=== PATIENT | female | born 1935 | race Caucasian/White ===

== ENCOUNTER → 2017-06-10 | Day surgery (SDC) | payer OTHER ==
[2017-06-06 10:07] VITALS: Ht 160 cm; Wt 81.8 kg
[~2017-06-10] VITALS: Ht 160 cm; Wt 81.8 kg
[~2017-06-10] MED LIST: APR25 PO; ASCO500T3 PO; ASPCH81X PO; ATRINSX INH; CALC600T9 PO; CARV25TA PO; CHOL20007 PO; CLR10 PO; FERR1TAB23 PO; FEXO1TAB49 PO; INSDGI SC; LEVO200T6 PO; LIDOCAINE HCL 2% 2 ML VIAL (20MG/ML) ONE; MAGN400T6 PO; NVLGI/PEN SC; ONDANSETRON INJ 2 MG/ML 2 ML VIAL ONE; PANT40TA PO; PROPOFOL IV EMULSION 10 MG/ML 20 ML VIAL IV ONE; SERT50TA PO; SIMV10TA2 PO; SODIUM CHLORIDE 0.9% 500ML 500 ML IV ONE; TORS20TA2 PO; TRAM-10 PO
--- NOTE | 2017-06-10 10:33 | Endo History and Physical ---
History & Physical Date of Service: Jun 10, 2017. Chief Complaint: Hx polyps, Abnormal CT, RLQ pain Referring Physician: Suzanne Adams History of Present Illness RLQ pain with asymmetric wall thickening of cecum on CT. Past Medical History Anxiety, CHF, Hypertension, Kidney Disease, Valve Replacement, Depression Past Surgical History Hx Cardiac Surgery: Yes (HEART CATH, MITRAL VALVE REPAIR) Hx Internal Defibrillator: No Hx Pacemaker: No Hx Abdominal Surgery: Yes ([place], BILAT OOPHERECTOMY, HYSTERECTOMY) Hx of Implantable Prosthesis: No Hx Post-Op Nausea and Vomiting: No Hx Cancer Surgery: No Hx Thoracic Surgery: No Hx Orthopedic: No Hx Urinary Tract Surgery: No Family History Polyp, IBD Social History Smoking Status: Never Smoker Hx Substance Use: No Hx Alcohol Use: Yes (OCCASIONALLY WINE) Allergies Coded Allergies: No Known Allergies (Unverified , 06/06/17) Current Medications Reported Home Medications Medications Dose Route/Sig Max Daily Dose Days Date Category Lantus (Insulin Glargine) 100 Unit/Ml Inj 10 SC QPM 06/10/17 Reported Claritin (Loratadine) 10 Mg Tab 10 Mg PO QAM 06/06/17 Reported Vitamin D3 (Cholecalciferol) 2,000 Unit Tab 1 Tab PO QAM 04/22/17 Reported Vitamin C (Ascorbic Acid) 500 Mg Tab 1 Tab PO QAM 04/22/17 Reported Calcium + D (Calcium Carbonate-Vitamin D) 1 Tab Tab 1 Tab PO QAM 04/22/17 Reported Aspirin Chewable (Aspirin) 81 Mg Chew 81 Mg PO QAM 04/22/17 Reported Atrovent 0.02% Soln (Ipratropium [place]) 2.5 Ml Nebu 1 Dose INH DIRECTED PRN 04/22/17 Reported Iron (Ferrous Sulfate) 325 Mg Tab 2 Tab PO QAM 04/22/17 Reported Coreg (Carvedilol) 25 Mg Tab 25 Mg PO BID 04/22/17 Reported Levothyroxine Sodium 200 Mcg Tab 1 Tab PO QAM 90 04/22/17 Reported Zocor (Simvastatin) 10 Mg Tab 10 Mg PO QPM 04/22/17 Reported Apresoline (Hydralazine Hcl) 25 Mg Tab 25 Mg PO TID 04/22/17 Reported Demadex (Torsemide) 20 Mg Tab 20 Mg PO BID 04/22/17 Reported Ultram (Tramadol HCl) 50 Mg Tab 50 Mg PO Q8H PRN 04/22/17 Reported Novolog Flexpen (Insulin Aspart) 100 Units/Ml Inj 16 Units SC TID 04/22/17 Reported Zoloft (Sertraline HCl) 50 Mg Tab 50 Mg PO QAM 04/22/17 Reported Telma Allergy (Fexofenadine Hcl) 180 Mg Tab 1 Tab PO HS 04/22/17 Reported Mag-Ox (Magnesium Oxide) 400 Mg Tab 400 Mg PO BID 04/22/17 Reported Protonix (Pantoprazole Sodium) 40 Mg Tab 40 Mg PO QAM 04/22/17 Reported Vital Signs Weight (Kilograms): 81.82 Height (Feet): 5 Height (Inches): 3 Date Time Temp Pulse Resp B/P (MAP) Pulse Ox O2 Delivery O2 Flow Rate FiO2 06/10/17 09:47 36.4 67 18 195/77 (116) 100 Room Air Physical Exam General Appearance: WD/WN, no apparent distress (anxious) Respiratory/Chest: Auscultation: breath sounds normal, no wheezing Cardiovascular: Heart Auscultation: RRR, no murmurs Assessment and Plan Colonoscopy today.
--- NOTE | 2017-06-10 11:17 | GI REPORT ---
Procedure Date: 06/10/2017 10:27 AM Procedure: Colonoscopy Indications: Abdominal pain in the right lower quadrant, Abnormal CT of the GI tract Medicines: Monitored Anesthesia Care Complications: No immediate complications. Estimated blood loss: None. Estimated Blood Loss: Estimated blood loss: none. Procedure: Pre-Anesthesia Assessment: - Prior to the procedure, a History and Physical was performed, and patient medications, allergies and sensitivities were reviewed. The patient's tolerance of previous anesthesia was reviewed. - ASA Grade Assessment: III - A patient with severe systemic disease. After I obtained informed consent, the scope was passed under direct vision. Throughout the procedure, the patient's blood pressure, pulse, and oxygen saturations were monitored continuously. The scope was introduced through the anus and advanced to the terminal ileum, with identification of the appendiceal orifice and IC valve. The colonoscopy was performed with ease. The patient tolerated the procedure well. Findings: Scattered diverticula were found in the sigmoid colon and ascending colon. Impression: - Diverticulosis in the sigmoid colon and in the ascending colon. - No specimens collected. - The colon was otherwise normal to the terminal ileum with retroflexed views of the colon and terminal ileum. Recommendation: - Discharge patient to home (with escort). Jerald Cuevas M.D. Jerald Cuevas MD 06/10/2017 11:17:18 AM This report has been signed electronically. Note Initiated On: 06/10/2017 10:27 AM I attest to the content of the Intraoperative Record and orders documented therein, exceptions below
--- NOTE | 2017-06-10 11:23 | Discharge Instructions ---
Endoscopy Patient Instructions Date / Procedure(s) Performed Jun 10, 2017. Colonoscopy Allergy Information Coded Allergies: No Known Allergies (Unverified , 06/06/17) Discharge Date / Findings Jun 10, 2017. Diverticulosis. Medication Instructions Restart Stopped Medication(s): Restart all medications today Provider Instructions Activity Restrictions - No exercising or heavy lifting for 24 hours. - Do not drink alcohol the day of the procedure. - Do not drive a car or operate machinery until the day after the procedure. - Do not make any important decisions or sign important papers in 24 hours after the procedure. Following Day: - Return to full activity which may include returning to work/school. Diet Start your diet with liquids and light foods (jello, soup, juice, toast). Then eat your usual diet if not nauseated. Treatment For Common After Affects For mild abdominal pain, bloating, or excessive gas: - Rest - Eat lightly - Lie on right side Follow-Up Information Follow-up with Suzanne Adams as scheduled Anesthesia Information What You Should Know You have had a procedure that required some medicine to reduce anxiety and discomfort. This treatment is called moderate sedation. After receiving the treatment, you may be sleepy, but you will be able to breathe on your own. The effects of the treatment may last for several hours. Follow these instructions along with Activity/Diet recommendations noted above: * Do NOT do anything where dizziness or clumsiness would be dangerous. * Rest quietly at home today, then you can be up and about tomorrow. * Have a responsible person stay with you the rest of today. * You may have had an I.V. today. If so, you may take the dressing off later today. Recommendations Call your doctor if: * Trouble breathing * Continuous vomiting for more than 24 hours * Temperature above 101 degrees * Severe abdominal pain or bloating * Pain not relieved by pain medicine ordered * There is increased drainage or redness from any incision * A large amount of rectal bleeding greater than 2-3 tablespoons. (If you had a polyp/s removed or have hemorrhoids, a small amount of blood - from the rectum is to be expected.) * You have any unanswered questions or concerns. IN THE EVENT OF A SERIOUS EMERGENCY, GO TO THE NEAREST EMERGENCY ROOM Your discharge instructions were prepared by provider Jerald Cuevas. Patient Instructions Signature Page Jemma Gunter Patient (or Guardian) Signature/Date: I have read and understand the instructions given to me by my caregivers. Caregiver/RN/Doctor Signature/Date: The above-named patient and/or guardian has received patient instructions on this date. + Original Patient Signature Page (only) stays with chart. Please make copy for patient.
--- NOTE | 2017-06-10 11:25 | Anesthesiology Progress Note ---
Anesthesia Post Op Note Date & Time Jun 10, 2017 at 11:25 Vital Signs Vital Signs Past 12 Hours Date Time Temp Pulse Resp B/P (MAP) Pulse Ox O2 Delivery O2 Flow Rate FiO2 06/10/17 11:15 36.1 66 18 122/63 (82) 100 Room Air 06/10/17 09:47 36.4 67 18 195/77 (116) 100 Room Air Notes Mental Status: alert / awake / arousable, participated in evaluation Pt Amnestic to Procedure: Yes Nausea / Vomiting: adequately controlled Pain: adequately controlled Airway Patency, RR, SpO2: stable & adequate BP & HR: stable & adequate Hydration State: stable & adequate Anesthetic Complications: no major complications apparent
[2017-06-10 11:46] VITALS: BP 149/70; PULSE 68; O2SAT 100
== END | disposition home or self-care (01) ==
LOC: C.GI 09:10
PROVIDERS: ATTEND Internal Medicine Gastroenterology
DX: K57.30 Diverticulosis of large intestine without perforation or abscess without bleeding (principal); I13.0 Hypertensive heart and chronic kidney disease with heart failure and stage 1 through stage 4 chronic kidney disease, or unspecified chronic kidney disease; N18.3 Chronic kidney disease, stage 3 (moderate); I50.9 Heart failure, unspecified; E11.22 Type 2 diabetes mellitus with diabetic chronic kidney disease; J45.909 Unspecified asthma, uncomplicated; K21.9 Gastro-esophageal reflux disease without esophagitis; R32 Unspecified urinary incontinence; D64.9 Anemia, unspecified; F32.9 Major depressive disorder, single episode, unspecified; F41.9 Anxiety disorder, unspecified; E11.42 Type 2 diabetes mellitus with diabetic polyneuropathy; M81.0 Age-related osteoporosis without current pathological fracture; Z79.4 Long term (current) use of insulin; Z79.82 Long term (current) use of aspirin; Z79.899 Other long term (current) drug therapy

== ENCOUNTER 2017-07-07 12:36 | Inpatient (IN) | payer OTHER ==
[~2017-07-07] VITALS: Ht 157.5 cm; Wt 87.0 kg
[~2017-07-07 12:36] MED LIST changes: -LIDOCAINE HCL 2% 2 ML VIAL (20MG/ML) ONE; -ONDANSETRON INJ 2 MG/ML 2 ML VIAL ONE; -PROPOFOL IV EMULSION 10 MG/ML 20 ML VIAL IV ONE; -SODIUM CHLORIDE 0.9% 500ML 500 ML IV ONE
--- NOTE | 2017-07-07 13:26 | EMERGENCY ROOM VISIT NOTE ---
History Report prepared by Destinee: Nasir Tejada Under the Supervision of: Dr. William Johnson M.D. First contact with patient: 13:08 Chief Complaint: SYNCOPE Stated Complaint: PASSED OUT, WEAK, DIABETES LOW Nursing Triage Summary: Pt reports she thought her blood sugar was low last night and went to check it and passed out. This happened around 10pm last night. Pt was lying on floor until 1000 this morning until woke up and called family to help her up. Denies pain. Headache. History of Present Illness The patient is a 81 year old female who presents to the Emergency Room with complaints of episodic syncope at 2200 last night. She notes that she went to her kitchen and then woke up on the floor. She states that she screamed for her , though he was asleep and never came to help her. She woke up on her back and is unsure of how long she was out. She stayed on the floor all night without a blanket. She was found at 1000 this morning by her family members. She has a history of diabetes and reports feeling like her vitals were dropping right before she passed out. She states that she has been nauseous for six months. Her PCP prescribed her Zofran for 4 mg every four hours. She was able to eat food yesterday. She was given chocolate milk this morning and notes her blood sugar was 85. She regularly takes Aspirin. She states that she has not taken her medication this morning because she was nauseous. She denies any fevers or recent illnesses. She notes leg pain. She is scheduled to see Dr. Calle this week. She has lost 30 pounds in the last year and has been unable to eat much in the last six months. Source of History: patient Onset: 2200 last night Position: other (global ) Quality: other (syncope) Timing: other (episodic) Associated Symptoms: + LOC, + nausea, No fevers Note: She denies any recent illnesses. She notes leg pain. Review of Systems See HPI for pertinent positives & negatives. A total of 10 systems reviewed and were otherwise negative. Past Medical & Surgical Medical Problems: (1) CHF (congestive heart failure) (2) CHF (congestive heart failure) (3) Chronic kidney disease (CKD), stage III (moderate) (4) Coronary artery disease (5) Depression (6) Diabetes mellitus, type II (7) Dyslipidemia (8) Fall (9) GERD (gastroesophageal reflux disease) (10) History of adenomatous polyp of colon (11) History of pleural effusion (12) Hypertension (13) Hypothyroidism (14) Mitral valve regurgitation (15) Osteoporosis (16) Pulmonary nodule (17) Venous insufficiency of both lower extremities Surgical Problems: (1) Status post cataract extraction (2) Status post cholecystectomy (3) Status post hysterectomy (4) Status post mitral valve replacement Old medical records were reviewed. Nurse's notes were reviewed and I agree with. Family History FH: heart disease MOTHER Hypertension Social History Smoking Status: Never Smoker Drug Use: none Marital Status: Housing Status: lives with significant other Occupation Status: retired Current/Historical Medications Scheduled Ascorbic Acid (Vitamin C), 1 TAB PO QAM Aspirin (Aspirin Chewable), 81 MG PO QAM Carvedilol (Coreg), 25 MG PO BID Cholecalciferol (Vitamin D3), 1 TAB PO QAM Ferrous Sulfate (Iron), 1 TAB PO BID Hydralazine Hcl (Apresoline), 25 MG PO TID Insulin Aspart (Novolog Flexpen), 16 UNITS SC BID Insulin Glargine (Lantus), 10 SC QPM Levothyroxine Sodium (Levothyroxine Sodium), 1 TAB PO QAM Loratadine (Claritin), 10 MG PO QAM Magnesium Oxide (Mag-Ox), 400 MG PO BID Pantoprazole (Protonix), 40 MG PO QAM Sertraline (Zoloft), 1 TAB PO DAILY Simvastatin (Zocor), 10 MG PO QPM Torsemide (Demadex), 20 MG PO BID Scheduled PRN Ipratropium [place] (Atrovent 0.02% Soln), 1 DOSE INH DIRECTED PRN for Shortness of Breath Ondansetron Hcl (Zofran), 4 MG PO Q4H PRN for Nausea Tramadol (Ultram), 50 MG PO Q8H PRN for Pain Allergies Coded Allergies: No Known Allergies (Unverified , 07/07/17) Physical Exam Vital Signs Date Time Temp Pulse Resp B/P (MAP) Pulse Ox O2 Delivery O2 Flow Rate FiO2 07/07/17 17:17 92 14 120/55 97 Room Air 07/07/17 15:53 85 14 134/68 100 Room Air 07/07/17 14:34 83 16 118/52 100 Room Air 07/07/17 14:01 88 07/07/17 13:55 85 128/80 93 116/60 109/54 07/07/17 12:51 36.3 86 18 111/61 100 Room Air Physical Exam General: Chronically-ill appearing older female, in no acute distress. HEENT: Normal cephalic atraumatic. Pupils are equal round and reactive to light. Extraocular movements are intact. Oropharynx is pink with moist mucous membranes. No swelling of the mouth lips or tongue. Neck: Supple with a midline trachea. No meningeal signs or stiffness, no JVD or bruits. No Stridor. Chest: Clear to auscultation bilaterally. No wheezes or rhonchi. No increased work of breathing. Small bruise on left breast. Heart: regular rate and rhythm. Abdomen: Soft nontender, nondistended without rebound guarding or rigidity. Extremities: No cyanosis clubbing. Chronic pedal edema bilaterally. No calf tenderness or assymetry Spine/Back. Non tender to palpation. No CVA tenderness Skin: Good turgor without rashes. Neurologic exam: Cranial nerves two through 12 are intact. Motor and sensation are intact and symmetrical throughout. Medical Decision & Procedures ER Provider Diagnostic Interpretation: Radiology results as stated below per my review and radiologist interpretation: CHEST ONE VIEW PORTABLE CLINICAL HISTORY: 81 years-old Female presenting with SYNCOPE. TECHNIQUE: Portable upright AP view of the chest was obtained. COMPARISON: 05/02/2016. FINDINGS: Several presumed pericardial wires project over the right hilum and right mediastinum. Surgical clips also noted in this region. Prosthetic mitral valve suspected. Atherosclerosis of aortic arch. Cardiac silhouette enlarged. Left basilar opacity persists. Bilateral blunting of the costophrenic angles greater on the right, possibly pleural fluid or pleural thickening. A prominent skin fold is noted along the lower right lateral thorax. No pneumothorax. 3 screw fixation of the mandibular symphysis noted. Upper abdomen normal. IMPRESSION: 1. Cardiomegaly unchanged. No convincing evidence of acute cardiopulmonary disease. 2. Nodular consolidation at the left lung base corresponds with rounded atelectasis noted on prior CT from 09/16/2015. Electronically signed by: Nathan Hendrix M.D. 07/07/2017 1:23 PM Dictated Date/Time: 07/07/2017 1:20 PM HEAD WITHOUT CONTRAST (CT) CLINICAL HISTORY: 81 years-old Female presenting with eval for trauma, history of syncope last night, on the floor till this morning, found down, headache. TECHNIQUE: Multidetector CT imaging of the head was performed without the use of intravenous contrast. IV contrast: None. A dose lowering technique was used consistent with the principles of ALARA (as low as reasonably achievable). COMPARISON: 05/02/2016. CT DOSE (mGy.cm): The estimated cumulative dose is 537.48 mGy.cm. FINDINGS: Parer topogram: Unremarkable. Proportional ventricular and sulcal prominence, likely age-related parenchymal volume loss. Brain parenchyma normal in appearance with preserved johnson-white differentiation. No mass effect or midline shift. No hemorrhage or acute territorial infarct. No extra-axial fluid collection. Paranasal sinuses and mastoid air cells clear. Calvarium intact. IMPRESSION: 1. No acute intracranial abnormality. Electronically signed by: Nathan Hendrix M.D. 07/07/2017 3:41 PM Dictated Date/Time: 07/07/2017 3:39 PM Laboratory Results 07/07/17 13:49 Red Blood Count 4.69, Mean Corpuscular Volume 92.5, Mean Corpuscular Hemoglobin 31.1, Mean Corpuscular Hemoglobin Concent 33.6, Mean Platelet Volume 9.8, Neutrophils (%) (Auto) 88.5, Lymphocytes (%) (Auto) 5.4, Monocytes (%) (Auto) 5.4, Eosinophils (%) (Auto) 0.0, Basophils (%) (Auto) 0.2, Neutrophils # (Auto) 11.66, Lymphocytes # (Auto) 0.71, Monocytes # (Auto) 0.71, Eosinophils # (Auto) 0.00, Basophils # (Auto) 0.02 07/07/17 13:49 07/07/17 15:01 Test 07/07/17 13:01 07/07/17 13:49 07/07/17 15:01 07/07/17 17:04 Bedside Glucose 176 mg/dl (70-90) White Blood Count 13.16 K/uL (4.8-10.8) Red Blood Count 4.69 M/uL (4.2-5.4) Hemoglobin 14.6 g/dL (12.0-16.0) Hematocrit 43.4 % (37-47) Mean Corpuscular Volume 92.5 fL (80-100) Mean Corpuscular Hemoglobin 31.1 pg (25-34) Mean Corpuscular Hemoglobin Concent 33.6 g/dl (32-36) Platelet Count 274 K/uL (130-400) Mean Platelet Volume 9.8 fL (7.4-10.4) Neutrophils (%) (Auto) 88.5 % Lymphocytes (%) (Auto) 5.4 % Monocytes (%) (Auto) 5.4 % Eosinophils (%) (Auto) 0.0 % Basophils (%) (Auto) 0.2 % Neutrophils # (Auto) 11.66 K/uL (1.4-6.5) Lymphocytes # (Auto) 0.71 K/uL (1.2-3.4) Monocytes # (Auto) 0.71 K/uL (0.11-0.59) Eosinophils # (Auto) 0.00 K/uL (0-0.5) Basophils # (Auto) 0.02 K/uL (0-0.2) RDW Standard Deviation 49.6 fL (36.4-46.3) RDW Coefficient of Variation 14.7 % (11.5-14.5) Immature Granulocyte % (Auto) 0.5 % Immature Granulocyte # (Auto) 0.06 K/uL (0.00-0.02) Anion Gap 9.0 mmol/L (3-11) Est Creatinine Clear Calc Drug Dose 25.9 ml/min Estimated GFR () 31.5 Estimated GFR (Non- 27.2 BUN/Creatinine Ratio 9.4 (10-20) Calcium Level 8.7 mg/dl (8.5-10.1) Total Bilirubin 0.7 mg/dl (0.2-1) Alanine Aminotransferase (ALT/SGPT) 36 U/L (12-78) Alkaline Phosphatase 89 U/L (45-117) Creatine Kinase MB 13.6 ng/ml (0.5-3.6) Creatine Kinase MB Ratio (0-3.0) Troponin I 0.030 ng/ml (0-0.045) Total Protein 6.7 gm/dl (6.4-8.2) Albumin 2.5 gm/dl (3.4-5.0) Globulin 4.2 gm/dl (2.5-4.0) Albumin/Globulin Ratio 0.6 (0.9-2) Thyroid Stimulating Hormone (TSH) 0.354 uIu/ml (0.300-4.500) Aspartate Amino Transf (AST/SGOT) 55 U/L (15-37) Total Creatine Kinase 581 U/L (26-192) Chemistry Specimen Hemolysis Laboratory studies as stated above per my review. Medications Administered Medications (Trade) Dose Ordered Sig/Ethel Route Start Time Stop Time Status Last Admin Dose Admin Sodium Chloride 1,000 ml @ 100 mls/hr Q10H STAT IV 07/07/17 14:09 07/08/17 00:08 07/07/17 14:31 100 MLS/HR ECG Indication: syncope Rate (beats per minute): 77 Rhythm: normal sinus Findings: no acute ischemic change, no ectopy, other (Poor baseline) Change: no significant change (When compared to 05/02/2016) Change: Patient's electrocardiogram was interpreted by me. ED Course 1309: Past medical records reviewed. The patient was evaluated in room B8, and a complete history and physical examination were performed. 1408: I reassessed the patient at this time. She is resting comfortably. 1409: Ordered Sodium Chloride 1,000 ml @ 100 mls/hr IV 1542: I spoke with Dr. Oakes, hospitalist. We discussed the patients case. The patient will be evaluated by the [facility] for further management. 1550: I reassessed the patient at this time. She is resting comfortably. I discussed the results and treatment plan with the patient. I answered all pertaining questions that she had. She expressed understanding and verbalized agreement. The patient will be further evaluated. Medical Decision Differentials include, but are not limited to hypoglycemia. arrhythmia, cardiac disease, and electrolyte or metabolic abnormality. This patient comes in as described above. She had an episode last evening where she felt like her blood sugar was low and she passed out she laid on the floor all evening. She may have hit her head. she denies any other injury she has chronic leg pain and edema. She has chronic renal insufficiency. She feels thirsty. IV access was established was hydrated gently with IV normal saline at 100 mL an hour. She has a long history of CHF and was hydrated carefully because of this. Her chest x-ray shows cardiomegaly but no overt CHF. Her creatinine is elevated slightly compared to baseline at 1.7. Her CK and CK-MB also mildly elevated which may be from falling is possible he could' ve an early rhabdo. She does not appear to have an acute diabetic emergency at present. I did a CAT scan of her head. I do think she needs to be admitted for hydration and further treatment and evaluation. I have consulted and she was seen by the [facility] team in the ER for these measures. Medication Reconcilliation Current Medication List: was personally reviewed by me Blood Pressure Screening Patient's blood pressure: Normal blood pressure Consults Time Called: 1536 Consulting Physician: Dr. Oakes, hospitalist Returned Call: [address] Oakes, hospitalist. We discussed the patients case. The patient will be evaluated by the [facility] for further management. Impression Primary Impression: Hypoglycemia Additional Impressions: Dehydration Rhabdomyolysis Scribe Attestation The scribe's documentation has been prepared under my direction and personally reviewed by me in its entirety. I confirm that the note above accurately reflects all work, treatment, procedures, and medical decision making performed by me. Departure Information Dispostion Being Evaluated By Hospitalist Referrals Suzanne Adams M.D. (PCP) Patient Instructions My [facility] Problem Qualifiers
[2017-07-07 14:01] LABS: BASO % 0.2 %; BASO ABS # 0.02 K/uL (0-0.2); HEMATOCRIT 43.4 % (37-47); HEMOGLOBIN 14.6 g/dL (12.0-16.0); IG# 0.06 K/uL (0.00-0.02); LYMPH % 5.4 %; LYMPH ABS # 0.71 K/uL (1.2-3.4); MEAN CELL VOLUME 92.5 fL (80-100); MEAN CORPUSCULAR HEMOGLOBIN 31.1 pg (25-34); MEAN CORPUSCULAR HGB CONC 33.6 g/dl (32-36); MEAN PLATELET VOLUME 9.8 fL (7.4-10.4); MONO % 5.4 %; MONO ABS # 0.71 K/uL (0.11-0.59); NEUT % 88.5 %; NEUT ABS # 11.66 K/uL (1.4-6.5); PLATELET COUNT 274 K/uL (130-400); RED CELL DISTRIBUTION WIDTH CV 14.7 % (11.5-14.5); RED CELL DISTRIBUTION WIDTH SD 49.6 fL (36.4-46.3); WHITE BLOOD COUNT 13.16 K/uL (4.8-10.8)
[2017-07-07] MEDS ORDERED: SODIUM CHLORIDE 0.9% 1000ML 1,000 ML IV STA (14:09)
[2017-07-07 14:28] LABS: ALBUMIN 2.5 gm/dl (3.4-5.0); ALT/SGPT 36 U/L (12-78); BLOOD UREA NITROGEN 16 mg/dl (7-18); CALCIUM 8.7 mg/dl (8.5-10.1); CARBON DIOXIDE 29 mmol/L (21-32); CREATININE 1.75 mg/dl (0.60-1.20); GLUCOSE 201 mg/dl (70-99); SODIUM 136 mmol/L (136-145)
[2017-07-07 14:41] LABS: ALKALINE PHOSPHATASE 89 U/L (45-117); CKMB 13.6 ng/ml (0.5-3.6); TOTAL PROTEIN 6.7 gm/dl (6.4-8.2)
[2017-07-07 15:24] LABS: POTASSIUM 4.8 mmol/L (3.5-5.1)
--- NOTE | 2017-07-07 15:43 | DIAGNOSTIC IMAGING REPORT ---
HEAD WITHOUT CONTRAST (CT) CLINICAL HISTORY: 81 years-old Female presenting with eval for trauma, history of syncope last night, on the floor till this morning, found down, headache. TECHNIQUE: Multidetector CT imaging of the head was performed without the use of intravenous contrast. IV contrast: None. A dose lowering technique was used consistent with the principles of ALARA (as low as reasonably achievable). COMPARISON: 05/02/2016. CT DOSE (mGy.cm): The estimated cumulative dose is 537.48 mGy.cm. FINDINGS: Motion Picture Camera Lens Technician topogram: Unremarkable. Proportional ventricular and sulcal prominence, likely age-related parenchymal volume loss. Brain parenchyma normal in appearance with preserved johnson-white differentiation. No mass effect or midline shift. No hemorrhage or acute territorial infarct. No extra-axial fluid collection. Paranasal sinuses and mastoid air cells clear. Calvarium intact. IMPRESSION: 1. No acute intracranial abnormality. Electronically signed by: Nathan Hendrix M.D. 07/07/2017 3:41 PM Dictated Date/Time: 07/07/2017 3:39 PM
[2017-07-07] MEDS ORDERED: SERT-234 PO (16:10)
[2017-07-07] MEDS ORDERED: ONDANSETRON INJ 2 MG/ML 2 ML VIAL IV PRN (16:30)
[2017-07-07] MEDS ORDERED: MAGNESIUM HYDROXIDE SUSP 30 ML UDC PO PRN (16:30)
[2017-07-07] MEDS ORDERED: GLUCAGON FOR INJ 1 MG VIAL SQ PRN (16:30)
[2017-07-07] MEDS ORDERED: GLUCOSE 10 TABS/TUBE PO PRN (16:30)
[2017-07-07] MEDS ORDERED: ALUMINUM/MAGNESIUM/SIMETH (MAALOX MAX) 30 ML UDC PO PRN (16:30)
[2017-07-07] MEDS ORDERED: PHARMACY GLYCEMIC MGMT CONSULT PRN (16:45)
[2017-07-07] MEDS ORDERED: ONDA4TAB46 PO (16:51)
--- NOTE | 2017-07-07 17:14 | Pharmacy Progress Note ---
Glycemic Control Intl Consult Date of Service Jul 07, 2017. Scope Glycemic Pharmacist consulted by Dr Oakes on 07/07/17 for glycemic control and to write orders per [facility] inpatient glycemic control protocol Objective Weight (Kilograms): 82.000 Accuchecks BSG (last 24hrs): Test 07/07/17 13:01 07/07/17 13:49 Bedside Glucose 176 mg/dl (70-90) Random Glucose 201 mg/dl (70-99) Laboratory Data (last 24hrs) Test 07/07/17 13:49 07/07/17 15:01 Anion Gap 9.0 mmol/L BUN/Creatinine Ratio 9.4 Blood Urea Nitrogen 16 mg/dl Creatinine 1.75 mg/dl Potassium Level mmol/L 4.8 mmol/L Sodium Level 136 mmol/L White Blood Count 13.16 K/uL Red Blood Count 4.69 M/uL Hemoglobin 14.6 g/dL Hematocrit 43.4 % Mean Corpuscular Volume 92.5 fL Mean Corpuscular Hemoglobin 31.1 pg Mean Corpuscular Hemoglobin Concent 33.6 g/dl Platelet Count 274 K/uL Mean Platelet Volume 9.8 fL Neutrophils (%) (Auto) 88.5 % Lymphocytes (%) (Auto) 5.4 % Monocytes (%) (Auto) 5.4 % Eosinophils (%) (Auto) 0.0 % Basophils (%) (Auto) 0.2 % Neutrophils # (Auto) 11.66 K/uL Lymphocytes # (Auto) 0.71 K/uL Monocytes # (Auto) 0.71 K/uL Eosinophils # (Auto) 0.00 K/uL Basophils # (Auto) 0.02 K/uL HbA1c 9.4% on 11/02/15 (outdated) Recent Pertinent Medications Outpatient Anti-diabetic Regimen: * Lantus 10 units SQ HS * NovoLog 10 units SQ TIDM Assessment & Plan ASSESSMENT: * 81yo T2DM female known to pharmacy from previous admissions/glycemic consults. * Degree of outpatient control unknown - last A1c is outdated. * Pt is admitted with dehydration, weakness, fall possible low blood sugar last evening. * Pt typically requires ~ 30-50 units per day per previous admissions. * Will start on the more conservative side of 30 units/day to minimize risk of hypoglycemia and titrate doses based on BSG trends. * Pt only ordered clear liquid diet so conservative dosing warranted. PLAN FOR INPATIENT GLYCEMIC CONTROL: * Basal insulin * Start with Lantus 10 units SQ HS (outpatient dosing) * May consider increasing dose vs changing to BID if needed tomorrow based on AM fasting BSG * Bolus insulin * NovoLog per scale ACHS or Q6hrs while NPO. Additional checks/coverage at 0000 & 0400 to assess for hypo vs supplement rapid acting insulin incase basal insulin was underdosed. * Goal Range: Low 120 mg/dL - High 160 mg/dL * Correction Factor: 25 mg/dL/unit * Nutritional / Prandial insulin per carb ratio of 1 unit per 8 grams CHO consumed * A1c tomorrow with AM labs * Please note that the plan above was derived based on current level of insulin resistance and hospital stress. These recommendations are appropriate for inpatient admission only. Plan of care upon discharge will need to be reassessed to avoid potential outpatient hypo/hyperglycemia. Thank you.
[2017-07-07] MEDS ORDERED: METOCLOPRAMIDE HCL 10 MG TAB PO PRN (17:45)
[2017-07-07] MEDS ORDERED: INSULIN GLARGINE SOLOSTAR 100 UNITS/ML 3 ML PEN SC SCH ×2 (18:00→21:00)
[2017-07-07 18:21] VITALS: BP 134/74; PULSE 87; TEMP 36.9; O2SAT 97; BMI 33.1
[2017-07-07 18:55] LABS: INR 1.2 (0.9-1.1)
[2017-07-07] MEDS: INSULIN ASPART 100 UNITS/ML 3 ML PEN SC SCH ×3 (19:10→23:49)
[2017-07-07] MEDS: FERROUS SULFATE 325 MG TAB PO SCH (19:11)
--- NOTE | 2017-07-07 19:11 | History and Physical ---
History & Physical Date & Time of Service: Jul 07, 2017 at 18:12 Chief Complaint: Passed Out, Weak, Diabetes Low Primary Care Physician: Suzanne Adams M.D. History of Present Illness Source: patient, family, clinic records, hospital records This is a 81 year old female with a PMH of uncontrolled, insulin dependent diabetes mellitus type 2 with complications including neuropathy, nephropathy and likely gastroparesis; nonobstructive CAD; hx. of mitral valve repair; diastolic CHF; recurrent pleural effusion requiring thoracentesis; HTN; hypothyroidism; CKD stage 3 - presents after getting dizzy, passing out and falling. States she was in her usual state of health until late last night (07/06 ) - she felt like her sugars were low and was planning on going to check when she became dizzy, blacked out and fell to the ground. She does not recall what she hit. States that she was on the ground for about 10-12 hours. She is telling me that she has been nauseous for months now. Because of her nausea, she becomes hypoglycemic when she does not eat. She states that for the past few days, the nausea has been worse, but she has continued to use her Lantus 10 units and NovoLog 10 units twice a day. She tells me that she recently had a colonoscopy with no acute findings; she was started on Zofran. Past Medical/Surgical History Medical Problems: (1) CHF (congestive heart failure) Permanent Comment: due to diastolic dysfunction + valvular heart disease Status: Chronic (2) Chronic kidney disease (CKD), stage III (moderate) Status: Chronic (3) Coronary artery disease Permanent Comment: 40% LAD 2005 Status: Chronic (4) Depression Status: Chronic (5) Diabetes mellitus, type II Status: Chronic (6) Dyslipidemia Status: Chronic (7) GERD (gastroesophageal reflux disease) Status: Chronic (8) History of adenomatous polyp of colon Status: Chronic (9) History of pleural effusion Permanent Comment: s/p thoracentesis Status: Chronic (10) Hypertension Status: Chronic (11) Hypothyroidism Status: Chronic (12) Mitral valve regurgitation Status: Chronic (13) Osteoporosis Status: Chronic (14) Venous insufficiency of both lower extremities Status: Chronic Surgical Problems: (1) Status post cataract extraction Status: Chronic (2) Status post cholecystectomy Status: Chronic (3) Status post hysterectomy Status: Chronic (4) Status post mitral valve replacement Status: Chronic Family History FH: heart disease MOTHER Hypertension Social History Smoking Status: Never Smoker Drug Use: none Marital Status: Housing status: lives with significant other Occupational Status: retired Immunizations History of Influenza Vaccine: Yes Influenza Vaccine Date: Feb 25, 2014 History of Tetanus Vaccine?: Yes Tetanus Immunization Date: Dec 14, 2011 History of Pneumococcal: Yes Pneumococcal Date: Dec 19, 2007 History of Hepatitis B Vaccine: Yes Multi-Drug Resistant Organisms History of MDRO: No Allergies Coded Allergies: No Known Allergies (Unverified , 07/07/17) Home Medications Scheduled Ascorbic Acid (Vitamin C), 1 TAB PO QAM Aspirin (Aspirin Chewable), 81 MG PO QAM Carvedilol (Coreg), 25 MG PO BID Cholecalciferol (Vitamin D3), 1 TAB PO QAM Ferrous Sulfate (Iron), 1 TAB PO BID Hydralazine Hcl (Apresoline), 25 MG PO TID Insulin Aspart (Novolog Flexpen), 16 UNITS SC BID Insulin Glargine (Lantus), 10 SC QPM Levothyroxine Sodium (Levothyroxine Sodium), 1 TAB PO QAM Loratadine (Claritin), 10 MG PO QAM Magnesium Oxide (Mag-Ox), 400 MG PO BID Pantoprazole (Protonix), 40 MG PO QAM Sertraline (Zoloft), 1 TAB PO DAILY Simvastatin (Zocor), 10 MG PO QPM Torsemide (Demadex), 20 MG PO BID Scheduled PRN Ipratropium Huntley (Atrovent 0.02% Soln), 1 DOSE INH DIRECTED PRN for Shortness of Breath Ondansetron Hcl (Zofran), 4 MG PO Q4H PRN for Nausea Tramadol (Ultram), 50 MG PO Q8H PRN for Pain Review of Systems Constitutional: + weakness, + fatigue, No fever, No chills Respiratory: No cough, No sputum, No wheezing, No shortness of breath, No dyspnea on exertion, No dyspnea at rest, No hemoptysis Cardiovascular: No chest pain, No edema, No palpitations Abdomen: + nausea, No pain, No vomiting, No diarrhea, No constipation, No GI bleeding Musculoskeletal: No joint pain, No muscle pain Genitourinary - Female: No dysuria, No urinary frequency, No urinary urgency, No urinary incontinence, No urinary retention, No hematuria Neurologic: + weakness, + numbness/tingling, + vertigo, + balance problems, No memory loss, No paralysis Endocrine: + fatigue, No excessive thirst, No excessive urination Hematologic / Lymphatic: No abnormal bleeding/bruising Integumentary: No rash Allergic / Immunologic: No environmental allergies, No seasonal allergies Physical Exam Vital Signs Date Time Temp Pulse Resp B/P (MAP) Pulse Ox O2 Delivery O2 Flow Rate FiO2 07/07/17 17:17 92 14 120/55 97 Room Air 07/07/17 15:53 85 14 134/68 100 Room Air 07/07/17 14:34 83 16 118/52 100 Room Air 07/07/17 14:01 88 07/07/17 13:55 85 128/80 93 116/60 109/54 07/07/17 12:51 36.3 86 18 111/61 100 Room Air General Appearance: no apparent distress Head: normocephalic, atraumatic Eyes: normal inspection Respiratory/Chest: chest non-tender, no respiratory distress, no accessory muscle use, + decreased breath sounds Cardiovascular: regular rate, rhythm, no murmur Abdomen/GI: normal bowel sounds, non tender, soft Extremities/Musculoskelatal: + swelling (lower extremity edema), + pertinent finding Neurologic/Psych: no motor/sensory deficits, alert, normal mood/affect, oriented x 3 Skin: normal color Lymphatic: no adenopathy Diagnostics Laboratory Results Results Past 24 Hours Test 07/07/17 13:01 07/07/17 13:49 07/07/17 15:01 07/07/17 17:04 Range/Units Bedside Glucose 176 70-90 mg/dl White Blood Count 13.16 4.8-10.8 K/uL Red Blood Count 4.69 4.2-5.4 M/uL Hemoglobin 14.6 12.0-16.0 g/dL Hematocrit 43.4 37-47 % Mean Corpuscular Volume 92.5 80-100 fL Mean Corpuscular Hemoglobin 31.1 25-34 pg Mean Corpuscular Hemoglobin Concent 33.6 32-36 g/dl Platelet Count 274 130-400 K/uL Mean Platelet Volume 9.8 7.4-10.4 fL Neutrophils (%) (Auto) 88.5 % Lymphocytes (%) (Auto) 5.4 % Monocytes (%) (Auto) 5.4 % Eosinophils (%) (Auto) 0.0 % Basophils (%) (Auto) 0.2 % Neutrophils # (Auto) 11.66 1.4-6.5 K/uL Lymphocytes # (Auto) 0.71 1.2-3.4 K/uL Monocytes # (Auto) 0.71 0.11-0.59 K/uL Eosinophils # (Auto) 0.00 0-0.5 K/uL Basophils # (Auto) 0.02 0-0.2 K/uL RDW Standard Deviation 49.6 36.4-46.3 fL RDW Coefficient of Variation 14.7 11.5-14.5 % Immature Granulocyte % (Auto) 0.5 % Immature Granulocyte # (Auto) 0.06 0.00-0.02 K/uL Sodium Level 136 136-145 mmol/L Potassium Level 4.8 3.5-5.1 mmol/L Chloride Level 98 98-107 mmol/L Carbon Dioxide Level 29 21-32 mmol/L Anion Gap 9.0 3-11 mmol/L Blood Urea Nitrogen 16 7-18 mg/dl Creatinine 1.75 0.60-1.20 mg/dl Est Creatinine Clear Calc Drug Dose 25.9 ml/min Estimated GFR () 31.5 Estimated GFR (Non- 27.2 BUN/Creatinine Ratio 9.4 10-20 Random Glucose 201 70-99 mg/dl Calcium Level 8.7 8.5-10.1 mg/dl Total Bilirubin 0.7 0.2-1 mg/dl Aspartate Amino Transf (AST/SGOT) 55 15-37 U/L Alanine Aminotransferase (ALT/SGPT) 36 12-78 U/L Alkaline Phosphatase 89 45-117 U/L Total Creatine Kinase 581 26-192 U/L Creatine Kinase MB 13.6 0.5-3.6 ng/ml Creatine Kinase MB Ratio 0-3.0 Troponin I 0.030 0-0.045 ng/ml Total Protein 6.7 6.4-8.2 gm/dl Albumin 2.5 3.4-5.0 gm/dl Globulin 4.2 2.5-4.0 gm/dl Albumin/Globulin Ratio 0.6 0.9-2 Thyroid Stimulating Hormone (TSH) 0.354 0.300-4.500 uIu/ml Chemistry Specimen Hemolysis Diagnostic Radiology CHEST ONE VIEW PORTABLE CLINICAL HISTORY: 81 years-old Female presenting with SYNCOPE. TECHNIQUE: Portable upright AP view of the chest was obtained. COMPARISON: 05/02/2016. FINDINGS: Several presumed pericardial wires project over the right hilum and right mediastinum. Surgical clips also noted in this region. Prosthetic mitral valve suspected. Atherosclerosis of aortic arch. Cardiac silhouette enlarged. Left basilar opacity persists. Bilateral blunting of the costophrenic angles greater on the right, possibly pleural fluid or pleural thickening. A prominent skin fold is noted along the lower right lateral thorax. No pneumothorax. 3 screw fixation of the mandibular symphysis noted. Upper abdomen normal. IMPRESSION: 1. Cardiomegaly unchanged. No convincing evidence of acute cardiopulmonary disease. 2. Nodular consolidation at the left lung base corresponds with rounded atelectasis noted on prior CT from 09/16/2015. HEAD WITHOUT CONTRAST (CT) CLINICAL HISTORY: 81 years-old Female presenting with eval for trauma, history of syncope last night, on the floor till this morning, found down, headache. TECHNIQUE: Multidetector CT imaging of the head was performed without the use of intravenous contrast. IV contrast: None. A dose lowering technique was used consistent with the principles of ALARA (as low as reasonably achievable). COMPARISON: 05/02/2016. CT DOSE (mGy.cm): The estimated cumulative dose is 537.48 mGy.cm. FINDINGS: Television Analyzer topogram: Unremarkable. Proportional ventricular and sulcal prominence, likely age-related parenchymal volume loss. Brain parenchyma normal in appearance with preserved johnson-white differentiation. No mass effect or midline shift. No hemorrhage or acute territorial infarct. No extra-axial fluid collection. Paranasal sinuses and mastoid air cells clear. Calvarium intact. IMPRESSION: 1. No acute intracranial abnormality. EKG Normal sinus rhythm Normal ECG Impression Assessment and Plan This is a 81 year old female with a PMH of uncontrolled, insulin dependent diabetes mellitus type 2 with complications including neuropathy, nephropathy and likely gastroparesis; nonobstructive CAD; hx. of mitral valve repair; diastolic CHF; recurrent pleural effusion requiring thoracentesis; HTN; hypothyroidism; CKD stage 3 - presents after a fall Fall and Collapse question of possible hypoglycemia episode? monitor in tele orthostatic vitals PT/OT discharge planning eval IVFs Mild Rhabdo Dehydration BARBARA superimposed on CKD stage 3 elevated CPK level plan to give IVFs repeat CPK in AM monitor creatinine, baseline in the low 1's avoid nephrotoxic agents when able nephrology consulted, pt was to see nephrology later this week Diabetic Gastroparesis patient with worsening nausea Zofran is not working as per patient added [facility] consultation for further input Uncontrolled DM2 Ha1c > 12% significantly uncontrolled DM2 Lantus 10 units BID added sliding scale pharmacy glycemic control consulted will need her outpatient insulin adjusted consider adding an HARLEY-I Nonobstructing CAD continue aspirin, b-opal, statin no current chest pain monitor in tele Diastolic CHF hold Torsemide gentle IV hydration monitor for fluid overload HTN continue hydralazine Hypothyroidism continue Synthroid DVT ppx Lovenox FULL CODE VTE Prophylaxis VTE Risk Assessment Done? Y/N: Yes Risk Level: Moderate
[2017-07-07] MEDS: TRAMADOL HCL 50 MG TAB PO PRN (19:19)
[2017-07-07] MEDS ORDERED: TORSEMIDE 20 MG TAB PO SCH (21:00)
[2017-07-07 21:35] VITALS: BP 106/61; PULSE 92
[2017-07-07] MEDS: MAGNESIUM OXIDE 400 MG TAB PO SCH (21:36)
[2017-07-07] MEDS: CARVEDILOL 25 MG TAB PO SCH (21:37)
[2017-07-07] MEDS: FEXOFENADINE HCL 180 MG TAB PO SCH (21:37)
[2017-07-07] MEDS: SIMVASTATIN 10 MG TAB PO SCH (21:38)
[2017-07-07 23:23] VITALS: BP 110/60; PULSE 82; TEMP 37.1; O2SAT 100
[2017-07-08 03:10] VITALS: BP 107/61; PULSE 74; TEMP 37; O2SAT 95
[2017-07-08] MEDS: DEXTROSE 50% 50 ML SYR IV PRN (04:00)
[2017-07-08] MEDS: INSULIN ASPART 100 UNITS/ML 3 ML PEN SC SCH ×5 (04:00→21:00)
[2017-07-08 05:53] LABS: HEMOGLOBIN 10.4 g/dL (12.0-16.0); MEAN CORPUSCULAR HEMOGLOBIN 30.2 pg (25-34); MEAN CORPUSCULAR HGB CONC 32.5 g/dl (32-36); MEAN PLATELET VOLUME 9.5 fL (7.4-10.4); PLATELET COUNT 239 K/uL (130-400); RED CELL DISTRIBUTION WIDTH CV 14.8 % (11.5-14.5); RED CELL DISTRIBUTION WIDTH SD 50.4 fL (36.4-46.3); WHITE BLOOD COUNT 8.51 K/uL (4.8-10.8)
[2017-07-08] MEDS: LEVOTHYROXINE 200 MCG TAB PO SCH (06:13)
[2017-07-08 06:24] LABS: CALCIUM 7.8 mg/dl (8.5-10.1); CREATININE 1.49 mg/dl (0.60-1.20); POTASSIUM 4.2 mmol/L (3.5-5.1)
[2017-07-08] MEDS: GLUCOSE 40% GEL 15 GM TUBE PO PRN (07:36)
[2017-07-08] MEDS: MAGNESIUM OXIDE 400 MG TAB PO SCH ×2 (07:36→21:07)
[2017-07-08] MEDS: CHOLECALCIFEROL 1000 INTER.UNIT TAB PO SCH (07:37)
[2017-07-08] MEDS: CARVEDILOL 25 MG TAB PO SCH ×2 (07:37→21:07)
[2017-07-08] MEDS: LORATADINE 10 MG TAB PO SCH (07:37)
[2017-07-08] MEDS: ASPIRIN 81 MG CHEW PO SCH (07:38)
[2017-07-08] MEDS: SERTRALINE HCL 100 MG TAB PO SCH (07:38)
[2017-07-08] MEDS: FERROUS SULFATE 325 MG TAB PO SCH ×2 (07:38→16:41)
[2017-07-08] MEDS: CALCIUM 600MG + VIT D 400 IU TAB PO SCH (07:39)
[2017-07-08] MEDS: PANTOprazole SOD 40 MG TAB PO SCH (07:39)
[2017-07-08 07:44] VITALS: BP 109/68; TEMP 36.5; O2SAT 99
[2017-07-08] MEDS ORDERED: D5W AND 1/2NSS 1,000 ML IV SCH (08:15)
[2017-07-08] MEDS: BOOST VANILLA PO SCH ×2 (09:00→14:00)
[2017-07-08] MEDS ORDERED: METOCLOPRAMIDE HCL 10 MG TAB PO PRN (09:00)
[2017-07-08] MEDS: ENOXAPARIN 30 MG/0.3 ML SYR SQ SCH (09:00)
--- NOTE | 2017-07-08 09:05 | Pharmacy Progress Note ---
Glycemic Control Progress Note Date of Service Jul 08, 2017. Scope Glycemic Pharmacist consulted for glycemic control to write orders per [facility] inpatient glycemic control protocol. Objective Accuchecks BSG (last 24hrs): Test 07/07/17 13:01 07/07/17 13:49 07/07/17 18:56 07/07/17 20:26 Bedside Glucose 176 mg/dl (70-90) 208 mg/dl (70-90) 262 mg/dl (70-90) Random Glucose 201 mg/dl (70-99) Test 07/07/17 23:43 07/08/17 04:15 07/08/17 05:20 Bedside Glucose 75 mg/dl (70-90) 114 mg/dl (70-90) Random Glucose 81 mg/dl (70-99) HbA1c: 12.2 % Recent Pertinent Medications The patient is currently receiving: * Basal insulin: Lantus 14 units sq HS * Correctional Insulin: Novolog Correction per scale ACHS Goal Range: Low 120 mg/dL - High 160 mg/dL Correction Factor: 20 mg/dL/unit * Prandial insulin: Per carb ratio of 1 unit per 8 grams CHO consumed Outpatient Anti-Diabetic Meds * Lantus 10 units SQ HS * NovoLog 10 units SQ TIDM Assessment & Plan ASSESSMENT: * See progress note from 07/07/17 for more background info, in short: * Pt receiving SQ basal bolus insulin regimen for hyperglycemia secondary to baseline DM (outpatient regimen on hold). Patient reports worsening diabetic gastroparesis. She has been experiencing hypoglycemia at home. Very poor outpatient control, A1c 12.2%. * Home regimen is bolus heavy. Patient was ordered home dose of Lantus 10 units last evening. An additional dose of 4 units was given due to BSG > 200 mg/dL x2. * BSGs over the past 24hrs: 176, 208, 262, 75, 25, 65 * Changes needed to insulin regimen: * AM Fasting BSG = 65 mg/dl. This is below goal range for patient based on inpatient targets and co-morbidities. Therefore Basal insulin needs decreased. Will change to Lantus dose per scale until needs are better determined. * Post-prandial BSGs are improving, however very limited BSG data at this point. Will loosen current CF/CR due to hypoglycemia overnight, although I suspect this was due basal insulin rather than bolus. PLAN FOR INPATIENT GLYCEMIC CONTROL: * Basal insulin * Lantus SQ HS * 0 units for BSG less than 110 mg/dL * 4 units for BSG 110-180 mg/dL * 8 units for BSG greater than 180 mg/dL * Bolus insulin - loosen * NovoLog per scale ACHS or Q6hrs while NPO * Goal Range: Low 120 mg/dL - High 160 mg/dL * Correction Factor: 25 mg/dL/unit * Nutritional / Prandial insulin per carb ratio of 1 unit per 8 grams CHO consumed * Add overnight check since pt is experiencing both hyper and hypoglycemia * Please note that the plan above was derived based on current level of insulin resistance and hospital stress. These recommendations are appropriate for inpatient admission only. Plan of care upon discharge will need to be reassessed to avoid potential outpatient hypo/hyperglycemia. Thank you.
[2017-07-08 09:10] LABS: HEMOGLOBIN A1C 12.2 % (4.5-5.6)
--- NOTE | 2017-07-08 10:05 | NEPHROLOGY CONSULTATION ---
DATE OF CONSULTATION: 07/08/2017 ATTENDING OF RECORD: Fletcher Farfan MD. REASON FOR CONSULTATION: BARBARA. HISTORY OF PRESENT ILLNESS: This is a 81-year-old female with a history of type 2 diabetes as well as chronic kidney disease stage III, who follows in my outpatient clinic who felt her blood sugars were low and as she was moving to the kitchen to check her blood sugars, she passed out. She woke up around 3:00 in the morning and was unable to get up. Her was sleeping heavily and did not hear her in the kitchen, did not find her until 8:00 in the morning. The patient had been on the ground for close to 10 hours at that time. The patient comes in with a creatinine of 1.75. CK of 581, which is trending down to 303 and this morning her creatinine has improved to 1.49. The patient is comfortable sitting in her chair complaining of more painful legs that are tender to touch with some erythema at both sides. Urine culture was ordered and is pending. The patient is on D5 half normal at 100 mL an hour. The patient with diabetes since 2004, hypertension since 1989, hemoglobin A1c has been difficult to control. Does have a history of mitral valve repair in 2012. Has had lymphedema for over 10 years, has a baseline kidney function of 13, although it does vary a lot depending on dose of diuretics to help control the lymphedema. REVIEW OF SYSTEMS: Positive fatigue. Positive pain in legs. Positive lymphedema. Occasional chest pain with exertion. No shortness of breath. No cough. No change in weight. No swelling in the neck. Positive nocturia. No nausea or vomiting. No diarrhea or constipation. No seizure or tremors. No itching. All other review of systems otherwise negative. SOCIAL HISTORY: The patient is . No smoking, no alcohol, no drugs. Lives at home. FAMILY HISTORY: Significant for a brother with leukemia. Mother with MA. PAST MEDICAL HISTORY: CKD stage III, baseline creatinine of 1.3 and type 2 diabetes, difficult to control, hypertension, hypothyroidism, heart failure, mitral valve disease, history of pleural effusions requiring drainage in the past. PAST SURGICAL HISTORY: Mitral valve repair, cataract surgery, cholecystectomy, bypass to the heart, hysterectomy. CURRENT MEDICATIONS: Lantus at night, aspirin 81 mg a day, Claritin 10 mg daily, Protonix 40 mg daily, Zoloft 100 mg daily, Caltrate 1 tab daily, vitamin D 2000 units daily, Reglan as needed, Boost 1 can p.o. t.i.d., D5 half normal at 100 mL an hour, Synthroid 200 mcg daily, Coreg 25 mg p.o. b.i.d., Telma 180 mg at night, hydralazine 25 mg p.o. t.i.d., mag oxide 400 mg p.o. b.i.d., Zocor 10 mg at night, iron 325 p.o. b.i.d., sliding scale insulin. PHYSICAL EXAMINATION: VITAL SIGNS: Temperature 36.5, pulse 74, respiratory rate 20, blood pressure is 109/68, satting 99% on room air. GENERAL: Awake, alert, oriented x3. EYES: No scleral icterus. ENT: Moist mucous membranes. NECK: Supple. PULMONARY: Decreased breath sounds at bases. CARDIAC: Regular rate and rhythm. ABDOMEN: Bowel sounds positive, soft, nontender. EXTREMITIES: +1 pitting edema with some chronic venous stasis changes. NEUROLOGICALLY: Positive neuropathy. Ambulates with a cane/walker. DERMATOLOGIC: No rash or ulcers noted. LABORATORIES: Sodium level is 138, potassium 4.2, chloride is 101, bicarb is 32, BUN is 15, creatinine is 1.49, glucose 81. Hemoglobin A1c 12.2, calcium is 7.8. CK is 303. White count 8.5, H&H 10 and 32, platelet count is 239. INR is 1.2. UA shows large leukocyte esterase, greater than 30 WBCs. Urine culture is pending. Chest x-ray on admission shows cardiomegaly with no convincing evidence of acute cardiopulmonary disease. IMPRESSION AND PLAN: 1. Acute kidney injury on chronic kidney disease stage III with baseline creatinine of 1.3, although it tends to vary depending on the dose of diuretics, the patient's creatinine was 1.75, this morning is down to 1.49. Would consider stopping IV fluids tomorrow. 2. Elevated creatinine kinase. The patient technically does not have rhabdomyolysis, had a CK of 581 which is trending down to 303, not significant enough to cause acute kidney injury and/or rhabdomyolysis. I would not necessarily continue fluids just for the elevated CK, however, may benefit from another 24 hours of fluids to catcher helper in creatinine improving back down below 1.4. I would plan on stopping IV fluids tomorrow. We will discuss the case further with the hospitalist. Urinalysis was concerning for urinary tract infection. Urine culture is pending. Perhaps urinary tract infection may have been the precipitating factor for low blood sugars, although the patient's blood sugars have been difficult to control in the past with hemoglobin A1c in the 12s. So perhaps this may purely just be difficult to control diabetes with a blood sugar that drops causing her to pass out and land on the floor for an extended period of time and then presented with an element of volume depletion. I appreciate the consultation. MARSHA
--- NOTE | 2017-07-08 10:29 | Gastrointestinal Consultation ---
Gastrointestinal Consultation Date of Consultation: Jul 08, 2017 Attending Physician: Fletcher Farfan Consulting Physician: Lindsay Gonzales Reason for Consultation: Nausea, ? gastroparesis History of Present Illness Patient is a 81 year old female who presented to ED after a fall. She was feeling dizzy, felt that she had passed out and fell when she was just about to check her blood sugar. She reports she had lay on the ground for about 10 hours. Upon evaluation in ED, labs showed mild leukocytosis, WBC 13, H/H w mild anemia at her baseline , BSG 176. She has poorly controlled diabetes, last A1C earlier this year was 12. Noted BARBARA Cr 1.4 up from baseline 1.7. CK 500s. Head CT and CXR showed no acute processes. GI consulted for pt's complaint of nausea which had been present for "a long time". She reports that she has had taste changes, and since April her nausea was getting worse. No vomiting with the nausea. Denies any bloating, or early fullness. Was tried on Ondansetron 4mg q6hrs recently changed to q4hrs which she had only been taking for last 2 days and didn't notice much improvement on nausea. She had lost 30 lbs in last 1 yr due to poor appetite and intake. Currently supplementing with Boost at home. She denies any abd pain , or constipation, rectal bleeding. Had CT abd/pelvis w PO contrast only which showed asymmetrical cecal wall thickening ? ? malignancy. She had a colonoscopy on 06/10/17 which showed diverticulosis on ascending colon areas. She had a hx of choledocholithiasis and cholangitis (is s/p cholecystectomy) in 2003 requiring ERCP procedure. Her LFTs here are normal. Past Medical/Surgical History Medical Problems: (1) Abnormal laboratory test result Status: Acute (2) CHF exacerbation Status: Acute (3) Dehydration Status: Acute (4) Dehydration Status: Acute (5) Hyperglycemia Status: Acute (6) Hypoglycemia Status: Acute (7) Hypomagnesemia Status: Acute (8) Pedal edema Status: Acute (9) Pleural effusion, right Status: Acute (10) Rhabdomyolysis Status: Acute (11) Sepsis Status: Acute (12) UTI (urinary tract infection) Status: Acute (13) UTI (urinary tract infection) Status: Acute Past Medical History: PMHx of uncontrolled DM II, neuropathy, nephropathy, suspected gastroparesis, CAD, hx of mitral valve repair, CHD, recurrent pleural effusion s/p thoracentesis, HTN, hypothyroidism, CKD III, depression, dyslipidemia, GERD, osteoporosis. Past Surgical History: Cataract surgery Cholecystectomy Hysterectomy Mitral valve replacement Family History FH: heart disease MOTHER Hypertension Social History Smoking Status: Never Smoker Drug Use: none Marital Status: Housing Status: lives with significant other Occupation Status: retired Allergies Coded Allergies: No Known Allergies (Unverified , 07/07/17) Current Medications Home Meds and Scripts Medications Dose Route/Sig Max Daily Dose Days Date Category Zofran (Ondansetron HCl) 4 Mg Tab 4 Mg PO Q4H PRN 07/07/17 Reported Zoloft (Sertraline HCl) 100 Mg Tab 1 Tab PO DAILY 90 07/07/17 Reported Lantus (Insulin Glargine) 100 Unit/Ml Inj 10 SC QPM 06/10/17 Reported Claritin (Loratadine) 10 Mg Tab 10 Mg PO QAM 06/06/17 Reported Vitamin D3 (Cholecalciferol) 2,000 Unit Tab 1 Tab PO QAM 04/22/17 Reported Vitamin C (Ascorbic Acid) 500 Mg Tab 1 Tab PO QAM 04/22/17 Reported Aspirin Chewable (Aspirin) 81 Mg Chew 81 Mg PO QAM 04/22/17 Reported Atrovent 0.02% Soln (Ipratropium [place]) 2.5 Ml Nebu 1 Dose INH DIRECTED PRN 04/22/17 Reported Iron (Ferrous Sulfate) 325 Mg Tab 1 Tab PO BID 04/22/17 Reported Coreg (Carvedilol) 25 Mg Tab 25 Mg PO BID 04/22/17 Reported Levothyroxine Sodium 200 Mcg Tab 1 Tab PO QAM 90 04/22/17 Reported Zocor (Simvastatin) 10 Mg Tab 10 Mg PO QPM 04/22/17 Reported Apresoline (Hydralazine Hcl) 25 Mg Tab 25 Mg PO TID 04/22/17 Reported Demadex (Torsemide) 20 Mg Tab 20 Mg PO BID 04/22/17 Reported Ultram (Tramadol HCl) 50 Mg Tab 50 Mg PO Q8H PRN 04/22/17 Reported Novolog Flexpen (Insulin Aspart) 100 Units/Ml Inj 16 Units SC BID 04/22/17 Reported Mag-Ox (Magnesium Oxide) 400 Mg Tab 400 Mg PO BID 04/22/17 Reported Protonix (Pantoprazole Sodium) 40 Mg Tab 40 Mg PO QAM 04/22/17 Reported Review of Systems Constitutional: + see HPI, + weight loss, + weakness, No fever, No chills Respiratory: No cough, No shortness of breath Cardiac: No chest pain Abdomen: + nausea, No pain, No vomiting, No diarrhea, No constipation, No GI bleeding Physical Exam Date Time Temp Pulse Resp B/P (MAP) Pulse Ox O2 Delivery O2 Flow Rate FiO2 07/08/17 07:44 36.5 20 109/68 (82) 99 Room Air 07/08/17 04:00 Room Air 07/08/17 03:10 37.0 74 18 107/61 (76) 95 Room Air 07/08/17 00:00 Room Air 07/07/17 23:23 37.1 82 20 110/60 (77) 100 Room Air 07/07/17 21:35 92 106/61 (76) 07/07/17 20:00 Room Air 07/07/17 18:21 36.9 87 20 134/74 97 Room Air 07/07/17 17:17 92 14 120/55 97 Room Air 07/07/17 15:53 85 14 134/68 100 Room Air 07/07/17 14:34 83 16 118/52 100 Room Air 07/07/17 14:01 88 07/07/17 13:55 85 128/80 93 116/60 109/54 07/07/17 12:51 36.3 86 18 111/61 100 Room Air General Appearance: no apparent distress, + obese Eyes: normal inspection, PERRL, EOMI Neck: supple, no JVD, trachea midline Respiratory/Chest: normal breath sounds, no respiratory distress, no accessory muscle use Cardiovascular: regular rate, rhythm, no gallop, no murmur Abdomen: normal bowel sounds, non tender, soft Extremities: normal inspection, no pedal edema, no calf tenderness Neurologic/Psych: alert, normal mood/affect, oriented x 3 Skin: normal color, no jaundice, no rash Laboratory Results Last 24 Hours Test 07/07/17 13:01 07/07/17 13:49 07/07/17 15:01 07/07/17 18:38 Bedside Glucose 176 mg/dl White Blood Count 13.16 K/uL Red Blood Count 4.69 M/uL Hemoglobin 14.6 g/dL Hematocrit 43.4 % Mean Corpuscular Volume 92.5 fL Mean Corpuscular Hemoglobin 31.1 pg Mean Corpuscular Hemoglobin Concent 33.6 g/dl Platelet Count 274 K/uL Mean Platelet Volume 9.8 fL Neutrophils (%) (Auto) 88.5 % Lymphocytes (%) (Auto) 5.4 % Monocytes (%) (Auto) 5.4 % Eosinophils (%) (Auto) 0.0 % Basophils (%) (Auto) 0.2 % Neutrophils # (Auto) 11.66 K/uL Lymphocytes # (Auto) 0.71 K/uL Monocytes # (Auto) 0.71 K/uL Eosinophils # (Auto) 0.00 K/uL Basophils # (Auto) 0.02 K/uL RDW Standard Deviation 49.6 fL RDW Coefficient of Variation 14.7 % Immature Granulocyte % (Auto) 0.5 % Immature Granulocyte # (Auto) 0.06 K/uL Sodium Level 136 mmol/L Potassium Level mmol/L 4.8 mmol/L Chloride Level 98 mmol/L Carbon Dioxide Level 29 mmol/L Anion Gap 9.0 mmol/L Blood Urea Nitrogen 16 mg/dl Creatinine 1.75 mg/dl Est Creatinine Clear Calc Drug Dose 25.9 ml/min Estimated GFR () 31.5 Estimated GFR (Non- 27.2 BUN/Creatinine Ratio 9.4 Random Glucose 201 mg/dl Calcium Level 8.7 mg/dl Total Bilirubin 0.7 mg/dl Aspartate Amino Transf (AST/SGOT) U/L 55 U/L Alanine Aminotransferase (ALT/SGPT) 36 U/L Alkaline Phosphatase 89 U/L Total Creatine Kinase U/L 581 U/L Creatine Kinase MB 13.6 ng/ml Creatine Kinase MB Ratio Troponin I 0.030 ng/ml Total Protein 6.7 gm/dl Albumin 2.5 gm/dl Globulin 4.2 gm/dl Albumin/Globulin Ratio 0.6 Thyroid Stimulating Hormone (TSH) 0.354 uIu/ml Chemistry Specimen Hemolysis Prothrombin Time 13.0 SECONDS Prothromb Time International Ratio 1.2 Test 07/07/17 18:56 07/07/17 20:26 07/07/17 23:43 07/08/17 02:20 Bedside Glucose 208 mg/dl 262 mg/dl 75 mg/dl Urine Color YELLOW Urine Appearance CLOUDY Urine pH 6.5 Urine Specific [place] 1.015 Urine Protein NEG Urine Glucose (UA) NEG Urine Ketones NEG Urine Occult Blood NEG Urine Nitrite NEG Urine Bilirubin NEG Urine Urobilinogen NEG Urine Leukocyte Esterase LARGE Urine WBC (Auto) >30 /hpf Urine RBC (Auto) 0-4 /hpf Urine Hyaline Casts (Auto) 0 /lpf Urine Epithelial Cells (Auto) >30 /lpf Urine Bacteria (Auto) 1+ Test 07/08/17 04:15 07/08/17 05:20 Bedside Glucose 114 mg/dl White Blood Count 8.51 K/uL Red Blood Count 3.44 M/uL Hemoglobin 10.4 g/dL Hematocrit 32.0 % Mean Corpuscular Volume 93.0 fL Mean Corpuscular Hemoglobin 30.2 pg Mean Corpuscular Hemoglobin Concent 32.5 g/dl RDW Standard Deviation 50.4 fL RDW Coefficient of Variation 14.8 % Platelet Count 239 K/uL Mean Platelet Volume 9.5 fL Sodium Level 138 mmol/L Potassium Level 4.2 mmol/L Chloride Level 101 mmol/L Carbon Dioxide Level 32 mmol/L Anion Gap 5.0 mmol/L Blood Urea Nitrogen 15 mg/dl Creatinine 1.49 mg/dl Est Creatinine Clear Calc Drug Dose 30.3 ml/min Estimated GFR () 38.3 Estimated GFR (Non- 33.1 BUN/Creatinine Ratio 10.2 Random Glucose 81 mg/dl Estimated Average Glucose 303 mg/dl Hemoglobin A1c 12.2 % Calcium Level 7.8 mg/dl Total Creatine Kinase 303 U/L Impression Patient is a 81 year old female currently seen for chronic nausea w/o vomiting, weight loss (reported 30lbs in last year), taste changes. CT abd/pelvis w/ PO contrast last April (in [facility]), showed no acute processes/obstruction but pancreas noted to be markedly atrophied w pancreas duct dilated to 8mm. There was also an asymmetry of cecal wall thickening for which she had colonoscopy evaluation 06/10/17 w normal results. DDx: gastritis, PUD, Hpylori (hx of this in 2010), gastroparesis, chronic pancreatitis. She's never had gastric emptying study before nor EGD evaluation. She's a bit hesitant for EGD eval, wants to discuss with daughter but willing to have gastric emptying study. Plan - Ordered Lipase to add on to chem panel today - Gastric emptying study - Reglan 5mg PO q8hrs prn nausea/vomiting - Protonix 40mg daily - Check stool Hpylori (hx of this in 2010). - Ok to advance to [place], diabetic diet. - Will rediscuss with her about EGD eval at afternoon rounds. -> pt is agreeable to EGD eval, thus will make her NPO after midnight for EGD tomorrow I performed a history and physical examination of the patient, including specifically on physical exam - abdomen is soft.I have discussed the patient's management with Melba. Please refer to the FAMILY AND DIVORCE LEGAL ASSISTANT's note for the documented findings and plan of care. patient agrees for EGD tomorrow. Continue PPI and PRN antiemetics. EUS as outpatient for dilated PD on CT scan.
[2017-07-08 11:37] VITALS: BP 96/61; PULSE 78; TEMP 36.7; O2SAT 93
[2017-07-08 12:53] VITALS: BMI 32.9
[2017-07-08 16:11] VITALS: BP_SYST 104; BP_SYST 91; BP_SYST 99; BP_DIAS 54; BP_DIAS 57; BP_DIAS 59; PULSE 66; PULSE 67; PULSE 76; TEMP 36.7; O2SAT 100
[2017-07-08] MEDS: TRAMADOL HCL 50 MG TAB PO PRN ×2 (16:44→23:57)
[2017-07-08 16:57] VITALS: BMI 32.9
[2017-07-08 19:58] VITALS: BP 113/65; PULSE 80; TEMP 36.8; O2SAT 94
--- NOTE | 2017-07-08 20:37 | Progress Note ---
Medicine Progress Note Date & Time of Visit: Jul 08, 2017 at 18:20 . Subjective CC: Follow-up visit for multiple problems. HPI: Has no recollection how she ended up on floor at home. Was lying on floor for several hours before her found her. No episodes of syncope or lightheadedness since admission. No chest pain, palpitations, dyspnea. BP's relatively low at times. Blood sugars low this morning. ROS: General- no fever, no chills Resp- no cough; no shortness of breath Cardiac- as noted above in HPI GI- no nausea, no vomiting, no diarrhea, no constipation - no dysuria, no difficulty voiding . Objective Last 8 Hrs Date Time Temp Pulse Resp B/P (MAP) Pulse Ox O2 Delivery O2 Flow Rate FiO2 07/08/17 20:00 Room Air 07/08/17 19:58 36.8 80 18 113/65 (81) 94 Room Air 07/08/17 16:11 36.7 67 16 104/57 (73) 100 Room Air 66 99/59 (72) 76 91/54 (66) 07/08/17 16:00 Room Air Physical Exam: General- lying in bed; no distress Lungs- clear to auscultation; no respiratory distress Cardiovascular- RRR; II/ systolic murmur LSB; no diastolic murmur appreciated ; no gallop; no JVD; no pretibial edema Abdomen- + bowel sounds, soft, nontender Extremities- no cyanosis; no calf tenderness Neuro- alert, oriented Skin- warm & dry . Laboratory Results: Last 24 Hours Test 07/07/17 23:43 07/08/17 02:20 07/08/17 03:56 07/08/17 04:15 Bedside Glucose 75 mg/dl 25 mg/dl 114 mg/dl Urine Color YELLOW Urine Appearance CLOUDY Urine pH 6.5 Urine Specific [place] 1.015 Urine Protein NEG Urine Glucose (UA) NEG Urine Ketones NEG Urine Occult Blood NEG Urine Nitrite NEG Urine Bilirubin NEG Urine Urobilinogen NEG Urine Leukocyte Esterase LARGE Urine WBC (Auto) >30 /hpf Urine RBC (Auto) 0-4 /hpf Urine Hyaline Casts (Auto) 0 /lpf Urine Epithelial Cells (Auto) >30 /lpf Urine Bacteria (Auto) 1+ Test 07/08/17 05:20 07/08/17 07:29 07/08/17 07:50 07/08/17 08:04 White Blood Count 8.51 K/uL Red Blood Count 3.44 M/uL Hemoglobin 10.4 g/dL Hematocrit 32.0 % Mean Corpuscular Volume 93.0 fL Mean Corpuscular Hemoglobin 30.2 pg Mean Corpuscular Hemoglobin Concent 32.5 g/dl RDW Standard Deviation 50.4 fL RDW Coefficient of Variation 14.8 % Platelet Count 239 K/uL Mean Platelet Volume 9.5 fL Sodium Level 138 mmol/L Potassium Level 4.2 mmol/L Chloride Level 101 mmol/L Carbon Dioxide Level 32 mmol/L Anion Gap 5.0 mmol/L Blood Urea Nitrogen 15 mg/dl Creatinine 1.49 mg/dl Est Creatinine Clear Calc Drug Dose 30.3 ml/min Estimated GFR () 38.3 Estimated GFR (Non- 33.1 BUN/Creatinine Ratio 10.2 Random Glucose 81 mg/dl Estimated Average Glucose 303 mg/dl Hemoglobin A1c 12.2 % Calcium Level 7.8 mg/dl Total Creatine Kinase 303 U/L Lipase 26 U/L Bedside Glucose 52 mg/dl 53 mg/dl 65 mg/dl Test 07/08/17 11:08 07/08/17 16:41 Bedside Glucose 175 mg/dl 114 mg/dl Date/Time Source Procedure Growth Status 07/08/17 02:20 Urine , Random Urine Culture Pending Received Assessment & Plan SYNCOPE Etiology uncertain. Possibilities include hypoglycemia, orthostasis, arrhythmia. Specific problems discussed below. Continue to monitor for arrhythmias. CORONARY ARTERY DISEASE No anginal symptoms. CPK slightly elevated- probably from fall. Troponin negative. Continue aspirin, carvedilol, statin. CHRONIC LEFT VENTRICULAR DIASTOLIC HEART FAILURE Appears to be compensated. BP's relatively low / orthostatic. Follow and titrate diuretics. 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 Check f/u echo if not recently done. HYPERTENSION BP's relatively low. Orthostatic. Follow and titrate Rx. CKD III Serum creatinine at time of admission 1.75. Received IV fluids. Creatinine today = 1.49. Follow. DM TYPE 2 Not always well-controlled at home. Hgb A1C = 12.2. Possible hypoglycemia at home night of admission. Measured blood sugar at home reportedly 85. Random blood sugar upon arrival to ED was 176. Pharmacy consulted for glycemic management. Received Lantus 10 units last night. Blood sugar 03:56 this morning was 25. IV with 5% dextrose until hypoglycemia resolved. ABNORMAL UA No fever or dysuria. UA showed + leukocyte esterase, many WBC's, many epithelial cells, 1+ bacteria. May or may not have UTI. Urine culture pending. NAUSEA / WT LOSS Patient reports 30 lb weight loss associated with anorexia and nausea. May have gastroparesis or other pathology. GI consulted. EGD recommended and is tentatively planned for tomorrow. VTE PROPHYLAXIS SQ enoxaparin. Ambulate. DISPOSITION To be determined. Family Medicine follow-up with Dr. Adams. . . Current Inpatient Medications: Current Inpatient Medications Medications (Trade) Dose Ordered Sig/Ethel Route Start Time Stop Time Status Last Admin Dose Admin Enoxaparin Sodium (Lovenox Inj) 30 mg DAILY SQ 07/08/17 09:00 08/07/17 08:59 Acetaminophen (Tylenol Tab) 650 mg Q4H PRN PO 07/07/17 16:30 08/06/17 16:29 Al Hydrox/Mg Hydrox/Simethicone (Maalox Max Susp) 15 ml Q4H PRN PO 07/07/17 16:30 08/06/17 16:29 Magnesium Hydroxide (Milk Of Magnesia Susp) 30 ml Q12H PRN PO 07/07/17 16:30 08/06/17 16:29 Ondansetron HCl (Zofran Inj) 4 mg Q6H PRN IV 07/07/17 16:30 08/06/17 16:29 Glucose (Glucose 40% Gel) 15-30 GRAMS 15 GRAMS... UD PRN PO 07/07/17 16:30 08/06/17 16:29 07/08/17 07:36 30 GM Glucose (Glucose Chew Tab) 4-8 Tablets 4 Tabl... UD PRN PO 07/07/17 16:30 08/06/17 16:29 Dextrose (Dextrose 50% 50ML Syringe) 25-50ML OF 50% DW IV FOR... UD PRN IV 07/07/17 16:30 08/06/17 16:29 07/08/17 04:00 50 ML Glucagon (Glucagon Inj) 1 mg UD PRN SQ 07/07/17 16:30 08/06/17 16:29 Aspirin (Aspirin Chew) 81 mg QAM PO 07/08/17 09:00 08/07/17 08:59 07/08/17 07:38 81 MG Carvedilol (Coreg Tab) 25 mg BID PO 07/07/17 21:00 08/06/17 20:59 07/08/17 07:37 25 MG Fexofenadine HCl (Telma Tab) 180 mg HS PO 07/07/17 21:00 08/06/17 20:59 07/07/17 21:37 180 MG Hydralazine HCl (Apresoline Tab) 25 mg TID PO 07/07/17 21:00 08/06/17 20:59 07/08/17 07:38 25 MG Levothyroxine Sodium (Synthroid Tab) 200 mcg DAILYBB PO 07/08/17 06:30 08/07/17 06:59 07/08/17 06:13 200 MCG Loratadine (Claritin Tab) 10 mg QAM PO 07/08/17 09:00 08/07/17 08:59 07/08/17 07:37 10 MG Magnesium Oxide (Mag-Ox Tab) 400 mg BID PO 07/07/17 21:00 08/06/17 20:59 07/08/17 07:36 400 MG Pantoprazole Sodium (Protonix Tab) 40 mg QAM PO 07/08/17 09:00 08/07/17 08:59 07/08/17 07:39 40 MG Sertraline HCl (Zoloft Tab) 100 mg DAILY PO 07/08/17 09:00 08/07/17 08:59 07/08/17 07:38 100 MG Simvastatin (Zocor Tab) 10 mg QPM PO 07/07/17 21:00 08/06/17 20:59 07/07/17 21:38 10 MG Tramadol HCl (Ultram Tab) 50 mg Q8H PRN PO 07/07/17 16:30 08/06/17 16:29 07/08/17 16:44 50 MG Calcium/Vitamin D (Caltrate Plus Tab) 1 tab DAILY PO 07/08/17 09:00 08/07/17 08:59 07/08/17 07:39 1 TAB Cholecalciferol (Vitamin D Tab) 2,000 inter.unit DAILY PO 07/08/17 09:00 08/07/17 08:59 07/08/17 07:37 2,000 INTER.UNIT Ferrous Sulfate (Feosol Tab) 325 mg BIDM PO 07/07/17 18:00 08/06/17 17:59 07/08/17 16:41 325 MG Insulin Aspart (novoLOG ASPART) SLIDING SCALE If C... ACHS SC 07/07/17 18:00 08/06/17 17:59 07/08/17 17:33 13 UNITS Miscellaneous Information (Consult Glycemic Management Pharmacy) 1 ea UD PRN N/A 07/07/17 16:45 08/06/17 16:44 Metoclopramide HCl (Reglan Tab) 5 mg Q8 PRN PO 07/08/17 09:00 08/06/17 17:44 07/08/17 16:42 5 MG Insulin Glargine (Lantus Solostar Pen) SEE PROTOCOL HS SC 07/08/17 21:00 08/07/17 20:59 Insulin Aspart (novoLOG ASPART) SLIDING SCALE If C... 0200 SC 07/09/17 02:00 07/09/17 02:01 Enteral Nutritional Formula (Boost Glucose Control) 1 can TODAY@1000,2100 PO 07/08/17 21:00 08/07/17 20:59
[2017-07-08] MEDS: INSULIN GLARGINE SOLOSTAR 100 UNITS/ML 3 ML PEN SC SCH (21:00)
[2017-07-08] MEDS ORDERED: BOOST VANILLA PO SCH (21:00)
[2017-07-08] MEDS: BOOST GLUCOSE CONTROL PO SCH (21:06)
[2017-07-08] MEDS: FEXOFENADINE HCL 180 MG TAB PO SCH (21:07)
[2017-07-08] MEDS: SIMVASTATIN 10 MG TAB PO SCH (22:33)
[2017-07-08] MEDS ORDERED: SODIUM CHLORIDE 0.9% 500ML 500 ML IV SCH (23:45)
[2017-07-08 23:55] VITALS: BP_SYST 84; BP_SYST 86; BP_SYST 88; BP_DIAS 49; BP_DIAS 52; BP_DIAS 64; PULSE 68; TEMP 36.6; O2SAT 98
[2017-07-09] VITALS (8 sets, daily range): BP systolic 109–138; BP diastolic 66–76; PULSE 65–74; TEMP 36.2–36.7; O2SAT 97–100; BMI 33.7
[2017-07-09] MEDS ORDERED: D5W AND 1/2NSS + 20MEQ KCL 1,000 ML IV SCH (01:45)
[2017-07-09] MEDS ORDERED: INSULIN ASPART 100 UNITS/ML 3 ML PEN SC SCH (02:00)
[2017-07-09] MEDS: LEVOTHYROXINE 200 MCG TAB PO SCH (05:49)
[2017-07-09 06:58] LABS: HEMATOCRIT 31.9 % (37-47); HEMOGLOBIN 10.3 g/dL (12.0-16.0); MEAN CELL VOLUME 94.7 fL (80-100); MEAN CORPUSCULAR HEMOGLOBIN 30.6 pg (25-34); MEAN CORPUSCULAR HGB CONC 32.3 g/dl (32-36); MEAN PLATELET VOLUME 9.8 fL (7.4-10.4); PLATELET COUNT 216 K/uL (130-400); RED CELL DISTRIBUTION WIDTH CV 14.7 % (11.5-14.5); RED CELL DISTRIBUTION WIDTH SD 49.7 fL (36.4-46.3); WHITE BLOOD COUNT 6.06 K/uL (4.8-10.8)
[2017-07-09 07:31] LABS: CALCIUM 7.3 mg/dl (8.5-10.1); CREATININE 1.23 mg/dl (0.60-1.20); POTASSIUM 4.5 mmol/L (3.5-5.1)
[2017-07-09] MEDS ORDERED: HYDROmorphone INJ 0.5 MG/0.5 ML SYR IV ONE (07:45)
[2017-07-09] MEDS: FERROUS SULFATE 325 MG TAB PO SCH ×2 (08:00→17:32)
[2017-07-09] MEDS: INSULIN ASPART 100 UNITS/ML 3 ML PEN SC SCH ×4 (08:00→21:30)
[2017-07-09] MEDS: SERTRALINE HCL 100 MG TAB PO SCH ×2 (09:00→15:38)
[2017-07-09] MEDS: CARVEDILOL 25 MG TAB PO SCH ×2 (09:00→21:25)
[2017-07-09] MEDS: PANTOprazole SOD 40 MG TAB PO SCH ×2 (09:00→15:10)
[2017-07-09] MEDS: CALCIUM 600MG + VIT D 400 IU TAB PO SCH (09:00)
[2017-07-09] MEDS: CHOLECALCIFEROL 1000 INTER.UNIT TAB PO SCH ×2 (09:00→15:10)
[2017-07-09] MEDS: ASPIRIN 81 MG CHEW PO SCH (09:00)
[2017-07-09] MEDS: ENOXAPARIN 30 MG/0.3 ML SYR SQ SCH ×2 (09:00→15:13)
[2017-07-09] MEDS: LORATADINE 10 MG TAB PO SCH (09:00)
[2017-07-09] MEDS: MAGNESIUM OXIDE 400 MG TAB PO SCH ×3 (09:00→21:26)
--- NOTE | 2017-07-09 09:08 | Pharmacy Progress Note ---
Glycemic Control Progress Note Date of Service Jul 09, 2017. Scope Glycemic Pharmacist consulted for glycemic control to write orders per [facility] inpatient glycemic control protocol. Objective Accuchecks BSG (last 24hrs): Test 07/08/17 11:08 07/08/17 16:41 07/08/17 20:26 07/09/17 00:43 Bedside Glucose 175 mg/dl (70-90) 114 mg/dl (70-90) 109 mg/dl (70-90) 82 mg/dl (70-90) Test 07/09/17 02:16 07/09/17 06:01 07/09/17 06:09 07/09/17 07:23 Bedside Glucose 107 mg/dl (70-90) 136 mg/dl (70-90) 175 mg/dl (70-90) Random Glucose 135 mg/dl (70-99) HbA1c: Test 07/08/17 05:20 Hemoglobin A1c 12.2 % (4.5-5.6) H Recent Pertinent Medications The patient is currently receiving: * Basal insulin: none (last dose was 14 units 2/4 pm) * Correctional Insulin: Novolog Correction per scale ACHS Goal Range: Low 120 mg/dL - High 160 mg/dL Correction Factor: 25 mg/dL/unit * Prandial insulin: Per carb ratio of 1 unit per 8 grams CHO consumed Outpatient Anti-Diabetic Meds Lantus 10 units SQ HS NovoLog 16 units SQ TIDM *NOTE - patient is non-compliant with insulin; she informed the Human Resources Executive that she had not been checking her BSG or taking insulin for several weeks Assessment & Plan ASSESSMENT: * See progress note from 07/07/17 for more background info, in short: * Pt receiving SQ basal bolus insulin regimen for hyperglycemia secondary to baseline DM (outpatient regimen on hold). Patient reports worsening diabetic gastroparesis with 30 lb weight loss over the past year. She has been experiencing hypoglycemia at home. Very poor outpatient control, A1c 12.2%. * Patient received 20 units of insulin over the past 24 hours: * No basal insulin * 20 units of bolus insulin * BSGs: 65 (fasting), 175, 114, 109, 136 (fasting) * Changes needed to insulin regimen: * AM Fasting BSG = 138 mg/dl. This is improved and near goal for patient based on inpatient targets and co-morbidities. Patient is NPO for EGD today. Will not make changes to basal insulin until evidence of oral intake. * Post-prandial BSGs are at goal and trending down throughout the day, therefore will loosen current CF/CR. PLAN FOR INPATIENT GLYCEMIC CONTROL: * Basal insulin * Lantus SQ HS * 0 units for BSG less than 110 mg/dL * 4 units for BSG 110-180 mg/dL * 8 units for BSG greater than 180 mg/dL * Bolus insulin * NovoLog per scale ACHS or Q6hrs while NPO * Goal Range: Low 120 mg/dL - High 160 mg/dL * Correction Factor: 30 mg/dL/unit * Nutritional / Prandial insulin per carb ratio of 1 unit per 10 grams CHO consumed * Please note that the plan above was derived based on current level of insulin resistance and hospital stress. These recommendations are appropriate for inpatient admission only. Plan of care upon discharge will need to be reassessed to avoid potential outpatient hypo/hyperglycemia. Thank you.
[2017-07-09] MEDS: BOOST GLUCOSE CONTROL PO SCH ×2 (10:00→21:25)
--- NOTE | 2017-07-09 10:22 | Nephrology Progress Note ---
Nephrology Progress Note Date of Service: Jul 09, 2017. Subjective 81 yo female with barbara on ckd in setting of uncontrolled diabetes and has been complaining of weight loss and chronic nausea and currently npo for EGD today. creatinine back to baseline this morning and iv fluids were stopped. pt comfortable. continues to have underlying anxiety which is chronic and chronic pain in her legs. Objective Date Time Temp Pulse Resp B/P (MAP) Pulse Ox O2 Delivery O2 Flow Rate FiO2 07/09/17 08:00 99 Room Air 07/09/17 07:45 Room Air 07/09/17 07:45 36.4 65 18 138/76 (96) 99 Room Air 07/09/17 04:00 36.6 72 16 127/69 (88) 98 Room Air 07/09/17 04:00 Room Air 07/09/17 00:00 Room Air 07/08/17 23:55 36.6 68 16 88/64 (72) 98 Room Air 84/52 (63) 86/49 (61) 07/08/17 20:00 Room Air 07/08/17 19:58 36.8 80 18 113/65 (81) 94 Room Air 07/08/17 16:11 36.7 67 16 104/57 (73) 100 Room Air 66 99/59 (72) 76 91/54 (66) 07/08/17 16:00 Room Air 07/08/17 12:00 Room Air 07/08/17 11:37 36.7 78 20 96/61 (73) 93 Room Air Physical Exam: General-aaox3, obese Eyes-no scleral icterus ENT-mmm Neck-supple Lungs-slight end expiratory wheeze Heart-rrr Abdomen-bs+ s/nt/nd Extremities-+1 edema Neuro-nonfocal Current Inpatient Medications Medications (Trade) Dose Ordered Sig/Ethel Route Start Time Stop Time Status Last Admin Dose Admin Enoxaparin Sodium (Lovenox Inj) 30 mg DAILY SQ 07/08/17 09:00 08/07/17 08:59 Acetaminophen (Tylenol Tab) 650 mg Q4H PRN PO 07/07/17 16:30 08/06/17 16:29 Al Hydrox/Mg Hydrox/Simethicone (Maalox Max Susp) 15 ml Q4H PRN PO 07/07/17 16:30 08/06/17 16:29 Magnesium Hydroxide (Milk Of Magnesia Susp) 30 ml Q12H PRN PO 07/07/17 16:30 08/06/17 16:29 Ondansetron HCl (Zofran Inj) 4 mg Q6H PRN IV 07/07/17 16:30 08/06/17 16:29 Glucose (Glucose 40% Gel) 15-30 GRAMS 15 GRAMS... UD PRN PO 07/07/17 16:30 08/06/17 16:29 07/08/17 07:36 30 GM Glucose (Glucose Chew Tab) 4-8 Tablets 4 Tabl... UD PRN PO 07/07/17 16:30 08/06/17 16:29 Dextrose (Dextrose 50% 50ML Syringe) 25-50ML OF 50% DW IV FOR... UD PRN IV 07/07/17 16:30 08/06/17 16:29 07/08/17 04:00 50 ML Glucagon (Glucagon Inj) 1 mg UD PRN SQ 07/07/17 16:30 08/06/17 16:29 Aspirin (Aspirin Chew) 81 mg QAM PO 07/08/17 09:00 08/07/17 08:59 07/08/17 07:38 81 MG Carvedilol (Coreg Tab) 25 mg BID PO 07/07/17 21:00 08/06/17 20:59 07/08/17 21:07 25 MG Fexofenadine HCl (Telma Tab) 180 mg HS PO 07/07/17 21:00 08/06/17 20:59 07/08/17 21:07 180 MG Hydralazine HCl (Apresoline Tab) 25 mg TID PO 07/07/17 21:00 08/06/17 20:59 07/08/17 21:06 25 MG Levothyroxine Sodium (Synthroid Tab) 200 mcg DAILYBB PO 07/08/17 06:30 08/07/17 06:59 07/08/17 06:13 200 MCG Loratadine (Claritin Tab) 10 mg QAM PO 07/08/17 09:00 08/07/17 08:59 07/08/17 07:37 10 MG Magnesium Oxide (Mag-Ox Tab) 400 mg BID PO 07/07/17 21:00 08/06/17 20:59 07/08/17 21:07 400 MG Pantoprazole Sodium (Protonix Tab) 40 mg QAM PO 07/08/17 09:00 08/07/17 08:59 07/08/17 07:39 40 MG Sertraline HCl (Zoloft Tab) 100 mg DAILY PO 07/08/17 09:00 08/07/17 08:59 07/08/17 07:38 100 MG Simvastatin (Zocor Tab) 10 mg QPM PO 07/07/17 21:00 08/06/17 20:59 07/08/17 22:33 10 MG Tramadol HCl (Ultram Tab) 50 mg Q8H PRN PO 07/07/17 16:30 08/06/17 16:29 07/08/17 23:57 50 MG Calcium/Vitamin D (Caltrate Plus Tab) 1 tab DAILY PO 07/08/17 09:00 08/07/17 08:59 07/08/17 07:39 1 TAB Cholecalciferol (Vitamin D Tab) 2,000 inter.unit DAILY PO 07/08/17 09:00 08/07/17 08:59 07/08/17 07:37 2,000 INTER.UNIT Ferrous Sulfate (Feosol Tab) 325 mg BIDM PO 07/07/17 18:00 08/06/17 17:59 07/08/17 16:41 325 MG Insulin Aspart (novoLOG ASPART) SLIDING SCALE If C... ACHS SC 07/07/17 18:00 08/06/17 17:59 07/08/17 17:33 13 UNITS Miscellaneous Information (Consult Glycemic Management Pharmacy) 1 ea UD PRN N/A 07/07/17 16:45 08/06/17 16:44 Metoclopramide HCl (Reglan Tab) 5 mg Q8 PRN PO 07/08/17 09:00 08/06/17 17:44 07/08/17 16:42 5 MG Insulin Glargine (Lantus Solostar Pen) SEE PROTOCOL HS SC 07/08/17 21:00 08/07/17 20:59 Enteral Nutritional Formula (Boost Glucose Control) 1 can TODAY@1000,2100 PO 07/08/17 21:00 08/07/17 20:59 07/08/17 21:06 1 CAN Last 24 Hours Test 07/08/17 11:08 07/08/17 16:41 07/08/17 20:26 07/09/17 00:43 Bedside Glucose 175 mg/dl 114 mg/dl 109 mg/dl 82 mg/dl Test 07/09/17 02:16 07/09/17 06:01 07/09/17 06:09 07/09/17 07:23 Bedside Glucose 107 mg/dl 136 mg/dl 175 mg/dl White Blood Count 6.06 K/uL Red Blood Count 3.37 M/uL Hemoglobin 10.3 g/dL Hematocrit 31.9 % Mean Corpuscular Volume 94.7 fL Mean Corpuscular Hemoglobin 30.6 pg Mean Corpuscular Hemoglobin Concent 32.3 g/dl RDW Standard Deviation 49.7 fL RDW Coefficient of Variation 14.7 % Platelet Count 216 K/uL Mean Platelet Volume 9.8 fL Sodium Level 140 mmol/L Potassium Level 4.5 mmol/L Chloride Level 104 mmol/L Carbon Dioxide Level 31 mmol/L Anion Gap 5.0 mmol/L Blood Urea Nitrogen 12 mg/dl Creatinine 1.23 mg/dl Est Creatinine Clear Calc Drug Dose 37.2 ml/min Estimated GFR () 48.3 Estimated GFR (Non- 41.7 BUN/Creatinine Ratio 9.6 Random Glucose 135 mg/dl Calcium Level 7.3 mg/dl Assessment & Plan BARBARA which improved with iv fluids back to baseline. stopped iv fluids this morning. pt oxygenating well and no sob but noted to have slight end expiratory wheeze. hopefully improves as pt continues to urinate. technically no rhabdo. labs stable. no changes. calcium was dropping however when correcting for albumin, is normal.
[2017-07-09] MEDS ORDERED: PROPOFOL IV EMULSION 10 MG/ML 20 ML VIAL IV ONE ×2 (13:36→13:53)
[2017-07-09] MEDS ORDERED: LIDOCAINE HCL 2% 2 ML VIAL (20MG/ML) ONE ×2 (13:36→13:53)
[2017-07-09] MEDS ORDERED: FENTANYL CITRATE INJ 50 MCG/1 ML 2 ML VIAL ONE (13:37)
--- NOTE | 2017-07-09 13:48 | Anesthesiology Progress Note ---
Anesthesia Post Op Note Date & Time Jul 09, 2017 at 13:47 Vital Signs Pain Intensity: 6.5 Vital Signs Past 12 Hours Date Time Temp Pulse Resp B/P (MAP) Pulse Ox O2 Delivery O2 Flow Rate FiO2 07/09/17 11:42 37.1 67 20 154/61 (92) 100 Room Air 07/09/17 11:21 36.2 65 16 114/67 (83) 97 Room Air 07/09/17 08:00 99 Room Air 07/09/17 07:45 Room Air 07/09/17 07:45 36.4 65 18 138/76 (96) 99 Room Air 07/09/17 04:00 36.6 72 16 127/69 (88) 98 Room Air 07/09/17 04:00 Room Air Notes Mental Status: alert / awake / arousable, participated in evaluation Pt Amnestic to Procedure: Yes Nausea / Vomiting: adequately controlled Pain: adequately controlled Airway Patency, RR, SpO2: stable & adequate BP & HR: stable & adequate Hydration State: stable & adequate Anesthetic Complications: no major complications apparent
--- NOTE | 2017-07-09 14:01 | GI REPORT ---
Procedure Date: 07/09/2017 1:53 PM Procedure: Upper GI endoscopy Indications: Nausea Medicines: Monitored Anesthesia Care Complications: No immediate complications. Estimated Blood Loss: Estimated blood loss: none. Procedure: Pre-Anesthesia Assessment: - Prior to the procedure, a History and Physical was performed, and patient medications and allergies were reviewed. The patient is competent. The risks and benefits of the procedure and the sedation options and risks were discussed with the patient. All questions were answered and informed consent was obtained. Patient identification and proposed procedure were verified by the physician and the nurse in the procedure room. Mental Status Examination: alert and oriented. Airway Examination: normal oropharyngeal airway and neck mobility. Respiratory Examination: clear to auscultation. CV Examination: normal. ASA Grade Assessment: III - A patient with severe systemic disease. After reviewing the risks and benefits, the patient was deemed in satisfactory condition to undergo the procedure. The anesthesia plan was to use monitored anesthesia care (MAC). Immediately prior to administration of medications, the patient was re-assessed for adequacy to receive sedatives. The heart rate, respiratory rate, oxygen saturations, blood pressure, adequacy of pulmonary ventilation, and response to care were monitored throughout the procedure. The physical status of the patient was re-assessed after the procedure. After obtaining informed consent, the endoscope was passed under direct vision. Throughout the procedure, the patient's blood pressure, pulse, and oxygen saturations were monitored continuously. The Scope was introduced through the mouth, and advanced to the second part of duodenum. The upper GI endoscopy was accomplished without difficulty. The patient tolerated the procedure well. Findings: The examined esophagus was normal. Mild inflammation characterized by erythema and granularity was found in the gastric body. Biopsies were taken with a cold forceps for histology. Biopsies were taken with a cold forceps for Helicobacter pylori testing. Verification of patient identification for the specimen was done by the physician and nurse using the patient's name and date. The duodenal bulb and second portion of the duodenum were normal. Biopsies were taken with a cold forceps for histology. Impression: - Normal esophagus. - Gastritis. Biopsied. - Normal duodenal bulb and second portion of the duodenum. Biopsied. Recommendation: - Return patient to [facility] for ongoing care. - Await pathology results. Lindsay Gonzales MD 07/09/2017 2:01:13 PM This report has been signed electronically. Note Initiated On: 07/09/2017 1:53 PM I attest to the content of the Intraoperative Record and orders documented therein, exceptions below
[2017-07-09] MEDS: CEFTRIAXONE SOD INJ 1 GM in DEXTROSE 5% ADD-VANTAGE 50ML 50 ML IV SCH (15:39)
[2017-07-09] MEDS: TRAMADOL HCL 50 MG TAB PO PRN (16:50)
--- NOTE | 2017-07-09 20:32 | Progress Note ---
Medicine Progress Note Date & Time of Visit: Jul 09, 2017 at ~ 19:00 . Subjective CC: Follow-up visit for multiple problems. HPI: EGD went well today. No episodes of syncope or lightheadedness since admission. No chest pain, palpitations, dyspnea. Blood sugars better. Daughter visiting. ROS: General- no fever, no chills Resp- no cough; no shortness of breath Cardiac- as noted above in HPI GI- no nausea, no vomiting, no diarrhea, no constipation - no dysuria, no difficulty voiding . Objective Last 8 Hrs Date Time Temp Pulse Resp B/P (MAP) Pulse Ox O2 Delivery O2 Flow Rate FiO2 07/09/17 16:11 36.7 74 16 109/66 (80) 100 Room Air 07/09/17 16:00 Room Air 07/09/17 14:45 36.7 72 16 132/73 (92) 98 Room Air 07/09/17 14:19 71 18 130/48 (75) 97 Room Air 07/09/17 14:04 67 18 119/50 (73) 97 Room Air 07/09/17 13:49 72 18 110/46 (67) 97 Room Air Physical Exam: General- lying in bed; no distress Lungs- clear to auscultation; no respiratory distress Cardiovascular- RRR; II/ systolic murmur LSB; no diastolic murmur appreciated ; no gallop; no JVD; no pretibial edema Abdomen- + bowel sounds, soft, nontender Extremities- no cyanosis; no calf tenderness Neuro- alert, oriented Skin- warm & dry . Laboratory Results: Last 24 Hours Test 07/09/17 00:08 07/09/17 00:23 07/09/17 00:43 07/09/17 02:16 Bedside Glucose 56 mg/dl 59 mg/dl 82 mg/dl 107 mg/dl Test 07/09/17 06:01 07/09/17 06:09 07/09/17 07:23 07/09/17 11:15 Bedside Glucose 136 mg/dl 175 mg/dl 128 mg/dl White Blood Count 6.06 K/uL Red Blood Count 3.37 M/uL Hemoglobin 10.3 g/dL Hematocrit 31.9 % Mean Corpuscular Volume 94.7 fL Mean Corpuscular Hemoglobin 30.6 pg Mean Corpuscular Hemoglobin Concent 32.3 g/dl RDW Standard Deviation 49.7 fL RDW Coefficient of Variation 14.7 % Platelet Count 216 K/uL Mean Platelet Volume 9.8 fL Sodium Level 140 mmol/L Potassium Level 4.5 mmol/L Chloride Level 104 mmol/L Carbon Dioxide Level 31 mmol/L Anion Gap 5.0 mmol/L Blood Urea Nitrogen 12 mg/dl Creatinine 1.23 mg/dl Est Creatinine Clear Calc Drug Dose 37.2 ml/min Estimated GFR () 48.3 Estimated GFR (Non- 41.7 BUN/Creatinine Ratio 9.6 Random Glucose 135 mg/dl Calcium Level 7.3 mg/dl Test 07/09/17 15:06 07/09/17 20:16 Bedside Glucose 119 mg/dl 185 mg/dl Assessment & Plan SYNCOPE Etiology uncertain. Possibilities include hypoglycemia, orthostasis, arrhythmia. Specific problems discussed below. Continue to monitor for arrhythmias. CORONARY ARTERY DISEASE No anginal symptoms. CPK slightly elevated- probably from fall. Troponin negative. Continue aspirin, carvedilol, statin. CHRONIC LEFT VENTRICULAR DIASTOLIC HEART FAILURE Appears to be compensated. BP's relatively low / orthostatic. Holding torsemide. Follow and titrate diuretics. 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 Check f/u echo if not recently done. HYPERTENSION BP's relatively low. Orthostatic. Follow and titrate Rx. CKD III / CUTE KIDNEY INJURY Serum creatinine at time of admission 1.75. Received IV fluids. Creatinine today = 1.23. Follow. DM TYPE 2 Not always well-controlled at home. Hgb A1C = 12.2. Possible hypoglycemia at home night of admission. Measured blood sugar at home reportedly 85. Random blood sugar upon arrival to ED was 176. Pharmacy consulted for glycemic management. Received Lantus 10 units last night. Blood sugar 03:56 07/08 was 25. Received IV with 5% dextrose until hypoglycemia resolved. Follow and titrate Rx. ABNORMAL UA No fever or dysuria. UA showed + leukocyte esterase, many WBC's, many epithelial cells, 1+ bacteria. May or may not have UTI. Urine culture growing gram negative bacilli. IV ceftriaxone pending final culture report. NAUSEA / WT LOSS Patient reports 30 lb weight loss associated with anorexia and nausea. May have gastroparesis or other pathology. GI consulted. EGD today only showed gastritis. Check gastric emptying scan. VTE PROPHYLAXIS SQ enoxaparin. Ambulate. DISPOSITION To be determined. Family Medicine follow-up with Dr. Adams. . . Current Inpatient Medications: Current Inpatient Medications Medications (Trade) Dose Ordered Sig/Ethel Route Start Time Stop Time Status Last Admin Dose Admin Enoxaparin Sodium (Lovenox Inj) 30 mg DAILY SQ 07/08/17 09:00 08/07/17 08:59 07/09/17 15:13 30 MG Acetaminophen (Tylenol Tab) 650 mg Q4H PRN PO 07/07/17 16:30 08/06/17 16:29 Al Hydrox/Mg Hydrox/Simethicone (Maalox Max Susp) 15 ml Q4H PRN PO 07/07/17 16:30 08/06/17 16:29 Magnesium Hydroxide (Milk Of Magnesia Susp) 30 ml Q12H PRN PO 07/07/17 16:30 08/06/17 16:29 Ondansetron HCl (Zofran Inj) 4 mg Q6H PRN IV 07/07/17 16:30 08/06/17 16:29 Glucose (Glucose 40% Gel) 15-30 GRAMS 15 GRAMS... UD PRN PO 07/07/17 16:30 08/06/17 16:29 07/08/17 07:36 30 GM Glucose (Glucose Chew Tab) 4-8 Tablets 4 Tabl... UD PRN PO 07/07/17 16:30 08/06/17 16:29 Dextrose (Dextrose 50% 50ML Syringe) 25-50ML OF 50% DW IV FOR... UD PRN IV 07/07/17 16:30 08/06/17 16:29 07/08/17 04:00 50 ML Glucagon (Glucagon Inj) 1 mg UD PRN SQ 07/07/17 16:30 08/06/17 16:29 Aspirin (Aspirin Chew) 81 mg QAM PO 07/08/17 09:00 08/07/17 08:59 07/08/17 07:38 81 MG Carvedilol (Coreg Tab) 25 mg BID PO 07/07/17 21:00 08/06/17 20:59 07/08/17 21:07 25 MG Fexofenadine HCl (Telma Tab) 180 mg HS PO 07/07/17 21:00 08/06/17 20:59 07/08/17 21:07 180 MG Hydralazine HCl (Apresoline Tab) 25 mg TID PO 07/07/17 21:00 08/06/17 20:59 07/09/17 15:38 25 MG Levothyroxine Sodium (Synthroid Tab) 200 mcg DAILYBB PO 07/08/17 06:30 08/07/17 06:59 07/08/17 06:13 200 MCG Loratadine (Claritin Tab) 10 mg QAM PO 07/08/17 09:00 08/07/17 08:59 07/08/17 07:37 10 MG Magnesium Oxide (Mag-Ox Tab) 400 mg BID PO 07/07/17 21:00 08/06/17 20:59 07/09/17 15:10 400 MG Pantoprazole Sodium (Protonix Tab) 40 mg QAM PO 07/08/17 09:00 08/07/17 08:59 07/09/17 15:10 40 MG Sertraline HCl (Zoloft Tab) 100 mg DAILY PO 07/08/17 09:00 08/07/17 08:59 07/09/17 15:38 100 MG Simvastatin (Zocor Tab) 10 mg QPM PO 07/07/17 21:00 08/06/17 20:59 07/08/17 22:33 10 MG Tramadol HCl (Ultram Tab) 50 mg Q8H PRN PO 07/07/17 16:30 08/06/17 16:29 07/09/17 16:50 50 MG Calcium/Vitamin D (Caltrate Plus Tab) 1 tab DAILY PO 07/08/17 09:00 08/07/17 08:59 07/08/17 07:39 1 TAB Cholecalciferol (Vitamin D Tab) 2,000 inter.unit DAILY PO 07/08/17 09:00 08/07/17 08:59 07/09/17 15:10 2,000 INTER.UNIT Ferrous Sulfate (Feosol Tab) 325 mg BIDM PO 07/07/17 18:00 08/06/17 17:59 07/09/17 17:32 325 MG Insulin Aspart (novoLOG ASPART) SLIDING SCALE If C... ACHS SC 07/07/17 18:00 08/06/17 17:59 07/09/17 17:47 11 UNITS Miscellaneous Information (Consult Glycemic Management Pharmacy) 1 ea UD PRN N/A 07/07/17 16:45 08/06/17 16:44 Metoclopramide HCl (Reglan Tab) 5 mg Q8 PRN PO 07/08/17 09:00 08/06/17 17:44 Future Hold 07/08/17 16:42 5 MG Insulin Glargine (Lantus Solostar Pen) SEE PROTOCOL HS SC 07/08/17 21:00 08/07/17 20:59 Enteral Nutritional Formula (Boost Glucose Control) 1 can TODAY@1000,2100 PO 07/08/17 21:00 08/07/17 20:59 07/08/17 21:06 1 CAN Ceftriaxone Sodium 1 gm/ Dextrose 50 ml @ 100 mls/hr Q24H IV 07/09/17 15:00 07/14/17 14:59 07/09/17 15:39 100 MLS/HR
[2017-07-09] MEDS: FEXOFENADINE HCL 180 MG TAB PO SCH (21:25)
[2017-07-09] MEDS: SIMVASTATIN 10 MG TAB PO SCH (21:25)
[2017-07-09] MEDS: INSULIN GLARGINE SOLOSTAR 100 UNITS/ML 3 ML PEN SC SCH (21:27)
[2017-07-10] VITALS (9 sets, daily range): BP systolic 101–145; BP diastolic 63–80; PULSE 64–79; TEMP 36.5–36.6; O2SAT 94–99; BMI 33.6
[2017-07-10] MEDS: DEXTROSE 50% 50 ML SYR IV PRN (03:27)
[2017-07-10] MEDS: D5W AND 1/2NSS 1,000 ML IV SCH ×2 (03:49→13:35)
[2017-07-10] MEDS: LEVOTHYROXINE 200 MCG TAB PO SCH (06:27)
[2017-07-10] MEDS: FERROUS SULFATE 325 MG TAB PO SCH (08:00)
[2017-07-10] MEDS: INSULIN ASPART 100 UNITS/ML 3 ML PEN SC SCH ×4 (08:00→21:00)
[2017-07-10] MEDS: CALCIUM 600MG + VIT D 400 IU TAB PO SCH (08:26)
[2017-07-10] MEDS: ASPIRIN 81 MG CHEW PO SCH ×2 (08:26→14:18)
[2017-07-10] MEDS: MAGNESIUM OXIDE 400 MG TAB PO SCH ×3 (08:26→21:04)
[2017-07-10] MEDS: CARVEDILOL 25 MG TAB PO SCH ×3 (08:26→21:04)
[2017-07-10] MEDS: LORATADINE 10 MG TAB PO SCH ×2 (08:26→14:07)
[2017-07-10] MEDS: PANTOprazole SOD 40 MG TAB PO SCH ×2 (08:26→14:07)
[2017-07-10] MEDS: CHOLECALCIFEROL 1000 INTER.UNIT TAB PO SCH ×2 (08:27→14:07)
[2017-07-10] MEDS: ENOXAPARIN 30 MG/0.3 ML SYR SQ SCH ×2 (08:27→14:08)
[2017-07-10] MEDS: SERTRALINE HCL 100 MG TAB PO SCH (08:28)
[2017-07-10] MEDS: SERTRALINE HCL 50 MG TAB PO SCH (09:00)
[2017-07-10] MEDS: BOOST GLUCOSE CONTROL PO SCH ×2 (10:00→21:03)
--- NOTE | 2017-07-10 11:13 | Gastroenterology Progress Note ---
Progress Note Date of Service: Jul 10, 2017 Subjective Pt evaluation today including: conversation w/ patient, physical exam, chart review, lab review, review of inpatient medication list Pt completed gastric emptying study - no signs of delayed emptying. Denies any n /v, feels hungry Review of Systems Constitutional: No fever, No chills Respiratory: No cough, No shortness of breath Cardiac: No chest pain Abdomen: No pain, No nausea, No vomiting Medications Current Inpatient Medications Medications (Trade) Dose Ordered Sig/Ethel Route Start Time Stop Time Status Last Admin Dose Admin Enoxaparin Sodium (Lovenox Inj) 30 mg DAILY SQ 07/08/17 09:00 08/07/17 08:59 07/09/17 15:13 30 MG Acetaminophen (Tylenol Tab) 650 mg Q4H PRN PO 07/07/17 16:30 08/06/17 16:29 Al Hydrox/Mg Hydrox/Simethicone (Maalox Max Susp) 15 ml Q4H PRN PO 07/07/17 16:30 08/06/17 16:29 Magnesium Hydroxide (Milk Of Magnesia Susp) 30 ml Q12H PRN PO 07/07/17 16:30 08/06/17 16:29 Ondansetron HCl (Zofran Inj) 4 mg Q6H PRN IV 07/07/17 16:30 08/06/17 16:29 Glucose (Glucose 40% Gel) 15-30 GRAMS 15 GRAMS... UD PRN PO 07/07/17 16:30 08/06/17 16:29 07/08/17 07:36 30 GM Glucose (Glucose Chew Tab) 4-8 Tablets 4 Tabl... UD PRN PO 07/07/17 16:30 08/06/17 16:29 Dextrose (Dextrose 50% 50ML Syringe) 25-50ML OF 50% DW IV FOR... UD PRN IV 07/07/17 16:30 08/06/17 16:29 07/10/17 03:27 50 ML Glucagon (Glucagon Inj) 1 mg UD PRN SQ 07/07/17 16:30 08/06/17 16:29 Aspirin (Aspirin Chew) 81 mg QAM PO 07/08/17 09:00 08/07/17 08:59 07/08/17 07:38 81 MG Carvedilol (Coreg Tab) 25 mg BID PO 07/07/17 21:00 08/06/17 20:59 07/09/17 21:25 25 MG Fexofenadine HCl (Telma Tab) 180 mg HS PO 07/07/17 21:00 08/06/17 20:59 07/09/17 21:25 180 MG Hydralazine HCl (Apresoline Tab) 25 mg TID PO 07/07/17 21:00 08/06/17 20:59 07/09/17 21:25 25 MG Levothyroxine Sodium (Synthroid Tab) 200 mcg DAILYBB PO 07/08/17 06:30 08/07/17 06:59 07/08/17 06:13 200 MCG Loratadine (Claritin Tab) 10 mg QAM PO 07/08/17 09:00 08/07/17 08:59 07/08/17 07:37 10 MG Magnesium Oxide (Mag-Ox Tab) 400 mg BID PO 07/07/17 21:00 08/06/17 20:59 07/09/17 21:26 400 MG Pantoprazole Sodium (Protonix Tab) 40 mg QAM PO 07/08/17 09:00 08/07/17 08:59 07/09/17 15:10 40 MG Simvastatin (Zocor Tab) 10 mg QPM PO 07/07/17 21:00 08/06/17 20:59 07/09/17 21:25 10 MG Tramadol HCl (Ultram Tab) 50 mg Q8H PRN PO 07/07/17 16:30 08/06/17 16:29 07/09/17 16:50 50 MG Cholecalciferol (Vitamin D Tab) 2,000 inter.unit DAILY PO 07/08/17 09:00 08/07/17 08:59 07/09/17 15:10 2,000 INTER.UNIT Insulin Aspart (novoLOG ASPART) SLIDING SCALE If C... ACHS SC 07/07/17 18:00 08/06/17 17:59 07/09/17 21:30 1 UNITS Miscellaneous Information (Consult Glycemic Management Pharmacy) 1 ea UD PRN N/A 07/07/17 16:45 08/06/17 16:44 Metoclopramide HCl (Reglan Tab) 5 mg Q8 PRN PO 07/08/17 09:00 08/06/17 17:44 Future Hold 07/08/17 16:42 5 MG Insulin Glargine (Lantus Solostar Pen) SEE PROTOCOL HS SC 07/08/17 21:00 08/07/17 20:59 Future Hold 07/09/17 21:27 8 UNITS Enteral Nutritional Formula (Boost Glucose Control) 1 can TODAY@1000,2100 PO 07/08/17 21:00 08/07/17 20:59 07/09/17 21:25 1 CAN Ceftriaxone Sodium 1 gm/ Dextrose 50 ml @ 100 mls/hr Q24H IV 07/09/17 15:00 07/14/17 14:59 07/09/17 15:39 100 MLS/HR Dextrose/Sodium Chloride 1,000 ml @ 125 mls/hr Q8H IV 07/10/17 04:00 08/09/17 03:59 07/10/17 03:49 80 MLS/HR Sertraline HCl (Zoloft Tab) 50 mg QAM PO 07/10/17 09:00 08/09/17 08:59 Objective Vital Signs Date Time Temp Pulse Resp B/P (MAP) Pulse Ox O2 Delivery O2 Flow Rate FiO2 07/10/17 08:00 98 Room Air 07/10/17 07:27 36.6 64 16 133/73 (93) 98 67 101/63 (76) 66 105/72 (83) 07/10/17 04:00 36.5 16 136/75 (95) 98 Room Air 07/10/17 04:00 Room Air 07/10/17 00:00 Room Air 07/09/17 22:54 36.5 69 18 124/68 (86) 98 Room Air 07/09/17 21:21 74 130/70 (90) 07/09/17 20:00 Room Air 07/09/17 16:11 36.7 74 16 109/66 (80) 100 Room Air 07/09/17 16:00 Room Air 07/09/17 14:45 36.7 72 16 132/73 (92) 98 Room Air 07/09/17 14:19 71 18 130/48 (75) 97 Room Air 07/09/17 14:04 67 18 119/50 (73) 97 Room Air 07/09/17 13:49 72 18 110/46 (67) 97 Room Air 07/09/17 11:42 37.1 67 20 154/61 (92) 100 Room Air 07/09/17 11:21 36.2 65 16 114/67 (83) 97 Room Air Physical Exam General Appearance: WD/WN, no apparent distress, + obese Eyes: normal inspection, PERRL, EOMI Neck: supple, no JVD, trachea midline Respiratory/Chest: normal breath sounds, no respiratory distress, no accessory muscle use Cardiovascular: regular rate, rhythm, no gallop, no murmur Abdomen: normal bowel sounds, non tender, soft Extremities: normal inspection, no pedal edema, no calf tenderness Neurologic/Psych: alert, normal mood/affect, oriented x 3 Skin: normal color, no jaundice, no rash Laboratory Results Last 24 Hours Test 07/09/17 11:15 07/09/17 15:06 07/09/17 20:16 07/10/17 03:12 Bedside Glucose 128 mg/dl 119 mg/dl 185 mg/dl 50 mg/dl Test 07/10/17 03:52 07/10/17 10:34 Bedside Glucose 128 mg/dl 89 mg/dl Assessment and Plan Patient is a 81 year old female currently seen for chronic nausea w/o vomiting, weight loss (reported 30lbs in last year), taste changes. CT abd/pelvis w/ PO contrast last April (in [facility]), showed no acute processes/obstruction but pancreas noted to be markedly atrophied w pancreas duct dilated to 8mm. There was also an asymmetry of cecal wall thickening for which she had colonoscopy evaluation 06/10/17 w normal results. DDx: gastritis, PUD, Hpylori (hx of this in 2010), gastroparesis, chronic pancreatitis. EGD on 07/09/17 showed Gastritis, bx pending. GES normal. Plans - Reglan 5mg PO q8hrs prn nausea/vomiting - Protonix 40mg daily - Ok to advance diet as tolerated - Will need output EUS to eval pancreas given dilated panc duct ? chronic pancreatitis. - Will sign off, call if new questions/concerns arise I performed a history and physical examination of the patient, including specifically on physical exam - abdomen is soft.I have discussed the patient's management with Melba. Please refer to the [employer]'s note for the documented findings and plan of care. Nausea resolved. Follow up as OP for EUS.
--- NOTE | 2017-07-10 12:30 | Pharmacy Progress Note ---
Glycemic Control Progress Note Date of Service Jul 10, 2017. Scope Glycemic Pharmacist consulted for glycemic control to write orders per [facility] inpatient glycemic control protocol. Objective Accuchecks BSG (last 24hrs): Test 07/09/17 15:06 07/09/17 20:16 07/10/17 03:12 07/10/17 03:52 Bedside Glucose 119 mg/dl (70-90) 185 mg/dl (70-90) 50 mg/dl (70-90) 128 mg/dl (70-90) Test 07/10/17 10:34 07/10/17 11:31 Bedside Glucose 89 mg/dl (70-90) 96 mg/dl (70-90) HbA1c: Test 07/08/17 05:20 Hemoglobin A1c 12.2 % (4.5-5.6) H Recent Pertinent Medications The patient is currently receiving: * Basal insulin: Lantus 8 units SQ HS * Correctional Insulin: Novolog Correction per scale ACHS Goal Range: Low 120 mg/dL - High 160 mg/dL Correction Factor: 25 mg/dL/unit * Prandial insulin: Per carb ratio of 1 unit per 8 grams CHO consumed Outpatient Anti-Diabetic Meds Lantus 10 units SQ HS NovoLog 16 units SQ TIDM *NOTE - patient is non-compliant with insulin; she informed the Last Picker that she had not been checking her BSG or taking insulin for several weeks Assessment & Plan ASSESSMENT: * See progress note from 07/07/17 for more background info, in short: * Pt receiving SQ basal bolus insulin regimen for hyperglycemia secondary to baseline DM (outpatient regimen on hold). Patient reports worsening diabetic gastroparesis with 30 lb weight loss over the past year. She has been experiencing hypoglycemia at home. Very poor outpatient control, A1c 12.2%. * Patient received 20 units of insulin over the past 24 hours: * 8 basal insulin * 12 units of bolus insulin * BSGs: 175 (fasting), 128, 119, 185, 68 (fasting) * Changes needed to insulin regimen: * AM Fasting BSG = 68 mg/dl. This is below goal for patient based on inpatient targets and co-morbidities. Patient experienced hypoglycemia overnight, BSG 50 mg/dL. Will hold Lantus for now. PLAN FOR INPATIENT GLYCEMIC CONTROL: * Basal insulin - on hold * Bolus insulin * NovoLog per scale ACHS or Q6hrs while NPO * Goal Range: Low 120 mg/dL - High 160 mg/dL * Correction Factor: 30 mg/dL/unit * Nutritional / Prandial insulin per carb ratio of 1 unit per 10 grams CHO consumed Thank you.
--- NOTE | 2017-07-10 12:37 | DIAGNOSTIC IMAGING REPORT ---
GASTRIC EMPTYING HISTORY: Dyspepsia nausea COMPARISON: None. TECHNIQUE: Following the oral administration of 1.1 mCi of technetium 99m sulfur colloid in egg sandwich and 8 ounces of water, static abdominal images are obtained anteriorly and posteriorly at 0 minutes, 1 hour, 2 hour, and 4 hour time intervals. Gastric emptying was calculated utilizing the geometric mean method. FINDINGS: There is approximately 35 % activity remaining at the 1 hour time interval (normal is less than 90%), 30 % remaining at the 2 hour time interval (normal is less than 60%), and 3 % activity remaining at the 4 hour time interval (normal is less than 10%). IMPRESSION: No evidence for delayed gastric emptying. The above report was generated using voice recognition software. It may contain grammatical, syntax or spelling errors. Electronically signed by: Vj Rinaldi M.D. 07/10/2017 12:36 PM Dictated Date/Time: 07/10/2017 12:35 PM
[2017-07-10] MEDS: CEFTRIAXONE SOD INJ 1 GM in DEXTROSE 5% ADD-VANTAGE 50ML 50 ML IV SCH (14:19)
[2017-07-10] MEDS: FEXOFENADINE HCL 180 MG TAB PO SCH (21:04)
[2017-07-10] MEDS: SIMVASTATIN 10 MG TAB PO SCH (21:05)
--- NOTE | 2017-07-10 21:25 | Progress Note ---
Medicine Progress Note Date & Time of Visit: Jul 10, 2017 at 16:20 . Subjective CC: Follow-up visit for multiple problems. HPI: No episodes of syncope or lightheadedness since admission. No chest pain, palpitations, dyspnea. Nausea improved. No diarrhea. Experiencing some dysuria. Blood sugar as low as 50 during the night. ROS: General- no fever, no chills Resp- no cough; no shortness of breath Cardiac- as noted above in HPI GI- as noted above in HPI - as noted above in HPI . Objective Last 8 Hrs Date Time Temp Pulse Resp B/P (MAP) Pulse Ox O2 Delivery O2 Flow Rate FiO2 07/10/17 20:58 71 110/66 (81) 07/10/17 20:00 Room Air 07/10/17 19:37 36.6 76 18 117/67 (84) 94 Room Air 07/10/17 16:00 Room Air 07/10/17 15:18 36.6 79 18 117/66 (83) 97 Room Air Physical Exam: General- lying in bed; no distress Lungs- clear to auscultation; no respiratory distress Cardiovascular- RRR; II/ systolic murmur LSB; no diastolic murmur appreciated ; no gallop; no JVD; 1-2+ pretibial edema Abdomen- + bowel sounds, soft, nontender Extremities- no cyanosis; no calf tenderness Neuro- alert, oriented Skin- warm & dry . Laboratory Results: Last 24 Hours Test 07/10/17 03:12 07/10/17 03:52 07/10/17 09:30 07/10/17 10:34 Bedside Glucose 50 mg/dl 128 mg/dl 76 mg/dl 89 mg/dl Test 07/10/17 11:31 07/10/17 14:32 07/10/17 16:34 07/10/17 20:26 Bedside Glucose 96 mg/dl 247 mg/dl 123 mg/dl Assessment & Plan SYNCOPE Etiology uncertain. Possibilities include hypoglycemia, orthostasis, arrhythmia, UTI. Specific problems discussed below. Continue to monitor for arrhythmias. CORONARY ARTERY DISEASE No anginal symptoms. CPK slightly elevated- probably from fall. Troponin negative. Continue aspirin, carvedilol, statin. CHRONIC LEFT VENTRICULAR DIASTOLIC HEART FAILURE Appears to be compensated. BP's relatively low / orthostatic. Holding torsemide. Follow and titrate diuretics. 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 Last echo June 2016. Exam stable. HYPERTENSION BP's relatively low. Orthostatic. Follow and titrate Rx. CKD III / CUTE KIDNEY INJURY Serum creatinine at time of admission 1.75. Received IV fluids. Creatinine yesterday = 1.23. Follow. DM TYPE 2 Not always well-controlled at home. Hgb A1C = 12.2. Possible hypoglycemia at home night of admission. Measured blood sugar at home reportedly 85. Random blood sugar upon arrival to ED was 176. Pharmacy consulted for glycemic management. Hypoglycemic again last night. Follow and titrate Rx. UTI (present on admission) UA showed + leukocyte esterase, many WBC's, many epithelial cells, 1+ bacteria. Urine culture growing gram negative bacilli. IV ceftriaxone pending final culture report. NAUSEA / WT LOSS Patient reports 30 lb weight loss associated with anorexia and nausea. May have gastroparesis or other pathology. GI consulted. EGD 07/09 only showed gastritis. Gastric emptying scan today was normal. Try to avoid / adjust meds that might cause nausea (e.g., Fe, sertraline). VTE PROPHYLAXIS SQ enoxaparin. Ambulate. DISPOSITION To be determined. Family Medicine follow-up with Dr. Adams. . . Current Inpatient Medications: Current Inpatient Medications Medications (Trade) Dose Ordered Sig/Ethel Route Start Time Stop Time Status Last Admin Dose Admin Enoxaparin Sodium (Lovenox Inj) 30 mg DAILY SQ 07/08/17 09:00 08/07/17 08:59 07/10/17 14:08 30 MG Acetaminophen (Tylenol Tab) 650 mg Q4H PRN PO 07/07/17 16:30 08/06/17 16:29 Al Hydrox/Mg Hydrox/Simethicone (Maalox Max Susp) 15 ml Q4H PRN PO 07/07/17 16:30 08/06/17 16:29 Magnesium Hydroxide (Milk Of Magnesia Susp) 30 ml Q12H PRN PO 07/07/17 16:30 08/06/17 16:29 Ondansetron HCl (Zofran Inj) 4 mg Q6H PRN IV 07/07/17 16:30 08/06/17 16:29 Glucose (Glucose 40% Gel) 15-30 GRAMS 15 GRAMS... UD PRN PO 2/4/18 16:30 08/06/17 16:29 07/08/17 07:36 30 GM Glucose (Glucose Chew Tab) 4-8 Tablets 4 Tabl... UD PRN PO 07/07/17 16:30 08/06/17 16:29 Dextrose (Dextrose 50% 50ML Syringe) 25-50ML OF 50% DW IV FOR... UD PRN IV 07/07/17 16:30 08/06/17 16:29 07/10/17 03:27 50 ML Glucagon (Glucagon Inj) 1 mg UD PRN SQ 07/07/17 16:30 08/06/17 16:29 Aspirin (Aspirin Chew) 81 mg QAM PO 07/08/17 09:00 08/07/17 08:59 07/10/17 14:18 81 MG Carvedilol (Coreg Tab) 25 mg BID PO 07/07/17 21:00 08/06/17 20:59 07/10/17 21:04 25 MG Fexofenadine HCl (Telma Tab) 180 mg HS PO 07/07/17 21:00 08/06/17 20:59 07/10/17 21:04 180 MG Hydralazine HCl (Apresoline Tab) 25 mg TID PO 07/07/17 21:00 08/06/17 20:59 07/10/17 21:05 25 MG Levothyroxine Sodium (Synthroid Tab) 200 mcg DAILYBB PO 07/08/17 06:30 08/07/17 06:59 07/08/17 06:13 200 MCG Loratadine (Claritin Tab) 10 mg QAM PO 07/08/17 09:00 08/07/17 08:59 07/10/17 14:07 10 MG Magnesium Oxide (Mag-Ox Tab) 400 mg BID PO 07/07/17 21:00 08/06/17 20:59 07/10/17 21:04 400 MG Pantoprazole Sodium (Protonix Tab) 40 mg QAM PO 07/08/17 09:00 08/07/17 08:59 07/10/17 14:07 40 MG Simvastatin (Zocor Tab) 10 mg QPM PO 07/07/17 21:00 08/06/17 20:59 07/10/17 21:05 10 MG Tramadol HCl (Ultram Tab) 50 mg Q8H PRN PO 07/07/17 16:30 08/06/17 16:29 07/09/17 16:50 50 MG Cholecalciferol (Vitamin D Tab) 2,000 inter.unit DAILY PO 07/08/17 09:00 08/07/17 08:59 07/10/17 14:07 2,000 INTER.UNIT Insulin Aspart (novoLOG ASPART) SLIDING SCALE If C... ACHS SC 07/07/17 18:00 08/06/17 17:59 07/10/17 17:37 12 UNITS Miscellaneous Information (Consult Glycemic Management Pharmacy) 1 ea UD PRN N/A 07/07/17 16:45 08/06/17 16:44 Metoclopramide HCl (Reglan Tab) 5 mg Q8 PRN PO 07/08/17 09:00 08/06/17 17:44 Future Hold 07/08/17 16:42 5 MG Enteral Nutritional Formula (Boost Glucose Control) 1 can TODAY@1000,2100 PO 07/08/17 21:00 08/07/17 20:59 07/10/17 21:03 1 CAN Ceftriaxone Sodium 1 gm/ Dextrose 50 ml @ 100 mls/hr Q24H IV 07/09/17 15:00 07/14/17 14:59 07/10/17 14:19 100 MLS/HR Sertraline HCl (Zoloft Tab) 50 mg QAM PO 07/10/17 09:00 08/09/17 08:59
[2017-07-11] VITALS (12 sets, daily range): BP systolic 71–135; BP diastolic 45–77; PULSE 64–86; TEMP 36.4–36.8; O2SAT 98–99; Ht 157.5 cm; Wt 87.0 kg
[2017-07-11] MEDS: LEVOTHYROXINE 200 MCG TAB PO SCH (06:12)
[2017-07-11 06:30] LABS: CALCIUM 7.8 mg/dl (8.5-10.1); CREATININE 1.15 mg/dl (0.60-1.20); POTASSIUM 4.7 mmol/L (3.5-5.1)
[2017-07-11] MEDS: CARVEDILOL 25 MG TAB PO SCH ×2 (08:01→21:00)
[2017-07-11] MEDS: MAGNESIUM OXIDE 400 MG TAB PO SCH ×2 (08:01→21:01)
[2017-07-11] MEDS: LORATADINE 10 MG TAB PO SCH (08:01)
[2017-07-11] MEDS: CHOLECALCIFEROL 1000 INTER.UNIT TAB PO SCH (08:01)
[2017-07-11] MEDS: SERTRALINE HCL 50 MG TAB PO SCH (08:01)
[2017-07-11] MEDS: ENOXAPARIN 30 MG/0.3 ML SYR SQ SCH (08:02)
[2017-07-11] MEDS: PANTOprazole SOD 40 MG TAB PO SCH (08:02)
[2017-07-11] MEDS: INSULIN ASPART 100 UNITS/ML 3 ML PEN SC SCH ×4 (08:05→21:00)
[2017-07-11] MEDS: ASPIRIN 81 MG CHEW PO SCH (08:06)
[2017-07-11] MEDS: ACETAMINOPHEN 325 MG TAB PO PRN (09:29)
[2017-07-11] MEDS: BOOST GLUCOSE CONTROL PO SCH ×3 (09:40→17:00)
[2017-07-11] MEDS ORDERED: NURSING VERBAL MED ORDER ONE (09:45)
[2017-07-11] MEDS ORDERED: SOD PHOSPHATE/SOD BIPHOSPHATE ENEMA 132 ML BTL PR ONE (10:45)
[2017-07-11] MEDS ORDERED: DOCUSATE SODIUM/SENNA 50/8.6MG TAB PO ONE (10:45)
[2017-07-11] MEDS: DOCUSATE SODIUM 100 MG CAP PO SCH ×2 (10:48→21:02)
[2017-07-11] MEDS ORDERED: EUCERIN CR 120 GM JAR EXT PRN (12:00)
[2017-07-11] MEDS ORDERED: SOD PHOSPHATE/SOD BIPHOSPHATE ENEMA 132 ML BTL ONE (13:56)
[2017-07-11] MEDS: CEFTRIAXONE SOD INJ 1 GM in DEXTROSE 5% ADD-VANTAGE 50ML 50 ML IV SCH (14:26)
--- NOTE | 2017-07-11 19:45 | Progress Note ---
Medicine Progress Note Date & Time of Visit: Jul 11, 2017 at 16:20 . Subjective CC: Follow-up visit for multiple problems. HPI: No episodes of syncope since admission, but lightheaded when standing earlier today. No chest pain, palpitations, dyspnea. Nausea improved. Nursing noted fecal impaction. No dysuria today. Blood sugars improved. ROS: General- no fever, no chills Resp- no cough; no shortness of breath Cardiac- as noted above in HPI GI- as noted above in HPI - as noted above in HPI . Objective Last 8 Hrs Date Time Temp Pulse Resp B/P (MAP) Pulse Ox O2 Delivery O2 Flow Rate FiO2 07/11/17 14:42 36.7 64 18 89/53 (65) 98 Room Air 07/11/17 12:00 98 Room Air Physical Exam: General- sitting in chair; no distress Lungs- clear to auscultation; no respiratory distress Cardiovascular- RRR; II/ systolic murmur LSB; no diastolic murmur appreciated ; no gallop; no JVD; 2+ pretibial edema Abdomen- + bowel sounds, soft, nontender Extremities- no cyanosis; no calf tenderness Neuro- alert, oriented Skin- warm & dry . Laboratory Results: Last 24 Hours Test 07/10/17 20:26 07/11/17 03:01 07/11/17 05:18 07/11/17 07:34 Bedside Glucose 123 mg/dl 96 mg/dl 118 mg/dl Sodium Level 140 mmol/L Potassium Level 4.7 mmol/L Chloride Level 108 mmol/L Carbon Dioxide Level 27 mmol/L Anion Gap 5.0 mmol/L Blood Urea Nitrogen 13 mg/dl Creatinine 1.15 mg/dl Est Creatinine Clear Calc Drug Dose 40.1 ml/min Estimated GFR () 52.4 Estimated GFR (Non- 45.2 BUN/Creatinine Ratio 11.3 Random Glucose 108 mg/dl Calcium Level 7.8 mg/dl Test 07/11/17 10:35 07/11/17 11:28 07/11/17 16:17 Bedside Glucose 143 mg/dl 205 mg/dl 79 mg/dl Assessment & Plan SYNCOPE Etiology uncertain. Possibilities include hypoglycemia, orthostasis, arrhythmia, UTI. Specific problems discussed below. Continue to monitor for arrhythmias. CORONARY ARTERY DISEASE No anginal symptoms. CPK slightly elevated- probably from fall. Troponin negative. Continue aspirin, carvedilol, statin. CHRONIC LEFT VENTRICULAR DIASTOLIC HEART FAILURE Appears to be compensated. BP's relatively low / orthostatic. Holding torsemide. Follow and titrate diuretics. 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 Last echo June 2016. Exam stable. HYPERTENSION BP's relatively low. Orthostatic. Stop hydralazine. Continue carvedilol. Follow and titrate Rx. CKD III / CUTE KIDNEY INJURY Serum creatinine at time of admission 1.75. Received IV fluids. Creatinine yesterday = 1.15. Follow. DM TYPE 2 Not always well-controlled at home. Hgb A1C = 12.2. Possible hypoglycemia at home night of admission. Measured blood sugar at home reportedly 85. Random blood sugar upon arrival to ED was 176. Pharmacy consulted for glycemic management. FBS this morning = 118. Follow and titrate Rx. Anticipate modification of home routine. Diabetes education. UTI (present on admission) UA showed + leukocyte esterase, many WBC's, many epithelial cells, 1+ bacteria. IV ceftriaxone pending final culture report. Urine culture growing gram negative bacilli. Transition to oral therapy with TMP/sulfa. NAUSEA / WT LOSS Patient reports 30 lb weight loss associated with anorexia and nausea. May have gastroparesis or other pathology. GI consulted. EGD 07/09 only showed gastritis. Gastric emptying scan 07/10 was normal. Try to avoid / adjust meds that might cause nausea (e.g., Fe, sertraline). VTE PROPHYLAXIS SQ enoxaparin. Ambulate. DISPOSITION To be determined. Family Medicine follow-up with Dr. Adams. . . Current Inpatient Medications: Current Inpatient Medications Medications (Trade) Dose Ordered Sig/Ethel Route Start Time Stop Time Status Last Admin Dose Admin Enoxaparin Sodium (Lovenox Inj) 30 mg DAILY SQ 07/08/17 09:00 08/07/17 08:59 07/11/17 08:02 30 MG Acetaminophen (Tylenol Tab) 650 mg Q4H PRN PO 07/07/17 16:30 08/06/17 16:29 07/11/17 09:29 650 MG Al Hydrox/Mg Hydrox/Simethicone (Maalox Max Susp) 15 ml Q4H PRN PO 07/07/17 16:30 08/06/17 16:29 Magnesium Hydroxide (Milk Of Magnesia Susp) 30 ml Q12H PRN PO 07/07/17 16:30 08/06/17 16:29 07/11/17 09:06 30 ML Ondansetron HCl (Zofran Inj) 4 mg Q6H PRN IV 07/07/17 16:30 08/06/17 16:29 Glucose (Glucose 40% Gel) 15-30 GRAMS 15 GRAMS... UD PRN PO 07/07/17 16:30 08/06/17 16:29 07/08/17 07:36 30 GM Glucose (Glucose Chew Tab) 4-8 Tablets 4 Tabl... UD PRN PO 07/07/17 16:30 08/06/17 16:29 Dextrose (Dextrose 50% 50ML Syringe) 25-50ML OF 50% DW IV FOR... UD PRN IV 07/07/17 16:30 08/06/17 16:29 07/10/17 03:27 50 ML Glucagon (Glucagon Inj) 1 mg UD PRN SQ 07/07/17 16:30 08/06/17 16:29 Aspirin (Aspirin Chew) 81 mg QAM PO 07/08/17 09:00 08/07/17 08:59 07/11/17 08:06 81 MG Carvedilol (Coreg Tab) 25 mg BID PO 07/07/17 21:00 08/06/17 20:59 07/11/17 08:01 25 MG Fexofenadine HCl (Telma Tab) 180 mg HS PO 07/07/17 21:00 08/06/17 20:59 07/10/17 21:04 180 MG Levothyroxine Sodium (Synthroid Tab) 200 mcg DAILYBB PO 07/08/17 06:30 08/07/17 06:59 07/11/17 06:12 200 MCG Loratadine (Claritin Tab) 10 mg QAM PO 07/08/17 09:00 08/07/17 08:59 07/11/17 08:01 10 MG Magnesium Oxide (Mag-Ox Tab) 400 mg BID PO 07/07/17 21:00 08/06/17 20:59 07/11/17 08:01 400 MG Pantoprazole Sodium (Protonix Tab) 40 mg QAM PO 07/08/17 09:00 08/07/17 08:59 07/11/17 08:02 40 MG Simvastatin (Zocor Tab) 10 mg QPM PO 07/07/17 21:00 08/06/17 20:59 07/10/17 21:05 10 MG Tramadol HCl (Ultram Tab) 50 mg Q8H PRN PO 07/07/17 16:30 08/06/17 16:29 07/09/17 16:50 50 MG Cholecalciferol (Vitamin D Tab) 2,000 inter.unit DAILY PO 07/08/17 09:00 08/07/17 08:59 07/11/17 08:01 2,000 INTER.UNIT Insulin Aspart (novoLOG ASPART) SLIDING SCALE If C... ACHS SC 07/07/17 18:00 08/06/17 17:59 07/11/17 18:21 10 UNITS Miscellaneous Information (Consult Glycemic Management Pharmacy) 1 ea UD PRN N/A 07/07/17 16:45 08/06/17 16:44 Metoclopramide HCl (Reglan Tab) 5 mg Q8 PRN PO 07/08/17 09:00 08/06/17 17:44 Future Hold 07/08/17 16:42 5 MG Ceftriaxone Sodium 1 gm/ Dextrose 50 ml @ 100 mls/hr Q24H IV 07/09/17 15:00 07/14/17 14:59 07/11/17 14:26 100 MLS/HR Sertraline HCl (Zoloft Tab) 50 mg QAM PO 07/10/17 09:00 08/09/17 08:59 07/11/17 08:01 50 MG Docusate Sodium (coLACE CAP) 100 mg BID PO 07/11/17 10:00 08/10/17 09:59 07/11/17 10:48 100 MG Senna/Docusate Sodium (Senokot S Tab) 2 tab BID PO 07/11/17 21:00 08/10/17 20:59 Sodium Biphosphate/ Sodium Phosphate (Fleet Enema) 132 ml DAILY PRN MS 07/12/17 09:00 08/11/17 08:59 Enteral Nutritional Formula (Boost Glucose Control) 1 can TIDM PO 07/11/17 12:00 08/10/17 11:59 07/11/17 17:00 1 CAN Multi-Ingredient Ointment (Eucerin Unscented Cr) 1 appln BID PRN EXT 07/11/17 12:00 08/10/17 11:59
[2017-07-11] MEDS: FEXOFENADINE HCL 180 MG TAB PO SCH (21:00)
[2017-07-11] MEDS: SIMVASTATIN 10 MG TAB PO SCH (21:01)
[2017-07-11] MEDS: DOCUSATE SODIUM/SENNA 50/8.6MG TAB PO SCH (21:01)
[2017-07-12] VITALS (11 sets, daily range): BP systolic 92–160; BP diastolic 53–78; PULSE 69–90; TEMP 36.4–37.1; O2SAT 95–100
[2017-07-12] MEDS: LEVOTHYROXINE 200 MCG TAB PO SCH (06:01)
[2017-07-12 06:37] LABS: HEMATOCRIT 33.5 % (37-47); HEMOGLOBIN 10.8 g/dL (12.0-16.0); MEAN CELL VOLUME 94.4 fL (80-100); MEAN CORPUSCULAR HEMOGLOBIN 30.4 pg (25-34); MEAN CORPUSCULAR HGB CONC 32.2 g/dl (32-36); MEAN PLATELET VOLUME 9.5 fL (7.4-10.4); PLATELET COUNT 219 K/uL (130-400); RED CELL DISTRIBUTION WIDTH CV 14.7 % (11.5-14.5); RED CELL DISTRIBUTION WIDTH SD 50.7 fL (36.4-46.3); WHITE BLOOD COUNT 5.29 K/uL (4.8-10.8)
[2017-07-12 06:59] LABS: CALCIUM 7.8 mg/dl (8.5-10.1); CREATININE 1.08 mg/dl (0.60-1.20); POTASSIUM 4.8 mmol/L (3.5-5.1)
[2017-07-12] MEDS: SULFAMETHOXAZOLE/TRIMETHOPRIM 400/80MG TAB PO SCH ×2 (08:21→22:07)
[2017-07-12] MEDS: ENOXAPARIN 30 MG/0.3 ML SYR SQ SCH (08:22)
[2017-07-12] MEDS: LORATADINE 10 MG TAB PO SCH (08:22)
[2017-07-12] MEDS: CARVEDILOL 25 MG TAB PO SCH ×2 (08:22→22:07)
[2017-07-12] MEDS: DOCUSATE SODIUM 100 MG CAP PO SCH ×2 (08:22→22:06)
[2017-07-12] MEDS: CHOLECALCIFEROL 1000 INTER.UNIT TAB PO SCH (08:22)
[2017-07-12] MEDS: DOCUSATE SODIUM/SENNA 50/8.6MG TAB PO SCH ×2 (08:22→22:07)
[2017-07-12] MEDS: SERTRALINE HCL 50 MG TAB PO SCH (08:22)
[2017-07-12] MEDS: PANTOprazole SOD 40 MG TAB PO SCH (08:23)
[2017-07-12] MEDS: MAGNESIUM OXIDE 400 MG TAB PO SCH ×2 (08:23→22:07)
[2017-07-12] MEDS: BOOST GLUCOSE CONTROL PO SCH ×3 (08:27→17:29)
[2017-07-12] MEDS: INSULIN ASPART 100 UNITS/ML 3 ML PEN SC SCH ×4 (08:28→21:00)
[2017-07-12] MEDS: ASPIRIN 81 MG CHEW PO SCH (08:29)
[2017-07-12] MEDS ORDERED: SOD PHOSPHATE/SOD BIPHOSPHATE ENEMA 132 ML BTL PR PRN (09:00)
--- NOTE | 2017-07-12 10:44 | Pharmacy Progress Note ---
Pharmacy Glycemic Short Note 2 Date of Service Jul 12, 2017. OUTPATIENT ANTIDIABETIC REGIMEN: * Lantus 10 units qPM plus Novolog 10 units TIDM ASSESSMENT: * Ms Gunter is a 81 y/o F with a PMH of neuropathy, CAD, and CHF who presented with weakness possibly from hypoglycemia. The patient has required around 20 units of insulin while here. Yesterday blood sugars ranged from 79-149 mg/L and she received 28 units of insulin (all prandial). Fasting blood sugar is 140 mg/ dL today. * The patient's Lantus dose was held x 2 days since the patient had low blood sugars. (Received 8 units on 07/09/17 and none on 07/10-07/11). Restart at half of the dose since the patient's fasting blood sugar is much higher than yesterday. Continue Novolog coverage as previously ordered as the patient's blood sugar did not fluctuate greatly yesterday. PLAN FOR INPATIENT GLYCEMIC CONTROL: * Basal insulin * Lantus 4 units SQ HS * Bolus insulin * NovoLog per scale ACHS or Q6hrs while NPO * Goal Range: Low 110 mg/dL - High 140 mg/dL * Correction Factor: 25 mg/dL/unit * Nutritional / Prandial insulin per carb ratio of 1 unit per 8 grams CHO consumed PLAN FOR DISCHARGE: * Patient has significant non-compliance at home ... recommend counseling on the importance of compliance and starting with Lantus 5 units at bedtime. May titrate upwards as appropriate.
[2017-07-12] MEDS: GLUCOSE 40% GEL 15 GM TUBE PO PRN (16:58)
--- NOTE | 2017-07-12 20:42 | Progress Note ---
Internal Med Progress Note Date of Service: Jul 12, 2017. Provider Documentation: SUBJECTIVE: resting comfortably tolerating diet now denies any nausea currently moving bowels ok afebrile no sob or chest pain no dizziness OBJECTIVE: Vital Signs-as noted below Exam: General-alert and oriented. Not in distress ENT-Normal hearing Neck-no neck masses Lungs-cta b/l no wheezing or crackles Heart-S 1 and S 2heard regular rate and rhythm no murmurs Abdomen-soft bowel sounds present non tender no distension Extremities-no edema no erythema Neuro-alert and awake moves extremities Lab data as noted below. ASSESSMENT & PLAN: SYNCOPE Possibly from hypoglycemia, orthostasis, arrhythmia, UTI. Specific problems discussed below. Continue to monitor for arrhythmias. currently stable CORONARY ARTERY DISEASE asymptomatic CPK slightly elevated- probably from fall. Troponin negative. on aspirin, carvedilol, statin. CHRONIC LEFT VENTRICULAR DIASTOLIC HEART FAILURE compensated. BP's relatively low / orthostatic. Holding torsemide. on coreg will monitor for volume overload VALVULAR HEART DISEASE S/P mitral valve repair. Last echo June 2016. Exam stable. HYPERTENSION BP's relatively low. Orthostatic. Stopped hydralazine. Continue carvedilol. Will monitor CKD III / CUTE KIDNEY INJURY Serum creatinine at time of admission 1.75. Received IV fluids. reolved f/u labs DM TYPE 2 uncontrolled Hgb A1C = 12.2. Possible hypoglycemia at home night of admission. Measured blood sugar at home reportedly 85. Random blood sugar upon arrival to ED was 176. Pharmacy consulted for glycemic management appreciate inputs. Diabetes education. holding Lantus for hypoglycemia UTI (present on admission) received ebenezer Rocephin. currently on TMP/sulfa. cx growing Citrobacter and e.coli both sensitive to bactrim. NAUSEA / WT LOSS Patient reports 30 lb weight loss associated with anorexia and nausea. possibly gastroparesis or other pathology. GI consulted. EGD 07/09 only showed gastritis. Gastric emptying scan normal. Try to avoid / adjust meds that might cause nausea (e.g., Fe, sertraline). tolerating diet ok now VTE PROPHYLAXIS SQ enoxaparin. Ambulate. DISPOSITION To be determined. Family Medicine follow-up with Dr. Adams. Vital Signs: Date Time Temp Pulse Resp B/P (MAP) Pulse Ox O2 Delivery O2 Flow Rate FiO2 07/12/17 20:00 98 Room Air 07/12/17 19:50 36.6 77 18 121/73 (89) 98 Room Air 07/12/17 16:00 98 Room Air 07/12/17 15:04 36.8 78 16 109/70 (83) 100 07/12/17 12:10 36.5 74 16 92/57 (69) 97 07/12/17 12:00 97 Room Air 07/12/17 07:56 36.6 78 18 111/62 (78) 99 Room Air 07/12/17 04:00 Room Air 07/12/17 03:00 36.5 69 18 109/53 (71) 98 Room Air 07/12/17 00:00 Room Air 07/11/17 22:50 36.5 69 18 115/64 (81) 98 Room Air 71 93/53 (66) 73 110/74 (86) Lab Results: Results Past 24 Hours Test 07/12/17 06:20 07/12/17 07:44 07/12/17 11:22 07/12/17 16:30 Range/Units White Blood Count 5.29 4.8-10.8 K/uL Red Blood Count 3.55 4.2-5.4 M/uL Hemoglobin 10.8 12.0-16.0 g/dL Hematocrit 33.5 37-47 % Mean Corpuscular Volume 94.4 80-100 fL Mean Corpuscular Hemoglobin 30.4 25-34 pg Mean Corpuscular Hemoglobin Concent 32.2 32-36 g/dl RDW Standard Deviation 50.7 36.4-46.3 fL RDW Coefficient of Variation 14.7 11.5-14.5 % Platelet Count 219 130-400 K/uL Mean Platelet Volume 9.5 7.4-10.4 fL Sodium Level 139 136-145 mmol/L Potassium Level 4.8 3.5-5.1 mmol/L Chloride Level 107 98-107 mmol/L Carbon Dioxide Level 29 21-32 mmol/L Anion Gap 3.0 3-11 mmol/L Blood Urea Nitrogen 15 7-18 mg/dl Creatinine 1.08 0.60-1.20 mg/dl Est Creatinine Clear Calc Drug Dose 42.9 ml/min Estimated GFR () 56.5 Estimated GFR (Non- 48.8 BUN/Creatinine Ratio 13.7 10-20 Random Glucose 140 70-99 mg/dl Calcium Level 7.8 8.5-10.1 mg/dl Bedside Glucose 138 154 51 70-90 mg/dl Test 07/12/17 17:56 Range/Units Bedside Glucose 92 70-90 mg/dl
[2017-07-12] MEDS ORDERED: INSULIN GLARGINE SOLOSTAR 100 UNITS/ML 3 ML PEN SC SCH (21:00)
[2017-07-12] MEDS: FEXOFENADINE HCL 180 MG TAB PO SCH (22:06)
[2017-07-12] MEDS: SIMVASTATIN 10 MG TAB PO SCH (22:07)
[2017-07-12] MEDS: ACETAMINOPHEN 325 MG TAB PO PRN (22:10)
[2017-07-13] VITALS (10 sets, daily range): BP systolic 84–146; BP diastolic 49–74; PULSE 79–87; TEMP 36.7–37.5; O2SAT 93–98
[2017-07-13] MEDS ORDERED: INSULIN ASPART 100 UNITS/ML 3 ML PEN SC SCH (02:00)
[2017-07-13] MEDS: LEVOTHYROXINE 200 MCG TAB PO SCH (06:06)
[2017-07-13] MEDS: TRAMADOL HCL 50 MG TAB PO PRN (08:10)
[2017-07-13] MEDS: PANTOprazole SOD 40 MG TAB PO SCH (08:11)
[2017-07-13] MEDS: MAGNESIUM OXIDE 400 MG TAB PO SCH ×2 (08:11→21:06)
[2017-07-13] MEDS: SERTRALINE HCL 50 MG TAB PO SCH (08:11)
[2017-07-13] MEDS: CARVEDILOL 25 MG TAB PO SCH ×2 (08:11→21:06)
[2017-07-13] MEDS: CHOLECALCIFEROL 1000 INTER.UNIT TAB PO SCH (08:11)
[2017-07-13] MEDS: BOOST GLUCOSE CONTROL PO SCH ×3 (08:11→17:23)
[2017-07-13] MEDS: ASPIRIN 81 MG CHEW PO SCH (08:11)
[2017-07-13] MEDS: LORATADINE 10 MG TAB PO SCH (08:11)
[2017-07-13] MEDS: DOCUSATE SODIUM/SENNA 50/8.6MG TAB PO SCH ×2 (08:12→21:06)
[2017-07-13] MEDS: ENOXAPARIN 40 MG/0.4 ML SYR SQ SCH (08:12)
[2017-07-13] MEDS: DOCUSATE SODIUM 100 MG CAP PO SCH ×2 (08:12→21:05)
[2017-07-13] MEDS: SULFAMETHOXAZOLE/TRIMETHOPRIM 400/80MG TAB PO SCH ×2 (08:12→21:06)
[2017-07-13] MEDS: INSULIN ASPART 100 UNITS/ML 3 ML PEN SC SCH ×4 (08:18→21:00)
--- NOTE | 2017-07-13 18:31 | Progress Note ---
Medicine Progress Note Date & Time of Visit: Jul 13, 2017 at 11:15 . Subjective CC: Follow-up visit for multiple problems. HPI: No episodes of syncope since admission. No chest pain, palpitations, dyspnea. Nausea somewhat better. No dysuria. Blood sugars still low at times. Upper extremities feel achy and weak; no problems rising from sitting position. ROS: General- no fever, no chills Resp- no cough; no shortness of breath Cardiac- as noted above in HPI GI- as noted above in HPI - as noted above in HPI . Objective Last 8 Hrs Date Time Temp Pulse Resp B/P (MAP) Pulse Ox O2 Delivery O2 Flow Rate FiO2 07/13/17 07:44 36.9 80 16 109/64 (79) 98 07/13/17 07:30 97 Room Air 07/13/17 04:40 Room Air 07/13/17 03:40 37.5 84 18 109/64 (79) 95 Room Air Physical Exam: General- lying in bed; no distress Lungs- clear to auscultation; no respiratory distress Cardiovascular- RRR; II/ systolic murmur LSB; no diastolic murmur appreciated ; no gallop; no JVD; 2+ pretibial edema Abdomen- + bowel sounds, soft, nontender Extremities- no cyanosis; no calf tenderness; Tubigrip stockings applied to lower extremities Neuro- alert, oriented Skin- warm & dry . Laboratory Results: Last 24 Hours Test 07/12/17 16:30 07/12/17 17:56 07/12/17 20:45 07/13/17 02:04 Bedside Glucose 51 mg/dl 92 mg/dl 252 mg/dl 209 mg/dl Test 07/13/17 07:39 Bedside Glucose 127 mg/dl Assessment & Plan SYNCOPE Etiology uncertain. Possibilities include hypoglycemia, orthostasis, arrhythmia, UTI. Specific problems discussed below. Continue to monitor for arrhythmias. CORONARY ARTERY DISEASE No anginal symptoms. CPK slightly elevated- probably from fall. Troponin negative. Continue aspirin, carvedilol, statin. CHRONIC LEFT VENTRICULAR DIASTOLIC HEART FAILURE Appears to be compensated. BP's relatively low / orthostatic. Holding torsemide. Follow and titrate diuretics. 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 Last echo June 2016. Exam stable. HYPERTENSION BP's relatively low. Orthostatic. Stop hydralazine. Continue carvedilol. Follow and titrate Rx. ORTHOSTATIC HYPOTENSION Diuretics held. Hydralazine discontinued. Check cortisol / ACTH stim. CKD III / CUTE KIDNEY INJURY Serum creatinine at time of admission 1.75. Received IV fluids. Creatinine yesterday = 1.08. Follow. DM TYPE 2 Not always well-controlled at home. Hgb A1C = 12.2. Possible hypoglycemia at home night of admission. Measured blood sugar at home reportedly 85. Random blood sugar upon arrival to ED was 176. Pharmacy consulted for glycemic management. Lantus discontinued due to recurrent episodes of hypoglycemia. FBS this morning = 127. Follow and titrate Rx. Anticipate modification of home routine. Diabetes education. UTI (present on admission) UA showed + leukocyte esterase, many WBC's, many epithelial cells, 1+ bacteria. IV ceftriaxone pending final culture report. Urine culture growing gram negative bacilli. Transitioned to oral therapy with TMP/sulfa. NAUSEA / WT LOSS Patient reports 30 lb weight loss associated with anorexia and nausea. May have gastroparesis or other pathology. GI consulted. EGD 07/09 only showed gastritis. Gastric emptying scan 07/10 was normal. Try to avoid / adjust meds that might cause nausea (e.g., Fe, sertraline). UPPER EXTREMITY MYALGIAS / WEAKNESS ? PMR. Check ESR and c-reactive protein. VTE PROPHYLAXIS SQ enoxaparin. Ambulate. DISPOSITION To be determined. Family Medicine follow-up with Dr. Adams. . Current Inpatient Medications: Current Inpatient Medications Medications (Trade) Dose Ordered Sig/Ethel Route Start Time Stop Time Status Last Admin Dose Admin Acetaminophen (Tylenol Tab) 650 mg Q4H PRN PO 07/07/17 16:30 08/06/17 16:29 07/12/17 22:10 650 MG Al Hydrox/Mg Hydrox/Simethicone (Maalox Max Susp) 15 ml Q4H PRN PO 07/07/17 16:30 08/06/17 16:29 Magnesium Hydroxide (Milk Of Magnesia Susp) 30 ml Q12H PRN PO 07/07/17 16:30 08/06/17 16:29 07/11/17 09:06 30 ML Ondansetron HCl (Zofran Inj) 4 mg Q6H PRN IV 07/07/17 16:30 08/06/17 16:29 Glucose (Glucose 40% Gel) 15-30 GRAMS 15 GRAMS... UD PRN PO 07/07/17 16:30 08/06/17 16:29 07/12/17 16:58 30 GM Glucose (Glucose Chew Tab) 4-8 Tablets 4 Tabl... UD PRN PO 07/07/17 16:30 08/06/17 16:29 Dextrose (Dextrose 50% 50ML Syringe) 25-50ML OF 50% DW IV FOR... UD PRN IV 07/07/17 16:30 08/06/17 16:29 07/10/17 03:27 50 ML Glucagon (Glucagon Inj) 1 mg UD PRN SQ 07/07/17 16:30 08/06/17 16:29 Aspirin (Aspirin Chew) 81 mg QAM PO 07/08/17 09:00 08/07/17 08:59 07/13/17 08:11 81 MG Carvedilol (Coreg Tab) 25 mg BID PO 07/07/17 21:00 08/06/17 20:59 07/13/17 08:11 25 MG Fexofenadine HCl (Telma Tab) 180 mg HS PO 07/07/17 21:00 08/06/17 20:59 07/12/17 22:06 180 MG Levothyroxine Sodium (Synthroid Tab) 200 mcg DAILYBB PO 07/08/17 06:30 08/07/17 06:59 07/13/17 06:06 200 MCG Loratadine (Claritin Tab) 10 mg QAM PO 07/08/17 09:00 08/07/17 08:59 07/13/17 08:11 10 MG Magnesium Oxide (Mag-Ox Tab) 400 mg BID PO 07/07/17 21:00 08/06/17 20:59 07/13/17 08:11 400 MG Pantoprazole Sodium (Protonix Tab) 40 mg QAM PO 07/08/17 09:00 08/07/17 08:59 07/13/17 08:11 40 MG Simvastatin (Zocor Tab) 10 mg QPM PO 07/07/17 21:00 08/06/17 20:59 07/12/17 22:07 10 MG Tramadol HCl (Ultram Tab) 50 mg Q8H PRN PO 07/07/17 16:30 08/06/17 16:29 07/13/17 08:10 50 MG Cholecalciferol (Vitamin D Tab) 2,000 inter.unit DAILY PO 07/08/17 09:00 08/07/17 08:59 07/13/17 08:11 2,000 INTER.UNIT Insulin Aspart (novoLOG ASPART) SLIDING SCALE If C... ACHS SC 07/07/17 18:00 08/06/17 17:59 07/13/17 08:18 10 UNITS Miscellaneous Information (Consult Glycemic Management Pharmacy) 1 ea UD PRN N/A 07/07/17 16:45 08/06/17 16:44 Metoclopramide HCl (Reglan Tab) 5 mg Q8 PRN PO 07/08/17 09:00 08/06/17 17:44 Future Hold 07/08/17 16:42 5 MG Sertraline HCl (Zoloft Tab) 50 mg QAM PO 07/10/17 09:00 08/09/17 08:59 07/13/17 08:11 50 MG Docusate Sodium (coLACE CAP) 100 mg BID PO 07/11/17 10:00 08/10/17 09:59 07/12/17 22:06 100 MG Senna/Docusate Sodium (Senokot S Tab) 2 tab BID PO 07/11/17 21:00 08/10/17 20:59 07/12/17 22:07 2 TAB Sodium Biphosphate/ Sodium Phosphate (Fleet Enema) 132 ml DAILY PRN [place] 07/12/17 09:00 08/11/17 08:59 Enteral Nutritional Formula (Boost Glucose Control) 1 can TIDM PO 07/11/17 12:00 08/10/17 11:59 07/13/17 08:11 1 CAN Multi-Ingredient Ointment (Eucerin Unscented Cr) 1 appln BID PRN EXT 07/11/17 12:00 08/10/17 11:59 Trimethoprim/ Sulfamethoxazole (Septra 400/80MG Tab) 1 tab BID PO 07/12/17 09:00 07/17/17 08:59 07/13/17 08:12 1 TAB Insulin Glargine (Lantus Solostar Pen) 4 units HS SC 07/12/17 21:00 08/11/17 20:59 Future Hold Enoxaparin Sodium (Lovenox Inj) 40 mg DAILY SQ 07/13/17 09:00 08/12/17 08:59 07/13/17 08:12 40 MG
[2017-07-13] MEDS: FEXOFENADINE HCL 180 MG TAB PO SCH (21:06)
[2017-07-13] MEDS: SIMVASTATIN 10 MG TAB PO SCH (21:06)
[2017-07-14] VITALS (8 sets, daily range): BP systolic 101–128; BP diastolic 56–71; PULSE 68–76; TEMP 36.5–37; O2SAT 95–97
[2017-07-14] MEDS: LEVOTHYROXINE 200 MCG TAB PO SCH (05:57)
[2017-07-14] MEDS ORDERED: COSYNTROPIN INJ 250 MCG in SYRINGE 4 ML IV ONE (08:00)
[2017-07-14] MEDS: BOOST GLUCOSE CONTROL PO SCH ×3 (08:00→17:22)
[2017-07-14 08:28] LABS: CALCIUM 7.8 mg/dl (8.5-10.1); CREATININE 1.26 mg/dl (0.60-1.20); POTASSIUM 4.9 mmol/L (3.5-5.1)
[2017-07-14] MEDS: DOCUSATE SODIUM/SENNA 50/8.6MG TAB PO SCH ×2 (09:00→20:29)
[2017-07-14] MEDS: DOCUSATE SODIUM 100 MG CAP PO SCH ×2 (09:00→20:29)
[2017-07-14] MEDS: SULFAMETHOXAZOLE/TRIMETHOPRIM 400/80MG TAB PO SCH ×2 (09:49→20:28)
[2017-07-14] MEDS: ENOXAPARIN 40 MG/0.4 ML SYR SQ SCH (09:49)
[2017-07-14] MEDS: MAGNESIUM OXIDE 400 MG TAB PO SCH ×2 (09:49→20:31)
[2017-07-14] MEDS: PANTOprazole SOD 40 MG TAB PO SCH (09:49)
[2017-07-14] MEDS: CARVEDILOL 25 MG TAB PO SCH ×2 (09:50→20:31)
[2017-07-14] MEDS: SERTRALINE HCL 50 MG TAB PO SCH (09:50)
[2017-07-14] MEDS: CHOLECALCIFEROL 1000 INTER.UNIT TAB PO SCH (09:51)
[2017-07-14] MEDS: LORATADINE 10 MG TAB PO SCH (09:51)
[2017-07-14] MEDS: ASPIRIN 81 MG CHEW PO SCH (09:53)
[2017-07-14] MEDS: INSULIN ASPART 100 UNITS/ML 3 ML PEN SC SCH ×4 (09:55→20:57)
--- NOTE | 2017-07-14 14:43 | Pharmacy Progress Note ---
Pharmacy Glycemic Short Note 2 Date of Service Jul 14, 2017. OUTPATIENT ANTIDIABETIC REGIMEN: * Lantus 10 units qPM plus Novolog 10 units TIDM ASSESSMENT: * Ms Gunter is a 81 y/o F with a PMH of neuropathy, CAD, and CHF who presented with weakness possibly from hypoglycemia. The patient has required around 20 units of insulin while here. Yesterday blood sugars ranged from 63-127 mg/L and she received 26 units of insulin (all prandial). Fasting blood sugar is 160 mg/ dL today. * The patient's Lantus dose was held x 4 days since the patient had low blood sugars. (Received 8 units on 07/09/17 and none on 07/10-07/14). Restart at half of the dose since the patient's fasting blood sugar is much higher than yesterday. Hopefully this will stabilize the patient's fluctuating blood sugars. * Over the past several days, the patient has suffered from Novolog stacking at lunch. Carbohydrate ratio loosen to 15 today plus correction factor loosened to 35. At lunch patient's blood sugar was 306 mg/dL but the patient receive cosyntropin. Loosened correction factor even more to prevent stacking again. Tightened back to previous values for dinner. PLAN FOR INPATIENT GLYCEMIC CONTROL: * Basal insulin * Lantus 4 units SQ HS * Bolus insulin * NovoLog per scale ACHS or Q6hrs while NPO * Goal Range: Low 110 mg/dL - High 140 mg/dL * Correction Factor: 35 mg/dL/unit * Nutritional / Prandial insulin per carb ratio of 1 unit per 15 grams CHO consumed PLAN FOR DISCHARGE: * Patient has significant non-compliance at home ... recommend counseling on the importance of compliance and starting with Lantus 5 units at bedtime. May titrate upwards as appropriate.
--- NOTE | 2017-07-14 20:27 | Progress Note ---
Medicine Progress Note Date & Time of Visit: Jul 14, 2017 at 11:20 . Subjective CC: Follow-up visit for multiple problems. HPI: No chest pain, palpitations, dyspnea. Mild nausea this morning; no emesis. No diarrhea. No dysuria. Upper extremities feel stronger today. ROS: General- no fever, no chills Resp- no cough; no shortness of breath Cardiac- as noted above in HPI GI- as noted above in HPI - as noted above in HPI . Objective Last 8 Hrs Date Time Temp Pulse Resp B/P (MAP) Pulse Ox O2 Delivery O2 Flow Rate FiO2 07/14/17 20:17 36.8 71 16 108/59 (75) 97 Room Air 07/14/17 16:00 Room Air 07/14/17 15:33 37.0 68 16 101/56 (71) 96 Room Air Physical Exam: General- sitting in chair; no distress Lungs- clear to auscultation; no respiratory distress Cardiovascular- RRR; II/ systolic murmur LSB; no diastolic murmur appreciated ; no gallop; no JVD; 2+ pretibial edema Abdomen- + bowel sounds, soft, nontender Extremities- no cyanosis; no calf tenderness; compression stockings applied to lower extremities Neuro- alert, oriented Skin- warm & dry . Laboratory Results: Last 24 Hours Test 07/13/17 20:46 07/14/17 00:25 07/14/17 05:55 07/14/17 07:15 Bedside Glucose 101 mg/dl 135 mg/dl 143 mg/dl 181 mg/dl Test 07/14/17 07:55 07/14/17 11:21 07/14/17 16:34 Sodium Level 140 mmol/L Potassium Level 4.9 mmol/L Chloride Level 107 mmol/L Carbon Dioxide Level 27 mmol/L Anion Gap 6.0 mmol/L Blood Urea Nitrogen 26 mg/dl Creatinine 1.26 mg/dl Est Creatinine Clear Calc Drug Dose 37.0 ml/min Estimated GFR () 46.9 Estimated GFR (Non- 40.5 BUN/Creatinine Ratio 20.4 Random Glucose 160 mg/dl Calcium Level 7.8 mg/dl Cortisol Response to Stimulation Cortisol Baseline Bedside Glucose 306 mg/dl 251 mg/dl Assessment & Plan SYNCOPE Etiology uncertain. Possibilities include hypoglycemia, orthostasis, arrhythmia, UTI. Specific problems discussed below. Continue to monitor for arrhythmias. CORONARY ARTERY DISEASE No anginal symptoms. CPK slightly elevated- probably from fall. Troponin negative. Continue aspirin, carvedilol, statin. CHRONIC LEFT VENTRICULAR DIASTOLIC HEART FAILURE Appears to be compensated. BP's relatively low / orthostatic. Holding torsemide. Follow and titrate diuretics. 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 Last echo June 2016. Recheck echo to reassess valve status and LV function in light of symptoms and relatively low blood pressures. HYPERTENSION BP's relatively low. Orthostatic. Stopped hydralazine. Continue carvedilol. Follow and titrate Rx. ORTHOSTATIC HYPOTENSION Diuretics held. Hydralazine discontinued. ACTH stim test results: cortisol time (0) 9.6 --> (60 min) 23 --> (90 min) 26. CKD III / CUTE KIDNEY INJURY Serum creatinine at time of admission 1.75. Received IV fluids. Creatinine today = 1.26. Follow. DM TYPE 2 Not always well-controlled at home. Hgb A1C = 12.2. Possible hypoglycemia at home night of admission. Measured blood sugar at home reportedly 85. Random blood sugar upon arrival to ED was 176. Pharmacy consulted for glycemic management. Lantus discontinued due to recurrent episodes of hypoglycemia. FBS this morning = 181. Follow and titrate Rx. Anticipate modification of home routine. Diabetes education. UTI (present on admission) UA showed + leukocyte esterase, many WBC's, many epithelial cells, 1+ bacteria. IV ceftriaxone pending final culture report. Urine culture growing gram negative bacilli. Transitioned to oral therapy with TMP/sulfa. NAUSEA / WT LOSS Patient reports 30 lb weight loss associated with anorexia and nausea. May have gastroparesis or other pathology. GI consulted. EGD 07/09 only showed gastritis. Gastric emptying scan 07/10 was normal. Try to avoid / adjust meds that might cause nausea (e.g., Fe, sertraline). Consider CT abdomen and pelvis to rule out malignancy. VTE PROPHYLAXIS SQ enoxaparin. Ambulate. DISPOSITION To be determined. Family Medicine follow-up with Dr. Adams. . Current Inpatient Medications: Current Inpatient Medications Medications (Trade) Dose Ordered Sig/Ethel Route Start Time Stop Time Status Last Admin Dose Admin Acetaminophen (Tylenol Tab) 650 mg Q4H PRN PO 07/07/17 16:30 3/6/18 16:29 07/12/17 22:10 650 MG Al Hydrox/Mg Hydrox/Simethicone (Maalox Max Susp) 15 ml Q4H PRN PO 07/07/17 16:30 08/06/17 16:29 Magnesium Hydroxide (Milk Of Magnesia Susp) 30 ml Q12H PRN PO 07/07/17 16:30 08/06/17 16:29 07/11/17 09:06 30 ML Ondansetron HCl (Zofran Inj) 4 mg Q6H PRN IV 07/07/17 16:30 08/06/17 16:29 Glucose (Glucose 40% Gel) 15-30 GRAMS 15 GRAMS... UD PRN PO 07/07/17 16:30 08/06/17 16:29 07/12/17 16:58 30 GM Glucose (Glucose Chew Tab) 4-8 Tablets 4 Tabl... UD PRN PO 07/07/17 16:30 08/06/17 16:29 Dextrose (Dextrose 50% 50ML Syringe) 25-50ML OF 50% DW IV FOR... UD PRN IV 07/07/17 16:30 08/06/17 16:29 07/10/17 03:27 50 ML Glucagon (Glucagon Inj) 1 mg UD PRN SQ 07/07/17 16:30 08/06/17 16:29 Aspirin (Aspirin Chew) 81 mg QAM PO 07/08/17 09:00 08/07/17 08:59 07/14/17 09:53 81 MG Carvedilol (Coreg Tab) 25 mg BID PO 07/07/17 21:00 08/06/17 20:59 07/14/17 09:50 25 MG Fexofenadine HCl (Telma Tab) 180 mg HS PO 07/07/17 21:00 08/06/17 20:59 07/13/17 21:06 180 MG Levothyroxine Sodium (Synthroid Tab) 200 mcg DAILYBB PO 07/08/17 06:30 08/07/17 06:59 07/13/17 06:06 200 MCG Loratadine (Claritin Tab) 10 mg QAM PO 07/08/17 09:00 08/07/17 08:59 07/14/17 09:51 10 MG Magnesium Oxide (Mag-Ox Tab) 400 mg BID PO 07/07/17 21:00 3/6/18 20:59 07/14/17 09:49 400 MG Pantoprazole Sodium (Protonix Tab) 40 mg QAM PO 07/08/17 09:00 08/07/17 08:59 07/14/17 09:49 40 MG Simvastatin (Zocor Tab) 10 mg QPM PO 07/07/17 21:00 08/06/17 20:59 07/13/17 21:06 10 MG Tramadol HCl (Ultram Tab) 50 mg Q8H PRN PO 07/07/17 16:30 08/06/17 16:29 07/13/17 08:10 50 MG Cholecalciferol (Vitamin D Tab) 2,000 inter.unit DAILY PO 07/08/17 09:00 08/07/17 08:59 07/14/17 09:51 2,000 INTER.UNIT Insulin Aspart (novoLOG ASPART) SLIDING SCALE If C... ACHS SC 07/07/17 18:00 08/06/17 17:59 07/14/17 17:21 9 UNITS Miscellaneous Information (Consult Glycemic Management Pharmacy) 1 ea UD PRN N/A 07/07/17 16:45 08/06/17 16:44 Sertraline HCl (Zoloft Tab) 50 mg QAM PO 07/10/17 09:00 08/09/17 08:59 07/14/17 09:50 50 MG Docusate Sodium (coLACE CAP) 100 mg BID PO 07/11/17 10:00 08/10/17 09:59 07/13/17 21:05 100 MG Senna/Docusate Sodium (Senokot S Tab) 2 tab BID PO 07/11/17 21:00 08/10/17 20:59 07/13/17 21:06 2 TAB Sodium Biphosphate/ Sodium Phosphate (Fleet Enema) 132 ml DAILY PRN [place] 07/12/17 09:00 08/11/17 08:59 Enteral Nutritional Formula (Boost Glucose Control) 1 can TIDM PO 07/11/17 12:00 08/10/17 11:59 07/14/17 17:22 1 CAN Multi-Ingredient Ointment (Eucerin Unscented Cr) 1 appln BID PRN EXT 07/11/17 12:00 08/10/17 11:59 Trimethoprim/ Sulfamethoxazole (Septra 400/80MG Tab) 1 tab BID PO 07/12/17 09:00 07/17/17 08:59 07/14/17 09:49 1 TAB Enoxaparin Sodium (Lovenox Inj) 40 mg DAILY SQ 07/13/17 09:00 08/12/17 08:59 07/14/17 09:49 40 MG Insulin Glargine (Lantus Solostar Pen) SEE PROTOCOL TEXT HS SC 07/14/17 21:00 08/13/17 20:59
[2017-07-14] MEDS: SIMVASTATIN 10 MG TAB PO SCH (20:29)
[2017-07-14] MEDS: FEXOFENADINE HCL 180 MG TAB PO SCH (20:30)
[2017-07-14] MEDS: INSULIN GLARGINE SOLOSTAR 100 UNITS/ML 3 ML PEN SC SCH (20:57)
[2017-07-14] MEDS ORDERED: INSULIN GLARGINE SOLOSTAR 100 UNITS/ML 3 ML PEN SC SCH (21:00)
[2017-07-15] VITALS (10 sets, daily range): BP systolic 100–156; BP diastolic 58–81; PULSE 64–83; TEMP 36.6–36.9; O2SAT 94–100
[2017-07-15] MEDS: LEVOTHYROXINE 200 MCG TAB PO SCH (06:16)
[2017-07-15 07:20] LABS: HEMATOCRIT 28.8 % (37-47); HEMOGLOBIN 9.6 g/dL (12.0-16.0); MEAN CELL VOLUME 92.9 fL (80-100); MEAN CORPUSCULAR HGB CONC 33.3 g/dl (32-36); MEAN PLATELET VOLUME 9.5 fL (7.4-10.4); PLATELET COUNT 219 K/uL (130-400); RED CELL DISTRIBUTION WIDTH CV 14.7 % (11.5-14.5); RED CELL DISTRIBUTION WIDTH SD 50.3 fL (36.4-46.3); WHITE BLOOD COUNT 5.79 K/uL (4.8-10.8)
[2017-07-15 07:48] LABS: CREATININE 1.49 mg/dl (0.60-1.20)
[2017-07-15 07:49] LABS: CALCIUM 7.6 mg/dl (8.5-10.1); POTASSIUM 4.5 mmol/L (3.5-5.1)
[2017-07-15] MEDS: MAGNESIUM OXIDE 400 MG TAB PO SCH ×2 (08:02→21:18)
[2017-07-15] MEDS: SULFAMETHOXAZOLE/TRIMETHOPRIM 400/80MG TAB PO SCH ×2 (08:03→21:18)
[2017-07-15] MEDS: ASPIRIN 81 MG CHEW PO SCH (08:03)
[2017-07-15] MEDS: CARVEDILOL 25 MG TAB PO SCH ×2 (08:03→21:18)
[2017-07-15] MEDS: LORATADINE 10 MG TAB PO SCH (08:04)
[2017-07-15] MEDS: PANTOprazole SOD 40 MG TAB PO SCH (08:04)
[2017-07-15] MEDS: DOCUSATE SODIUM 100 MG CAP PO SCH ×2 (08:04→21:17)
[2017-07-15] MEDS: CHOLECALCIFEROL 1000 INTER.UNIT TAB PO SCH (08:04)
[2017-07-15] MEDS: SERTRALINE HCL 50 MG TAB PO SCH (08:05)
[2017-07-15] MEDS: DOCUSATE SODIUM/SENNA 50/8.6MG TAB PO SCH ×2 (08:05→21:18)
[2017-07-15] MEDS: ENOXAPARIN 40 MG/0.4 ML SYR SQ SCH (08:06)
[2017-07-15] MEDS: BOOST GLUCOSE CONTROL PO SCH ×3 (08:06→17:00)
[2017-07-15] MEDS: INSULIN ASPART 100 UNITS/ML 3 ML PEN SC SCH ×4 (08:42→21:00)
[2017-07-15] MEDS ORDERED: MICONAZOLE NITRATE POWDER 43 GM EXT PRN (08:45)
[2017-07-15] MEDS ORDERED: NURSING DECISION MEDICATION ORDER SCH (08:45)
--- NOTE | 2017-07-15 16:10 | ECHOCARDIOGRAM REPORT ---
*NOTICE TO RECEIVING LIBERTARIAN AGENCY This information is strictly Confidential and protected under [place] law. [place] law prohibits you from making any further disclosure of this information unless further disclosure is expressly permitted by the written consent of the person to whom it pertains or is authorized by law. A general authorization for the release of medical or other information is not sufficient for this purpose. Hospital accepts no responsibility if the information is made available to any other person, INCLUDING THE PATIENT. Interpretation Summary * Name: REGINE ALMENDAREZ Study Date: 07/15/2017 06:32 AM BP: 120/68 mmHg * Patient Location: [facility]\S\N289\S\1 HR: 73 * : 1935 (M/d/yyyy) Gender: Female Height: 62 in * Age: 81 yrs Ethnicity: [place] Weight: 190 lb * Ordering Physician: Fletcher Farfan * Referring Physician: Self, Referred * Performed By: Renita Connelly RDCS * * Reason For Study: Murmurs * BSA: 1.9 m2 * The study was technically adequate. * Compared to prior study, changes are noted. * -- Conclusions -- * Ejection Fraction = 65-70%. * There is mild concentric left ventricular hypertrophy. * The left atrium is moderately dilated. * Mild aortic regurgitation. * There is a prior mitral valve repair and annuloplasty ring. * The anterior leaflet is thickened and mobile while the posterior leaflet is calcified with severely reduced mobility. * There is mild mitral stenosis. * Significant mitral regurgitation is absent. * There is moderate tricuspid regurgitation. * The estimated systolic PAP is 47mmHg. Procedure Details * A complete two-dimensional transthoracic echocardiogram was performed (2D, M-mode, Doppler and color flow Doppler). Left Ventricle * The left ventricle is normal in size. * There is mild concentric left ventricular hypertrophy. * Ejection Fraction = 65-70%. * Left ventricular systolic function is normal. * The left ventricular wall motion is normal. Right Ventricle * The right ventricle is normal size. * The right ventricular systolic function is normal as assessed by tricuspid annular plane systolic excursion (TAPSE) (normal >1.5 cm). Atria * The left atrium is moderately dilated. * Right atrial size is normal. * There is no evidence of atrial septal defect, but resolution does not allow assessment for a patent foramen ovale. Mitral Valve * The mitral valve is normal. * There is mild mitral stenosis. * The anterior leaflet is thickened and mobile while the posterior leaflet is calcified with severely reduced mobility. * Significant mitral regurgitation is absent. * There is a prior mitral valve repair and annuloplasty ring. Tricuspid Valve * The tricuspid valve is normal. * There is no tricuspid stenosis. * There is moderate tricuspid regurgitation. * The estimated systolic PAP is 47mmHg. Aortic Valve * The aortic valve is trileaflet. * Aortic stenosis is absent. * Mild aortic regurgitation. Pulmonic Valve * The pulmonary valve is not well seen, but the Doppler examination is normal without significant regurgitation or stenosis. Great Vessels * The aortic root is normal size. Pericardium/Pleural * There is no pericardial effusion. Great Vessels * Normal inferior vena cava diameter and respiratory variation suggests normal central venous pressure. Left Ventricular Diastolic Function * Diastolic dysfunction, Grade II (pseudonormalization pattern). MMode 2D Measurements and Calculations IVSd 1.0 cm IVSs 1.1 cm LVIDd 3.6 cm LVIDs 2.3 cm LVPWd 0.91 cm LVPWs 1.4 cm IVS/LVPW 1.2 FS 35.4 % EDV(Teich) 55.4 ml ESV(Teich) 19.0 ml EF(Teich) 65.7 % EDV(cubed) 47.7 ml ESV(cubed) 12.9 ml EF(cubed) 73.0 % % IVS thick 4.2 % % LVPW thick 56.3 % LV mass(C)d 105.4 grams LV mass(C)dI 56.3 grams/m\S\2 LV mass(C)s 84.8 grams LV mass(C)sI 45.3 grams/m\S\2 SV(Teich) 36.4 ml SI(Teich) 19.5 ml/m\S\2 SV(cubed) 34.8 ml SI(cubed) 18.6 ml/m\S\2 Ao root diam 2.7 cm Ao root area 5.7 cm\S\2 ACS 1.8 cm LA dimension 4.8 cm LA/Ao 1.8 LVOT diam 1.9 cm LVOT area 2.7 cm\S\2 LVAd ap4 26.9 cm\S\2 LVLd ap4 8.0 cm EDV(MOD-sp4) 75.8 ml EDV(sp4-el) 76.9 ml LVAs ap4 14.0 cm\S\2 LVLs ap4 6.9 cm ESV(MOD-sp4) 25.4 ml ESV(sp4-el) 24.4 ml EF(MOD-sp4) 66.4 % EF(sp4-el) 68.2 % LVAd ap2 21.2 cm\S\2 LVLd ap2 8.1 cm EDV(MOD-sp2) 47.0 ml EDV(sp2-el) 47.0 ml LVAs ap2 10.0 cm\S\2 LVLs ap2 6.5 cm ESV(MOD-sp2) 13.6 ml ESV(sp2-el) 12.9 ml EF(MOD-sp2) 71.1 % EF(sp2-el) 72.5 % LVLd %diff 0.93 % EDV(MOD-bp) 59.7 ml LVLs %diff -4.91 % ESV(MOD-bp) 18.7 ml EF(MOD-bp) 68.7 % SV(MOD-sp4) 50.4 ml SI(MOD-sp4) 26.9 ml/m\S\2 SV(MOD-sp2) 33.4 ml SI(MOD-sp2) 17.9 ml/m\S\2 SV(MOD-bp) 41.0 ml SI(MOD-bp) 21.9 ml/m\S\2 SV(sp4-el) 52.5 ml SI(sp4-el) 28.1 ml/m\S\2 SV(sp2-el) 34.1 ml SI(sp2-el) 18.2 ml/m\S\2 Doppler Measurements and Calculations MV E max jacqui 183.7 cm/sec MV A max jacqui 87.2 cm/sec MV E/A 2.1 MV V2 max 204.8 cm/sec MV max PG 16.8 mmHg MV V2 mean 115.1 cm/sec MV mean PG 6.2 mmHg MV V2 VTI 61.2 cm MV P1/2t max jacqui 211.9 cm/sec MV P1/2t 115.0 msec MVA(P1/2t) 1.9 cm\S\2 MV dec slope 539.6 cm/sec\S\2 MV dec time 0.33 sec Ao V2 max 155.5 cm/sec Ao max PG 9.7 mmHg Ao max PG (full) 4.7 mmHg BLACK(V,A) 2.0 cm\S\2 BLACK(V,D) 2.0 cm\S\2 AI max jacqui 311.8 cm/sec AI max PG 38.9 mmHg AI dec slope 272.9 cm/sec\S\2 AI P1/2t 334.7 msec LV V1 max PG 5.0 mmHg LV V1 max 111.9 cm/sec PA V2 max 120.0 cm/sec PA max PG 5.8 mmHg TR max jacqui 325.4 cm/sec
--- NOTE | 2017-07-15 19:34 | Progress Note ---
Medicine Progress Note Date & Time of Visit: Jul 15, 2017 at 18:50 . Subjective CC: Follow-up visit for multiple problems. HPI: Generally feels better. No chest pain, palpitations, dyspnea. Dependent edema worse than baseline. Nausea this morning. No emesis. No diarrhea. No dysuria. ROS: General- no fever, no chills Resp- no cough; no shortness of breath Cardiac- as noted above in HPI GI- as noted above in HPI - as noted above in HPI . Objective Last 8 Hrs Date Time Temp Pulse Resp B/P (MAP) Pulse Ox O2 Delivery O2 Flow Rate FiO2 07/15/17 15:55 36.6 81 18 145/81 (102) 100 Room Air 07/15/17 12:00 Room Air 07/15/17 11:46 36.7 72 16 106/67 (80) 94 Room Air 80 105/67 (80) 80 125/74 (91) Physical Exam: General- sitting in chair; no distress Lungs- clear to auscultation; no respiratory distress Cardiovascular- RRR; II/ systolic murmur LSB; no diastolic murmur appreciated ; no gallop; no JVD; 2-3+ pretibial edema Abdomen- + bowel sounds, soft, nontender Extremities- no cyanosis; no calf tenderness Neuro- alert, oriented Skin- warm & dry . Laboratory Results: Last 24 Hours Test 07/14/17 20:40 07/15/17 07:03 07/15/17 07:29 07/15/17 11:23 Bedside Glucose 165 mg/dl 153 mg/dl 192 mg/dl White Blood Count 5.79 K/uL Red Blood Count 3.10 M/uL Hemoglobin 9.6 g/dL Hematocrit 28.8 % Mean Corpuscular Volume 92.9 fL Mean Corpuscular Hemoglobin 31.0 pg Mean Corpuscular Hemoglobin Concent 33.3 g/dl RDW Standard Deviation 50.3 fL RDW Coefficient of Variation 14.7 % Platelet Count 219 K/uL Mean Platelet Volume 9.5 fL Sodium Level 140 mmol/L Potassium Level 4.5 mmol/L Chloride Level 108 mmol/L Carbon Dioxide Level 25 mmol/L Anion Gap 7.0 mmol/L Blood Urea Nitrogen 29 mg/dl Creatinine 1.49 mg/dl Est Creatinine Clear Calc Drug Dose 31.3 ml/min Estimated GFR () 38.3 Estimated GFR (Non- 33.1 BUN/Creatinine Ratio 19.6 Random Glucose 129 mg/dl Calcium Level 7.6 mg/dl Test 07/15/17 17:11 Bedside Glucose 93 mg/dl Assessment & Plan SYNCOPE Etiology uncertain. Possibilities include hypoglycemia, orthostasis, arrhythmia, UTI. Specific problems discussed below. Continue to monitor for arrhythmias. CORONARY ARTERY DISEASE No anginal symptoms. CPK slightly elevated- probably from fall. Troponin negative. Continue aspirin, carvedilol, statin. CHRONIC LEFT VENTRICULAR DIASTOLIC HEART FAILURE Appears to be compensated. BP's relatively low / orthostatic. Holding torsemide due to orthostasis and renal disease. Orthostasis improved, edema worse. Resume torsemide at reduced dose of 20 mg daily. 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 Last echo June 2016. Recheck echo to reassess valve status and LV function in light of symptoms and relatively low blood pressures. HYPERTENSION BP's relatively low. Orthostatic. Stopped hydralazine and held torsemide. Continue carvedilol. Follow and titrate Rx. ORTHOSTATIC HYPOTENSION Significant orthostatic hypotension- meds, volume status, diabetic autonomic neuropathy could all be contributing factors. Diuretics held. Hydralazine discontinued. ACTH stim test results: cortisol time (0) 9.6 --> (30 min) 23 --> (60 min) 26. Resume torsemide at reduced dose. CKD III / CUTE KIDNEY INJURY Serum creatinine at time of admission 1.75. Received IV fluids. Creatinine today = 1.49 (increased from yesterday). Follow. DM TYPE 2 Not always well-controlled at home. Hgb A1C = 12.2. Possible hypoglycemia at home night of admission. Measured blood sugar at home reportedly 85. Random blood sugar upon arrival to ED was 176. Pharmacy consulted for glycemic management. Lantus discontinued due to recurrent episodes of hypoglycemia. FBS this morning = 153. Follow and titrate Rx. Anticipate modification of home routine. Diabetes education. UTI (present on admission) UA showed + leukocyte esterase, many WBC's, many epithelial cells, 1+ bacteria. IV ceftriaxone pending final culture report. Urine culture growing gram negative bacilli. Transitioned to oral therapy with TMP/sulfa. NAUSEA / WT LOSS Patient reports 30 lb weight loss associated with anorexia and nausea. May have gastroparesis or other pathology. GI consulted. EGD 07/09 only showed gastritis. Gastric emptying scan 07/10 was normal. Try to avoid / adjust meds that might cause nausea. Iron held (can be administered parenterally if necessary). Sertraline dose decreased to [address] abdomen and pelvis to rule out malignancy. ANEMIA Hgb 14.6 --> --> 9.6. Probably has anemia of chronic disease. Relatively high Hgb at time of admission may have been hemoconcentration and falling Hgb may be hemodilution. Check Fe studies, B12, folate, fecal occult blood. Follow. VTE PROPHYLAXIS SQ enoxaparin. Ambulate. DISPOSITION Skilled care discussed, but patient not interested. Anticipated discharge to home with home health services Family Medicine follow-up with Dr. Adams. . Current Inpatient Medications: Current Inpatient Medications Medications (Trade) Dose Ordered Sig/Ethel Route Start Time Stop Time Status Last Admin Dose Admin Acetaminophen (Tylenol Tab) 650 mg Q4H PRN PO 07/07/17 16:30 08/06/17 16:29 07/12/17 22:10 650 MG Al Hydrox/Mg Hydrox/Simethicone (Maalox Max Susp) 15 ml Q4H PRN PO 07/07/17 16:30 08/06/17 16:29 Magnesium Hydroxide (Milk Of Magnesia Susp) 30 ml Q12H PRN PO 07/07/17 16:30 08/06/17 16:29 07/11/17 09:06 30 ML Ondansetron HCl (Zofran Inj) 4 mg Q6H PRN IV 07/07/17 16:30 08/06/17 16:29 Glucose (Glucose 40% Gel) 15-30 GRAMS 15 GRAMS... UD PRN PO 07/07/17 16:30 08/06/17 16:29 07/12/17 16:58 30 GM Glucose (Glucose Chew Tab) 4-8 Tablets 4 Tabl... UD PRN PO 07/07/17 16:30 08/06/17 16:29 Dextrose (Dextrose 50% 50ML Syringe) 25-50ML OF 50% DW IV FOR... UD PRN IV 07/07/17 16:30 08/06/17 16:29 07/10/17 03:27 50 ML Glucagon (Glucagon Inj) 1 mg UD PRN SQ 07/07/17 16:30 3/6/18 16:29 Aspirin (Aspirin Chew) 81 mg QAM PO 07/08/17 09:00 08/07/17 08:59 07/15/17 08:03 81 MG Carvedilol (Coreg Tab) 25 mg BID PO 07/07/17 21:00 08/06/17 20:59 07/15/17 08:03 25 MG Fexofenadine HCl (Telma Tab) 180 mg HS PO 07/07/17 21:00 08/06/17 20:59 07/14/17 20:30 180 MG Levothyroxine Sodium (Synthroid Tab) 200 mcg DAILYBB PO 07/08/17 06:30 08/07/17 06:59 07/15/17 06:16 200 MCG Loratadine (Claritin Tab) 10 mg QAM PO 07/08/17 09:00 08/07/17 08:59 07/15/17 08:04 10 MG Magnesium Oxide (Mag-Ox Tab) 400 mg BID PO 07/07/17 21:00 08/06/17 20:59 07/15/17 08:02 400 MG Pantoprazole Sodium (Protonix Tab) 40 mg QAM PO 07/08/17 09:00 08/07/17 08:59 07/15/17 08:04 40 MG Simvastatin (Zocor Tab) 10 mg QPM PO 07/07/17 21:00 08/06/17 20:59 07/14/17 20:29 10 MG Tramadol HCl (Ultram Tab) 50 mg Q8H PRN PO 07/07/17 16:30 08/06/17 16:29 07/13/17 08:10 50 MG Cholecalciferol (Vitamin D Tab) 2,000 inter.unit DAILY PO 07/08/17 09:00 08/07/17 08:59 07/15/17 08:04 2,000 INTER.UNIT Insulin Aspart (novoLOG ASPART) SLIDING SCALE If C... ACHS SC 07/07/17 18:00 08/06/17 17:59 07/15/17 18:10 6 UNITS Miscellaneous Information (Consult Glycemic Management Pharmacy) 1 ea UD PRN N/A 07/07/17 16:45 08/06/17 16:44 Sertraline HCl (Zoloft Tab) 50 mg QAM PO 07/10/17 09:00 08/09/17 08:59 07/15/17 08:05 50 MG Docusate Sodium (coLACE CAP) 100 mg BID PO 07/11/17 10:00 08/10/17 09:59 07/15/17 08:04 100 MG Senna/Docusate Sodium (Senokot S Tab) 2 tab BID PO 07/11/17 21:00 08/10/17 20:59 07/15/17 08:05 2 TAB Sodium Biphosphate/ Sodium Phosphate (Fleet Enema) 132 ml DAILY PRN HI 07/12/17 09:00 08/11/17 08:59 Enteral Nutritional Formula (Boost Glucose Control) 1 can TIDM PO 07/11/17 12:00 08/10/17 11:59 07/15/17 17:00 1 CAN Multi-Ingredient Ointment (Eucerin Unscented Cr) 1 appln BID PRN EXT 07/11/17 12:00 08/10/17 11:59 Trimethoprim/ Sulfamethoxazole (Septra 400/80MG Tab) 1 tab BID PO 07/12/17 09:00 07/17/17 08:59 07/15/17 08:03 1 TAB Enoxaparin Sodium (Lovenox Inj) 40 mg DAILY SQ 07/13/17 09:00 08/12/17 08:59 07/15/17 08:06 40 MG Insulin Glargine (Lantus Solostar Pen) SEE PROTOCOL TEXT HS SC 07/14/17 21:00 08/13/17 20:59 Miconazole Nitrate (Desenex Powder) 1 appln UD PRN EXT 07/15/17 08:45 08/14/17 08:44 07/15/17 16:34 1 APPLN
[2017-07-15] MEDS: INSULIN GLARGINE SOLOSTAR 100 UNITS/ML 3 ML PEN SC SCH (21:00)
[2017-07-15] MEDS: GLUCOSE 40% GEL 15 GM TUBE PO PRN (21:07)
[2017-07-15] MEDS: FEXOFENADINE HCL 180 MG TAB PO SCH (21:17)
[2017-07-15] MEDS: SIMVASTATIN 10 MG TAB PO SCH (21:18)
[2017-07-16] VITALS (8 sets, daily range): BP systolic 117–131; BP diastolic 67–78; PULSE 65–71; TEMP 36.3–36.8; O2SAT 97–99
[2017-07-16] MEDS ORDERED: INSULIN ASPART 100 UNITS/ML 3 ML PEN SC SCH (02:00)
[2017-07-16] MEDS: LEVOTHYROXINE 200 MCG TAB PO SCH (06:40)
[2017-07-16 07:46] LABS: HEMATOCRIT 35.6 % (37-47); HEMOGLOBIN 11.1 g/dL (12.0-16.0); MEAN CELL VOLUME 93.4 fL (80-100); MEAN CORPUSCULAR HEMOGLOBIN 29.1 pg (25-34); MEAN CORPUSCULAR HGB CONC 31.2 g/dl (32-36); MEAN PLATELET VOLUME 9.2 fL (7.4-10.4); PLATELET COUNT 280 K/uL (130-400); RED CELL DISTRIBUTION WIDTH CV 14.8 % (11.5-14.5); RED CELL DISTRIBUTION WIDTH SD 50.2 fL (36.4-46.3); WHITE BLOOD COUNT 5.86 K/uL (4.8-10.8)
[2017-07-16] MEDS: MAGNESIUM OXIDE 400 MG TAB PO SCH ×2 (07:48→21:41)
[2017-07-16] MEDS: CARVEDILOL 25 MG TAB PO SCH ×2 (07:48→21:41)
[2017-07-16] MEDS: PANTOprazole SOD 40 MG TAB PO SCH (07:48)
[2017-07-16] MEDS: CHOLECALCIFEROL 1000 INTER.UNIT TAB PO SCH (07:48)
[2017-07-16] MEDS: SERTRALINE HCL 50 MG TAB PO SCH (07:48)
[2017-07-16] MEDS: SULFAMETHOXAZOLE/TRIMETHOPRIM 400/80MG TAB PO SCH (07:49)
[2017-07-16] MEDS: ASPIRIN 81 MG CHEW PO SCH (07:49)
[2017-07-16] MEDS: LORATADINE 10 MG TAB PO SCH (07:49)
[2017-07-16] MEDS: ENOXAPARIN 40 MG/0.4 ML SYR SQ SCH (07:50)
[2017-07-16] MEDS: BOOST GLUCOSE CONTROL PO SCH ×3 (08:02→17:47)
[2017-07-16 08:14] LABS: ALBUMIN 1.9 gm/dl (3.4-5.0); CALCIUM 8.2 mg/dl (8.5-10.1); CREATININE 1.59 mg/dl (0.60-1.20); POTASSIUM 4.8 mmol/L (3.5-5.1)
[2017-07-16 08:20] LABS: TOTAL PROTEIN 5.4 gm/dl (6.4-8.2)
[2017-07-16] MEDS: INSULIN ASPART 100 UNITS/ML 3 ML PEN SC SCH ×4 (08:37→21:48)
[2017-07-16] MEDS: DOCUSATE SODIUM 100 MG CAP PO SCH ×2 (08:39→21:00)
[2017-07-16] MEDS: DOCUSATE SODIUM/SENNA 50/8.6MG TAB PO SCH ×2 (08:39→21:00)
--- NOTE | 2017-07-16 11:49 | DIAGNOSTIC IMAGING REPORT ---
ABD/PELVIS ORAL CONT ONLY CT DOSE: 725.63 mGy.cm HISTORY: Pain weight loss, diabetic with labile blood sugars TECHNIQUE: Multiaxial CT images of the abdomen and pelvis were performed following the use of oral contrast. A dose lowering technique was utilized adhering to the principles of ALARA. COMPARISON STUDY: 11/03/2015 FINDINGS: Chronic bibasilar pleural thickening and small right and to a lesser extent loculated pleural effusion. This is improved from the prior exam. Stable pneumobilia and biliary ductal prominence on a postoperative basis. This is unchanged as well. Kidneys negative for hydronephrosis. Spleen is unremarkable. Bowel pattern within the abdomen and pelvis is considered nonobstructive. Bladder is midline. There is a mild fecal impaction. Postoperative changes of left inguinal region are stable. Several small nodes are present unchanged in the prior study. Interval development of mild body wall anasarca. IMPRESSION: 1. Interval development of mild/moderate body wall anasarca. 2. Improved basilar atelectatic and loculated effusion-type changes compared to the prior study. 3. Stable postoperative intra-abdominal findings with no acute recurrent process of the abdomen or pelvis. 4. Mild rectal fecal impaction. The above report was generated using voice recognition software. It may contain grammatical, syntax or spelling errors. Electronically signed by: Vj Rinaldi M.D. 07/16/2017 11:48 AM Dictated Date/Time: 07/16/2017 11:39 AM
[2017-07-16] MEDS: TORSEMIDE 20 MG TAB PO SCH (12:00)
--- NOTE | 2017-07-16 13:15 | Pharmacy Progress Note ---
Pharmacy Glycemic Short Note 2 Date of Service Jul 16, 2017. OUTPATIENT ANTIDIABETIC REGIMEN: * Lantus 10 units qPM plus Novolog 10 units TIDM ASSESSMENT: * Patient has been requiring ~ 20-25 units of insulin per day with labile control * Patient with recurrent hypo on 07/12 & 07/13 prior to dinner. Therefore, CF/CR were "loosened" to prevent further hypo. Lantus was also discontinued/held. Lantus has not been needed since. * Pt with hypo again last evening prior to bedtime due to large dose of NovoLog given with dinner. * To prevent further hypo from NovoLog will adjust CF/CR based on the meal * Pre-lunch BSG tends to be the highest BSG of the day. Then, patient receives a large dose of NovoLog with lunch because the BSG is elevated which results in low BSG at dinner or HS * Will keep breakfast CF/CR slightly more aggressive to prevent severe BSG rise prior to lunch * Will loosen CF/CR with lunch, dinner, and HS to prevent over-correction and subsequent hypoglycemia PLAN FOR INPATIENT GLYCEMIC CONTROL: * Basal insulin * Continue to hold - no longer needed as AM fasting BSG is in goal range without * Bolus insulin * NovoLog per scale ACHS or Q6hrs while NPO Breakfast: * Goal Range: Low 110 mg/dL - High 150 mg/dL * Correction Factor: 35 mg/dL/unit * Nutritional / Prandial insulin per carb ratio of 1 unit per 15 grams CHO consumed Lunch, Dinner, and HS: * Goal Range: Low 120 mg/dL - High 180 mg/dL * Correction Factor: 40 mg/dL/unit * Nutritional / Prandial insulin per carb ratio of 1 unit per 20 grams CHO consumed
--- NOTE | 2017-07-16 14:03 | CARDIOLOGY CONSULTATION ---
DATE OF CONSULTATION: 07/16/2017 REFERRING PHYSICIAN: Dr. Fletcher Farfan. CHIEF COMPLAINT ON ADMISSION: Syncope. HISTORY OF PRESENT ILLNESS: Ms. Gunter is a 81-year-old female with a history of mitral valve repair, nonobstructive CAD, diastolic heart failure, presented to the Emergency Department on 07/07/2017 with an episode of syncope. The patient does not believe the event was related to hypoglycemia as she had no prodromal symptoms of perioral numbness which is a system she is familiar with. At this point, she feels her blood pressure likely dropped. During hospitalization, patient was found to be volume depleted and orthostatic. Diuretics and hydralazine placed on hold. The dizziness has resolved. Creatinine trending upward today. Denies chest pain or unusual shortness of breath. No orthopnea or PND. Lower extremity edema has been gradually increasing over the past few days. Denies orthopnea or PND. Offers no other complaints at this time. REVIEW OF SYSTEMS: The pertinent positive noted above, a comprehensive 10-system review is otherwise negative. PAST MEDICAL HISTORY: 1. Mitral regurgitation due to prolapse of P2 segment, status post minimally invasive mitral valve repair in 12/05/2012. 2. Patent foramen ovale status post surgical closure. 3. Cardiac catheterization in 2011 demonstrating minimal nonobstructive CAD, mild pulmonary hypertension. 4. Recurrent pleural effusions requiring multiple thoracenteses. 5. Chronic diastolic heart failure. 6. Chronic lymphedema. 7. Rheumatic fever as a child. 8. Diabetes type 2. 9. Hypertension. 10. Dyslipidemia. 11. Hypothyroidism. 12. Depression. 13. CKD stage III. 14. GERD. 15. Diaphragmatic hernia. 16. Osteoporosis. 17. Dental surgery. 18. Hysterectomy. 19. Cholecystectomy. 20. Bilateral cataract extraction. PAST SURGICAL HISTORY: 1. Active put cataract extraction. 2. Cholecystectomy. 3. Hysterectomy. 4. Mitral valve placement. 5. Cardiac catheterization. SOCIAL HISTORY: Lifelong nonsmoker with significant secondhand smoke exposure for both her mother and father. 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 FAMILY HISTORY: Father at age 59 secondary to motor vehicle accident. Mother at age 74, possibly myocardial infarction. One brother has had valvular surgery. ALLERGIES: No known drug allergies. CURRENT OUTPATIENT MEDICATIONS: 1. 1. Aspirin 81 mg daily. 2. Carvedilol 25 mg twice daily. 3. Vitamin D3 daily. 4. Ferrous sulfate twice daily. 5. Hydralazine 25 mg t.i.d. 6. Insulin FlexPen 16 units b.i.d. 7. Glargine 10 units q.p.m. 8. Synthroid daily. 9. Claritin daily. 10. Protonix daily. 11. Zoloft daily. 12. Simvastatin 10 mg daily. 13. Demadex 20 mg twice daily. 14. Atrovent as needed. 15. Zofran as needed. 16. Tramadol as needed. CURRENT MEDICATIONS: Reviewed: Significant cardiac changes: 1. Torsemide reduced to 20 mg daily. 2. Carvedilol continue 25 mg twice daily. 3. Simvastatin continue 10 mg daily. 4. Hydralazine on hold. IMAGING DATA: ECG performed on 07/08/2016 within normal limits with prolonged QT. EGD demonstrated gastritis on 07/09/2017. LABORATORY DATA: White blood cell count 5.86, hemoglobin is 11.1, platelet count is 280. Sodium 139, potassium 4.9, chloride 102, CO2 25, BUN is 27, creatinine is 1.59 and glucose 138. Telemetry demonstrates sinus rhythm, occasional PVCs. PHYSICAL EXAMINATION: VITAL SIGNS: Temperature 36.6 degrees centigrade, pulse 71 beats per minute and regular, respiratory rate is 18 breaths per minute, blood pressure 129/67. SAO2 is 97% on room air. GENERAL: NAD, awake, alert and oriented x3. Pleasant and cooperative. HEENT: Her mucous membranes are moist. No scleral icterus. Conjunctivae pink. NECK: Supple without JVD in upright position. No carotid bruit. HEART: Regular with a 1/6 diastolic murmur heard best at the left sternal border. LUNGS: Clear without rales, rhonchi or wheeze. ABDOMEN: Soft, nontender. No rebound or guarding. EXTREMITIES: Warm and dry with +1 bilateral pedal and pretibial edema. NEUROLOGIC: Demonstrates no focal deficit. FINAL IMPRESSION: 1. A 81-year-old female admitted with syncope secondary to presumed orthostasis. Hydralazine and diuretics held during hospitalization. The patient notes mildly progressive edema over the past few days. No other signs or symptoms of decompensated heart failure. 2. Mitral valve prolapse status post minimally invasive mitral valve repair. Repeat echocardiogram demonstrates mild mitral stenosis without significant regurgitation and preserved left ventricular systolic function. 3. Acute renal insufficiency superimposed on chronic kidney disease stage III -- trending upward. 4. Hypertension -- well controlled, hydralazine on hold. 5. History of minimal nonobstructive coronary artery disease. 6. Diabetes type 2. 7. Urinary tract infection -- treated. 8. Anemia. PLAN AND RECOMMENDATIONS: The patient will require maintenance diuretic therapy, although this will have to be reinstated cautiously given decline in renal function. Agree with Demadex 20 mg once daily to begin tomorrow. The patient may take an additional 20 mg with worsening edema on an as needed basis. Encourage compliance with compression stockings, leg elevation, and sodium restriction. She does have a history of lymphedema and may benefit from a referral to physical therapy for treatment in the future. Hydralazine will remain on hold. Continue carvedilol at current dose in addition to aspirin and statin therapy. No further inpatient cardiac testing or intervention. Thank you for allowing me to participate in the care of your patient.
--- NOTE | 2017-07-16 19:12 | Progress Note ---
Medicine Progress Note Date & Time of Visit: Jul 16, 2017 at 18:43. Subjective Pt was seen and examined Sitting in chair with no distress Pt said that she feels much better She refused to go to inpatient rehab or skills facility for therapy She denies any chest pain, palpitation, dizziness and SOB Objective Last 8 Hrs Date Time Temp Pulse Resp B/P (MAP) Pulse Ox O2 Delivery O2 Flow Rate FiO2 07/16/17 16:00 Room Air 07/16/17 15:14 36.7 65 18 117/69 (85) 99 07/16/17 12:23 36.7 69 16 118/71 (87) 97 07/16/17 12:22 97 Room Air 07/16/17 12:00 Room Air Physical Exam: General- No acute distress Head- atraumatic Eyes- PERRL, EOMI ENT- oropharynx clear Neck- supple, no JVD Lungs- No wheezing Heart- regular rhythm Abdomen- normal bowel sounds, soft Extremities- no calf tenderness Neuro- alert, oriented x 3; PERRL, EOMI Laboratory Results: Last 24 Hours Test 07/15/17 21:01 07/15/17 21:40 07/16/17 01:56 07/16/17 07:27 Bedside Glucose 59 mg/dl 94 mg/dl 140 mg/dl 143 mg/dl Test 07/16/17 07:31 07/16/17 11:20 07/16/17 16:37 07/16/17 16:40 White Blood Count 5.86 K/uL Red Blood Count 3.81 M/uL Hemoglobin 11.1 g/dL Hematocrit 35.6 % Mean Corpuscular Volume 93.4 fL Mean Corpuscular Hemoglobin 29.1 pg Mean Corpuscular Hemoglobin Concent 31.2 g/dl RDW Standard Deviation 50.2 fL RDW Coefficient of Variation 14.8 % Platelet Count 280 K/uL Mean Platelet Volume 9.2 fL Sodium Level 139 mmol/L Potassium Level 4.8 mmol/L Chloride Level 107 mmol/L Carbon Dioxide Level 25 mmol/L Anion Gap 6.0 mmol/L Blood Urea Nitrogen 27 mg/dl Creatinine 1.59 mg/dl Est Creatinine Clear Calc Drug Dose 29.5 ml/min Estimated GFR () 35.4 Estimated GFR (Non- 30.6 BUN/Creatinine Ratio 16.7 Random Glucose 138 mg/dl Calcium Level 8.2 mg/dl Iron Level 80 mcg/dl Total Iron Binding Capacity 109 mcg/dl Transferrin 66 mg/dl Transferrin % Saturation 87 % Ferritin 1019.4 ng/ml Total Bilirubin 0.3 mg/dl Aspartate Amino Transf (AST/SGOT) 29 U/L Alanine Aminotransferase (ALT/SGPT) 35 U/L Alkaline Phosphatase 68 U/L Total Protein 5.4 gm/dl Albumin 1.9 gm/dl Globulin 3.5 gm/dl Albumin/Globulin Ratio 0.5 Vitamin B12 Level 954 pg/mL 25-Hydroxy Vitamin D Total 35.2 ng/ml Folate 15.84 ng/mL Bedside Glucose 291 mg/dl 327 mg/dl 314 mg/dl Assessment & Plan SYNCOPE Etiology unknown Possibilities related to hypoglycemia vs orthostasis vs UTI. CT head on admission showed no acute intracranial abnormality. Stable CORONARY ARTERY DISEASE Denied any chest pain. Continue aspirin, carvedilol, statin. Stable CHRONIC LEFT VENTRICULAR DIASTOLIC HEART FAILURE No in acute failure Torsemide was on hold due to elevate creatine torsemide resumed yesterday from BID to daily today Cardiology on board, recommended to resume the torsemide and continue to hold hydralazine Will monitor BMP closely ECHO showed * Ejection Fraction = 65-70%. * There is mild concentric left ventricular hypertrophy. * The left atrium is moderately dilated. * Mild aortic regurgitation. * There is a prior mitral valve repair and annuloplasty ring. * The anterior leaflet is thickened and mobile while the posterior leaflet is calcified with severely reduced mobility. * There is mild mitral stenosis. * Significant mitral regurgitation is absent. * There is moderate tricuspid regurgitation. 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 Stable HYPERTENSION BP control Continue holding hydralazine Continue carvedilol and torsemide resolved Continue monitor BP ORTHOSTATIC HYPOTENSION ACTH stim test results: cortisol time (0) 9.6 --> (30 min) 23 --> (60 min) 26. Torsemide resumed daily Stable CKD III / CUTE KIDNEY INJURY Serum creatinine at time of admission 1.75. Elevated CK on admission due to fall Creatinine increased from 1.49 to 1.59 Avoid nephrotoxic agents Will monitor closely since torsemide resume DM TYPE 2 Uncontrolled Hgb A1C = 12.2. Pharmacy consulted for glycemic management. Continue monitor BS UTI UA showed leukocyte esterase, many WBC's, many epithelial cells, 1+ bacteria. Final urine cx growth citrobacter Feundii complex E. Coli Completed TMP/sulfa course. NAUSEA / WT LOSS Patient reports 30 lb weight loss associated with anorexia and nausea.. GI consulted. HAD EGD done 07/09 that showed gastritis. Gastric emptying scan 07/[address] abdominal/pelvis with oral contrast showed no acute abnormality ANEMIA Hgb 11.1 today No signs of active bleeding Continue monitor VTE PROPHYLAXIS SQ enoxaparin. Ambulate. DISPOSITION Refused to go to Skilled care or rehab for inpatient therapy Anticipated discharge to home with home health services possible tomorrow Family Medicine follow-up with Dr. Adams. Current Inpatient Medications: Current Inpatient Medications Medications (Trade) Dose Ordered Sig/Ethel Route Start Time Stop Time Status Last Admin Dose Admin Acetaminophen (Tylenol Tab) 650 mg Q4H PRN PO 07/07/17 16:30 08/06/17 16:29 07/12/17 22:10 650 MG Al Hydrox/Mg Hydrox/Simethicone (Maalox Max Susp) 15 ml Q4H PRN PO 07/07/17 16:30 08/06/17 16:29 Magnesium Hydroxide (Milk Of Magnesia Susp) 30 ml Q12H PRN PO 07/07/17 16:30 08/06/17 16:29 07/11/17 09:06 30 ML Ondansetron HCl (Zofran Inj) 4 mg Q6H PRN IV 07/07/17 16:30 08/06/17 16:29 Glucose (Glucose 40% Gel) 15-30 GRAMS 15 GRAMS... UD PRN PO 07/07/17 16:30 08/06/17 16:29 07/15/17 21:07 15 GM Glucose (Glucose Chew Tab) 4-8 Tablets 4 Tabl... UD PRN PO 07/07/17 16:30 08/06/17 16:29 Dextrose (Dextrose 50% 50ML Syringe) 25-50ML OF 50% DW IV FOR... UD PRN IV 07/07/17 16:30 08/06/17 16:29 07/10/17 03:27 50 ML Glucagon (Glucagon Inj) 1 mg UD PRN SQ 07/07/17 16:30 08/06/17 16:29 Aspirin (Aspirin Chew) 81 mg QAM PO 07/08/17 09:00 08/07/17 08:59 07/16/17 07:49 81 MG Carvedilol (Coreg Tab) 25 mg BID PO 07/07/17 21:00 08/06/17 20:59 07/16/17 07:48 25 MG Fexofenadine HCl (Telma Tab) 180 mg HS PO 07/07/17 21:00 08/06/17 20:59 07/15/17 21:17 180 MG Levothyroxine Sodium (Synthroid Tab) 200 mcg DAILYBB PO 07/08/17 06:30 08/07/17 06:59 07/16/17 06:40 200 MCG Loratadine (Claritin Tab) 10 mg QAM PO 07/08/17 09:00 08/07/17 08:59 07/16/17 07:49 10 MG Magnesium Oxide (Mag-Ox Tab) 400 mg BID PO 07/07/17 21:00 08/06/17 20:59 07/16/17 07:48 400 MG Pantoprazole Sodium (Protonix Tab) 40 mg QAM PO 07/08/17 09:00 08/07/17 08:59 07/16/17 07:48 40 MG Simvastatin (Zocor Tab) 10 mg QPM PO 07/07/17 21:00 08/06/17 20:59 07/15/17 21:18 10 MG Tramadol HCl (Ultram Tab) 50 mg Q8H PRN PO 07/07/17 16:30 08/06/17 16:29 07/13/17 08:10 50 MG Cholecalciferol (Vitamin D Tab) 2,000 inter.unit DAILY PO 07/08/17 09:00 08/07/17 08:59 07/16/17 07:48 2,000 INTER.UNIT Miscellaneous Information (Consult Glycemic Management Pharmacy) 1 ea UD PRN N/A 07/07/17 16:45 08/06/17 16:44 Sertraline HCl (Zoloft Tab) 50 mg QAM PO 07/10/17 09:00 08/09/17 08:59 07/16/17 07:48 50 MG Docusate Sodium (coLACE CAP) 100 mg BID PO 07/11/17 10:00 08/10/17 09:59 07/15/17 21:17 100 MG Senna/Docusate Sodium (Senokot S Tab) 2 tab BID PO 07/11/17 21:00 08/10/17 20:59 07/15/17 21:18 2 TAB Sodium Biphosphate/ Sodium Phosphate (Fleet Enema) 132 ml DAILY PRN CO 07/12/17 09:00 08/11/17 08:59 Enteral Nutritional Formula (Boost Glucose Control) 1 can TIDM PO 07/11/17 12:00 08/10/17 11:59 07/16/17 17:47 1 CAN Multi-Ingredient Ointment (Eucerin Unscented Cr) 1 appln BID PRN EXT 07/11/17 12:00 08/10/17 11:59 Miconazole Nitrate (Desenex Powder) 1 appln UD PRN EXT 07/15/17 08:45 08/14/17 08:44 07/15/17 16:34 1 APPLN Insulin Aspart (novoLOG ASPART) SLIDING SCALE If C... QDB SC 07/16/17 08:00 08/15/17 07:59 07/16/17 08:37 6 UNITS Insulin Aspart (novoLOG ASPART) SLIDING SCALE If C... TID@1100,1630,2100 SC 07/16/17 11:00 08/15/17 10:59 07/16/17 17:50 11 UNITS Torsemide (Demadex Tab) 20 mg QAM PO 07/16/17 09:00 08/15/17 08:59 07/16/17 12:00 20 MG Enoxaparin Sodium (Lovenox Inj) 30 mg QAM SQ 07/17/17 09:00 08/16/17 08:59
[2017-07-16] MEDS: SIMVASTATIN 10 MG TAB PO SCH (21:41)
[2017-07-16] MEDS: FEXOFENADINE HCL 180 MG TAB PO SCH (21:42)
[2017-07-17 00:28] VITALS: BP 122/66; PULSE 76; TEMP 36.6; O2SAT 97
[2017-07-17] MEDS ORDERED: INSULIN ASPART 100 UNITS/ML 3 ML PEN SC ONE (02:00)
[2017-07-17 06:06] VITALS: BP 124/66; PULSE 77; TEMP 36.7; O2SAT 98
[2017-07-17] MEDS: LEVOTHYROXINE 200 MCG TAB PO SCH (06:47)
[2017-07-17 07:35] VITALS: BP 130/70; PULSE 67; TEMP 36.9; O2SAT 97
[2017-07-17] MEDS: DOCUSATE SODIUM/SENNA 50/8.6MG TAB PO SCH (07:54)
[2017-07-17] MEDS: BOOST GLUCOSE CONTROL PO SCH ×2 (07:54→12:19)
[2017-07-17] MEDS: DOCUSATE SODIUM 100 MG CAP PO SCH (07:54)
[2017-07-17] MEDS: PANTOprazole SOD 40 MG TAB PO SCH (07:54)
[2017-07-17] MEDS: LORATADINE 10 MG TAB PO SCH (07:54)
[2017-07-17] MEDS: TORSEMIDE 20 MG TAB PO SCH (07:55)
[2017-07-17] MEDS: ASPIRIN 81 MG CHEW PO SCH (07:55)
[2017-07-17] MEDS: CHOLECALCIFEROL 1000 INTER.UNIT TAB PO SCH (07:55)
[2017-07-17] MEDS: CARVEDILOL 25 MG TAB PO SCH (07:55)
[2017-07-17] MEDS: MAGNESIUM OXIDE 400 MG TAB PO SCH (07:55)
[2017-07-17] MEDS: SERTRALINE HCL 50 MG TAB PO SCH (07:55)
[2017-07-17 08:12] LABS: CREATININE 1.51 mg/dl (0.60-1.20); POTASSIUM 4.5 mmol/L (3.5-5.1)
[2017-07-17] MEDS: INSULIN ASPART 100 UNITS/ML 3 ML PEN SC SCH ×2 (08:59→12:52)
[2017-07-17] MEDS ORDERED: ENOXAPARIN 30 MG/0.3 ML SYR SQ SCH (09:00)
[2017-07-17 11:16] VITALS: BP 122/73; PULSE 78; TEMP 36.6; O2SAT 98
--- NOTE | 2017-07-17 13:05 | Pharmacy Progress Note ---
Pharmacy Glycemic Short Note 2 Date of Service Jul 17, 2017. OUTPATIENT ANTIDIABETIC REGIMEN: * Lantus 10 units qPM plus Novolog 10 units TIDM * Non-compliance as an outpatient ASSESSMENT: * Patient has been requiring ~ 20-25 units of insulin per day with labile control * Patient with recurrent hypo on 07/12 & 07/13 prior to dinner. Therefore, CF/CR were "loosened" to prevent further hypo. Lantus was also discontinued/held. Lantus has not been needed since. * Most recent episodes of hypo are secondary to too much NovoLog * 07/16/17: Adjusted/loosened CF/CR for specific meals further hypo. However, the parameters were decreased too significantly which resulted in rebound hyperglycemia. * Pre-lunch BSG tends to be the highest BSG of the day. --> Will keep breakfast coverage slighlty tighter than other meals to prevent significant BSG rise prior to lunch * Pt typically has a low after receiving a large correctional dose of insulin for an elevated BSG. Will loosen CF/CR with lunch, dinner, and HS to prevent over-correction and subsequent hypoglycemia PLAN FOR INPATIENT GLYCEMIC CONTROL: * Basal insulin * Continue to hold - no longer needed as AM fasting BSG is in goal range without * Bolus insulin * NovoLog per scale ACHS or Q6hrs while NPO Breakfast: * Goal Range: Low 110 mg/dL - High 150 mg/dL * Correction Factor: 30 mg/dL/unit * Nutritional / Prandial insulin per carb ratio of 1 unit per 12 grams CHO consumed Lunch, Dinner, and HS: * Goal Range: Low 120 mg/dL - High 160 mg/dL * Correction Factor: 35 mg/dL/unit * Nutritional / Prandial insulin per carb ratio of 1 unit per 15 grams CHO consumed
--- NOTE | 2017-07-17 16:28 | Progress Note ---
Medicine Progress Note Date & Time of Visit: Jul 17, 2017 at 16:04. Subjective Pt was seen and examined Sitting in chair with no distress Pt said that she feels fine Pt refused to go to rehab or skills facility Denies any chest pain, palpitation, dizziness and SOB Objective Last 8 Hrs Date Time Temp Pulse Resp B/P (MAP) Pulse Ox O2 Delivery O2 Flow Rate FiO2 07/17/17 12:00 Room Air 07/17/17 11:16 36.6 78 18 122/73 (89) 98 Physical Exam: General- No acute distress Head- atraumatic Eyes- PERRL, EOMI ENT- oropharynx clear Neck- supple, no JVD Lungs- No wheezing Heart- regular rhythm Abdomen- normal bowel sounds, soft Extremities- no calf tenderness Neuro- alert, oriented x 3; PERRL, EOMI Laboratory Results: Last 24 Hours Test 07/16/17 16:40 07/16/17 20:19 07/17/17 01:52 07/17/17 06:53 Bedside Glucose 314 mg/dl 413 mg/dl 122 mg/dl Sodium Level 141 mmol/L Potassium Level 4.5 mmol/L Chloride Level 108 mmol/L Carbon Dioxide Level 26 mmol/L Anion Gap 6.0 mmol/L Blood Urea Nitrogen 28 mg/dl Creatinine 1.51 mg/dl Est Creatinine Clear Calc Drug Dose 30.9 ml/min Estimated GFR () 37.7 Estimated GFR (Non- 32.5 BUN/Creatinine Ratio 18.8 Random Glucose 137 mg/dl Calcium Level 8.0 mg/dl Test 07/17/17 07:04 07/17/17 11:42 Bedside Glucose 152 mg/dl 237 mg/dl Assessment & Plan SYNCOPE Etiology unknown Possibilities related to hypoglycemia vs orthostasis vs UTI. CT head on admission showed no acute intracranial abnormality. Stable CORONARY ARTERY DISEASE Denied any chest pain. Continue aspirin, carvedilol, statin. Stable CHRONIC LEFT VENTRICULAR DIASTOLIC HEART FAILURE No in acute failure Torsemide was on hold due to elevate creatine Continue torsemide 20mg daily Cardiology on board Case discussed with cardiology recommended to continue torsemide and continue to hold hydralazine OK to take an additional 20 mg with worsening swelling as needed only Use compression stocking and keep leg elevates for swelling continue monitor BMP closely ECHO showed * Ejection Fraction = 65-70%. * There is mild concentric left ventricular hypertrophy. * The left atrium is moderately dilated. * Mild aortic regurgitation. * There is a prior mitral valve repair and annuloplasty ring. * The anterior leaflet is thickened and mobile while the posterior leaflet is calcified with severely reduced mobility. * There is mild mitral stenosis. * Significant mitral regurgitation is absent. * There is moderate tricuspid regurgitation. 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 Stable HYPERTENSION BP control Continue holding hydralazine Continue carvedilol and torsemide resolved Continue monitor BP ORTHOSTATIC HYPOTENSION ACTH stim test results: cortisol time (0) 9.6 --> (30 min) 23 --> (60 min) 26. Torsemide resumed daily Stable CKD III / CUTE KIDNEY INJURY Serum creatinine at time of admission 1.75. Elevated CK on admission due to fall Creatinine increased from 1.49 to 1.59-->1.51 Avoid nephrotoxic agents Continue monitor closely due to the torsemide DM TYPE 2 Uncontrolled Hgb A1C = 12.2. Pharmacy consulted for glycemic management. BS has been fluctuated from high to low Case discussed with Pharmacy Will consider to resume lantus at 5 units and Novolog at 4 units with each meal Continue monitor BS very closely and bring BS log at your next PCP appt UTI UA showed leukocyte esterase, many WBC's, many epithelial cells, 1+ bacteria. Final urine cx growth citrobacter Feundii complex E. Coli Completed TMP/sulfa course. NAUSEA / WT LOSS Patient reports 30 lb weight loss associated with anorexia and nausea.. GI consulted. HAD EGD done 07/09 that showed gastritis. Gastric emptying scan 07/[address] abdominal/pelvis with oral contrast showed no acute abnormality ANEMIA Hgb 11.1 No signs of active bleeding Continue monitor VTE PROPHYLAXIS SQ enoxaparin. Ambulate. DISPOSITION Refused to go to Skilled care or rehab for inpatient therapy Anticipated discharge to home with home health services today Family Medicine follow-up with Dr. Reid on 07/23 @ 11:00 o'clock Consultants: Cardio Nephro Current Inpatient Medications: Current Inpatient Medications Medications (Trade) Dose Ordered Sig/Ethel Route Start Time Stop Time Status Last Admin Dose Admin Acetaminophen (Tylenol Tab) 650 mg Q4H PRN PO 07/07/17 16:30 08/06/17 16:29 07/12/17 22:10 650 MG Al Hydrox/Mg Hydrox/Simethicone (Maalox Max Susp) 15 ml Q4H PRN PO 07/07/17 16:30 08/06/17 16:29 Magnesium Hydroxide (Milk Of Magnesia Susp) 30 ml Q12H PRN PO 07/07/17 16:30 08/06/17 16:29 07/11/17 09:06 30 ML Ondansetron HCl (Zofran Inj) 4 mg Q6H PRN IV 07/07/17 16:30 08/06/17 16:29 Glucose (Glucose 40% Gel) 15-30 GRAMS 15 GRAMS... UD PRN PO 07/07/17 16:30 08/06/17 16:29 07/15/17 21:07 15 GM Glucose (Glucose Chew Tab) 4-8 Tablets 4 Tabl... UD PRN PO 07/07/17 16:30 08/06/17 16:29 Dextrose (Dextrose 50% 50ML Syringe) 25-50ML OF 50% DW IV FOR... UD PRN IV 07/07/17 16:30 08/06/17 16:29 07/10/17 03:27 50 ML Glucagon (Glucagon Inj) 1 mg UD PRN SQ 07/07/17 16:30 08/06/17 16:29 Aspirin (Aspirin Chew) 81 mg QAM PO 07/08/17 09:00 08/07/17 08:59 07/17/17 07:55 81 MG Carvedilol (Coreg Tab) 25 mg BID PO 07/07/17 21:00 08/06/17 20:59 07/17/17 07:55 25 MG Fexofenadine HCl (Telma Tab) 180 mg HS PO 07/07/17 21:00 08/06/17 20:59 07/16/17 21:42 180 MG Levothyroxine Sodium (Synthroid Tab) 200 mcg DAILYBB PO 07/08/17 06:30 08/07/17 06:59 07/17/17 06:47 200 MCG Loratadine (Claritin Tab) 10 mg QAM PO 07/08/17 09:00 08/07/17 08:59 07/17/17 07:54 10 MG Magnesium Oxide (Mag-Ox Tab) 400 mg BID PO 07/07/17 21:00 08/06/17 20:59 07/17/17 07:55 400 MG Pantoprazole Sodium (Protonix Tab) 40 mg QAM PO 07/08/17 09:00 08/07/17 08:59 07/17/17 07:54 40 MG Simvastatin (Zocor Tab) 10 mg QPM PO 07/07/17 21:00 08/06/17 20:59 07/16/17 21:41 10 MG Tramadol HCl (Ultram Tab) 50 mg Q8H PRN PO 07/07/17 16:30 08/06/17 16:29 07/13/17 08:10 50 MG Cholecalciferol (Vitamin D Tab) 2,000 inter.unit DAILY PO 07/08/17 09:00 08/07/17 08:59 07/17/17 07:55 2,000 INTER.UNIT Miscellaneous Information (Consult Glycemic Management Pharmacy) 1 ea UD PRN N/A 07/07/17 16:45 08/06/17 16:44 Sertraline HCl (Zoloft Tab) 50 mg QAM PO 07/10/17 09:00 08/09/17 08:59 07/17/17 07:55 50 MG Docusate Sodium (coLACE CAP) 100 mg BID PO 07/11/17 10:00 08/10/17 09:59 07/17/17 07:54 100 MG Senna/Docusate Sodium (Senokot S Tab) 2 tab BID PO 07/11/17 21:00 08/10/17 20:59 07/17/17 07:54 2 TAB Sodium Biphosphate/ Sodium Phosphate (Fleet Enema) 132 ml DAILY PRN NV 07/12/17 09:00 08/11/17 08:59 Enteral Nutritional Formula (Boost Glucose Control) 1 can TIDM PO 07/11/17 12:00 08/10/17 11:59 07/17/17 12:19 1 CAN Multi-Ingredient Ointment (Eucerin Unscented Cr) 1 appln BID PRN EXT 07/11/17 12:00 08/10/17 11:59 Miconazole Nitrate (Desenex Powder) 1 appln UD PRN EXT 07/15/17 08:45 08/14/17 08:44 07/15/17 16:34 1 APPLN Insulin Aspart (novoLOG ASPART) SLIDING SCALE If C... QDB SC 07/16/17 08:00 3/15/18 07:59 07/17/17 08:59 8 UNITS Insulin Aspart (novoLOG ASPART) SLIDING SCALE If C... TID@1100,1630,2100 SC 07/16/17 11:00 08/15/17 10:59 07/17/17 12:52 10 UNITS Torsemide (Demadex Tab) 20 mg QAM PO 07/16/17 09:00 08/15/17 08:59 07/17/17 07:55 20 MG Enoxaparin Sodium (Lovenox Inj) 30 mg QAM SQ 07/17/17 09:00 08/16/17 08:59 07/17/17 07:56 30 MG
[2017-07-17] MEDS ORDERED: ZLF50 PO (16:36)
[2017-07-17] MEDS ORDERED: TORS20TA2 PO (16:36)
[2017-07-17] MEDS ORDERED: MCTP EXT (16:36)
--- NOTE | 2017-07-17 16:49 | Discharge Instructions ---
Discharge Instructions Date of Service Jul 17, 2017. Admission Reason for Admission: FALL Discharge Discharge Diagnosis / Problem: Syncope/ Uncontrolled Diabetes with Hypo and hyperglycemia Discharge Goals Goal(s): Decrease discomfort, Improve function, Improve disease control Activity Recommendations Activity Limitations: resume your previous activity (as tolerated) . Instructions / Follow-Up Instructions / Follow-Up Follow up with your physician Dr. Reid (Dr. Adams colleague) on 07/23 @ 11 AM Follow up with nephrology (please call to schedule for the follow up) Check BMP weekly x 3 to monitor renal renal function Torsemide change to 20mg daily, OK to take an additional 20 mg with worsening swelling as needed only Use compression stocking and keep leg elevates for swelling Fall precaution (take your time and do not get up too quick when standing from sitting or supine position) Continue Physical therapy Monitor blood sugar closely and bring blood sugar log at your next appointment with your doctor Follow a healthy diabetes diet and limited concentrated sugar intake Lantus decrease to 5 units. NovoLog changed to 5 unit with each meal Your physician will titrate your insulin. Zoloft (Sertraline) decreased to 50mg daily Hold Hydralazine for now Continue monitor blood pressure. Current Hospital Diet Patient's current hospital diet: AHA Diet (Heart Healthy), Diabetes Type 2 Diet Discharge Diet Recommended Diet: AHA Diet (Heart Healthy), Diabetes Type 2 Diet Procedures Procedures Performed: EGD w/Biopsies Pending Studies Studies pending at discharge: no Laboratory Results Hemoglobin A1c Test 07/08/17 05:20 Range/Units Estimated Average Glucose 303 mg/dl Hemoglobin A1c 12.2 H 4.5-5.6 % Medical Emergencies . Who to Call and When: Medical Emergencies: If at any time you feel your situation is an emergency, please call 911 immediately. . Non-Emergent Contact Non-Emergency issues call your: Primary Care Provider Call Non-Emergent contact if: you have any medication questions . . "Provider Documentation" section prepared by Madelyn Hair. . VTE Core Measure Inpt VTE Proph given/why not?: Enoxaparin (Lovenox)YOKASTA, TElanaEMike Cisse
[2017-07-17 17:31] VITALS: BP 122/73; PULSE 78; TEMP 36.6; O2SAT 98
--- NOTE | 2017-07-19 00:31 | Discharge Summary ---
Discharge Summary Date of Service Jul 19, 2017. Discharge Summary Admission Date: Jul 07, 2017 at 16:34 Discharge Date: Jul 17, 2017 Discharge Disposition: Home with services Principal Diagnosis: SYNCOPE Secondary Diagnoses/Problems: CHRONIC LEFT VENTRICULAR DIASTOLIC HEART FAILURE CAD VALVULAR HEART DISEASE ORTHOSTATIC HYPOTENSION HTN UTI DM TYPE 2 WEIGHT LOSS/NAUSEA Procedures: [~ rep ct add3]] ABD/PELVIS ORAL CONT ONLY CT DOSE: 725.63 mGy.cm HISTORY: Pain weight loss, diabetic with labile blood sugars TECHNIQUE: Multiaxial CT images of the abdomen and pelvis were performed following the use of oral contrast. A dose lowering technique was utilized adhering to the principles of ALARA. COMPARISON STUDY: 11/03/2015 FINDINGS: Chronic bibasilar pleural thickening and small right and to a lesser extent loculated pleural effusion. This is improved from the prior exam. Stable pneumobilia and biliary ductal prominence on a postoperative basis. This is unchanged as well. Kidneys negative for hydronephrosis. Spleen is unremarkable. Bowel pattern within the abdomen and pelvis is considered nonobstructive. Bladder is midline. There is a mild fecal impaction. Postoperative changes of left inguinal region are stable. Several small nodes are present unchanged in the prior study. Interval development of mild body wall anasarca. IMPRESSION: 1. Interval development of mild/moderate body wall anasarca. 2. Improved basilar atelectatic and loculated effusion-type changes compared to the prior study. 3. Stable postoperative intra-abdominal findings with no acute recurrent process of the abdomen or pelvis. 4. Mild rectal fecal impaction. The above report was generated using voice recognition software. It may contain grammatical, syntax or spelling errors. Electronically signed by: Vj Rinaldi M.D. 07/16/2017 11:48 AM Dictated Date/Time: 07/16/2017 11:39 AM GASTRIC EMPTYING HISTORY: Dyspepsia nausea COMPARISON: None. TECHNIQUE: Following the oral administration of 1.1 mCi of technetium 99m sulfur colloid in egg sandwich and 8 ounces of water, static abdominal images are obtained anteriorly and posteriorly at 0 minutes, 1 hour, 2 hour, and 4 hour time intervals. Gastric emptying was calculated utilizing the geometric mean method. FINDINGS: There is approximately 35 % activity remaining at the 1 hour time interval (normal is less than 90%), 30 % remaining at the 2 hour time interval (normal is less than 60%), and 3 % activity remaining at the 4 hour time interval (normal is less than 10%). IMPRESSION: No evidence for delayed gastric emptying. The above report was generated using voice recognition software. It may contain grammatical, syntax or spelling errors. Electronically signed by: Vj Rinaldi M.D. 07/10/2017 12:36 PM Dictated Date/Time: 07/10/2017 12:35 PM HEAD WITHOUT CONTRAST (CT) CLINICAL HISTORY: 81 years-old Female presenting with eval for trauma, history of syncope last night, on the floor till this morning, found down, headache. TECHNIQUE: Multidetector CT imaging of the head was performed without the use of intravenous contrast. IV contrast: None. A dose lowering technique was used consistent with the principles of ALARA (as low as reasonably achievable). COMPARISON: 05/02/2016. CT DOSE (mGy.cm): The estimated cumulative dose is 537.48 mGy.cm. FINDINGS: Solidworks Designer topogram: Unremarkable. Proportional ventricular and sulcal prominence, likely age-related parenchymal volume loss. Brain parenchyma normal in appearance with preserved johnson-white differentiation. No mass effect or midline shift. No hemorrhage or acute territorial infarct. No extra-axial fluid collection. Paranasal sinuses and mastoid air cells clear. Calvarium intact. IMPRESSION: 1. No acute intracranial abnormality. Electronically signed by: Nathan Hendrix M.D. 07/07/2017 3:41 PM Dictated Date/Time: 07/07/2017 3:39 PM Consultations: Cardio Nephro Medication Reconciliation New Medications: Miconazole Nitrate (Desenex Shake Powder) 43 Appln/43 Gm Powd 1 APPLN EXT UD PRN for Affected Skin Folds for 7 Days Sertraline HCl (Sertraline HCl) 50 Mg Tab 50 MG PO QAM for 30 Days, #30 TAB Changed Medications: Torsemide (Demadex) 20 Mg Tab 20 MG PO DAILY for 30 Days, #30 TAB (Changed from: BID) Continued Medications: Ascorbic Acid (Vitamin C) 500 Mg Tab 1 TAB PO QAM Aspirin (Aspirin Chewable) 81 Mg Chew 81 MG PO QAM Carvedilol (Coreg) 25 Mg Tab 25 MG PO BID, TAB Cholecalciferol (Vitamin D3) 2,000 Unit Tab 1 TAB PO QAM, TAB Ferrous Sulfate (Iron) 325 Mg Tab 1 TAB PO BID Insulin Aspart (Novolog Flexpen) 100 Units/Ml Inj 5 UNITS SC TID with each meal Insulin Glargine (Lantus) 100 Unit/Ml Inj 5 SC QPM, VIAL Ipratropium [place] (Atrovent 0.02% Soln) 2.5 Ml Nebu 1 DOSE INH DIRECTED PRN for Shortness of Breath Levothyroxine Sodium (Levothyroxine Sodium) 200 Mcg Tab 1 TAB PO QAM for 90 Days, #90 TAB 3 Refills Loratadine (Claritin) 10 Mg Tab 10 MG PO QAM, TAB Magnesium Oxide (Mag-Ox) 400 Mg Tab 400 MG PO BID, TAB Ondansetron Hcl (Zofran) 4 Mg Tab 4 MG PO Q4H PRN for Nausea, TAB Pantoprazole (Protonix) 40 Mg Tab 40 MG PO QAM, #30 TAB Simvastatin (Zocor) 10 Mg Tab 10 MG PO QPM, TAB Tramadol (Ultram) 50 Mg Tab 50 MG PO Q8H PRN for Pain, TAB Discontinued Medications: Hydralazine Hcl (Apresoline) 25 Mg Tab 25 MG PO TID, TAB Sertraline (Zoloft) 100 Mg Tab 1 TAB PO DAILY for 90 Days, #90 TAB 1 Refill Admission Information HPI (per Admitting provider): This is a 81 year old female with a PMH of uncontrolled, insulin dependent diabetes mellitus type 2 with complications including neuropathy, nephropathy and likely gastroparesis; nonobstructive CAD; hx. of mitral valve repair; diastolic CHF; recurrent pleural effusion requiring thoracentesis; HTN; hypothyroidism; CKD stage 3 - presents after getting dizzy, passing out and falling. States she was in her usual state of health until late last night (07/06 ) - she felt like her sugars were low and was planning on going to check when she became dizzy, blacked out and fell to the ground. She does not recall what she hit. States that she was on the ground for about 10-12 hours. She is telling me that she has been nauseous for months now. Because of her nausea, she becomes hypoglycemic when she does not eat. She states that for the past few days, the nausea has been worse, but she has continued to use her Lantus 10 units and NovoLog 10 units twice a day. She tells me that she recently had a colonoscopy with no acute findings; she was started on Zofran. Physical Exam (per Admitting): General Appearance: no apparent distress Head: normocephalic, atraumatic Eyes: normal inspection Respiratory/Chest: chest non-tender, no respiratory distress, no accessory muscle use, + decreased breath sounds Cardiovascular: regular rate, rhythm, no murmur Abdomen/GI: normal bowel sounds, non tender, soft Extremities/Musculoskelatal: + swelling (lower extremity edema), + pertinent finding Neurologic/Psych: no motor/sensory deficits, alert, normal mood/affect, oriented x 3 Skin: normal color Lymphatic: no adenopathy Hospital Course SYNCOPE Etiology unknown Possibilities related to hypoglycemia vs orthostasis vs UTI. CT head on admission showed no acute intracranial abnormality. Stable CORONARY ARTERY DISEASE Denied any chest pain. Continue aspirin, carvedilol, statin. Stable CHRONIC LEFT VENTRICULAR DIASTOLIC HEART FAILURE No in acute failure Torsemide was on hold due to elevate creatine Continue torsemide 20mg daily Cardiology on board Case discussed with cardiology recommended to continue torsemide and continue to hold hydralazine OK to take an additional 20 mg with worsening swelling as needed only Use compression stocking and keep leg elevates for swelling continue monitor BMP closely ECHO showed * Ejection Fraction = 65-70%. * There is mild concentric left ventricular hypertrophy. * The left atrium is moderately dilated. * Mild aortic regurgitation. * There is a prior mitral valve repair and annuloplasty ring. * The anterior leaflet is thickened and mobile while the posterior leaflet is calcified with severely reduced mobility. * There is mild mitral stenosis. * Significant mitral regurgitation is absent. * There is moderate tricuspid regurgitation. 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 Stable HYPERTENSION BP control Continue holding hydralazine Continue carvedilol and torsemide resolved Continue monitor BP ORTHOSTATIC HYPOTENSION ACTH stim test results: cortisol time (0) 9.6 --> (30 min) 23 --> (60 min) 26. Torsemide resumed daily Stable CKD III / CUTE KIDNEY INJURY Serum creatinine at time of admission 1.75. Elevated CK on admission due to fall Creatinine increased from 1.49 to 1.59-->1.51 Avoid nephrotoxic agents Continue monitor closely due to the torsemide DM TYPE 2 Uncontrolled Hgb A1C = 12.2. Pharmacy consulted for glycemic management. BS has been fluctuated from high to low Case discussed with Pharmacy Will consider to resume lantus at 5 units and Novolog at 4 units with each meal Continue monitor BS very closely and bring BS log at your next PCP appt UTI UA showed leukocyte esterase, many WBC's, many epithelial cells, 1+ bacteria. Final urine cx growth citrobacter Feundii complex E. Coli Completed TMP/sulfa course. NAUSEA / WT LOSS Patient reports 30 lb weight loss associated with anorexia and nausea.. GI consulted. HAD EGD done 07/09 that showed gastritis. Gastric emptying scan 07/[address] abdominal/pelvis with oral contrast showed no acute abnormality ANEMIA Hgb 11.1 No signs of active bleeding Continue monitor VTE PROPHYLAXIS SQ enoxaparin. Ambulate. DISPOSITION Refused to go to Skilled care or rehab for inpatient therapy Anticipated discharge to home with home health services today Family Medicine follow-up with Dr. Reid on 07/23 @ 11:00 o'clock Total time spent on discharge = 35 MINUTES This includes examination of the patient, discharge planning, medication reconciliation, and communication with other providers. Discharge Instructions Discharge Instructions Date of Service Jul 17, 2017. Admission Reason for Admission: FALL Discharge Discharge Diagnosis / Problem: Syncope/ Uncontrolled Diabetes with Hypo and hyperglycemia Discharge Goals Goal(s): Decrease discomfort, Improve function, Improve disease control Activity Recommendations Activity Limitations: resume your previous activity (as tolerated) . Instructions / Follow-Up Instructions / Follow-Up Follow up with your physician Dr. Reid (Dr. Adams colleague) on 07/23 @ 11 AM Follow up with nephrology (please call to schedule for the follow up) Check BMP weekly x 3 to monitor renal renal function Torsemide change to 20mg daily, OK to take an additional 20 mg with worsening swelling as needed only Use compression stocking and keep leg elevates for swelling Fall precaution (take your time and do not get up too quick when standing from sitting or supine position) Continue Physical therapy Monitor blood sugar closely and bring blood sugar log at your next appointment with your doctor Follow a healthy diabetes diet and limited concentrated sugar intake Lantus decrease to 5 units. NovoLog changed to 5 unit with each meal Your physician will titrate your insulin. Zoloft (Sertraline) decreased to 50mg daily Hold Hydralazine for now Continue monitor blood pressure. Current Hospital Diet Patient's current hospital diet: AHA Diet (Heart Healthy), Diabetes Type 2 Diet Discharge Diet Recommended Diet: AHA Diet (Heart Healthy), Diabetes Type 2 Diet Procedures Procedures Performed: EGD w/Biopsies Pending Studies Studies pending at discharge: no Laboratory Results Hemoglobin A1c Test 07/08/17 05:20 Range/Units Estimated Average Glucose 303 mg/dl Hemoglobin A1c 12.2 H 4.5-5.6 % Medical Emergencies . Who to Call and When: Medical Emergencies: If at any time you feel your situation is an emergency, please call 911 immediately. . Non-Emergent Contact Non-Emergency issues call your: Primary Care Provider Call Non-Emergent contact if: you have any medication questions . . "Provider Documentation" section prepared by Madelyn Hair. . VTE Core Measure Inpt VTE Proph given/why not?: Enoxaparin (Lovenox)YOKASTA, TElanaEMike Stockings Additional Copies To Suzanne Adams M.D.
== END 2017-07-17 18:00 | disposition home health service (06) | DRG 683 ==
LOC: C.EDB 12:37 → C.MED 16:34 → ENRESERV 17:24
PROVIDERS: ADMIT Family Medicine; ATTEND Internal Medicine
DX: N17.9 Acute kidney failure, unspecified (principal); M62.82 Rhabdomyolysis; I50.32 Chronic diastolic (congestive) heart failure; N39.0 Urinary tract infection, site not specified; I95.1 Orthostatic hypotension; E11.649 Type 2 diabetes mellitus with hypoglycemia without coma; I25.10 Atherosclerotic heart disease of native coronary artery without angina pectoris; F32.9 Major depressive disorder, single episode, unspecified; K21.9 Gastro-esophageal reflux disease without esophagitis; I11.0 Hypertensive heart disease with heart failure; I34.0 Nonrheumatic mitral (valve) insufficiency; M81.0 Age-related osteoporosis without current pathological fracture; R91.1 Solitary pulmonary nodule; Z79.82 Long term (current) use of aspirin; Z79.4 Long term (current) use of insulin; E86.0 Dehydration; E11.21 Type 2 diabetes mellitus with diabetic nephropathy; E11.43 Type 2 diabetes mellitus with diabetic autonomic (poly)neuropathy; N18.3 Chronic kidney disease, stage 3 (moderate); E78.5 Hyperlipidemia, unspecified; E03.9 Hypothyroidism, unspecified

== ENCOUNTER 2017-07-22 13:07 | Inpatient (IN) | payer OTHER ==
[~2017-07-22] VITALS: Ht 157.5 cm; Wt 77.2 kg
[~2017-07-22 13:07] MED LIST changes: -APR25 PO; -CALC600T9 PO; -FEXO1TAB49 PO; +MCTP EXT; +ONDA4TAB46 PO; -SERT50TA PO; +ZLF50 PO
[2017-07-22 14:06] LABS: HEMATOCRIT 30.4 % (37-47); HEMOGLOBIN 10.1 g/dL (12.0-16.0); MEAN CELL VOLUME 94.4 fL (80-100); MEAN CORPUSCULAR HEMOGLOBIN 31.4 pg (25-34); MEAN CORPUSCULAR HGB CONC 33.2 g/dl (32-36); MEAN PLATELET VOLUME 9.4 fL (7.4-10.4); PLATELET COUNT 195 K/uL (130-400); RED CELL DISTRIBUTION WIDTH CV 15.4 % (11.5-14.5); RED CELL DISTRIBUTION WIDTH SD 53.4 fL (36.4-46.3); WHITE BLOOD COUNT 4.57 K/uL (4.8-10.8)
--- NOTE | 2017-07-22 14:13 | EMERGENCY ROOM VISIT NOTE ---
History First contact with patient: 13:30 Chief Complaint: WEAKNESS Stated Complaint: CHEST PAIN,WEAKNESS Nursing Triage Summary: pt to the ED with c/o home health visiting her and she was concerned about pt wheezing and resp status pt c/o weakness and coughing nonproductive pt has chronic leg swelling History of Present Illness The patient is a 81 year old female who presents to the Emergency Room with complaints of worsening SOB and wheezing. The patient was recently discharged from [facility] last week. Complains of SOBOE and orthopnea and a cough which started about 2 days ago. denies any fevers/chills or body aches. denies any chest pain , palpitations, lightheadedness or dizziness. cough is sometimes productive. c/ o loss of appetite and generalized weakness. Stated that her Demadex dose was recently changed and has been taking it only once daily instead of twice daily and an extra dose as needed. denied any h/o COPD or asthma or any h/o smoking. received flu vaccine and denied any exposure to influenza. Source of History: patient, family Associated Symptoms: + cough, + SOB, No fevers, No chills, No chest pain Review of Systems See HPI for pertinent positives & negatives. A total of 10 systems reviewed and were otherwise negative. Past Medical/Surgical History Medical Problems: (1) CHF (congestive heart failure) (2) CHF (congestive heart failure) (3) Chronic kidney disease (CKD), stage III (moderate) (4) Coronary artery disease (5) Depression (6) Diabetes mellitus, type II (7) Dyslipidemia (8) Fall (9) GERD (gastroesophageal reflux disease) (10) History of adenomatous polyp of colon (11) History of pleural effusion (12) Hypertension (13) Hypothyroidism (14) Mitral valve regurgitation (15) Osteoporosis (16) Pulmonary nodule (17) Venous insufficiency of both lower extremities Surgical Problems: (1) Status post cataract extraction (2) Status post cholecystectomy (3) Status post hysterectomy (4) Status post mitral valve replacement Family History FH: heart disease MOTHER Hypertension Social History Smoking Status: Never Smoker Drug Use: none Marital Status: Housing Status: lives with significant other Occupation Status: retired Current/Historical Medications Scheduled Ascorbic Acid (Vitamin C), 1 TAB PO QAM Aspirin (Aspirin Chewable), 81 MG PO QAM Carvedilol (Coreg), 25 MG PO BID Cholecalciferol (Vitamin D3), 1 TAB PO QAM Insulin Aspart (Novolog Flexpen), 5 UNITS SC TID Insulin Glargine (Lantus), 5 SC QPM Levothyroxine Sodium (Levothyroxine Sodium), 1 TAB PO QAM Loratadine (Claritin), 10 MG PO QAM Magnesium Oxide (Mag-Ox), 400 MG PO BID Pantoprazole (Protonix), 40 MG PO QAM Sertraline HCl (Sertraline HCl), 50 MG PO QAM Simvastatin (Zocor), 10 MG PO QPM Torsemide (Demadex), 20 MG PO DAILY Scheduled PRN Ipratropium [place] (Atrovent 0.02% Soln), 1 DOSE INH DIRECTED PRN for Shortness of Breath Miconazole Nitrate (Desenex Shake Powder), 1 APPLN EXT UD PRN for Affected Skin Folds Tramadol (Ultram), 50 MG PO Q8H PRN for Pain Physical Exam Vital Signs Date Time Temp Pulse Resp B/P (MAP) Pulse Ox O2 Delivery O2 Flow Rate FiO2 07/22/17 17:19 37.0 72 22 157/98 98 Room Air 07/22/17 16:18 37.0 71 22 157/98 97 Room Air 07/22/17 15:21 71 22 150/51 96 Room Air 07/22/17 14:15 71 20 175/78 95 Room Air 07/22/17 13:11 37.0 71 18 154/69 93 Room Air Physical Exam GENERAL: Patient is in no acute distress. HEENT: No acute trauma, normocephalic atraumatic, mucous membranes moist, no nasal congestion, no scleral icterus. NECK: No stridor, no adenopathy, no meningismus, trachea is midline. LUNGS: No resp distress, rhonchi and scattered wheezes bilaterally. HEART: Without murmurs gallops or rubs, regular rate and rhythm. ABDOMEN: Soft, nontender, bowel sounds positive, no hernias, no peritonitis. EXTREMITIES: Bilateral lower extremity swelling 4+, full range of motion of all the joints without pain or difficulty, no signs for acute trauma. NEUROLOGIC: Oriented x 3, no acute motor or sensory deficits, no focal weakness. SKIN: No rash, no jaundice, no diaphoresis. Medical Decision & Procedures ER Provider Diagnostic Interpretation: TWO VIEW CHEST CLINICAL HISTORY: Cough and dyspnea.. FINDINGS: AP and lateral chest radiographs are compared to study dated and correlated with chest CT dated 09/16/2015. The AP view is degraded by patient rotation. The heart is enlarged and there is atherosclerotic calcification of the thoracic aorta. There is evidence of previous mitral valve surgery. Epicardial pacing leads are noted. There is pulmonary vascular congestion. Bibasilar perihilar opacities are identified. There are small pleural effusions. There is no pneumothorax. The skeletal structures are osteopenic. The bony thorax appears intact. IMPRESSION: 1. Cardiomegaly with evidence of congestive failure. 2. Perihilar airspace opacities likely represent a component of interstitial edema. Correlate clinically for evidence of superimposed pneumonia. 3. Small pleural effusions. Electronically signed by: Gerald Perera M.D. 07/22/2017 2:56 PM Dictated Date/Time: 07/22/2017 2:54 PM The status of this report is Signed. Draft = Not yet reviewed or approved by Radiologist. Signed = Reviewed and approved by Radiologist. Laboratory Results 07/22/17 13:35 Red Blood Count 3.22, Mean Corpuscular Volume 94.4, Mean Corpuscular Hemoglobin 31.4, Mean Corpuscular Hemoglobin Concent 33.2, Mean Platelet Volume 9.4, Neutrophils (%) (Auto) 76.8, Lymphocytes (%) (Auto) 16.0, Monocytes (%) (Auto) 6.1, Eosinophils (%) (Auto) 0.0, Basophils (%) (Auto) 0.4, Neutrophils # (Auto) 3.51, Lymphocytes # (Auto) 0.73, Monocytes # (Auto) 0.28, Eosinophils # (Auto) 0.00, Basophils # (Auto) 0.02 07/22/17 13:35 Test 07/22/17 13:35 07/22/17 14:25 07/22/17 14:41 White Blood Count 4.57 K/uL (4.8-10.8) Red Blood Count 3.22 M/uL (4.2-5.4) Hemoglobin 10.1 g/dL (12.0-16.0) Hematocrit 30.4 % (37-47) Mean Corpuscular Volume 94.4 fL (80-100) Mean Corpuscular Hemoglobin 31.4 pg (25-34) Mean Corpuscular Hemoglobin Concent 33.2 g/dl (32-36) Platelet Count 195 K/uL (130-400) Mean Platelet Volume 9.4 fL (7.4-10.4) Neutrophils (%) (Auto) 76.8 % Lymphocytes (%) (Auto) 16.0 % Monocytes (%) (Auto) 6.1 % Eosinophils (%) (Auto) 0.0 % Basophils (%) (Auto) 0.4 % Neutrophils # (Auto) 3.51 K/uL (1.4-6.5) Lymphocytes # (Auto) 0.73 K/uL (1.2-3.4) Monocytes # (Auto) 0.28 K/uL (0.11-0.59) Eosinophils # (Auto) 0.00 K/uL (0-0.5) Basophils # (Auto) 0.02 K/uL (0-0.2) RDW Standard Deviation 53.4 fL (36.4-46.3) RDW Coefficient of Variation 15.4 % (11.5-14.5) Immature Granulocyte % (Auto) 0.7 % Immature Granulocyte # (Auto) 0.03 K/uL (0.00-0.02) Anion Gap 10.0 mmol/L (3-11) Est Creatinine Clear Calc Drug Dose 39.0 ml/min Estimated GFR () 50.3 Estimated GFR (Non- 43.4 BUN/Creatinine Ratio 12.6 (10-20) Calcium Level 8.0 mg/dl (8.5-10.1) Total Bilirubin 0.3 mg/dl (0.2-1) Aspartate Amino Transf (AST/SGOT) 41 U/L (15-37) Alanine Aminotransferase (ALT/SGPT) 31 U/L (12-78) Alkaline Phosphatase 47 U/L (45-117) Troponin I 0.022 ng/ml (0-0.045) Pro-B-Type Natriuretic Peptide 7756 pg/ml (0-1800) Total Protein 5.4 gm/dl (6.4-8.2) Albumin 1.8 gm/dl (3.4-5.0) Globulin 3.6 gm/dl (2.5-4.0) Albumin/Globulin Ratio 0.5 (0.9-2) Beta-Hydroxybutyric Acid 1.44 mg/dL (0.2-2.81) Influenza Type A (RT-PCR) Neg for Influ A (NEG) Influenza Type B (RT-PCR) Neg for Influ B (NEG) Bedside Lactic Acid Venous 3.31 mmol/L (0.90-1.70) Medications Administered Medications (Trade) Dose Ordered Sig/Ethel Route Start Time Stop Time Status Last Admin Dose Admin Albuterol/ Ipratropium (Duoneb) 3 ml Q4R INH 07/22/17 16:00 08/21/17 15:59 07/22/17 15:23 3 ML Insulin Human Regular (novoLIN-R) 8 units ONE SC 07/22/17 15:00 08/21/17 14:59 07/22/17 15:51 8 UNITS Piperacillin Sod/ Tazobactam Sod (Zosyn Iv) 4.5 gm NOW STAT IV 07/22/17 17:01 07/22/17 17:02 DC 07/22/17 17:10 4.5 GM ECG Per My Interpretation Indication: SOB/dyspnea Rate (beats per minute): 68 Rhythm: normal sinus Findings: no acute ischemic change, no ectopy Comparison ECG Date: 07/09/16 Change: no significant change Medical Decision Prior records/ancillary studies reviewed. Triage Nursing notes reviewed. Additional history obtained from the family. The patient's history was concerning for respiratory difficulties. Differential diagnosis: Etiologies such as infections, reactive airway disease, pneumonia, pneumothorax , COPD, CHF, cardiac ischemia, pulmonary embolism, musculoskeletal, gastrointestinal, as well as others were entertained. Physical examination: As above. ER treatment provided: CBC, CMP, CXR , EKG, lactic acid, influenza serology was ordered She received a duoneb treatment and was also given a dose of Zosyn to cover for possible pneumonia On reassessment the patient felt better. Diagnostic interpretation by me: The electrocardiogram was negative for acute ischemic or pathologic change. The labs revealed an elevated POC lactic acid at 3.3 Imaging studies: Chest x-ray as above. Consultation: A consultation was placed with the [facility] hospitalist. The case was discussed and diagnostics were reviewed. The patient was evaluated in the ER for further treatment. This appears to be consistent with a combination of CHF exacerbation and bibasilar pneumonia. By the evaluation outlined above emergent etiologies such as CHF, cardiac ischemia, pulmonary embolism, reactive airway disease, pneumonia , pneumothorax, musculoskeletal, serious bacterial infections, as well as others were deemed relatively unlikely. 81 year old female who presents to the Emergency Room with complaints of worsening SOB and wheezing. The patient was recently discharged from [facility] last week. Complains of SOBOE and orthopnea and a cough which started about 2 days ago. Was recently discharged from the hospital and her torsemide dosage was changed from twice daily with an extra dose as needed to once daily. Per family , her lower extremity swelling had also worsened. She denied any fevers or chills, body aches and was tested negative for influenza. Chest x-ray suggestive of Cardiomegaly with evidence of congestive failure and Perihilar airspace opacities likely represent a component of interstitial edema or superimposed pneumonia. Her [id number] lactate was 3.3. EKG was unremarkable. She was given a breathing treatment thinking which seemed to improve her shortness of breath. Blood sugar was found to be elevated at 336 and the patient stated that she had not taken her insulin this morning. She was given 8 units of Regular Insulin for blood sugar was rechecked. Consultation was placed with the hospitalist for admission for further workup of her CHF exacerbation/pneumonia. She was given a dose of Zosyn. Impression Primary Impression: Shortness of breath Additional Impressions: CHF (congestive heart failure) Pneumonia Departure Information Referrals Suzanne Adams M.D. (PCP) Patient Instructions My [facility] Resident Tracking Resident Involvement: Resident Care Provided Care Provided: Adult ED Problem Qualifiers
[2017-07-22 14:20] LABS: ALBUMIN 1.8 gm/dl (3.4-5.0); CREATININE 1.19 mg/dl (0.60-1.20); POTASSIUM 4.6 mmol/L (3.5-5.1); TOTAL PROTEIN 5.4 gm/dl (6.4-8.2)
--- NOTE | 2017-07-22 14:57 | DIAGNOSTIC IMAGING REPORT ---
TWO VIEW CHEST CLINICAL HISTORY: Cough and dyspnea.. FINDINGS: AP and lateral chest radiographs are compared to study dated and correlated with chest CT dated 09/16/2015. The AP view is degraded by patient rotation. The heart is enlarged and there is atherosclerotic calcification of the thoracic aorta. There is evidence of previous mitral valve surgery. Epicardial pacing leads are noted. There is pulmonary vascular congestion. Bibasilar perihilar opacities are identified. There are small pleural effusions. There is no pneumothorax. The skeletal structures are osteopenic. The bony thorax appears intact. IMPRESSION: 1. Cardiomegaly with evidence of congestive failure. 2. Perihilar airspace opacities likely represent a component of interstitial edema. Correlate clinically for evidence of superimposed pneumonia. 3. Small pleural effusions. Electronically signed by: Gerald Perera M.D. 07/22/2017 2:56 PM Dictated Date/Time: 07/22/2017 2:54 PM
[2017-07-22 14:59] LABS: BASO % 0.4 %; BASO ABS # 0.02 K/uL (0-0.2); IG# 0.03 K/uL (0.00-0.02); LYMPH ABS # 0.73 K/uL (1.2-3.4); MONO % 6.1 %; MONO ABS # 0.28 K/uL (0.11-0.59); NEUT % 76.8 %; NEUT ABS # 3.51 K/uL (1.4-6.5)
[2017-07-22] MEDS ORDERED: INSULIN HUMAN REGULAR SC SCH (15:00)
[2017-07-22 15:20] LABS: INFLUENZA A PCR Neg for Influ A (NEG); INFLUENZA B PCR Neg for Influ B (NEG)
[2017-07-22] MEDS: ALBUT/IPRATROP 3MG/0.5MG NEB 3 ML VIAL INH SCH ×3 (15:23→23:47)
[2017-07-22] MEDS ORDERED: NovoLIN-R INSULIN PER UNIT CHARGE ONE (15:45)
[2017-07-22] MEDS ORDERED: PIPERACILLIN/TAZOBACTAM 4.5 GM/100ML D5W IV STA (17:01)
--- NOTE | 2017-07-22 17:56 | History and Physical ---
History & Physical Date & Time of Service: Jul 22, 2017 at 17:56 . Chief Complaint: weakness, cough, worsening lower extremity edema, SOB . Primary Care Physician: Suzanne Adams M.D. . History of Present Illness Source: patient, family, clinic records, hospital records 81-year-old female followed by Dr. Adams for Family Medicine and [facility]. History of nonobstructive coronary artery disease per cardiac catheterization in 2011, chronic left ventricular diastolic heart failure, mitral valve regurgitation with mitral valve repair in 2012, patent foramen ovale status post surgical closure, and other problems noted below. She was hospitalized on 07/07/17 after a fall or syncopal episode at home. Noted to have significant orthostatic hypotension despite having significant lower extremity edema. Diuretic dosing at home was torsemide 20 mg BID. Torsemide held due to orthostatic hypotension. Patient had persistent orthostatic hypotension associated with weakness/ lightheadedness, so hydralazine was discontinued. Torsemide was resumed at a reduced dose of 20 mg daily. Echocardiogram during that hospital stay demonstrated mild concentric LVH, LVEF 65-70%. There was evidence of prior mitral valve repair and annuloplasty ring, mitral calcification, mild mitral stenosis, no significant mitral regurgitation. Moderate tricuspid regurgitation and elevated systolic pulmonary pressures noted. Patient was discharged to home with instructions to take torsemide 20 mg daily with an additional dose as needed in the afternoon for worsening lower extremity edema. Since returning home, she has noted increasing lower extremity edema. She has not been following her weight closely. Did not take extra doses of torsemide in the afternoon. 2 days prior to admission she noticed a cough that was productive of clear sputum. No fever or sweats, but experienced some chills. Noted chest pain with coughing, but no anginal symptoms. Came to the ED for evaluation because of worsening symptoms. In the ED she was noted to have some blood-tinged sputum. . Past Medical/Surgical History Chronic Medical Problems: (1) CHF (congestive heart failure) Permanent Comment: due to diastolic dysfunction + valvular heart disease Status: Chronic (2) Chronic kidney disease (CKD), stage III (moderate) Status: Chronic (3) Coronary artery disease Permanent Comment: 40% LAD 2005 Status: Chronic (4) Depression Status: Chronic (5) Diabetes mellitus, type II Status: Chronic (6) Dyslipidemia Status: Chronic (7) GERD (gastroesophageal reflux disease) Status: Chronic (8) History of adenomatous polyp of colon Status: Chronic (9) History of pleural effusion Permanent Comment: s/p thoracentesis Status: Chronic (10) Hypertension Status: Chronic (11) Hypothyroidism Status: Chronic (12) Mitral valve regurgitation Status: Chronic (13) Osteoporosis Status: Chronic (14) Venous insufficiency of both lower extremities Status: Chronic Surgical Problems: (1) Status post cataract extraction Status: Chronic (2) Status post cholecystectomy Status: Chronic (3) Status post hysterectomy Status: Chronic (4) Status post mitral valve repair Status: Chronic . Family History FH: heart disease MOTHER Hypertension Social History Smoking Status: Never Smoker Alcohol Use: none Drug Use: none Marital Status: Housing status: lives with significant other Occupational Status: retired Immunizations History of Influenza Vaccine: Yes History of Tetanus Vaccine?: Yes Tetanus Immunization Date: Dec 14, 2011 History of Pneumococcal: Yes Pneumococcal Date: Dec 19, 2007 History of Hepatitis B Vaccine: Yes Multi-Drug Resistant Organisms History of MDRO: No Allergies Coded Allergies: No Known Allergies (Unverified , 07/22/17) Home Medications Scheduled Ascorbic Acid (Vitamin C), 1 TAB PO QAM Aspirin (Aspirin Chewable), 81 MG PO QAM Carvedilol (Coreg), 25 MG PO BID Cholecalciferol (Vitamin D3), 1 TAB PO QAM Insulin Aspart (Novolog Flexpen), 5 UNITS SC TID Insulin Glargine (Lantus), 5 SC QPM Levothyroxine Sodium (Levothyroxine Sodium), 1 TAB PO QAM Loratadine (Claritin), 10 MG PO QAM Magnesium Oxide (Mag-Ox), 400 MG PO BID Pantoprazole (Protonix), 40 MG PO QAM Sertraline HCl (Sertraline HCl), 50 MG PO QAM Simvastatin (Zocor), 10 MG PO QPM Torsemide (Demadex), 20 MG PO DAILY Scheduled PRN Ipratropium [place] (Atrovent 0.02% Soln), 1 DOSE INH DIRECTED PRN for Shortness of Breath Miconazole Nitrate (Desenex Shake Powder), 1 APPLN EXT UD PRN for Affected Skin Folds Tramadol (Ultram), 50 MG PO Q8H PRN for Pain Review of Systems Constitutional: + chills, No fever, No weight loss Eyes: No worsening of vision, No diplopia ENT: + nasal symptoms (Chronic nasal congestion), No sore throat Respiratory: + problem reported (As noted above in HPI) Cardiovascular: + problem reported (As noted above in HPI) Abdomen: + diarrhea (Chronic, intermittent), No pain, No nausea, No vomiting, No GI bleeding Musculoskeletal: No joint pain, No muscle pain Genitourinary - Female: No dysuria, No hematuria Neurologic: + weakness (Generalized), + problem reported (Possible diabetic neuropathy; no headaches) Endocrine: No excessive thirst, No excessive urination Hematologic / Lymphatic: + problem reported (Blood-tinged sputum today; otherwise, no abnormal bleeding or bruising) Integumentary: No rash, No new/changing skin lesions Physical Exam Vital Signs Date Time Temp Pulse Resp B/P (MAP) Pulse Ox O2 Delivery O2 Flow Rate FiO2 07/22/17 17:19 37.0 72 22 157/98 98 Room Air 07/22/17 16:18 37.0 71 22 157/98 97 Room Air 07/22/17 15:21 71 22 150/51 96 Room Air 07/22/17 14:15 71 20 175/78 95 Room Air 07/22/17 13:11 37.0 71 18 154/69 93 Room Air General Appearance: no apparent distress, + obese Head: normocephalic, atraumatic Eyes: normal inspection, PERRL, EOMI, sclerae normal, + pertinent finding ( Conjunctivae clear) ENT: normal ENT inspection, hearing grossly normal, pharynx normal, + pertinent finding (Edentulous wearing upper dentures) Neck: supple, no adenopathy, thyroid normal, trachea midline Respiratory/Chest: + rales (Bibasilar), + rhonchi (Few, scattered), + wheezing (Diffuse, mild) Cardiovascular: regular rate, rhythm, no gallop, + systolic murmur (2/6 systolic murmur left sternal border), + abnormal peripheral pulses (unable to palpate pedal pulses due to edema), + pertinent finding (+ JVD, 3+ pretibial & pedal edema) Abdomen/GI: normal bowel sounds, non tender, soft, no organomegaly Extremities/Musculoskelatal: + calf tenderness (mild bilateral), + pertinent finding (no cyanosis; no digital clubbing) Neurologic/Psych: aerologist II-XII nml as tested (PERRL, EOMI, no facial palsy, no dysarthria), no motor/sensory deficits (generalized weakness), alert, normal mood/affect, oriented x 3, + abnormal reflexes (patellar reflexes 1/2 bilaterally) Skin: normal color, warm/dry, no rash Lymphatic: no adenopathy (cervical) Diagnostics Laboratory Results Results Past 24 Hours Test 07/22/17 13:35 07/22/17 14:25 07/22/17 14:41 Range/Units White Blood Count 4.57 4.8-10.8 K/uL Red Blood Count 3.22 4.2-5.4 M/uL Hemoglobin 10.1 12.0-16.0 g/dL Hematocrit 30.4 37-47 % Mean Corpuscular Volume 94.4 80-100 fL Mean Corpuscular Hemoglobin 31.4 25-34 pg Mean Corpuscular Hemoglobin Concent 33.2 32-36 g/dl Platelet Count 195 130-400 K/uL Mean Platelet Volume 9.4 7.4-10.4 fL Neutrophils (%) (Auto) 76.8 % Lymphocytes (%) (Auto) 16.0 % Monocytes (%) (Auto) 6.1 % Eosinophils (%) (Auto) 0.0 % Basophils (%) (Auto) 0.4 % Neutrophils # (Auto) 3.51 1.4-6.5 K/uL Lymphocytes # (Auto) 0.73 1.2-3.4 K/uL Monocytes # (Auto) 0.28 0.11-0.59 K/uL Eosinophils # (Auto) 0.00 0-0.5 K/uL Basophils # (Auto) 0.02 0-0.2 K/uL RDW Standard Deviation 53.4 36.4-46.3 fL RDW Coefficient of Variation 15.4 11.5-14.5 % Immature Granulocyte % (Auto) 0.7 % Immature Granulocyte # (Auto) 0.03 0.00-0.02 K/uL Sodium Level 136 136-145 mmol/L Potassium Level 4.6 3.5-5.1 mmol/L Chloride Level 100 98-107 mmol/L Carbon Dioxide Level 26 21-32 mmol/L Anion Gap 10.0 3-11 mmol/L Blood Urea Nitrogen 15 7-18 mg/dl Creatinine 1.19 0.60-1.20 mg/dl Est Creatinine Clear Calc Drug Dose 39.0 ml/min Estimated GFR () 50.3 Estimated GFR (Non- 43.4 BUN/Creatinine Ratio 12.6 10-20 Random Glucose 376 70-99 mg/dl Calcium Level 8.0 8.5-10.1 mg/dl Total Bilirubin 0.3 0.2-1 mg/dl Aspartate Amino Transf (AST/SGOT) 41 15-37 U/L Alanine Aminotransferase (ALT/SGPT) 31 12-78 U/L Alkaline Phosphatase 47 45-117 U/L Troponin I 0.022 0-0.045 ng/ml Pro-B-Type Natriuretic Peptide 7756 0-1800 pg/ml Total Protein 5.4 6.4-8.2 gm/dl Albumin 1.8 3.4-5.0 gm/dl Globulin 3.6 2.5-4.0 gm/dl Albumin/Globulin Ratio 0.5 0.9-2 Beta-Hydroxybutyric Acid 1.44 0.2-2.81 mg/dL Influenza Type A (RT-PCR) Neg for Influ A NEG Influenza Type B (RT-PCR) Neg for Influ B NEG Bedside Lactic Acid Venous 3.31 0.90-1.70 mmol/L Microbiology Results 07/22/17 Blood Culture, Received Pending 07/22/17 Blood Culture, Received Pending Diagnostic Radiology TWO VIEW CHEST FINDINGS: AP and lateral chest radiographs are compared to study dated and correlated with chest CT dated 09/16/2015. The AP view is degraded by patient rotation. The heart is enlarged and there is atherosclerotic calcification of the thoracic aorta. There is evidence of previous mitral valve surgery. Epicardial pacing leads are noted. There is pulmonary vascular congestion. Bibasilar perihilar opacities are identified. There are small pleural effusions. There is no pneumothorax. The skeletal structures are osteopenic. The bony thorax appears intact. IMPRESSION: 1. Cardiomegaly with evidence of congestive failure. 2. Perihilar airspace opacities likely represent a component of interstitial edema. Correlate clinically for evidence of superimposed pneumonia. 3. Small pleural effusions. Electronically signed by: Gerald Perera M.D. 07/22/2017 2:56 PM . EKG EKG performed at 1504 reviewed and demonstrated normal sinus rhythm at 70/minute , no acute ST or T-wave abnormalities. . Impression Assessment and Plan CHF History of chronic left ventricular diastolic heart failure. Exam, chest x-ray, BMP consistent with acute decompensation. Torsemide dose recently changed from BID to daily due to significant orthostatic hypotension. Recent echocardiogram showed LVEF 65-70%. No need to repeat at this time. IV furosemide BID. Follow symptoms, exam, weights, orthostatic vital signs, labs. COUGH Experiencing cough for the past 2 days. Cough productive of clear sputum, blood-tinged in the ED. No fever. No leukocytosis. Chest x-ray demonstrated densities felt to be most consistent with interstitial edema. Blood cultures were obtained in the ED and patient received a dose of intravenous piperacillin/tazobactam. Uncertain whether or not patient has a lower respiratory tract infection. Check pro-calcitonin. Treatment with doxycycline for possible bronchitis. Broaden coverage if pro-calcitonin elevated or symptoms worsen. HYPERTENSION Hydralazine recently discontinued due to orthostatic hypotension. Continue carvedilol. LOWER EXTREMITY EDEMA Chronic lower extremity edema, probably due to venous insufficiency and CHF. Prone to orthostatic hypotension. Continue diuretics as tolerated. Elastic stockings. DM TYPE 2 Not always well-controlled at home. Hgb A1C = 12.2 Had episodes of hypoglycemia during recent hospital stay requiring modification of insulin regimen. Continue Lantus/NovoLog. DYSLIPIDEMIA Continue simvastatin. HYPOTHYROIDISM Recent TSH normal. Continue levothyroxine. CALF TENDERNESS Check venous duplex of lower extremities to rule out DVT. VTE PROPHYLAXIS Moderate risk for VTE. SQ enoxaparin with caution in light of hemoptysis. Ambulate. RESUSCITATION STATUS Discussed with patient. She has a living will. She would like resuscitation attempted in the event of a cardiopulmonary arrest if there is a reasonable chance of a meaningful recovery, but does not want prolonged extraordinary measures if prognosis is poor. Therefore, code status = "Level 1" (full resuscitation). DISPOSITION Admit to Telemetry Unit. Expected discharge to home. Family Medicine follow-up with Dr. Adams. Cardiology follow-up with [facility] providers. . VTE Prophylaxis VTE Risk Assessment Done? Y/N: Yes Risk Level: Moderate Given or contraindicated: Enoxaparin (Lovenox)SQ
[2017-07-22] MEDS ORDERED: ONDANSETRON INJ 2 MG/ML 2 ML VIAL IV PRN (18:00)
[2017-07-22] MEDS ORDERED: ACETAMINOPHEN 325 MG TAB PO PRN (18:00)
[2017-07-22] MEDS ORDERED: MICONAZOLE NITRATE POWDER 43 GM EXT PRN (18:45)
[2017-07-22 19:01] VITALS: BP 186/77; PULSE 75; TEMP 37.4; O2SAT 99; BMI 32.8
[2017-07-22] MEDS ORDERED: FUROSEMIDE INJ 40 MG in SYRINGE 0 ML IV ONE (19:30)
[2017-07-22] MEDS ORDERED: GLUCOSE 40% GEL 15 GM TUBE PO PRN (19:45)
[2017-07-22] MEDS ORDERED: GLUCOSE 10 TABS/TUBE PO PRN (19:45)
[2017-07-22] MEDS ORDERED: DEXTROSE 50% 50 ML SYR IV PRN (19:45)
[2017-07-22] MEDS ORDERED: GLUCAGON FOR INJ 1 MG VIAL SQ PRN (19:45)
[2017-07-22] MEDS ORDERED: SIMVASTATIN 10 MG TAB PO SCH (21:00)
--- NOTE | 2017-07-22 21:05 | DIAGNOSTIC IMAGING REPORT ---
VENOUS DOPPLER LWR EXT BILA HISTORY: Pain. Edema. bilateral calf pain COMPARISON STUDY: None. FINDINGS: There is normal compressibility, flow, and augmentation within the bilateral lower extremity deep venous systems. IMPRESSION: No DVT within the right or left lower extremity. The above report was generated using voice recognition software. It may contain grammatical, syntax or spelling errors. Electronically signed by: Vj Rinaldi M.D. 07/22/2017 9:04 PM Dictated Date/Time: 07/22/2017 9:04 PM
[2017-07-22] MEDS: MAGNESIUM OXIDE 400 MG TAB PO SCH (21:14)
[2017-07-22] MEDS: CARVEDILOL 25 MG TAB PO SCH (21:14)
[2017-07-22] MEDS: TRAMADOL HCL 50 MG TAB PO PRN (21:17)
[2017-07-22] MEDS: INSULIN GLARGINE SOLOSTAR 100 UNITS/ML 3 ML PEN SC SCH (21:48)
[2017-07-22] MEDS: INSULIN ASPART 100 UNITS/ML 3 ML PEN SC SCH (21:48)
[2017-07-22 22:35] LABS: INR 1.2 (0.9-1.1); PTT PATIENT 26.6 SECONDS (21.0-31.0)
[2017-07-22 23:47] VITALS: PULSE 84; O2SAT 94
[2017-07-22 23:48] VITALS: BP 134/71; PULSE 71; TEMP 37.3; O2SAT 93
[2017-07-23] VITALS (7 sets, daily range): BP systolic 115–162; BP diastolic 56–71; PULSE 64–74; TEMP 37.1–37.6; O2SAT 92–98; BMI 32.4
[2017-07-23 06:37] LABS: HEMATOCRIT 29.5 % (37-47); HEMOGLOBIN 9.8 g/dL (12.0-16.0); MEAN CELL VOLUME 92.5 fL (80-100); MEAN CORPUSCULAR HEMOGLOBIN 30.7 pg (25-34); MEAN CORPUSCULAR HGB CONC 33.2 g/dl (32-36); MEAN PLATELET VOLUME 9.2 fL (7.4-10.4); PLATELET COUNT 181 K/uL (130-400); RED CELL DISTRIBUTION WIDTH CV 15.3 % (11.5-14.5); WHITE BLOOD COUNT 4.28 K/uL (4.8-10.8)
[2017-07-23] MEDS: INSULIN ASPART 100 UNITS/ML 3 ML PEN SC SCH ×4 (07:00→21:48)
[2017-07-23] MEDS ORDERED: DOXYCYCLINE HYCLATE 100 MG CAP PO SCH (07:00)
[2017-07-23 07:01] LABS: CALCIUM 7.6 mg/dl (8.5-10.1); CREATININE 0.97 mg/dl (0.60-1.20); POTASSIUM 4.1 mmol/L (3.5-5.1)
[2017-07-23] MEDS: ENOXAPARIN 30 MG/0.3 ML SYR SC SCH (08:37)
[2017-07-23] MEDS: FUROSEMIDE INJ 40 MG in SYRINGE 0 ML IV SCH ×2 (08:37→17:28)
[2017-07-23] MEDS: PANTOprazole SOD 40 MG TAB PO SCH (08:38)
[2017-07-23] MEDS: ASPIRIN 81 MG ECTAB PO SCH (08:38)
[2017-07-23] MEDS: SERTRALINE HCL 50 MG TAB PO SCH (08:38)
[2017-07-23] MEDS: LEVOTHYROXINE 200 MCG TAB PO SCH (08:38)
[2017-07-23] MEDS: LORATADINE 10 MG TAB PO SCH (08:38)
[2017-07-23] MEDS: MAGNESIUM OXIDE 400 MG TAB PO SCH ×2 (08:38→19:19)
[2017-07-23] MEDS: CARVEDILOL 25 MG TAB PO SCH ×2 (08:38→19:19)
--- NOTE | 2017-07-23 08:58 | Clinical Documentation Query ---
FAVIO Heller : CLINICAL DOCUMENTATION QUERY Patient is a 81 year old female admitted for treatment of acute on chronic diastolic CHF. Historical EMR documentation includes a diagnosis of CKD stage 3. This was not reiterated on this admission. Estimated GFR range less than 60 ml/min dating back at least to 03/13/15 per EMR. Please clarify as clinically appropriate as this directly impacts DRG assignment, associated severity of illness and risk of mortality. Thank you. In your clinical opinion is this patient being managed for: ( x ) Chronic kidney disease, stage 3 ( ) Not Agree ( ) Other explanation of clinical findings (Please Explain) ( ) Unable to determine (Please Define) ( ) Need to Discuss The medical record reflects the following clinical findings, treatment, and risk factors. Clinical Indicators: As above Treatment: Serial chemistries Risk Factors: Age, chronic diastolic CHF, diuretics, DM, hypertension. Please clarify and document your clinical opinion in the progress notes and discharge summary. Terms such as "probable", "suspected", "likely", "questionable", "possible", or "still to be ruled out" are acceptable. IF IN AGREEMENT, YOU MUST DOCUMENT ABOVE DIAGNOSTIC STATEMENT IN DAILY PROGRESS NOTES AND DISCHARGE SUMMARY. This document is not part of the patient's record. Thank You, William Negrete, RN [phone]
--- NOTE | 2017-07-23 10:18 | Cardiology Consultation ---
Cardiology Consultation Date of Consultation: Jul 23, 2017 Requesting Physician: Naheed Attending Valet Cashier: Timmy (Vj Acevedo PA-C) History of Present Illness Ms. Gunter is a complex 81 year old female who is being seen at the request of Dr. Farfan. Reason for consultation is congestive heart failure. Patient recently hospitalized at [facility] July 07, 2017 to July 17, 2017 with undefined syncope following a fall at home. Orthostatic hypotension was observed at that time for which torsemide was decreased to 20 mg /day (prior home dose was 60 mg 4 days per week, 40 mg three days per week) and hydralazine was discontinued. Patient notes feeling fine on Saturday, July 19, 2017. She notes that a Home Health Nurse visited on Saturday and commented that her lungs were clear. Saturday morning she began to feel as though she was not breathing correctly. This became progressively worse. Saturday another Home Health Nurse visited and noted considerable decline, referring the patient to the ER for further evaluation and treatment. Patient notes a cough intermittently productive of blood tinged sputum, chest congestion, increased dyspnea, orthopnea, chills, sweats, decreased taste, decreased appetite, generalized malaise and fatigue, increased pain in the legs , and increased peripheral edema. No chest pain, palpitations, PND, fevers, rash , dizziness, or further syncope. (Vj Acevedo PA-C) Past Medical/Surgical History Problem List: Diastolic congestive heart failure. Recurrent pleural effusions requiring multiple thoracentesis. Mitral regurgitation due to prolapse of the P2 segment of the posterior mitral valve. Status post 12/05/2012 minimally invasive mitral valve repair with resection of the P2 leaflet and placement of a 31 mm Conklin mitral valve annuloplasty Patent foramen ovale status post surgical close at the time of mitral valve repair. October 15, 2011 diagnostic cardiac catheterization at [facility] demonstrating minimal nonobstructive CAD with mild pulmonary hypertension Chronic lymphedema Rheumatic fever as a child Type II diabetes mellitus Hypertension Dyslipidemia Hypothyroidism Depression Stage III CKD Venous insufficiency of both lower extremities Pulmonary nodule Gastroesophageal reflux disease Diaphragmatic hernia Obesity. Suspected sleep apnea with evaluation refused. Osteoporosis Hysterectomy Cholecystectomy Bilateral cataract extraction History of adenomatous polyp of colon (Vj Acevedo PA-C) Family History FH: heart disease MOTHER Hypertension Father at 59, MVA. Mother at 74, possibly [place]. Brother with valvular disease. (Vj Acevedo PA-C) FH: heart disease MOTHER Hypertension (Shamir Warner M.D.) Social History Lifelong nonsmoker. No significant alcohol. No illegal drug use. Occupation: retired (Vj Acevedo PA-C) Review Of Systems General: + Chills. + Sweats. Denies fevers. ? change in weight HEENT: + headaches. No head trauma. Cardiovascular: See above. Pulmonary: See above. Gastrointestinal: Diarrhea when consuming aspartame. No melena or hematochezia. Skin: No rash. Musculoskeletal: Bilateral leg pain. Neurological: Denies history of seizures Complete review of systems is as stated above, negative, or noncontributory. (Vj Acevedo PA-C) Allergies Coded Allergies: No Known Allergies (Unverified , 07/22/17) Medications Reported Home Medications Medications Dose Route/Sig Max Daily Dose Days Date Category Dose Instructions Desenex Shake Powder (Miconazole Nitrate) 43 Appln/43 Gm Powd 1 Appln EXT UD PRN 7 07/17/17 Rx Sertraline HCl 50 Mg Tab 50 Mg PO QAM 30 07/17/17 Rx Demadex (Torsemide) 20 Mg Tab 20 Mg PO DAILY 30 07/17/17 Rx Lantus (Insulin Glargine) 100 Unit/Ml Inj 5 SC QPM 06/10/17 Reported Claritin (Loratadine) 10 Mg Tab 10 Mg PO QAM 06/06/17 Reported Vitamin D3 (Cholecalciferol) 2,000 Unit Tab 1 Tab PO QAM 04/22/17 Reported Vitamin C (Ascorbic Acid) 500 Mg Tab 1 Tab PO QAM 04/22/17 Reported Aspirin Chewable (Aspirin) 81 Mg Chew 81 Mg PO QAM 04/22/17 Reported Atrovent 0.02% Soln (Ipratropium [place]) 2.5 Ml Nebu 1 Dose INH DIRECTED PRN 04/22/17 Reported Coreg (Carvedilol) 25 Mg Tab 25 Mg PO BID 04/22/17 Reported Levothyroxine Sodium 200 Mcg Tab 1 Tab PO QAM 90 04/22/17 Reported Zocor (Simvastatin) 10 Mg Tab 10 Mg PO QPM 04/22/17 Reported Ultram (Tramadol HCl) 50 Mg Tab 50 Mg PO Q8H PRN 04/22/17 Reported Novolog Flexpen (Insulin Aspart) 100 Units/Ml Inj 5 Units SC TID 04/22/17 Reported with each meal Mag-Ox (Magnesium Oxide) 400 Mg Tab 400 Mg PO BID 04/22/17 Reported Protonix (Pantoprazole Sodium) 40 Mg Tab 40 Mg PO QAM 04/22/17 Reported (Vj Acevedo PA-C) Physical Exam Vital Signs (Last 8hrs): Last 8 Hrs Date Time Temp Pulse Resp B/P (MAP) Pulse Ox O2 Delivery O2 Flow Rate FiO2 07/23/17 08:00 Nasal Cannula 2.0 07/23/17 07:21 37.1 71 22 162/69 (100) 98 07/23/17 04:20 37.6 70 20 137/69 (91) 92 Nasal Cannula 2.0 07/23/17 04:00 Room Air General Appearance: Alert and Oriented x3. NAD. HEENT: Normocephalic Atraumatic. PER, EOMI, conjunctiva and sclera clear Neck: + Elevated JVP. + HJR. No carotid bruits appreciated. Respiratory: Diffuse rales, rhonchi and faint expiratory wheezing. Cardiovascular: Distant heart sounds. Regular with rare ectopic beat. I could not appreciate a murmur. No rub. Abdomen: +BS. Soft. Nontender. Extremities: 1+ edema. Erythema to the mid ryder. Diffuse tenderness to mid palpation. No clubbing. No cyanosis. Neuro: No focal deficits. Psychiatric: Flat affect. (Vj Acevedo PA-C) Data Last 24 Hours Test 07/22/17 13:35 07/22/17 14:25 07/22/17 14:41 07/22/17 17:14 White Blood Count 4.57 K/uL Red Blood Count 3.22 M/uL Hemoglobin 10.1 g/dL Hematocrit 30.4 % Mean Corpuscular Volume 94.4 fL Mean Corpuscular Hemoglobin 31.4 pg Mean Corpuscular Hemoglobin Concent 33.2 g/dl Platelet Count 195 K/uL Mean Platelet Volume 9.4 fL Neutrophils (%) (Auto) 76.8 % Lymphocytes (%) (Auto) 16.0 % Monocytes (%) (Auto) 6.1 % Eosinophils (%) (Auto) 0.0 % Basophils (%) (Auto) 0.4 % Neutrophils # (Auto) 3.51 K/uL Lymphocytes # (Auto) 0.73 K/uL Monocytes # (Auto) 0.28 K/uL Eosinophils # (Auto) 0.00 K/uL Basophils # (Auto) 0.02 K/uL RDW Standard Deviation 53.4 fL RDW Coefficient of Variation 15.4 % Immature Granulocyte % (Auto) 0.7 % Immature Granulocyte # (Auto) 0.03 K/uL Sodium Level 136 mmol/L Potassium Level 4.6 mmol/L Chloride Level 100 mmol/L Carbon Dioxide Level 26 mmol/L Anion Gap 10.0 mmol/L Blood Urea Nitrogen 15 mg/dl Creatinine 1.19 mg/dl Est Creatinine Clear Calc Drug Dose 39.0 ml/min Estimated GFR () 50.3 Estimated GFR (Non- 43.4 BUN/Creatinine Ratio 12.6 Random Glucose 376 mg/dl Calcium Level 8.0 mg/dl Total Bilirubin 0.3 mg/dl Aspartate Amino Transf (AST/SGOT) 41 U/L Alanine Aminotransferase (ALT/SGPT) 31 U/L Alkaline Phosphatase 47 U/L Troponin I 0.022 ng/ml Pro-B-Type Natriuretic Peptide 7756 pg/ml Total Protein 5.4 gm/dl Albumin 1.8 gm/dl Globulin 3.6 gm/dl Albumin/Globulin Ratio 0.5 Beta-Hydroxybutyric Acid 1.44 mg/dL Influenza Type A (RT-PCR) Neg for Influ A Influenza Type B (RT-PCR) Neg for Influ B Bedside Lactic Acid Venous 3.31 mmol/L Bedside Glucose 358 mg/dl Test 07/22/17 19:06 07/22/17 22:00 07/22/17 23:01 07/23/17 06:14 Bedside Glucose 269 mg/dl Prothrombin Time 12.5 SECONDS Prothromb Time International Ratio 1.2 Activated Partial Thromboplast Time 26.6 SECONDS Partial Thromboplastin Ratio 1.0 Troponin I 0.021 ng/ml 0.025 ng/ml Procalcitonin < 0.05 ng/ml Lactic Acid Level 1.6 mmol/L White Blood Count 4.28 K/uL Red Blood Count 3.19 M/uL Hemoglobin 9.8 g/dL Hematocrit 29.5 % Mean Corpuscular Volume 92.5 fL Mean Corpuscular Hemoglobin 30.7 pg Mean Corpuscular Hemoglobin Concent 33.2 g/dl RDW Standard Deviation 51.0 fL RDW Coefficient of Variation 15.3 % Platelet Count 181 K/uL Mean Platelet Volume 9.2 fL Sodium Level 137 mmol/L Potassium Level 4.1 mmol/L Chloride Level 101 mmol/L Carbon Dioxide Level 29 mmol/L Anion Gap 7.0 mmol/L Blood Urea Nitrogen 12 mg/dl Creatinine 0.97 mg/dl Est Creatinine Clear Calc Drug Dose 46.2 ml/min Estimated GFR () 64.4 Estimated GFR (Non- 55.5 BUN/Creatinine Ratio 12.8 Random Glucose 98 mg/dl Calcium Level 7.6 mg/dl Test 07/23/17 06:43 Bedside Glucose 97 mg/dl July 15, 2017 TTE Interpretation Summary ([facility], Dr. Sosa): Ejection Fraction = 65-70%. There is mild concentric left ventricular hypertrophy. The left atrium is moderately dilated. Mild aortic regurgitation. There is a prior mitral valve repair and annuloplasty ring. The anterior leaflet is thickened and mobile while the posterior leaflet is calcified with severely reduced mobility. There is mild mitral stenosis. Significant mitral regurgitation is absent. There is moderate tricuspid regurgitation. The estimated systolic PAP is 47mmHg. EKG dated and timed 22-JUL-2017 @ 15:04:31: Normal sinus rhythm at 68 bpm EKG dated and timed 23-JUL-2017 @ 06:38:02: NOrmal sinus rhythm with a low atrial focus. Telemetry: Sinus in the 70's currently. Atrial and ventricular ectopy in singles as well as bigeminy. No atrial fibrillation or flutter. Admission CXR with cardiomegaly with evidence of congestive failure, perihilar airspace opacities likely represent a component of interstitial edema, and small pleural effusions. Venous duplex on admission showed no DVT within the right or left lower extremity. (Vj Acevedo PA-C) Assessment & Plan Complex 81 year old female admitted with evidence of an significant acute ( probable viral) respiratory infection and mild acute decompensated diastolic congestive heart failure following recent hospitalization with undefined syncope , orthostatic hypotension requiring reduction in diuretic therapy. RECOMMENDATIONS: Treatment of the respiratory infection as per the Hospitalist Service Continue IV furosemide through today, reassessing need for ongoing use in the morning. Continue carvedilol and ASA Change simvastatin to atorvastatin (Vj Acevedo PA-C) Patient seen and examined, assessment as above. Mixed respiratory distress as noted Will continue diuresis cautiously while treating respiratory issues Shamir Warner MD (Shamir Warner M.D.)
--- NOTE | 2017-07-23 18:40 | Progress Note ---
Medicine Progress Note Date & Time of Visit: Jul 23, 2017 at 1600. Subjective 81 yo F presents with cough and worsening dyspnea after recent discharge for CHF exacerbation. -doing OK -feels breathing is better since admission -still admits to cough, nonprod and chills present -distressed about missing her MOW appt tomorrow -discussed her weight loss and apathy toward food. Objective Last 8 Hrs Date Time Temp Pulse Resp B/P (MAP) Pulse Ox O2 Delivery O2 Flow Rate FiO2 07/23/17 16:00 Room Air 07/23/17 14:52 72 20 121/69 (86) 95 Room Air 07/23/17 14:51 73 20 115/67 (83) 96 Room Air 07/23/17 14:48 64 20 150/69 (96) 96 Room Air 07/23/17 12:00 Room Air 07/23/17 11:28 37.4 74 18 125/71 (89) 93 Room Air Physical Exam: GEN: WNWD, in no acute distress, alert and appropriate HEENT: NC/AT, normal sclerae, MMM CARDIO: reg rate, S1/2 heard without m/g/r LUNGS: rhonchi at bases ABD: soft, non-tender, non-distended, no rebound or guarding EXTREMITY: RP and DP palpable 2+ bilat, bilateral pedal edema present, extremities are warm and well-perfused NEURO: CN 2-12 grossly intact, no gross focal deficits. MUSC: moves all extremities equally, no gross focal deficits SKIN: warm and dry Laboratory Results: 07/23/17 06:14 07/23/17 06:14 Test 07/22/17 13:35 07/22/17 14:25 07/22/17 14:41 07/22/17 22:00 Immature Granulocyte % (Auto) 0.7 % White Blood Count 4.57 K/uL (4.8-10.8) Red Blood Count 3.22 M/uL (4.2-5.4) Hemoglobin 10.1 g/dL (12.0-16.0) Hematocrit 30.4 % (37-47) Mean Corpuscular Volume 94.4 fL (80-100) Mean Corpuscular Hemoglobin 31.4 pg (25-34) Mean Corpuscular Hemoglobin Concent 33.2 g/dl (32-36) Platelet Count 195 K/uL (130-400) Mean Platelet Volume 9.4 fL (7.4-10.4) Neutrophils (%) (Auto) 76.8 % Lymphocytes (%) (Auto) 16.0 % Monocytes (%) (Auto) 6.1 % Eosinophils (%) (Auto) 0.0 % Basophils (%) (Auto) 0.4 % Neutrophils # (Auto) 3.51 K/uL (1.4-6.5) Lymphocytes # (Auto) 0.73 K/uL (1.2-3.4) Monocytes # (Auto) 0.28 K/uL (0.11-0.59) Eosinophils # (Auto) 0.00 K/uL (0-0.5) Basophils # (Auto) 0.02 K/uL (0-0.2) Immature Granulocyte # (Auto) 0.03 K/uL (0.00-0.02) Total Bilirubin 0.3 mg/dl (0.2-1) Aspartate Amino Transf (AST/SGOT) 41 U/L (15-37) Alanine Aminotransferase (ALT/SGPT) 31 U/L (12-78) Alkaline Phosphatase 47 U/L (45-117) Pro-B-Type Natriuretic Peptide 7756 pg/ml (0-1800) Total Protein 5.4 gm/dl (6.4-8.2) Albumin 1.8 gm/dl (3.4-5.0) Globulin 3.6 gm/dl (2.5-4.0) Albumin/Globulin Ratio 0.5 (0.9-2) Beta-Hydroxybutyric Acid 1.44 mg/dL (0.2-2.81) Influenza Type A (RT-PCR) Neg for Influ A (NEG) Influenza Type B (RT-PCR) Neg for Influ B (NEG) Bedside Lactic Acid Venous 3.31 mmol/L (0.90-1.70) Prothrombin Time 12.5 SECONDS (9.0-12.0) Prothromb Time International Ratio 1.2 (0.9-1.1) Activated Partial Thromboplast Time 26.6 SECONDS (21.0-31.0) Partial Thromboplastin Ratio 1.0 Procalcitonin < 0.05 ng/ml (0-0.5) Test 07/22/17 23:01 07/23/17 06:14 07/23/17 16:19 Lactic Acid Level 1.6 mmol/L (0.4-2.0) Red Blood Count 3.19 M/uL (4.2-5.4) Mean Corpuscular Volume 92.5 fL (80-100) Mean Corpuscular Hemoglobin 30.7 pg (25-34) Mean Corpuscular Hemoglobin Concent 33.2 g/dl (32-36) RDW Standard Deviation 51.0 fL (36.4-46.3) RDW Coefficient of Variation 15.3 % (11.5-14.5) Mean Platelet Volume 9.2 fL (7.4-10.4) Anion Gap 7.0 mmol/L (3-11) Est Creatinine Clear Calc Drug Dose 46.2 ml/min Estimated GFR () 64.4 Estimated GFR (Non- 55.5 BUN/Creatinine Ratio 12.8 (10-20) Calcium Level 7.6 mg/dl (8.5-10.1) Troponin I 0.025 ng/ml (0-0.045) Bedside Glucose 164 mg/dl (70-90) Date/Time Source Procedure Growth Status 07/22/17 14:34 Blood Blood Culture Pending Received 07/22/17 19:30 Nasal MRSA DNA Surveillance Screen - Final Specimen Negative for MRSA by DNA Probe Complete Last 24 Hours Test 07/22/17 19:06 07/22/17 22:00 07/22/17 23:01 07/23/17 06:14 Bedside Glucose 269 mg/dl Prothrombin Time 12.5 SECONDS Prothromb Time International Ratio 1.2 Activated Partial Thromboplast Time 26.6 SECONDS Partial Thromboplastin Ratio 1.0 Troponin I 0.021 ng/ml 0.025 ng/ml Procalcitonin < 0.05 ng/ml Lactic Acid Level 1.6 mmol/L White Blood Count 4.28 K/uL Red Blood Count 3.19 M/uL Hemoglobin 9.8 g/dL Hematocrit 29.5 % Mean Corpuscular Volume 92.5 fL Mean Corpuscular Hemoglobin 30.7 pg Mean Corpuscular Hemoglobin Concent 33.2 g/dl RDW Standard Deviation 51.0 fL RDW Coefficient of Variation 15.3 % Platelet Count 181 K/uL Mean Platelet Volume 9.2 fL Sodium Level 137 mmol/L Potassium Level 4.1 mmol/L Chloride Level 101 mmol/L Carbon Dioxide Level 29 mmol/L Anion Gap 7.0 mmol/L Blood Urea Nitrogen 12 mg/dl Creatinine 0.97 mg/dl Est Creatinine Clear Calc Drug Dose 46.2 ml/min Estimated GFR () 64.4 Estimated GFR (Non- 55.5 BUN/Creatinine Ratio 12.8 Random Glucose 98 mg/dl Calcium Level 7.6 mg/dl Test 07/23/17 06:43 07/23/17 11:13 07/23/17 16:19 Bedside Glucose 97 mg/dl 239 mg/dl 164 mg/dl Date/Time Source Procedure Growth Status 07/22/17 19:30 Nasal MRSA DNA Surveillance Screen - Final Specimen Negative for MRSA by DNA Probe Complete Assessment & Plan 81 yo F presents with cough and worsening dyspnea after recent discharge for CHF exacerbation. 1. SOB 2/2 HCAP vs acute diastolic CHF exacerbation-difficult to understand the nitus here as she appeared compensated prior to recent departure. She reports not being able to taste and, therefore, cannot tell if she is eating a high salt diet. She has also had chronic nausea with a resultant 30lb weight loss on account of not eating and apathy toward food. HCAP is possible with CXR revealing poss overlying infiltrative disease on CXR. Additionally she is reporting some chills and persistent cough. She overall doesn't appear much better on the doxycycline. Will stop doxy and start Rocephin and Azithromycin. Awaiting blood cultures. For CHF exacerbation, cont Lasix BID IV per [facility] 2. HTN-at goal. Hydralazine was recently stopped 2/2 orthostatic hypotension. Cont Coreg. 3. DMII-Glargine/ISS with carb coverage. Meeting inpatient goals. 4. Hypothyroidism-synthroid per home regimen 5. Anemia-chronic, stable. no evidence of bleeding. Likely related to frequent phlebotomy while inpatient during last two admissions which were back to back. VTE PROPHYLAXIS: Lovenox Full Code Dispo-cont telemetry monitoring. She is concerned about missing her MOW introduction tomorrow. Will get together with CM on that. DO Maricarmen Nair Hospitalist Consultants: Miroslava Current Inpatient Medications: Current Inpatient Medications Medications (Trade) Dose Ordered Sig/Ethel Route Start Time Stop Time Status Last Admin Dose Admin Enoxaparin Sodium (Lovenox Inj) 30 mg DAILY SC 07/23/17 09:00 08/22/17 08:59 07/23/17 08:37 30 MG Acetaminophen (Tylenol Tab) 650 mg Q4H PRN PO 07/22/17 18:00 08/21/17 17:59 Ondansetron HCl (Zofran Inj) 4 mg Q6H PRN IV 07/22/17 18:00 08/21/17 17:59 Aspirin (Ecotrin Tab) 81 mg QAM PO 07/23/17 09:00 08/22/17 08:59 07/23/17 08:38 81 MG Carvedilol (Coreg Tab) 25 mg BID PO 07/22/17 21:00 08/21/17 20:59 07/23/17 08:38 25 MG Insulin Glargine (Lantus Solostar Pen) 5 units QPM SC 07/22/17 21:00 08/21/17 20:59 07/22/17 21:48 5 UNITS Levothyroxine Sodium (Synthroid Tab) 200 mcg DAILYBB PO 07/23/17 09:00 08/22/17 08:59 07/23/17 08:38 200 MCG Loratadine (Claritin Tab) 10 mg QAM PO 07/23/17 09:00 08/22/17 08:59 07/23/17 08:38 10 MG Magnesium Oxide (Mag-Ox Tab) 400 mg BID PO 07/22/17 21:00 08/21/17 20:59 07/23/17 08:38 400 MG Miconazole Nitrate (Desenex Powder) 1 appln UD PRN EXT 07/22/17 18:45 08/21/17 18:44 Pantoprazole Sodium (Protonix Tab) 40 mg QAM PO 07/23/17 09:00 08/22/17 08:59 07/23/17 08:38 40 MG Sertraline HCl (Zoloft Tab) 50 mg QAM PO 07/23/17 09:00 08/22/17 08:59 07/23/17 08:38 50 MG Tramadol HCl (Ultram Tab) 50 mg Q8H PRN PO 07/22/17 18:45 08/21/17 18:44 07/22/17 21:17 50 MG Insulin Aspart (novoLOG ASPART) SLIDING SCALE G... ACHS SC 07/22/17 21:00 08/21/17 20:59 07/23/17 17:29 2 UNITS Glucose (Glucose 40% Gel) 15-30 GRAMS 15 GRAMS... UD PRN PO 07/22/17 19:45 08/21/17 19:44 Glucose (Glucose Chew Tab) 4-8 Tablets 4 Tabl... UD PRN PO 07/22/17 19:45 08/21/17 19:44 Dextrose (Dextrose 50% 50ML Syringe) 25-50ML OF 50% DW IV FOR... UD PRN IV 07/22/17 19:45 08/21/17 19:44 Glucagon (Glucagon Inj) 1 mg UD PRN SQ 07/22/17 19:45 08/21/17 19:44 Furosemide 40 mg/ Syringe 4 ml @ 4 mls/min BID@0900,1500 IV 07/23/17 09:00 08/22/17 08:59 07/23/17 17:28 4 MLS/MIN Doxycycline Hyclate (Vibramycin Cap) 100 mg BID PO 07/23/17 07:00 07/30/17 06:59 07/23/17 06:28 100 MG Atorvastatin Calcium (Lipitor Tab) 10 mg QAM PO 07/24/17 09:00 08/23/17 08:59
[2017-07-23] MEDS: CEFTRIAXONE SOD INJ 1 GM in DEXTROSE 5% ADD-VANTAGE 50ML 50 ML IV SCH (19:18)
[2017-07-23] MEDS ORDERED: AZITHROMYCIN IV 500 MG in DEXTROSE 5% 250ML 250 ML IV SCH (20:00)
[2017-07-23] MEDS: INSULIN GLARGINE SOLOSTAR 100 UNITS/ML 3 ML PEN SC SCH (21:47)
[2017-07-24] VITALS (7 sets, daily range): BP systolic 102–146; BP diastolic 66–80; PULSE 58–68; TEMP 34.6–36.7; O2SAT 95–99
[2017-07-24] MEDS: LEVOTHYROXINE 200 MCG TAB PO SCH (06:23)
[2017-07-24] MEDS: INSULIN ASPART 100 UNITS/ML 3 ML PEN SC SCH ×4 (07:00→20:13)
[2017-07-24 07:25] LABS: CALCIUM 7.4 mg/dl (8.5-10.1); CREATININE 1.02 mg/dl (0.60-1.20); POTASSIUM 3.9 mmol/L (3.5-5.1)
[2017-07-24] MEDS: LORATADINE 10 MG TAB PO SCH (08:10)
[2017-07-24] MEDS: FUROSEMIDE INJ 40 MG in SYRINGE 0 ML IV SCH ×2 (08:10→15:48)
[2017-07-24] MEDS: ATORVASTATIN 10 MG TAB PO SCH (08:11)
[2017-07-24] MEDS: CARVEDILOL 25 MG TAB PO SCH ×2 (08:11→20:10)
[2017-07-24] MEDS: ASPIRIN 81 MG ECTAB PO SCH (08:11)
[2017-07-24] MEDS: PANTOprazole SOD 40 MG TAB PO SCH (08:12)
[2017-07-24] MEDS: MAGNESIUM OXIDE 400 MG TAB PO SCH ×2 (08:12→20:10)
[2017-07-24] MEDS: SERTRALINE HCL 50 MG TAB PO SCH (08:12)
[2017-07-24] MEDS: ENOXAPARIN 30 MG/0.3 ML SYR SC SCH (08:13)
[2017-07-24] MEDS: MAGNESIUM SULFATE 1GM / D5W 1 GM in PREMIXED IN D5W 100 ML IV SCH ×4 (08:14→12:44)
--- NOTE | 2017-07-24 08:55 | Cardiology Follow-Up ---
Subjective General Date of Service: Jul 24, 2017. Chief Complaint: Cough Pt evaluation today including: conversation w/ patient, physical exam, chart review, lab review, review of studies, review of inpatient medication list History of Present Illness Patient seen and examined. Chart, medications, and telemetry reviewed. Patient states "I feel a lot better." Ongoing cough, chest congestion, wheezing, sweats, and peripheral edema No chest pain, palpitations, or PND. I/O's are not accurately recorded secondary to urinary incontinence. Recorded weight is down 2.6 kg (5.7 pounds) since admission. Telemetry: Sinus in the 70's and 80's. Artifact. No atrial fibrillation or flutter. No significant bradyarrhythmias or pauses. Allergies Coded Allergies: No Known Allergies (Unverified , 07/22/17) Social History Hx Tobacco Use In Past Year?: No Hx Alcohol Use - Type And Amou: Yes (OCCASIONAL WINE) Hx Substance Use - Type And Am: No Problem List Medical Problems: (1) Abnormal laboratory test result Status: Acute (2) CHF exacerbation Status: Acute (3) Dehydration Status: Acute (4) Dehydration Status: Acute (5) Hyperglycemia Status: Acute (6) Hypomagnesemia Status: Acute (7) Pedal edema Status: Acute (8) Pleural effusion, right Status: Acute (9) Rhabdomyolysis Status: Acute (10) Sepsis Status: Acute (11) Shortness of breath Status: Acute (12) UTI (urinary tract infection) Status: Acute (13) UTI (urinary tract infection) Status: Acute Physical Exam Vital Signs Last Vital Signs Documentation Date Time Temp Pulse Resp B/P (MAP) Pulse Ox O2 Delivery O2 Flow Rate FiO2 07/24/17 07:15 36.6 59 18 133/78 (96) 95 Room Air 07/23/17 08:00 2.0 Physical Exam Constitutional: Level of Distress: acutely ill, chronically ill Psychiatric: Mental Status: depressed Orientation: to time, to place, to person Memory: recent memory normal, remote memory normal Head: normocephalic, atraumatic Eyes: Pupils: PERRLA Neck: pertinent finding (No overt JVD (examined in the bedside chair)) Lungs: Respiratory effort: no dyspnea Auscultation: deminished air movement, decreased breath sounds, expiratory wheezing, rhonchi Cardiovascular: Heart Auscultation: RRR, normal S1, normal S2, no murmurs, no rubs Peripheral Pulses: Radial Pulse: normal on the left, normal on the right Dorsalis Pedis Pulse: absent on the left, absent on the right Abdomen: Bowel Sounds: normal Inspection & Palpation: soft Extremities: no cyanosis, no clubbing, edema (1-2+ edema. lymphedematous changes. Mild to moderate erythema) Neurologic: Cranial Nerves: grossly intact Assessment and Plan Assessment and Plan Complex 81 year old female admitted with an acute respiratory infection and acute decompensated diastolic congestive heart failure. History and examination today notable for considerable improvement though with ongoing evidence of acute mixed respiratory distress. Will continue cautious diuresis, continuing IV furosemide as prescribed through today then reassessing need for ongoing use in the AM. Furosemide will be held until seen in the morning. Continue carvedilol, ASA, and atorvastatin. Agree with yesterday's escalation of antibiotic therapy. Patient was seen and examined, assessment as above. Still with ronchorous cough L>R Shamir Warner MD Laboratory Results Last 24 Hours Test 07/23/17 11:13 07/23/17 16:19 07/23/17 20:17 07/24/17 06:08 Bedside Glucose 239 mg/dl 164 mg/dl 277 mg/dl Sodium Level 138 mmol/L Potassium Level 3.9 mmol/L Chloride Level 101 mmol/L Carbon Dioxide Level 30 mmol/L Anion Gap 7.0 mmol/L Blood Urea Nitrogen 14 mg/dl Creatinine 1.02 mg/dl Est Creatinine Clear Calc Drug Dose 43.5 ml/min Estimated GFR () 60.6 Estimated GFR (Non- 52.3 BUN/Creatinine Ratio 13.9 Random Glucose 120 mg/dl Calcium Level 7.4 mg/dl Magnesium Level 1.5 mg/dl Test 07/24/17 06:51 Bedside Glucose 114 mg/dl
[2017-07-24] MEDS ORDERED: POTASSIUM CHLORIDE 10 MEQ TABCR PO ONE (09:00)
[2017-07-24] MEDS: TRAMADOL HCL 50 MG TAB PO PRN (15:59)
--- NOTE | 2017-07-24 18:28 | Progress Note ---
Medicine Progress Note Date & Time of Visit: Jul 24, 2017 at 15:54. Subjective 81 yo F presents with cough and worsening dyspnea after recent discharge for CHF exacerbation. CXR revealed possible overlying infiltrate and with chills reported yesterday, abx ramped up to include Rocephin/Azithro. Pt still coughing but feels and looks clinically improved. Reports some mucous today that got stuck in her throat. Feels weak but denies pain. Breathing is at baseline. Objective Last 8 Hrs Date Time Temp Pulse Resp B/P (MAP) Pulse Ox O2 Delivery O2 Flow Rate FiO2 07/24/17 12:00 Room Air 07/24/17 11:21 36.5 59 18 102/66 (78) 98 Room Air 07/24/17 08:00 Room Air Physical Exam: GEN: WNWD, in no acute distress, alert and appropriate HEENT: NC/AT, normal sclerae, MMM CARDIO: reg rate, S1/2 heard without m/g/r LUNGS: some mild rhonchi only at R base today. ABD: soft, non-tender, non-distended, no rebound or guarding,+BS EXTREMITY: RP and DP palpable 2+ bilat, no LE edema, extremities are warm and well-perfused, erythema from venous stasis is chronically present. NEURO: CN 2-12 grossly intact, no gross focal deficits. MUSC: moves all extremities equally, no gross focal deficits SKIN: warm and dry Laboratory Results: 07/23/17 06:14 07/24/17 06:08 Test 07/22/17 13:35 07/22/17 14:25 07/22/17 14:41 07/22/17 22:00 Immature Granulocyte % (Auto) 0.7 % White Blood Count 4.57 K/uL (4.8-10.8) Red Blood Count 3.22 M/uL (4.2-5.4) Hemoglobin 10.1 g/dL (12.0-16.0) Hematocrit 30.4 % (37-47) Mean Corpuscular Volume 94.4 fL (80-100) Mean Corpuscular Hemoglobin 31.4 pg (25-34) Mean Corpuscular Hemoglobin Concent 33.2 g/dl (32-36) Platelet Count 195 K/uL (130-400) Mean Platelet Volume 9.4 fL (7.4-10.4) Neutrophils (%) (Auto) 76.8 % Lymphocytes (%) (Auto) 16.0 % Monocytes (%) (Auto) 6.1 % Eosinophils (%) (Auto) 0.0 % Basophils (%) (Auto) 0.4 % Neutrophils # (Auto) 3.51 K/uL (1.4-6.5) Lymphocytes # (Auto) 0.73 K/uL (1.2-3.4) Monocytes # (Auto) 0.28 K/uL (0.11-0.59) Eosinophils # (Auto) 0.00 K/uL (0-0.5) Basophils # (Auto) 0.02 K/uL (0-0.2) Immature Granulocyte # (Auto) 0.03 K/uL (0.00-0.02) Total Bilirubin 0.3 mg/dl (0.2-1) Aspartate Amino Transf (AST/SGOT) 41 U/L (15-37) Alanine Aminotransferase (ALT/SGPT) 31 U/L (12-78) Alkaline Phosphatase 47 U/L (45-117) Pro-B-Type Natriuretic Peptide 7756 pg/ml (0-1800) Total Protein 5.4 gm/dl (6.4-8.2) Albumin 1.8 gm/dl (3.4-5.0) Globulin 3.6 gm/dl (2.5-4.0) Albumin/Globulin Ratio 0.5 (0.9-2) Beta-Hydroxybutyric Acid 1.44 mg/dL (0.2-2.81) Influenza Type A (RT-PCR) Neg for Influ A (NEG) Influenza Type B (RT-PCR) Neg for Influ B (NEG) Bedside Lactic Acid Venous 3.31 mmol/L (0.90-1.70) Prothrombin Time 12.5 SECONDS (9.0-12.0) Prothromb Time International Ratio 1.2 (0.9-1.1) Activated Partial Thromboplast Time 26.6 SECONDS (21.0-31.0) Partial Thromboplastin Ratio 1.0 Procalcitonin < 0.05 ng/ml (0-0.5) Test 07/22/17 23:01 07/23/17 06:14 07/24/17 06:08 07/24/17 16:29 Lactic Acid Level 1.6 mmol/L (0.4-2.0) Red Blood Count 3.19 M/uL (4.2-5.4) Mean Corpuscular Volume 92.5 fL (80-100) Mean Corpuscular Hemoglobin 30.7 pg (25-34) Mean Corpuscular Hemoglobin Concent 33.2 g/dl (32-36) RDW Standard Deviation 51.0 fL (36.4-46.3) RDW Coefficient of Variation 15.3 % (11.5-14.5) Mean Platelet Volume 9.2 fL (7.4-10.4) Troponin I 0.025 ng/ml (0-0.045) Anion Gap 7.0 mmol/L (3-11) Est Creatinine Clear Calc Drug Dose 43.5 ml/min Estimated GFR () 60.6 Estimated GFR (Non- 52.3 BUN/Creatinine Ratio 13.9 (10-20) Calcium Level 7.4 mg/dl (8.5-10.1) Magnesium Level 1.5 mg/dl (1.8-2.4) Bedside Glucose 214 mg/dl (70-90) Date/Time Source Procedure Growth Status 07/22/17 14:34 Blood Blood Culture - Preliminary NO GROWTH TO DATE. Resulted 07/22/17 19:30 Nasal MRSA DNA Surveillance Screen - Final Specimen Negative for MRSA by DNA Probe Complete Last 24 Hours Test 07/23/17 16:19 07/23/17 20:17 07/24/17 06:08 07/24/17 06:51 Bedside Glucose 164 mg/dl 277 mg/dl 114 mg/dl Sodium Level 138 mmol/L Potassium Level 3.9 mmol/L Chloride Level 101 mmol/L Carbon Dioxide Level 30 mmol/L Anion Gap 7.0 mmol/L Blood Urea Nitrogen 14 mg/dl Creatinine 1.02 mg/dl Est Creatinine Clear Calc Drug Dose 43.5 ml/min Estimated GFR () 60.6 Estimated GFR (Non- 52.3 BUN/Creatinine Ratio 13.9 Random Glucose 120 mg/dl Calcium Level 7.4 mg/dl Magnesium Level 1.5 mg/dl Test 07/24/17 11:11 Bedside Glucose 235 mg/dl Assessment & Plan 81 yo F presents with cough and worsening dyspnea after recent discharge for CHF exacerbation. CXR revealed possible overlying infiltrate and with chills reported yesterday, abx ramped up to include Rocephin/Azithro. Pt still coughing but feels and looks clinically improved. Reports some mucous today that got stuck in her throat. Feels weak but denies pain. Breathing is at baseline. 1. SOB 2/2 HCAP vs acute diastolic CHF exacerbation-In the background she reports not being able to taste and, therefore, cannot tell if she is eating a high salt diet. She has also had chronic nausea with a resultant 30lb weight loss on account of not eating and apathy toward food. HCAP is possible with CXR revealing poss overlying infiltrative disease on CXR. She is better on Rocephin/Azithro so will cont this. Chills notably resolved today. For CHF exacerbation, cont Lasix BID IV per [place]-pt appears euvolemic on exam. 2. HTN-at goal. Hydralazine was recently stopped 2/2 orthostatic hypotension. Cont Coreg. 3. DMII-Glargine/ISS with carb coverage. slightly elevated. Will increase glargine coverage. 4. Hypothyroidism-synthroid per home regimen 5. Anemia-chronic, stable. no evidence of bleeding. Likely related to frequent phlebotomy while inpatient during last two admissions which were back to back. 6. Hypomagnesemia-replaced IV and will repeat in am. Started on a Mg supplement. 7. CKD Stage III VTE PROPHYLAXIS: Lovenox Full Code Dispo-cont telemetry monitoring. She is concerned about missing her MOW introduction. CM is aware of this and will facilitate MOW closer to discharge. Nephew, Mateo, was at bedside and plan reviewed with him, also with all questions answered. DO Maricarmen Nair Hospitalist Consultants: Miroslava Current Inpatient Medications: Current Inpatient Medications Medications (Trade) Dose Ordered Sig/Ethel Route Start Time Stop Time Status Last Admin Dose Admin Acetaminophen (Tylenol Tab) 650 mg Q4H PRN PO 07/22/17 18:00 08/21/17 17:59 Ondansetron HCl (Zofran Inj) 4 mg Q6H PRN IV 07/22/17 18:00 08/21/17 17:59 Aspirin (Ecotrin Tab) 81 mg QAM PO 07/23/17 09:00 08/22/17 08:59 07/24/17 08:11 81 MG Carvedilol (Coreg Tab) 25 mg BID PO 07/22/17 21:00 08/21/17 20:59 07/24/17 08:11 25 MG Insulin Glargine (Lantus Solostar Pen) 5 units QPM SC 07/22/17 21:00 08/21/17 20:59 07/23/17 21:47 5 UNITS Levothyroxine Sodium (Synthroid Tab) 200 mcg DAILYBB PO 07/23/17 09:00 08/22/17 08:59 07/24/17 06:23 200 MCG Loratadine (Claritin Tab) 10 mg QAM PO 07/23/17 09:00 08/22/17 08:59 07/24/17 08:10 10 MG Magnesium Oxide (Mag-Ox Tab) 400 mg BID PO 07/22/17 21:00 08/21/17 20:59 07/24/17 08:12 400 MG Miconazole Nitrate (Desenex Powder) 1 appln UD PRN EXT 07/22/17 18:45 08/21/17 18:44 Pantoprazole Sodium (Protonix Tab) 40 mg QAM PO 07/23/17 09:00 08/22/17 08:59 07/24/17 08:12 40 MG Sertraline HCl (Zoloft Tab) 50 mg QAM PO 07/23/17 09:00 08/22/17 08:59 07/24/17 08:12 50 MG Tramadol HCl (Ultram Tab) 50 mg Q8H PRN PO 07/22/17 18:45 08/21/17 18:44 07/22/17 21:17 50 MG Insulin Aspart (novoLOG ASPART) SLIDING SCALE G... ACHS SC 07/22/17 21:00 08/21/17 20:59 07/24/17 12:46 4 UNITS Glucose (Glucose 40% Gel) 15-30 GRAMS 15 GRAMS... UD PRN PO 07/22/17 19:45 08/21/17 19:44 Glucose (Glucose Chew Tab) 4-8 Tablets 4 Tabl... UD PRN PO 07/22/17 19:45 08/21/17 19:44 Dextrose (Dextrose 50% 50ML Syringe) 25-50ML OF 50% DW IV FOR... UD PRN IV 07/22/17 19:45 08/21/17 19:44 Glucagon (Glucagon Inj) 1 mg UD PRN SQ 07/22/17 19:45 08/21/17 19:44 Furosemide 40 mg/ Syringe 4 ml @ 4 mls/min BID@0900,1500 IV 07/23/17 09:00 08/22/17 08:59 Future Hold 07/24/17 08:10 4 MLS/MIN Atorvastatin Calcium (Lipitor Tab) 10 mg QAM PO 07/24/17 09:00 08/23/17 08:59 07/24/17 08:11 10 MG Ceftriaxone Sodium 1 gm/ Dextrose 50 ml @ 100 mls/hr Q24H IV 07/23/17 19:00 07/30/17 18:59 07/23/17 19:18 100 MLS/HR Azithromycin 500 mg/Dextrose 255 ml @ 125 mls/hr DAILY@1999 IV 07/23/17 20:00 07/30/17 19:59 07/23/17 20:03 125 MLS/HR Enoxaparin Sodium (Lovenox Inj) 40 mg DAILY SC 07/25/17 09:00 08/24/17 08:59
[2017-07-24] MEDS ORDERED: GUAIFENESIN/CODEINE 200MG/20MG 10ML UDC PO PRN (18:30)
[2017-07-24] MEDS ORDERED: FLUTICASONE PROPIONATE NA SPR 16 GM BTL ONE (18:45)
[2017-07-24] MEDS: CEFTRIAXONE SOD INJ 1 GM in DEXTROSE 5% ADD-VANTAGE 50ML 50 ML IV SCH (19:11)
[2017-07-24] MEDS ORDERED: INSULIN GLARGINE SOLOSTAR 100 UNITS/ML 3 ML PEN SC SCH (21:00)
[2017-07-24] MEDS: AZITHROMYCIN 250 MG TAB PO SCH (21:06)
[2017-07-25] VITALS (9 sets, daily range): BP systolic 93–166; BP diastolic 60–80; PULSE 55–69; TEMP 36.4–36.9; O2SAT 91–100; BMI 32.0
[2017-07-25] MEDS ORDERED: ALBUT/IPRATROP 3MG/0.5MG NEB 3 ML VIAL INH SCH
[2017-07-25] MEDS: LEVOTHYROXINE 200 MCG TAB PO SCH (05:55)
[2017-07-25] MEDS: ALBUT/IPRATROP 3MG/0.5MG NEB 3 ML VIAL INH SCH ×3 (07:08→19:12)
[2017-07-25 07:27] LABS: CREATININE 1.18 mg/dl (0.60-1.20); PHOSPHORUS 4.1 mg/dl (2.5-4.9); POTASSIUM 4.3 mmol/L (3.5-5.1)
[2017-07-25] MEDS: ATORVASTATIN 10 MG TAB PO SCH (07:43)
[2017-07-25] MEDS: PANTOprazole SOD 40 MG TAB PO SCH (07:43)
[2017-07-25] MEDS: SERTRALINE HCL 50 MG TAB PO SCH (07:43)
[2017-07-25] MEDS: LORATADINE 10 MG TAB PO SCH (07:43)
[2017-07-25] MEDS: CARVEDILOL 25 MG TAB PO SCH ×2 (07:44→20:28)
[2017-07-25] MEDS: ASPIRIN 81 MG ECTAB PO SCH (07:44)
[2017-07-25] MEDS: MAGNESIUM OXIDE 400 MG TAB PO SCH ×2 (07:44→20:28)
[2017-07-25] MEDS: FLUTICASONE PROPIONATE NA SPR 16 GM BTL SCH (07:45)
[2017-07-25] MEDS: ENOXAPARIN 40 MG/0.4 ML SYR SC SCH (07:45)
[2017-07-25] MEDS: INSULIN ASPART 100 UNITS/ML 3 ML PEN SC SCH ×5 (07:53→20:30)
--- NOTE | 2017-07-25 09:41 | Cardiology Follow-Up ---
Subjective General Date of Service: Jul 25, 2017. Chief Complaint: Cough Pt evaluation today including: conversation w/ patient, physical exam, chart review, lab review, review of studies, review of inpatient medication list History of Present Illness Patient seen and examined. Chart, medications, and telemetry reviewed. Feels some better. Improved cough. Chest congestion seems to be loosening up. No wheezing. No chills. No sweats. Peripheral edema has improved. Denies chest pain, palpitations, or PND. I/O's are not accurately recorded secondary to urinary incontinence. Telemetry: Sinus in the 70's. Rare couplet. Artifact. No atrial fibrillation or flutter. No significant bradyarrhythmias or pauses. Allergies Coded Allergies: No Known Allergies (Unverified , 07/22/17) Social History Hx Tobacco Use In Past Year?: No Hx Alcohol Use - Type And Amou: Yes (OCCASIONAL WINE) Hx Substance Use - Type And Am: No Problem List Medical Problems: (1) Abnormal laboratory test result Status: Acute (2) CHF exacerbation Status: Acute (3) Dehydration Status: Acute (4) Dehydration Status: Acute (5) Hyperglycemia Status: Acute (6) Hypomagnesemia Status: Acute (7) Pedal edema Status: Acute (8) Pleural effusion, right Status: Acute (9) Rhabdomyolysis Status: Acute (10) Sepsis Status: Acute (11) Shortness of breath Status: Acute (12) UTI (urinary tract infection) Status: Acute (13) UTI (urinary tract infection) Status: Acute Physical Exam Vital Signs Last Vital Signs Documentation Date Time Temp Pulse Resp B/P (MAP) Pulse Ox O2 Delivery O2 Flow Rate FiO2 07/25/17 08:04 55 16 166/65 (98) 100 07/25/17 07:08 Room Air 07/25/17 03:37 36.9 07/23/17 08:00 2.0 Physical Exam Constitutional: Level of Distress: NAD, chronically ill Psychiatric: Mental Status: depressed Orientation: to time, to place, to person Memory: recent memory normal, remote memory normal Head: normocephalic, atraumatic Eyes: Pupils: PERRLA Neck: pertinent finding Lungs: Respiratory effort: no dyspnea Auscultation: deminished air movement, decreased breath sounds, rhonchi Cardiovascular: Heart Auscultation: RRR, normal S1, normal S2, no murmurs, no rubs Peripheral Pulses: Radial Pulse: normal on the left, normal on the right Dorsalis Pedis Pulse: absent on the left, absent on the right Abdomen: Bowel Sounds: normal Inspection & Palpation: soft Extremities: no cyanosis, no clubbing, edema, pertinent finding (minimally improved erythema) Neurologic: Cranial Nerves: grossly intact Assessment and Plan Assessment and Plan Complex 81 year old female admitted with an acute respiratory infection and acute decompensated diastolic congestive heart failure. Patient continues to make slow steady progress in the right direction. Antibiotic therapy appears to have had the most influence in treating her presenting symptoms as well as possible bilateral lower extremity cellulitis. Will discontinue IV furosemide and transition to oral torsemide today. Compliance with oral diuretics will likely continue to be an issue given the distressful chronic urinary incontinence. Continue carvedilol, ASA, and atorvastatin. Increase activity as tolerated. Patient seen and examined, assessment as above. Still with cough but slowly improving Shamir Warner MD Laboratory Results Last 24 Hours Test 07/24/17 11:11 07/24/17 16:29 07/24/17 20:07 07/25/17 06:15 Bedside Glucose 235 mg/dl 214 mg/dl 216 mg/dl Sodium Level 138 mmol/L Potassium Level 4.3 mmol/L Chloride Level 101 mmol/L Carbon Dioxide Level 33 mmol/L Anion Gap 4.0 mmol/L Blood Urea Nitrogen 15 mg/dl Creatinine 1.18 mg/dl Est Creatinine Clear Calc Drug Dose 37.7 ml/min Estimated GFR () 50.8 Estimated GFR (Non- 43.8 BUN/Creatinine Ratio 12.4 Random Glucose 31 mg/dl Calcium Level 8.0 mg/dl Phosphorus Level 4.1 mg/dl Magnesium Level 2.2 mg/dl Test 07/25/17 06:18 07/25/17 06:19 07/25/17 06:39 Bedside Glucose 33 mg/dl 36 mg/dl 177 mg/dl
[2017-07-25] MEDS: TORSEMIDE 20 MG TAB PO SCH ×2 (14:15→17:39)
[2017-07-25] MEDS: CEFTRIAXONE SOD INJ 1 GM in DEXTROSE 5% ADD-VANTAGE 50ML 50 ML IV SCH (17:38)
[2017-07-25] MEDS: AZITHROMYCIN 250 MG TAB PO SCH (20:28)
--- NOTE | 2017-07-25 21:09 | Progress Note ---
Medicine Progress Note Date & Time of Visit: Jul 25, 2017 at 12:59. Subjective 81 yo F presents with cough and worsening dyspnea after recent discharge for CHF exacerbation. CXR revealed possible overlying infiltrate and with chills reported, abx ramped up to include Rocephin/Azithro. Resolution of chills and improvement in coughing and breathing. Pt still coughing but feels and looks clinically improved. Feels weak but denies pain. Breathing is at baseline. Objective Last 8 Hrs Date Time Temp Pulse Resp B/P (MAP) Pulse Ox O2 Delivery O2 Flow Rate FiO2 07/25/17 11:53 36.5 64 19 93/60 (71) 97 Room Air 07/25/17 08:04 55 16 166/65 (98) 100 07/25/17 08:00 Room Air 07/25/17 07:08 58 16 95 Room Air Physical Exam: GEN: WNWD, in no acute distress, alert and appropriate HEENT: NC/AT, normal sclerae, MMM CARDIO: reg rate, S1/2 heard without m/g/r LUNGS: rales throughout with improvement in air movement overall, no wheezing. ABD: soft, non-tender, non-distended, no rebound or guarding,+BS EXTREMITY: RP and DP palpable 2+ bilat, no LE edema, extremities are warm and well-perfused, erythema from venous stasis is chronically present. NEURO: CN 2-12 grossly intact, no gross focal deficits. MUSC: moves all extremities equally, no gross focal deficits SKIN: warm and dry Laboratory Results: 07/23/17 06:14 07/25/17 06:15 Test 07/22/17 13:35 07/22/17 14:25 07/22/17 14:41 07/22/17 22:00 Immature Granulocyte % (Auto) 0.7 % White Blood Count 4.57 K/uL (4.8-10.8) Red Blood Count 3.22 M/uL (4.2-5.4) Hemoglobin 10.1 g/dL (12.0-16.0) Hematocrit 30.4 % (37-47) Mean Corpuscular Volume 94.4 fL (80-100) Mean Corpuscular Hemoglobin 31.4 pg (25-34) Mean Corpuscular Hemoglobin Concent 33.2 g/dl (32-36) Platelet Count 195 K/uL (130-400) Mean Platelet Volume 9.4 fL (7.4-10.4) Neutrophils (%) (Auto) 76.8 % Lymphocytes (%) (Auto) 16.0 % Monocytes (%) (Auto) 6.1 % Eosinophils (%) (Auto) 0.0 % Basophils (%) (Auto) 0.4 % Neutrophils # (Auto) 3.51 K/uL (1.4-6.5) Lymphocytes # (Auto) 0.73 K/uL (1.2-3.4) Monocytes # (Auto) 0.28 K/uL (0.11-0.59) Eosinophils # (Auto) 0.00 K/uL (0-0.5) Basophils # (Auto) 0.02 K/uL (0-0.2) Immature Granulocyte # (Auto) 0.03 K/uL (0.00-0.02) Total Bilirubin 0.3 mg/dl (0.2-1) Aspartate Amino Transf (AST/SGOT) 41 U/L (15-37) Alanine Aminotransferase (ALT/SGPT) 31 U/L (12-78) Alkaline Phosphatase 47 U/L (45-117) Pro-B-Type Natriuretic Peptide 7756 pg/ml (0-1800) Total Protein 5.4 gm/dl (6.4-8.2) Albumin 1.8 gm/dl (3.4-5.0) Globulin 3.6 gm/dl (2.5-4.0) Albumin/Globulin Ratio 0.5 (0.9-2) Beta-Hydroxybutyric Acid 1.44 mg/dL (0.2-2.81) Influenza Type A (RT-PCR) Neg for Influ A (NEG) Influenza Type B (RT-PCR) Neg for Influ B (NEG) Bedside Lactic Acid Venous 3.31 mmol/L (0.90-1.70) Prothrombin Time 12.5 SECONDS (9.0-12.0) Prothromb Time International Ratio 1.2 (0.9-1.1) Activated Partial Thromboplast Time 26.6 SECONDS (21.0-31.0) Partial Thromboplastin Ratio 1.0 Procalcitonin < 0.05 ng/ml (0-0.5) Test 07/22/17 23:01 07/23/17 06:14 2/22/18 06:15 07/25/17 20:28 Lactic Acid Level 1.6 mmol/L (0.4-2.0) Red Blood Count 3.19 M/uL (4.2-5.4) Mean Corpuscular Volume 92.5 fL (80-100) Mean Corpuscular Hemoglobin 30.7 pg (25-34) Mean Corpuscular Hemoglobin Concent 33.2 g/dl (32-36) RDW Standard Deviation 51.0 fL (36.4-46.3) RDW Coefficient of Variation 15.3 % (11.5-14.5) Mean Platelet Volume 9.2 fL (7.4-10.4) Troponin I 0.025 ng/ml (0-0.045) Anion Gap 4.0 mmol/L (3-11) Est Creatinine Clear Calc Drug Dose 37.7 ml/min Estimated GFR () 50.8 Estimated GFR (Non- 43.8 BUN/Creatinine Ratio 12.4 (10-20) Calcium Level 8.0 mg/dl (8.5-10.1) Phosphorus Level 4.1 mg/dl (2.5-4.9) Magnesium Level 2.2 mg/dl (1.8-2.4) Bedside Glucose 148 mg/dl (70-90) Date/Time Source Procedure Growth Status 07/22/17 14:34 Blood Blood Culture - Preliminary NO GROWTH TO DATE. Resulted 07/22/17 19:30 Nasal MRSA DNA Surveillance Screen - Final Specimen Negative for MRSA by DNA Probe Complete Last 24 Hours Test 07/24/17 16:29 07/24/17 20:07 07/25/17 06:15 07/25/17 06:19 Bedside Glucose 214 mg/dl 216 mg/dl 36 mg/dl Sodium Level 138 mmol/L Potassium Level 4.3 mmol/L Chloride Level 101 mmol/L Carbon Dioxide Level 33 mmol/L Anion Gap 4.0 mmol/L Blood Urea Nitrogen 15 mg/dl Creatinine 1.18 mg/dl Est Creatinine Clear Calc Drug Dose 37.7 ml/min Estimated GFR () 50.8 Estimated GFR (Non- 43.8 BUN/Creatinine Ratio 12.4 Random Glucose 31 mg/dl Calcium Level 8.0 mg/dl Phosphorus Level 4.1 mg/dl Magnesium Level 2.2 mg/dl Test 07/25/17 06:39 07/25/17 11:16 Bedside Glucose 177 mg/dl 77 mg/dl Assessment & Plan 81 yo F presents with cough and worsening dyspnea after recent discharge for CHF exacerbation. CXR revealed possible overlying infiltrate and with chills reported, abx ramped up to include Rocephin/Azithro. Resolution of chills and improvement in coughing and breathing. Pt still coughing but feels and looks clinically improved. Feels weak but denies pain. Breathing is at baseline. 1. SOB 2/2 HCAP vs acute diastolic CHF exacerbation-resolved. Cont torsemide BID per cards. Cont daily weights. Cont current abx therapy. Sodium restriction added, fluid restriction removed. 2. HTN-at goal. Hydralazine was recently stopped 2/2 orthostatic hypotension. Cont Coreg. 3. DMII-Glargine/ISS with carb coverage. glargine increased to 10 Units overnight with pt dropping into the 30s. Glargine was stopped. Cont carb coverage only. 4. Hypothyroidism-synthroid per home regimen 5. Anemia-chronic, stable. no evidence of bleeding. Likely related to frequent phlebotomy while inpatient during last two admissions which were back to back. 6. Hypomagnesemia-resolved. Cont Mg supplementation for now. 7. CKD Stage III-stable VTE PROPHYLAXIS: Lovenox Full Code Dispo-cont telemetry monitoring. She is concerned about missing her MOW introduction. CM is aware of this and will facilitate MOW closer to discharge. Nephew Mateo, was at bedside and plan reviewed with him, also with all questions answered. [facility] Consultants: Miroslava Current Inpatient Medications: Current Inpatient Medications Medications (Trade) Dose Ordered Sig/Ethel Route Start Time Stop Time Status Last Admin Dose Admin Acetaminophen (Tylenol Tab) 650 mg Q4H PRN PO 07/22/17 18:00 08/21/17 17:59 Ondansetron HCl (Zofran Inj) 4 mg Q6H PRN IV 07/22/17 18:00 08/21/17 17:59 Aspirin (Ecotrin Tab) 81 mg QAM PO 07/23/17 09:00 08/22/17 08:59 07/25/17 07:44 81 MG Carvedilol (Coreg Tab) 25 mg BID PO 07/22/17 21:00 08/21/17 20:59 07/25/17 07:44 25 MG Levothyroxine Sodium (Synthroid Tab) 200 mcg DAILYBB PO 07/23/17 09:00 08/22/17 08:59 07/25/17 05:55 200 MCG Loratadine (Claritin Tab) 10 mg QAM PO 07/23/17 09:00 08/22/17 08:59 07/25/17 07:43 10 MG Magnesium Oxide (Mag-Ox Tab) 400 mg BID PO 07/22/17 21:00 08/21/17 20:59 07/25/17 07:44 400 MG Miconazole Nitrate (Desenex Powder) 1 appln UD PRN EXT 07/22/17 18:45 08/21/17 18:44 Pantoprazole Sodium (Protonix Tab) 40 mg QAM PO 07/23/17 09:00 08/22/17 08:59 07/25/17 07:43 40 MG Sertraline HCl (Zoloft Tab) 50 mg QAM PO 07/23/17 09:00 08/22/17 08:59 07/25/17 07:43 50 MG Tramadol HCl (Ultram Tab) 50 mg Q8H PRN PO 07/22/17 18:45 08/21/17 18:44 07/24/17 15:59 50 MG Insulin Aspart (novoLOG ASPART) SLIDING SCALE G... ACHS SC 07/22/17 21:00 08/21/17 20:59 07/25/17 07:53 6 UNITS Glucose (Glucose 40% Gel) 15-30 GRAMS 15 GRAMS... UD PRN PO 07/22/17 19:45 08/21/17 19:44 Glucose (Glucose Chew Tab) 4-8 Tablets 4 Tabl... UD PRN PO 07/22/17 19:45 08/21/17 19:44 Dextrose (Dextrose 50% 50ML Syringe) 25-50ML OF 50% DW IV FOR... UD PRN IV 07/22/17 19:45 08/21/17 19:44 07/25/17 06:23 50 ML Glucagon (Glucagon Inj) 1 mg UD PRN SQ 07/22/17 19:45 08/21/17 19:44 Atorvastatin Calcium (Lipitor Tab) 10 mg QAM PO 07/24/17 09:00 08/23/17 08:59 07/25/17 07:43 10 MG Ceftriaxone Sodium 1 gm/ Dextrose 50 ml @ 100 mls/hr Q24H IV 07/23/17 19:00 07/30/17 18:59 07/24/17 19:11 100 MLS/HR Enoxaparin Sodium (Lovenox Inj) 40 mg DAILY SC 07/25/17 09:00 08/24/17 08:59 07/25/17 07:45 40 MG Azithromycin (Zithromax Tab) 500 mg Q24H PO 07/24/17 20:00 07/31/17 19:59 07/24/17 21:06 500 MG Codeine Phosphate/ Guaifenesin (Robitussin-AC Sugar Free Syrup) 10 ml Q6H PRN PO 07/24/17 18:30 08/23/17 18:29 Fluticasone Propionate (Flonase Nasal [place]) 2 sprays DAILY NA 07/25/17 09:00 08/24/17 08:59 07/25/17 07:45 2 SPRAYS Insulin Glargine (Lantus Solostar Pen) 10 units BID SC 07/24/17 21:00 08/21/17 20:59 Future Hold 07/24/17 20:13 10 UNITS Albuterol/ Ipratropium (Duoneb) 3 ml Q6RWA INH 07/25/17 09:00 08/24/17 00:00 07/25/17 07:08 3 ML Torsemide (Demadex Tab) 20 mg BID17 PO 07/25/17 11:00 08/24/17 10:59
[2017-07-26] VITALS (7 sets, daily range): BP systolic 95–169; BP diastolic 59–76; PULSE 62–73; TEMP 36.3–36.6; O2SAT 95–100
[2017-07-26] MEDS: LEVOTHYROXINE 200 MCG TAB PO SCH (06:00)
[2017-07-26] MEDS: ALBUT/IPRATROP 3MG/0.5MG NEB 3 ML VIAL INH SCH ×3 (07:40→19:06)
[2017-07-26] MEDS: ATORVASTATIN 10 MG TAB PO SCH (07:58)
[2017-07-26] MEDS: FLUTICASONE PROPIONATE NA SPR 16 GM BTL SCH (07:58)
[2017-07-26] MEDS: SERTRALINE HCL 50 MG TAB PO SCH (07:59)
[2017-07-26] MEDS: LORATADINE 10 MG TAB PO SCH (07:59)
[2017-07-26] MEDS: PANTOprazole SOD 40 MG TAB PO SCH (07:59)
[2017-07-26] MEDS: TORSEMIDE 20 MG TAB PO SCH (08:00)
[2017-07-26] MEDS: ENOXAPARIN 40 MG/0.4 ML SYR SC SCH (08:00)
[2017-07-26] MEDS: MAGNESIUM OXIDE 400 MG TAB PO SCH ×2 (08:01→21:35)
[2017-07-26] MEDS: ASPIRIN 81 MG ECTAB PO SCH (08:01)
[2017-07-26] MEDS: CARVEDILOL 25 MG TAB PO SCH ×2 (08:01→21:37)
--- NOTE | 2017-07-26 08:18 | DIAGNOSTIC IMAGING REPORT ---
CHEST ONE VIEW PORTABLE HISTORY: persistent coughing, repeat CXR after treatment for CHF and PNA COMPARISON: Chest 07/22/2017. FINDINGS: Emphysema. The pulmonary edema has essentially resolved. The heart is normal in size. Cardiac valve prosthesis is noted. Small bilateral pleural effusions persist. Patchy density within the left lung base has slightly improved. IMPRESSION: 1. Interval resolution of the pulmonary edema. 2. Small bilateral pleural effusions persist. 3. Patchy density at the left lung base has improved. Electronically signed by: Bobby Melo M.D. 07/26/2017 8:17 AM Dictated Date/Time: 07/26/2017 8:15 AM
[2017-07-26] MEDS: INSULIN ASPART 100 UNITS/ML 3 ML PEN SC SCH ×4 (08:38→21:38)
--- NOTE | 2017-07-26 10:38 | Cardiology Follow-Up ---
Subjective General Date of Service: Jul 26, 2017. Chief Complaint: Weakness Pt evaluation today including: conversation w/ patient, physical exam, chart review, lab review, review of studies, review of inpatient medication list History of Present Illness Patient seen and examined. Chart, medications, and telemetry reviewed. Feels weak, worse with positional change. Last recorded BP 95/59 though labile throughout. Off telemetry. Cough and chest congestion improved. No further wheezing, chills, or sweats. Peripheral edema and lower extremity erythema improved. Denies chest pain, palpitations, or PND. Allergies Coded Allergies: No Known Allergies (Unverified , 07/22/17) Social History Hx Tobacco Use In Past Year?: No Hx Alcohol Use - Type And Amou: Yes (OCCASIONAL WINE) Hx Substance Use - Type And Am: No Problem List Medical Problems: (1) Abnormal laboratory test result Status: Acute (2) CHF exacerbation Status: Acute (3) Dehydration Status: Acute (4) Dehydration Status: Acute (5) Hyperglycemia Status: Acute (6) Hypomagnesemia Status: Acute (7) Pedal edema Status: Acute (8) Pleural effusion, right Status: Acute (9) Rhabdomyolysis Status: Acute (10) Sepsis Status: Acute (11) Shortness of breath Status: Acute (12) UTI (urinary tract infection) Status: Acute (13) UTI (urinary tract infection) Status: Acute Physical Exam Vital Signs Last Vital Signs Documentation Date Time Temp Pulse Resp B/P (MAP) Pulse Ox O2 Delivery O2 Flow Rate FiO2 07/26/17 08:00 Room Air 07/26/17 07:40 67 16 100 07/26/17 07:14 36.3 95/59 (71) 07/23/17 08:00 2.0 Physical Exam Constitutional: Level of Distress: NAD, chronically ill Psychiatric: Mental Status: depressed Orientation: to time, to place, to person Memory: recent memory normal, remote memory normal Head: normocephalic, atraumatic Eyes: Pupils: PERRLA Neck: pertinent finding Lungs: Respiratory effort: no dyspnea Auscultation: deminished air movement, decreased breath sounds, rhonchi Cardiovascular: Heart Auscultation: RRR, normal S1, normal S2, no murmurs, no rubs Peripheral Pulses: Radial Pulse: normal on the left, normal on the right Dorsalis Pedis Pulse: absent on the left, absent on the right Abdomen: Bowel Sounds: normal Inspection & Palpation: soft Extremities: no cyanosis, no clubbing, edema, pertinent finding (improved erythema) Neurologic: Cranial Nerves: grossly intact Assessment and Plan Assessment and Plan Complex 81 year old female admitted with an acute respiratory infection and acute decompensated diastolic congestive heart failure, improved. Antibiotic therapy appears to have had the most influence in treating her presenting symptoms as well as probable bilateral lower extremity cellulitis. Wide fluctuations in blood pressures observed with symptomatic hypotension observed this admission, orthostatic hypotension observed during the last admission. Hydralazine previously discontinued. Will reduce carvedilol dosing slightly, decreasing from 25 mg twice a day to 12.5 mg in the AM and 25 mg in the PM. Torsemide will be continued as prescribed for now unless the requested metabolic panel today dictates a need to reduce diuretic therapy slightly. Continue ASA and atorvastatin. Patient seen and assessed, plan as outlined above. Shamir Warner MD Laboratory Results Last 24 Hours Test 07/25/17 11:16 07/25/17 16:24 07/25/17 20:28 07/26/17 04:32 Bedside Glucose 77 mg/dl 167 mg/dl 148 mg/dl 100 mg/dl Test 07/26/17 07:55 Bedside Glucose 96 mg/dl
[2017-07-26 11:41] LABS: CALCIUM 7.8 mg/dl (8.5-10.1); CREATININE 1.62 mg/dl (0.60-1.20); POTASSIUM 4.5 mmol/L (3.5-5.1)
--- NOTE | 2017-07-26 12:53 | Progress Note ---
Medicine Progress Note Date & Time of Visit: Jul 26, 2017 at 12:46. Subjective 81 yo F presents with cough and worsening dyspnea after recent discharge for CHF exacerbation. CXR revealed possible overlying infiltrate and with chills reported, abx ramped up to include Rocephin/Azithro. Resolution of chills and improvement in coughing and breathing. Pt reports coughing has resolved and her breathing is back to baseline. Repeat CXR this am reveals resolution of pulmonary edema and improvement of L base infiltrate. However, she is very concerned after seeing the scale this morning and started saying "Oh my gosh what if I have leukemia. I have 5 blankets to make for my grandchildren, etc" I reiterated that her PCP will help to continue the workup as outpatient for her weight loss, however, she is concerned about her weakness and if she gets sick again at rehab. She basically doesn't appear ready to go anywhere mentally. We discussed the possibility of seeing a MH provider to help her work through some of this and she thought that was a good idea. She also reported 3 episodes of loose stools to me this morning without any blood, fevers , chills or abdominal pain. She is tolerating PO. Objective Last 8 Hrs Date Time Temp Pulse Resp B/P (MAP) Pulse Ox O2 Delivery O2 Flow Rate FiO2 07/26/17 08:00 Room Air 07/26/17 07:40 67 16 100 Room Air 07/26/17 07:14 36.3 67 16 95/59 (71) 99 Room Air Physical Exam: GEN: WNWD, in no acute distress, alert and appropriate HEENT: NC/AT, normal sclerae, MMM CARDIO: reg rate, S1/2 heard without m/g/r LUNGS: CTAB, no crackles, rales or wheezing. ABD: soft, non-tender, non-distended, no rebound or guarding,+BS EXTREMITY: RP and DP palpable 2+ bilat, no LE edema, extremities are warm and well-perfused, erythema from venous stasis is chronically present. NEURO: CN 2-12 grossly intact, no gross focal deficits. MUSC: moves all extremities equally, no gross focal deficits SKIN: warm and dry Laboratory Results: 07/23/17 06:14 07/26/17 10:54 Test 07/22/17 13:35 07/22/17 14:25 07/22/17 14:41 07/22/17 22:00 Immature Granulocyte % (Auto) 0.7 % White Blood Count 4.57 K/uL (4.8-10.8) Red Blood Count 3.22 M/uL (4.2-5.4) Hemoglobin 10.1 g/dL (12.0-16.0) Hematocrit 30.4 % (37-47) Mean Corpuscular Volume 94.4 fL (80-100) Mean Corpuscular Hemoglobin 31.4 pg (25-34) Mean Corpuscular Hemoglobin Concent 33.2 g/dl (32-36) Platelet Count 195 K/uL (130-400) Mean Platelet Volume 9.4 fL (7.4-10.4) Neutrophils (%) (Auto) 76.8 % Lymphocytes (%) (Auto) 16.0 % Monocytes (%) (Auto) 6.1 % Eosinophils (%) (Auto) 0.0 % Basophils (%) (Auto) 0.4 % Neutrophils # (Auto) 3.51 K/uL (1.4-6.5) Lymphocytes # (Auto) 0.73 K/uL (1.2-3.4) Monocytes # (Auto) 0.28 K/uL (0.11-0.59) Eosinophils # (Auto) 0.00 K/uL (0-0.5) Basophils # (Auto) 0.02 K/uL (0-0.2) Immature Granulocyte # (Auto) 0.03 K/uL (0.00-0.02) Total Bilirubin 0.3 mg/dl (0.2-1) Aspartate Amino Transf (AST/SGOT) 41 U/L (15-37) Alanine Aminotransferase (ALT/SGPT) 31 U/L (12-78) Alkaline Phosphatase 47 U/L (45-117) Pro-B-Type Natriuretic Peptide 7756 pg/ml (0-1800) Total Protein 5.4 gm/dl (6.4-8.2) Albumin 1.8 gm/dl (3.4-5.0) Globulin 3.6 gm/dl (2.5-4.0) Albumin/Globulin Ratio 0.5 (0.9-2) Beta-Hydroxybutyric Acid 1.44 mg/dL (0.2-2.81) Influenza Type A (RT-PCR) Neg for Influ A (NEG) Influenza Type B (RT-PCR) Neg for Influ B (NEG) Bedside Lactic Acid Venous 3.31 mmol/L (0.90-1.70) Prothrombin Time 12.5 SECONDS (9.0-12.0) Prothromb Time International Ratio 1.2 (0.9-1.1) Activated Partial Thromboplast Time 26.6 SECONDS (21.0-31.0) Partial Thromboplastin Ratio 1.0 Procalcitonin < 0.05 ng/ml (0-0.5) Test 07/22/17 23:01 07/23/17 06:14 07/25/17 06:15 07/26/17 10:54 Lactic Acid Level 1.6 mmol/L (0.4-2.0) Red Blood Count 3.19 M/uL (4.2-5.4) Mean Corpuscular Volume 92.5 fL (80-100) Mean Corpuscular Hemoglobin 30.7 pg (25-34) Mean Corpuscular Hemoglobin Concent 33.2 g/dl (32-36) RDW Standard Deviation 51.0 fL (36.4-46.3) RDW Coefficient of Variation 15.3 % (11.5-14.5) Mean Platelet Volume 9.2 fL (7.4-10.4) Troponin I 0.025 ng/ml (0-0.045) Phosphorus Level 4.1 mg/dl (2.5-4.9) Magnesium Level 2.2 mg/dl (1.8-2.4) Anion Gap 6.0 mmol/L (3-11) Est Creatinine Clear Calc Drug Dose 26.8 ml/min Estimated GFR () 34.6 Estimated GFR (Non- 29.9 BUN/Creatinine Ratio 10.0 (10-20) Calcium Level 7.8 mg/dl (8.5-10.1) Test 07/26/17 11:53 Bedside Glucose 225 mg/dl (70-90) Date/Time Source Procedure Growth Status 07/22/17 14:34 Blood Blood Culture - Preliminary NO GROWTH TO DATE. Resulted 07/22/17 19:30 Nasal MRSA DNA Surveillance Screen - Final Specimen Negative for MRSA by DNA Probe Complete Last 24 Hours Test 07/25/17 16:24 07/25/17 20:28 07/26/17 04:32 07/26/17 07:55 Bedside Glucose 167 mg/dl 148 mg/dl 100 mg/dl 96 mg/dl Test 07/26/17 10:54 07/26/17 11:53 Sodium Level 138 mmol/L Potassium Level 4.5 mmol/L Chloride Level 101 mmol/L Carbon Dioxide Level 31 mmol/L Anion Gap 6.0 mmol/L Blood Urea Nitrogen 16 mg/dl Creatinine 1.62 mg/dl Est Creatinine Clear Calc Drug Dose 26.8 ml/min Estimated GFR () 34.6 Estimated GFR (Non- 29.9 BUN/Creatinine Ratio 10.0 Random Glucose 229 mg/dl Calcium Level 7.8 mg/dl Bedside Glucose 225 mg/dl Assessment & Plan 81 yo F presents with cough and worsening dyspnea after recent discharge for CHF exacerbation. CXR revealed possible overlying infiltrate and with chills reported, abx ramped up to include Rocephin/Azithro. Resolution of chills and improvement in coughing and breathing. Pt reports coughing has resolved and her breathing is back to baseline. Repeat CXR this am reveals resolution of pulmonary edema and improvement of L base infiltrate. However, she is very concerned after seeing the scale this morning and started saying "Oh my gosh what if I have leukemia. I have 5 blankets to make for my grandchildren, etc" I reiterated that her PCP will help to continue the workup as outpatient for her weight loss, however, she is concerned about her weakness and if she gets sick again at rehab. She basically doesn't appear ready to go anywhere mentally. We discussed the possibility of seeing a MH provider to help her work through some of this and she thought that was a good idea. She also reported 3 episodes of loose stools to me this morning without any blood, fevers , chills or abdominal pain. She is tolerating PO. 1. SOB 2/2 HCAP vs acute diastolic CHF exacerbation-resolved. Cont torsemide BID per cards. Cont daily weights. Cont current abx therapy. Sodium restriction added, fluid restriction removed. This was reiterated with the nurses today. 2. BARBARA in setting of CKD Stage III-poss related to diuretic therapy. Will hold diuretics today and check urine studies. Repeat PRP in am. 3. Loose stools- in setting of abx use. Check for infection, give imodium as needed. 4. HTN-at goal. Hydralazine was recently stopped 2/2 orthostatic hypotension. Cont Coreg. 5. DMII-Glargine/ISS with carb coverage. glargine increased to 10 Units with pt dropping into the 30s. Glargine was stopped. Cont carb coverage only. Pt has remained at goal.. 6. Hypothyroidism-synthroid per home regimen 7. Anemia-chronic, stable. no evidence of bleeding. Likely related to frequent phlebotomy while inpatient during last two admissions which were back to back. 8. Hypomagnesemia-resolved. Cont Mg supplementation for now. VTE PROPHYLAXIS: Lovenox Full Code Dispo-Med/Surg-medically stable to go to rehab. CM to engage her and get an authorization for rehab. DO Maricarmen Nair Hospitalist Consultants: Miroslava Current Inpatient Medications: Current Inpatient Medications Medications (Trade) Dose Ordered Sig/Ethel Route Start Time Stop Time Status Last Admin Dose Admin Acetaminophen (Tylenol Tab) 650 mg Q4H PRN PO 07/22/17 18:00 08/21/17 17:59 Ondansetron HCl (Zofran Inj) 4 mg Q6H PRN IV 07/22/17 18:00 08/21/17 17:59 Aspirin (Ecotrin Tab) 81 mg QAM PO 07/23/17 09:00 08/22/17 08:59 07/26/17 08:01 81 MG Levothyroxine Sodium (Synthroid Tab) 200 mcg DAILYBB PO 07/23/17 09:00 08/22/17 08:59 07/26/17 06:00 200 MCG Loratadine (Claritin Tab) 10 mg QAM PO 07/23/17 09:00 08/22/17 08:59 07/26/17 07:59 10 MG Magnesium Oxide (Mag-Ox Tab) 400 mg BID PO 07/22/17 21:00 08/21/17 20:59 07/26/17 08:01 400 MG Miconazole Nitrate (Desenex Powder) 1 appln UD PRN EXT 07/22/17 18:45 08/21/17 18:44 Pantoprazole Sodium (Protonix Tab) 40 mg QAM PO 07/23/17 09:00 08/22/17 08:59 07/26/17 07:59 40 MG Sertraline HCl (Zoloft Tab) 50 mg QAM PO 07/23/17 09:00 08/22/17 08:59 07/26/17 07:59 50 MG Tramadol HCl (Ultram Tab) 50 mg Q8H PRN PO 07/22/17 18:45 08/21/17 18:44 07/24/17 15:59 50 MG Insulin Aspart (novoLOG ASPART) SLIDING SCALE G... ACHS SC 07/22/17 21:00 08/21/17 20:59 07/26/17 08:38 4 UNITS Glucose (Glucose 40% Gel) 15-30 GRAMS 15 GRAMS... UD PRN PO 07/22/17 19:45 08/21/17 19:44 Glucose (Glucose Chew Tab) 4-8 Tablets 4 Tabl... UD PRN PO 07/22/17 19:45 08/21/17 19:44 Dextrose (Dextrose 50% 50ML Syringe) 25-50ML OF 50% DW IV FOR... UD PRN IV 07/22/17 19:45 08/21/17 19:44 07/25/17 06:23 50 ML Glucagon (Glucagon Inj) 1 mg UD PRN SQ 07/22/17 19:45 08/21/17 19:44 Atorvastatin Calcium (Lipitor Tab) 10 mg QAM PO 07/24/17 09:00 08/23/17 08:59 07/26/17 07:58 10 MG Ceftriaxone Sodium 1 gm/ Dextrose 50 ml @ 100 mls/hr Q24H IV 07/23/17 19:00 07/30/17 18:59 07/25/17 17:38 100 MLS/HR Enoxaparin Sodium (Lovenox Inj) 40 mg DAILY SC 07/25/17 09:00 08/24/17 08:59 07/26/17 08:00 40 MG Azithromycin (Zithromax Tab) 500 mg Q24H PO 07/24/17 20:00 07/31/17 19:59 07/25/17 20:28 500 MG Codeine Phosphate/ Guaifenesin (Robitussin-AC Sugar Free Syrup) 10 ml Q6H PRN PO 07/24/17 18:30 08/23/17 18:29 Fluticasone Propionate (Flonase Nasal [place]) 2 sprays DAILY NA 07/25/17 09:00 08/24/17 08:59 07/26/17 07:58 2 SPRAYS Albuterol/ Ipratropium (Duoneb) 3 ml Q6RWA INH 07/25/17 09:00 08/24/17 00:00 07/26/17 07:40 3 ML Torsemide (Demadex Tab) 20 mg BID17 PO 07/25/17 11:00 08/24/17 10:59 07/26/17 08:00 20 MG Carvedilol (Coreg Tab) 12.5 mg QAM PO 07/27/17 08:00 08/21/17 20:59 Carvedilol (Coreg Tab) 25 mg QPM PO 07/26/17 21:00 08/25/17 20:59
[2017-07-26 15:05] LABS: CREATININE RANDOM URINE 52.5 mg/dl
--- NOTE | 2017-07-26 16:32 | Psychiatric Consultation ---
Consultation Date of Consultation Jul 26, 2017. Chief Complaint "[]". Past Psychiatric History Access to a Gun: Yes ( owns; encouraged to secure) Suicide Attempts: No Past Medication Trials unsure of past medication trials Past Medical/Surgical History History of Concussion/Seizure: No Allergies Allergies: Coded Allergies: No Known Allergies (Unverified , 07/22/17) Home Medications Scheduled Ascorbic Acid (Vitamin C), 1 TAB PO QAM Aspirin (Aspirin Chewable), 81 MG PO QAM Carvedilol (Coreg), 25 MG PO BID Cholecalciferol (Vitamin D3), 1 TAB PO QAM Insulin Aspart (Novolog Flexpen), 5 UNITS SC TID Insulin Glargine (Lantus), 5 SC QPM Levothyroxine Sodium (Levothyroxine Sodium), 1 TAB PO QAM Loratadine (Claritin), 10 MG PO QAM Magnesium Oxide (Mag-Ox), 400 MG PO BID Pantoprazole (Protonix), 40 MG PO QAM Sertraline HCl (Sertraline HCl), 50 MG PO QAM Simvastatin (Zocor), 10 MG PO QPM Torsemide (Demadex), 20 MG PO DAILY Scheduled PRN Ipratropium Harmony (Atrovent 0.02% Soln), 1 DOSE INH DIRECTED PRN for Shortness of Breath Miconazole Nitrate (Desenex Shake Powder), 1 APPLN EXT UD PRN for Affected Skin Folds Tramadol (Ultram), 50 MG PO Q8H PRN for Pain Family History FH: heart disease MOTHER Hypertension Examination Vital Signs Vital Signs Past 12 Hours Date Time Temp Pulse Resp B/P (MAP) Pulse Ox O2 Delivery O2 Flow Rate FiO2 07/26/17 16:00 Room Air 07/26/17 15:24 36.4 65 22 145/76 (99) 95 Room Air 07/26/17 14:37 65 16 97 Room Air 07/26/17 08:00 Room Air 07/26/17 07:40 67 16 100 Room Air 07/26/17 07:14 36.3 67 16 95/59 (71) 99 Room Air Laboratory Results Last 24 Hours Test 07/25/17 20:28 07/26/17 00:00 07/26/17 04:32 07/26/17 07:55 Bedside Glucose 148 mg/dl 100 mg/dl 96 mg/dl Urine Random Creatinine 52.5 mg/dl Urine Random Sodium 74 mEq/L Urine Random Urea Nitrogen 146 mg/dl Test 07/26/17 10:54 07/26/17 11:53 Sodium Level 138 mmol/L Potassium Level 4.5 mmol/L Chloride Level 101 mmol/L Carbon Dioxide Level 31 mmol/L Anion Gap 6.0 mmol/L Blood Urea Nitrogen 16 mg/dl Creatinine 1.62 mg/dl Est Creatinine Clear Calc Drug Dose 26.8 ml/min Estimated GFR () 34.6 Estimated GFR (Non- 29.9 BUN/Creatinine Ratio 10.0 Random Glucose 229 mg/dl Calcium Level 7.8 mg/dl Bedside Glucose 225 mg/dl
--- NOTE | 2017-07-26 17:14 | Psychiatric Consultation ---
Psychiatric Consultation Date of Service: Jul 26, 2017. ID: Patient record reviewed. Jemma Gunter is a 81-year-old female admitted to the medical floor for an exacerbation of her CHF. Pt had a previous hospital stay a few days prior due to a fall she had sustained due to suspected hypoglycemia. Psychiatric consult ordered to assess anxiety and pt concerns about weight loss. CC: "There are quite a few things that led to me coming here." HPI: Jemma Gunter is a 81-year-old female admitted to the medical floor for CHF exacerbation. Pt seen on psychiatric consult service due to anxiety and concerns about weight loss voiced this morning. Pt states she has lost about 30 pounds in 10 months time and another 11 since her last hospitalization. Pt is concerned about this weight loss; however, current BMI is 30.5. Pt states she was informed the recent weight loss was likely due to diuretics used to reduce fluid retention. Pt was not calmed by this response and continued to voice concerns that she had an undiagnosed illness yet to be found. Pt also reports a period of nausea in which she had decreased appetite and found eating difficult. She is not comforted by hearing that decreased appetite could cause weight loss. Pt states medications known to cause nausea were eliminate or decreased upon her admission to the hospital. This includes her sertraline which was decreased from 100mg to 50mg. Pt reports nausea is improved, but not resolved. Pt was evaluated today while lying in bed. She denies feeing restless, agitated , irritable, or having difficulty concentrating. She reports some anxiety about her her recent health issues and weight loss, but does not feel that it is excessive. She is unable to quantify and discuss presentation of anxiety as she says, "what would being anxious mean, what does that look like?" Pt denies panic attacks presently or in the past. She does report depressive symptoms of low mood, decreased appetite, and occasional guilt. She denies hopelessness, SI , or other concerns related to mood. Pt shares that the majority of her dissatisfaction comes from she and her "not always seeing eye-to-eye". Discussion about her depressive symptoms always return to conflict with her . Pt states she would be interested in trying an alternative medication to target mood. Pt reports two previous inpatient mental health hospitalizations in the 1969- for depression. She declines therapy referral this time, due to transportation issues. Pt states she and her are to be set up with [employer] after she is discharged, which would be beneficial. She denies SI/HI, SIB, A/V hallucinations, raffi, paranoia, OCD, and other psychosis. ROS: Psych: denies symptoms other than stated above Constitutional: denied Cardiovascular: denied GI: reports mild nausea Neurologic: denied Remainder of 10 body systems also reviewed and denied other than noted above. MSE: The patient presented as alert and cooperative. The patient was dressed in hospital gown and baseball cap. Appears to be appropriately groomed. Eye contact was fair. No psychomotor restlessness or agitation was noted. Speech was normal in rate, rhythm, and volume. Affect was mood congruent. The patients mood appeared depressed. Thought processes were clear, coherent and goal directed without evidence of loose associations or flight of ideas. Thought content/perception was reality based without delusions. The patient denied suicidal and homicidal ideation. The patient denied hallucinations and did not appear to be responding to internal stimuli. Cognition was grossly intact with orientation to person, place and time. Fund of Knowledge/ Intelligence were consistent with level of education. Insight and Judgement were fair. Imp: Pt reports that her depressive symptoms are more concerning than her occasional anxiety. Pt reports symptoms of low mood, low appetite, and occasional guilt. Due to concerns of nausea with increased dose of sertraline, as well as patient's concerns surrounding recent weight loss, discussed trial of mirtazapine. Would be ideal to manage depressive symptoms, any ruminations about health, and likely stimulate appetite leading to weight gain. Risks, benefits, side effects, and alternatives were discussed with the patient who voiced understanding and is in agreement with the plan above. Will discontinue sertraline and add mirtazapine 7.5mg to begin this evening. Pt declines therapy referral to address marriage concerns; however is willing for contact list of therapists in the area. Pt states transportation is an issues. Due to these concerns, she would prefer that her PCP continues to manage her medication. At this point in time, symptoms of depression and anxiety would not meet criteria to suggest inpatient mental health treatment. Outpatient medication management remains the least restrictive setting to manage her current concerns. Pt does not appear to pose a risk to self or others. Could consider discharge to [facility] for rehabilitation of tolerating mirtazapine for further titration and assessment during her stay there. Will continue to follow while at this facility. Plan: - D/C sertraline. - Begin mirtazapine 7.5mg qHS to target mood, anxiety, and stimulate appetite - psychiatric nurse liaison to provide with contact list for therapists in the area
[2017-07-26] MEDS: CEFTRIAXONE SOD INJ 1 GM in DEXTROSE 5% ADD-VANTAGE 50ML 50 ML IV SCH (18:26)
[2017-07-26] MEDS ORDERED: SODIUM CHLORIDE 0.9% 1000ML 1,000 ML IV SCH (18:45)
[2017-07-26] MEDS ORDERED: NURSING VERBAL MED ORDER ONE (19:15)
[2017-07-26] MEDS: AZITHROMYCIN 250 MG TAB PO SCH (21:37)
[2017-07-26] MEDS: MIRTAZAPINE TAB 15 MG TAB PO SCH (21:40)
[2017-07-27] VITALS (9 sets, daily range): BP systolic 102–145; BP diastolic 68–77; PULSE 62–77; TEMP 36.3–37; O2SAT 92–100
[2017-07-27] MEDS: LEVOTHYROXINE 200 MCG TAB PO SCH (06:13)
[2017-07-27] MEDS: ALBUT/IPRATROP 3MG/0.5MG NEB 3 ML VIAL INH SCH ×3 (07:40→20:02)
[2017-07-27] MEDS: FLUTICASONE PROPIONATE NA SPR 16 GM BTL SCH (08:50)
[2017-07-27] MEDS: LORATADINE 10 MG TAB PO SCH (08:50)
[2017-07-27] MEDS: ATORVASTATIN 10 MG TAB PO SCH (08:50)
[2017-07-27] MEDS: CARVEDILOL 12.5 MG TAB PO SCH (08:51)
[2017-07-27] MEDS: PANTOprazole SOD 40 MG TAB PO SCH (08:51)
[2017-07-27] MEDS: ASPIRIN 81 MG ECTAB PO SCH (08:51)
[2017-07-27] MEDS: MAGNESIUM OXIDE 400 MG TAB PO SCH ×2 (08:51→22:06)
[2017-07-27] MEDS: ENOXAPARIN 40 MG/0.4 ML SYR SC SCH (08:52)
[2017-07-27] MEDS: INSULIN ASPART 100 UNITS/ML 3 ML PEN SC SCH ×4 (09:20→22:12)
[2017-07-27 09:32] LABS: CALCIUM 8.3 mg/dl (8.5-10.1); CREATININE 1.53 mg/dl (0.60-1.20)
[2017-07-27] MEDS ORDERED: SODIUM CHLORIDE 0.9% 500ML 500 ML IV SCH (16:00)
[2017-07-27] MEDS: CEFTRIAXONE SOD INJ 1 GM in DEXTROSE 5% ADD-VANTAGE 50ML 50 ML IV SCH (18:23)
[2017-07-27] MEDS: CARVEDILOL 25 MG TAB PO SCH (22:07)
[2017-07-27] MEDS: AZITHROMYCIN 250 MG TAB PO SCH (22:07)
[2017-07-27] MEDS: MIRTAZAPINE TAB 15 MG TAB PO SCH (22:08)
[2017-07-27] MEDS: TRAMADOL HCL 50 MG TAB PO PRN (23:53)
[2017-07-28] VITALS (9 sets, daily range): BP systolic 115–146; BP diastolic 66–80; PULSE 74–80; TEMP 36.3–36.6; O2SAT 92–100
[2017-07-28] MEDS: LEVOTHYROXINE 200 MCG TAB PO SCH (05:30)
[2017-07-28] MEDS: ALBUT/IPRATROP 3MG/0.5MG NEB 3 ML VIAL INH SCH ×3 (07:28→19:31)
[2017-07-28] MEDS: CARVEDILOL 12.5 MG TAB PO SCH (08:10)
[2017-07-28] MEDS: LORATADINE 10 MG TAB PO SCH (08:10)
[2017-07-28] MEDS: ATORVASTATIN 10 MG TAB PO SCH (08:10)
[2017-07-28] MEDS: MAGNESIUM OXIDE 400 MG TAB PO SCH ×2 (08:10→21:15)
[2017-07-28] MEDS: ENOXAPARIN 30 MG/0.3 ML SYR SC SCH (08:10)
[2017-07-28] MEDS: ASPIRIN 81 MG ECTAB PO SCH (08:10)
[2017-07-28] MEDS: PANTOprazole SOD 40 MG TAB PO SCH (08:10)
[2017-07-28] MEDS: FLUTICASONE PROPIONATE NA SPR 16 GM BTL SCH (08:11)
[2017-07-28 08:14] LABS: CALCIUM 7.7 mg/dl (8.5-10.1); CREATININE 1.13 mg/dl (0.60-1.20); POTASSIUM 4.8 mmol/L (3.5-5.1)
[2017-07-28] MEDS: INSULIN ASPART 100 UNITS/ML 3 ML PEN SC SCH ×4 (08:49→21:00)
[2017-07-28] MEDS: INSULIN GLARGINE SOLOSTAR 100 UNITS/ML 3 ML PEN SC SCH (08:49)
[2017-07-28] MEDS: CHLORASEPTIC 1.4% SOLN 180 ML BTL MT PRN (10:20)
[2017-07-28] MEDS: FUROSEMIDE 40 MG TAB PO SCH (10:20)
--- NOTE | 2017-07-28 12:38 | Progress Note ---
Medicine Progress Note Date & Time of Visit: Jul 27, 2017 at 15:50. Subjective Doing well on the Remeron and excited about how well this medication might work for her. She feels much better today and daughter is with her at bedside. Cough is resolved and breathing is at baseline. Feel less weak today. Tolerating PO. Objective Last 8 Hrs Date Time Temp Pulse Resp B/P (MAP) Pulse Ox O2 Delivery O2 Flow Rate FiO2 07/27/17 14:13 73 16 100 Room Air 07/27/17 08:00 92 Room Air Physical Exam: GEN: WNWD, in no acute distress, alert and appropriate HEENT: NC/AT, normal sclerae, MMM CARDIO: reg rate, S1/2 heard without m/g/r LUNGS: CTAB, no crackles, rales or wheezing. ABD: soft, non-tender, non-distended, no rebound or guarding,+BS EXTREMITY: RP and DP palpable 2+ bilat, no LE edema, extremities are warm and well-perfused, erythema from venous stasis is chronically present. NEURO: CN 2-12 grossly intact, no gross focal deficits. MUSC: moves all extremities equally, no gross focal deficits SKIN: warm and dry Laboratory Results: Last 24 Hours Test 07/26/17 16:27 07/26/17 21:02 07/27/17 08:04 07/27/17 08:23 Bedside Glucose 174 mg/dl 173 mg/dl 123 mg/dl Sodium Level 141 mmol/L Potassium Level mmol/L Chloride Level 103 mmol/L Carbon Dioxide Level 35 mmol/L Anion Gap 3.0 mmol/L Blood Urea Nitrogen 18 mg/dl Creatinine 1.53 mg/dl Est Creatinine Clear Calc Drug Dose 28.4 ml/min Estimated GFR () 37.1 Estimated GFR (Non- 32.0 BUN/Creatinine Ratio 11.6 Random Glucose 130 mg/dl Calcium Level 8.3 mg/dl Test 07/27/17 09:40 07/27/17 11:49 Potassium Level 5.1 mmol/L Bedside Glucose 205 mg/dl Assessment & Plan Doing well on the Remeron and excited about how well this medication might work for her. She feels much better today and daughter is with her at bedside. Cough is resolved and breathing is at baseline. Feel less weak today. Tolerating PO. 1. SOB 2/2 HCAP vs acute diastolic CHF exacerbation-resolved. Holding torsemide and liberalized fluid restriction to no restriction. Cont daily weights. Cont current abx therapy. Sodium restriction. Plan to restart diuretics when BARBARA resolved. 2. BARBARA in setting of CKD Stage III-poss related to diuretic therapy. Cont holding diuretics. Creat not improved much so small bolus given. Repeat PRP in am. 3. Loose stools- in setting of abx use. Check for infection, give imodium as needed. 4. HTN-at goal. Hydralazine was recently stopped 2/2 orthostatic hypotension. Cont Coreg. 5. DMII-Glargine/ISS with carb coverage. glargine increased to 10 Units with pt dropping into the 30s. Glargine was stopped. Cont carb coverage only. Pt has remained at goal.. 6. Hypothyroidism-synthroid per home regimen 7. Anemia-chronic, stable. no evidence of bleeding. Likely related to frequent phlebotomy while inpatient during last two admissions which were back to back. 8. Hypomagnesemia-resolved. Cont Mg supplementation for now. VTE PROPHYLAXIS: Lovenox Full Code Dispo-Med/Surg-medically stable to go to rehab. CM to engage her and get an authorization for rehab. [facility] Consultants: Miroslava Current Inpatient Medications: Current Inpatient Medications Medications (Trade) Dose Ordered Sig/Ethel Route Start Time Stop Time Status Last Admin Dose Admin Acetaminophen (Tylenol Tab) 650 mg Q4H PRN PO 07/22/17 18:00 08/21/17 17:59 Ondansetron HCl (Zofran Inj) 4 mg Q6H PRN IV 07/22/17 18:00 08/21/17 17:59 Aspirin (Ecotrin Tab) 81 mg QAM PO 07/23/17 09:00 08/22/17 08:59 07/27/17 08:51 81 MG Levothyroxine Sodium (Synthroid Tab) 200 mcg DAILYBB PO 07/23/17 09:00 08/22/17 08:59 07/27/17 06:13 200 MCG Loratadine (Claritin Tab) 10 mg QAM PO 07/23/17 09:00 08/22/17 08:59 07/27/17 08:50 10 MG Magnesium Oxide (Mag-Ox Tab) 400 mg BID PO 07/22/17 21:00 08/21/17 20:59 07/27/17 08:51 400 MG Miconazole Nitrate (Desenex Powder) 1 appln UD PRN EXT 07/22/17 18:45 08/21/17 18:44 Pantoprazole Sodium (Protonix Tab) 40 mg QAM PO 07/23/17 09:00 08/22/17 08:59 07/27/17 08:51 40 MG Tramadol HCl (Ultram Tab) 50 mg Q8H PRN PO 07/22/17 18:45 08/21/17 18:44 07/24/17 15:59 50 MG Insulin Aspart (novoLOG ASPART) SLIDING SCALE G... ACHS SC 07/22/17 21:00 08/21/17 20:59 07/27/17 13:00 7 UNITS Glucose (Glucose 40% Gel) 15-30 GRAMS 15 GRAMS... UD PRN PO 07/22/17 19:45 08/21/17 19:44 Glucose (Glucose Chew Tab) 4-8 Tablets 4 Tabl... UD PRN PO 07/22/17 19:45 08/21/17 19:44 Dextrose (Dextrose 50% 50ML Syringe) 25-50ML OF 50% DW IV FOR... UD PRN IV 07/22/17 19:45 08/21/17 19:44 07/25/17 06:23 50 ML Glucagon (Glucagon Inj) 1 mg UD PRN SQ 07/22/17 19:45 08/21/17 19:44 Atorvastatin Calcium (Lipitor Tab) 10 mg QAM PO 07/24/17 09:00 08/23/17 08:59 07/27/17 08:50 10 MG Ceftriaxone Sodium 1 gm/ Dextrose 50 ml @ 100 mls/hr Q24H IV 07/23/17 19:00 07/30/17 18:59 07/26/17 18:26 100 MLS/HR Azithromycin (Zithromax Tab) 500 mg Q24H PO 07/24/17 20:00 07/31/17 19:59 07/26/17 21:37 500 MG Codeine Phosphate/ Guaifenesin (Robitussin-AC Sugar Free Syrup) 10 ml Q6H PRN PO 07/24/17 18:30 08/23/17 18:29 Fluticasone Propionate (Flonase Nasal [place]) 2 sprays DAILY NA 07/25/17 09:00 08/24/17 08:59 07/27/17 08:50 2 SPRAYS Albuterol/ Ipratropium (Duoneb) 3 ml Q6RWA INH 07/25/17 09:00 08/24/17 00:00 07/27/17 14:13 3 ML Torsemide (Demadex Tab) 20 mg BID17 PO 07/25/17 11:00 08/24/17 10:59 Future Hold 07/26/17 08:00 20 MG Carvedilol (Coreg Tab) 12.5 mg QAM PO 07/27/17 08:00 08/21/17 20:59 07/27/17 08:51 12.5 MG Carvedilol (Coreg Tab) 25 mg QPM PO 07/26/17 21:00 08/25/17 20:59 07/26/17 21:37 25 MG Mirtazapine (Remeron Tab) 7.5 mg HS PO 07/26/17 21:00 08/25/17 20:59 07/26/17 21:40 7.5 MG Enoxaparin Sodium (Lovenox Inj) 30 mg DAILY SC 07/28/17 08:00 08/27/17 07:59
--- NOTE | 2017-07-28 12:44 | Progress Note ---
Medicine Progress Note Date & Time of Visit: Jul 28, 2017 at 12:38. Subjective Cough returned some overnight and patient reports throat is somewhat sore. Denies SOB or chest pain. Denies swelling or weight gain. Weakness not an issue for her today. Tolerating PO. Objective Last 8 Hrs Date Time Temp Pulse Resp B/P (MAP) Pulse Ox O2 Delivery O2 Flow Rate FiO2 07/28/17 08:26 36.6 74 18 136/80 (98) 98 Room Air 07/28/17 08:00 98 Room Air 07/28/17 07:30 77 16 92 Room Air Physical Exam: GEN: WNWD, in no acute distress, alert and appropriate HEENT: NC/AT, normal sclerae, MMM CARDIO: reg rate, S1/2 heard without m/g/r LUNGS: CTAB, no crackles or wheezing. Some rales on R lower base. ABD: soft, non-tender, non-distended, no rebound or guarding EXTREMITY: RP and DP palpable 2+ bilat, no LE edema, extremities are warm and well-perfused, erythema from venous stasis is chronically present. TEDs are in place. NEURO: CN 2-12 grossly intact, no gross focal deficits. MUSC: moves all extremities equally, no gross focal deficits SKIN: warm and dry Laboratory Results: 07/23/17 06:14 07/28/17 07:10 Test 07/22/17 13:35 07/22/17 14:25 07/22/17 14:41 07/22/17 22:00 Immature Granulocyte % (Auto) 0.7 % White Blood Count 4.57 K/uL (4.8-10.8) Red Blood Count 3.22 M/uL (4.2-5.4) Hemoglobin 10.1 g/dL (12.0-16.0) Hematocrit 30.4 % (37-47) Mean Corpuscular Volume 94.4 fL (80-100) Mean Corpuscular Hemoglobin 31.4 pg (25-34) Mean Corpuscular Hemoglobin Concent 33.2 g/dl (32-36) Platelet Count 195 K/uL (130-400) Mean Platelet Volume 9.4 fL (7.4-10.4) Neutrophils (%) (Auto) 76.8 % Lymphocytes (%) (Auto) 16.0 % Monocytes (%) (Auto) 6.1 % Eosinophils (%) (Auto) 0.0 % Basophils (%) (Auto) 0.4 % Neutrophils # (Auto) 3.51 K/uL (1.4-6.5) Lymphocytes # (Auto) 0.73 K/uL (1.2-3.4) Monocytes # (Auto) 0.28 K/uL (0.11-0.59) Eosinophils # (Auto) 0.00 K/uL (0-0.5) Basophils # (Auto) 0.02 K/uL (0-0.2) Immature Granulocyte # (Auto) 0.03 K/uL (0.00-0.02) Total Bilirubin 0.3 mg/dl (0.2-1) Aspartate Amino Transf (AST/SGOT) 41 U/L (15-37) Alanine Aminotransferase (ALT/SGPT) 31 U/L (12-78) Alkaline Phosphatase 47 U/L (45-117) Pro-B-Type Natriuretic Peptide 7756 pg/ml (0-1800) Total Protein 5.4 gm/dl (6.4-8.2) Albumin 1.8 gm/dl (3.4-5.0) Globulin 3.6 gm/dl (2.5-4.0) Albumin/Globulin Ratio 0.5 (0.9-2) Beta-Hydroxybutyric Acid 1.44 mg/dL (0.2-2.81) Influenza Type A (RT-PCR) Neg for Influ A (NEG) Influenza Type B (RT-PCR) Neg for Influ B (NEG) Bedside Lactic Acid Venous 3.31 mmol/L (0.90-1.70) Prothrombin Time 12.5 SECONDS (9.0-12.0) Prothromb Time International Ratio 1.2 (0.9-1.1) Activated Partial Thromboplast Time 26.6 SECONDS (21.0-31.0) Partial Thromboplastin Ratio 1.0 Procalcitonin < 0.05 ng/ml (0-0.5) Test 07/22/17 23:01 07/23/17 06:14 07/25/17 06:15 07/26/17 00:00 Lactic Acid Level 1.6 mmol/L (0.4-2.0) Red Blood Count 3.19 M/uL (4.2-5.4) Mean Corpuscular Volume 92.5 fL (80-100) Mean Corpuscular Hemoglobin 30.7 pg (25-34) Mean Corpuscular Hemoglobin Concent 33.2 g/dl (32-36) RDW Standard Deviation 51.0 fL (36.4-46.3) RDW Coefficient of Variation 15.3 % (11.5-14.5) Mean Platelet Volume 9.2 fL (7.4-10.4) Troponin I 0.025 ng/ml (0-0.045) Phosphorus Level 4.1 mg/dl (2.5-4.9) Magnesium Level 2.2 mg/dl (1.8-2.4) Urine Random Creatinine 52.5 mg/dl Urine Random Sodium 74 mEq/L Urine Random Urea Nitrogen 146 mg/dl Test 07/28/17 07:10 07/28/17 11:31 Anion Gap 6.0 mmol/L (3-11) Est Creatinine Clear Calc Drug Dose 38.5 ml/min Estimated GFR () 53.5 Estimated GFR (Non- 46.2 BUN/Creatinine Ratio 13.7 (10-20) Calcium Level 7.7 mg/dl (8.5-10.1) Bedside Glucose 226 mg/dl (70-90) Date/Time Source Procedure Growth Status 07/22/17 14:34 Blood Blood Culture - Final NO GROWTH Complete 07/22/17 19:30 Nasal MRSA DNA Surveillance Screen - Final Specimen Negative for MRSA by DNA Probe Complete 07/26/17 00:00 Stool C.difficile Toxin B Gene (PCR) - Final No C. difficile toxin B gene detected Complete Last 24 Hours Test 07/27/17 17:20 07/27/17 20:21 07/28/17 07:10 07/28/17 08:10 Bedside Glucose 246 mg/dl 296 mg/dl 173 mg/dl Sodium Level 139 mmol/L Potassium Level 4.8 mmol/L Chloride Level 107 mmol/L Carbon Dioxide Level 26 mmol/L Anion Gap 6.0 mmol/L Blood Urea Nitrogen 16 mg/dl Creatinine 1.13 mg/dl Est Creatinine Clear Calc Drug Dose 38.5 ml/min Estimated GFR () 53.5 Estimated GFR (Non- 46.2 BUN/Creatinine Ratio 13.7 Random Glucose 167 mg/dl Calcium Level 7.7 mg/dl Test 07/28/17 11:31 Bedside Glucose 226 mg/dl Assessment & Plan Cough returned some overnight and patient reports throat is somewhat sore. Denies SOB or chest pain. Denies swelling or weight gain. Weakness not an issue for her today. Tolerating PO. 1. SOB 2/2 HCAP vs acute diastolic CHF exacerbation-resolved. Cont daily weights. Cont current abx therapy. Sodium restriction. Will restart her on Lasix 40mg PO daily. 2. BARBARA in setting of CKD Stage III-poss related to diuretic therapy. Resolved. Cont with Lasix in setting of some rales on exam and cough overnight. 3. Loose stools- in setting of abx use. no infection present, give imodium as needed. 4. HTN-at goal. Hydralazine was recently stopped 2/2 orthostatic hypotension. Cont Coreg. 5. DMII-Glargine/ISS with carb coverage. glargine increased to 10 Units with pt dropping into the 30s. Glargine was stopped. Cont carb coverage only. Elevated sugars overnight. ISS was tightened and Lantus 5Units qAM was started this morning. 6. Hypothyroidism-Synthroid per home regimen 7. Anemia-chronic, stable. no evidence of bleeding. Likely related to frequent phlebotomy while inpatient during last two admissions which were back to back vs ACD 8. Hypomagnesemia-resolved. Cont Mg supplementation for now. 9. Sore throat-poss post-nasal drip? cont Flonase and added phenol spray VTE PROPHYLAXIS: Lovenox Full Code Dispo-Med/Surg-medically stable to go to rehab. CM to engage her and get an authorization for rehab. DO Maricarmen Nair Hospitalist Consultants: Miroslava Current Inpatient Medications: Current Inpatient Medications Medications (Trade) Dose Ordered Sig/Ethel Route Start Time Stop Time Status Last Admin Dose Admin Acetaminophen (Tylenol Tab) 650 mg Q4H PRN PO 07/22/17 18:00 08/21/17 17:59 Ondansetron HCl (Zofran Inj) 4 mg Q6H PRN IV 07/22/17 18:00 08/21/17 17:59 Aspirin (Ecotrin Tab) 81 mg QAM PO 07/23/17 09:00 08/22/17 08:59 07/28/17 08:10 81 MG Levothyroxine Sodium (Synthroid Tab) 200 mcg DAILYBB PO 07/23/17 09:00 08/22/17 08:59 07/28/17 05:30 200 MCG Loratadine (Claritin Tab) 10 mg QAM PO 07/23/17 09:00 08/22/17 08:59 07/28/17 08:10 10 MG Magnesium Oxide (Mag-Ox Tab) 400 mg BID PO 07/22/17 21:00 08/21/17 20:59 07/28/17 08:10 400 MG Miconazole Nitrate (Desenex Powder) 1 appln UD PRN EXT 07/22/17 18:45 08/21/17 18:44 Pantoprazole Sodium (Protonix Tab) 40 mg QAM PO 07/23/17 09:00 08/22/17 08:59 07/28/17 08:10 40 MG Tramadol HCl (Ultram Tab) 50 mg Q8H PRN PO 07/22/17 18:45 08/21/17 18:44 07/27/17 23:53 50 MG Insulin Aspart (novoLOG ASPART) SLIDING SCALE G... ACHS SC 07/22/17 21:00 08/21/17 20:59 07/28/17 08:49 10 UNITS Glucose (Glucose 40% Gel) 15-30 GRAMS 15 GRAMS... UD PRN PO 07/22/17 19:45 08/21/17 19:44 Glucose (Glucose Chew Tab) 4-8 Tablets 4 Tabl... UD PRN PO 07/22/17 19:45 08/21/17 19:44 Dextrose (Dextrose 50% 50ML Syringe) 25-50ML OF 50% DW IV FOR... UD PRN IV 07/22/17 19:45 08/21/17 19:44 07/25/17 06:23 50 ML Glucagon (Glucagon Inj) 1 mg UD PRN SQ 07/22/17 19:45 08/21/17 19:44 Atorvastatin Calcium (Lipitor Tab) 10 mg QAM PO 07/24/17 09:00 08/23/17 08:59 07/28/17 08:10 10 MG Ceftriaxone Sodium 1 gm/ Dextrose 50 ml @ 100 mls/hr Q24H IV 07/23/17 19:00 07/30/17 18:59 07/27/17 18:23 100 MLS/HR Azithromycin (Zithromax Tab) 500 mg Q24H PO 07/24/17 20:00 07/31/17 19:59 07/27/17 22:07 500 MG Codeine Phosphate/ Guaifenesin (Robitussin-AC Sugar Free Syrup) 10 ml Q6H PRN PO 07/24/17 18:30 08/23/17 18:29 Fluticasone Propionate (Flonase Nasal [place]) 2 sprays DAILY NA 07/25/17 09:00 08/24/17 08:59 07/28/17 08:11 2 SPRAYS Albuterol/ Ipratropium (Duoneb) 3 ml Q6RWA INH 07/25/17 09:00 08/24/17 00:00 07/28/17 07:28 3 ML Torsemide (Demadex Tab) 20 mg BID17 PO 07/25/17 11:00 08/24/17 10:59 Future Hold 07/26/17 08:00 20 MG Carvedilol (Coreg Tab) 12.5 mg QAM PO 07/27/17 08:00 08/21/17 20:59 07/28/17 08:10 12.5 MG Carvedilol (Coreg Tab) 25 mg QPM PO 07/26/17 21:00 08/25/17 20:59 07/27/17 22:07 25 MG Mirtazapine (Remeron Tab) 7.5 mg HS PO 07/26/17 21:00 08/25/17 20:59 07/27/17 22:08 7.5 MG Enoxaparin Sodium (Lovenox Inj) 30 mg DAILY SC 07/28/17 08:00 08/27/17 07:59 07/28/17 08:10 30 MG Insulin Glargine (Lantus Solostar [place]) 5 units QAM SC 07/28/17 09:15 08/27/17 09:14 07/28/17 08:49 5 UNITS Furosemide (Lasix Tab) 40 mg QAM PO 07/28/17 10:30 08/27/17 10:29 07/28/17 10:20 40 MG Phenol (Chloraseptic 1.4% [place]) 2 sprays Q1H PRN MT 2/25/18 09:45 08/27/17 09:44 07/28/17 10:20 2 SPRAYS
[2017-07-28] MEDS: CEFTRIAXONE SOD INJ 1 GM in DEXTROSE 5% ADD-VANTAGE 50ML 50 ML IV SCH (17:58)
[2017-07-28] MEDS: AZITHROMYCIN 250 MG TAB PO SCH (21:16)
[2017-07-28] MEDS: MIRTAZAPINE TAB 15 MG TAB PO SCH (21:16)
[2017-07-28] MEDS: CARVEDILOL 25 MG TAB PO SCH (21:16)
[2017-07-29] VITALS (9 sets, daily range): BP systolic 101–158; BP diastolic 64–80; PULSE 68–81; TEMP 36.6–36.8; O2SAT 94–100
[2017-07-29] MEDS: LEVOTHYROXINE 200 MCG TAB PO SCH (06:14)
[2017-07-29 06:59] LABS: HEMATOCRIT 28.8 % (37-47); HEMOGLOBIN 9.2 g/dL (12.0-16.0); MEAN CELL VOLUME 94.4 fL (80-100); MEAN CORPUSCULAR HEMOGLOBIN 30.2 pg (25-34); MEAN CORPUSCULAR HGB CONC 31.9 g/dl (32-36); MEAN PLATELET VOLUME 8.9 fL (7.4-10.4); PLATELET COUNT 300 K/uL (130-400); RED CELL DISTRIBUTION WIDTH CV 15.2 % (11.5-14.5); RED CELL DISTRIBUTION WIDTH SD 52.2 fL (36.4-46.3); WHITE BLOOD COUNT 5.49 K/uL (4.8-10.8)
[2017-07-29 07:33] LABS: CALCIUM 8.1 mg/dl (8.5-10.1); CREATININE 1.39 mg/dl (0.60-1.20); POTASSIUM 5.1 mmol/L (3.5-5.1)
[2017-07-29] MEDS: ALBUT/IPRATROP 3MG/0.5MG NEB 3 ML VIAL INH SCH ×3 (07:35→19:35)
[2017-07-29] MEDS: TRAMADOL HCL 50 MG TAB PO PRN ×2 (08:20→19:24)
[2017-07-29] MEDS: MAGNESIUM OXIDE 400 MG TAB PO SCH ×2 (08:21→19:25)
[2017-07-29] MEDS: ASPIRIN 81 MG ECTAB PO SCH (08:21)
[2017-07-29] MEDS: FUROSEMIDE 40 MG TAB PO SCH (08:21)
[2017-07-29] MEDS: PANTOprazole SOD 40 MG TAB PO SCH (08:21)
[2017-07-29] MEDS: CARVEDILOL 12.5 MG TAB PO SCH (08:21)
[2017-07-29] MEDS: LORATADINE 10 MG TAB PO SCH (08:21)
[2017-07-29] MEDS: ATORVASTATIN 10 MG TAB PO SCH (08:21)
[2017-07-29] MEDS: ENOXAPARIN 30 MG/0.3 ML SYR SC SCH (08:22)
[2017-07-29] MEDS: FLUTICASONE PROPIONATE NA SPR 16 GM BTL SCH (08:22)
[2017-07-29] MEDS: CHLORASEPTIC 1.4% SOLN 180 ML BTL MT PRN (08:22)
[2017-07-29] MEDS: INSULIN ASPART 100 UNITS/ML 3 ML PEN SC SCH ×4 (08:30→20:48)
[2017-07-29] MEDS: INSULIN GLARGINE SOLOSTAR 100 UNITS/ML 3 ML PEN SC SCH (08:31)
[2017-07-29] MEDS: LOPERAMIDE HCL 2 MG CAP PO PRN ×2 (11:06→19:24)
[2017-07-29] MEDS: CEFTRIAXONE SOD INJ 1 GM in DEXTROSE 5% ADD-VANTAGE 50ML 50 ML IV SCH (19:12)
[2017-07-29] MEDS: AZITHROMYCIN 250 MG TAB PO SCH (19:25)
[2017-07-29] MEDS: CARVEDILOL 25 MG TAB PO SCH (20:51)
[2017-07-29] MEDS: MIRTAZAPINE TAB 15 MG TAB PO SCH (20:51)
--- NOTE | 2017-07-29 23:26 | Progress Note ---
Medicine Progress Note Date & Time of Visit: Jul 29, 2017 at 15:32. Subjective Denies cough. Denies SOB or chest pain. Denies swelling or weight gain. Weakness not an issue for her today. Tolerating PO. Found crying in the room because she cannot taste her food. Objective Last 8 Hrs Date Time Temp Pulse Resp B/P (MAP) Pulse Ox O2 Delivery O2 Flow Rate FiO2 07/29/17 14:48 36.7 81 18 101/64 (76) 94 07/29/17 08:15 Room Air 07/29/17 08:05 98 Room Air 07/29/17 08:03 36.8 70 14 158/78 (104) 98 Room Air 07/29/17 07:46 68 16 98 Room Air Physical Exam: GEN: WNWD, in no acute distress, alert and appropriate HEENT: NC/AT, normal sclerae, MMM CARDIO: reg rate, S1/2 heard without m/g/r LUNGS: CTAB, no crackles or wheezing. Some rales on R lower base. ABD: soft, non-tender, non-distended, no rebound or guarding EXTREMITY: RP and DP palpable 2+ bilat, no LE edema, extremities are warm and well-perfused, erythema from venous stasis is chronically present. TEDs are in place. NEURO: CN 2-12 grossly intact, no gross focal deficits. MUSC: moves all extremities equally, no gross focal deficits SKIN: warm and dry Laboratory Results: Last 24 Hours Test 07/28/17 17:11 07/28/17 20:22 07/29/17 06:40 07/29/17 07:58 Bedside Glucose 79 mg/dl 130 mg/dl 141 mg/dl White Blood Count 5.49 K/uL Red Blood Count 3.05 M/uL Hemoglobin 9.2 g/dL Hematocrit 28.8 % Mean Corpuscular Volume 94.4 fL Mean Corpuscular Hemoglobin 30.2 pg Mean Corpuscular Hemoglobin Concent 31.9 g/dl RDW Standard Deviation 52.2 fL RDW Coefficient of Variation 15.2 % Platelet Count 300 K/uL Mean Platelet Volume 8.9 fL Sodium Level 142 mmol/L Potassium Level 5.1 mmol/L Chloride Level 107 mmol/L Carbon Dioxide Level 32 mmol/L Anion Gap 3.0 mmol/L Blood Urea Nitrogen 15 mg/dl Creatinine 1.39 mg/dl Est Creatinine Clear Calc Drug Dose 31.5 ml/min Estimated GFR () 41.7 Estimated GFR (Non- 36.0 BUN/Creatinine Ratio 10.8 Random Glucose 148 mg/dl Calcium Level 8.1 mg/dl Test 07/29/17 12:09 Bedside Glucose 206 mg/dl Assessment & Plan Denies cough. Denies SOB or chest pain. Denies swelling or weight gain. Weakness not an issue for her today. Tolerating PO. Found crying in the room because she cannot taste her food. 1. SOB 2/2 HCAP vs acute diastolic CHF exacerbation-resolved. Cont daily weights. Cont current abx therapy. Sodium restriction. Cont torsemide per [facility] 2. BARBARA in setting of CKD Stage III-poss related to diuretic therapy. Resolved. Cont with Lasix in setting of some rales on exam and cough overnight. 3. Loose stools- in setting of abx use. no infection present, give Imodium as needed. 4. HTN-at goal. Hydralazine was recently stopped 2/2 orthostatic hypotension. Cont Coreg. 5. DMII-Glargine/ISS with carb coverage. glargine increased to 10 Units with pt dropping into the 30s. Glargine was stopped. Cont carb coverage only. Elevated sugars overnight. ISS was tightened and Lantus 5Units qAM was started- -hypoglycemia again today. Stopped Lantus=consider liberalizing ISS w carb coverage. 6. Hypothyroidism-Synthroid per home regimen 7. Anemia-chronic, stable. no evidence of bleeding. Likely related to frequent phlebotomy while inpatient during last two admissions which were back to back vs ACD 8. Hypomagnesemia-resolved. Cont Mg supplementation for now. VTE PROPHYLAXIS: Lovenox Full Code Dispo-Med/Surg-medically stable to go to rehab. to engage her and get an authorization for rehab. DO Maricarmen Nair Hospitalist Consultants: Miroslava Current Inpatient Medications: Current Inpatient Medications Medications (Trade) Dose Ordered Sig/Ethel Route Start Time Stop Time Status Last Admin Dose Admin Acetaminophen (Tylenol Tab) 650 mg Q4H PRN PO 07/22/17 18:00 08/21/17 17:59 Ondansetron HCl (Zofran Inj) 4 mg Q6H PRN IV 07/22/17 18:00 08/21/17 17:59 Aspirin (Ecotrin Tab) 81 mg QAM PO 07/23/17 09:00 08/22/17 08:59 07/29/17 08:21 81 MG Levothyroxine Sodium (Synthroid Tab) 200 mcg DAILYBB PO 07/23/17 09:00 08/22/17 08:59 07/29/17 06:14 200 MCG Loratadine (Claritin Tab) 10 mg QAM PO 07/23/17 09:00 08/22/17 08:59 07/29/17 08:21 10 MG Magnesium Oxide (Mag-Ox Tab) 400 mg BID PO 07/22/17 21:00 08/21/17 20:59 07/29/17 08:21 400 MG Miconazole Nitrate (Desenex Powder) 1 appln UD PRN EXT 07/22/17 18:45 08/21/17 18:44 Pantoprazole Sodium (Protonix Tab) 40 mg QAM PO 07/23/17 09:00 08/22/17 08:59 07/29/17 08:21 40 MG Tramadol HCl (Ultram Tab) 50 mg Q8H PRN PO 07/22/17 18:45 08/21/17 18:44 07/29/17 08:20 50 MG Insulin Aspart (novoLOG ASPART) SLIDING SCALE G... ACHS SC 07/22/17 21:00 08/21/17 20:59 07/29/17 13:15 8 UNITS Glucose (Glucose 40% Gel) 15-30 GRAMS 15 GRAMS... UD PRN PO 07/22/17 19:45 08/21/17 19:44 Glucose (Glucose Chew Tab) 4-8 Tablets 4 Tabl... UD PRN PO 07/22/17 19:45 08/21/17 19:44 Dextrose (Dextrose 50% 50ML Syringe) 25-50ML OF 50% DW IV FOR... UD PRN IV 07/22/17 19:45 08/21/17 19:44 07/25/17 06:23 50 ML Glucagon (Glucagon Inj) 1 mg UD PRN SQ 07/22/17 19:45 08/21/17 19:44 Atorvastatin Calcium (Lipitor Tab) 10 mg QAM PO 07/24/17 09:00 08/23/17 08:59 07/29/17 08:21 10 MG Ceftriaxone Sodium 1 gm/ Dextrose 50 ml @ 100 mls/hr Q24H IV 07/23/17 19:00 07/30/17 18:59 07/28/17 17:58 100 MLS/HR Azithromycin (Zithromax Tab) 500 mg Q24H PO 07/24/17 20:00 07/31/17 19:59 07/28/17 21:16 500 MG Codeine Phosphate/ Guaifenesin (Robitussin-AC Sugar Free Syrup) 10 ml Q6H PRN PO 07/24/17 18:30 08/23/17 18:29 Fluticasone Propionate (Flonase Nasal [place]) 2 sprays DAILY NA 07/25/17 09:00 08/24/17 08:59 07/29/17 08:22 2 SPRAYS Albuterol/ Ipratropium (Duoneb) 3 ml Q6RWA INH 07/25/17 09:00 08/24/17 00:00 07/29/17 07:35 3 ML Torsemide (Demadex Tab) 20 mg BID17 PO 07/25/17 11:00 08/24/17 10:59 Future Hold 07/26/17 08:00 20 MG Carvedilol (Coreg Tab) 12.5 mg QAM PO 07/27/17 08:00 08/21/17 20:59 07/29/17 08:21 12.5 MG Carvedilol (Coreg Tab) 25 mg QPM PO 07/26/17 21:00 08/25/17 20:59 07/28/17 21:16 25 MG Mirtazapine (Remeron Tab) 7.5 mg HS PO 07/26/17 21:00 08/25/17 20:59 07/28/17 21:16 7.5 MG Enoxaparin Sodium (Lovenox Inj) 30 mg DAILY SC 07/28/17 08:00 08/27/17 07:59 07/29/17 08:22 30 MG Insulin Glargine (Lantus Solostar Pen) 5 units QAM SC 07/28/17 09:15 08/27/17 09:14 07/29/17 08:31 5 UNITS Furosemide (Lasix Tab) 40 mg QAM PO 07/28/17 10:30 08/27/17 10:29 07/29/17 08:21 40 MG Phenol (Chloraseptic 1.4% [place]) 2 sprays Q1H PRN MT 07/28/17 09:45 08/27/17 09:44 07/29/17 08:22 2 SPRAYS Loperamide HCl (Imodium Cap) 2 mg UD PRN PO 07/28/17 12:45 08/27/17 12:44 07/29/17 11:06 2 MG
[2017-07-30] MEDS: LEVOTHYROXINE 200 MCG TAB PO SCH (06:18)
[2017-07-30 06:55] LABS: CALCIUM 8.1 mg/dl (8.5-10.1); CREATININE 1.48 mg/dl (0.60-1.20); POTASSIUM 4.4 mmol/L (3.5-5.1)
[2017-07-30 07:22] VITALS: PULSE 71; O2SAT 96
[2017-07-30] MEDS: ALBUT/IPRATROP 3MG/0.5MG NEB 3 ML VIAL INH SCH (07:22)
[2017-07-30] MEDS: FLUTICASONE PROPIONATE NA SPR 16 GM BTL SCH (07:34)
[2017-07-30] MEDS: ASPIRIN 81 MG ECTAB PO SCH (07:35)
[2017-07-30] MEDS: CARVEDILOL 12.5 MG TAB PO SCH (07:35)
[2017-07-30] MEDS: PANTOprazole SOD 40 MG TAB PO SCH (07:35)
[2017-07-30] MEDS: MAGNESIUM OXIDE 400 MG TAB PO SCH (07:36)
[2017-07-30] MEDS: ATORVASTATIN 10 MG TAB PO SCH (07:36)
[2017-07-30] MEDS: LORATADINE 10 MG TAB PO SCH (07:36)
[2017-07-30] MEDS: ENOXAPARIN 30 MG/0.3 ML SYR SC SCH (07:37)
[2017-07-30] MEDS: CHLORASEPTIC 1.4% SOLN 180 ML BTL MT PRN (07:38)
[2017-07-30] MEDS: LOPERAMIDE HCL 2 MG CAP PO PRN (07:39)
[2017-07-30 08:00] VITALS: BP 146/70; PULSE 72; TEMP 36.8; O2SAT 99
[2017-07-30] MEDS ORDERED: TORSEMIDE 20 MG TAB PO SCH (08:00)
[2017-07-30] MEDS: INSULIN ASPART 100 UNITS/ML 3 ML PEN SC SCH ×2 (09:00→12:30)
[2017-07-30 11:51] VITALS: BP 146/70; PULSE 72; TEMP 36.8; O2SAT 99
[2017-07-30 12:28] VITALS: Ht 157.5 cm; Wt 77.2 kg
--- NOTE | 2017-07-30 13:51 | Progress Note ---
Internal Med Progress Note Date of Service: Jul 30, 2017. Provider Documentation: SUBJECTIVE: Seen and examined at bedside Feels well overall Denies any symptoms Eager to get discharged OBJECTIVE: Vital Signs-as noted below Physical Exam: Vitals signs as noted above General Appearance:Moderately built and nourished, no apparent distress Head: normocephalic, Atraumatic Eyes: normal inspection, EOMI, PERRL Neck: supple, Trachea midline Respiratory/Chest: Normal breath sounds, scattered rales Cardiovascular: S1, S2, No murmur Abdomen/GI:Soft, Non tender, Bowel sounds present Extremities/Musculoskelatal:normal inspection, B/L LE edema Neurologic/Psych:AAOX3, grossly no focal neurological deficits Skin: normal color, warm Lab data as noted below. ASSESSMENT & PLAN: HCAP Acute diastolic CHF exacerbation continue daily weights, I/Os Completed antibiotic therapy Sodium restriction Continue torsemide Appreciate Cardiology Input BARBARA in setting of CKD Stage III: Likely 2/2 diuretic therapy monitor renal function HTN: Hydralazine was recently stopped 2/2 orthostatic hypotension Continue Coreg DM II: Continue basal Insulin, ISS Hypothyroidism continue Synthroid Anemia: chronic stable no evidence of bleeding Hypomagnesemia resolved DVT Px: Lovenox SQ Code Status Full Code Disposition: Plan to discharge Home with Home Health today Follow up with for routine care on August 05, 2017 at 5:25pm Follow up with your Glove Turner Vj Acevedo PA-C on 2017 at 1:45pm Follow up with your Psychiatrist as needed Get Blood test (Basic metabolic Panel) and follow up with your doctor with results Seek immediate medical attention if your symptoms reoccur or worsen Vital Signs: Date Time Temp Pulse Resp B/P (MAP) Pulse Ox O2 Delivery O2 Flow Rate FiO2 07/30/17 11:51 36.8 72 20 99 Room Air 07/30/17 08:30 Room Air 07/30/17 08:27 Room Air 07/30/17 08:00 36.8 72 20 146/70 (95) 99 Room Air 07/30/17 07:22 71 18 96 Room Air 07/30/17 00:00 Room Air 07/29/17 23:29 36.6 79 18 146/77 (100) 100 Room Air 07/29/17 20:52 76 136/80 (98) 07/29/17 19:31 77 16 96 Room Air 07/29/17 16:00 94 Room Air 07/29/17 14:48 36.7 81 18 101/64 (76) 94 07/29/17 14:09 75 16 94 Room Air Lab Results: Results Past 24 Hours Test 07/29/17 17:03 07/29/17 17:20 07/29/17 17:48 07/29/17 18:10 Range/Units Bedside Glucose 54 52 67 84 70-90 mg/dl Test 07/29/17 20:46 07/30/17 05:48 07/30/17 08:10 07/30/17 11:39 Range/Units Bedside Glucose 138 100 253 70-90 mg/dl Sodium Level 141 136-145 mmol/L Potassium Level 4.4 3.5-5.1 mmol/L Chloride Level 106 98-107 mmol/L Carbon Dioxide Level 28 21-32 mmol/L Anion Gap 7.0 3-11 mmol/L Blood Urea Nitrogen 16 7-18 mg/dl Creatinine 1.48 0.60-1.20 mg/dl Est Creatinine Clear Calc Drug Dose 29.6 ml/min Estimated GFR () 38.6 Estimated GFR (Non- 33.3 BUN/Creatinine Ratio 11.0 10-20 Random Glucose 105 70-99 mg/dl Calcium Level 8.1 8.5-10.1 mg/dl Magnesium Level 1.8 1.8-2.4 mg/dl
[2017-07-30] MEDS ORDERED: CRG125 PO (13:59)
[2017-07-30] MEDS ORDERED: RMR15 PO (13:59)
[2017-07-30] MEDS ORDERED: CRG25 PO (13:59)
--- NOTE | 2017-07-30 14:01 | Discharge Summary ---
Discharge Summary Date of Service Jul 30, 2017. Discharge Summary Admission Date: Jul 22, 2017 at 17:55 Discharge Date: Jul 30, 2017 Discharge Disposition: Home with services Principal Diagnosis: CHF, HCAP, BARBARA Procedures: Venous Doppler: No DVT within the right or left lower extremity. CXR: 1. Cardiomegaly with evidence of congestive failure. 2. Perihilar airspace opacities likely represent a component of interstitial edema. Correlate clinically for evidence of superimposed pneumonia. 3. Small pleural effusions. Consultations: Cardiology, Psychiatry Pending Studies/Follow-Up: Follow up with for routine care on August 05, 2017 at 5:25pm Follow up with your Toy Assembly Supervisor Vj Acevedo PA-C on 2017 at 1:45pm Follow up with your Psychiatrist as needed Get Blood test (Basic metabolic Panel) and follow up with your doctor with results Discuss with your Toy Assembly Supervisor regarding dosing of Torsemide as advised Seek immediate medical attention if your symptoms reoccur or worsen Call your Primary Care doctor if any of the following symptoms or problems start or get worse: * Shortness of breath or difficulty breathing * Wake up at night short of breath * Chest pain * Cough * Swelling of your hands, feet, or legs * More fatigued or tired with your normal activity * Palpitations - sudden fast heart beats WEIGHT * Weigh yourself every morning after using the bathroom. * Use the same scale. * Wear the same amount of clothing. * Write your weight down on a chart. * Call your Primary Care doctor if you gain more than 2-3 pounds in 1-2 days. MEDICATIONS * Use this discharge instruction sheet for medication instructions. * Take your medications at the time your doctor ordered. * Do not skip a dose of your medicines. * If you miss a dose of medicine, take it as soon as possible, but DO NOT DOUBLE A DOSE. * Read your medicine information when you get home. * Know all of the side effects of your medicine. If in doubt, ask your pharmacist * Call your Primary Care doctor's office if you have any side effects. * Be sure all of your doctors know what medicine and herbs you take (including cold, flu, and herbal medicine). Take the following with you to your follow-up doctor appointments: * Weight Chart * Medication List * List of questions Do not drink excessive alcohol, beer or wine. Medication Reconciliation New Medications: Carvedilol (Carvedilol) 12.5 Mg Tab 12.5 MG PO QAM for 30 Days, #30 TAB Carvedilol (Carvedilol) 25 Mg Tab 25 MG PO QPM for 30 Days, #30 TAB 1 Refill Mirtazapine (Mirtazapine) 15 Mg Tab 7.5 MG PO HS for 30 Days, #30 TAB 1 Refill Continued Medications: Ascorbic Acid (Vitamin C) 500 Mg Tab 1 TAB PO QAM Aspirin (Aspirin Chewable) 81 Mg Chew 81 MG PO QAM Cholecalciferol (Vitamin D3) 2,000 Unit Tab 1 TAB PO QAM, TAB Insulin Aspart (Novolog Flexpen) 100 Units/Ml Inj 5 UNITS SC TID with each meal Insulin Glargine (Lantus) 100 Unit/Ml Inj 5 SC QPM, VIAL Ipratropium [place] (Atrovent 0.02% Soln) 2.5 Ml Nebu 1 DOSE INH DIRECTED PRN for Shortness of Breath Levothyroxine Sodium (Levothyroxine Sodium) 200 Mcg Tab 1 TAB PO QAM for 90 Days, #90 TAB 3 Refills Loratadine (Claritin) 10 Mg Tab 10 MG PO QAM, TAB Magnesium Oxide (Mag-Ox) 400 Mg Tab 400 MG PO BID, TAB Miconazole Nitrate (Desenex Shake Powder) 43 Appln/43 Gm Powd 1 APPLN EXT UD PRN for Affected Skin Folds for 7 Days Pantoprazole (Protonix) 40 Mg Tab 40 MG PO QAM, #30 TAB Simvastatin (Zocor) 10 Mg Tab 10 MG PO QPM, TAB Torsemide (Demadex) 20 Mg Tab 20 MG PO DAILY for 30 Days, #30 TAB Tramadol (Ultram) 50 Mg Tab 50 MG PO Q8H PRN for Pain, TAB Discontinued Medications: Carvedilol (Coreg) 25 Mg Tab 25 MG PO BID, TAB Sertraline HCl (Sertraline HCl) 50 Mg Tab 50 MG PO QAM for 30 Days, #30 TAB Admission Information HPI (per Admitting provider): 81-year-old female followed by Dr. [facility]. History of nonobstructive coronary artery disease per cardiac catheterization in 2011, chronic left ventricular diastolic heart failure, mitral valve regurgitation with mitral valve repair in 2012, patent foramen ovale status post surgical closure, and other problems noted below. She was hospitalized on 07/07/17 after a fall or syncopal episode at home. Noted to have significant orthostatic hypotension despite having significant lower extremity edema. Diuretic dosing at home was torsemide 20 mg BID. Torsemide held due to orthostatic hypotension. Patient had persistent orthostatic hypotension associated with weakness/ lightheadedness, so hydralazine was discontinued. Torsemide was resumed at a reduced dose of 20 mg daily. Echocardiogram during that hospital stay demonstrated mild concentric LVH, LVEF 65-70%. There was evidence of prior mitral valve repair and annuloplasty ring, mitral calcification, mild mitral stenosis, no significant mitral regurgitation. Moderate tricuspid regurgitation and elevated systolic pulmonary pressures noted. Patient was discharged to home with instructions to take torsemide 20 mg daily with an additional dose as needed in the afternoon for worsening lower extremity edema. Since returning home, she has noted increasing lower extremity edema. She has not been following her weight closely. Did not take extra doses of torsemide in the afternoon. 2 days prior to admission she noticed a cough that was productive of clear sputum. No fever or sweats, but experienced some chills. Noted chest pain with coughing, but no anginal symptoms. Came to the ED for evaluation because of worsening symptoms. In the ED she was noted to have some blood-tinged sputum. . Physical Exam (per Admitting): General Appearance: no apparent distress, + obese Head: normocephalic, atraumatic Eyes: normal inspection, PERRL, EOMI, sclerae normal, + pertinent finding ( Conjunctivae clear) ENT: normal ENT inspection, hearing grossly normal, pharynx normal, + pertinent finding (Edentulous wearing upper dentures) Neck: supple, no adenopathy, thyroid normal, trachea midline Respiratory/Chest: + rales (Bibasilar), + rhonchi (Few, scattered), + wheezing (Diffuse, mild) Cardiovascular: regular rate, rhythm, no gallop, + systolic murmur (2/6 systolic murmur left sternal border), + abnormal peripheral pulses (unable to palpate pedal pulses due to edema), + pertinent finding (+ JVD, 3+ pretibial & pedal edema) Abdomen/GI: normal bowel sounds, non tender, soft, no organomegaly Extremities/Musculoskelatal: + calf tenderness (mild bilateral), + pertinent finding (no cyanosis; no digital clubbing) Neurologic/Psych: ham stringer II-XII nml as tested (PERRL, EOMI, no facial palsy, no dysarthria), no motor/sensory deficits (generalized weakness), alert, normal mood/affect, oriented x 3, + abnormal reflexes (patellar reflexes 1/2 bilaterally) Skin: normal color, warm/dry, no rash Lymphatic: no adenopathy (cervical) Hospital Course HCAP Acute diastolic CHF exacerbation continue daily weights, I/Os Completed antibiotic therapy Sodium restriction Continue torsemide Appreciate Cardiology Input BARBARA in setting of CKD Stage III: Likely 2/2 diuretic therapy monitor renal function HTN: Hydralazine was recently stopped 2/2 orthostatic hypotension Continue Coreg DM II: Continue basal Insulin, ISS Hypothyroidism continue Synthroid Anemia: chronic stable no evidence of bleeding Hypomagnesemia resolved DVT Px: Lovenox SQ Code Status Full Code Disposition: Plan to discharge Home with Home Health today Follow up with for routine care on August 05, 2017 at 5:25pm Follow up with your Toy Assembly Supervisor Vj Acevedo PA-C on 2017 at 1:45pm Follow up with your Psychiatrist as needed Get Blood test (Basic metabolic Panel) and follow up with your doctor with results Seek immediate medical attention if your symptoms reoccur or worsen Total time spent on discharge = 34 minutes This includes examination of the patient, discharge planning, medication reconciliation, and communication with other providers. Discharge Instructions Discharge Instructions Date of Service Jul 30, 2017. Admission Reason for Admission: CHF Discharge Discharge Diagnosis / Problem: CHF, HCAP, BARBARA Discharge Goals Goal(s): Decrease discomfort, Improve function Activity Recommendations Activity Limitations: resume your previous activity Exercise/Sports Limitations: as tolerated . Instructions / Follow-Up Instructions / Follow-Up Follow up with for routine care on August 05, 2017 at 5:25pm Follow up with your Toy Assembly Supervisor Vj Acevedo PA-C on 2017 at 1:45pm Follow up with your Psychiatrist as needed Get Blood test (Basic metabolic Panel) and follow up with your doctor with results Discuss with your Toy Assembly Supervisor regarding dosing of Torsemide as advised Seek immediate medical attention if your symptoms reoccur or worsen Call your Primary Care doctor if any of the following symptoms or problems start or get worse: * Shortness of breath or difficulty breathing * Wake up at night short of breath * Chest pain * Cough * Swelling of your hands, feet, or legs * More fatigued or tired with your normal activity * Palpitations - sudden fast heart beats WEIGHT * Weigh yourself every morning after using the bathroom. * Use the same scale. * Wear the same amount of clothing. * Write your weight down on a chart. * Call your Primary Care doctor if you gain more than 2-3 pounds in 1-2 days. MEDICATIONS * Use this discharge instruction sheet for medication instructions. * Take your medications at the time your doctor ordered. * Do not skip a dose of your medicines. * If you miss a dose of medicine, take it as soon as possible, but DO NOT DOUBLE A DOSE. * Read your medicine information when you get home. * Know all of the side effects of your medicine. If in doubt, ask your pharmacist * Call your Primary Care doctor's office if you have any side effects. * Be sure all of your doctors know what medicine and herbs you take (including cold, flu, and herbal medicine). Take the following with you to your follow-up doctor appointments: * Weight Chart * Medication List * List of questions Do not drink excessive alcohol, beer or wine. Current Hospital Diet Patient's current hospital diet: Diabetes Type 2 Diet, Low Sodium Diet (2gm Na) Discharge Diet Recommended Diet: Low Sodium Diet (2gm Na), Diabetes Type 2 Diet Pending Studies Studies pending at discharge: no Laboratory Results Hemoglobin A1c Test 07/08/17 05:20 Range/Units Estimated Average Glucose 303 mg/dl Hemoglobin A1c 12.2 H 4.5-5.6 % Medical Emergencies . Who to Call and When: Call 911 or go to the Emergency Room if: * If at any time you feel your situation is an emergency * You have tightness or pain in your chest that does not go away with rest or Nitroglycerin * You are very short of breath even with rest . Non-Emergent Contact Non-Emergency issues call your: Primary Care Provider, Toy [employer] Supervisor Call Non-Emergent contact if: you have a fever, your pain is not controlled, your pain is worsening, your pain is unusual for you, your pain is concerning you, you have any medication questions Seek immediate medical attention if your symptoms reoccur or worsen . . "Provider Documentation" section prepared by Darwin Paz. . VTE Core Measure Inpt VTE Proph given/why not?: Enoxaparin (Lovenox)SQ <Electronically signed by Darwin Paz MD> Signed: 07/30/17 1400 Signed: The status of this report is Signed * If report status is Draft, the document has not been finalized by the responsible provider.
== END 2017-07-30 14:14 | disposition home health service (06) | DRG 291 ==
LOC: C.EDB 13:08 → C.2T 17:55 → ENRESERV 18:33 → C.4E 07-25 16:24
PROVIDERS: ADMIT Hospitalist; ATTEND Internal Medicine
DX: I13.0 Hypertensive heart and chronic kidney disease with heart failure and stage 1 through stage 4 chronic kidney disease, or unspecified chronic kidney disease (principal); I50.33 Acute on chronic diastolic (congestive) heart failure; J18.9 Pneumonia, unspecified organism; N17.9 Acute kidney failure, unspecified; E83.42 Hypomagnesemia; T50.2X5A Adverse effect of carbonic-anhydrase inhibitors, benzothiadiazides and other diuretics, initial encounter; E11.65 Type 2 diabetes mellitus with hyperglycemia; F32.9 Major depressive disorder, single episode, unspecified; R63.4 Abnormal weight loss; R19.5 Other fecal abnormalities; N18.3 Chronic kidney disease, stage 3 (moderate); I25.10 Atherosclerotic heart disease of native coronary artery without angina pectoris; D64.9 Anemia, unspecified; E11.22 Type 2 diabetes mellitus with diabetic chronic kidney disease; E03.9 Hypothyroidism, unspecified; E78.5 Hyperlipidemia, unspecified; K21.9 Gastro-esophageal reflux disease without esophagitis; E66.9 Obesity, unspecified; Z51.81 Encounter for therapeutic drug level monitoring; Z79.899 Other long term (current) drug therapy; Z79.4 Long term (current) use of insulin; Z79.82 Long term (current) use of aspirin; Z95.2 Presence of prosthetic heart valve; Z87.74 Personal history of (corrected) congenital malformations of heart and circulatory system; Z68.31 Body mass index [BMI] 31.0-31.9, adult; Z82.49 Family history of ischemic heart disease and other diseases of the circulatory system

== ENCOUNTER 2018-01-08 11:06 | Inpatient (IN) | payer OTHER ==
[~2018-01-08] VITALS: Ht 157.5 cm; Wt 72.5 kg
[~2018-01-08 11:06] MED LIST changes: -ASCO500T3 PO; -ATRINSX INH; -CARV25TA PO; -CHOL20007 PO; +CRG125 PO; +CRG25 PO; -FERR1TAB23 PO; -LEVO200T6 PO; -MAGN400T6 PO; -ONDA4TAB46 PO; +RMR15 PO; -TRAM-10 PO; -ZLF50 PO
--- NOTE | 2018-01-08 11:49 | EMERGENCY ROOM VISIT NOTE ---
History Report prepared by Destinee: Lidia Mora Under the Supervision of: Dr. William Johnson M.D. First contact with patient: 11:17 Chief Complaint: FALL Stated Complaint: FALL History of Present Illness The patient is an 82 year old female who presents to the Emergency Room with complaints of a resolved fall that occurred about 2 hours prior to arrival. The patient also complains of generalized weakness for the past several months. Per the patient's daughter, starting in April she has had a "taste issue." She notes she was unable to taste, was losing a lot of weight and strength. The patient was on Nasonex nasal spray and the daughter seems to think that has caused her to lose her sense of taste. She was recently diagnosed with UTI and finished Cipro 5 days ago. She states she is still having some burning with urination. The patient got up this morning and was using her walker. She notes the walker was having difficulty moving so her "nudged" it. After this, the patient fell. The patient denies loss of consciousness, neck pain, chest pain, shortness of breath, abdominal pain, back pain, fevers, chills, or melena. The patient has a history of diabetes and her last blood sugar was 241. She also has a history of CHF and valve repair. She takes Aspirin regularly. 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 A total of 10 systems reviewed and were otherwise negative. 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 Nurse's notes were reviewed and I agree with. Family History FH: heart disease MOTHER Hypertension Social History Smoking Status: Never Smoker Drug Use: none Marital Status: Housing Status: lives with significant other Occupation Status: retired Current/Historical Medications Scheduled Ascorbic Acid (Vitamin C), 1 TAB PO QAM Aspirin (Aspirin 81), 81 MG PO DAILY Calcium Carbonate-Vitamin D (Calcium), 1 TAB PO DAILY Carvedilol (Coreg), 12.5 MG PO BID Cholecalciferol (Vitamin D3), 1 TAB PO QAM Ferrous Sulfate (Kp Ferrous Sulfate), 1 TAB PO DAILY Insulin Aspart (Novolog Flexpen), 10 UNITS SQ TIDM Levothyroxine Sodium (Levothyroxine Sodium), 200 MCG PO DAILY Magnesium Oxide (Mag-Ox), 400 MG PO BID Multivitamin (Multivitamin), 1 TAB PO DAILY Ranitidine (Zantac), 150 MG PO DAILY Sertraline (Zoloft), 100 MG PO DAILY Torsemide (Demadex), 20 MG PO BID Scheduled PRN Acetaminophen (Tylenol), 1,000 MG PO Q6 PRN for Pain Tramadol (Ultram), 50 MG PO Q8H PRN for Pain Allergies Coded Allergies: No Known Allergies (Unverified , 01/08/18) Physical Exam Vital Signs Date Time Temp Pulse Resp B/P (MAP) Pulse Ox O2 Delivery O2 Flow Rate FiO2 01/08/18 13:18 59 18 132/73 100 Room Air 01/08/18 12:15 96 Room Air 01/08/18 11:10 36.5 62 18 141/64 96 Room Air Physical Exam General: Chronically-ill appearing older female in no acute distress. Somewhat disheveled. HEENT: Normal cephalic atraumatic. Pupils are equal round and reactive to light. Extraocular movements are intact. Oropharynx is pink with moist mucous membranes. No swelling of the mouth lips or tongue. Neck: Supple with a midline trachea. No meningeal signs or stiffness, no JVD or bruits. No Stridor. Chest: Clear to auscultation bilaterally. No wheezes or rhonchi. No increased work of breathing. Heart: regular rate and rhythm. Abdomen: Soft nontender, nondistended without rebound guarding or rigidity. Extremities: No clubbing or edema. No calf tenderness or assymetry. Bruises on both knees bilaterally. Blood filled blister on right ryder, mild redness around it. Spine/Back. Non tender to palpation. No CVA tenderness Skin: Good turgor without rashes. Neurologic exam: Cranial nerves two through 12 are intact. Motor and sensation are intact and symmetrical throughout. GCS 15. Medical Decision & Procedures ER Provider Diagnostic Interpretation: Radiology results as stated below per my review and radiologist interpretation: CT SCAN OF THE BRAIN WITHOUT IV CONTRAST CLINICAL HISTORY: Fall. Weakness. COMPARISON STUDY: CT of the brain dated 07/07/2017. TECHNIQUE: Unenhanced axial CT scan of the brain is performed from the vertex to the skull base. A dose lowering technique was utilized adhering to the principles of ALARA. CT DOSE: 638.56 mGycm FINDINGS: Brain parenchyma: There is decreased attenuation identified within the right frontal lobe cortex and white matter, which likely represents a chronic infarct. This is new from 07/07/2017. There are age-related involutional changes noting mild subcortical and periventricular microangiopathic change. There is no hemorrhage, mass effect, or evidence of acute territorial ischemia by CT criteria. Gomez-white matter is preserved. No extra-axial fluid collection is seen. Ventricles, sulci, cisterns: Prominent secondary to involutional change. Intracranial vasculature: There is atherosclerotic calcification of the cavernous carotid and vertebral arteries. Calvarium: The skeletal structures are osteopenic. No depressed calvarial fracture is seen. Sinuses and mastoids: The visualized paranasal sinuses are clear. The mastoid air cells are well pneumatized. Orbits: The bony orbits are grossly intact. There are bilateral ocular lens implants. IMPRESSION: 1. There is no hemorrhage, mass effect, or evidence of acute territorial ischemia by CT criteria. 2. There is evidence of a small right frontal infarct, which is chronic in appearance but new from 07/07/2017. This can be further assessed with MRI of the brain if clinically warranted. Electronically signed by: Gerald Perera M.D. 01/08/2018 12:40 PM Dictated Date/Time: 01/08/2018 12:36 PM RIGHT KNEE 2 VIEWS CLINICAL HISTORY: Right knee pain. Trauma. FINDINGS: AP and crosstable lateral views of the right knee are obtained. No prior studies are available for comparison at the time of dictation. The skeletal structures are osteopenic. No fracture is identified. There is mild tricompartmental degenerative joint space narrowing. A small superior patellar enthesophyte is identified. There is no joint effusion. Soft tissue edema is present in the right lower extremity. There is atherosclerotic calcification of the popliteal artery. IMPRESSION: Soft tissue swelling with no radiographic evidence of right knee fracture. Electronically signed by: Gerald Perera M.D. 01/08/2018 1:13 PM Dictated Date/Time: 01/08/2018 1:12 PM L KNEE 1 OR 2 VIEWS ROUTINE CLINICAL HISTORY: 82 years-old Female presenting with eval for trauma, knee pain. TECHNIQUE: Frontal and crosstable lateral views of the left knee were obtained. COMPARISON: Comparison made to radiographs of the right knee performed the same day. FINDINGS: Knee joint congruent. [place] noted at the medial femoral condyle, which may imply prior ligamentous injury. Joint spaces preserved. No acute fracture or malalignment. No advanced degenerative change. Trace knee joint effusion may be present. Atherosclerosis. Diffuse subcutaneous edema suggested. IMPRESSION: No acute osseous injury. Electronically signed by: Nathan Hendrix M.D. 01/08/2018 1:11 PM Dictated Date/Time: 01/08/2018 1:09 PM RIGHT ELBOW 2 VIEWS CLINICAL HISTORY: Trauma. FINDINGS: AP and lateral views of the right elbow are obtained. No prior studies are available for comparison at the time of dictation. The examination is degraded by suboptimal positioning. The skeletal structures are osteopenic. There is no radiographic evidence of fracture. The joint spaces appear preserved. No joint effusion is identified. The overlying soft tissues are normal as imaged. An IV catheter is present in the antecubital fossa. IMPRESSION: There is no radiographic evidence of right elbow fracture. Electronically signed by: Gerald Perera M.D. 01/08/2018 1:12 PM Dictated Date/Time: 01/08/2018 1:10 PM CHEST ONE VIEW PORTABLE HISTORY: Sepsis COMPARISON: Chest 07/26/2017. FINDINGS: Small bilateral pleural effusions and patchy bibasilar densities persist. The heart remains mildly enlarged. Mild interstitial thickening, unchanged. Cardiac valve prosthesis is noted. No pneumothorax. IMPRESSION: No change in the small bilateral pleural effusions and patchy bibasilar densities. Electronically signed by: Bobby Melo M.D. 01/08/2018 1:13 PM Dictated Date/Time: 01/08/2018 1:09 PM Laboratory Results 01/08/18 11:55 Red Blood Count 4.05, Mean Corpuscular Volume 93.6, Mean Corpuscular Hemoglobin 30.6, Mean Corpuscular Hemoglobin Concent 32.7, Mean Platelet Volume 9.2, Neutrophils (%) (Auto) 80.0, Lymphocytes (%) (Auto) 10.4, Monocytes (%) (Auto) 7.7, Eosinophils (%) (Auto) 0.7, Basophils (%) (Auto) 0.3, Neutrophils # (Auto) 8.61, Lymphocytes # (Auto) 1.12, Monocytes # (Auto) 0.83, Eosinophils # (Auto) 0.07, Basophils # (Auto) 0.03 01/08/18 11:55 Test 01/08/18 11:55 01/08/18 12:06 01/08/18 12:10 White Blood Count 10.76 K/uL (4.8-10.8) Red Blood Count 4.05 M/uL (4.2-5.4) Hemoglobin 12.4 g/dL (12.0-16.0) Hematocrit 37.9 % (37-47) Mean Corpuscular Volume 93.6 fL (80-100) Mean Corpuscular Hemoglobin 30.6 pg (25-34) Mean Corpuscular Hemoglobin Concent 32.7 g/dl (32-36) Platelet Count 522 K/uL (130-400) Mean Platelet Volume 9.2 fL (7.4-10.4) Neutrophils (%) (Auto) 80.0 % Lymphocytes (%) (Auto) 10.4 % Monocytes (%) (Auto) 7.7 % Eosinophils (%) (Auto) 0.7 % Basophils (%) (Auto) 0.3 % Neutrophils # (Auto) 8.61 K/uL (1.4-6.5) Lymphocytes # (Auto) 1.12 K/uL (1.2-3.4) Monocytes # (Auto) 0.83 K/uL (0.11-0.59) Eosinophils # (Auto) 0.07 K/uL (0-0.5) Basophils # (Auto) 0.03 K/uL (0-0.2) RDW Standard Deviation 50.0 fL (36.4-46.3) RDW Coefficient of Variation 14.6 % (11.5-14.5) Immature Granulocyte % (Auto) 0.9 % Immature Granulocyte # (Auto) 0.10 K/uL (0.00-0.02) Prothrombin Time 12.7 SECONDS (9.0-12.0) Prothromb Time International Ratio 1.2 (0.9-1.1) Activated Partial Thromboplast Time 25.4 SECONDS (21.0-31.0) Partial Thromboplastin Ratio 1.0 Anion Gap 7.0 mmol/L (3-11) Est Creatinine Clear Calc Drug Dose 30.6 ml/min Estimated GFR () 41.0 Estimated GFR (Non- 35.4 BUN/Creatinine Ratio 18.2 (10-20) Calcium Level 8.3 mg/dl (8.5-10.1) Total Bilirubin 0.6 mg/dl (0.2-1) Aspartate Amino Transf (AST/SGOT) 45 U/L (15-37) Alanine Aminotransferase (ALT/SGPT) 30 U/L (12-78) Alkaline Phosphatase 85 U/L (45-117) Total Creatine Kinase 259 U/L (26-192) Creatine Kinase MB 5.4 ng/ml (0.5-3.6) Creatine Kinase MB Ratio 2.1 (0-3.0) Total Protein 6.1 gm/dl (6.4-8.2) Albumin 2.1 gm/dl (3.4-5.0) Globulin 4.0 gm/dl (2.5-4.0) Albumin/Globulin Ratio 0.5 (0.9-2) Bedside Lactic Acid Venous 1.64 mmol/L (0.90-1.70) Urine Color YELLOW Urine Appearance CLEAR (CLEAR) Urine pH 8.0 (4.5-7.5) Urine Specific [place] 1.007 (1.000-1.030) Urine Protein NEG (NEG) Urine Glucose (UA) NEG (NEG) Urine Ketones NEG (NEG) Urine Occult Blood NEG (NEG) Urine Nitrite NEG (NEG) Urine Bilirubin NEG (NEG) Urine Urobilinogen NEG (NEG) Urine Leukocyte Esterase NEG (NEG) Laboratory studies as stated above per my review. Medications Administered Medications (Trade) Dose Ordered Sig/Ethel Route Start Time Stop Time Status Last Admin Dose Admin Piperacillin Sod/ Tazobactam Sod (Zosyn Iv) 4.5 gm NOW STAT IV 01/08/18 12:50 01/08/18 12:52 DC 01/08/18 13:17 4.5 GM ECG Per My Interpretation Indication: weakness Rate (beats per minute): 63 Rhythm: normal sinus Findings: no acute ischemic change, no ectopy Comparison ECG Date: 07/24/17 Change: no significant change ED Course 1117: Past medical records reviewed. The patient was evaluated in room C1B, and a complete history and physical examination were performed. 1230: The patient has returned from CT scan. She appears comfortable. 1250: Ordered Zosyn Iv 4.5 gm IV. 1300: I spoke with Rochelle GRIFFIN, [facility] Hospitalist. She will evaluate the patient for further management. Medical Decision Differential Diagnosis: weakness, infection, sepsis, diabetic, emergency, trauma , intracranial process. This patient comes in as described above she has had frequent falls. She has had a down word functional decline over the last several months. She has not had a recent UTI does not feel she got better from that as well. She feels diffusely weak and has been falling. This been no focal numbness or weakness to suggest an acute stroke. She has no problems speaking or swallowing. IV access established hydrated normal saline she also has an area on her scratch by her Potentially. She is afebrile here. IV access established blood cultures were obtained as well as urinalysis and culture and blood work. CAT scan of her head shows an old frontal infarct. It is new however in the last 6 months since her last image. It is possible that this could be causing some of her symptoms with a personality change/depression type symptoms. She has nothing to suggest acute coronary syndrome and has a nonischemic EKG. Her troponin is not elevated. Her BUN is elevated and I do think that she is clinically dry. I do think she needs to be admitted for further treatment and evaluation of her frequent falls and dehydration and history of subacute/ chronic stroke that is likely causing some of her symptoms. I am also concerned that she may have infection on the ryder with a cellulitis. I have counseled the [facility] to see her. She was given Zosyn 4.5 g IV. Her lactic acid is not elevated at this point she does not appear to be septic. Head Trauma GCS Score: 15 Medication Reconcilliation Current Medication List: was personally reviewed by me Blood Pressure Screening Patient's blood pressure: Normal blood pressure Consults Time Called: 1255 Consulting Physician: Alanis Silvestre Returned Call: 1300 I spoke with the [facility]ist. She will evaluate the patient for further management. Impression Primary Impression: Weakness Additional Impressions: 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 Frequent falls Cellulitis Scribe Attestation The scribe's documentation has been prepared under my direction and personally reviewed by me in its entirety. I confirm that the note above accurately reflects all work, treatment, procedures, and medical decision making performed by me. Departure Information Dispostion Being Evaluated By Hospitalist Referrals Suzanne Adams M.D. (PCP) Patient Instructions [facility] Health Problem Qualifiers
[2018-01-08 12:09] LABS: BASO % 0.3 %; BASO ABS # 0.03 K/uL (0-0.2); EOS % 0.7 %; EOS ABS # 0.07 K/uL (0-0.5); HEMATOCRIT 37.9 % (37-47); HEMOGLOBIN 12.4 g/dL (12.0-16.0); LYMPH % 10.4 %; LYMPH ABS # 1.12 K/uL (1.2-3.4); MEAN CELL VOLUME 93.6 fL (80-100); MEAN CORPUSCULAR HEMOGLOBIN 30.6 pg (25-34); MEAN CORPUSCULAR HGB CONC 32.7 g/dl (32-36); MEAN PLATELET VOLUME 9.2 fL (7.4-10.4); MONO % 7.7 %; MONO ABS # 0.83 K/uL (0.11-0.59); NEUT ABS # 8.61 K/uL (1.4-6.5); PLATELET COUNT 522 K/uL (130-400); RED CELL DISTRIBUTION WIDTH CV 14.6 % (11.5-14.5); WHITE BLOOD COUNT 10.76 K/uL (4.8-10.8)
[2018-01-08] MEDS ORDERED: LEVO200T6 PO (12:09)
[2018-01-08] MEDS ORDERED: MAGN400T6 PO (12:09)
[2018-01-08] MEDS ORDERED: ATRINSX INH (12:09)
[2018-01-08] MEDS ORDERED: TRAM-10 PO (12:09)
[2018-01-08] MEDS ORDERED: ASCO500T3 PO (12:09)
[2018-01-08] MEDS ORDERED: CHOL20007 PO (12:09)
[2018-01-08 12:19] LABS: INR 1.2 (0.9-1.1); PTT PATIENT 25.4 SECONDS (21.0-31.0)
[2018-01-08 12:32] LABS: ALBUMIN 2.1 gm/dl (3.4-5.0); CALCIUM 8.3 mg/dl (8.5-10.1); CKMB 5.4 ng/ml (0.5-3.6); CREATININE 1.4 mg/dl (0.60-1.20); TOTAL PROTEIN 6.1 gm/dl (6.4-8.2)
--- NOTE | 2018-01-08 12:41 | DIAGNOSTIC IMAGING REPORT ---
CT SCAN OF THE BRAIN WITHOUT IV CONTRAST CLINICAL HISTORY: Fall. Weakness. COMPARISON STUDY: CT of the brain dated 07/07/2017. TECHNIQUE: Unenhanced axial CT scan of the brain is performed from the vertex to the skull base. A dose lowering technique was utilized adhering to the principles of ALARA. CT DOSE: 638.56 mGycm FINDINGS: Brain parenchyma: There is decreased attenuation identified within the right frontal lobe cortex and white matter, which likely represents a chronic infarct. This is new from 07/07/2017. There are age-related involutional changes noting mild subcortical and periventricular microangiopathic change. There is no hemorrhage, mass effect, or evidence of acute territorial ischemia by CT criteria. Gomez-white matter is preserved. No extra-axial fluid collection is seen. Ventricles, sulci, cisterns: Prominent secondary to involutional change. Intracranial vasculature: There is atherosclerotic calcification of the cavernous carotid and vertebral arteries. Calvarium: The skeletal structures are osteopenic. No depressed calvarial fracture is seen. Sinuses and mastoids: The visualized paranasal sinuses are clear. The mastoid air cells are well pneumatized. Orbits: The bony orbits are grossly intact. There are bilateral ocular lens implants. IMPRESSION: 1. There is no hemorrhage, mass effect, or evidence of acute territorial ischemia by CT criteria. 2. There is evidence of a small right frontal infarct, which is chronic in appearance but new from 07/07/2017. This can be further assessed with MRI of the brain if clinically warranted. Electronically signed by: Gerald Perera M.D. 01/08/2018 12:40 PM Dictated Date/Time: 01/08/2018 12:36 PM
[2018-01-08] MEDS ORDERED: MULT-506 PO (12:47)
[2018-01-08] MEDS ORDERED: ASPI-435 PO (12:47)
[2018-01-08] MEDS ORDERED: CARV12.52 PO (12:47)
[2018-01-08] MEDS ORDERED: RANI150T85 PO (12:47)
[2018-01-08] MEDS ORDERED: NVLGI7030 SC (12:47)
[2018-01-08] MEDS ORDERED: SERT-234 PO (12:47)
[2018-01-08] MEDS ORDERED: ACET-1256 PO (12:47)
[2018-01-08] MEDS ORDERED: TORS20TA2 PO (12:47)
[2018-01-08] MEDS ORDERED: FERR1TAB28 PO (12:47)
[2018-01-08] MEDS ORDERED: CALC-51 PO (12:47)
[2018-01-08] MEDS ORDERED: PIPERACILLIN/TAZOBACTAM 4.5 GM/100ML D5W IV STA (12:50)
--- NOTE | 2018-01-08 13:12 | DIAGNOSTIC IMAGING REPORT ---
L KNEE 1 OR 2 VIEWS ROUTINE CLINICAL HISTORY: 82 years-old Female presenting with eval for trauma, knee pain. TECHNIQUE: Frontal and crosstable lateral views of the left knee were obtained. COMPARISON: Comparison made to radiographs of the right knee performed the same day. FINDINGS: Knee joint congruent. [place] noted at the medial femoral condyle, which may imply prior ligamentous injury. Joint spaces preserved. No acute fracture or malalignment. No advanced degenerative change. Trace knee joint effusion may be present. Atherosclerosis. Diffuse subcutaneous edema suggested. IMPRESSION: No acute osseous injury. Electronically signed by: Nathan Hendrix M.D. 01/08/2018 1:11 PM Dictated Date/Time: 01/08/2018 1:09 PM
--- NOTE | 2018-01-08 13:13 | DIAGNOSTIC IMAGING REPORT ---
RIGHT ELBOW 2 VIEWS CLINICAL HISTORY: Trauma. FINDINGS: AP and lateral views of the right elbow are obtained. No prior studies are available for comparison at the time of dictation. The examination is degraded by suboptimal positioning. The skeletal structures are osteopenic. There is no radiographic evidence of fracture. The joint spaces appear preserved. No joint effusion is identified. The overlying soft tissues are normal as imaged. An IV catheter is present in the antecubital fossa. IMPRESSION: There is no radiographic evidence of right elbow fracture. Electronically signed by: Gerald Perera M.D. 01/08/2018 1:12 PM Dictated Date/Time: 01/08/2018 1:10 PM
--- NOTE | 2018-01-08 13:14 | DIAGNOSTIC IMAGING REPORT ---
RIGHT KNEE 2 VIEWS CLINICAL HISTORY: Right knee pain. Trauma. FINDINGS: AP and crosstable lateral views of the right knee are obtained. No prior studies are available for comparison at the time of dictation. The skeletal structures are osteopenic. No fracture is identified. There is mild tricompartmental degenerative joint space narrowing. A small superior patellar enthesophyte is identified. There is no joint effusion. Soft tissue edema is present in the right lower extremity. There is atherosclerotic calcification of the popliteal artery. IMPRESSION: Soft tissue swelling with no radiographic evidence of right knee fracture. Electronically signed by: Gerald Perera M.D. 01/08/2018 1:13 PM Dictated Date/Time: 01/08/2018 1:12 PM
--- NOTE | 2018-01-08 13:14 | DIAGNOSTIC IMAGING REPORT ---
CHEST ONE VIEW PORTABLE HISTORY: Sepsis COMPARISON: Chest 07/26/2017. FINDINGS: Small bilateral pleural effusions and patchy bibasilar densities persist. The heart remains mildly enlarged. Mild interstitial thickening, unchanged. Cardiac valve prosthesis is noted. No pneumothorax. IMPRESSION: No change in the small bilateral pleural effusions and patchy bibasilar densities. Electronically signed by: Bobby Melo M.D. 01/08/2018 1:13 PM Dictated Date/Time: 01/08/2018 1:09 PM
[2018-01-08 14:09] VITALS: BMI 30.6
[2018-01-08 14:41] VITALS: BP 116/70; PULSE 62; TEMP 36.5; O2SAT 99
[2018-01-08] MEDS ORDERED: ONDANSETRON INJ 2 MG/ML 2 ML VIAL IV PRN (14:45)
[2018-01-08] MEDS ORDERED: PHARMACIST DISCHARGE MED REC CONSULT PRN (14:45)
[2018-01-08] MEDS ORDERED: ACETAMINOPHEN 325 MG TAB PO PRN (14:45)
[2018-01-08] MEDS ORDERED: FERR1TAB13 PO (14:57)
[2018-01-08] MEDS ORDERED: NVLGI/PEN SQ (15:06)
[2018-01-08] MEDS ORDERED: GLUCOSE 10 TABS/TUBE PO PRN (15:15)
[2018-01-08] MEDS ORDERED: GLUCOSE 40% GEL 15 GM TUBE PO PRN (15:15)
[2018-01-08] MEDS ORDERED: GLUCAGON FOR INJ 1 MG VIAL SQ PRN (15:15)
[2018-01-08] MEDS ORDERED: CARBOHYDRATES FOR HYPOGLYCEMIA PO PRN (15:15)
[2018-01-08] MEDS ORDERED: DEXTROSE 50% 50 ML SYR IV PRN (15:15)
[2018-01-08] MEDS ORDERED: TORSEMIDE 20 MG TAB PO SCH (15:30)
[2018-01-08] MEDS ORDERED: SODIUM CHLORIDE 0.9% 1000ML 1,000 ML IV SCH (16:00)
--- NOTE | 2018-01-08 16:13 | History and Physical ---
History & Physical Date & Time of Service: Jan 08, 2018 ~ 14:00 Chief Complaint: Fall Primary Care Physician: Suzanne Adams M.D. History of Present Illness Source: patient, family 82-year-old female who presents the ED after a fall. Patient reports that she had woke up this morning and was walking to the bathroom with her walker when she suddenly felt very weak. She reports that her legs felt weak equally. Her tried to help her however bumped her walker in her legs and walker when out from under her. No associated chest pain, shortness of breath, lightheadedness, dizziness, syncopal event. She denies unilateral weakness, numbness, tingling, facial droop, drooling. She has been having some difficulty swallowing her pills recently but denies troubles with food. She was unable to get up off the floor. EMS was then called and patient was brought to the ER for further evaluation. Over the past several months, patient has had increasing feelings of depression and very poor appetite. Patient denies any suicidal or homicidal thoughts. During her admissions in July, her sertraline was decreased and then subsequently changed to Remeron. Remeron was then thought to be causing her taste disturbance. So it was then changed to Lexapro. Lexapro was not helping her depression symptoms then patient was changed back to sertraline 100 mg daily. Patient's Nasonex was discontinued and her taste disturbances improved. Patient was recently treated for a suspected UTI on 12/24. She was given Cipro for 7 days. No urine culture was obtained. Patient reports some increasing dysuria for the past few days. No fevers or chills. About 1 week ago, patient reports her cat jumped up onto her bed and landed on her right leg. She then developed a blister with some surrounding erythema. There has been no drainage. Patient has chronic bilateral lower extremity edema from lymphedema which is unchanged from baseline. In the ED, patient's head CT is showing a chronic however new right frontal infarct. Labs are unremarkable. Patient is hemodynamically stable. Patient was given a dose of IV Zosyn. Past Medical/Surgical History Medical Problems: (1) CHF (congestive heart failure) Permanent Comment: due to diastolic dysfunction + valvular heart disease Status: Chronic (2) Chronic kidney disease (CKD), stage III (moderate) Status: Chronic (3) Coronary artery disease Permanent Comment: 40% LAD 2006 Status: Chronic (4) Depression Status: Chronic (5) Diabetes mellitus, type II Status: Chronic (6) Dyslipidemia Status: Chronic (7) GERD (gastroesophageal reflux disease) Status: Chronic (8) History of adenomatous polyp of colon Status: Chronic (9) History of pleural effusion Permanent Comment: s/p thoracentesis Status: Chronic (10) Hypertension Status: Chronic (11) Hypothyroidism Status: Chronic (12) 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 Status: Chronic (13) Mitral valve regurgitation Status: Chronic (14) Osteoporosis Status: Chronic (15) Venous insufficiency of both lower extremities Status: Chronic Surgical Problems: (1) H/O bilateral oophorectomy Status: Chronic (2) Radial fracture repair Status: Chronic (3) Status post cataract extraction Status: Chronic (4) Status post cholecystectomy Status: Chronic (5) Status post hysterectomy Status: Chronic (6) Status post mitral valve repair Status: Chronic Family History Noncontributory secondary patient's advanced age Social History Smoking Status: Never Smoker Alcohol Use: none Marital Status: Housing status: lives with family Immunizations History of Influenza Vaccine: Yes Influenza Vaccine Date: Apr 08, 2017 History of Tetanus Vaccine?: Yes Tetanus Immunization Date: Dec 14, 2011 History of Pneumococcal: Yes Pneumococcal Date: Mar 31, 2015 Allergies Coded Allergies: No Known Allergies (Unverified , 01/08/18) Home Medications Scheduled Ascorbic Acid (Vitamin C), 1 TAB PO QAM Aspirin (Aspirin 81), 81 MG PO DAILY Calcium Carbonate-Vitamin D (Calcium), 1 TAB PO DAILY Carvedilol (Coreg), 12.5 MG PO BID Cholecalciferol (Vitamin D3), 1 TAB PO QAM Ferrous Sulfate (Kp Ferrous Sulfate), 1 TAB PO DAILY Insulin Aspart (Novolog Flexpen), 10 UNITS SQ TIDM Levothyroxine Sodium (Levothyroxine Sodium), 200 MCG PO DAILY Magnesium Oxide (Mag-Ox), 400 MG PO BID Multivitamin (Multivitamin), 1 TAB PO DAILY Ranitidine (Zantac), 150 MG PO DAILY Sertraline (Zoloft), 100 MG PO DAILY Torsemide (Demadex), 20 MG PO BID Scheduled PRN Acetaminophen (Tylenol), 1,000 MG PO Q6 PRN for Pain Tramadol (Ultram), 50 MG PO Q8H PRN for Pain Review of Systems ROS per HPI, all other systems reviewed and negative Physical Exam Vital Signs Date Time Temp Pulse Resp B/P (MAP) Pulse Ox O2 Delivery O2 Flow Rate FiO2 01/08/18 14:41 36.5 62 20 116/70 99 Room Air 01/08/18 14:30 58 18 109/56 100 01/08/18 13:58 58 18 109/56 100 Room Air 01/08/18 13:18 59 18 132/73 100 Room Air 01/08/18 12:15 96 Room Air 01/08/18 11:10 36.5 62 18 141/64 96 Room Air General Appearance: WD/WN, no apparent distress Head: normocephalic, atraumatic Eyes: normal inspection, EOMI, sclerae normal ENT: hearing grossly normal, + pertinent finding (Mucous membranes dry) Neck: supple, no JVD, trachea midline Respiratory/Chest: lungs clear, normal breath sounds, no respiratory distress Cardiovascular: regular rate, rhythm, normal peripheral pulses, + pertinent finding (+2 edema BLE) Abdomen/GI: normal bowel sounds, non tender, soft, no organomegaly Extremities/Musculoskelatal: normal inspection, no calf tenderness, normal capillary refill Neurologic/Psych: no motor/sensory deficits, alert, oriented x 3, + depressed affect Skin: normal color, warm/dry, + pertinent finding (Dry flaky skin noted to bilateral lower extremities; approximate 2-3 cm blood blister with surrounding erythema noted to the right anterior ryder) Diagnostics Laboratory Results Results Past 24 Hours Test 01/08/18 11:41 01/08/18 11:55 01/08/18 12:06 01/08/18 12:10 Range/Units Creatine Kinase MB Ratio 2.1 0-3.0 White Blood Count 10.76 4.8-10.8 K/uL Red Blood Count 4.05 4.2-5.4 M/uL Hemoglobin 12.4 12.0-16.0 g/dL Hematocrit 37.9 37-47 % Mean Corpuscular Volume 93.6 80-100 fL Mean Corpuscular Hemoglobin 30.6 25-34 pg Mean Corpuscular Hemoglobin Concent 32.7 32-36 g/dl Platelet Count 522 130-400 K/uL Mean Platelet Volume 9.2 7.4-10.4 fL Neutrophils (%) (Auto) 80.0 % Lymphocytes (%) (Auto) 10.4 % Monocytes (%) (Auto) 7.7 % Eosinophils (%) (Auto) 0.7 % Basophils (%) (Auto) 0.3 % Neutrophils # (Auto) 8.61 1.4-6.5 K/uL Lymphocytes # (Auto) 1.12 1.2-3.4 K/uL Monocytes # (Auto) 0.83 0.11-0.59 K/uL Eosinophils # (Auto) 0.07 0-0.5 K/uL Basophils # (Auto) 0.03 0-0.2 K/uL RDW Standard Deviation 50.0 36.4-46.3 fL RDW Coefficient of Variation 14.6 11.5-14.5 % Immature Granulocyte % (Auto) 0.9 % Immature Granulocyte # (Auto) 0.10 0.00-0.02 K/uL Prothrombin Time 12.7 9.0-12.0 SECONDS Prothromb Time International Ratio 1.2 0.9-1.1 Activated Partial Thromboplast Time 25.4 21.0-31.0 SECONDS Partial Thromboplastin Ratio 1.0 Sodium Level 133 136-145 mmol/L Potassium Level 4.0 3.5-5.1 mmol/L Chloride Level 96 98-107 mmol/L Carbon Dioxide Level 30 21-32 mmol/L Anion Gap 7.0 3-11 mmol/L Blood Urea Nitrogen 25 7-18 mg/dl Creatinine 1.40 0.60-1.20 mg/dl Est Creatinine Clear Calc Drug Dose 30.6 ml/min Estimated GFR () 41.0 Estimated GFR (Non- 35.4 BUN/Creatinine Ratio 18.2 10-20 Random Glucose 194 70-99 mg/dl Calcium Level 8.3 8.5-10.1 mg/dl Total Bilirubin 0.6 0.2-1 mg/dl Aspartate Amino Transf (AST/SGOT) 45 15-37 U/L Alanine Aminotransferase (ALT/SGPT) 30 12-78 U/L Alkaline Phosphatase 85 45-117 U/L Total Creatine Kinase 259 26-192 U/L Creatine Kinase MB 5.4 0.5-3.6 ng/ml Total Protein 6.1 6.4-8.2 gm/dl Albumin 2.1 3.4-5.0 gm/dl Globulin 4.0 2.5-4.0 gm/dl Albumin/Globulin Ratio 0.5 0.9-2 Bedside Lactic Acid Venous 1.64 0.90-1.70 mmol/L Urine Color YELLOW Urine Appearance CLEAR CLEAR Urine pH 8.0 4.5-7.5 Urine Specific [place] 1.007 1.000-1.030 Urine Protein NEG NEG Urine Glucose (UA) NEG NEG Urine Ketones NEG NEG Urine Occult Blood NEG NEG Urine Nitrite NEG NEG Urine Bilirubin NEG NEG Urine Urobilinogen NEG NEG Urine Leukocyte Esterase NEG NEG Microbiology Results 01/08/18 Blood Culture, Received Pending 01/08/18 Blood Culture, Received Pending 01/08/18 Urine Culture, Received Pending Diagnostic Radiology RIGHT KNEE X-RAY IMPRESSION: Soft tissue swelling with no radiographic evidence of right knee fracture. LEFT KNEE X-RAY IMPRESSION: No acute osseous injury. HEAD CT IMPRESSION: 1. There is no hemorrhage, mass effect, or evidence of acute territorial ischemia by CT criteria. 2. There is evidence of a small right frontal infarct, which is chronic in appearance but new from 07/07/2017. This can be further assessed with MRI of the brain if clinically warranted. RIGHT ELBOW X-RAY IMPRESSION: There is no radiographic evidence of right elbow fracture. CHEST X-RAY IMPRESSION: No change in the small bilateral pleural effusions and patchy bibasilar densities. Impression Assessment and Plan FALL, GENERALIZED WEAKNESS LIKELY MULTIFACTORIAL DUE TO RIGHT FRONTAL INFARCT, RLE CELLULITIS, POSSIBLE UTI, DEPRESSION -Admit to telemetry -Patient presenting from home after she experienced what seems to be a mechanical fall -Patient also has had a very poor appetite over the past several months due to decreased taste which has been improving since discontinuation of Nasonex; depression likely contributing to poor appetite as well RIGHT FRONTAL INFARCT -In the ED, head CT showing a chronic right frontal infarct which is new from head CT dated from 07/2017 -Brain MRI, carotid Dopplers, echo -Continue aspirin -Statin recently discontinued as an outpatient secondary to myalgias -PT/OT, speech evaluations -Neuro consult RIGHT LOWER EXTREMITY CELLULITIS POSSIBLE UTI -Patient has a small blister with surrounding erythema on her right anterior ryder that she reports started after her cat jumped on her leg -no drainage or open areas to culture at this time -Wound care consult -Treated for a suspected UTI on 12/24 with Cipro 7 days however urine culture was not sent -S/P Zosyn in the ED; will continue with Unasyn for now to cover cat scratch cellulitis and possible UTI (several prior culture results reviewed and Unasyn is sensitive) -Gentle IVF 1 L DEPRESSION -Patient has had multiple depression medication adjustments in the past several months -Currently taking sertraline 100 mg daily -Mental health consult, patient agreeable DM TYPE II -Hgb A1c 9.2 11/2017 -Patient is prescribed Lantus however reports she has not been taking it -Place patient on NovoLog and Lantus as per protocol while hospitalized HYPOTHYROIDISM -Continue levothyroxine CHRONIC DIASTOLIC CHF LYMPHEDEMA -Patient appears to be mildly on the dry side secondary to poor p.o. intake -will give 1 L IV fluid gently and hold torsemide for now but likely can restart tomorrow CKD STAGE III - baseline creat runs in the low 1 - creat noted to be 1.2 today - continue to monitor, avoid nephrotoxic agents when able CAD -Stable, no reports chest pain -Continue aspirin and beta-opal HYPERTENSION -BP controlled, continue carvedilol DVT PROPHYLAXIS -SQ heparin CODE STATUS -Patient is a full code as per my discussion with her. DISPOSITION -In my clinical judgment this beneficiary meets acute admission criteria, established by [facility], that includes being hospitalized through two midnights. Attending Note Patient is an 82 yr female with PMH of DM II, Hypothyroidism, CKD, Chronic anemia, HTN, diastolic CHF, Lymphedema, depression and other problems presents with history of generalized weakness, mechanical fall, loss of appetite, weight loss and has been depressed since at least last 2 yrs. Also noted to have some dysphagia as per daughter. Patient has completed antibiotic course for UTI recently but continues to have dysuria. Denies hematuria. Patient also developed a blister on her leg secondary to cat scratch. Patient's daughter stated that patient has been having multiple falls since Jul. CT head showed chronic right frontal infarct. Patient had multiple UTI's in the past. No signs of sepsis, UA not suggestive of UTI. Patient is on Aspirin at home and has h/o stain Intolerance 2/2 myopathy. On exam patient has poor eye contact, +Pallor, no distress, S1 S2, +Murmur, chronic lymphedema, +blister on RLE with mild erythema. Decreased breath sounds, CTA, grossly no focal deficits on exam. Generalized weakness H/O Multiple Falls CT head: chronic Right frontal Infarct Agree with CVA work up as above Continue Aspirin May need to add Plavix. Neurology consulted for Input H/O Statin induced Myopathy check TSH and Vit D levels Consider starting low dose Pravastatin/Fluvastatin/Rosuvastatin or a non statin meds if LDL > 70 PT/OT RLE cellulitis Recent UTI Agree with Unasyn No signs of sepsis Depression Weight loss and Loss of appetite likely 2/2 depression Up to date with screening as per daughter Psych consulted for medication adjustment I personally reviewed the record. Patient is interviewed and examined at bedside. Patient's care is coordinated with Rochelle Han [employer]OCI[employer] PROF[employer] OF MANAGEMENT. Please refer to the documentation above for details of patient's presentation and for discussion of other issues. Advanced Directives Existing Living Will: Yes Existing Power of Back Sewer: Yes (EDY TENORIO ) Resuscitation Status VTE Prophylaxis Will order VTE Prophylaxis: Yes
--- NOTE | 2018-01-08 16:59 | DIAGNOSTIC IMAGING REPORT ---
Brain MRA HISTORY: Weakness. Stroke - Attention to [place] TECHNIQUE: 3-D [id number] MRA of the brain was performed without contrast. COMPARISON STUDY: Head CT 01/08/2018. FINDINGS: Visualized intracranial internal carotid arteries, distal vertebral arteries, and basilar artery are widely patent. There is no significant stenosis, occlusion, or aneurysm seen within the bilateral ACAs, MCAs, or flue cleaner. A hypoplastic left P1 segment. This is likely developmental. IMPRESSION: No significant stenosis, occlusion, or aneurysm within the [place]. Electronically signed by: Bobby Melo M.D. 01/08/2018 4:57 PM Dictated Date/Time: 01/08/2018 4:53 PM
[2018-01-08] MEDS ORDERED: GADAVIST IV PRN (17:15)
--- NOTE | 2018-01-08 17:28 | DIAGNOSTIC IMAGING REPORT ---
BRAIN COMBO CLINICAL HISTORY: Stroke mental status change COMPARISON STUDY: No previous studies for comparison. TECHNIQUE: Utilizing a 1.5 Shana magnet and dedicated coil, multiplanar, multiecho imaging of the brain was performed pre and postcontrast administration. IV administration of 8 mL of Gadavist contrast was uneventful. FINDINGS: Minimal increase in diffusion signal is a right middle cerebral arterial distribution. This is also identified in the T2 images. This would indicate a subacute infarct. Findings of generalized atrophy. Moderate chronic small vessel change throughout. Moderate cerebellar atrophy. Of the right paraventricular region. IMPRESSION: 1. Subacute infarct right paraventricular region. 2. This is superimposed upon considerable chronic small vessel change as well as moderate cerebellar as well as cerebral atrophy. The above report was generated using voice recognition software. It may contain grammatical, syntax or spelling errors. Electronically signed by: Vj Rinaldi M.D. 01/08/2018 5:26 PM Dictated Date/Time: 01/08/2018 5:24 PM
--- NOTE | 2018-01-08 18:14 | DIAGNOSTIC IMAGING REPORT ---
CAROTID DOPPLER NECK ART HISTORY: Mental status change Stroke COMPARISON: None. TECHNIQUE: Real-time, grayscale, and color Doppler sonography of the carotid arteries was performed. Imaging reviewed in the transverse and longitudinal planes. All measurements were calculated based on NASCET criteria. FINDINGS: Antegrade flow is seen in the bilateral vertebral arteries. The brachial pressures are hemodynamically similar. Moderate plaque bilaterally The peak systolic velocity within the right ICA is 82. The right systolic ratio is 1.0. The peak systolic velocity within the left ICA is 91. The left systolic ratio is 1.1. IMPRESSION: No hemodynamically significant stenosis seen within the carotid arteries. Moderate plaque formation bilaterally The above report was generated using voice recognition software. It may contain grammatical, syntax or spelling errors. Electronically signed by: Vj Rinaldi M.D. 01/08/2018 6:13 PM Dictated Date/Time: 01/08/2018 6:12 PM
[2018-01-08] MEDS: INSULIN ASPART 100 UNITS/ML 3 ML PEN SC SCH ×2 (18:18→20:11)
--- NOTE | 2018-01-08 19:45 | NEUROLOGY CONSULTATION ---
DATE OF CONSULTATION: 01/08/2018 REASON FOR CONSULTATION: Weakness. HISTORY OF PRESENT ILLNESS: The patient is an 82-year-old right-handed female. She woke up this morning, was walking to the bedroom with a walker. She suddenly felt weak bilaterally. tried to help her, but bumped a walker in her legs and she fell, striking her knees. She denies any lightheadedness. There are no other accompanying symptoms when this occurs such as diplopia, dysarthria, dysphagia, vertigo, unilateral weakness or numbness. She has had some dysphagia for solids rather than liquids. No difficulty with ptosis, diplopia. Denies any numbness, tingling. Denies any spine pain. She has some urinary urgency which she attributes to diuretics. She had been on statins until several months ago. Discontinuing the statins did not help with her lower extremity pain or her strength. She indicates she has selective difficulty with going up and down stairs, getting out of chairs, but no difficulty with proximal upper extremity strength. She has had multiple UTIs over the last 1 year. Her daughter reports that she has gradually become weak since 04/2017. She was using a cane at that time, but changed to using a walker in July. She has chronic bilateral lower extremity edema from lymphedema which is unchanged. She has lost approximately 50 pounds over the aforementioned period of time. PAST MEDICAL HISTORY: Congestive heart failure, chronic kidney disease, coronary artery disease, depression, diabetes, dyslipidemia, reflux, history of pleural effusion, hypertension, hypothyroidism, ischemic mitral valve regurge, osteoporosis, venous insufficiency, status post bilateral oophorectomy, radial fracture, cataract extraction, cholecystectomy, hysterectomy, mitral valve repair. There is no history of cancer. SOCIAL HISTORY: Nonsmoker, nondrinker. She lives with her . HOME MEDICATIONS: Vitamin C, aspirin, calcium, Coreg, vitamin D3, iron, NovoLog, levothyroxine, Mag-Ox, multivitamins, Zantac, Zoloft, and Demadex. Her antidepressant has been changed multiple times having been started, I believe in July when she was here for a urinary tract infection, started by psychiatry. Her daughter does admit that she has significant depressive symptoms. Her CT of the head shows what appears to be a right frontal infarct, but does not appear to be acute, but was not present on the CT of her head from July. REVIEW OF SYSTEMS: No chest pain, palpitations, shortness of breath. She did have a sense of loss of sense of smell and taste starting in 04/2017. IMAGING: Head CT: As above. Chest x-ray: Small bilateral pleural effusions and patchy bibasilar infiltrates. EKG: Junctional rhythm. When compared to 2018, junctional rhythm has replaced sinus. LABORATORY DATA: White count, H and H, and platelet count are normal. PT is mildly elevated at 12.7, PTT 25.4. Chemistry profile: Sodium 133, potassium 4.0, glucose 194, AST 45, ALT 30. CK 259, MB 5.4. Urinalysis: Negative. PHYSICAL EXAMINATION: GENERAL: The patient is awake and alert, an excellent historian. She has a very flat affect and appears sad. Her spontaneous speech and language are normal. She is very pale. VITAL SIGNS: 36.5, 62, 20, 116/70, 99%. SKIN: There is edema with brawny induration in the lower extremities, which appears to have been somewhat decompressed. HEENT: Her pupils are equal and reactive. The optic nerves are difficult to visualize. There are normal carlin, motility, facial symmetry. Normal eye closure. No neck flexor, fatigue. No nasality of speech. Tongue is midline and fully strong. Uvula elevates symmetrically. NEUROLOGIC: Motor: Normal bulk and tone. I do not know if there is atrophy of the distal lower extremity as it is likely obscured by edema. Strength appears mildly diffusely weak, but no proximal versus distal gradient. Reflexes: Ankle jerks are present. Reflexes are mildly diffusely brisk, but there is no clonus and toes are downgoing. [id number] is normal. [id number] is limited by pain. Toe tapping is symmetric. Sensory examination: Vibration is present at the ankles. There is probably at mid calf level to temperature. IMPRESSION: 1. Gait dysfunction likely polyfactorial, possibly contributed by what appears to be a right frontal infarct. Plan: Agree with a new MRI brain with contrast if creatinine supports its use. Further workup for stroke depending on the results of the aforementioned and likely to include carotid ultrasound, echocardiography, telemetric monitoring. At present, continue aspirin. 2. The patient is mildly hyponatremic, possibly from her diuretic and this may be contributing to weakness. 3. Neuropathy is likely contributing to gait dysfunction. 4. There is a mild elevation of CK, but this is probably related to a fall. I would recommend rechecking. 5. At some point, it may be appropriate to do a nerve conduction EMG to exclude a myopathic process, although I think would be a technically difficult study due to her edema. 6. Finally, I suspect inactivity related to depression and illness is making her have some disuse related weakness. Physical therapy consultation is appropriate. MARSHA
[2018-01-08 19:49] VITALS: BP 110/67; PULSE 63; TEMP 36.5; O2SAT 100
[2018-01-08] MEDS: MAGNESIUM OXIDE 400 MG TAB PO SCH (19:52)
[2018-01-08] MEDS: CARVEDILOL 12.5 MG TAB PO SCH (19:52)
[2018-01-08] MEDS: AMPICILLIN/SULBACTAM SOD INJ 3,000 MG in SODIUM CHLORIDE 0.9% 100ML 100 ML IV SCH (20:01)
[2018-01-08] MEDS: HEPARIN SOD 5000 UNIT/0.5 ML CARP SQ SCH (20:12)
[2018-01-08] MEDS: INSULIN GLARGINE SOLOSTAR 100 UNITS/ML 3 ML PEN SC SCH (20:12)
[2018-01-08 23:36] VITALS: BP 107/65; PULSE 58; TEMP 36.5; O2SAT 98
[2018-01-09] VITALS (7 sets, daily range): BP systolic 115–146; BP diastolic 64–74; PULSE 60–80; TEMP 36.4–36.6; O2SAT 98–100; BMI 29.2
[2018-01-09] MEDS: LEVOTHYROXINE 200 MCG TAB PO SCH (06:05)
[2018-01-09] MEDS: HEPARIN SOD 5000 UNIT/0.5 ML CARP SQ SCH ×3 (06:06→20:44)
[2018-01-09] MEDS: TORSEMIDE 20 MG TAB PO SCH ×2 (06:08→13:20)
[2018-01-09 06:21] LABS: BASO % 0.4 %; BASO ABS # 0.04 K/uL (0-0.2); EOS % 1.3 %; EOS ABS # 0.14 K/uL (0-0.5); HEMATOCRIT 31.9 % (37-47); HEMOGLOBIN 10.3 g/dL (12.0-16.0); IG# 0.08 K/uL (0.00-0.02); LYMPH ABS # 1.25 K/uL (1.2-3.4); MEAN CELL VOLUME 93.8 fL (80-100); MEAN CORPUSCULAR HEMOGLOBIN 30.3 pg (25-34); MEAN CORPUSCULAR HGB CONC 32.3 g/dl (32-36); MEAN PLATELET VOLUME 9.4 fL (7.4-10.4); MONO % 8.8 %; MONO ABS # 0.91 K/uL (0.11-0.59); NEUT % 76.7 %; NEUT ABS # 7.97 K/uL (1.4-6.5); PLATELET COUNT 416 K/uL (130-400); RED CELL DISTRIBUTION WIDTH CV 14.9 % (11.5-14.5); WHITE BLOOD COUNT 10.39 K/uL (4.8-10.8)
[2018-01-09 06:48] LABS: CALCIUM 7.9 mg/dl (8.5-10.1); CREATININE 1.4 mg/dl (0.60-1.20); POTASSIUM 3.9 mmol/L (3.5-5.1)
[2018-01-09 06:52] LABS: HEMOGLOBIN A1C 9.9 % (4.5-5.6)
[2018-01-09] MEDS: CARVEDILOL 12.5 MG TAB PO SCH ×2 (08:14→20:29)
[2018-01-09] MEDS: MAGNESIUM OXIDE 400 MG TAB PO SCH ×2 (08:14→20:29)
[2018-01-09] MEDS: CLOPIDOGREL BISULFATE 75 MG TAB PO SCH (08:14)
[2018-01-09] MEDS: CHOLECALCIFEROL 1000 INTER.UNIT TAB PO SCH (08:15)
[2018-01-09] MEDS: MULTIVITAMIN TAB PO SCH (08:15)
[2018-01-09] MEDS: ASPIRIN 81 MG ECTAB PO SCH (08:15)
[2018-01-09] MEDS: RANITIDINE HCL 150 MG TAB PO SCH (08:15)
[2018-01-09] MEDS: CALCIUM 600MG + VIT D 400 IU TAB PO SCH (08:15)
[2018-01-09] MEDS: FERROUS SULFATE 325 MG TAB PO SCH (08:15)
[2018-01-09] MEDS: ASCORBIC ACID 500 MG TAB PO SCH (08:16)
[2018-01-09] MEDS: INSULIN ASPART 100 UNITS/ML 3 ML PEN SC SCH ×4 (08:17→20:29)
[2018-01-09] MEDS: INSULIN GLARGINE SOLOSTAR 100 UNITS/ML 3 ML PEN SC SCH ×2 (08:18→20:43)
[2018-01-09] MEDS: AMPICILLIN/SULBACTAM SOD INJ 3,000 MG in SODIUM CHLORIDE 0.9% 100ML 100 ML IV SCH ×2 (08:26→20:44)
[2018-01-09] MEDS ORDERED: SERTRALINE HCL 100 MG TAB PO SCH (09:00)
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
[2018-01-09] MEDS ORDERED: VENLAFAXINE HCL XR 37.5 MG CAPXR PO STA (12:35)
--- NOTE | 2018-01-09 13:30 | ECHOCARDIOGRAM REPORT ---
*NOTICE TO RECEIVING REPUBLICAN AGENCY This information is strictly Confidential and protected under [place] law. [place] law prohibits you from making any further disclosure of this information unless further disclosure is expressly permitted by the written consent of the person to whom it pertains or is authorized by law. A general authorization for the release of medical or other information is not sufficient for this purpose. Hospital accepts no responsibility if the information is made available to any other person, INCLUDING THE PATIENT. Interpretation Summary * Name: REGINE ALMENDAREZ Study Date: 01/09/2018 08:43 AM BP: 115/67 mmHg * Patient Location: C.2T\S\S236\S\1 HR: 60 * : 1935 (M/d/yyyy) Gender: Female Height: 62 in * Age: 82 yrs Ethnicity: CA Weight: 167 lb * Ordering Physician: Rochelle Han * Referring Physician: Self, Referred * Performed By: Tania Dumont RDCS * * Reason For Study: CVA * BSA: 1.8 m2 * The study was technically adequate. * Compared to prior study, there is no significant change. * -- Conclusions -- * Ejection Fraction = 65-70%. * There is mild concentric left ventricular hypertrophy. * Evidence of mitral valve repair and annuloplasty ring. * The anterior leaflet is thickened and mobile while the posterior leaflet is calcified with severely reduced mobility. * There is mild mitral stenosis. * Significant mitral regurgitation is absent. * There is mild tricuspid regurgitation. * The estimated systolic pulmonary arterial pressure is 45 mmHg. Procedure Details * A complete two-dimensional transthoracic echocardiogram was performed (2D, M-mode, Doppler and color flow Doppler). Left Ventricle * The left ventricle is normal in size. * There is mild concentric left ventricular hypertrophy. * Ejection Fraction = 65-70%. * Left ventricular systolic function is normal. * No regional wall motion abnormalities noted. Right Ventricle * The right ventricle is normal size. * The right ventricular systolic function is normal as assessed by tricuspid annular plane systolic excursion (TAPSE) (normal >1.5 cm). Atria * The left atrium is moderately dilated. * Right atrial size is normal. * There is no evidence of atrial septal defect, but resolution does not allow assessment for a patent foramen ovale. Mitral Valve * The mitral valve leaflets appear thickened, but open well. * The anterior leaflet is thickened and mobile while the posterior leaflet is calcified with severely reduced mobility. * The mitral valve chordae are thickened and/or calcified. * There is mild mitral stenosis. * Significant mitral regurgitation is absent. * Evidence of mitral valve repair and annuloplasty ring. Tricuspid Valve * The tricuspid valve is normal. * There is no tricuspid stenosis. * There is mild tricuspid regurgitation. * The estimated systolic pulmonary arterial pressure is 45 mmHg. Aortic Valve * The aortic valve is trileaflet. * Aortic stenosis is absent. * Mild aortic regurgitation. Pulmonic Valve * The pulmonary valve is not well seen, but the Doppler examination is normal without significant regurgitation or stenosis. Great Vessels * The aortic root and proximal ascending aorta are normal sized. Pericardium/Pleural * There is no pericardial effusion. Great Vessels * Normal inferior vena cava diameter and respiratory variation suggests normal central venous pressure. Left Ventricular Diastolic Function * Diastolic dysfunction, Grade II (pseudonormalization pattern). MMode 2D Measurements and Calculations IVSd 0.77 cm LVIDd 3.1 cm LVIDs 2.0 cm LVPWd 0.96 cm IVS/LVPW 0.80 FS 34.7 % EDV(Teich) 37.9 ml ESV(Teich) 13.1 ml EF(Teich) 65.4 % EDV(cubed) 29.7 ml ESV(cubed) 8.3 ml EF(cubed) 72.2 % LV mass(C)d 69.7 grams LV mass(C)dI 39.4 grams/m\S\2 SV(Teich) 24.8 ml SI(Teich) 14.0 ml/m\S\2 SV(cubed) 21.5 ml SI(cubed) 12.1 ml/m\S\2 Ao root diam 3.5 cm Ao root area 9.5 cm\S\2 ACS 1.8 cm asc Aorta Diam 3.4 cm LVAd ap4 30.9 cm\S\2 LVLd ap4 8.2 cm EDV(MOD-sp4) 94.0 ml EDV(sp4-el) 98.7 ml LVAs ap4 17.1 cm\S\2 LVLs ap4 6.6 cm ESV(MOD-sp4) 35.8 ml ESV(sp4-el) 37.5 ml EF(MOD-sp4) 62.0 % EF(sp4-el) 62.0 % LVAd ap2 26.8 cm\S\2 LVLd ap2 8.3 cm EDV(MOD-sp2) 71.4 ml EDV(sp2-el) 74.0 ml LVAs ap2 15.3 cm\S\2 LVLs ap2 6.2 cm ESV(MOD-sp2) 30.8 ml ESV(sp2-el) 32.1 ml EF(MOD-sp2) 56.8 % EF(sp2-el) 56.7 % LVLd %diff 0.48 % EDV(MOD-bp) 82.2 ml LVLs %diff -6.53 % ESV(MOD-bp) 34.1 ml EF(MOD-bp) 58.5 % SV(MOD-sp4) 58.3 ml SI(MOD-sp4) 32.9 ml/m\S\2 SV(MOD-sp2) 40.6 ml SI(MOD-sp2) 22.9 ml/m\S\2 SV(MOD-bp) 48.0 ml SI(MOD-bp) 27.1 ml/m\S\2 SV(sp4-el) 61.1 ml SI(sp4-el) 34.5 ml/m\S\2 SV(sp2-el) 42.0 ml SI(sp2-el) 23.7 ml/m\S\2 Doppler Measurements and Calculations MV E max jacqui 140.2 cm/sec MV A max jacqui 109.1 cm/sec MV E/A 1.3 MV V2 max 141.6 cm/sec MV max PG 8.0 mmHg MV V2 mean 90.0 cm/sec MV mean PG 3.7 mmHg MV V2 VTI 48.5 cm MV dec time 0.42 sec Ao V2 max 98.9 cm/sec Ao max PG 3.9 mmHg Ao max PG (full) 0.22 mmHg LV V1 max PG 3.7 mmHg LV V1 max 96.0 cm/sec PA V2 max 103.2 cm/sec PA max PG 4.3 mmHg PA acc slope 416.1 cm/sec\S\2 PA acc time 0.17 sec TR max jacqui 253.2 cm/sec PA pr(Accel) 2.9 mmHg
--- NOTE | 2018-01-09 14:23 | Neurology Progress Notes ---
Neurology Progress Note Date of Service Jan 09, 2018. Juliocesar Easton is an 82 year old right handed female who has a PMH-CHF ,DM II, hypothyroid, GERD, DL, depression, CKD III, venous insuff LE. She was walking to the bathroom with her walker and she suddenly couldn't hold on her legs got weak and she fell. Her called 911, She has had some dysphagia for solids not liquids. She has had ongoing LE pain her statins were changed and then stopped. She has had alot of problems with stairs and has been having multiple UTI's over the past year. she has also lost around 50 pounds over the past year. She states she was out of bed with PT today and was able to ambulate with her walker. denies CP, SOB, abdominal pain, N, V, headache, vision changes, increased bowel or bladder symptoms. Objective Date Time Temp Pulse Resp B/P (MAP) Pulse Ox O2 Delivery O2 Flow Rate FiO2 01/09/18 12:03 36.6 64 18 117/64 (81) 100 Room Air 01/09/18 09:44 Room Air 01/09/18 07:39 36.6 60 18 129/73 (91) 98 Room Air 01/09/18 03:32 36.5 60 16 115/67 (83) 99 01/08/18 23:36 36.5 58 16 107/65 (79) 98 Room Air 01/08/18 20:00 Room Air 01/08/18 19:49 36.5 63 16 110/67 (81) 100 Room Air 01/08/18 16:00 Room Air 01/08/18 14:41 36.5 62 20 116/70 99 Room Air 01/08/18 14:30 58 18 109/56 100 Last 24 Hours Test 01/08/18 18:01 01/08/18 20:03 01/09/18 06:00 01/09/18 07:38 Bedside Glucose 306 mg/dl 308 mg/dl 168 mg/dl White Blood Count 10.39 K/uL Red Blood Count 3.40 M/uL Hemoglobin 10.3 g/dL Hematocrit 31.9 % Mean Corpuscular Volume 93.8 fL Mean Corpuscular Hemoglobin 30.3 pg Mean Corpuscular Hemoglobin Concent 32.3 g/dl Platelet Count 416 K/uL Mean Platelet Volume 9.4 fL Neutrophils (%) (Auto) 76.7 % Lymphocytes (%) (Auto) 12.0 % Monocytes (%) (Auto) 8.8 % Eosinophils (%) (Auto) 1.3 % Basophils (%) (Auto) 0.4 % Neutrophils # (Auto) 7.97 K/uL Lymphocytes # (Auto) 1.25 K/uL Monocytes # (Auto) 0.91 K/uL Eosinophils # (Auto) 0.14 K/uL Basophils # (Auto) 0.04 K/uL RDW Standard Deviation 51.0 fL RDW Coefficient of Variation 14.9 % Immature Granulocyte % (Auto) 0.8 % Immature Granulocyte # (Auto) 0.08 K/uL Sodium Level 138 mmol/L Potassium Level 3.9 mmol/L Chloride Level 101 mmol/L Carbon Dioxide Level 32 mmol/L Anion Gap 5.0 mmol/L Blood Urea Nitrogen 24 mg/dl Creatinine 1.40 mg/dl Est Creatinine Clear Calc Drug Dose 29.9 ml/min Estimated GFR () 41.0 Estimated GFR (Non- 35.4 BUN/Creatinine Ratio 17.0 Random Glucose 160 mg/dl Calcium Level 7.9 mg/dl Triglycerides Level 67 mg/dl Cholesterol Level 67 mg/dl HDL Cholesterol 30 mg/dl LDL Cholesterol, Calculated 24 mg/dl VLDL Cholesterol, Calculated 13 mg/dl Cholesterol/HDL Ratio 2.2 25-Hydroxy Vitamin D Total 36.8 ng/ml Thyroid Stimulating Hormone (TSH) 2.280 uIu/ml Test 01/09/18 11:49 Bedside Glucose 189 mg/dl Imaging: MRI brain- Subacute infarct right paraventricular region. This is superimposed upon considerable chronic small vessel change as well as moderate cerebellar as well as cerebral atrophy. TTE- Ejection Fraction = 65-70%. * There is mild concentric left ventricular hypertrophy. * Evidence of mitral valve repair and annuloplasty ring. * The anterior leaflet is thickened and mobile while the posterior leaflet is calcified with severely reduced mobility. * There is mild mitral stenosis. * Significant mitral regurgitation is absent. * There is mild tricuspid regurgitation. * The estimated systolic pulmonary arterial pressure is 45 mmHg. 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 5/5, hip flex minimally against gravity and resistance, plantar flex ext 5/5 severe LE venous insufficiency tender with palpation, bruising of knees vibration intact decrease sensation to mid ryder to vibration Current Inpatient Medications Medications (Trade) Dose Ordered Sig/Ethel Route Start Time Stop Time Status Last Admin Dose Admin Heparin Sodium (Porcine) (Heparin Sq 5000 Unit/0.5ml) 5,000 unit Q8 SQ 01/08/18 22:00 02/07/18 21:59 01/09/18 13:21 5,000 UNIT Acetaminophen (Tylenol Tab) 650 mg Q4H PRN PO 01/08/18 14:45 02/07/18 14:44 Ondansetron HCl (Zofran Inj) 4 mg Q6H PRN IV 01/08/18 14:45 02/07/18 14:44 Miscellaneous Information (Pharmacist Discharge Med Rec Consult) 1 ea UD PRN N/A 01/08/18 14:45 02/07/18 14:44 Ampicillin Sodium/ Sulbactam Sodium 3000 mg/Sodium Chloride 108 ml @ 200 mls/hr Q12H IV 01/08/18 21:00 01/18/18 20:59 01/09/18 08:26 200 MLS/HR Insulin Glargine (Lantus Solostar Pen) 5 units Q12 SC 01/08/18 21:00 02/07/18 20:59 01/09/18 08:18 5 UNITS Insulin Aspart (novoLOG ASPART) SLIDING SCALE If C... ACHS SC 01/08/18 16:15 02/07/18 16:14 01/09/18 12:05 8 UNITS Glucose (Glucose 40% Gel) 15-30 GRAMS 15 GRAMS... UD PRN PO 01/08/18 15:15 02/07/18 15:14 Glucose (Glucose Chew Tab) 4-8 Tablets 4 Tabl... UD PRN PO 01/08/18 15:15 02/07/18 15:14 Dextrose (Dextrose 50% 50ML Syringe) 25-50ML 25ML FOR ... UD PRN IV 01/08/18 15:15 02/07/18 15:14 Glucagon (Glucagon Inj) 1 mg UD PRN SQ 01/08/18 15:15 02/07/18 15:14 Carbohydrates (Carbohydrates For Hypoglycemia) 15-30 GRAMS 15 grams if BSG 54-69... UD PRN PO 01/08/18 15:15 02/07/18 15:14 Ascorbic Acid (Vitamin C Tab) 500 mg QAM PO 01/09/18 09:00 02/08/18 08:59 01/09/18 08:16 500 MG Aspirin (Ecotrin Tab) 81 mg DAILY PO 01/09/18 09:00 02/08/18 08:59 01/09/18 08:15 81 MG Carvedilol (Coreg Tab) 12.5 mg BID PO 01/08/18 21:00 02/07/18 20:59 01/09/18 08:14 12.5 MG Levothyroxine Sodium (Synthroid Tab) 200 mcg DAILYBB PO 01/09/18 06:00 02/08/18 05:59 01/09/18 06:05 200 MCG Magnesium Oxide (Mag-Ox Tab) 400 mg BID PO 01/08/18 21:00 02/07/18 20:59 01/09/18 08:14 400 MG Multivitamins (Multivitamin Tab) 1 tab DAILY PO 01/09/18 09:00 02/08/18 08:59 01/09/18 08:15 1 TAB Ranitidine HCl (zANTac TAB) 150 mg DAILY PO 01/09/18 09:00 02/08/18 08:59 01/09/18 08:15 150 MG Tramadol HCl (Ultram Tab) 50 mg Q8H PRN PO 01/08/18 15:15 02/07/18 15:14 Calcium/Vitamin D (Caltrate Plus Tab) 1 tab DAILY PO 01/09/18 09:00 02/08/18 08:59 01/09/18 08:15 1 TAB Cholecalciferol (Vitamin D Tab) 2,000 inter.unit QAM PO 01/09/18 09:00 02/08/18 08:59 01/09/18 08:15 2,000 INTER.UNIT Ferrous Sulfate (Feosol Tab) 325 mg DAILY PO 01/09/18 09:00 02/08/18 08:59 01/09/18 08:15 325 MG Torsemide (Demadex Tab) 20 mg [id number] PO 01/09/18 07:00 02/08/18 06:59 01/09/18 13:20 20 MG Gadobutrol (Gadavist) 7.5 mmol UD PRN IV 01/08/18 17:15 01/12/18 17:14 Clopidogrel Bisulfate (plAVix TAB) 75 mg QAM PO 01/09/18 09:00 02/08/18 08:59 01/09/18 08:14 75 MG Venlafaxine HCl (effeXOR EXTENDED REL CAP) 37.5 mg QAM PO 01/10/18 09:00 02/09/18 08:59 Impression 82 year old female with extensive PMH- acute subacute right paraventricular stroke Plan 1. MRI with right acute subacute stroke 2. carotid doppler - no significant stenosis 3. optimize DL, DM, HTN- LDL <70 4. PT/OT speech discharge needs 5. psych consulted and adjusting medication- SSRI-depression 6. may need physical therapy prior to return home and safety nursing check 7. EMG may benefit 8. wound management with unhealing open area on right leg 9. TTE- NO ASD 10. continue aspirin 81 mg and plavix 75 mg x 3 months then stop aspirin 81 mg and continue plavix 75 mg for a lifetime follow up 2-3 weeks after discharge from hospital or rehab neurology Shi Max MD or Shi Ramsey PAC schedule. I have seen and discussed above patient with Dr Shi Max, neurology Pt with gait dysfunction, polyfactorial (stroke, neuropathy)Subacute R frontal infarct, neg carotids. Rec dual antiplt tx x 3 months then Plavix with risk factor modification. I do not think the pt would be an anticoagulant candidate. Pt may have neuropathic pain in legs. She believes she has been on lyrica. Although gabapentin might be helpful I suspect it will only worsen her peripheral edema. I would see if the effexor has any effect, and if not perhaps cautiously try gabapentin. TEDDY Max MD
[2018-01-09] MEDS: TRAMADOL HCL 50 MG TAB PO PRN (16:07)
[2018-01-09] MEDS: BOOST GLUCOSE CONTROL VANILLA PO SCH (17:20)
--- NOTE | 2018-01-09 17:47 | Progress Note ---
Progress Note Date of Service Jan 09, 2018. Progress Note Subjective: Patient denies acute pain. Patient able to eat food. Patient denies shortness of breath Physical Exam General: no acute distress Heart: regular rate Lungs: CTABL, no wheezing, no accessory muscle use Abdomen: soft, nontender, positive bowel sounds Neuro/ extremities: awake, alert, oriented, patient does not appear to be more focally weak on side vs other side, however has difficulty on her own to to get up from reclined position to sitting up Assessment and Plan history of Falls and generalized weakness on ED presentation Found to have -on admission with CT head scan of a small right frontal infarct, which is chronic in appearance but new from 07/07/2017 -Follow up MRI confirms subacute infarct right paraventricular region which is is superimposed upon considerable chronic small vessel change as well as moderate cerebellar as well as cerebral atrophy. -as per neurology the diagnosis is acute subacute right paraventricular stroke -main neurology recommendation is aspirin 81 mg and plavix 75 mg x 3 months then stop aspirin 81 mg and continue plavix 75 mg for a lifetime -PT/OT have evaluated the patient and recommendations include hospital disposition to [facility] facility vs physical therapy; will have case management follow for possible placement to these facilities -Continue PT/OT while inpatient -Other imaging in stroke workup shows normal MRA, normal carotid ultrasound, and normal echocardiogram History of Depression -evaluated by behavioral health/psychiatry who recommended stopping Zoloft and to starting Effexor XR 37.5 mg daily and that Effexor can be increased up to to 75 mg History of CAD Echocardiogram "Ejection Fraction = 65-70%. There is mild concentric left ventricular hypertrophy. 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 The anterior leaflet is thickened and mobile while the posterior leaflet is calcified with severely reduced mobility. There is mild mitral stenosis. Significant mitral regurgitation is absent. 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 There is mild tricuspid regurgitation. The estimated systolic pulmonary arterial pressure is 45 mmHg." -would hold off torsemide for now given normal systolic function and re-assess fluid status -Continue aspirin and beta-opal Skin -there is pressure ulcer near the buttock area -there is a right anterior ryder blister that has been resolving -wound care, encourage getting out of bed, repositioning as per nursing protocol -antibiotics of Augmentin was started for concerns of right leg cellulitis, will continue for now and follow up blood cultures -remove ortiz -urine culture has no bacterial growth CKD STAGE III -hold off torsemide HYPERTENSION -continue carvedilol DM TYPE II -Hgb A1c 9.2 11/2017 -NovoLog and Lantus as per protocol while hospitalized HYPOTHYROIDISM -Continue levothyroxine DVT PROPHYLAXIS -SQ heparin CODE STATUS -Patient is a full code
[2018-01-10 00:05] VITALS: BP 119/59; PULSE 63; TEMP 36.4; O2SAT 100
[2018-01-10] MEDS: LEVOTHYROXINE 200 MCG TAB PO SCH (05:31)
[2018-01-10] MEDS: HEPARIN SOD 5000 UNIT/0.5 ML CARP SQ SCH ×2 (06:23→12:54)
[2018-01-10 07:25] VITALS: BP 133/74; PULSE 61; TEMP 36.3; O2SAT 98
[2018-01-10 07:26] LABS: BASO % 0.4 %; BASO ABS # 0.04 K/uL (0-0.2); EOS % 1.1 %; EOS ABS # 0.11 K/uL (0-0.5); HEMATOCRIT 36.5 % (37-47); HEMOGLOBIN 11.8 g/dL (12.0-16.0); IG# 0.15 K/uL (0.00-0.02); LYMPH % 11.2 %; LYMPH ABS # 1.08 K/uL (1.2-3.4); MEAN CELL VOLUME 94.6 fL (80-100); MEAN CORPUSCULAR HEMOGLOBIN 30.6 pg (25-34); MEAN CORPUSCULAR HGB CONC 32.3 g/dl (32-36); MEAN PLATELET VOLUME 9.4 fL (7.4-10.4); MONO % 10.6 %; MONO ABS # 1.02 K/uL (0.11-0.59); NEUT % 75.1 %; NEUT ABS # 7.22 K/uL (1.4-6.5); PLATELET COUNT 489 K/uL (130-400); RED CELL DISTRIBUTION WIDTH SD 51.6 fL (36.4-46.3); WHITE BLOOD COUNT 9.62 K/uL (4.8-10.8)
[2018-01-10 07:51] LABS: CALCIUM 8.1 mg/dl (8.5-10.1); CREATININE 1.15 mg/dl (0.60-1.20); POTASSIUM 4.1 mmol/L (3.5-5.1)
[2018-01-10] MEDS ORDERED: VENLAFAXINE HCL XR 37.5 MG CAPXR PO SCH (08:00)
[2018-01-10] MEDS: BOOST GLUCOSE CONTROL VANILLA PO SCH ×2 (08:00→17:42)
[2018-01-10] MEDS: CARVEDILOL 12.5 MG TAB PO SCH (08:01)
[2018-01-10] MEDS: ASPIRIN 81 MG ECTAB PO SCH (08:01)
[2018-01-10] MEDS: ASCORBIC ACID 500 MG TAB PO SCH (08:02)
[2018-01-10] MEDS: CLOPIDOGREL BISULFATE 75 MG TAB PO SCH (08:02)
[2018-01-10] MEDS: RANITIDINE HCL 150 MG TAB PO SCH (08:02)
[2018-01-10] MEDS: MULTIVITAMIN TAB PO SCH (08:02)
[2018-01-10] MEDS: FERROUS SULFATE 325 MG TAB PO SCH (08:02)
[2018-01-10] MEDS: CHOLECALCIFEROL 1000 INTER.UNIT TAB PO SCH (08:02)
[2018-01-10] MEDS: MAGNESIUM OXIDE 400 MG TAB PO SCH (08:02)
[2018-01-10] MEDS: AMPICILLIN/SULBACTAM SOD INJ 3,000 MG in SODIUM CHLORIDE 0.9% 100ML 100 ML IV SCH (08:03)
[2018-01-10] MEDS: INSULIN ASPART 100 UNITS/ML 3 ML PEN SC SCH ×3 (08:58→17:41)
[2018-01-10] MEDS: CALCIUM 600MG + VIT D 400 IU TAB PO SCH (12:52)
[2018-01-10 14:29] VITALS: Ht 157.5 cm; Wt 72.5 kg
[2018-01-10] MEDS: TRAMADOL HCL 50 MG TAB PO PRN (14:37)
[2018-01-10] MEDS ORDERED: NURSING VERBAL MED ORDER ONE (14:45)
[2018-01-10] MEDS ORDERED: MICONAZOLE NITRATE POWDER 43 GM EXT PRN (15:00)
[2018-01-10 15:05] VITALS: BP 100/67; PULSE 68; TEMP 36.3; O2SAT 96
--- NOTE | 2018-01-10 16:13 | PROGRESS NOTE ---
DATE: 01/10/2018 Jemma was seen today. She is apparently going off to [facility] this afternoon. I reviewed the notes from Shi Ramsey and Shi Max who saw her yesterday reviewed her imaging studies and labs and felt that she probably had had a subacute infarct of an indeterminate time in the right hemisphere which probably contributed a little bit to her gait disturbance, but we do not really have an explanation for her sudden weakness in the legs that precipitated admission and then has not recurred. 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 At this point, I agree that reassessment of her condition after a trial of Effexor for her underlying depression is reasonable and this might help her perception of the pain and I agree that treating her with Neurontin is only likely to produce more edema and no benefit. At this point, follow up is as per Dr. Max's note, i.e., a reassessment in clinic. Consideration of an EMG (although I am not sure technically if this is feasible in light of the severe nature of her edema, as nerve conduction studies are going to be affected by the increased impedance and needle examination will probably only potentiate the possibility of underlying cellulitis.) I will let this decision up to Dr. Max. Neurology is going to sign off at this point. MARSHA
[2018-01-10] MEDS ORDERED: PLV75 PO (16:35)
[2018-01-10] MEDS ORDERED: VENL37.593 PO (16:35)
[2018-01-10] MEDS ORDERED: INSDGIPEN SC (16:35)
[2018-01-10] MEDS ORDERED: FURO-85 PO (16:37)
--- NOTE | 2018-01-10 16:50 | Progress Note ---
Internal Med Progress Note Date of Service: Jan 10, 2018. Provider Documentation: SUBJECTIVE: Patient denies acute pain. Patient able to eat food. Patient denies shortness of breath. Patent able to ambulate with walker OBJECTIVE: Physical Exam General: no acute distress Heart: regular rate Lungs: CTABL, no wheezing, no accessory muscle use Abdomen: soft, nontender, positive bowel sounds Neuro/ extremities: awake, alert, oriented, Patent able to ambulate with walker ASSESSMENT & PLAN: Hospital Course and Plan history of Falls and generalized weakness on ED presentation Found to have -on admission with CT head scan of a small right frontal infarct, which is chronic in appearance but new from 07/07/2017 -Follow up MRI confirms subacute infarct right paraventricular region which is is superimposed upon considerable chronic small vessel change as well as moderate cerebellar as well as cerebral atrophy. -Other imaging in stroke workup shows normal MRA, normal carotid ultrasound, and normal echocardiogram -as per neurology the diagnosis is acute subacute right paraventricular stroke -main neurology recommendation is aspirin 81 mg and plavix 75 mg x 3 months then stop aspirin 81 mg and continue plavix 75 mg for a lifetime -PT/OT have evaluated the patient for generalized weakness and gait dysfunction and recommended hospital discharge for further physical rehabilitation History of Depression -evaluated by behavioral health/psychiatry who recommended stopping Zoloft and to starting Effexor XR 37.5 mg daily and that Effexor can be increased up to to 75 mg History of CAD Echocardiogram "Ejection Fraction = 65-70%. There is mild concentric left ventricular hypertrophy. 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 The anterior leaflet is thickened and mobile while the posterior leaflet is calcified with severely reduced mobility. There is mild mitral stenosis. Significant mitral regurgitation is absent. 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 There is mild tricuspid regurgitation. The estimated systolic pulmonary arterial pressure is 45 mmHg." -Continue aspirin and beta-opal -unclear why as to patient being on torsemide BID at home given relatively normal systolic function, transition to Lasix 20 mg daily as outpatient in case of peripheral lower extremity edema Skin -there is pressure ulcer near the buttock area -there is a right anterior ryder blister that has been resolving -wound care, encourage getting out of bed, repositioning as per nursing protocol -antibiotics of Augmentin was started for concerns of right leg cellulitis have been stopped given negative blood cultures -urine culture has no bacterial growth CKD STAGE III -hold off torsemide, transition to Lasix 20 mg daily as outpatient HYPERTENSION -continue carvedilol DM TYPE II -Hgb A1c 9.2 11/2017 -Novolog 5units TID with meals and Lantus 5 units qhs HYPOTHYROIDISM -Continue levothyroxine Discharge to [facility] Patient should be followed up by a primary care doctor within a week (primary care doctor should adjust diuretics as needed and titrating up Effexor as needed ) She also has a previously scheduled appointment with her usual primary care doctor on 01/28/2018 2:20 PM Suzanne Admas MD Internal Medicine [facility] -main neurology recommendation is aspirin 81 mg and plavix 75 mg x 3 months then stop aspirin 81 mg and continue plavix 75 mg for a lifetime Patient will need to follow up [address]rology [address] [place] [place] [address] Please call to make appointment in 2 to 3 weeks from hospital discharge day of -patient may benefit from outpatient follow up with a psychiatry medical provider in a clinic Vital Signs: Date Time Temp Pulse Resp B/P (MAP) Pulse Ox O2 Delivery O2 Flow Rate FiO2 01/10/18 15:05 36.3 68 20 100/67 (78) 96 Room Air 01/10/18 10:13 Room Air 01/10/18 07:25 36.3 61 18 133/74 (93) 98 Room Air 01/10/18 00:30 Room Air 01/10/18 00:05 36.4 63 18 119/59 (79) 100 Room Air 01/09/18 20:11 36.4 80 20 128/67 (87) 99 Room Air 01/09/18 19:20 100 Room Air Lab Results: Results Past 24 Hours Test 01/09/18 20:09 01/10/18 00:30 01/10/18 06:39 01/10/18 07:38 Range/Units Bedside Glucose 86 102 57 70-90 mg/dl White Blood Count 9.62 4.8-10.8 K/uL Red Blood Count 3.86 4.2-5.4 M/uL Hemoglobin 11.8 12.0-16.0 g/dL Hematocrit 36.5 37-47 % Mean Corpuscular Volume 94.6 80-100 fL Mean Corpuscular Hemoglobin 30.6 25-34 pg Mean Corpuscular Hemoglobin Concent 32.3 32-36 g/dl Platelet Count 489 130-400 K/uL Mean Platelet Volume 9.4 7.4-10.4 fL Neutrophils (%) (Auto) 75.1 % Lymphocytes (%) (Auto) 11.2 % Monocytes (%) (Auto) 10.6 % Eosinophils (%) (Auto) 1.1 % Basophils (%) (Auto) 0.4 % Neutrophils # (Auto) 7.22 1.4-6.5 K/uL Lymphocytes # (Auto) 1.08 1.2-3.4 K/uL Monocytes # (Auto) 1.02 0.11-0.59 K/uL Eosinophils # (Auto) 0.11 0-0.5 K/uL Basophils # (Auto) 0.04 0-0.2 K/uL RDW Standard Deviation 51.6 36.4-46.3 fL RDW Coefficient of Variation 15.0 11.5-14.5 % Immature Granulocyte % (Auto) 1.6 % Immature Granulocyte # (Auto) 0.15 0.00-0.02 K/uL Sodium Level 140 136-145 mmol/L Potassium Level 4.1 3.5-5.1 mmol/L Chloride Level 103 98-107 mmol/L Carbon Dioxide Level 32 21-32 mmol/L Anion Gap 5.0 3-11 mmol/L Blood Urea Nitrogen 24 7-18 mg/dl Creatinine 1.15 0.60-1.20 mg/dl Est Creatinine Clear Calc Drug Dose 36.4 ml/min Estimated GFR () 52.0 Estimated GFR (Non- 44.9 BUN/Creatinine Ratio 21.0 10-20 Random Glucose 50 70-99 mg/dl Calcium Level 8.1 8.5-10.1 mg/dl Total Creatine Kinase 99 26-192 U/L Test 01/10/18 07:39 01/10/18 08:04 01/10/18 11:54 01/10/18 16:55 Range/Units Bedside Glucose 62 70 145 135 70-90 mg/dl
--- NOTE | 2018-01-10 17:02 | Discharge Instructions ---
Discharge Instructions Date of Service Jan 10, 2018. Admission Reason for Admission: FALL Discharge Discharge Diagnosis / Problem: acute vs subacute right paraventricular stroke, generalized weakness, DM Discharge Goals Goal(s): Improve function, Improve disease control Activity Recommendations Activity Limitations: per Instructions/Follow-up section . Instructions / Follow-Up Instructions / Follow-Up Hospital Course and Plan history of Falls and generalized weakness on ED presentation Found to have -on admission with CT head scan of a small right frontal infarct, which is chronic in appearance but new from 07/07/2017 -Follow up MRI confirms subacute infarct right paraventricular region which is is superimposed upon considerable chronic small vessel change as well as moderate cerebellar as well as cerebral atrophy. -Other imaging in stroke workup shows normal MRA, normal carotid ultrasound, and normal echocardiogram -as per neurology the diagnosis is acute subacute right paraventricular stroke -main neurology recommendation is aspirin 81 mg and plavix 75 mg x 3 months then stop aspirin 81 mg and continue plavix 75 mg for a lifetime -PT/OT have evaluated the patient for generalized weakness and gait dysfunction and recommended hospital discharge for further physical rehabilitation History of Depression -evaluated by behavioral health/psychiatry who recommended stopping Zoloft and to starting Effexor XR 37.5 mg daily and that Effexor can be increased up to to 75 mg History of CAD Echocardiogram "Ejection Fraction = 65-70%. There is mild concentric left ventricular hypertrophy. 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 The anterior leaflet is thickened and mobile while the posterior leaflet is calcified with severely reduced mobility. There is mild mitral stenosis. Significant mitral regurgitation is absent. 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 There is mild tricuspid regurgitation. The estimated systolic pulmonary arterial pressure is 45 mmHg." -Continue aspirin and beta-opal -unclear why as to patient being on torsemide BID at home given relatively normal systolic function, transition to Lasix 20 mg daily as outpatient in case of peripheral lower extremity edema Skin -there is pressure ulcer near the buttock area -there is a right anterior ryder blister that has been resolving -wound care, encourage getting out of bed, repositioning as per nursing protocol -antibiotics of Augmentin was started for concerns of right leg cellulitis have been stopped given negative blood cultures -urine culture has no bacterial growth CKD STAGE III -hold off torsemide, transition to Lasix 20 mg daily as outpatient HYPERTENSION -continue carvedilol DM TYPE II -Hgb A1c 9.2 11/2017 -Novolog 5units TID with meals and Lantus 5 units qhs HYPOTHYROIDISM -Continue levothyroxine Discharge to [facility] for physical Rehabilitation Patient should be followed up by a primary care doctor within a week (primary care doctor should adjust diuretics as needed and titrating up Effexor as needed ) She also has a previously scheduled appointment with her usual primary care doctor on 01/28/2018 2:20 PM Suzanne Adams MD Internal Medicine [facility] neurology recommendation is aspirin 81 mg and plavix 75 mg x 3 months then stop aspirin 81 mg and continue plavix 75 mg for a lifetime Patient will need to follow up with Neurology at [address] [place] [address] Please call to make appointment in 2 to 3 weeks from hospital discharge day of -patient may benefit from outpatient follow up with a psychiatry medical provider in a clinic Current Hospital Diet Patient's current hospital diet: AHA Diet (Heart Healthy), Diabetes Type 2 Diet Discharge Diet Recommended Diet: Diabetes Type 2 Diet Pending Studies Studies pending at discharge: no Laboratory Results Hemoglobin A1c Test 01/08/18 11:55 Range/Units Estimated Average Glucose 237 mg/dl Hemoglobin A1c 9.9 H 4.5-5.6 % Lipid Panel Test 01/09/18 06:00 Range/Units Triglycerides Level 67 0-150 mg/dl Cholesterol Level 67 0-200 mg/dl HDL Cholesterol 30 mg/dl Cholesterol/HDL Ratio 2.2 LDL Cholesterol, Calculated 24 mg/dl Medical Emergencies . Who to Call and When: Medical Emergencies: If at any time you feel your situation is an emergency, please call 911 immediately. . Non-Emergent Contact Non-Emergency issues call your: Primary Care Provider, Neurologist Call Non-Emergent contact if: you have any medication questions . . "Provider Documentation" section prepared by Yang Corbin. .
[2018-01-10] MEDS ORDERED: NVLGI/PEN SQ (17:03)
--- NOTE | 2018-01-10 17:07 | Discharge Summary ---
Discharge Summary Date of Service Jan 10, 2018. Discharge Summary Admission Date: Jan 08, 2018 at 13:18 Discharge Date: Jan 10, 2018 Discharge Disposition: Rehab Principal Diagnosis: acute/subacute right paraventricular stroke generalized weakness, gait dysfunction Depression pressure ulcer near the buttock area right anterior ryder blister which was empirically given antibiotics for possible cellulitus but cellulitis infection ruled out Secondary Diagnoses/Problems: CKD STAGE III HYPERTENSION DM Mellitus TYPE II on care home insulin HYPOTHYROIDISM Medication Reconciliation New Medications: Furosemide (Lasix) 20 Mg Tab 20 MG PO DAILY for 30 Days, #30 TAB Clopidogrel Bisulfate (Clopidogrel) 75 Mg Tab 75 MG PO QAM for 30 Days, #30 TAB Insulin Glargine (Lantus Solostar) 100 Unit/Ml Inj 5 UNITS SC HS for 30 Days, #30 PEN Venlafaxine Hcl (Venlafaxine Extended Rel) 37.5 Mg Cap 37.5 MG PO QAM for 30 Days, #30 CAP Changed Medications: Insulin Aspart (Novolog Flexpen) 100 Units/Ml Inj 5 UNITS SQ TIDM for 30 Days, #90 PEN (Changed from: 10 UNITS) Continued Medications: Acetaminophen (Tylenol) 500 Mg Tab 1000 MG PO Q6 PRN for Pain Ascorbic Acid (Vitamin C) 500 Mg Tab 1 TAB PO QAM Aspirin (Aspirin 81) 81 Mg Tab 81 MG PO DAILY Calcium Carbonate-Vitamin D (Calcium) 1 Tab Tab 1 TAB PO DAILY Carvedilol (Coreg) 12.5 Mg Tab 12.5 MG PO BID Cholecalciferol (Vitamin D3) 2,000 Unit Tab 1 TAB PO QAM Ferrous Sulfate (Kp Ferrous Sulfate) 325 Mg Tab 1 TAB PO DAILY for 30 Days, #30 TAB 3 Refills Levothyroxine Sodium (Levothyroxine Sodium) 200 Mcg Tab 200 MCG PO DAILY TAKE ATLEAST 30 MIN PRIOR TO BREAKFAST OR ANYOTHER MEDICATIONS Magnesium Oxide (Mag-Ox) 400 Mg Tab 400 MG PO BID Multivitamin (Multivitamin) Tab 1 TAB PO DAILY Ranitidine (Zantac) 150 Mg Tab 150 MG PO DAILY Tramadol (Ultram) 50 Mg Tab 50 MG PO Q8H PRN for Pain Discontinued Medications: Sertraline (Zoloft) 100 Mg Tab 100 MG PO DAILY Torsemide (Demadex) 20 Mg Tab 20 MG PO BID TAKES IN THE MORNING AND AFTERNOON Admission Information HPI (per Admitting provider): 82-year-old female who presents the ED after a fall. Patient reports that she had woke up this morning and was walking to the bathroom with her walker when she suddenly felt very weak. She reports that her legs felt weak equally. Her tried to help her however bumped her walker in her legs and walker when out from under her. No associated chest pain, shortness of breath, lightheadedness, dizziness, syncopal event. She denies unilateral weakness, numbness, tingling, facial droop, drooling. She has been having some difficulty swallowing her pills recently but denies troubles with food. She was unable to get up off the floor. EMS was then called and patient was brought to the ER for further evaluation. Over the past several months, patient has had increasing feelings of depression and very poor appetite. Patient denies any suicidal or homicidal thoughts. During her admissions in July, her sertraline was decreased and then subsequently changed to Remeron. Remeron was then thought to be causing her taste disturbance. So it was then changed to Lexapro. Lexapro was not helping her depression symptoms then patient was changed back to sertraline 100 mg daily. Patient's Nasonex was discontinued and her taste disturbances improved. Patient was recently treated for a suspected UTI on 12/24. She was given Cipro for 7 days. No urine culture was obtained. Patient reports some increasing dysuria for the past few days. No fevers or chills. About 1 week ago, patient reports her cat jumped up onto her bed and landed on her right leg. She then developed a blister with some surrounding erythema. There has been no drainage. Patient has chronic bilateral lower extremity edema from lymphedema which is unchanged from baseline. In the ED, patient's head CT is showing a chronic however new right frontal infarct. Labs are unremarkable. Patient is hemodynamically stable. Patient was given a dose of IV Zosyn. Physical Exam (per Admitting): General Appearance: WD/WN, no apparent distress Head: normocephalic, atraumatic Eyes: normal inspection, EOMI, sclerae normal ENT: hearing grossly normal, + pertinent finding (Mucous membranes dry) Neck: supple, no JVD, trachea midline Respiratory/Chest: lungs clear, normal breath sounds, no respiratory distress Cardiovascular: regular rate, rhythm, normal peripheral pulses, + pertinent finding (+2 edema BLE) Abdomen/GI: normal bowel sounds, non tender, soft, no organomegaly Extremities/Musculoskelatal: normal inspection, no calf tenderness, normal capillary refill Neurologic/Psych: no motor/sensory deficits, alert, oriented x 3, + depressed affect Skin: normal color, warm/dry, + pertinent finding (Dry flaky skin noted to bilateral lower extremities; approximate 2-3 cm blood blister with surrounding erythema noted to the right anterior ryder) Hospital Course Hospital Course and Plan history of Falls and generalized weakness on ED presentation Found to have -on admission with CT head scan of a small right frontal infarct, which is chronic in appearance but new from 07/07/2017 -Follow up MRI confirms subacute infarct right paraventricular region which is is superimposed upon considerable chronic small vessel change as well as moderate cerebellar as well as cerebral atrophy. -Other imaging in stroke workup shows normal MRA, normal carotid ultrasound, and normal echocardiogram -as per neurology the diagnosis is acute subacute right paraventricular stroke -main neurology recommendation is aspirin 81 mg and plavix 75 mg x 3 months then stop aspirin 81 mg and continue plavix 75 mg for a lifetime -PT/OT have evaluated the patient for generalized weakness and gait dysfunction and recommended hospital discharge for further physical rehabilitation History of Depression -evaluated by behavioral health/psychiatry who recommended stopping Zoloft and to starting Effexor XR 37.5 mg daily and that Effexor can be increased up to to 75 mg History of CAD Echocardiogram "Ejection Fraction = 65-70%. There is mild concentric left ventricular hypertrophy. 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 The anterior leaflet is thickened and mobile while the posterior leaflet is calcified with severely reduced mobility. There is mild mitral stenosis. Significant mitral regurgitation is absent. 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 There is mild tricuspid regurgitation. The estimated systolic pulmonary arterial pressure is 45 mmHg." -Continue aspirin and beta-opal -unclear why as to patient being on torsemide BID at home given relatively normal systolic function, transition to Lasix 20 mg daily as outpatient in case of peripheral lower extremity edema Skin -there is pressure ulcer near the buttock area -there is a right anterior ryder blister that has been resolving -wound care, encourage getting out of bed, repositioning as per nursing protocol -antibiotics of Augmentin was started for concerns of right leg cellulitis have been stopped given negative blood cultures -urine culture has no bacterial growth CKD STAGE III -hold off torsemide, transition to Lasix 20 mg daily as outpatient HYPERTENSION -continue carvedilol DM TYPE II -Hgb A1c 9.2 11/2017 -Novolog 5units TID with meals and Lantus 5 units qhs HYPOTHYROIDISM -Continue levothyroxine Discharge to [facility] Patient should be followed up by a primary care doctor within a week (primary care doctor should adjust diuretics as needed and titrating up Effexor as needed ) She also has a previously scheduled appointment with her usual primary care doctor on 01/28/2018 2:20 PM Suzanne Adams MD Internal Medicine [facility] neurology recommendation is aspirin 81 mg and plavix 75 mg x 3 months then stop aspirin 81 mg and continue plavix 75 mg for a lifetime Patient will need to follow up with Neurology at [address] [place] [address] Please call to make appointment in 2 to 3 weeks from hospital discharge day of -patient may benefit from outpatient follow up with a psychiatry medical provider in a clinic Total time spent on discharge = 40 minutes This includes examination of the patient, discharge planning, medication reconciliation, and communication with other providers. Discharge Instructions see above
[2018-01-10 17:10] VITALS: BP 100/67; PULSE 68; TEMP 36.3; O2SAT 96
[2018-01-10] MEDS ORDERED: INSULIN GLARGINE SOLOSTAR 100 UNITS/ML 3 ML PEN SC SCH (21:00)
== END 2018-01-10 19:00 | DRG 64 ==
LOC: EDBD 11:06 → C.EDC 11:07 → C.2T 13:18 → ENRESERV 13:29 → C.4E 01-09 15:06
PROVIDERS: ADMIT Internal Medicine; ATTEND Hospitalist
DX: I63.8 Other cerebral infarction (principal); L89.313 Pressure ulcer of right buttock, stage 3; L89.323 Pressure ulcer of left buttock, stage 3; L89.153 Pressure ulcer of sacral region, stage 3; I13.0 Hypertensive heart and chronic kidney disease with heart failure and stage 1 through stage 4 chronic kidney disease, or unspecified chronic kidney disease; N39.0 Urinary tract infection, site not specified; I50.32 Chronic diastolic (congestive) heart failure; R53.1 Weakness; R13.10 Dysphagia, unspecified; E11.22 Type 2 diabetes mellitus with diabetic chronic kidney disease; N18.3 Chronic kidney disease, stage 3 (moderate); E11.40 Type 2 diabetes mellitus with diabetic neuropathy, unspecified; R29.6 Repeated falls; F32.9 Major depressive disorder, single episode, unspecified; D64.9 Anemia, unspecified; E78.5 Hyperlipidemia, unspecified; K21.9 Gastro-esophageal reflux disease without esophagitis; Z79.4 Long term (current) use of insulin; Z79.82 Long term (current) use of aspirin; Z79.899 Other long term (current) drug therapy; Z91.81 History of falling

== ENCOUNTER 2018-08-22 04:32 | Inpatient (IN) ==
[2018-08-22] MEDS ORDERED: ACETAMINOPHEN 1,000 MG/100 ML VIAL IV ONE (04:56)
[2018-08-22] MEDS ORDERED: HydrALAZINE HCL 20 MG/ML VIAL IV ONE (04:56)
[2018-08-22 05:15] LABS: Basophils # (auto) 0.02 K/uL (0-0.2); Basophils % (auto) 0.3 %; Hematocrit (blood only) 29.6 % (37-47); Hemoglobin 9.7 g/dL (12.0-16.0); Immature Granulocytes # (auto) 0.04 K/uL (0.00-0.02); Immature Granulocytes % (auto) 0.5 %; Lymphocytes # (auto) 0.66 K/uL (1.2-3.4); Lymphocytes % (auto) 8.4 %; Mean Corpuscular Hgb Conc 32.8 g/dL (32-36); Mean Corpuscular Volume 92.5 fL (80-100); Mean Platelet Volume 9.1 fL (7.4-10.4); Monocytes # (auto) 0.58 K/uL (0.11-0.59); Monocytes % (auto) 7.4 %; Neutrophils # (auto) 6.57 K/uL (1.4-6.5); Neutrophils % (auto) 83.4 %; Platelet Count 207 K/uL (130-400); RDW Coefficient of Variation 14.4 % (11.5-14.5); RDW Standard Deviation 48.9 fL (36.4-46.3); White Blood Count 7.87 K/uL (4.8-10.8)
[2018-08-22 05:41] LABS: Albumin Level 2.5 gm/dl (3.4-5.0); BUN Creatinine Ratio 22.2 (10-20); Calcium 8.6 mg/dl (8.5-10.1); Est GFR (African American) 50.4; Est GFR (Non-African American) 43.5
[2018-08-22 05:48] LABS: Albumin Globulin Ratio 0.7 (0.9-2); Bilirubin,Total 0.2 mg/dl (0.2-1); Globulin 3.7 gm/dl (2.5-4.0); Total Protein 6.2 gm/dl (6.4-8.2); Troponin I 0.023 ng/ml (0-0.045)
[2018-08-22 05:57] LABS: Appearance Urine Clear (Clear); Bacteria Urine Automated Negative (Negative); Bilirubin Urine Negative (Negative); Blood Urine Negative (Negative); Cast Urine Automated 0 /lpf (0-5); Color Urine Yellow; Glucose Urine UA Negative (Negative); Ketones Urine Negative (Negative); Leukocyte Esterase Urine Negative (Negative); Nitrite Urine Negative (Negative); RBC Urine Automated >30 /hpf (0-4); Urobilinogen Urine Negative (Negative); pH Urine >= 9.0 (4.5-7.5)
[2018-08-22] MEDS ORDERED: PIPERACILL/TAZOBAC CONSULT ACTIVE PRN (06:03)
[2018-08-22] MEDS ORDERED: PIPERACILLIN/TAZOBACTAM 4.5 GM/120 ML BAG IV ONE (06:03)
[2018-08-22 06:18] LABS: Protein Urine 1+ (Negative)
--- NOTE | 2018-08-22 06:35 | XRay Report ---
XR chest 1V portable HISTORY: 82 years-old Female fever acute fever COMPARISON: Chest CT of same day TECHNIQUE: Portable AP view of the chest. FINDINGS: Prosthetic mitral valve. Heart is mildly enlarged. Trace pleural effusions with fluid about the fissu res. Bibasilar in right midlung airspace opacities. No pneumothorax or overt pulmonary edema. Degener ative changes are seen about the shoulders and spine. Surgical suture material an surgical clips proj ect over the right hemithorax. IMPRESSION: 1. Mild cardiomegaly without overt pulmonary edema. 2. Trace pleural effusions with bibasilar and right midlung airspace opacities. Please refer to chest CT of same day for further details. The above report was generated using voice recognition software. It may contain grammatical, syntax o r spelling errors. Electronically signed by: Jake Cervantes M.D. 08/22/2018 6:34 AM
--- NOTE | 2018-08-22 06:51 | CT Scan Report ---
CT head/brain wo con CT DOSE: HISTORY: Mental status change AMS TECHNIQUE: Multiaxial CT images of the head were performed without the use of intravenous contrast. A dose lowering technique was utilized adhering to the principles of ALARA. Comparison: None. Findings: Small amount of fluid within the sphenoid sinuses. All remaining sinuses are clear. Moderate age-related atrophy of the cerebellar as well as cerebral hemispheres. Several small old per iventricular and basal ganglia infarcts. No acute intracranial abnormality. No midline shift. No evid ence for acute intracranial hemorrhage. Impression: 1. No acute intracranial abnormality. 2. Atrophy and chronic small vessel change. 3. Trace fluid within the sphenoid sinus. The above report was generated using voice recognition software. It may contain grammatical, syntax or spelling errors. Electronically signed by: jV Rinaldi M.D. 08/22/2018 6:50 AM
[2018-08-22 07:17] LABS: Influenza B virus by PCR Neg for Influ B (Neg)
--- NOTE | 2018-08-22 07:59 | Emergency Department Note ---
Entered by [id number] acting as a scribe for Lorena Silva MD History of Present Illness General Chief complaint: Illness Stated complaint: ILLNESS Source: family History of Present Illness Onset (ago): day(s) (yesterday) Location: upper extremity and lower extremity Pain Consistency: + other (worsening) Quality: + other (illness) Associated symptoms: + confusion, + cough, + fever/chills (fever), + loss of appetite, + weakness and + other (alternating blood pressure, lethargy) The patient is an 82 year old female who presents to the Emergency Room with complaints of worsening illness starting yesterday. Per the patients daughter, the patient has been having a decline over the past 6 weeks. She states that she has been more confused and had alternating blood pressures from high to low. She states that yesterday the patient seemed very lethargic and weak. She states that she had low grade fever. She reports that 2 hours ago she called out for help to the bathroom. She states that she tried to help the patient, but she was so weak she couldnt even help her. She states that she called 911 as well because she felt very warm. She notes that the patient has had loss of appetite and a cough. She states that she did get her flu shot this year. She denies the patient taking anything for her fever before coming in. Home Medications Home Medications Medication Instructions Recorded Confirmed Type ascorbic acid (vitamin C) [Vitamin 500 mg PO DAILY 08/22/18 08/22/18 History C] calcium carbonate [Calcium 600] 600 mg PO DAILY 08/22/18 08/22/18 History carvedilol 25 mg PO BID 08/22/18 08/22/18 History cholecalciferol (vitamin D3) 2,000 unit PO DAILY 08/22/18 08/22/18 History [Vitamin D3] clopidogrel [Plavix] 75 mg PO DAILY 08/22/18 08/22/18 History ferrous sulfate 325 mg PO DAILY 08/22/18 08/22/18 History furosemide 20 mg PO DAILY PRN 08/22/18 08/22/18 History furosemide 40 mg PO DAILY 08/22/18 08/22/18 History hydralazine 12.5 mg PO TID 08/22/18 08/22/18 History insulin glargine [Lantus Solostar 12 unit SUBCUT DAILY 08/22/18 08/22/18 History U-100 Insulin] levothyroxine 200 mcg PO DAILY 08/22/18 08/22/18 History magnesium oxide 400 mg PO TID 08/22/18 08/22/18 History metformin 1,000 mg PO BID 08/22/18 08/22/18 History multivitamin 1 tab PO DAILY 08/22/18 08/22/18 History ranitidine HCl 150 mg PO BID 08/22/18 08/22/18 History tramadol 50 mg PO HS PRN 08/22/18 08/22/18 History venlafaxine 150 mg PO DAILY 08/22/18 08/22/18 History vitamin A 10,000 unit PO DAILY 08/22/18 08/22/18 History zinc sulfate 220 mg PO DAILY 08/22/18 08/22/18 History Allergies Allergy/AdvReac Type Severity Reaction Status Date / Time No Known Allergies Allergy Unverified 08/22/18 08:40 Past Med/Surg History Medical History CVA (cerebral vascular accident) (Chronic) Iron deficiency anemia (Chronic) Anemia due to chronic kidney disease (Chronic) Chronic diastolic CHF (congestive heart failure) (Chronic) CAD (coronary artery disease) (Chronic) Cardiac cath 2011 demonstrated nonobstructive disease Diabetic polyneuropathy (Chronic) Diabetes mellitus, type II (Chronic) Hypothyroidism (Chronic) GERD (gastroesophageal reflux disease) (Chronic) Dyslipidemia (Chronic) Hypertension (Chronic) Venous insufficiency of both lower extremities (Chronic) Depression (Chronic) Chronic kidney disease (CKD), stage III (moderate) (Chronic) Osteoporosis (Chronic) History of pleural effusion (Chronic) With multiple thoracentesis Surgical History S/P patent foramen ovale closure (Chronic) Status post hysterectomy (Chronic) Status post cholecystectomy (Chronic) Status post cataract extraction (Chronic) Status post mitral valve repair (Chronic) Family History Other Family history non-contributory Social History Communication Ability: Effective Beliefs That Will Affect Care: None marital status: Current Living Situation: Spouse and Family current occupational status: retired Other Information That Helps Us Care for You: No Feels Safe at Home: Yes Safety Concerns: Feels Safe At This Time Smoking Status: Never smoker Hx Alcohol Use: No Hx Substance Use: No Review of Systems See HPI for pertinent positives & negatives. and A total of 10 systems reviewed and were otherwise negative Physical Exam Vital Signs Vital Signs - 24 hr 08/24/18 07:10 08/24/18 07:20 08/24/18 09:00 Temperature 36.9 C Temperature Source Oral Pulse Rate [Left Finger] 60 60 Respiratory Rate 16 16 Respiratory Effort / Characteristics Non-Labored Spontaneous Non-Labored Respiratory Depth Normal Respiratory Pattern Regular Blood Pressure [Left Arm] 173/70 H Blood Pressure Mean [Left Arm] 104 Blood Pressure Position [Left Arm] Lying Pulse Oximetry 98 98 Oxygen Delivery Method Room Air Room Air 08/24/18 15:24 08/24/18 15:33 08/24/18 16:00 Temperature 36.8 C Temperature Source Oral Pulse Rate [Left Finger] 87 60 Respiratory Rate 16 Respiratory Effort / Characteristics Non-Labored SOB on Exertion Respiratory Depth Normal Respiratory Pattern Regular Blood Pressure [Left Arm] 191/67 H 174/68 H Blood Pressure Mean [Left Arm] 108 103 Blood Pressure Position [Left Arm] Lying Sitting Pulse Oximetry 98 97 Oxygen Delivery Method Room Air Room Air Room Air 08/24/18 22:19 08/24/18 22:49 08/25/18 00:00 Temperature 36.6 C Temperature Source Oral Pulse Rate [Left Finger] 56 L Respiratory Rate 19 16 Respiratory Effort / Characteristics Non-Labored Non-Labored Respiratory Depth Normal Normal Respiratory Pattern Regular Blood Pressure [Left Arm] 164/69 H 167/66 H Blood Pressure Mean [Left Arm] 100 99 Blood Pressure Position [Left Arm] Sitting Lying Pulse Oximetry 98 Oxygen Delivery Method Room Air Vital signs reviewed. Low grade fever. General: Elderly. Ill-appearing, in no significant distress. HEENT: No scleral icterus, PERRLA, neck supple. Dry mucus membranes. Atraumatic. Cardiovascular: Regular rate and rhythm, no extra sounds. Pulmonary: Crackles at the bases bilaterally, normal work of breathing. Abdomen: Soft, nontender, nondistended, positive bowel sounds. Musculoskeletal: Atraumatic, no peripheral edema. Neurologic: Patient somnolent but alert and answers most questions appropriately. Follows commands, but generally weak. Skin: Warm, dry, no rash Course 0454: Past medical records reviewed. The patient was evaluated in room A4B, and a complete history and physical examination were performed. 0709: I reviewed the patient's case with Dr. Ricky Silvestre. He will evaluate the patient for further management. 0721: I reevaluated the patient and updated her and her family on her test results. I discussed the treatment plan with them. They verbally agree and un derstands. Consultations Consultation #1: I reviewed the patient's case with Dr. Ricky Silvestre. He will evaluate the patient for further management. Time: 07:09 Administered Medications Acetaminophen (Tylenol) 650 mg PO Q4H PRN PRN Reason: pain/fever Stop: 09/21/18 11:49 Last Admin: 08/24/18 16:23 Dose: 650 mg Documented by: [id number] Admin: 08/22/18 12:13 Dose: 650 mg Documented by: [id number] Ascorbic Acid (Vitamin C) 500 mg PO DAILY [facility] Stop: 09/22/18 08:59 Last Admin: 08/24/18 08:53 Dose: 500 mg Documented by: [id number] Admin: 08/23/18 07:47 Dose: 500 mg Documented by: [id number] Carvedilol (Coreg) 25 mg PO BID [facility] Stop: 09/21/18 20:59 Last Admin: 08/24/18 20:59 Dose: 25 mg Documented by: [id number] Admin: 08/24/18 08:53 Dose: 25 mg Documented by: [id number] Admin: 08/23/18 20:40 Dose: 25 mg Documented by: [id number] Admin: 08/23/18 07:47 Dose: 25 mg Documented by: [id number] Admin: 08/22/18 21:52 Dose: 25 mg Documented by: [id number] Clopidogrel Bisulfate (Plavix) 75 mg PO DAILY [facility] Stop: 09/22/18 08:59 Last Admin: 08/24/18 08:51 Dose: 75 mg Documented by: [id number] Admin: 08/23/18 07:46 Dose: 75 mg Documented by: [id number] Ferrous Sulfate (Feosol) 325 mg PO DAILY [facility] Stop: 09/22/18 08:59 Last Admin: 08/24/18 08:54 Dose: 325 mg Documented by: [id number] Admin: 08/23/18 07:47 Dose: 325 mg Documented by: [id number] Furosemide (Lasix) 40 mg PO DAILY [facility] Stop: 09/23/18 08:59 Last Admin: 08/24/18 08:50 Dose: 40 mg Documented by: [id number] Heparin Sodium (Porcine) (Heparin Sodium (Porcine)) 5,000 units SQ Q8 [facility] Stop: 09/21/18 13:59 Last Admin: 08/25/18 05:57 Dose: 5,000 units Documented by: [id number] Cosigned by: [id number] Admin: 08/24/18 21:00 Dose: 5,000 units Documented by: [id number] Cosigned by: [id number] Admin: 08/24/18 14:16 Dose: 5,000 units Documented by: [id number] Cosigned by: [id number] Admin: 08/24/18 05:42 Dose: 5,000 units Documented by: [id number] Cosigned by: [id number] Admin: 08/23/18 20:40 Dose: 5,000 units Documented by: [id number] Cosigned by: [id number] Admin: 08/23/18 13:06 Dose: 5,000 units Documented by: [id number] Cosigned by: [id number] Admin: 08/23/18 05:33 Dose: 5,000 units Documented by: [id number] Cosigned by: [id number] Admin: 08/22/18 21:54 Dose: 5,000 units Documented by: [id number] Cosigned by: [id number] Admin: 08/22/18 13:52 Dose: 5,000 units Documented by: [id number] Cosigned by: [id number] Hydralazine HCl (Apresoline) 25 mg PO BID [facility] Stop: 09/23/18 20:59 Last Admin: 08/24/18 20:58 Dose: 25 mg Documented by: [id number] Insulin Aspart (Novolog Flexpen) 0 units SC ACHS [facility] Stop: 09/21/18 11:49 Last Admin: 08/24/18 21:02 Dose: 2 units Documented by: [id number] Cosigned by: [id number] Admin: 08/24/18 18:01 Dose: 11 units Documented by: [id number] Cosigned by: [id number] Admin: 08/24/18 12:06 Dose: 11 units Documented by: [id number] Cosigned by: [id number] Admin: 08/24/18 09:06 Dose: 4 units Documented by: [id number] Cosigned by: [id number] Admin: 08/23/18 20:42 Dose: Not Given Documented by: [id number] Cosigned by: [id number] Admin: 08/23/18 17:47 Dose: 4 units Documented by: [id number] Cosigned by: [id number] Admin: 08/23/18 12:30 Dose: 5 units Documented by: [id number] Cosigned by: [id number] Admin: 08/23/18 07:48 Dose: 2 units Documented by: [id number] Cosigned by: [id number] Admin: 08/22/18 21:55 Dose: 1 units Documented by: [id number] Cosigned by: [id number] Admin: 08/22/18 17:20 Dose: 3 units Documented by: [id number] Cosigned by: [id number] Admin: 08/22/18 13:51 Dose: Not Given Documented by: [id number] Cosigned by: [id number] Levothyroxine Sodium (Synthroid) 200 mcg PO DAILYBB [facility] Stop: 09/22/18 06:29 Last Admin: 08/25/18 05:57 Dose: 200 mcg Documented by: [id number] Admin: 08/24/18 05:42 Dose: 200 mcg Documented by: [id number] Admin: 08/23/18 05:33 Dose: 200 mcg Documented by: [id number] Magnesium Oxide (Mag-Ox) 400 mg PO TID [facility] Stop: 09/21/18 13:59 Last Admin: 08/24/18 21:00 Dose: 400 mg Documented by: [id number] Admin: 08/24/18 14:05 Dose: 400 mg Documented by: [id number] Admin: 08/24/18 08:51 Dose: 400 mg Documented by: [id number] Admin: 08/23/18 20:39 Dose: 400 mg Documented by: [id number] Admin: 08/23/18 13:06 Dose: 400 mg Documented by: [id number] Admin: 08/23/18 07:46 Dose: 400 mg Documented by: [id number] Admin: 08/22/18 21:52 Dose: 400 mg Documented by: [id number] Admin: 08/22/18 15:38 Dose: 400 mg Documented by: [id number] Multivitamins (Multivitamin Tab) 1 tab PO DAILY [facility] Stop: 09/22/18 08:59 Last Admin: 08/24/18 08:50 Dose: 1 tab Documented by: [id number] Admin: 08/23/18 07:46 Dose: 1 tab Documented by: [id number] Multivitamins/Minerals (Caltrate Plus) 1 tab PO DAILY [facility] Stop: 09/22/18 08:59 Last Admin: 08/24/18 08:55 Dose: 1 tab Documented by: [id number] Admin: 08/23/18 07:47 Dose: 1 tab Documented by: [id number] Oseltamivir Phosphate 30mg~Non- Formulary Patient's Own Med 1 ea PO BID [facility]; Protocol Stop: 08/26/18 09:01 Last Admin: 08/24/18 21:02 Dose: 30 mg Documented by: [id number] Admin: 08/24/18 09:27 Dose: 30 mg Documented by: [id number] Admin: 08/23/18 20:42 Dose: 30 mg Documented by: [id number] Admin: 08/23/18 07:45 Dose: 30 mg Documented by: [id number] Admin: 08/22/18 21:52 Dose: 30 mg Documented by: [id number] Admin: 08/22/18 13:49 Dose: 30 mg Documented by: [id number] Ranitidine HCl (Zantac) 150 mg PO BID [facility] Stop: 09/21/18 20:59 Last Admin: 08/24/18 21:01 Dose: 150 mg Documented by: [id number] Admin: 08/24/18 08:50 Dose: 150 mg Documented by: [id number] Admin: 08/23/18 20:38 Dose: 150 mg Documented by: [id number] Admin: 08/23/18 07:47 Dose: 150 mg Documented by: [id number] Admin: 08/22/18 21:53 Dose: 150 mg Documented by: [id number] Vitamin D (Vitamin D3) 2,000 units PO DAILY [facility] Stop: 09/22/18 08:59 Last Admin: 08/24/18 08:51 Dose: 2,000 units Documented by: [id number] Admin: 08/23/18 07:47 Dose: 2,000 units Documented by: [id number] Zinc Sulfate (Zinc Sulfate) 220 mg PO DAILY [facility] Stop: 09/22/18 08:59 Last Admin: 08/24/18 08:53 Dose: 220 mg Documented by: [id number] Admin: 08/23/18 07:47 Dose: 220 mg Documented by: [id number] Discontinued Medications Albuterol (Duoneb) 3 ml NEB QIDR [facility] Stop: 09/21/18 11:59 Last Admin: 08/24/18 07:10 Dose: 3 ml Documented by: [id number] Admin: 08/23/18 20:16 Dose: 3 ml Documented by: [id number] Admin: 08/23/18 15:31 Dose: 3 ml Documented by: [id number] Admin: 08/23/18 11:40 Dose: 3 ml Documented by: [id number] Admin: 08/23/18 07:32 Dose: 3 ml Documented by: [id number] Admin: 08/22/18 19:28 Dose: 3 ml Documented by: [id number] Admin: 08/22/18 15:58 Dose: 3 ml Documented by: [id number] Admin: 08/22/18 12:57 Dose: Not Given Documented by: [id number] Furosemide (Lasix) 40 mg PO NOW ONE Stop: 08/23/18 19:45 Last Admin: 08/23/18 20:21 Dose: 40 mg Documented by: [id number] Hydralazine HCl (Hydralazine Hcl) 5 mg IV NOW ONE Stop: 08/22/18 04:57 Last Admin: 08/22/18 05:04 Dose: 5 mg Documented by: [id number] Hydralazine HCl (Apresoline) 12.5 mg PO TID [facility] Stop: 09/21/18 13:59 Last Admin: 08/24/18 14:03 Dose: 12.5 mg Documented by: [id number] Admin: 08/24/18 08:56 Dose: 12.5 mg Documented by: [id number] Admin: 08/23/18 20:38 Dose: 12.5 mg Documented by: [id number] Admin: 08/23/18 13:06 Dose: 12.5 mg Documented by: [id number] Admin: 08/23/18 07:46 Dose: 12.5 mg Documented by: [id number] Admin: 08/22/18 21:51 Dose: 12.5 mg Documented by: [id number] Admin: 08/22/18 13:50 Dose: 12.5 mg Documented by: [id number] Hydralazine HCl (Apresoline) 12.5 mg PO NOW ONE Stop: 08/24/18 16:01 Last Admin: 08/24/18 16:10 Dose: 12.5 mg Documented by: [id number] Acetaminophen (Ofirmev) 1,000 mg in 100 mls @ 400 mls/hr IV NOW ONE Stop: 08/22/18 05:10 Last Infusion: 08/22/18 05:19 Dose: 0 mls/hr Documented by: [id number] Admin: 08/22/18 05:05 Dose: 400 mls/hr Documented by: [id number] Piperacillin Sod/Tazobactam Sod (Zosyn) 4.5 gm in 120 mls @ 240 mls/hr IV NOW ONE Stop: 08/22/18 06:32 Last Infusion: 08/22/18 06:51 Dose: 0 mls/hr Documented by: [id number] Admin: 08/22/18 06:22 Dose: 240 mls/hr Documented by: [id number] Sodium Chloride (Nss 1000ml) 1,000 mls @ 80 mls/hr IV .[id number] [facility] Stop: 08/22/18 23:29 Last Infusion: 08/23/18 00:07 Dose: 0 mls/hr Documented by: [id number] Admin: 08/22/18 12:03 Dose: 80 mls/hr Documented by: [id number] Ceftriaxone Sodium 1,000 mg/ (Dextrose) 50 mls @ 100 mls/hr IV DAILY@1200 [facility]; Protocol Stop: 08/29/18 11:59 Last Infusion: 08/24/18 14:29 Dose: 0 mls/hr Documented by: [id number] Admin: 08/24/18 12:11 Dose: 100 mls/hr Documented by: [id number] Infusion: 08/23/18 13:05 Dose: 0 mls/hr Documented by: [id number] Admin: 08/23/18 12:32 Dose: 100 mls/hr Documented by: [id number] Infusion: 08/22/18 14:22 Dose: 0 mls/hr Documented by: [id number] Admin: 08/22/18 13:51 Dose: 100 mls/hr Documented by: [id number] Azithromycin 500 mg/ Dextrose 255 mls @ 125 mls/hr IV DAILY@1400 [facility] Stop: 08/29/18 13:59 Last Infusion: 08/24/18 16:32 Dose: 0 mls/hr Documented by: [id number] Admin: 08/24/18 14:23 Dose: 125 mls/hr Documented by: [id number] Infusion: 08/23/18 15:02 Dose: 0 mls/hr Documented by: [id number] Admin: 08/23/18 13:08 Dose: 125 mls/hr Documented by: [id number] Infusion: 08/22/18 17:45 Dose: 0 mls/hr Documented by: [id number] Admin: 08/22/18 15:36 Dose: 125 mls/hr Documented by: [id number] Furosemide 20 mg/ Syringe 2 mls @ 4 mls/min IV TODAY@0600 [facility] Stop: 08/23/18 06:30 Last Admin: 08/23/18 06:18 Dose: 4 mls/min Documented by: [id number] Insulin Aspart (Novolog Flexpen) 5 units SC NOW ONE Stop: 08/24/18 18:16 Last Admin: 08/24/18 18:13 Dose: 5 units Documented by: [id number] Cosigned by: [id number] Insulin Glargine (Lantus Solostar Pen) 5 units SC Q12 [facility] Stop: 09/21/18 20:59 Last Admin: 08/24/18 09:08 Dose: 5 units Documented by: [id number] Cosigned by: [id number] Admin: 08/23/18 20:41 Dose: 5 units Documented by: [id number] Cosigned by: [id number] Admin: 08/23/18 07:48 Dose: 5 units Documented by: [id number] Cosigned by: [id number] Admin: 08/22/18 21:54 Dose: 5 units Documented by: [id number] Cosigned by: [id number] Admin: 08/22/18 12:04 Dose: Not Given Documented by: [id number] Cosigned by: [id number] Venlafaxine HCl (Effexor Extended Release) 150 mg PO DAILY [facility] Stop: 09/22/18 08:59 Last Admin: 08/24/18 08:51 Dose: 150 mg Documented by: [id number] Admin: 08/23/18 07:46 Dose: 150 mg Documented by: [id number] Medical Decision Making Differential Diagnosis Differential diagnosis: Etiologies such as viral syndrome, otitis, pharyngitis, pneumonia, influenza, meningitis, urinary tract infection, septic arthritis, soft tissue infectious process, intra-abdominal process, sepsis, bacteremia, as well as others were entertained. Medical Records Attestation: I reviewed the patient's medical records. Home Medications Current Medication List: was personally reviewed by me Laboratory Data Attestation: I reviewed the patient's lab results. Result diagrams: 08/23/18 09:50 08/23/18 09:50 Lab Results 08/22/18 08/22/18 08/22/18 Range/Units 05:07 05:07 05:07 WBC 7.87 (4.8-10.8) K/uL RBC 3.20 L (4.2-5.4) M/uL Hgb 9.7 L (12.0-16.0) g/dL Hct 29.6 L (37-47) % MCV 92.5 (80-100) fL MCH 30.3 (25-34) pg MCHC 32.8 (32-36) g/dL RDW Std Deviation 48.9 H (36.4-46.3) fL RDW Coeff of Rosalba 14.4 (11.5-14.5) % Plt Count 207 (130-400) K/uL MPV 9.1 (7.4-10.4) fL Immature Gran % (Auto) 0.5 % Neut % (Auto) 83.4 % Lymph % (Auto) 8.4 % Petroleum % (Auto) 7.4 % Eos % (Auto) 0.0 % Baso % (Auto) 0.3 % Immature Gran # (Auto) 0.04 H (0.00-0.02) K/uL Neut # (Auto) 6.57 H (1.4-6.5) K/uL Lymph # (Auto) 0.66 L (1.2-3.4) K/uL Petroleum # (Auto) 0.58 (0.11-0.59) K/uL Eos # (Auto) 0.00 (0-0.5) K/uL Baso # (Auto) 0.02 (0-0.2) K/uL Sodium 133 L (136-145) mmol/L Potassium 4.0 (3.5-5.1) mmol/L Chloride 98 (98-107) mmol/L Carbon Dioxide 30 (21-32) mmol/L Anion Gap 5.0 (3-11) BUN 26 H (7-18) mg/dl Creatinine 1.18 (0.6-1.2) mg/dl Est Cr Clr Drug Dosing 35.0 ml/min Est GFR ( Amer) 50.4 Est GFR (Non-Af Amer) 43.5 BUN/Creatinine Ratio 22.2 H (10-20) Glucose 133 H (70-99) mg/dl POC Glucose (70-99) Lactate (0.4-2.0) mmol/L Calcium 8.6 (8.5-10.1) mg/dl Total Bilirubin 0.2 (0.2-1) mg/dl AST 26 (15-37) U/L ALT 30 (12-78) U/L Alkaline Phosphatase 65 (45-117) U/L Troponin I 0.023 (0-0.045) ng/ml Total Protein 6.2 L (6.4-8.2) gm/dl Albumin 2.5 L (3.4-5.0) gm/dl Globulin 3.7 (2.5-4.0) gm/dl Albumin/Globulin Ratio 0.7 L (0.9-2) Specimen Hemolysis Urine Color Urine Appearance (Clear) Urine pH (4.5-7.5) Ur Specific Hudgins (1.000-1.030) Urine Protein (Negative) Urine Glucose (UA) (Negative) Urine Ketones (Negative) Urine Blood (Negative) Urine Nitrite (Negative) Urine Bilirubin (Negative) Urine Urobilinogen (Negative) Ur Leukocyte Esterase (Negative) Urine WBC (Auto) (0-5) /hpf Urine RBC (Auto) (0-4) /hpf U Hyaline Cast (Auto) (0-5) /lpf U Epithel Cells (Auto) (0-5) /lpf Urine Bacteria (Auto) (Negative) Influenza Type A (PCR) Pos for Influ A A* (Neg) Influenza Type B (PCR) Neg for Influ B (Neg) 08/22/18 08/22/18 08/22/18 Range/Units 05:40 05:46 11:58 WBC (4.8-10.8) K/uL RBC (4.2-5.4) M/uL Hgb (12.0-16.0) g/dL Hct (37-47) % MCV (80-100) fL MCH (25-34) pg MCHC (32-36) g/dL RDW Std Deviation (36.4-46.3) fL RDW Coeff of Rosalba (11.5-14.5) % Plt Count (130-400) K/uL MPV (7.4-10.4) fL Immature Gran % (Auto) % Neut % (Auto) % Lymph % (Auto) % Petroleum % (Auto) % Eos % (Auto) % Baso % (Auto) % Immature Gran # (Auto) (0.00-0.02) K/uL Neut # (Auto) (1.4-6.5) K/uL Lymph # (Auto) (1.2-3.4) K/uL Petroleum # (Auto) (0.11-0.59) K/uL Eos # (Auto) (0-0.5) K/uL Baso # (Auto) (0-0.2) K/uL Sodium (136-145) mmol/L Potassium (3.5-5.1) mmol/L Chloride (98-107) mmol/L Carbon Dioxide (21-32) mmol/L Anion Gap (3-11) BUN (7-18) mg/dl Creatinine (0.6-1.2) mg/dl Est Cr Clr Drug Dosing ml/min Est GFR ( Amer) Est GFR (Non-Af Amer) BUN/Creatinine Ratio (10-20) Glucose (70-99) mg/dl POC Glucose 99 (70-99) Lactate 0.7 (0.4-2.0) mmol/L Calcium (8.5-10.1) mg/dl Total Bilirubin (0.2-1) mg/dl AST (15-37) U/L ALT (12-78) U/L Alkaline Phosphatase (45-117) U/L Troponin I (0-0.045) ng/ml Total Protein (6.4-8.2) gm/dl Albumin (3.4-5.0) gm/dl Globulin (2.5-4.0) gm/dl Albumin/Globulin Ratio (0.9-2) Specimen Hemolysis Urine Color Yellow Urine Appearance Clear (Clear) Urine pH >= 9.0 H (4.5-7.5) Ur Specific Hudgins 1.020 (1.000-1.030) Urine Protein 1+ H (Negative) Urine Glucose (UA) Negative (Negative) Urine Ketones Negative (Negative) Urine Blood Negative (Negative) Urine Nitrite Negative (Negative) Urine Bilirubin Negative (Negative) Urine Urobilinogen Negative (Negative) Ur Leukocyte Esterase Negative (Negative) Urine WBC (Auto) 1-5 (0-5) /hpf Urine RBC (Auto) >30 H (0-4) /hpf U Hyaline Cast (Auto) 0 (0-5) /lpf U Epithel Cells (Auto) 5-10 H (0-5) /lpf Urine Bacteria (Auto) Negative (Negative) Influenza Type A (PCR) (Neg) Influenza Type B (PCR) (Neg) 08/22/18 08/22/18 08/23/18 Range/Units 16:31 20:25 07:32 WBC (4.8-10.8) K/uL RBC (4.2-5.4) M/uL Hgb (12.0-16.0) g/dL Hct (37-47) % MCV (80-100) fL MCH (25-34) pg MCHC (32-36) g/dL RDW Std Deviation (36.4-46.3) fL RDW Coeff of Rosalba (11.5-14.5) % Plt Count (130-400) K/uL MPV (7.4-10.4) fL Immature Gran % (Auto) % Neut % (Auto) % Lymph % (Auto) % Petroleum % (Auto) % Eos % (Auto) % Baso % (Auto) % Immature Gran # (Auto) (0.00-0.02) K/uL Neut # (Auto) (1.4-6.5) K/uL Lymph # (Auto) (1.2-3.4) K/uL Petroleum # (Auto) (0.11-0.59) K/uL Eos # (Auto) (0-0.5) K/uL Baso # (Auto) (0-0.2) K/uL Sodium (136-145) mmol/L Potassium (3.5-5.1) mmol/L Chloride (98-107) mmol/L Carbon Dioxide (21-32) mmol/L Anion Gap (3-11) BUN (7-18) mg/dl Creatinine (0.6-1.2) mg/dl Est Cr Clr Drug Dosing ml/min Est GFR ( Amer) Est GFR (Non-Af Amer) BUN/Creatinine Ratio (10-20) Glucose (70-99) mg/dl POC Glucose 199 H 172 H 108 H (70-99) Lactate (0.4-2.0) mmol/L Calcium (8.5-10.1) mg/dl Total Bilirubin (0.2-1) mg/dl AST (15-37) U/L ALT (12-78) U/L Alkaline Phosphatase (45-117) U/L Troponin I (0-0.045) ng/ml Total Protein (6.4-8.2) gm/dl Albumin (3.4-5.0) gm/dl Globulin (2.5-4.0) gm/dl Albumin/Globulin Ratio (0.9-2) Specimen Hemolysis Urine Color Urine Appearance (Clear) Urine pH (4.5-7.5) Ur Specific [place] (1.000-1.030) Urine Protein (Negative) Urine Glucose (UA) (Negative) Urine Ketones (Negative) Urine Blood (Negative) Urine Nitrite (Negative) Urine Bilirubin (Negative) Urine Urobilinogen (Negative) Ur Leukocyte Esterase (Negative) Urine WBC (Auto) (0-5) /hpf Urine RBC (Auto) (0-4) /hpf U Hyaline Cast (Auto) (0-5) /lpf U Epithel Cells (Auto) (0-5) /lpf Urine Bacteria (Auto) (Negative) Influenza Type A (PCR) (Neg) Influenza Type B (PCR) (Neg) 08/23/18 08/23/18 08/23/18 Range/Units 09:50 09:50 11:43 WBC 3.36 L (4.8-10.8) K/uL RBC 3.01 L (4.2-5.4) M/uL Hgb 9.1 L (12.0-16.0) g/dL Hct 28.1 L (37-47) % MCV 93.4 (80-100) fL MCH 30.2 (25-34) pg MCHC 32.4 (32-36) g/dL RDW Std Deviation 49.8 H (36.4-46.3) fL RDW Coeff of Rosalba 14.7 H (11.5-14.5) % Plt Count 203 (130-400) K/uL MPV 8.8 (7.4-10.4) fL Immature Gran % (Auto) % Neut % (Auto) % Lymph % (Auto) % Petroleum % (Auto) % Eos % (Auto) % Baso % (Auto) % Immature Gran # (Auto) (0.00-0.02) K/uL Neut # (Auto) (1.4-6.5) K/uL Lymph # (Auto) (1.2-3.4) K/uL Petroleum # (Auto) (0.11-0.59) K/uL Eos # (Auto) (0-0.5) K/uL Baso # (Auto) (0-0.2) K/uL Sodium 136 (136-145) mmol/L Potassium 3.6 (3.5-5.1) mmol/L Chloride 101 (98-107) mmol/L Carbon Dioxide 32 (21-32) mmol/L Anion Gap 2.0 L (3-11) BUN 22 H (7-18) mg/dl Creatinine 1.12 (0.6-1.2) mg/dl Est Cr Clr Drug Dosing 36.9 ml/min Est GFR ( Amer) 53.7 Est GFR (Non-Af Amer) 46.4 BUN/Creatinine Ratio 19.2 (10-20) Glucose 174 H (70-99) mg/dl POC Glucose 148 H (70-99) Lactate (0.4-2.0) mmol/L Calcium 8.1 L (8.5-10.1) mg/dl Total Bilirubin (0.2-1) mg/dl AST (15-37) U/L ALT (12-78) U/L Alkaline Phosphatase (45-117) U/L Troponin I (0-0.045) ng/ml Total Protein (6.4-8.2) gm/dl Albumin (3.4-5.0) gm/dl Globulin (2.5-4.0) gm/dl Albumin/Globulin Ratio (0.9-2) Specimen Hemolysis Urine Color Urine Appearance (Clear) Urine pH (4.5-7.5) Ur Specific [place] (1.000-1.030) Urine Protein (Negative) Urine Glucose (UA) (Negative) Urine Ketones (Negative) Urine Blood (Negative) Urine Nitrite (Negative) Urine Bilirubin (Negative) Urine Urobilinogen (Negative) Ur Leukocyte Esterase (Negative) Urine WBC (Auto) (0-5) /hpf Urine RBC (Auto) (0-4) /hpf U Hyaline Cast (Auto) (0-5) /lpf U Epithel Cells (Auto) (0-5) /lpf Urine Bacteria (Auto) (Negative) Influenza Type A (PCR) (Neg) Influenza Type B (PCR) (Neg) 08/23/18 08/23/18 08/24/18 Range/Units 16:23 19:54 07:44 WBC (4.8-10.8) K/uL RBC (4.2-5.4) M/uL Hgb (12.0-16.0) g/dL Hct (37-47) % MCV (80-100) fL MCH (25-34) pg MCHC (32-36) g/dL RDW Std Deviation (36.4-46.3) fL RDW Coeff of Rosalba (11.5-14.5) % Plt Count (130-400) K/uL MPV (7.4-10.4) fL Immature Gran % (Auto) % Neut % (Auto) % Lymph % (Auto) % Petroleum % (Auto) % Eos % (Auto) % Baso % (Auto) % Immature Gran # (Auto) (0.00-0.02) K/uL Neut # (Auto) (1.4-6.5) K/uL Lymph # (Auto) (1.2-3.4) K/uL Petroleum # (Auto) (0.11-0.59) K/uL Eos # (Auto) (0-0.5) K/uL Baso # (Auto) (0-0.2) K/uL Sodium (136-145) mmol/L Potassium (3.5-5.1) mmol/L Chloride (98-107) mmol/L Carbon Dioxide (21-32) mmol/L Anion Gap (3-11) BUN (7-18) mg/dl Creatinine (0.6-1.2) mg/dl Est Cr Clr Drug Dosing ml/min Est GFR ( Amer) Est GFR (Non-Af Amer) BUN/Creatinine Ratio (10-20) Glucose (70-99) mg/dl POC Glucose 115 H 134 H 98 (70-99) Lactate (0.4-2.0) mmol/L Calcium (8.5-10.1) mg/dl Total Bilirubin (0.2-1) mg/dl AST (15-37) U/L ALT (12-78) U/L Alkaline Phosphatase (45-117) U/L Troponin I (0-0.045) ng/ml Total Protein (6.4-8.2) gm/dl Albumin (3.4-5.0) gm/dl Globulin (2.5-4.0) gm/dl Albumin/Globulin Ratio (0.9-2) Specimen Hemolysis Urine Color Urine Appearance (Clear) Urine pH (4.5-7.5) Ur Specific Hudgins (1.000-1.030) Urine Protein (Negative) Urine Glucose (UA) (Negative) Urine Ketones (Negative) Urine Blood (Negative) Urine Nitrite (Negative) Urine Bilirubin (Negative) Urine Urobilinogen (Negative) Ur Leukocyte Esterase (Negative) Urine WBC (Auto) (0-5) /hpf Urine RBC (Auto) (0-4) /hpf U Hyaline Cast (Auto) (0-5) /lpf U Epithel Cells (Auto) (0-5) /lpf Urine Bacteria (Auto) (Negative) Influenza Type A (PCR) (Neg) Influenza Type B (PCR) (Neg) 08/24/18 08/24/18 08/24/18 Range/Units 11:34 16:46 16:46 WBC (4.8-10.8) K/uL RBC (4.2-5.4) M/uL Hgb (12.0-16.0) g/dL Hct (37-47) % MCV (80-100) fL MCH (25-34) pg MCHC (32-36) g/dL RDW Std Deviation (36.4-46.3) fL RDW Coeff of Rosalba (11.5-14.5) % Plt Count (130-400) K/uL MPV (7.4-10.4) fL Immature Gran % (Auto) % Neut % (Auto) % Lymph % (Auto) % Petroleum % (Auto) % Eos % (Auto) % Baso % (Auto) % Immature Gran # (Auto) (0.00-0.02) K/uL Neut # (Auto) (1.4-6.5) K/uL Lymph # (Auto) (1.2-3.4) K/uL Petroleum # (Auto) (0.11-0.59) K/uL Eos # (Auto) (0-0.5) K/uL Baso # (Auto) (0-0.2) K/uL Sodium (136-145) mmol/L Potassium (3.5-5.1) mmol/L Chloride (98-107) mmol/L Carbon Dioxide (21-32) mmol/L Anion Gap (3-11) BUN (7-18) mg/dl Creatinine (0.6-1.2) mg/dl Est Cr Clr Drug Dosing ml/min Est GFR ( Amer) Est GFR (Non-Af Amer) BUN/Creatinine Ratio (10-20) Glucose (70-99) mg/dl POC Glucose 316 H 398 H* 389 H* (70-99) Lactate (0.4-2.0) mmol/L Calcium (8.5-10.1) mg/dl Total Bilirubin (0.2-1) mg/dl AST (15-37) U/L ALT (12-78) U/L Alkaline Phosphatase (45-117) U/L Troponin I (0-0.045) ng/ml Total Protein (6.4-8.2) gm/dl Albumin (3.4-5.0) gm/dl Globulin (2.5-4.0) gm/dl Albumin/Globulin Ratio (0.9-2) Specimen Hemolysis Urine Color Urine Appearance (Clear) Urine pH (4.5-7.5) Ur Specific Hudgins (1.000-1.030) Urine Protein (Negative) Urine Glucose (UA) (Negative) Urine Ketones (Negative) Urine Blood (Negative) Urine Nitrite (Negative) Urine Bilirubin (Negative) Urine Urobilinogen (Negative) Ur Leukocyte Esterase (Negative) Urine WBC (Auto) (0-5) /hpf Urine RBC (Auto) (0-4) /hpf U Hyaline Cast (Auto) (0-5) /lpf U Epithel Cells (Auto) (0-5) /lpf Urine Bacteria (Auto) (Negative) Influenza Type A (PCR) (Neg) Influenza Type B (PCR) (Neg) 08/24/18 08/25/18 Range/Units 20:29 02:37 WBC (4.8-10.8) K/uL RBC (4.2-5.4) M/uL Hgb (12.0-16.0) g/dL Hct (37-47) % MCV (80-100) fL MCH (25-34) pg MCHC (32-36) g/dL RDW Std Deviation (36.4-46.3) fL RDW Coeff of Rosalba (11.5-14.5) % Plt Count (130-400) K/uL MPV (7.4-10.4) fL Immature Gran % (Auto) % Neut % (Auto) % Lymph % (Auto) % Petroleum % (Auto) % Eos % (Auto) % Baso % (Auto) % Immature Gran # (Auto) (0.00-0.02) K/uL Neut # (Auto) (1.4-6.5) K/uL Lymph # (Auto) (1.2-3.4) K/uL Petroleum # (Auto) (0.11-0.59) K/uL Eos # (Auto) (0-0.5) K/uL Baso # (Auto) (0-0.2) K/uL Sodium (136-145) mmol/L Potassium (3.5-5.1) mmol/L Chloride (98-107) mmol/L Carbon Dioxide (21-32) mmol/L Anion Gap (3-11) BUN (7-18) mg/dl Creatinine (0.6-1.2) mg/dl Est Cr Clr Drug Dosing ml/min Est GFR ( Amer) Est GFR (Non-Af Amer) BUN/Creatinine Ratio (10-20) Glucose (70-99) mg/dl POC Glucose 102 H 110 H (70-99) Lactate (0.4-2.0) mmol/L Calcium (8.5-10.1) mg/dl Total Bilirubin (0.2-1) mg/dl AST (15-37) U/L ALT (12-78) U/L Alkaline Phosphatase (45-117) U/L Troponin I (0-0.045) ng/ml Total Protein (6.4-8.2) gm/dl Albumin (3.4-5.0) gm/dl Globulin (2.5-4.0) gm/dl Albumin/Globulin Ratio (0.9-2) Specimen Hemolysis Urine Color Urine Appearance (Clear) Urine pH (4.5-7.5) Ur Specific Hudgins (1.000-1.030) Urine Protein (Negative) Urine Glucose (UA) (Negative) Urine Ketones (Negative) Urine Blood (Negative) Urine Nitrite (Negative) Urine Bilirubin (Negative) Urine Urobilinogen (Negative) Ur Leukocyte Esterase (Negative) Urine WBC (Auto) (0-5) /hpf Urine RBC (Auto) (0-4) /hpf U Hyaline Cast (Auto) (0-5) /lpf U Epithel Cells (Auto) (0-5) /lpf Urine Bacteria (Auto) (Negative) Influenza Type A (PCR) (Neg) Influenza Type B (PCR) (Neg) Imaging Data Attestation: I personally reviewed and interpreted this imaging study as follows: My Impression: CHEST X-RAY: The results were interpreted by me. Right middle lobe infiltrate. No previous for comparison. Radiologist's Impression: Radiology results as stated below per my review and the radiologist's interpretation: CT HEAD: Comparison: None IMPRESSION: No midline shift, hemorrhage, or CT evidence of acute territorial infarction. Volume loss, chronic microvascular ischemic change, chronic right frontal white matter infarct, and age-indeterminate but chronic appearing bilateral thalamic lacunar infarcts. Small sphenoid sinus fluid level. Correlate for sphenoid sinusitis. No depressed calvarial fracture. INCIDENTAL FINDINGS: TMJ degenerative change. Radiologist: Rufino Azul MD Study ready at 06:00 and initial results transmitted at 06:15. CT CHEST Without Contrast: Comparison: Concurrent chest x-ray. IMPRESSION: Loculated fluid in the right major fissure largely accounts for the opacity on chest x-ray. Small basilar effusions are also present bilaterally. Streaky perihilar/infrhilar and dependent lower lobe opacities may reflect atele ctasis. Consolidation not excluded. Correlate clincally. Atherosclerosis without thoracic aneurysm or pericardial effusion. No pneumothorax. INCIDENTAL FINDINGS: Small sliding hiatus hernia. Enlarged main pulmonary artery. Prior mitral annular repair. Prior cholecystectomy/sphincterotomy with pneumobilia. Post surgical change in the right breast. Spondylosis, similar to the findings, and interspinous ligament calcification may reflect underlying seronegative spondyloarthropathy. Correlate clinically. Radiologist: Rufino Azul MD Study ready at 05:59 and initial results transmitted at 06:23. Blood Pressure Blood Pressure Findings: Elevated blood pressure Blood Pressure Disposition: further management by hospitalist MDM Narrative This pt was evaluated and appeared to be ill but in no distress. IV access was obtained and lab work was drawn. PT was noted to be hypertensive, medicated with hydralazine 5 mg IV. Lab work reveals leukopenia, anemia. CXR is concerning for consolidative changes. non-contrast CT was ordered and is significant for pl effusion, small infiltrate and fluid in major fissures. Pt was medicated with IV zosyn after blood cultures were obtained. Influenza swab was positive. Pt was informed of the findings. She was d/w the hospitalist service for further management. He will RTED for worsening of symptoms or any medical con cerns. Impression & Plan Influenza A, Loculated pleural effusion Discharge Plan Visit Data *Final* Discharge Date/Time: 08/22/18 11:32 Chief Complaint: Illness Stated Complaint: ILLNESS ED Provider: Lorena Silva Discharge Problem: Influenza A, Loculated pleural effusion Patient Disposition: Admitted As Inpatient Discharge Instructions Interventions: ED Discharge Assessment Last Done: 08/22/18 11:32 The scribe's documentation has been prepared under my direction and personally reviewed by me in its entirety. I confirm that the note above accurately reflects all work, treatment, procedures, and medical decision making performed by me.
--- NOTE | 2018-08-22 08:00 | CT Scan Report ---
CT SCAN OF THE CHEST WITHOUT IV CONTRAST CLINICAL HISTORY: Right middle lobe consolidation. COMPARISON STUDY: Chest x-ray dated 08/22/2018. TECHNIQUE: CT scan of the thorax was performed from the thoracic inlet to the upper abdomen. Images are reviewed in the axial, sagittal, and coronal planes. IV contrast was not administered for this ex amination as per the referring clinician. A dose lowering technique was utilized adhering to the [facility]. The examination is degraded by motion artifact, as well as by streak artifact from the arms which could not be elevated above the chest. CT DOSE: 731.77 mGy.cm FINDINGS: Thyroid: Imaged portions of the thyroid gland are normal in size and heterogeneous and attenuation. Thoracic aorta: There is atherosclerotic calcification of the thoracic aorta, which is normal in gerry christine and demonstrates bovine variant arch anatomy. Heart: The heart is enlarged and without pericardial effusion. There is evidence of previous mitral v alve surgery. Epicardial pacing leads are noted. The coronary arteries are densely calcified. The pul monary trunk is dilated measuring 3.7 cm in diameter. This suggests pulmonary artery hypertension. Lungs and pleural spaces: Diffuse intralobular septal thickening indicates congestive failure. There are small bilateral pleural effusions with associated atelectasis. Loculated fluid is present along t he major fissures, right greater than left. There is a 4 mm right apical nodule seen on image #59. Th e trachea and central airways are clear. Mediastinum: There is mediastinal lymphadenopathy. A high pretracheal node measures 1.4 x 1.6 cm. Pre vascular nodes measure up to 11 mm in short axis. A precarinal node on image #91 measures 1.9 x 1.7 c m. Ashwini: Not well assessed without IV contrast. Axillae: There are shotty axillary nodes. Upper abdomen: There is a moderate hiatal hernia. There is pneumobilia, as well as gas in the common bile duct. This is likely on a postoperative basis. Skeletal structures: The skeletal structures are osteopenic. 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 No lytic or blastic bony lesions are seen. IMPRESSION: 1. Streak and motion compromised examination. 2. Cardiomegaly with evidence of congestive failure. 3. There are small pleural effusions with bibasilar atelectasis. Loculated fluid is present along the major fissures, right greater than left. This likely corresponds to the right middle lobe consolidat ion seen by x-ray. 4. There is nonspecific mediastinal lymphadenopathy. 5. There is a 4 mm nodule the right apex. This is pathologically indeterminant but of low suspicion a nd can be followed if clinically warranted. 6. Additional findings as above. Electronically signed by: Gerald Perera M.D. 08/22/2018 7:58 AM
[2018-08-22] MEDS ORDERED: SODIUM CHLORIDE 0.9% 1000ML 1,000 ML IV SCH (11:00)
[2018-08-22] MEDS ORDERED: CARBOHYDRATES FOR HYPOGLYCEMIA PO PRN (11:50)
[2018-08-22] MEDS ORDERED: GLUCOSE 40% GEL 15 GM TUBE PO PRN (11:50)
[2018-08-22] MEDS ORDERED: TRAMADOL HCL 50 MG TABLET PO PRN (11:50)
[2018-08-22] MEDS ORDERED: GLUCOSE 10 TABS/TUBE PO PRN (11:50)
[2018-08-22] MEDS ORDERED: GLUCAGON FOR INJ 1 MG VIAL SQ PRN (11:50)
[2018-08-22] MEDS ORDERED: DEXTROSE 50% 50 ML SYRINGE IV PRN (11:50)
[2018-08-22] MEDS: INSULIN GLARGINE SOLOSTAR 100 UNITS/ML 3 ML PEN SC SCH ×2 (12:04→21:54)
[2018-08-22] MEDS: ACETAMINOPHEN 325 MG TAB PO PRN (12:13)
[2018-08-22] MEDS: ALBUT/IPRATROP 3MG/0.5MG NEB 3 ML VIAL NEB SCH ×3 (12:57→19:28)
--- NOTE | 2018-08-22 13:42 | History & Physical Report ---
Date of Service August 22, 2018 Assessment & Plan (1) Influenza A: -[facility] -Patient presenting from home with generalized weakness and fever, in the ED found to be positive for influenza A -On arrival, low-grade temp at 37.9, do not suspect sepsis -Started on Tamiflu yesterday as an outpatient, will continue (renally dosed) -CT chest showing bilateral loculated pleural effusions; given rhonchi on exam, will start empiric ceftriaxone and azithromycin -Nebulizer treatments -Gentle IVF -PT/OT evals (2) Depression: -Patient reporting increasing depression over the past few months -As an outpatient, Effexor was increased however this is caused patient to have poor appetite and dry mouth -No suicidal or homicidal thoughts -Mental health consult (3) History of pleural effusion: -History of bilateral, recurrent pleural effusions status post multiple thoracenteses -CT chest demonstrates small bilateral loculated effusions today (4) Diabetes mellitus, type II: -Hgb A1c 9.6 06/2018 -Hold oral agents and utilize Lantus and NovoLog per protocol while hospitalized (5) CVA (cerebral vascular accident): -Continue Plavix and statin (6) Chronic diastolic CHF (congestive heart failure): -Patient appears to be intravascularly dry today on exam with dry mucous membranes, recent poor p.o. intake -Hold diuretics for today, giving gentle IVF -Monitor volume status closely (7) Iron deficiency anemia: (8) Anemia due to chronic kidney disease: -Hgb at baseline, continue iron replacement (9) CAD (coronary artery disease): -Stable, no reports chest pain -Continue Plavix, beta-opal, statin (10) Chronic kidney disease (CKD), stage III (moderate): - baseline creat runs in the low ones - creat noted to be 1.1 today - continue to monitor, avoid nephrotoxic agents when able (11) Hypertension: -BP elevated on arrival, likely secondary to missing home medications today -Received 1 dose of IV hydralazine in the ED with improvement in BP -Continue home doses of hydralazine, carvedilol for now and make adjustments as needed (12) GERD (gastroesophageal reflux disease): -Continue H2 opal (13) Hypothyroidism: -Continue levothyroxine (14) DVT prophylaxis: -SQ heparin History of Present Illness Chief Complaint: Generalized weakness Primary Care Provider: Suzanne Garciaery 82-year-old female who presents to the ED with generalized weakness. Daughter is the bedside who provides some information. The weakness began yesterday and patient was evaluated at home by a [facility] team. There was suspicion for possible UTI and influenza and patient was empirically started on ciprofloxacin and Tamiflu. Throughout the night, patient was having a lot of difficulty getting out of bed to go to the bathroom. Daughter reports she felt very warm however did not take her temperature. EMS was then called and patient was brought to the ED for further evaluation. Patient reports a dry, nonproductive cough that began yesterday. She denies chest pain and shortness of breath. She has chronic lower extremity edema which is unchanged from baseline. No lightheadedness, dizziness, diaphoresis, syncopal events. No unilateral weakness, numbness, tingling, slurred speech, facial droop. Patient has had a very poor appetite recently and dry mouth however denies abdominal pain, nausea, vomiting, diarrhea. No urinary symptoms. Patient also reports depression for the past few months. She denies suicidal or homicidal thoughts. Patient's Effexor was increased a couple of weeks ago however this is caused the patient to have a dry mouth and poor appetite. In the ED, patient tested positive for influenza A. CT chest shows bilateral loculated pleural effusions. BP was elevated on arrival and patient received a dose of IV hydralazine. She also received IV Zosyn and IV acetaminophen. Allergies Allergy/AdvReac Type Severity Reaction Status Date / Time No Known Allergies Allergy Unverified 08/22/18 08:40 Home Medications Home Medications Medication Instructions Recorded Confirmed Type ascorbic acid (vitamin C) [Vitamin 500 mg PO DAILY 08/22/18 08/22/18 History C] calcium carbonate [Calcium 600] 600 mg PO DAILY 08/22/18 08/22/18 History carvedilol 25 mg PO BID 08/22/18 08/22/18 History cholecalciferol (vitamin D3) 2,000 unit PO DAILY 08/22/18 08/22/18 History [Vitamin D3] clopidogrel [Plavix] 75 mg PO DAILY 08/22/18 08/22/18 History ferrous sulfate 325 mg PO DAILY 08/22/18 08/22/18 History furosemide 20 mg PO DAILY PRN 08/22/18 08/22/18 History furosemide 40 mg PO DAILY 08/22/18 08/22/18 History hydralazine 12.5 mg PO TID 08/22/18 08/22/18 History insulin glargine [Lantus Solostar 12 unit SUBCUT DAILY 08/22/18 08/22/18 History U-100 Insulin] levothyroxine 200 mcg PO DAILY 08/22/18 08/22/18 History magnesium oxide 400 mg PO TID 08/22/18 08/22/18 History metformin 1,000 mg PO BID 08/22/18 08/22/18 History multivitamin 1 tab PO DAILY 08/22/18 08/22/18 History ranitidine HCl 150 mg PO BID 08/22/18 08/22/18 History tramadol 50 mg PO HS PRN 08/22/18 08/22/18 History venlafaxine 150 mg PO DAILY 08/22/18 08/22/18 History vitamin A 10,000 unit PO DAILY 08/22/18 08/22/18 History zinc sulfate 220 mg PO DAILY 08/22/18 08/22/18 History Past Med/Surg History Medical History CVA (cerebral vascular accident) (Chronic) Iron deficiency anemia (Chronic) Anemia due to chronic kidney disease (Chronic) Chronic diastolic CHF (congestive heart failure) (Chronic) CAD (coronary artery disease) (Chronic) Cardiac cath 2011 demonstrated nonobstructive disease Diabetic polyneuropathy (Chronic) Diabetes mellitus, type II (Chronic) Hypothyroidism (Chronic) GERD (gastroesophageal reflux disease) (Chronic) Dyslipidemia (Chronic) Hypertension (Chronic) Venous insufficiency of both lower extremities (Chronic) Depression (Chronic) Chronic kidney disease (CKD), stage III (moderate) (Chronic) Osteoporosis (Chronic) History of pleural effusion (Chronic) With multiple thoracentesis Surgical History S/P patent foramen ovale closure (Chronic) Status post hysterectomy (Chronic) Status post cholecystectomy (Chronic) Status post cataract extraction (Chronic) Status post mitral valve repair (Chronic) Family History Other Family history non-contributory Social History Communication Ability: Effective Beliefs That Will Affect Care: None marital status: Current Living Situation: Spouse and Family current occupational status: retired Other Information That Helps Us Care for You: No Feels Safe at Home: Yes Safety Concerns: Feels Safe At This Time Smoking Status: Never smoker Hx Alcohol Use: No Hx Substance Use: No Review of Systems ROS per HPI, all other systems reviewed and negative Physical Exam Vital Signs (Past 24 Hours): Last Vital Signs Temp 37.4 C 08/22/18 11:48 Pulse 74 08/22/18 11:48 Resp 16 08/22/18 11:48 BP 171/67 H 08/22/18 11:48 Pulse Ox 93 08/22/18 11:48 Constitutional: WD/WN, vitals as above Eyes: PERRL, conjunctivae normal, anicteric sclerae ENMT: Ears: no external ear abnormality Nose: no external nose abnormality Mouth: + dry oral mucous membranes Respiratory: normal respiratory effort; no respiratory distress Auscultation: + rhonchi (Scattered) and + wheezes (Scattered, expiratory) Cardiovascular: Rate/Rhythm: regular rate and regular rhythm Vessels: normal peripheral pulses Extremities: + edema (+2-3 edema LLE, +1-2 edema RLE (chronic)) Gastrointestinal (Abdomen): normal bowel sounds, soft, nontender, no hepatosplenomegaly Musculoskeletal: Extremities: no cyanosis and no clubbing Generally weak, strength 4/5 throughout all extremities Skin: no rashes, warm and dry Neurologic: PERRL, EOMI, accommodation nl, no face palsy, no dysarthria Psychiatric: Orientation: alert and oriented x 3 Affect: + depressed affect Results & Data Laboratory Results Laboratory Last Values WBC 7.87 K/uL (4.8-10.8) 08/22/18 05:07 RBC 3.20 M/uL (4.2-5.4) L 08/22/18 05:07 Hgb 9.7 g/dL (12.0-16.0) L 08/22/18 05:07 Hct 29.6 % (37-47) L 08/22/18 05:07 MCV 92.5 fL (80-100) 08/22/18 05:07 MCH 30.3 pg (25-34) 08/22/18 05:07 MCHC 32.8 g/dL (32-36) 08/22/18 05:07 RDW Std Deviation 48.9 fL (36.4-46.3) H 08/22/18 05:07 RDW Coeff of Rosalba 14.4 % (11.5-14.5) 08/22/18 05:07 Plt Count 207 K/uL (130-400) 08/22/18 05:07 MPV 9.1 fL (7.4-10.4) 08/22/18 05:07 Immature Gran % (Auto) 0.5 % 08/22/18 05:07 Neut % (Auto) 83.4 % 08/22/18 05:07 Lymph % (Auto) 8.4 % 08/22/18 05:07 Ware % (Auto) 7.4 % 08/22/18 05:07 Eos % (Auto) 0.0 % 08/22/18 05:07 Baso % (Auto) 0.3 % 08/22/18 05:07 Immature Gran # (Auto) 0.04 K/uL (0.00-0.02) H 08/22/18 05:07 Neut # (Auto) 6.57 K/uL (1.4-6.5) H 08/22/18 05:07 Lymph # (Auto) 0.66 K/uL (1.2-3.4) L 08/22/18 05:07 Ware # (Auto) 0.58 K/uL (0.11-0.59) 08/22/18 05:07 Eos # (Auto) 0.00 K/uL (0-0.5) 08/22/18 05:07 Baso # (Auto) 0.02 K/uL (0-0.2) 08/22/18 05:07 Sodium 133 mmol/L (136-145) L 08/22/18 05:07 Potassium 4.0 mmol/L (3.5-5.1) 08/22/18 05:07 Chloride 98 mmol/L (98-107) 08/22/18 05:07 Carbon Dioxide 30 mmol/L (21-32) 08/22/18 05:07 Anion Gap 5.0 (3-11) 08/22/18 05:07 BUN 26 mg/dl (7-18) H 08/22/18 05:07 Creatinine 1.18 mg/dl (0.6-1.2) 08/22/18 05:07 Est Cr Clr Drug Dosing 35.0 ml/min 08/22/18 05:07 Est GFR ( Amer) 50.4 08/22/18 05:07 Est GFR (Non-Af Amer) 43.5 08/22/18 05:07 BUN/Creatinine Ratio 22.2 (10-20) H 08/22/18 05:07 Glucose 133 mg/dl (70-99) H 08/22/18 05:07 Lactate 0.7 mmol/L (0.4-2.0) 08/22/18 05:46 Calcium 8.6 mg/dl (8.5-10.1) 08/22/18 05:07 Total Bilirubin 0.2 mg/dl (0.2-1) 08/22/18 05:07 AST 26 U/L (15-37) 08/22/18 05:07 ALT 30 U/L (12-78) 08/22/18 05:07 Alkaline Phosphatase 65 U/L (45-117) 08/22/18 05:07 Troponin I 0.023 ng/ml (0-0.045) 08/22/18 05:07 Total Protein 6.2 gm/dl (6.4-8.2) L 08/22/18 05:07 Albumin 2.5 gm/dl (3.4-5.0) L 08/22/18 05:07 Globulin 3.7 gm/dl (2.5-4.0) 08/22/18 05:07 Albumin/Globulin Ratio 0.7 (0.9-2) L 08/22/18 05:07 Specimen Hemolysis 08/22/18 05:07 Urine Color Yellow 08/22/18 05:40 Urine Appearance Clear (Clear) 08/22/18 05:40 Urine pH >= 9.0 (4.5-7.5) H 08/22/18 05:40 Ur Specific Dresher 1.020 (1.000-1.030) 08/22/18 05:40 Urine Protein 1+ (Negative) H 08/22/18 05:40 Urine Glucose (UA) Negative (Negative) 08/22/18 05:40 Urine Ketones Negative (Negative) 08/22/18 05:40 Urine Blood Negative (Negative) 08/22/18 05:40 Urine Nitrite Negative (Negative) 08/22/18 05:40 Urine Bilirubin Negative (Negative) 08/22/18 05:40 Urine Urobilinogen Negative (Negative) 08/22/18 05:40 Ur Leukocyte Esterase Negative (Negative) 08/22/18 05:40 Urine WBC (Auto) 1-5 /hpf (0-5) 08/22/18 05:40 Urine RBC (Auto) >30 /hpf (0-4) H 08/22/18 05:40 U Hyaline Cast (Auto) 0 /lpf (0-5) 08/22/18 05:40 U Epithel Cells (Auto) 5-10 /lpf (0-5) H 08/22/18 05:40 Urine Bacteria (Auto) Negative (Negative) 08/22/18 05:40 Influenza Type A (PCR) Pos for Influ A (Neg) A* 08/22/18 05:07 Influenza Type B (PCR) Neg for Influ B (Neg) 08/22/18 05:07 Diagnostic Findings CXR IMPRESSION: 1. Mild cardiomegaly without overt pulmonary edema. 2. Trace pleural effusions with bibasilar and right midlung airspace opacities. Please refer to chest CT of same day for further details. Head CT Impression: 1. No acute intracranial abnormality. 2. Atrophy and chronic small vessel change. 3. Trace fluid within the sphenoid sinus. CT CHEST IMPRESSION: 1. Streak and motion compromised examination. 2. Cardiomegaly with evidence of congestive failure. 3. There are small pleural effusions with bibasilar atelectasis. Loculated fluid is present along the major fissures, right greater than left. This likely corresponds to the right middle lobe consolidation seen by x-ray. 4. There is nonspecific mediastinal lymphadenopathy. 5. There is a 4 mm nodule the right apex. This is pathologically indeterminant but of low suspicion and can be followed if clinically warranted. 6. Additional findings as above. Code Status & VTE Plan Code Status Patient is a full code as per my discussion with her and her daughter who is the bedside. VTE Prophylaxis Plan VTE Prophylaxis will be ordered: Yes Supervising Physician Co-Signing Physician Notes ATTENDING ADDENDUM: 82 yo F presented m home with generalized weakness and fever , in the ED found to be positive for influenza A/low grade Temp 37.9 no evidence of sepsis Tamiflu/IV fluid ( pt had Flu shot this year ) Droplet precaution -CT chest showing bilateral loculated pleural effusions; empiric ceftriaxone and azithromycin for possible community acquired pneumonia -Nebulizer treatments FULL CODE PT/OT eval for generalized weakness /functional deconditioning Michaelle Padilla MD
[2018-08-22] MEDS: OSELTAMIVIR PHOSPHATE 30 MG PO SCH ×2 (13:49→21:52)
[2018-08-22] MEDS: INSULIN ASPART 100 UNITS/ML 3 ML PEN SC SCH ×3 (13:51→21:55)
[2018-08-22] MEDS: cefTRIAXone SODIUM 1,000 MG in DEXTROSE 5% 50 ML IV SCH (13:51)
[2018-08-22] MEDS: HEPARIN SOD 5,000 UNIT/0.5 ML VIAL SQ SCH ×2 (13:52→21:54)
[2018-08-22] MEDS: AZITHROMYCIN 500 MG in DEXTROSE 5% 250 ML IV SCH (15:36)
[2018-08-22] MEDS: MAGNESIUM OXIDE 400 MG TAB PO SCH ×2 (15:38→21:52)
[2018-08-22] MEDS: CARVEDILOL 25 MG TAB PO SCH (21:52)
[2018-08-23] MEDS: LEVOTHYROXINE SODIUM 200 MCG TABLET PO SCH (05:33)
[2018-08-23] MEDS: HEPARIN SOD 5,000 UNIT/0.5 ML VIAL SQ SCH ×3 (05:33→20:40)
[2018-08-23] MEDS ORDERED: FUROSEMIDE 20 MG in SYRINGE 0 ML IV SCH (06:00)
[2018-08-23] MEDS: ALBUT/IPRATROP 3MG/0.5MG NEB 3 ML VIAL NEB SCH ×4 (07:32→20:16)
[2018-08-23] MEDS: OSELTAMIVIR PHOSPHATE 30 MG PO SCH ×2 (07:45→20:42)
[2018-08-23] MEDS: MAGNESIUM OXIDE 400 MG TAB PO SCH ×3 (07:46→20:39)
[2018-08-23] MEDS: CLOPIDOGREL BISULFATE 75 MG TAB PO SCH (07:46)
[2018-08-23] MEDS: VENLAFAXINE HCL XR 150 MG CAPXR PO SCH (07:46)
[2018-08-23] MEDS: MULTIVITAMIN TAB PO SCH (07:46)
[2018-08-23] MEDS: CARVEDILOL 25 MG TAB PO SCH ×2 (07:47→20:40)
[2018-08-23] MEDS: ASCORBIC ACID 500 MG TAB PO SCH (07:47)
[2018-08-23] MEDS: CALCIUM 600MG + VIT D 400 IU TAB PO SCH (07:47)
[2018-08-23] MEDS: FERROUS SULFATE 325 MG TAB PO SCH (07:47)
[2018-08-23] MEDS: ZINC SULFATE 220 MG CAPSULE PO SCH (07:47)
[2018-08-23] MEDS: CHOLECALCIFEROL 1,000 UNITS TAB PO SCH (07:47)
[2018-08-23] MEDS: INSULIN GLARGINE SOLOSTAR 100 UNITS/ML 3 ML PEN SC SCH ×2 (07:48→20:41)
[2018-08-23] MEDS: INSULIN ASPART 100 UNITS/ML 3 ML PEN SC SCH ×4 (07:48→20:42)
[2018-08-23] MEDS ORDERED: VITAMIN A 10000 UNIT PO SCH (09:00)
--- NOTE | 2018-08-23 09:40 | Psychiatric Consultation ---
Date of Consultation August 23, 2018 Impression / Recommendations Impression 82-year-old female admitted medically with generalized weakness reporting worsening depression for the past month. Pt is reported to be taking 150mg of venlafaxine ER currently. Side effects to titration had been reported, patient unable to recall specific concerns. It is unclear is side effects are to her current dose or if her dose had been reduced to a previously tolerated amount. While alert and oriented, patient does appear to have difficulty recalling meaningful history related to her recent depressive symptoms or medication changes. It was offered that this provider return when her daughters are present, she is grateful for this offer and accepts. Would suggest continuing current home medication dosage, will attempt to gather collateral information from daughters to make a more informed decision regarding medication changes. Dr. Mary Ann Oglesby was directly involved in review and discussion of the patient's case and participated in medical decision making regarding treatment recommen dations. (1) Depression: 08/23 - Gather collateral information from daughters - For now, continue current home antidepressant medication and dosage - Will reassess with daughters present Risk Factors Assessment Do You Have Access To A Gun?: No CPT Code Initial Consultation: [id number] Psych History Identifying Data 82-year-old female admitted medically with generalized weakness, suspected UTI and influenza. Psychiatric consult requested as patient reported depression worsening for the past month. Information on initial assessment is gathered from the patient who is a limited historian and is not considered to be reliable. Chief Complaint "I've been very weak for a long time, like over a year". History of Present Illness Jemma Gunter is an 82-year-old female admitted medically after presenting to the ED with generalized weakness. Suspicion from home assessment was for flu or UTI. Pt is being treated medically for findings of pleural effusion and testing positive for influenza A. Pt was seen on psychiatric consult service to assess for reports of worsening depression for the past month. It is reported that the patient dose of venlafaxine ER was being titrated outpatient, and she admitted to side effects with higher dosing. Pt was last seen on our consult service in 01/2018 by ELIAS Urbna. Pt is sitting up in bed upon this provider's entrance to the room. She states that she is continuing to feel weak and admits to being a bit confused. She is slowly able to recall previous admissions for weakness, and a history of 60lb weight loss over the past year. Pt states she has had difficulty with appetite - but unclear if current or remote history at time of last assessment. Patient is admittedly confused and reports that her daughters would be able to provide a better history. At this time, patient is unable to recall her current antidepressant medication, the dose, or what side effects she has been experiencing with titration. Pt was offered for this provider to return when her daughters are present and she was agreeable to this. She denies any current concerns. Past Psychiatric History Previous Psych History: Outpatient management of antidepressant medications by PCP. Seen last in 07/2017 and 01/2018 on our consult service with medication changes. Current Psychiatric Diagnosis: depression Outpatient Services: None presently Previous Psych Admissions: None Do You Have Access To A Gun?: No Allergies Allergy/AdvReac Type Severity Reaction Status Date / Time No Known Allergies Allergy Unverified 08/22/18 08:40 Home Medications Home Medications Medication Instructions Recorded Confirmed Type ascorbic acid (vitamin C) [Vitamin 500 mg PO DAILY 08/22/18 08/22/18 History C] calcium carbonate [Calcium 600] 600 mg PO DAILY 08/22/18 08/22/18 History carvedilol 25 mg PO BID 08/22/18 08/22/18 History cholecalciferol (vitamin D3) 2,000 unit PO DAILY 08/22/18 08/22/18 History [Vitamin D3] clopidogrel [Plavix] 75 mg PO DAILY 08/22/18 08/22/18 History ferrous sulfate 325 mg PO DAILY 08/22/18 08/22/18 History furosemide 20 mg PO DAILY PRN 08/22/18 08/22/18 History furosemide 40 mg PO DAILY 08/22/18 08/22/18 History hydralazine 12.5 mg PO TID 08/22/18 08/22/18 History insulin glargine [Lantus Solostar 12 unit SUBCUT DAILY 08/22/18 08/22/18 History U-100 Insulin] levothyroxine 200 mcg PO DAILY 08/22/18 08/22/18 History magnesium oxide 400 mg PO TID 08/22/18 08/22/18 History metformin 1,000 mg PO BID 08/22/18 08/22/18 History multivitamin 1 tab PO DAILY 08/22/18 08/22/18 History ranitidine HCl 150 mg PO BID 08/22/18 08/22/18 History tramadol 50 mg PO HS PRN 08/22/18 08/22/18 History venlafaxine 150 mg PO DAILY 08/22/18 08/22/18 History vitamin A 10,000 unit PO DAILY 08/22/18 08/22/18 History zinc sulfate 220 mg PO DAILY 08/22/18 08/22/18 History Personal History Beliefs That Will Affect Care: None Patient History Medical History CVA (cerebral vascular accident) (Chronic) Iron deficiency anemia (Chronic) Anemia due to chronic kidney disease (Chronic) Chronic diastolic CHF (congestive heart failure) (Chronic) CAD (coronary artery disease) (Chronic) Cardiac cath 2011 demonstrated nonobstructive disease Diabetic polyneuropathy (Chronic) Diabetes mellitus, type II (Chronic) Hypothyroidism (Chronic) GERD (gastroesophageal reflux disease) (Chronic) Dyslipidemia (Chronic) Hypertension (Chronic) Venous insufficiency of both lower extremities (Chronic) Depression (Chronic) Chronic kidney disease (CKD), stage III (moderate) (Chronic) Osteoporosis (Chronic) History of pleural effusion (Chronic) With multiple thoracentesis Surgical History S/P patent foramen ovale closure (Chronic) Status post hysterectomy (Chronic) Status post cholecystectomy (Chronic) Status post cataract extraction (Chronic) Status post mitral valve repair (Chronic) Family History Other Family history non-contributory Social History Communication Ability: Effective Beliefs That Will Affect Care: None marital status: Current Living Situation: Spouse and Family current occupational status: retired Other Information That Helps Us Care for You: No Feels Safe at Home: Yes Safety Concerns: Feels Safe At This Time Smoking Status: Never smoker Hx Alcohol Use: No Hx Substance Use: No Physical Exam Psychiatric Orientation: alert, oriented x 3 (guessed date as "the ?") and cooperative (but limited historian) Apperance: appropriately dressed (in hospital gown), appropriately groomed and appeared stated age Eye Contact: good eye contact Motor Behavior: no abnormal motor movements (observed while laying in bed) soft tone, slow speech, short responses to questions Affect: + blunted affect Mood: + depressed mood Thought Process: + circumstantial thought process (difficulty answering questions clearly) Thought Content: reality based without delusions Suicidal Thoughts: denies suicidal thoughts Homicidal Thoughts: denies homicidal thoughts Hallucinations: no auditory hallucinations and no visual hallucinations Cognition: remote memory grossly intact, attention grossly intact and language grossly intact; + recent memory not intact (unable to recall names of 3 common objects given) Estimated Intelligence: average estimated intelligence Insight: + limited insight Judgement: + limited judgement Vital Signs (Past 24 Hours) Last Vital Signs Temp 37.0 C 08/23/18 07:34 Pulse 72 08/23/18 07:34 Resp 16 08/23/18 07:34 BP 183/67 H 08/23/18 07:34 Pulse Ox 92 08/23/18 07:34 Review of Systems Constitutional: reports generalized weakness and confusion Cardiovascular: denied Respiratory: denied Gastrointestinal: denied Neurological: denied Psychiatric: denies symptoms other than stated above Total of at least 10 systems reviewed, pertinent positives as above and in HPI. Results & Data Medications Administered Acetaminophen (Tylenol) 650 mg PO Q4H PRN PRN Reason: pain/fever Stop: 09/21/18 11:49 Last Admin: 08/22/18 12:13 Dose: 650 mg Documented by: [id number] Albuterol (Duoneb) 3 ml NEB QIDR [facility] Stop: 09/21/18 11:59 Last Admin: 08/23/18 07:32 Dose: 3 ml Documented by: [id number] Admin: 08/22/18 19:28 Dose: 3 ml Documented by: [id number] Admin: 08/22/18 15:58 Dose: 3 ml Documented by: [id number] Admin: 08/22/18 12:57 Dose: Not Given Documented by: [id number] Ascorbic Acid (Vitamin C) 500 mg PO DAILY [facility] Stop: 09/22/18 08:59 Last Admin: 08/23/18 07:47 Dose: 500 mg Documented by: [id number] Carvedilol (Coreg) 25 mg PO BID [facility] Stop: 09/21/18 20:59 Last Admin: 08/23/18 07:47 Dose: 25 mg Documented by: [id number] Admin: 08/22/18 21:52 Dose: 25 mg Documented by: [id number] Clopidogrel Bisulfate (Plavix) 75 mg PO DAILY [facility] Stop: 09/22/18 08:59 Last Admin: 08/23/18 07:46 Dose: 75 mg Documented by: [id number] Ferrous Sulfate (Feosol) 325 mg PO DAILY [facility] Stop: 09/22/18 08:59 Last Admin: 08/23/18 07:47 Dose: 325 mg Documented by: [id number] Heparin Sodium (Porcine) (Heparin Sodium (Porcine)) 5,000 units SQ Q8 [facility] Stop: 09/21/18 13:59 Last Admin: 08/23/18 05:33 Dose: 5,000 units Documented by: [id number] Cosigned by: [id number] Admin: 08/22/18 21:54 Dose: 5,000 units Documented by: [id number] Cosigned by: [id number] Admin: 08/22/18 13:52 Dose: 5,000 units Documented by: [id number] Cosigned by: [id number] Hydralazine HCl (Apresoline) 12.5 mg PO TID [facility] Stop: 09/21/18 13:59 Last Admin: 08/23/18 07:46 Dose: 12.5 mg Documented by: [id number] Admin: 08/22/18 21:51 Dose: 12.5 mg Documented by: [id number] Admin: 08/22/18 13:50 Dose: 12.5 mg Documented by: [id number] Ceftriaxone Sodium 1,000 mg/ (Dextrose) 50 mls @ 100 mls/hr IV DAILY@1200 [facility]; Protocol Stop: 08/29/18 11:59 Last Infusion: 08/22/18 14:22 Dose: 0 mls/hr Documented by: [id number] Admin: 08/22/18 13:51 Dose: 100 mls/hr Documented by: [id number] Azithromycin 500 mg/ Dextrose 255 mls @ 125 mls/hr IV DAILY@1400 [facility] Stop: 08/29/18 13:59 Last Infusion: 08/22/18 17:45 Dose: 0 mls/hr Documented by: [id number] Admin: 08/22/18 15:36 Dose: 125 mls/hr Documented by: [id number] Insulin Aspart (Novolog Flexpen) 0 units SC ACHS [facility] Stop: 09/21/18 11:49 Last Admin: 08/23/18 07:48 Dose: 2 units Documented by: [id number] Cosigned by: [id number] Admin: 08/22/18 21:55 Dose: 1 units Documented by: [id number] Cosigned by: [id number] Admin: 08/22/18 17:20 Dose: 3 units Documented by: [id number] Cosigned by: [id number] Admin: 08/22/18 13:51 Dose: Not Given Documented by: [id number] Cosigned by: [id number] Insulin Glargine (Lantus Solostar Pen) 5 units SC Q12 [facility] Stop: 09/21/18 20:59 Last Admin: 08/23/18 07:48 Dose: 5 units Documented by: [id number] Cosigned by: [id number] Admin: 08/22/18 21:54 Dose: 5 units Documented by: [id number] Cosigned by: [id number] Admin: 08/22/18 12:04 Dose: Not Given Documented by: [id number] Cosigned by: [id number] Levothyroxine Sodium (Synthroid) 200 mcg PO DAILYBB [facility] Stop: 09/22/18 06:29 Last Admin: 08/23/18 05:33 Dose: 200 mcg Documented by: [id number] Magnesium Oxide (Mag-Ox) 400 mg PO TID [facility] Stop: 09/21/18 13:59 Last Admin: 08/23/18 07:46 Dose: 400 mg Documented by: [id number] Admin: 08/22/18 21:52 Dose: 400 mg Documented by: [id number] Admin: 08/22/18 15:38 Dose: 400 mg Documented by: [id number] Multivitamins (Multivitamin Tab) 1 tab PO DAILY [facility] Stop: 09/22/18 08:59 Last Admin: 08/23/18 07:46 Dose: 1 tab Documented by: [id number] Multivitamins/Minerals (Caltrate Plus) 1 tab PO DAILY [facility] Stop: 09/22/18 08:59 Last Admin: 08/23/18 07:47 Dose: 1 tab Documented by: [id number] Oseltamivir Phosphate 30mg~Non- Formulary Patient's Own Med 1 ea PO BID [facility]; Protocol Stop: 08/26/18 09:01 Last Admin: 08/23/18 07:45 Dose: 30 mg Documented by: [id number] Admin: 08/22/18 21:52 Dose: 30 mg Documented by: [id number] Admin: 08/22/18 13:49 Dose: 30 mg Documented by: [id number] Ranitidine HCl (Zantac) 150 mg PO BID [facility] Stop: 09/21/18 20:59 Last Admin: 08/23/18 07:47 Dose: 150 mg Documented by: [id number] Admin: 08/22/18 21:53 Dose: 150 mg Documented by: [id number] Venlafaxine HCl (Effexor Extended Release) 150 mg PO DAILY [facility] Stop: 09/22/18 08:59 Last Admin: 08/23/18 07:46 Dose: 150 mg Documented by: [id number] Vitamin D (Vitamin D3) 2,000 units PO DAILY [facility] Stop: 09/22/18 08:59 Last Admin: 08/23/18 07:47 Dose: 2,000 units Documented by: [id number] Zinc Sulfate (Zinc Sulfate) 220 mg PO DAILY [facility] Stop: 09/22/18 08:59 Last Admin: 08/23/18 07:47 Dose: 220 mg Documented by: [id number]
[2018-08-23 10:08] LABS: Hematocrit (blood only) 28.1 % (37-47); Hemoglobin 9.1 g/dL (12.0-16.0); Mean Corpuscular Hgb Conc 32.4 g/dL (32-36); Mean Corpuscular Volume 93.4 fL (80-100); Mean Platelet Volume 8.8 fL (7.4-10.4); Platelet Count 203 K/uL (130-400); RDW Coefficient of Variation 14.7 % (11.5-14.5); RDW Standard Deviation 49.8 fL (36.4-46.3); Red Blood Count 3.01 M/uL (4.2-5.4); White Blood Count 3.36 K/uL (4.8-10.8)
[2018-08-23 10:46] LABS: BUN Creatinine Ratio 19.2 (10-20); Calcium 8.1 mg/dl (8.5-10.1); Creatinine Clr Calc Pharmacy 36.9 ml/min; Est GFR (African American) 53.7; Est GFR (Non-African American) 46.4; Potassium 3.6 mmol/L (3.5-5.1)
[2018-08-23] MEDS: cefTRIAXone SODIUM 1,000 MG in DEXTROSE 5% 50 ML IV SCH (12:32)
[2018-08-23] MEDS: AZITHROMYCIN 500 MG in DEXTROSE 5% 250 ML IV SCH (13:08)
--- NOTE | 2018-08-23 18:03 | Hospitalist Progress Note ---
Date of Service August 23, 2018 Assessment & Plan (1) Influenza A: cont Tamiflu droplet precuation afebrile , cough improved no complain of muscle aches or pain Present on Admission?: Yes (2) Chronic diastolic CHF (congestive heart failure): compensated lasix was kept on hold for dehydration on presentation resumed today Present on Admission?: Yes (3) Diabetic polyneuropathy: (4) Depression: reports of depressed mood lack of energy /motivation was on EFfexor Psych consutled appreciate input Present on Admission?: Yes (5) Chronic kidney disease (CKD), stage III (moderate): cr at baseline monitor (6) History of pleural effusion: chronic Cxray shows small bilat pleural effusion no clinical symptom of SOB .orthopnea or hypoxia Lasix resumed (7) Hypertension: BP elevated on Coreg 25 mg BID Hydralzine 12.5 mg TID Lasix resumed monitor (8) GERD (gastroesophageal reflux disease): PPI (9) Diabetes mellitus, type II: insulin SSI (10) Generalized weakness: reports of feeling weak , poor apptite for almost a year poor appetite denies of mucle aches or pain uses walker /cane at home no recent hx of fall PT/OT eval Nutrition consulted for supplement no report of blood in stool uptodate with colonoscopy last was 1 yr back -was normal FULL CODE Subjective complains of generalized weakness poor appetite -chronic afebrile vitals stable Physical Exam Vital Signs (Past 24 Hours): Last Vital Signs Temp 36.6 C 08/23/18 15:24 Pulse 65 08/23/18 15:31 Resp 15 08/23/18 15:31 BP 165/72 H 08/23/18 15:24 Pulse Ox 98 08/23/18 15:31 Physical Exam: GENERAL: No sign of distress, HEENT: Sclera nonicteric, pink-purple bilateral equal reactive to light extraocular muscle intact Normal oral mucosa, neck: No JVD, no thyromegaly, trachea midline Lungs: Clear to auscultate, no wheeze or rales Cardiovascular: Regular S1 and S2, no murmur or gallop, no JVD, no lower extremity edema Abdomen: Soft, nontender, bowel sounds active, no hepatosplenomegaly Extremities: No rash or deformity, normal joint, Neuro: No focal neurological deficit, no dysarthria, no facial droop Psych: Alert awake oriented x3: Euthymic Skin: No rash LYMPH NODES: No cervical lymphadenopathy
[2018-08-23] MEDS ORDERED: FUROSEMIDE 40 MG TAB PO ONE (19:44)
[2018-08-24] MEDS: LEVOTHYROXINE SODIUM 200 MCG TABLET PO SCH (05:42)
[2018-08-24] MEDS: HEPARIN SOD 5,000 UNIT/0.5 ML VIAL SQ SCH ×3 (05:42→21:00)
[2018-08-24] MEDS: ALBUT/IPRATROP 3MG/0.5MG NEB 3 ML VIAL NEB SCH (07:10)
[2018-08-24] MEDS: MULTIVITAMIN TAB PO SCH (08:50)
[2018-08-24] MEDS: FUROSEMIDE 40 MG TAB PO SCH (08:50)
[2018-08-24] MEDS: CHOLECALCIFEROL 1,000 UNITS TAB PO SCH (08:51)
[2018-08-24] MEDS: CLOPIDOGREL BISULFATE 75 MG TAB PO SCH (08:51)
[2018-08-24] MEDS: VENLAFAXINE HCL XR 150 MG CAPXR PO SCH (08:51)
[2018-08-24] MEDS: MAGNESIUM OXIDE 400 MG TAB PO SCH ×3 (08:51→21:00)
[2018-08-24] MEDS: CARVEDILOL 25 MG TAB PO SCH ×2 (08:53→20:59)
[2018-08-24] MEDS: ZINC SULFATE 220 MG CAPSULE PO SCH (08:53)
[2018-08-24] MEDS: ASCORBIC ACID 500 MG TAB PO SCH (08:53)
[2018-08-24] MEDS: FERROUS SULFATE 325 MG TAB PO SCH (08:54)
[2018-08-24] MEDS: CALCIUM 600MG + VIT D 400 IU TAB PO SCH (08:55)
[2018-08-24] MEDS: INSULIN ASPART 100 UNITS/ML 3 ML PEN SC SCH ×4 (09:06→21:02)
[2018-08-24] MEDS: INSULIN GLARGINE SOLOSTAR 100 UNITS/ML 3 ML PEN SC SCH (09:08)
[2018-08-24] MEDS: OSELTAMIVIR PHOSPHATE 30 MG PO SCH ×2 (09:27→21:02)
[2018-08-24] MEDS ORDERED: ALBUT/IPRATROP 3MG/0.5MG NEB 3 ML VIAL NEB PRN (10:34)
[2018-08-24] MEDS: cefTRIAXone SODIUM 1,000 MG in DEXTROSE 5% 50 ML IV SCH (12:11)
--- NOTE | 2018-08-24 12:38 | Psychiatric Progress Note ---
Date of Service August 24, 2018 Impression / Recommendations Impression Follow-up with patient in order to gather collateral information from the patient's daughters regarding medication side effects and changes. Pt and daughter feel venlafaxine has not been an effective medication for the patient, and distress about possible side effect would likely limit willingness for titration. They are agreeable to reducing the dose to 75mg, and cautioned that the medication should be tapered slowly, consider over several weeks, to reduce risk of discontinuation syndrome. We discussed various depressive symptoms of concern. Decreased appetite and low energy are primary issues according to patient and daughter. After reviewing patient's medication history, they are not sure that they desire restart of sertraline, as previously requested. We reviewed other antidepressant options including low-dose bupropion to target low energy and mood. We also re-visited the idea of mirtazapine to stimulate appetite while treating depression and anxiety. Reviewed previously reported side effect of "bad taste in mouth." Family and patient are wishing for additional time to review options. They are agreeable at this time to taper of venlafaxine only. UpToDate patient education information was provided on bupropion and mirtazapine, and family/patient was encouraged to inform nurses if they are interested in initiating a medication trial during this admission. (1) Depression: 08/23 - Gather collateral information from daughters - For now, continue current home antidepressant medication and dosage - Will reassess with daughters present 08/24 - Will plan to reduce dose of venlafaxine from 150mg to 75mg given reported side effect of xerostomia - Information provided to patient and family on mirtazapine and bupropion, offered to consider initiation while admitted medically, but may also prefer to start new medications when patient is improved medically. Risk Factors Assessment Do You Have Access To A Gun?: No Interval History Identifying Information 82-year-old female admitted medically with generalized weakness, suspected UTI and influenza. Psychiatric consult requested as patient reported depression worsening for the past month. Information on initial assessment is gathered from the patient who is a limited historian and is not considered to be reliable. Chief Complaint "Ok." Review of Systems Notes Constitutional: fatigue and weakness Cardiovascular: denied Respiratory: denied Gastrointestinal: mildly improved appetite Neurological: denied Psychiatric: denies symptoms other than stated above Total of at least 10 systems reviewed, pertinent positives as above and in HPI. Subjective Subjective Patient was seen & assessed and interval progress reviewed with psychiatric nurse liaison. Pt is seen today along with her daughter, Cindy, and her son, Jeff. She allows both to be present for duration of conversation. Collateral information had been gathered from patient's daughter, who states that the patient has reportedly been "diaz and more difficult" in the last few months. Pt's dose of venlafaxine ER was reportedly increased from 75mg to 150mg about a month ago, which correlated with the development of dry mouth. Pt remains tired and weak - which she states has been going on for the past year. Daughter is concerned that antidepressants trialed have not been effective for her mood, but then also becomes concerned about any possible side effects. Discussed patient' s desires, she reports she no longer wishes to be on venlafaxine. Prolonged taper for this medication was explained, in order to avoid symptoms of discontinuation syndrome. We reviewed other medication options, each met with some concern for additional side effects. We discussed her medication history, as well as side effects she had previously experienced. When reviewing specific symptoms patient desires to treat, she reports her highest priority is to improve energy level. Physical Exam Psychiatric Orientation: alert, oriented x 3 and cooperative (her ability to communicate history remains limited) Apperance: appropriately dressed (in hospital gown) and appropriately groomed Eye Contact: + fair eye contact Motor Behavior: no abnormal motor movements (observed while laying in bed, eating lunch) slow speech, minimal engagement in conversation, soft tone Affect: + blunted affect Mood: + depressed mood ("just still sad, no energy") Thought Process: + thought blocking, + circumstantial thought process (difficulty maintaining topics) and + concrete thought process Thought Content: reality based without delusions Suicidal Thoughts: denies suicidal thoughts Homicidal Thoughts: denies homicidal thoughts Hallucinations: no auditory hallucinations and no visual hallucinations Cognition: remote memory grossly intact and language grossly intact; + recent memory not intact (unable to recall names of 3 common objects given) and + attention not intact Estimated Intelligence: average estimated intelligence Insight: + limited insight Judgement: + limited judgement Vital Signs (Past 24 Hours) Last Vital Signs Temp 36.9 C 08/24/18 07:20 Pulse 60 08/24/18 07:20 Resp 16 08/24/18 07:20 BP 173/70 H 08/24/18 07:20 Pulse Ox 98 08/24/18 07:20 Results & Data Laboratory Results Laboratory Results - last 24 hr 08/23/18 08/23/18 08/24/18 16:23 19:54 07:44 POC Glucose 115 H 134 H 98 08/24/18 11:34 POC Glucose 316 H Current Inpatient Medications Current Inpatient Medications: Current Inpatient Medications Acetaminophen (Tylenol) 650 mg PO Q4H PRN PRN Reason: pain/fever Stop: 09/21/18 11:49 Last Admin: 08/22/18 12:13 Dose: 650 mg Documented by: Albuterol (Duoneb) 3 ml NEB Q4H PRN PRN Reason: Shortness Of Breath Or Wheezin Stop: 09/23/18 10:33 Ascorbic Acid (Vitamin C) 500 mg PO DAILY [facility] Stop: 09/22/18 08:59 Last Admin: 08/24/18 08:53 Dose: 500 mg Documented by: Carvedilol (Coreg) 25 mg PO BID [facility] Stop: 09/21/18 20:59 Last Admin: 08/24/18 08:53 Dose: 25 mg Documented by: Clopidogrel Bisulfate (Plavix) 75 mg PO DAILY [facility] Stop: 09/22/18 08:59 Last Admin: 08/24/18 08:51 Dose: 75 mg Documented by: Dextrose (Dextrose 50%) 25 - 50 ml IV UD PRN; Protocol PRN Reason: Hypoglycemia Protocol Stop: 09/21/18 11:49 Ferrous Sulfate (Feosol) 325 mg PO DAILY [facility] Stop: 09/22/18 08:59 Last Admin: 08/24/18 08:54 Dose: 325 mg Documented by: Furosemide (Lasix) 40 mg PO DAILY [facility] Stop: 09/23/18 08:59 Last Admin: 08/24/18 08:50 Dose: 40 mg Documented by: Glucagon (Glucagen) 1 mg SQ UD PRN; Protocol PRN Reason: Hypoglycemia Protocol Stop: 09/21/18 11:49 Glucose (Glucose 40%) 15 - 30 gm PO UD PRN; Protocol PRN Reason: Hypoglycemia Protocol Stop: 09/21/18 11:49 Glucose (Dex4 Glucose) 4 - 8 tabs PO UD PRN; Protocol PRN Reason: Hypoglycemia Protocol Stop: 09/21/18 11:49 Heparin Sodium (Porcine) (Heparin Sodium (Porcine)) 5,000 units SQ Q8 [facility] Stop: 09/21/18 13:59 Last Admin: 08/24/18 05:42 Dose: 5,000 units Documented by: Hydralazine HCl (Apresoline) 12.5 mg PO TID [facility] Stop: 09/21/18 13:59 Last Admin: 08/24/18 08:56 Dose: 12.5 mg Documented by: Ceftriaxone Sodium 1,000 mg/ (Dextrose) 50 mls @ 100 mls/hr IV DAILY@1200 [facility]; Protocol Stop: 08/29/18 11:59 Last Admin: 08/24/18 12:11 Dose: 100 mls/hr Documented by: Azithromycin 500 mg/ Dextrose 255 mls @ 125 mls/hr IV DAILY@1400 [facility] Stop: 08/29/18 13:59 Last Infusion: 08/23/18 15:02 Dose: Infused Documented by: Insulin Aspart (Novolog Flexpen) 0 units SC ACHS [facility] Stop: 09/21/18 11:49 Last Admin: 08/24/18 12:06 Dose: 11 units Documented by: Insulin Glargine (Lantus Solostar Pen) 5 units SC Q12 [facility] Stop: 09/21/18 20:59 Last Admin: 08/24/18 09:08 Dose: 5 units Documented by: Levothyroxine Sodium (Synthroid) 200 mcg PO DAILYBB [facility] Stop: 09/22/18 06:29 Last Admin: 08/24/18 05:42 Dose: 200 mcg Documented by: Magnesium Oxide (Mag-Ox) 400 mg PO TID [facility] Stop: 09/21/18 13:59 Last Admin: 08/24/18 08:51 Dose: 400 mg Documented by: Miscellaneous (Carbohydrates For Hypoglycemia) 15 - 30 gm PO UD PRN PRN Reason: Hypoglycemia Treatment Stop: 09/21/18 11:49 Multivitamins (Multivitamin Tab) 1 tab PO DAILY [facility] Stop: 09/22/18 08:59 Last Admin: 08/24/18 08:50 Dose: 1 tab Documented by: Multivitamins/Minerals (Caltrate Plus) 1 tab PO DAILY [facility] Stop: 09/22/18 08:59 Last Admin: 08/24/18 08:55 Dose: 1 tab Documented by: Oseltamivir Phosphate 30mg~Non- Formulary Patient's Own Med 1 ea PO BID [facility]; Protocol Stop: 08/26/18 09:01 Last Admin: 08/24/18 09:27 Dose: 30 mg Documented by: Ranitidine HCl (Zantac) 150 mg PO BID [facility] Stop: 09/21/18 20:59 Last Admin: 08/24/18 08:50 Dose: 150 mg Documented by: Tramadol HCl (Ultram) 50 mg PO HS PRN PRN Reason: Pain Stop: 09/21/18 11:49 Venlafaxine HCl (Effexor Extended Release) 150 mg PO DAILY [facility] Stop: 09/22/18 08:59 Last Admin: 08/24/18 08:51 Dose: 150 mg Documented by: Vitamin D (Vitamin D3) 2,000 units PO DAILY [facility] Stop: 09/22/18 08:59 Last Admin: 08/24/18 08:51 Dose: 2,000 units Documented by: Zinc Sulfate (Zinc Sulfate) 220 mg PO DAILY [facility] Stop: 09/22/18 08:59 Last Admin: 08/24/18 08:53 Dose: 220 mg Documented by: CPT Code CPT Code 52479
[2018-08-24] MEDS: AZITHROMYCIN 500 MG in DEXTROSE 5% 250 ML IV SCH (14:23)
[2018-08-24] MEDS: ACETAMINOPHEN 325 MG TAB PO PRN (16:23)
--- NOTE | 2018-08-24 16:52 | Hospitalist Progress Note ---
Date of Service August 24, 2018 Assessment & Plan (1) Influenza A: presented with generalized weakness fever /cough influenza A positive started on Tamiflu complete 5 days tx afebrile , clinically improved since admission Present on Admission?: Yes (2) Loculated pleural effusion: chronic no evidene of infiltrate or infection( pneumonia ) dc abx cont home dose of lasix no complain of orthopena , YIN or SOB no evidence of CHF or vol overload Present on Admission?: Yes (3) Generalized weakness: has been ongoing for months worsening of symptom due to Flu PT/Ot eval observe fall precaution Present on Admission?: Yes (4) Anemia due to chronic kidney disease: H&H at baseline monitor Present on Admission?: Yes (5) Chronic diastolic CHF (congestive heart failure): no evidence of vol overload given IV fluid on admission due to dehydration /.Flu /poor appetite pt is eating and drinking fairly well home dose of lasix resumed Present on Admission?: Yes (6) CAD (coronary artery disease): stable no complain of chest pain cont out pt meds (7) Diabetes mellitus, type II: BSG elevated on Lantus and SSI Pharmacy consulted for glycemic managment Present on Admission?: Yes (8) Hypothyroidism: cont Levothyroxine (9) Hypertension: BP elevated increased Hydralazine to 50 mg BID cont beta opal /lasix monitor Present on Admission?: Yes (10) Depression: mentions of lack of motivation /weakness /poor appetite on Effexor Psych consulted appreciate input recommends to cont current dose of SNRI out pt follow up with Psych FULL CODE DVT PROPHYLAXIS : sub q heparin DISPOSITION : PT/OT eval requested may need rehab social service consulted for discharge planning Subjective no complain of cough or SOB afebrile feels tired and weak appetite remains poor Physical Exam Vital Signs (Past 24 Hours): Last Vital Signs Temp 36.8 C 08/24/18 15:24 Pulse 60 08/24/18 15:33 Resp 16 08/24/18 15:24 BP 174/68 H 08/24/18 15:33 Pulse Ox 97 08/24/18 15:33 Physical Exam: GENERAL: No sign of distress, HEENT: Sclera nonicteric, pink-purple bilateral equal reactive to light extraocular muscle intact Normal oral mucosa, neck: No JVD, no thyromegaly, trachea midline Lungs: Clear to auscultate, no wheeze or rales Cardiovascular: Regular S1 and S2, no murmur or gallop, no JVD, no lower extremity edema Abdomen: Soft, nontender, bowel sounds active, no hepatosplenomegaly Extremities: No rash or deformity, normal joint, Neuro: No focal neurological deficit, no dysarthria, no facial droop Psych: Alert awake oriented x3: Euthymic Skin: No rash LYMPH NODES: No cervical lymphadenopathy
[2018-08-24] MEDS ORDERED: INSULIN ASPART 100 UNITS/ML 3 ML PEN SC ONE (18:15)
[2018-08-24] MEDS ORDERED: PHARMACY GLYCEMIC MGMT CONSULT PRN (18:58)
[2018-08-25] MEDS: HEPARIN SOD 5,000 UNIT/0.5 ML VIAL SQ SCH ×3 (05:57→20:41)
[2018-08-25] MEDS: LEVOTHYROXINE SODIUM 200 MCG TABLET PO SCH (05:57)
[2018-08-25] MEDS: MAGNESIUM OXIDE 400 MG TAB PO SCH ×3 (07:15→20:41)
[2018-08-25] MEDS: CALCIUM 600MG + VIT D 400 IU TAB PO SCH (07:16)
[2018-08-25] MEDS: MULTIVITAMIN TAB PO SCH (07:16)
[2018-08-25] MEDS: FERROUS SULFATE 325 MG TAB PO SCH (07:16)
[2018-08-25] MEDS: CLOPIDOGREL BISULFATE 75 MG TAB PO SCH (07:16)
[2018-08-25] MEDS: CARVEDILOL 25 MG TAB PO SCH ×2 (07:16→20:40)
[2018-08-25] MEDS: CHOLECALCIFEROL 1,000 UNITS TAB PO SCH (07:16)
[2018-08-25] MEDS: ZINC SULFATE 220 MG CAPSULE PO SCH (07:17)
[2018-08-25] MEDS: FUROSEMIDE 40 MG TAB PO SCH (07:17)
[2018-08-25] MEDS: VENLAFAXINE HCL XR 75 MG CAPXR PO SCH (07:17)
[2018-08-25] MEDS: ASCORBIC ACID 500 MG TAB PO SCH (07:17)
[2018-08-25] MEDS: OSELTAMIVIR PHOSPHATE 30 MG PO SCH ×2 (07:18→20:41)
[2018-08-25] MEDS: INSULIN ASPART 100 UNITS/ML 3 ML PEN SC SCH ×5 (08:00→20:42)
[2018-08-25] MEDS ORDERED: INSULIN GLARGINE SOLOSTAR 100 UNITS/ML 3 ML PEN SC SCH (09:00)
--- NOTE | 2018-08-25 10:12 | Pharmacy Report ---
Pharmacy Glycemic Short Note 2 - Date of Service August 25, 2018 - Glycemic Short BSG Results (Last 24 hours): 08/24/18 08/24/18 08/24/18 11:34 16:46 16:46 POC Glucose 316 H 398 H* 389 H* 08/24/18 08/25/18 08/25/18 20:29 02:37 07:39 POC Glucose 102 H 110 H 189 H OUTPATIENT ANTIDIABETIC REGIMEN: * Lantus 12 units SQ daily * Metformin 1gm PO BID * A1c = 9.6% 06/21/18 ASSESSMENT: * Type 2 diabetic admitted w/ influenza A * Glycemic control had been quite good the 1st two days of hospitalization, however mid-day yesterday BSGs climbed into the 390's and remained there until additional SQ doses of Novolog were given. * Reviewed prior hospitalizations and insulin doses. The BSGs observed yesterday were somewhat abnormal for her. Perhaps she had been eating between meals? * Will adjust doses based upon prior admission requirements. A larger dose of insulin will be given w/ meals PLAN FOR INPATIENT GLYCEMIC CONTROL: * Hold outpatient oral diabetes medications (metformin) * Basal insulin * Lantus 5 units SQ daily * Bolus insulin * NovoLog per scale ACHS or Q6hrs while NPO * Goal Range: Low 110 mg/dL - High 140 mg/dL * Correction Factor: 30 mg/dL/unit * Nutritional / Prandial insulin per carb ratio of 1 unit per 10 grams CHO consumed PLAN FOR DISCHARGE: * patient is poorly controlled with her out-pt regimen. compliance w/ outpt regimen needs to be determined before adjustments are made.
--- NOTE | 2018-08-25 16:08 | Hospitalist Progress Note ---
Date of Service August 25, 2018 Assessment & Plan (1) Hypertensive urgency: Pressure remains uncontrolled [place] 1 [id number], patient denies of any symptoms at rest, was walking on the hallway, felt dizzy or lightheaded No complaint of chest heaviness no shortness of breath or dyspnea on exertion Hydralazine dose increased to 50 mg twice daily, given extra 25 mg dose this morning Ordered as needed IV hydralazine, patient will be continue with Coreg 25 mg p.o. twice daily Follows with [facility] cardiology Cardiology service consulted for management of hypertensive urgency Ordered for echocardiogram to assess hypertensive cardiomyopathy (2) Influenza A: presented with generalized weakness fever /cough influenza A positive started on Tamiflu complete 5 days tx afebrile , clinically improved since admission (3) Loculated pleural effusion: chronic no evidene of infiltrate or infection( pneumonia ) dc abx cont home dose of lasix no complain of orthopena , YIN or SOB no evidence of CHF or vol overload (4) Generalized weakness: has been ongoing for months worsening of symptom due to Flu PT/Ot eval observe fall precaution (5) Anemia due to chronic kidney disease: H&H at baseline monitor (6) Chronic diastolic CHF (congestive heart failure): no evidence of vol overload given IV fluid on admission due to dehydration /.Flu /poor appetite pt is eating and drinking fairly well home dose of lasix resumed (7) CAD (coronary artery disease): stable no complain of chest pain cont out pt meds (8) Diabetes mellitus, type II: BSG elevated on Lantus and SSI Pharmacy consulted for glycemic managment (9) Hypothyroidism: cont Levothyroxine (10) Hypertension: BP elevated : Outlined in hypertensive urgency as above increased Hydralazine to 50 mg BID cont beta opal /lasix monitor (11) Depression: mentions of lack of motivation /weakness /poor appetite on Effexor Psych consulted appreciate input recommends to cont current dose of SNRI out pt follow up with Psych FULL CODE DVT PROPHYLAXIS : sub q heparin DISPOSITION : PT/OT eval requested may need rehab social service consulted for discharge planning Physical Exam Vital Signs (Past 24 Hours): Last Vital Signs Temp 36.8 C 08/25/18 15:01 Pulse 65 08/25/18 16:06 Resp 18 08/25/18 15:18 BP 215/69 H 08/25/18 16:06 Pulse Ox 100 08/25/18 15:18 (1) Anemia due to chronic kidney disease Chronic kidney disease stage: stage 3 (moderate) Qualified Code(s): N18.3 - Chronic kidney disease, stage 3 (moderate); D63.1 - Anemia in chronic kidney disease (2) Diabetes mellitus, type II Diabetes mellitus alf insulin use: 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 transplanted heart: [place] heart Associated angina: without angina Qualified Code(s): I25.10 - Atherosclerotic heart disease of [place] coronary artery without angina pectoris (4) Depression Depression Type: other depression Qualified Code(s): F32.89 - Other specified depressive episodes (5) Hypothyroidism Hypothyroidism type: unspecified Qualified Code(s): E03.9 - Hypothyroidism, unspecified (6) Hypertension Hypertension type: unspecified Qualified Code(s): I10 - Essential (primary) hypertension
[2018-08-25] MEDS ORDERED: HydrALAZINE HCL 20 MG/ML VIAL IV PRN (16:13)
[2018-08-25] MEDS ORDERED: LORazepam 0.5 MG TAB PO STA (17:55)
[2018-08-25] MEDS ORDERED: ONDANSETRON INJ 2 MG/ML 2 ML VIAL IV PRN (18:33)
[2018-08-25] MEDS: HydrALAZINE TAB 50 MG TAB PO SCH (20:38)
[2018-08-26] MEDS: LEVOTHYROXINE SODIUM 200 MCG TABLET PO SCH (05:54)
[2018-08-26] MEDS: HEPARIN SOD 5,000 UNIT/0.5 ML VIAL SQ SCH ×2 (05:55→14:01)
[2018-08-26] MEDS ORDERED: INSULIN GLARGINE SOLOSTAR 100 UNITS/ML 3 ML PEN SC SCH (09:00)
[2018-08-26] MEDS: INSULIN ASPART 100 UNITS/ML 3 ML PEN SC SCH ×3 (09:11→17:35)
[2018-08-26] MEDS: ASCORBIC ACID 500 MG TAB PO SCH (09:12)
[2018-08-26] MEDS: FERROUS SULFATE 325 MG TAB PO SCH (09:12)
[2018-08-26] MEDS: MAGNESIUM OXIDE 400 MG TAB PO SCH ×2 (09:12→14:01)
[2018-08-26] MEDS: CARVEDILOL 25 MG TAB PO SCH (09:12)
[2018-08-26] MEDS: CHOLECALCIFEROL 1,000 UNITS TAB PO SCH (09:13)
[2018-08-26] MEDS: CALCIUM 600MG + VIT D 400 IU TAB PO SCH (09:13)
[2018-08-26] MEDS: MULTIVITAMIN TAB PO SCH (09:13)
[2018-08-26] MEDS: CLOPIDOGREL BISULFATE 75 MG TAB PO SCH (09:13)
[2018-08-26] MEDS: ZINC SULFATE 220 MG CAPSULE PO SCH (09:13)
[2018-08-26] MEDS: VENLAFAXINE HCL XR 75 MG CAPXR PO SCH (09:13)
[2018-08-26] MEDS: FUROSEMIDE 40 MG TAB PO SCH (09:14)
[2018-08-26] MEDS: OSELTAMIVIR PHOSPHATE 30 MG PO SCH (09:15)
[2018-08-26] MEDS: HydrALAZINE TAB 50 MG TAB PO SCH (09:15)
--- NOTE | 2018-08-26 12:21 | Cardiology Consultation ---
Date of Consultation August 26, 2018 Assessment & Plan (1) Influenza A: Seems to have recovered from her viral illness. (2) Hypertension: According to our records the patient sees nephrology for chronic kidney disease as well as hypertensive management. She does have a history of labile blood pressure. It is fairly well controlled today and if the patient wanted to be discharged home with outpatient follow-up cardiology could be agreeable. (3) Chronic kidney disease (CKD), stage III (moderate): (4) Status post mitral valve repair: Her heart disease is currently stable from a cardiac standpoint. (5) S/P patent foramen ovale closure: History of Present Illness Attending Physician: Darwin Paz MD History of Present Illness This is an 82-year-old female with multiple medical problems as listed below. She usually follows with Vj Acevedo through our [facility]. She was in her usual state of health and then became ill and eventually was admitted to the hospital with influenza. She has been recovering. She has known chronic kidney disease and is followed by nephrology. She also has known hypertension which at times is labile. I been asked to see her in regard to her hypertension. She has no current cardiac complaints today. She denies chest pa in or shortness of breath. She has had no dizziness or lightheadedness. Past medical history: 1. Diastolic congestive heart failure. 2. Recurrent pleural effusions requiring multiple thoracentesis. 3. Mitral regurgitation due to prolapse of the P2 segment of the posterior mitral valve. 4. Status post 12/05/2012 minimally invasive mitral valve repair with resection of the P2 leaflet and placement of a 31 mm Conklin mitral valve annuloplasty 5. Patent foramen ovale status post surgical close at the time of mitral valve repair. 6. October 15, 2011 diagnostic cardiac catheterization at [facility] demonstrating minimal nonobstructive CAD with mild pulmonary hypertension 7. Venous insufficiency of both lower extremities 8. Chronic lymphedema 9. Rheumatic fever as a child 10. Type II diabetes mellitus 11. Stage III CKD 12. 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 Hypertension Allergies Allergy/AdvReac Type Severity Reaction Status Date / Time No Known Allergies Allergy Unverified 08/22/18 08:40 Home Medications Home Medications Medication Instructions Recorded Confirmed Type ascorbic acid (vitamin C) [Vitamin 500 mg PO DAILY 08/22/18 08/22/18 History C] calcium carbonate [Calcium 600] 600 mg PO DAILY 08/22/18 08/22/18 History carvedilol 25 mg PO BID 08/22/18 08/22/18 History cholecalciferol (vitamin D3) 2,000 unit PO DAILY 08/22/18 08/22/18 History [Vitamin D3] clopidogrel [Plavix] 75 mg PO DAILY 08/22/18 08/22/18 History ferrous sulfate 325 mg PO DAILY 08/22/18 08/22/18 History furosemide 20 mg PO DAILY PRN 08/22/18 08/22/18 History furosemide 40 mg PO DAILY 08/22/18 08/22/18 History hydralazine 12.5 mg PO TID 08/22/18 08/22/18 History insulin glargine [Lantus Solostar 12 unit SUBCUT DAILY 08/22/18 08/22/18 History U-100 Insulin] levothyroxine 200 mcg PO DAILY 08/22/18 08/22/18 History magnesium oxide 400 mg PO TID 08/22/18 08/22/18 History metformin 1,000 mg PO BID 08/22/18 08/22/18 History multivitamin 1 tab PO DAILY 08/22/18 08/22/18 History ranitidine HCl 150 mg PO BID 08/22/18 08/22/18 History tramadol 50 mg PO HS PRN 08/22/18 08/22/18 History venlafaxine 150 mg PO DAILY 08/22/18 08/22/18 History vitamin A 10,000 unit PO DAILY 08/22/18 08/22/18 History zinc sulfate 220 mg PO DAILY 08/22/18 08/22/18 History Patient History Medical History CVA (cerebral vascular accident) (Chronic) Iron deficiency anemia (Chronic) Anemia due to chronic kidney disease (Chronic) Chronic diastolic CHF (congestive heart failure) (Chronic) CAD (coronary artery disease) (Chronic) Cardiac cath 2011 demonstrated nonobstructive disease Diabetic polyneuropathy (Chronic) Diabetes mellitus, type II (Chronic) Hypothyroidism (Chronic) GERD (gastroesophageal reflux disease) (Chronic) Dyslipidemia (Chronic) Hypertension (Chronic) Venous insufficiency of both lower extremities (Chronic) Depression (Chronic) Chronic kidney disease (CKD), stage III (moderate) (Chronic) Osteoporosis (Chronic) History of pleural effusion (Chronic) With multiple thoracentesis Surgical History S/P patent foramen ovale closure (Chronic) Status post hysterectomy (Chronic) Status post cholecystectomy (Chronic) Status post cataract extraction (Chronic) Status post mitral valve repair (Chronic) Family History Other Family history non-contributory Social History Communication Ability: Effective Beliefs That Will Affect Care: None marital status: Current Living Situation: Spouse and Family current occupational status: retired Other Information That Helps Us Care for You: No Feels Safe at Home: Yes Safety Concerns: Feels Safe At This Time Smoking Status: Never smoker Hx Alcohol Use: No Hx Substance Use: No Review of Systems Review of Systems: See HPI for pertinent positives. All other 10 point review of systems are negative. Physical Exam Vital Signs (Past 24 Hours): Last Vital Signs Temp 36.7 C 08/26/18 11:38 Pulse 66 08/26/18 11:38 Resp 18 08/26/18 11:38 BP 169/68 H 08/26/18 11:38 Pulse Ox 98 08/26/18 11:38 Physical Exam: General: no acute distress and stated age Head: normocephalic, no masses, lesions, tenderness or abnormalities Eyes: conjunctiva are pink and non-injected, sclera clear Neck: supple, no adenopathy, no bruits, normal jugular venous pulse, no hepatojugular reflux Chest: normal shape and normal respiratory effort Lungs: clear to auscultation and percussion Cardiac Exam: - regular rate & rhythm, no murmurs gallops or rubs - normal S1, normal S2 Pulses: 2(+) throughout Abdomen: abdomen soft, non-tender, no abnormal masses and no hepatosplenomegaly Musculoskeletal: no gait disturbance, no joint inflammation, no deforming arthritis Extremities: no edema and no cyanosis Neuro: grossly normal exam Results & Data Laboratory Results Laboratory Results - last 24 hr 08/25/18 08/25/18 08/26/18 16:48 20:12 07:43 POC Glucose 95 232 H 181 H 08/26/18 11:46 POC Glucose 342 H Medications Administered Current Inpatient Medications Acetaminophen (Tylenol) 650 mg PO Q4H PRN PRN Reason: pain/fever Stop: 09/21/18 11:49 Last Admin: 08/24/18 16:23 Dose: 650 mg Documented by: Albuterol (Duoneb) 3 ml NEB Q4H PRN PRN Reason: Shortness Of Breath Or Wheezin Stop: 09/23/18 10:33 Last Admin: 08/25/18 15:16 Dose: 3 ml Documented by: Ascorbic Acid (Vitamin C) 500 mg PO DAILY [facility] Stop: 09/22/18 08:59 Last Admin: 08/26/18 09:12 Dose: 500 mg Documented by: Carvedilol (Coreg) 25 mg PO BID [facility] Stop: 09/21/18 20:59 Last Admin: 08/26/18 09:12 Dose: 25 mg Documented by: Clopidogrel Bisulfate (Plavix) 75 mg PO DAILY [facility] Stop: 09/22/18 08:59 Last Admin: 08/26/18 09:13 Dose: 75 mg Documented by: Dextrose (Dextrose 50%) 25 - 50 ml IV UD PRN; Protocol PRN Reason: Hypoglycemia Protocol Stop: 09/21/18 11:49 Ferrous Sulfate (Feosol) 325 mg PO DAILY [facility] Stop: 09/22/18 08:59 Last Admin: 08/26/18 09:12 Dose: 325 mg Documented by: Furosemide (Lasix) 40 mg PO DAILY [facility] Stop: 09/23/18 08:59 Last Admin: 08/26/18 09:14 Dose: 40 mg Documented by: Glucagon (Glucagen) 1 mg SQ UD PRN; Protocol PRN Reason: Hypoglycemia Protocol Stop: 09/21/18 11:49 Glucose (Glucose 40%) 15 - 30 gm PO UD PRN; Protocol PRN Reason: Hypoglycemia Protocol Stop: 09/21/18 11:49 Glucose (Dex4 Glucose) 4 - 8 tabs PO UD PRN; Protocol PRN Reason: Hypoglycemia Protocol Stop: 09/21/18 11:49 Heparin Sodium (Porcine) (Heparin Sodium (Porcine)) 5,000 units SQ Q8 [facility] Stop: 09/21/18 13:59 Last Admin: 08/26/18 05:55 Dose: 5,000 units Documented by: Hydralazine HCl (Apresoline) 50 mg PO BID [facility] Stop: 09/24/18 20:59 Last Admin: 08/26/18 09:15 Dose: 50 mg Documented by: Hydralazine HCl (Hydralazine Hcl) 10 mg IV Q8 PRN PRN Reason: sbp > 170 Stop: 09/24/18 16:12 Last Admin: 08/25/18 17:58 Dose: 10 mg Documented by: Insulin Aspart (Novolog Flexpen) 0 units SC ACHS [facility] Stop: 09/21/18 11:49 Last Admin: 08/26/18 12:29 Dose: 15 units Documented by: Insulin Glargine (Lantus Solostar Pen) 8 units SC DAILY [facility]; Protocol Stop: 09/25/18 08:59 Last Admin: 08/26/18 09:09 Dose: 8 units Documented by: Levothyroxine Sodium (Synthroid) 200 mcg PO DAILYBB [facility] Stop: 09/22/18 06:29 Last Admin: 08/26/18 05:54 Dose: 200 mcg Documented by: Magnesium Oxide (Mag-Ox) 400 mg PO TID [facility] Stop: 09/21/18 13:59 Last Admin: 08/26/18 09:12 Dose: 400 mg Documented by: Miscellaneous (Carbohydrates For Hypoglycemia) 15 - 30 gm PO UD PRN PRN Reason: Hypoglycemia Treatment Stop: 09/21/18 11:49 Miscellaneous Information (Consult Glycemic Management Pharmacy) 1 ea N/A UD PRN PRN Reason: Consult Stop: 09/23/18 18:57 Multivitamins (Multivitamin Tab) 1 tab PO DAILY [facility] Stop: 09/22/18 08:59 Last Admin: 08/26/18 09:13 Dose: 1 tab Documented by: Multivitamins/Minerals (Caltrate Plus) 1 tab PO DAILY [facility] Stop: 09/22/18 08:59 Last Admin: 08/26/18 09:13 Dose: 1 tab Documented by: Ondansetron HCl (Zofran) 4 mg IV Q6H PRN PRN Reason: Nausea Stop: 09/24/18 18:32 Ranitidine HCl (Zantac) 150 mg PO BID [facility] Stop: 09/21/18 20:59 Last Admin: 08/26/18 09:11 Dose: 150 mg Documented by: Tramadol HCl (Ultram) 50 mg PO HS PRN PRN Reason: Pain Stop: 09/21/18 11:49 Venlafaxine HCl (Effexor Extended Release) 75 mg PO DAILY [facility] Stop: 09/24/18 08:59 Last Admin: 08/26/18 09:13 Dose: 75 mg Documented by: Vitamin D (Vitamin D3) 2,000 units PO DAILY [facility] Stop: 09/22/18 08:59 Last Admin: 08/26/18 09:13 Dose: 2,000 units Documented by: Zinc Sulfate (Zinc Sulfate) 220 mg PO DAILY [facility] Stop: 09/22/18 08:59 Last Admin: 08/26/18 09:13 Dose: 220 mg Documented by: (1) Hypertension Hypertension type: unspecified Qualified Code(s): I10 - Essential (primary) hypertension
--- NOTE | 2018-08-26 13:50 | Hospitalist Progress Note ---
Date of Service August 26, 2018 Assessment & Plan (1) Hypertensive urgency: Uncontrolled HTN In setting of acute infection Anxiety could be contributing as well CT head: No acute intracranial abnormality. Atrophy and chronic small vessel change. Trace fluid within the sphenoid sinus. BP is labile Appreciate Cardiology Input Follows with Nephrology as outpatient Hydralazine increased to 25mg TID Continue Coreg 25 mg BID Influenza A: Presents with generalized weakness, cough Completed Tamiflu 5 day course Loculated pleural effusion: Chronic Continue lasix Generalized weakness: Ongoing since months worsened due to acute infection PT/OT eval Anemia due to chronic kidney disease: monitor CBC Chronic diastolic CHF: No signs of volume overload Continue home diuretics CAD (coronary artery disease): Stable Continue home meds DM II: Continue Lantus, SSI Pharmacy consulted for glycemic managment Hypothyroidism: continue Levothyroxine Depression: Venlafaxine dose decreased to from 150mg to 75mg given reported side effect of xerostomia Appreciate Psych Input Needs Follow up as outpatient Code Status Full Code DVT Px; Heparin SQ Disposition: May need Home Health Social service consulted for discharge planning Subjective Patient is seen and examined at bedside States feeling lot better today Minimal cough Denies chest pain, SOB, dizziness Offers no other complaints Physical Exam Vital Signs (Past 24 Hours): Last Vital Signs Temp 36.7 C 08/26/18 11:38 Pulse 66 08/26/18 11:38 Resp 18 08/26/18 11:38 BP 169/68 H 08/26/18 11:38 Pulse Ox 98 08/26/18 11:38 Physical Exam: Physical Exam: Vitals signs as noted above General Appearance:Moderately built and nourished, no apparent distress Head: normocephalic, Atraumatic Eyes: normal inspection, EOMI Neck: supple, Trachea midline Respiratory/Chest: Coarse breath sounds Cardiovascular: S1, S2, No murmur Abdomen/GI:Soft, Non tender, Bowel sounds present Extremities/Musculoskelatal:normal inspection, 1+ B/L LE edema Neurologic/Psych:AAOX3, grossly no focal neurological deficits Skin: normal color, warm
--- NOTE | 2018-08-26 14:30 | Discharge Summary ---
Date of Service August 26, 2018 Admission HPI Per Admitting Provider Jemma Almendarez is an 82-year-old female admitted medically after presenting to the ED with generalized weakness. Suspicion from home assessment was for flu or UTI. Pt is being treated medically for findings of pleural effusion and testing positive for influenza A. Pt was seen on psychiatric consult service to assess for reports of worsening depression for the past month. It is reported that the patient dose of venlafaxine ER was being titrated outpatient, and she admitted to side effects with higher dosing. Pt was last seen on our consult service in 01/2018 by ELIAS Urban. Pt is sitting up in bed upon this provider's entrance to the room. She states that she is continuing to feel weak and admits to being a bit confused. She is slowly able to recall previous admissions for weakness, and a history of 60lb weight loss over the past year. Pt states she has had difficulty with appetite - but unclear if current or remote history at time of last assessment. Patient is admittedly confused and reports that her daughters would be able to provide a better history. At this time, patient is unable to recall her current antidepressant medication, the dose, or what side effects she has been experiencing with titration. Pt was offered for this provider to return when her daughters are present and she was agreeable to this. She denies any current concerns. Admission Exam Per Admitting Provider Constitutional: WD/WN, vitals as above Eyes: PERRL, conjunctivae normal, anicteric sclerae ENMT: Ears: no external ear abnormality Nose: no external nose abnormality Mouth: + dry oral mucous membranes Respiratory: normal respiratory effort; no respiratory distress Auscultation: + rhonchi (Scattered) and + wheezes (Scattered, expiratory) Cardiovascular: Rate/Rhythm: regular rate and regular rhythm Vessels: normal peripheral pulses Extremities: + edema (+2-3 edema LLE, +1-2 edema RLE (chronic)) Gastrointestinal (Abdomen): normal bowel sounds, soft, nontender, no hepatosplenomegaly Musculoskeletal: Extremities: no cyanosis and no clubbing Generally weak, strength 4/5 throughout all extremities Skin: no rashes, warm and dry Neurologic: PERRL, EOMI, accommodation nl, no face palsy, no dysarthria Psychiatric: Orientation: alert and oriented x 3 Affect: + depressed affect Principal Diagnosis Discharge Information Discharge Diagnosis Influenza A Hypertensive Urgency Discharge Goals Decrease discomfort,Improve disease control, Improve function Discharge Activity Limitations Per instructions/follow-up Discharge Data Allergies Allergy/AdvReac Type Severity Reaction Status Date / Time No Known Allergies Allergy Unverified 08/22/18 08:40 Consultations 08/22/18 07:45 ED Decision to Admit Stat 08/22/18 11:50 Consult Case Management - Discharge Planning Routine Consult Psychiatry Routine 08/25/18 17:49 Consult Cardiology Routine Procedures Performed CT Chest: 1. Streak and motion compromised examination. 2. Cardiomegaly with evidence of congestive failure. 3. There are small pleural effusions with bibasilar atelectasis. Loculated fluid is present along the major fissures, right greater than left. This likely corresponds to the right middle lobe consolidation seen by x-ray. 4. There is nonspecific mediastinal lymphadenopathy. 5. There is a 4 mm nodule the right apex. This is pathologically indeterminant but of low suspicion and can be followed if clinically warranted. 6. Additional findings as above. CT head: 1. No acute intracranial abnormality. 2. Atrophy and chronic small vessel change. 3. Trace fluid within the sphenoid sinus. Ordered Studies 08/22/18 04:57 CT head/brain wo con Urgent 08/22/18 05:32 CT chest wo con Urgent Hospital Course (1) Hypertensive urgency: [place] [address] Hospitalist Progress Note Signed Patient: Silvano ALMENDAREZ Date: 08/22/18 MR#: [id number] Phy: Darwin Paz MD Acct ID:[id number] Phy: Suzanne Adams MD Date: 1935Fam Phy: Age: 82Location: 2W Sex: F Room/Bed: 59- cc: ~ *NOTICE TO RECEIVING GREEN PARTY/AGENCY This information is strictly Confidential and protected under [place] law. [place] law prohibits you from making any further disclosure of this information unless further disclosure is expressly permitted by the written consent of the person to whom it pertains or is authorized by law. A general authorization for the release of medical or other information is not sufficient for this purpose. Hospital accepts no responsibility if the information is made available to any other person, INCLUDING THE PATIENT. Date of Service August 26, 2018 Assessment & Plan (1) Hypertensive urgency: Uncontrolled HTN In setting of acute infection Anxiety could be contributing as well CT head: No acute intracranial abnormality. Atrophy and chronic small vessel change. Trace fluid within the sphenoid sinus. BP is labile Appreciate Cardiology Input Follows with Nephrology as outpatient Hydralazine increased to 25mg TID Continue Coreg 25 mg BID Influenza A: Presents with generalized weakness, cough Completed Tamiflu 5 day course Loculated pleural effusion: Chronic Continue lasix Generalized weakness: Ongoing since months worsened due to acute infection PT/OT eval Anemia due to chronic kidney disease: monitor CBC Chronic diastolic CHF: No signs of volume overload Continue home diuretics CAD (coronary artery disease): Stable Continue home meds DM II: Continue Lantus, SSI Pharmacy consulted for glycemic managment Hypothyroidism: continue Levothyroxine Depression: Venlafaxine dose decreased to from 150mg to 75mg given reported side effect of xerostomia Appreciate Psych Input Needs Follow up as outpatient Code Status Full Code DVT Px; Heparin SQ Disposition: May need Home Health Social service consulted for discharge planning Total Time Total Time Spent Total Time Spent (In Minutes): 36 minutes Total Time Includes: Examination of the Patient, Discharge Planning, Medication Reconciliation, Communication With Other Providers and Other Discharge Plan Discharge Items Patient Disposition: Home - Home Health Services Reason For Visit: FLU Discharge Diagnosis: Influenza A Hypertensive Urgency Discharge Goals: Decrease discomfort, Improve disease control and Improve function Activity: Per 'Additional Instructions' section Exercise/Sports: Gradually increase as tolerated Non-emergency contact: Primary Care Provider, Allergy Nurse and Psychiatrist Call non-emergency contact if: you have any medication questions, your symptoms worsen, your pain is concerning for you and you have a fever Follow-up/Referrals: Suzanne Adams MD [Primary Care Provider] - Diet: Carb Consistent or DM2 and Low Sodium (2gm) Diet Texture: Dental soft (bite-sized) Addtl Provider Instructions: Follow up with your PCP on 08/29/18 at 2:25pm Follow up with your Allergy Nurse in 4 weeks Follow up with your Psychiatrist Dr.Melissa Oglesby in 4 weeks Seek immediate medical attention if your symptoms reoccur or worsen Prescriptions: New venlafaxine 75 mg Capsule,Extended Release 24hr 75 mg PO DAILY 30 Days Qty: 30 RF: 1 Continued multivitamin Tablet 1 tab PO DAILY RF: 0 furosemide 40 mg Tablet 40 mg PO DAILY RF: 0 carvedilol 25 mg Tablet 25 mg PO BID RF: 0 clopidogrel [Plavix] 75 mg Tablet 75 mg PO DAILY RF: 0 tramadol 50 mg Tablet 50 mg PO HS PRN (Reason: Pain) RF: 0 zinc sulfate 220 mg Tablet 220 mg PO DAILY RF: 0 calcium carbonate [Calcium 600] 600 mg calcium (1,500 mg) Tablet 600 mg PO DAILY RF: 0 vitamin A 10,000 unit Capsule 10,000 unit PO DAILY RF: 0 ferrous sulfate 325 mg (65 mg iron) Tablet 325 mg PO DAILY RF: 0 metformin 1,000 mg Tablet 1,000 mg PO BID RF: 0 ascorbic acid (vitamin C) [Vitamin C] 500 mg Capsule, Extended Release 500 mg PO DAILY RF: 0 levothyroxine 200 mcg Tablet 200 mcg PO DAILY RF: 0 ranitidine HCl 150 mg Capsule 150 mg PO BID RF: 0 furosemide 20 mg Tablet 20 mg PO DAILY PRN (Reason: Edema) RF: 0 Lantus Solostar U-100 Insulin 100 unit/mL (3 mL) Insulin Pen 12 unit SUBCUT DAILY RF: 0 cholecalciferol (vitamin D3) [Vitamin D3] 2,000 unit Capsule 2,000 unit PO DAILY RF: 0 magnesium oxide 400 mg Capsule 400 mg PO TID RF: 0 Changed hydralazine 25 mg Tablet 25 mg PO TID 30 Days Qty: 90 RF: 0 Discontinued venlafaxine 150 mg Capsule,Extended Release 24hr 150 mg PO DAILY RF: 0 Stand-Alone Forms: [facility] Discharge Orders: Discharge Order (Routine); Ordered 08/26/18 Ordered By: Darwin Paz Admission Data Admit Date/Time: 08/22/18 10:25 Attending Provider: Darwin Paz Admit Provider: Michaelle Padilla Primary Care Provider: Suzanne Adams Other Providers: Hipolito Vaca ; Jeff Sifuentes I ; Lobo Mcintyre ; Nehemiah Jefferson ; Shamir Warner ; Sudhakar Sosa ; Jeff Turner ; Vj Acevedo ; Ro Benavides ; Shi Carrasquillo ; Michaelle Padilla Service: Medical Other Interventions: Discharge Summary Assessment (RN) Last Done: 08/26/18 16:47
== END 2018-08-26 18:53 | disposition home health service (06) | DRG 194 ==
LOC: MERGE 04:32 → ED 04:32 → SUATTDRO 10:25 → 2W 10:25

== ENCOUNTER 2018-12-20 18:52 | Inpatient (IN) ==
[2018-12-20] MEDS ORDERED: PROCHLORPERAZINE 1 ML IV STA (19:02)
[2018-12-20] MEDS ORDERED: ACETAMINOPHEN 1,000 MG/100 ML VIAL IV STA (19:02)
[2018-12-20] MEDS ORDERED: SODIUM CHLORIDE 0.9% 250 ML IV ONE (19:02)
--- NOTE | 2018-12-20 19:24 | Emergency Department Note ---
Entered by Inna Elena acting as a scribe for Nato Celis MD History of Present Illness General Chief complaint: Altered Mental Status Time Seen by Provider: 12/20/18 18:53 Source: patient and other (ED nurse) History of Present Illness Onset (ago): hour(s) (couple of hours) Location: head (top of head) Pain Consistency: + intermittent Relieved By: + none (Aleve) Associated symptoms: + other (leg swelling, altered mental status) The patient is a 83 year old F who presents to the Emergency Room with complaints of intermittent headaches that started a couple of hours ago. She states that her headache is located at the top of her head. She notes that she does normally experience headaches. She states that she lives at home with her and daughter. She adds that she took Aleve today to no relief. She states that she too all of her prescribed medications today. She notes that she is currently experiencing leg swelling. The ED nurse states that the patients family called EMS due to the patient experiencing altered mental status. The ED nurse adds that the patient was alert and oriented x4 per EMS. The HPI is limited due to the patients condition. Home Medications Home Medications Medication Instructions Recorded Confirmed Type Lantus Solostar U-100 Insulin 14 unit SUBCUT QAM 08/22/18 12/20/18 History ascorbic acid (vitamin C) [Vitamin 500 mg PO QAM 08/22/18 12/20/18 History C] calcium carbonate [Calcium 600] 600 mg PO QDL 08/22/18 12/20/18 History carvedilol 25 mg PO BID 08/22/18 12/20/18 History cholecalciferol (vitamin D3) 2,000 unit PO QAM 08/22/18 12/20/18 History [Vitamin D3] clopidogrel [Plavix] 75 mg PO QAM 08/22/18 12/20/18 History ferrous sulfate 325 mg PO QDL 08/22/18 12/20/18 History levothyroxine 200 mcg PO QAM 08/22/18 12/20/18 History magnesium oxide 400 mg PO TID 08/22/18 12/20/18 History metformin 1,000 mg PO BID 08/22/18 12/20/18 History tramadol 50 mg PO HS PRN 08/22/18 12/20/18 History vitamin A 10,000 unit PO QAM 08/22/18 12/20/18 History zinc sulfate 220 mg PO QDL 08/22/18 12/20/18 History acetaminophen [Tylenol Extra 500 mg PO Q6H PRN 12/20/18 12/20/18 History Strength] hydralazine 50 mg PO TID 12/20/18 12/20/18 History omeprazole 20 mg PO QAM 12/20/18 12/20/18 History torsemide 40 mg PO QAM 12/20/18 12/20/18 History Allergies Allergy/AdvReac Type Severity Reaction Status Date / Time No Known Allergies Allergy Unverified 12/20/18 20:18 Past Med/Surg History Medical History CVA (cerebral vascular accident) (Chronic) Iron deficiency anemia (Chronic) Anemia due to chronic kidney disease (Chronic) Chronic diastolic CHF (congestive heart failure) (Chronic) CAD (coronary artery disease) (Chronic) Cardiac cath 2011 demonstrated nonobstructive disease Diabetic polyneuropathy (Chronic) Diabetes mellitus, type II (Chronic) Hypothyroidism (Chronic) GERD (gastroesophageal reflux disease) (Chronic) Dyslipidemia (Chronic) Hypertension (Chronic) Venous insufficiency of both lower extremities (Chronic) Depression (Chronic) Chronic kidney disease (CKD), stage III (moderate) (Chronic) Osteoporosis (Chronic) History of pleural effusion (Chronic) With multiple thoracentesis Surgical History S/P patent foramen ovale closure (Chronic) Status post hysterectomy (Chronic) Status post cholecystectomy (Chronic) Status post cataract extraction (Chronic) Status post mitral valve repair (Chronic) Family History Other Family history non-contributory Social History Preferred Language: Frisian Communication Ability: Effective Seasonal Clerk Required: No Beliefs That Will Affect Care: None marital status: Current Living Situation: Spouse current occupational status: retired Other Information That Helps Us Care for You: No Feels Safe at Home: Yes Safety Concerns: Feels Safe At This Time Smoking Status: Never smoker Do You Dip or Chew Tobacco: No Second Hand Exposure: No Tobacco Cessation Education Requested by Patient: No Hx Alcohol Use: Yes Alcohol type: wine Hx Substance Use: No Review of Systems See HPI for pertinent positives & negatives. The ROS is limited due to the patients condition. Physical Exam Vital Signs Vital Signs - 24 hr 12/20/18 19:02 12/20/18 19:03 12/20/18 19:16 Temperature 36.6 C Temperature Source Oral Sepsis Recent Fever Within 48 Hours No Sepsis New/Unexplained Change in Mental Status No Sepsis Action Taken by Nursing No Action Required Pulse Rate 83 82 Pulse Rate from SpO2 Sensor Respiratory Rate 20 23 Blood Pressure 234/94 H 220/87 H Blood Pressure Mean 140 131 Pulse Oximetry 99 99 Oxygen Delivery Method Room Air Room Air Room Air 12/20/18 20:13 12/20/18 20:30 12/20/18 21:00 Temperature Temperature Source Sepsis Recent Fever Within 48 Hours Sepsis New/Unexplained Change in Mental Status Sepsis Action Taken by Nursing Pulse Rate 91 H 88 Pulse Rate from SpO2 Sensor 89 Respiratory Rate 22 18 20 Blood Pressure 223/89 H 210/81 H 225/89 H Blood Pressure Mean 133 124 134 Pulse Oximetry 96 96 97 Oxygen Delivery Method Room Air Room Air Room Air GENERAL: Awake, alert, uncomfortable appearing, no distress HENT: Normocephalic, atraumatic. TM's normal. DMM. EYES: PERRL. EOMI. Normal conjunctiva. Sclera non-icteric. NECK: Supple. No nuchal rigidity. FROM. No JVD or bruit. RESPIRATORY: CTAB CARDIAC: RRR. ABDOMEN: Soft, non distended. No tenderness to palpation. No rebound or guarding. No masses. RECTAL: Deferred. MUSCULOSKELETAL: Unremarkable. No edema. No discoloration. Gross motor strength symmetric. NEURO: Normal sensorium. No sensory or motor deficits noted. 5/5 strength and SILT x4 extremities. Cerebellar function intact, including finger to nose, alternating palms. SKIN: No rash or jaundice noted. LYMPH: No adenopathy Course 1853: The patient was evaluated in room A9B. A complete history and physical exam was performed. 2032: I reviewed the patient's case with Dr. Yang Neves [facility]. He will evaluate the patient for further management. Consultations Consultation #1: [facility] the patient for further management. Time: 20:33 Administered Medications Ascorbic Acid (Vitamin C) 500 mg PO QAM [facility] Stop: 01/20/19 08:59 Last Admin: 12/21/18 07:59 Dose: 500 mg Documented by: [id number] Aspirin (Ecotrin Ectab) 81 mg PO QAM [facility] Stop: 01/20/19 08:59 Last Admin: 12/21/18 07:57 Dose: 81 mg Documented by: [id number] Atorvastatin Calcium (Lipitor) 80 mg PO QAM [facility] Stop: 01/20/19 08:59 Last Admin: 12/21/18 07:59 Dose: 80 mg Documented by: [id number] Carvedilol (Coreg) 25 mg PO BID [facility] Stop: 01/19/19 22:24 Last Admin: 12/21/18 07:57 Dose: 25 mg Documented by: [id number] Admin: 12/21/18 01:27 Dose: 25 mg Documented by: [id number] Clopidogrel Bisulfate (Plavix) 75 mg PO QAM [facility] Stop: 01/20/19 08:59 Last Admin: 12/21/18 07:57 Dose: 75 mg Documented by: [id number] Duloxetine HCl (Cymbalta) 60 mg PO QPM [facility] Stop: 01/19/19 23:24 Last Admin: 12/21/18 01:27 Dose: 60 mg Documented by: [id number] Ferrous Sulfate (Feosol) 325 mg PO QDL [facility] Stop: 01/20/19 11:29 Last Admin: 12/21/18 11:52 Dose: 325 mg Documented by: [id number] Heparin Sodium (Porcine) (Heparin Sodium (Porcine)) 5,000 units SQ Q8 [facility] Stop: 01/20/19 05:59 Last Admin: 12/21/18 06:17 Dose: 5,000 units Documented by: [id number] Cosigned by: [id number] Hydralazine HCl (Apresoline) 50 mg PO TID [facility] Stop: 01/19/19 22:24 Last Admin: 12/21/18 07:58 Dose: 50 mg Documented by: [id number] Admin: 12/21/18 01:27 Dose: 50 mg Documented by: [id number] Furosemide 60 mg/ Syringe 6 mls @ 4 mls/min IV Q12H [facility] Stop: 01/19/19 23:29 Last Admin: 12/21/18 06:17 Dose: 4 mls/min Documented by: [id number] Admin: 12/21/18 00:15 Dose: 4 mls/min Documented by: [id number] Ceftriaxone Sodium 1,000 mg/ (Dextrose) 50 mls @ 100 mls/hr IV Q24H [facility]; Protocol Stop: 12/26/18 07:59 Last Infusion: 12/21/18 11:52 Dose: 0 mls/hr Documented by: [id number] Admin: 12/21/18 11:22 Dose: 100 mls/hr Documented by: [id number] Insulin Aspart (Novolog Flexpen) 0 units SC ACHS [facility]; Protocol Stop: 01/20/19 07:29 Last Admin: 12/21/18 11:54 Dose: 8 units Documented by: [id number] Cosigned by: [id number] Admin: 12/21/18 08:02 Dose: 1 units Documented by: [id number] Cosigned by: [id number] Insulin Glargine (Lantus Solostar Pen) 14 units SQ QAM [facility]; Protocol Stop: 01/20/19 08:59 Last Admin: 12/21/18 08:00 Dose: 14 units Documented by: [id number] Cosigned by: [id number] Ioversol (Optiray 320 125ml) 118 ml IV ONCE PRN PRN Reason: Interaction Checking Stop: 12/24/18 20:01 Last Admin: 12/20/18 20:03 Dose: 118 ml Documented by: [id number] Levothyroxine Sodium (Synthroid) 200 mcg PO DAILYBB [facility] Stop: 01/20/19 06:29 Last Admin: 12/21/18 06:18 Dose: 200 mcg Documented by: [id number] Magnesium Oxide (Mag-Ox) 400 mg PO TID [facility] Stop: 01/19/19 22:24 Last Admin: 12/21/18 07:58 Dose: 400 mg Documented by: [id number] Admin: 12/21/18 01:26 Dose: 400 mg Documented by: [id number] Multivitamins/Minerals (Caltrate Plus) 1 tab PO QDL [facility] Stop: 01/20/19 11:29 Last Admin: 12/21/18 11:52 Dose: 1 tab Documented by: [id number] Nitroglycerin (Nitro-Bid 2%) 1 inch EXT Q6 [facility] Stop: 01/20/19 00:00 Last Admin: 12/21/18 11:53 Dose: Not Given Documented by: [id number] Admin: 12/21/18 06:16 Dose: Not Given Documented by: [id number] Admin: 12/21/18 01:24 Dose: Not Given Documented by: [id number] Pantoprazole Sodium (Protonix) 40 mg PO QAM [facility] Stop: 01/20/19 08:59 Last Admin: 12/21/18 07:59 Dose: 40 mg Documented by: [id number] Vitamin D (Vitamin D3) 2,000 units PO QAM [facility] Stop: 01/20/19 08:59 Last Admin: 12/21/18 07:57 Dose: 2,000 units Documented by: [id number] Zinc Sulfate (Zinc Sulfate) 220 mg PO QDL [facility] Stop: 01/20/19 11:29 Last Admin: 12/21/18 11:53 Dose: 220 mg Documented by: [id number] Discontinued Medications Acetaminophen (Ofirmev) 1,000 mg in 100 mls @ 400 mls/hr IV NOW STA Stop: 12/20/18 19:16 Last Infusion: 12/20/18 19:37 Dose: 0 mls/hr Documented by: [id number] Admin: 12/20/18 19:17 Dose: 400 mls/hr Documented by: [id number] Prochlorperazine (Compazine) 1 mls @ 1 mls/min IV NOW STA Stop: 12/20/18 19:03 Last Admin: 12/20/18 19:17 Dose: 1 mls/min Documented by: [id number] Sodium Chloride (Nss) 250 mls @ 999 mls/hr IV .Q16M ONE Stop: 12/20/18 19:17 Last Infusion: 12/20/18 19:38 Dose: 0 mls/hr Documented by: [id number] Admin: 12/20/18 19:18 Dose: 999 mls/hr Documented by: [id number] Magnesium Sulfate/Dextrose (Magnesium Sulfate / D5w) 1 gm in 100 mls @ 100 mls/hr IV Q1H [facility] Stop: 12/20/18 22:14 Last Infusion: 12/20/18 23:00 Dose: 0 mls/hr Documented by: [id number] Admin: 12/20/18 21:20 Dose: 100 mls/hr Documented by: [id number] Infusion: 12/20/18 21:15 Dose: 0 mls/hr Documented by: [id number] Admin: 12/20/18 20:15 Dose: 100 mls/hr Documented by: [id number] Insulin Aspart (Novolog Flexpen) 0 units SC 0000,0400 [facility]; Protocol Stop: 12/21/18 04:01 Last Admin: 12/21/18 04:57 Dose: Not Given Documented by: [id number] Cosigned by: [id number] Admin: 12/21/18 01:31 Dose: 3 units Documented by: [id number] Cosigned by: [id number] Medical Decision Making Differential Diagnosis Differential diagnosis includes: migraine headache, meningitis, sinusitis, CO exposure, ICH, SAH, infection, tumor, headache, sinus thrombosis, arterial dissection, as well as others were entertained. Medical Records Attestation: I reviewed the patient's medical records. Home Medications Current Medication List: was personally reviewed by me Laboratory Data Attestation: I reviewed the patient's lab results. Result diagrams: 12/21/18 06:35 12/21/18 06:35 Lab Results 12/20/18 12/20/18 12/20/18 Range/Units 18:59 18:59 18:59 WBC 7.07 (4.8-10.8) K/uL RBC 4.06 L (4.2-5.4) M/uL Hgb 11.5 L (12.0-16.0) g/dL Hct 35.7 L (37-47) % MCV 87.9 (80-100) fL MCH 28.3 (25-34) pg MCHC 32.2 (32-36) g/dL RDW Std Deviation 47.0 H (36.4-46.3) fL RDW Coeff of Rosalba 14.5 (11.5-14.5) % Plt Count 393 (130-400) K/uL MPV 8.8 (7.4-10.4) fL Immature Gran % (Auto) 0.6 % Neut % (Auto) 78.2 % Lymph % (Auto) 15.8 % [place] % (Auto) 4.7 % Eos % (Auto) 0.4 % Baso % (Auto) 0.3 % Immature Gran # (Auto) 0.04 H (0.00-0.02) K/uL Neut # (Auto) 5.53 (1.4-6.5) K/uL Lymph # (Auto) 1.12 L (1.2-3.4) K/uL [place] # (Auto) 0.33 (0.11-0.59) K/uL Eos # (Auto) 0.03 (0-0.5) K/uL Baso # (Auto) 0.02 (0-0.2) K/uL PT 12.1 H (9.0-12.0) Seconds INR 1.2 H (0.9-1.1) Sodium 133 L (136-145) mmol/L Potassium 4.1 (3.5-5.1) mmol/L Chloride 95 L (98-107) mmol/L Carbon Dioxide 32 (21-32) mmol/L Anion Gap 6.0 (3-11) BUN 24 H (7-18) mg/dl Creatinine 1.36 H (0.6-1.2) mg/dl Est Cr Clr Drug Dosing 29.5 ml/min Est GFR ( Amer) 42.2 Est GFR (Non-Af Amer) 36.4 BUN/Creatinine Ratio 17.4 (10-20) Glucose 223 H (70-99) mg/dl POC Glucose (70-99) Calcium 9.4 (8.5-10.1) mg/dl Phosphorus 3.4 (2.5-4.9) mg/dl Magnesium 1.1 L (1.8-2.4) mg/dl Total Bilirubin 0.4 (0.2-1) mg/dl AST 16 (15-37) U/L ALT 21 (12-78) U/L Alkaline Phosphatase 62 (45-117) U/L Troponin I < 0.015 (0-0.045) ng/ml NT-Pro-B Natriuret Pep 3391 H (0-1800) pg/ml Total Protein 7.6 (6.4-8.2) gm/dl Albumin 3.5 (3.4-5.0) gm/dl Globulin 4.1 H (2.5-4.0) gm/dl Albumin/Globulin Ratio 0.9 (0.9-2) Lipase 22 L (73-393) U/L TSH 0.209 L (0.300-4.500) uIu/ml Free T4 1.77 H (0.8-1.6) ng/dl 12/20/18 Range/Units 19:09 WBC (4.8-10.8) K/uL RBC (4.2-5.4) M/uL Hgb (12.0-16.0) g/dL Hct (37-47) % MCV (80-100) fL MCH (25-34) pg MCHC (32-36) g/dL RDW Std Deviation (36.4-46.3) fL RDW Coeff of Rosalba (11.5-14.5) % Plt Count (130-400) K/uL MPV (7.4-10.4) fL Immature Gran % (Auto) % Neut % (Auto) % Lymph % (Auto) % [place] % (Auto) % Eos % (Auto) % Baso % (Auto) % Immature Gran # (Auto) (0.00-0.02) K/uL Neut # (Auto) (1.4-6.5) K/uL Lymph # (Auto) (1.2-3.4) K/uL [place] # (Auto) (0.11-0.59) K/uL Eos # (Auto) (0-0.5) K/uL Baso # (Auto) (0-0.2) K/uL PT (9.0-12.0) Seconds INR (0.9-1.1) Sodium (136-145) mmol/L Potassium (3.5-5.1) mmol/L Chloride (98-107) mmol/L Carbon Dioxide (21-32) mmol/L Anion Gap (3-11) BUN (7-18) mg/dl Creatinine (0.6-1.2) mg/dl Est Cr Clr Drug Dosing ml/min Est GFR ( Amer) Est GFR (Non-Af Amer) BUN/Creatinine Ratio (10-20) Glucose (70-99) mg/dl POC Glucose 211 H (70-99) Calcium (8.5-10.1) mg/dl Phosphorus (2.5-4.9) mg/dl Magnesium (1.8-2.4) mg/dl Total Bilirubin (0.2-1) mg/dl AST (15-37) U/L ALT (12-78) U/L Alkaline Phosphatase (45-117) U/L Troponin I (0-0.045) ng/ml NT-Pro-B Natriuret Pep (0-1800) pg/ml Total Protein (6.4-8.2) gm/dl Albumin (3.4-5.0) gm/dl Globulin (2.5-4.0) gm/dl Albumin/Globulin Ratio (0.9-2) Lipase (73-393) U/L TSH (0.300-4.500) uIu/ml Free T4 (0.8-1.6) ng/dl Imaging Data Radiologist's Impression: Radiology results as stated below per my review and th e radiologist's interpretation: XR chest 1V portable CLINICAL HISTORY: Atypical chest pain COMPARISON STUDY: No previous studies for comparison. FINDINGS: Postsurgical changes are again evident. A valvular prosthetic ring is again visualized. There is a persistent small right pleural effusion. There is improving aeration of the right lung base. There is diffuse elevation of interstitium, likely secondary to mild pulmonary vascular congestion[ IMPRESSION: 1. Radiographic evidence of mild pulmonary vascular congestion with a small right pleural effusion. No evidence of lobar consolidation Electronically signed by: Juan Miguel Falk M.D. 12/20/2018 7:[address] angio head w con CLINICAL HISTORY: ROSA, confusion POSSIBLE ACUTE STROKE TECHNIQUE: CT angiography of the head was performed in a dynamic helical fashion during intravenous administration of 118 cc of Optiray 320. MIP imaging was performed. A dose lowering technique was utilized adhering to the principles of ALARA. CT DOSE: COMPARISON STUDY: Noncontrast head CT performed the same day FINDINGS: There are no lesion suspicious for aneurysm. There are no major intracranial branch occlusions. The dural venous sinuses appear patent. There are no pathologically enhancing masses. IMPRESSION: No significant abnormalities identified. Electronically signed by: Juan Miguel Falk M.D. 12/20/2018 8:[address] angio neck with con CLINICAL HISTORY: Headache, confusion, possible acute stroke. COMPARISON STUDY: No previous studies for comparison. TECHNIQUE: CT angiography was performed from the aortic arch to the skull base. MIP imaging was performed. The patient was scanned in a dynamic helical fashion during intravenous administration of 118 cc of Optiray 320. A dose lowering technique was utilized adhering to the principles of ALARA. CT DOSE: 962.48 mGy.cm Technique: CT angiogram of the carotid and vertebral arteries was obtained using intravenous contrast and 3-D reconstruction. NASCET criteria was utilized. Findings: The visualized portions of the upper lung carlin reveal bilateral pleural effusions and mild septal edema. There is a multinodular thyroid. There are mild atheromatous changes present at the level of each carotid bulb. The right carotid revealed no evidence of aneurysm and no evidence of dissection. There is no evidence of hemodynamic significant stenosis. The left carotid revealed no evidence of hemodynamic significant stenosis. There is no evidence of aneurysm. There is no evidence of dissection. There is no evidence of hemodynamically significant vertebral stenosis. There is no evidence of vertebral dissection. IMPRESSION: 1. No evidence of hemodynamically significant carotid or vertebral artery stenosis. No evidence of dissection. 2. Evidence of congestive failure/fluid overload with small bilateral pleural effusions Electronically signed by: Juan Miguel Falk M.D. 12/20/2018 8:[address] head/brain wo con CLINICAL HISTORY: Headache confusion COMPARISON STUDY: 08/22/2018 TECHNIQUE: Axial CT of the brain is performed from the vertex to the skull base. IV contrast was not administered for this examination. A dose lowering technique was utilized adhering to the principles of ALARA. CT DOSE: FINDINGS: No intra or extra-axial mass lesions are visualized. There is no CT evidence of acute cortical infarction. There is no evidence of midline shift. There is no acute hemorrhage. No calvarial fractures are visualized. There are patchy white matter hypodensities likely on a small vessel basis. There are persistent deep white matter infarcts in the right frontal lobe. There is no evidence of pathologic ventricular dilatation. There is a chronic left mastoid effusion. IMPRESSION: No acute intracranial findings. Electronically signed by: Juan Miguel Falk M.D. 12/20/2018 8:12 PM ECG Data Attestation: I personally reviewed and interpreted this ECG as follows: Indication: altered mental status Rate (beats per minute): 80 Rhythm: normal sinus Findings: + other (normal axis); no acute ischemic change Blood Pressure Blood Pressure Findings: Elevated blood pressure Blood Pressure Disposition: further management by hospitalist MARIBEL Maynard The patient is a pleasant 83-year-old woman with a past medical history of hypertension, CKD, diabetes, hyperlipidemia, hypothyroidism, CHF, depression, possible history of stroke, and anxiety who presents to emergency department with acute onset headache that began today with associated confusion per hpi. Of note, patient had been admitted to [facility] in November 2018 for generalized weakness which was attributed to a component of hypertensive urgency, flulike symptoms as well as a component of her depression. On arrival the patient is uncomfortable but in NAD, AF with BP 230s/80s and otherwise VSS. Of note, patient frequently with arm bent with BP measuring. EKG without evidence of acute ischemia. CXR negative for PNA but with mild vascular congestion. CT head and CTA of head and neck negative for acute process. WBC and platelets wnl. H/H improved from prior values in August. Cr. 1.3 with patient's range for her CKD. Glucose 200s and Chemistry without acidosis. Magnesium 1.1 with repletion provided. LFTs and electrolytes unremarkable. UA Pending. Patient feeling improved after IVF, apap, half-dose compazine. Unclear etiology to the patient's symptoms however low magnesium likely playing a role. Reasonable to admit for further magnesium repletion and monitoring of sx. Case discussed with Dr. Neves, [facility] hospitalist, who will evaluate the patient for admission. Impression & Plan Hypomagnesemia, Headache Discharge Plan Visit Data *Final* Discharge Date/Time: 12/20/18 21:49 Chief Complaint: Altered Mental Status ED Provider: Nato Celis Discharge Problem: Hypomagnesemia, Headache Patient Disposition: Admitted As Inpatient Discharge Instructions Interventions: ED Discharge Assessment Last Done: 12/20/18 21:49 Discharge Problem: Headache Qualifiers: Headache type: unspecified Headache chronicity pattern: acute headache Intractability: not intractable Qualified Code(s): R51 - Headache The scribe's documentation has been prepared under my direction and personally reviewed by me in its entirety. I confirm that the note above accurately reflects all work, treatment, procedures, and medical decision making performed by me.
[2018-12-20 19:25] LABS: Basophils # (auto) 0.02 K/uL (0-0.2); Basophils % (auto) 0.3 %; Eosinophils # (auto) 0.03 K/uL (0-0.5); Eosinophils % (auto) 0.4 %; Hematocrit (blood only) 35.7 % (37-47); Hemoglobin 11.5 g/dL (12.0-16.0); Immature Granulocytes # (auto) 0.04 K/uL (0.00-0.02); Immature Granulocytes % (auto) 0.6 %; Lymphocytes # (auto) 1.12 K/uL (1.2-3.4); Lymphocytes % (auto) 15.8 %; Mean Corpuscular Hgb Conc 32.2 g/dL (32-36); Mean Corpuscular Volume 87.9 fL (80-100); Mean Platelet Volume 8.8 fL (7.4-10.4); Monocytes # (auto) 0.33 K/uL (0.11-0.59); Monocytes % (auto) 4.7 %; Neutrophils # (auto) 5.53 K/uL (1.4-6.5); Neutrophils % (auto) 78.2 %; Platelet Count 393 K/uL (130-400); RDW Coefficient of Variation 14.5 % (11.5-14.5); Red Blood Count 4.06 M/uL (4.2-5.4); White Blood Count 7.07 K/uL (4.8-10.8)
[2018-12-20 19:35] LABS: INR 1.2 (0.9-1.1); Prothrombin Time 12.1 Seconds (9.0-12.0)
[2018-12-20 19:38] LABS: Alanine Aminotransferase 21 U/L (12-78); Albumin Level 3.5 gm/dl (3.4-5.0); Aspartate Aminotransferase 16 U/L (15-37); BUN Creatinine Ratio 17.4 (10-20); Blood Urea Nitrogen 24 mg/dl (7-18); Calcium 9.4 mg/dl (8.5-10.1); Carbon Dioxide 32 mmol/L (21-32); Chloride 95 mmol/L (98-107); Creatinine Clr Calc Pharmacy 29.5 ml/min; Est GFR (African American) 42.2; Est GFR (Non-African American) 36.4; Glucose 223 mg/dl (70-99); Magnesium 1.1 mg/dl (1.8-2.4); Potassium 4.1 mmol/L (3.5-5.1); Sodium 133 mmol/L (136-145)
[2018-12-20 19:49] LABS: Albumin Globulin Ratio 0.9 (0.9-2); Alkaline Phosphatase 62 U/L (45-117); Bilirubin,Total 0.4 mg/dl (0.2-1); Globulin 4.1 gm/dl (2.5-4.0); NT Pro B Type Natriuretic Pept 3391 pg/ml (0-1800); Phosphorus 3.4 mg/dl (2.5-4.9); Total Protein 7.6 gm/dl (6.4-8.2); Troponin I < 0.015 ng/ml (0-0.045)
--- NOTE | 2018-12-20 20:00 | XRay Report ---
XR chest 1V portable CLINICAL HISTORY: Atypical chest pain COMPARISON STUDY: No previous studies for comparison. FINDINGS: Postsurgical changes are again evident. A valvular prosthetic ring is again visualized. The re is a persistent small right pleural effusion. There is improving aeration of the right lung base. There is diffuse elevation of interstitium, likely secondary to mild pulmonary vascular congestion[ IMPRESSION: 1. Radiographic evidence of mild pulmonary vascular congestion with a small right pleural effusion. N o evidence of lobar consolidation Electronically signed by: Juan Miguel Falk M.D. 12/20/2018 7:59 PM
[2018-12-20 20:02] LABS: T4 Free Thyroxine 1.77 ng/dl (0.8-1.6)
[2018-12-20] MEDS ORDERED: OPTIRAY 320 125ml IV PRN (20:02)
--- NOTE | 2018-12-20 20:13 | CT Scan Report ---
CT head/brain wo con CLINICAL HISTORY: Headache confusion COMPARISON STUDY: 08/22/2018 TECHNIQUE: Axial CT of the brain is performed from the vertex to the skull base. IV contrast was not administered for this examination. A dose lowering technique was utilized adhering to the principles of ALARA. CT DOSE: FINDINGS: No intra or extra-axial mass lesions are visualized. There is no CT evidence of acute cortical infarc tion. There is no evidence of midline shift. There is no acute hemorrhage. No calvarial fractures ar e visualized. There are patchy white matter hypodensities likely on a small vessel basis. There are persistent deep white matter infarcts in the right frontal lobe. There is no evidence of pathologic ventricular dilatation. There is a chronic left mastoid effusion. IMPRESSION: No acute intracranial findings. Electronically signed by: Juan Miguel Falk M.D. 12/20/2018 8:12 PM
[2018-12-20] MEDS: MAGNESIUM SULFATE / D5W 1 GM/100 ML BAG IV SCH ×2 (20:15→21:20)
--- NOTE | 2018-12-20 20:17 | CT Scan Report ---
CT angio neck with con CLINICAL HISTORY: Headache, confusion, possible acute stroke. COMPARISON STUDY: No previous studies for comparison. TECHNIQUE: CT angiography was performed from the aortic arch to the skull base. MIP imaging was perfo rmed. The patient was scanned in a dynamic helical fashion during intravenous administration of 118 c c of Optiray 320. A dose lowering technique was utilized adhering to the principles of ALARA. CT DOSE: 962.48 mGy.cm Technique: CT angiogram of the carotid and vertebral arteries was obtained using intravenous contrast and 3-D reconstruction. NASCET criteria was utilized. Findings: The visualized portions of the upper lung carlin reveal bilateral pleural effusions and mild septal e neela. There is a multinodular thyroid. There are mild atheromatous changes present at the level of each carotid bulb. The right carotid revealed no evidence of aneurysm and no evidence of dissection. There is no evidenc e of hemodynamic significant stenosis. The left carotid revealed no evidence of hemodynamic significant stenosis. There is no evidence of an eurysm. There is no evidence of dissection. There is no evidence of hemodynamically significant vertebral stenosis. There is no evidence of verte bral dissection. IMPRESSION: 1. No evidence of hemodynamically significant carotid or vertebral artery stenosis. No evidence of di ssection. 2. Evidence of congestive failure/fluid overload with small bilateral pleural effusions Electronically signed by: Juan Miguel Falk M.D. 12/20/2018 8:15 PM
--- NOTE | 2018-12-20 20:19 | CT Scan Report ---
CT angio head w con CLINICAL HISTORY: ROSA, confusion POSSIBLE ACUTE STROKE TECHNIQUE: CT angiography of the head was performed in a dynamic helical fashion during intravenous a dministration of 118 cc of Optiray 320. MIP imaging was performed. A dose lowering technique was util ized adhering to the principles of ALARA. CT DOSE: COMPARISON STUDY: Noncontrast head CT performed the same day FINDINGS: There are no lesion suspicious for aneurysm. There are no major intracranial branch occlusi ons. The dural venous sinuses appear patent. There are no pathologically enhancing masses. IMPRESSION: No significant abnormalities identified. Electronically signed by: Juan Miguel Falk M.D. 12/20/2018 8:17 PM
--- NOTE | 2018-12-20 21:33 | History & Physical Report ---
Date of Service December 20, 2018 Assessment & Plan (1) CVA (cerebral vascular accident): (2) Hypertensive urgency: (3) Headache: (4) Hypomagnesemia: (5) Pleural effusion: (6) Chronic diastolic CHF (congestive heart failure): (7) CAD (coronary artery disease): (8) Anemia due to chronic kidney disease: (9) Iron deficiency anemia: (10) Diabetic polyneuropathy: (11) Diabetes mellitus, type II: (12) Dyslipidemia: (13) Hypothyroidism: (14) Depression: CVA is suspected so far, will get an MRI, CT of the head and neck are negative, scan showed pulmonary congestion and small pleural effusions bilaterally, Lasix 60 mg IV every 12 ordered, 20 mg of IV labetalol for systolic blood pressure greater than 180, I suspect CVA but this could be a TIA versus hypertensive emergency. Permissive hypertension for now, neurology and nephrology evaluation. Replace electrolytes. Continue outpatient medications where appropriate and monitor daily labs. She has a slightly elevated for and a low TSH. Sliding scale insulin. Pain control. Inpatient status on telemetry likely to be here more than 2 midnights. ROS-+Headache, No Visual Changes, No Nausea, No Vomiting, No Fever, No Chills, No Neck Pain or Stiffness, No Chest Pain, No Palpitations, No SOB, No YIN, No Cough, No Sputum, No Wheezing, No Abdominal Pain, No Diarrhea, No Hematemesis, No Hemoptysis, positive weight loss over the last several months secondary to losing her taste, No Flank pain, No Melena, No Hematochezia, No Frequency, No Urgency, No Burning, No Hematuria, No Rashes, No Diaphoresis. Appetite is depressed, very weak Physical Exam Gen-AAO x 3, NAD, Afebrile, slow with long-term memory Head-NCAT, EOMI, PERRLA, Anicteric Sclera, No Posterior Pharyngeal Erythema Neck-Supple, No JVD, No Thyromegaly, No Masses, No LAD, No Bruits Lungs-Clear to Auscultation Bilaterally, No Rales, No Rhonchi, No Wheezing, No Crepitus Chest-No S4, +S1, +S2, No S3, No Murmurs, No Rubs, No Gallops, No Ectopy Abdomen-Soft, Bowel Sounds Present, Non Tender, Non Distended, No Hepatomegaly, No Splenomegaly, No Palpable Masses, No Rebound, No Rigidity, No Guarding Musculoskeletal-Full Range of Motion Bilaterally, No CVAT Extremities-No Cyanosis, No Clubbing, bilateral lymphedema Nuero-Cranial Nerves II-XII grossly intact, Motor WNL, DTRs WNL, upper extremities are weak bilaterally, Non Focal Psych-Normal Mood History of Present Illness 83-year-old female past medical history of hypertension, diabetes valvular heart disease, congestive heart failure, reflux disease, tract infections, Saturday, CKD 3, lymphedema was brought in by her family today. Children frequently check on her, said that she had a bad headache and was disoriented. Daughter took her blood pressure which was found to be in the 180s to 190. She called [facility] at home and relate the symptoms to the RN, she took her blood sugars was 238 and since she was not walking well and feeling well and was disoriented [facility] RN told her to go to the emergency room saw the patient in the emergency room her daughter and son and relayed the history. Past medical historyhypertension, diabetes, CVA TIA, hypothyroidism, valvular heart disease, congestive heart failure, GERD, TIA, flu, kidney 3, and lymphedema. Past surgical historymitral valve repair in 2012, appendectomy, cholecystectomy No known drug allergies Medications have been reviewed Family historymother of lung cancer and was a smoker, father of motor vehicle accident, one brother of age declines, another brother is alive with coronary disease, sister alive with degenerative joint disease, 2 healthy sons, daughter of Parkinson's disease or progressive supra nuclear palsy, 3 other healthy daughters that are alive Social history-occasional wine, lives with her , no tobacco, drugs Primary Care Provider: Suzanne Adams MD Allergies Allergy/AdvReac Type Severity Reaction Status Date / Time No Known Allergies Allergy Unverified 12/20/18 20:18 Home Medications Home Medications Medication Instructions Recorded Confirmed Type Lantus Solostar U-100 Insulin 14 unit SUBCUT QAM 08/22/18 12/20/18 History ascorbic acid (vitamin C) [Vitamin 500 mg PO QAM 08/22/18 12/20/18 History C] calcium carbonate [Calcium 600] 600 mg PO QDL 08/22/18 12/20/18 History carvedilol 25 mg PO BID 08/22/18 12/20/18 History cholecalciferol (vitamin D3) 2,000 unit PO QAM 08/22/18 12/20/18 History [Vitamin D3] clopidogrel [Plavix] 75 mg PO QAM 08/22/18 12/20/18 History ferrous sulfate 325 mg PO QDL 08/22/18 12/20/18 History levothyroxine 200 mcg PO QAM 08/22/18 12/20/18 History magnesium oxide 400 mg PO TID 08/22/18 12/20/18 History metformin 1,000 mg PO BID 08/22/18 12/20/18 History tramadol 50 mg PO HS PRN 08/22/18 12/20/18 History vitamin A 10,000 unit PO QAM 08/22/18 12/20/18 History zinc sulfate 220 mg PO QDL 08/22/18 12/20/18 History acetaminophen [Tylenol Extra 500 mg PO Q6H PRN 12/20/18 12/20/18 History Strength] hydralazine 50 mg PO TID 12/20/18 12/20/18 History omeprazole 20 mg PO QAM 12/20/18 12/20/18 History torsemide 40 mg PO QAM 12/20/18 12/20/18 History Past Med/Surg History Medical History CVA (cerebral vascular accident) (Chronic) Iron deficiency anemia (Chronic) Anemia due to chronic kidney disease (Chronic) Chronic diastolic CHF (congestive heart failure) (Chronic) CAD (coronary artery disease) (Chronic) Cardiac cath 2011 demonstrated nonobstructive disease Diabetic polyneuropathy (Chronic) Diabetes mellitus, type II (Chronic) Hypothyroidism (Chronic) GERD (gastroesophageal reflux disease) (Chronic) Dyslipidemia (Chronic) Hypertension (Chronic) Venous insufficiency of both lower extremities (Chronic) Depression (Chronic) Chronic kidney disease (CKD), stage III (moderate) (Chronic) Osteoporosis (Chronic) History of pleural effusion (Chronic) With multiple thoracentesis Surgical History S/P patent foramen ovale closure (Chronic) Status post hysterectomy (Chronic) Status post cholecystectomy (Chronic) Status post cataract extraction (Chronic) Status post mitral valve repair (Chronic) Family History Other Family history non-contributory Social History Preferred Language: Bulgarian Communication Ability: Effective Beliefs That Will Affect Care: None marital status: Current Living Situation: Spouse and Family current occupational status: retired Feels Safe at Home: Yes Smoking Status: Never smoker Second Hand Exposure: No Hx Alcohol Use: No Hx Substance Use: No Results & Data Vital Signs (Past 12 Hours) Vital Signs Temp Pulse Resp BP Pulse Ox 12/20/18 20:30 91 H 18 210/81 H 96 12/20/18 20:13 22 223/89 H 96 12/20/18 19:16 82 23 220/87 H 99 12/20/18 19:03 36.6 C 83 20 234/94 H 99 Allergies No Known Allergies Allergy (Unverified 12/20/18 20:18) Height/Weight/Isolation Height 5 ft 3 in Weight 65.6 kg Chemistry 12/20/18 18:59 Sodium 133 L Potassium 4.1 Chloride 95 L Carbon Dioxide 32 Anion Gap 6.0 BUN 24 H Creatinine 1.36 H Glucose 223 H (1) Headache Headache chronicity pattern: acute headache Headache type: unspecified Intractability: not intractable Qualified Code(s): R51 - Headache (2) Anemia due to chronic kidney disease Chronic kidney disease stage: stage 3 (moderate) Qualified Code(s): N18.3 - Chronic kidney disease, stage 3 (moderate); D63.1 - Anemia in chronic kidney disease (3) CAD (coronary artery disease) Coronary Disease-Associated Artery/Lesion type: [place] artery [place] vs. transplanted heart: [place] heart Associated angina: without angina Qualified Code(s): I25.10 - Atherosclerotic heart disease of [place] coronary artery without angina pectoris (4) Depression Depression Type: other depression Qualified Code(s): F32.89 - Other specified depressive episodes (5) Hypothyroidism Hypothyroidism type: unspecified Qualified Code(s): E03.9 - Hypothyroidism, unspecified (6) Diabetes mellitus, type II Diabetes mellitus pai gow manager insulin use: unspecified pai gow manager insulin use status Diabetes mellitus complication status: with kidney complications Diabetes mellitus complication detail: with chronic kidney disease Chronic kidney disease stage: stage 3 (moderate) Qualified Code(s): E11.22 - Type 2 diabetes mellitus with diabetic chronic kidney disease; N18.3 - Chronic kidney disease, stage 3 (moderate)
[2018-12-20] MEDS ORDERED: MoRPHine SULFATE 2 MG/ML CARP IV PRN (22:25)
[2018-12-20] MEDS ORDERED: CARBOHYDRATES FOR HYPOGLYCEMIA PO PRN (22:25)
[2018-12-20] MEDS ORDERED: LABETALOL HCL IV 5 MG/ML 20ML IV PRN (22:25)
[2018-12-20] MEDS ORDERED: ACETAMINOPHEN 325 MG TAB PO PRN (22:25)
[2018-12-20] MEDS ORDERED: GLUCOSE 10 TABS/TUBE PO PRN (22:25)
[2018-12-20] MEDS ORDERED: ONDANSETRON INJ 2 MG/ML 2 ML VIAL IV PRN (22:25)
[2018-12-20] MEDS ORDERED: POLYETHYLENE (MIRALAX) 17 GM PACK PO PRN (22:25)
[2018-12-20] MEDS ORDERED: ACETAMINOPHEN 500 MG TAB PO PRN (22:25)
[2018-12-20] MEDS ORDERED: GLUCOSE 40% GEL 15 GM TUBE PO PRN (22:25)
[2018-12-20] MEDS ORDERED: DEXTROSE 50% 50 ML SYRINGE IV PRN (22:25)
[2018-12-20] MEDS ORDERED: TRAMADOL HCL 50 MG TABLET PO PRN (22:25)
[2018-12-20] MEDS ORDERED: GLUCAGON FOR INJ 1 MG VIAL SQ PRN (22:25)
[2018-12-20] MEDS ORDERED: PHARMACY GLYCEMIC MGMT CONSULT PRN (23:30)
[2018-12-21] MEDS: FUROSEMIDE 60 MG in SYRINGE 0 ML IV SCH ×2 (00:15→06:17)
[2018-12-21] MEDS: NITROGLYCERIN 2% OINTMENT 30GM TUBE EXT SCH ×5 (01:24→23:57)
[2018-12-21] MEDS: MAGNESIUM OXIDE 400 MG TAB PO SCH ×4 (01:26→21:49)
[2018-12-21] MEDS: DULOXETINE HCL 60 MG CAP PO SCH ×2 (01:27→21:49)
[2018-12-21] MEDS: HydrALAZINE TAB 50 MG TAB PO SCH ×4 (01:27→21:48)
[2018-12-21] MEDS: CARVEDILOL 25 MG TAB PO SCH ×3 (01:27→21:50)
[2018-12-21] MEDS: INSULIN ASPART 100 UNITS/ML 3 ML PEN SC SCH ×6 (01:31→20:28)
[2018-12-21] MEDS: HEPARIN SOD 5,000 UNIT/0.5 ML VIAL SQ SCH ×3 (06:17→21:50)
[2018-12-21] MEDS ORDERED: LEVOTHYROXINE SODIUM 200 MCG TABLET PO SCH (06:30)
[2018-12-21 06:38] LABS: Appearance Urine Turbid (Clear); Bacteria Urine Automated 4+ (Negative); Bilirubin Urine Negative (Negative); Blood Urine 1+ (Negative); Color Urine Yellow; Epithelial Cell Urine Auto >30 /lpf (0-5); Glucose Urine UA Negative (Negative); Ketones Urine Negative (Negative); Leukocyte Esterase Urine 3+ (Negative); Nitrite Urine Positive (Negative); Specific Gravity Urine 1.018 (1.000-1.030); Urobilinogen Urine Negative (Negative); WBC Urine Automated >30 /hpf (0-5)
[2018-12-21 06:58] LABS: Protein Urine 2+ (Negative)
[2018-12-21 07:02] LABS: RBC Urine Automated 0-4 /hpf (0-4)
[2018-12-21 07:10] LABS: Hemoglobin 9.8 g/dL (12.0-16.0); Mean Corpuscular Hgb Conc 31.6 g/dL (32-36); Mean Corpuscular Volume 87.8 fL (80-100); Mean Platelet Volume 8.8 fL (7.4-10.4); Platelet Count 338 K/uL (130-400); RDW Coefficient of Variation 14.8 % (11.5-14.5); RDW Standard Deviation 47.8 fL (36.4-46.3); Red Blood Count 3.53 M/uL (4.2-5.4); White Blood Count 7.42 K/uL (4.8-10.8)
[2018-12-21 07:40] LABS: BUN Creatinine Ratio 19.3 (10-20); Calcium 8.6 mg/dl (8.5-10.1); Creatinine Clr Calc Pharmacy 30.1 ml/min; Est GFR (African American) 43.7; Est GFR (Non-African American) 37.7; Potassium 4.2 mmol/L (3.5-5.1)
[2018-12-21] MEDS: ASPIRIN 81 MG ECTAB PO SCH (07:57)
[2018-12-21] MEDS: CLOPIDOGREL BISULFATE 75 MG TAB PO SCH (07:57)
[2018-12-21] MEDS: CHOLECALCIFEROL 1,000 UNITS TAB PO SCH (07:57)
[2018-12-21] MEDS: PANTOprazole 40 MG TAB PO SCH (07:59)
[2018-12-21] MEDS: ATORVASTATIN 40 MG TAB PO SCH (07:59)
[2018-12-21] MEDS: ASCORBIC ACID 500 MG TAB PO SCH (07:59)
--- NOTE | 2018-12-21 08:48 | Neurology Consultation ---
Date of Consultation December 21, 2018 Assessment & Plan (1) Hypertensive encephalopathy: Ms. Jemma Gunter is an 83 year old woman admitted for intermittent encephalopathy and frontal headache which I believe is secondary to elevated blood pressures as SBP>220 mm Hg on admission (ie hypertensive encephalopathy) and possibly superimposed with a UTI. Patient symptoms have improved with treatment of her blood pressures and starting Abx for UTI. She is oriented and comprehension is intact. Neuro examine non focal. MRI brain reviewed and discussed with patient which is negative for acute stroke or intracranial process. Recommend gradual reduction in blood pressures with goal SBP<140, DBP <90. Wally with treatment of her UTI. Recommend PT/OT for discharge needs. Ok to discharge from neuro standpoint once blood pressures are controlled. Can follow up with PCP after discharge for blood pressure monitoring. Please call me with any further questions. (2) UTI (urinary tract infection): History of Present Illness Attending Physician: Darwin Paz MD History of Present Illness An 83 year old woman with multiple medical comorbidities including HTN, DM with diabetic polyneuropathy, CHF CKD 3 who was brought to the ED by family by family yesterday due to patient having a bad headache and was disoriented. Daughter reportedly took her blood pressure which was found to be in the 180s to 190. She called [facility] at home and relate the symptoms to the RN, she took her blood sugars was 238 and since she was not walking well and feeling well and was disoriented. Alanis RN told her to go to the emergency room. In the ED patient blood pressure were elevated > 220 mm Hg. She had a CT head which was negative. CTA head and neck showed no significant stenosis or LVO. Today she reports her headache is improved. Describes as a bifrontal pressure, 4/10. Denies pain in temporal head regions or jaw pain. She reports feeling better and states she does not feel confused any longer. Denies history fo clinical stroke or TIA althought states she had an MRI which showed old stroke. Lives with . Daughter helps her with her medications. Denies urinary symptoms. Allergies Allergy/AdvReac Type Severity Reaction Status Date / Time No Known Allergies Allergy Unverified 12/20/18 20:18 Home Medications Home Medications Medication Instructions Recorded Confirmed Type Lantus Solostar U-100 Insulin 14 unit SUBCUT QAM 08/22/18 12/20/18 History ascorbic acid (vitamin C) [Vitamin 500 mg PO QAM 08/22/18 12/20/18 History C] calcium carbonate [Calcium 600] 600 mg PO QDL 08/22/18 12/20/18 History carvedilol 25 mg PO BID 08/22/18 12/20/18 History cholecalciferol (vitamin D3) 2,000 unit PO QAM 08/22/18 12/20/18 History [Vitamin D3] clopidogrel [Plavix] 75 mg PO QAM 08/22/18 12/20/18 History ferrous sulfate 325 mg PO QDL 08/22/18 12/20/18 History levothyroxine 200 mcg PO QAM 08/22/18 12/20/18 History magnesium oxide 400 mg PO TID 08/22/18 12/20/18 History metformin 1,000 mg PO BID 08/22/18 12/20/18 History tramadol 50 mg PO HS PRN 08/22/18 12/20/18 History vitamin A 10,000 unit PO QAM 08/22/18 12/20/18 History zinc sulfate 220 mg PO QDL 08/22/18 12/20/18 History acetaminophen [Tylenol Extra 500 mg PO Q6H PRN 12/20/18 12/20/18 History Strength] hydralazine 50 mg PO TID 12/20/18 12/20/18 History omeprazole 20 mg PO QAM 12/20/18 12/20/18 History torsemide 40 mg PO QAM 12/20/18 12/20/18 History Patient History Medical History CVA (cerebral vascular accident) (Chronic) Iron deficiency anemia (Chronic) Anemia due to chronic kidney disease (Chronic) Chronic diastolic CHF (congestive heart failure) (Chronic) CAD (coronary artery disease) (Chronic) Cardiac cath 2011 demonstrated nonobstructive disease Diabetic polyneuropathy (Chronic) Diabetes mellitus, type II (Chronic) Hypothyroidism (Chronic) GERD (gastroesophageal reflux disease) (Chronic) Dyslipidemia (Chronic) Hypertension (Chronic) Venous insufficiency of both lower extremities (Chronic) Depression (Chronic) Chronic kidney disease (CKD), stage III (moderate) (Chronic) Osteoporosis (Chronic) History of pleural effusion (Chronic) With multiple thoracentesis Surgical History S/P patent foramen ovale closure (Chronic) Status post hysterectomy (Chronic) Status post cholecystectomy (Chronic) Status post cataract extraction (Chronic) Status post mitral valve repair (Chronic) Family History Other Family history non-contributory Social History Preferred Language: Pakistani Communication Ability: Effective Return Agent [place] Required: No Beliefs That Will Affect Care: None marital status: Current Living Situation: Spouse current occupational status: retired Other Information That Helps Us Care for You: No Feels Safe at Home: Yes Safety Concerns: Feels Safe At This Time Smoking Status: Never smoker Do You Dip or Chew Tobacco: No Second Hand Exposure: No Tobacco Cessation Education Requested by Patient: No Hx Alcohol Use: Yes Alcohol type: wine Hx Substance Use: No Physical Exam Physical Exam: EXAM: Constitutional: appearance normally developed, well nourished and non-obeseH ead and Face: normocephalic and atraumatic Eyes: normal lids, normal conjunctiva Neck: supple Respiratory: normal effort Cardiovascular: normal pulses Abdomen: non distended Skin: no rashes, lesions, or ulcers noted Psychiatric: normal judgement and insight, normal mood and normal affect NEUROLOGIC EXAMINATION: Appearance: no acute distress Orientation: awake, alert and oriented x 3 Mental Status: alert Memory: Ok Attention: normal Knowledge: appropriate Language: no aphasia Speech: no dysarthria Cranial Nerves: CN 2 - no visual defect on confrontation and pupils round, equal, reactive to light CN 3, 4, 6 - extra-ocular movements intact CN 5 - facial sensation intact CN 7 - no facial asymmetry CN 8 - intact hearing CN 9, 10 - palate symmetric CN 11 - good shoulder shrug CN 12 - tongue midline Gait: deferred Coordination: no ataxia with finger to nose testing, no tremor Sensory: intact and symmetric to light touch Muscle Tone: normal Muscle exam: 5/5 throughout Reflexes: 2+ at the knees, no clonus Results & Data Vital Signs (Past 12 Hours) Vital Signs Temp Pulse Pulse Resp BP BP BP 12/21/18 07:18 36.9 C 72 20 182/68 H 12/21/18 03:22 36.5 C 70 20 136/50 L 12/21/18 01:25 81 172/64 H 12/20/18 23:13 37.3 C 84 18 184/67 H 12/20/18 22:26 37.4 C 92 H 18 206/72 H 12/20/18 21:32 89 23 212/100 H 12/20/18 21:00 88 20 225/89 H Pulse Ox 12/21/18 07:18 100 12/21/18 03:22 98 12/21/18 01:25 12/20/18 23:13 100 12/20/18 22:26 98 12/20/18 21:32 99 12/20/18 21:00 97 Diagnostic Findings MRI Brain w/o contrast reviewed. My impression is chronic microvascular ischemic changes. No evidence of acute stroke.
[2018-12-21] MEDS ORDERED: INSULIN GLARGINE SOLOSTAR 100 UNITS/ML 3 ML PEN SQ SCH (09:00)
[2018-12-21] MEDS ORDERED: VITAMIN A 10000 UNIT PO SCH (09:00)
--- NOTE | 2018-12-21 10:27 | Magnetic Resonance Report ---
MR brain wo con HISTORY: Stroke. Mental status change. Suspect cva TECHNIQUE: Multiplanar multisequence MRI of the brain was performed without the use of contrast. COMPARISON STUDY: None. FINDINGS: There are no areas of restricted diffusion to suggest acute infarction. The midline structu res are intact. The paranasal sinuses are clear. The mastoid air cells are clear. The ventricles and sulci are within normal limits for age. There is no mass, hematoma, midline shift. The major vascular flow-voids at the skull base are well maintained. Age-related atrophy and chronic small vessel hu e. Slight compensatory prominence of the ventricular system. Mucosal thickening left mastoid air cells. IMPRESSION: 1. No acute intracranial abnormality. 2. Age-related atrophy and chronic small vessel change. 3. Mucosal thickening left mastoid air cells. The above report was generated using voice recognition software. It may contain grammatical, syntax or spelling errors. Electronically signed by: Vj Rinaldi M.D. 12/21/2018 10:26 AM
--- NOTE | 2018-12-21 10:29 | Nephrology Consultation ---
Date of Consultation December 21, 2018 Assessment & Plan (1) Hypertensive urgency: Patient presented with a systolic blood pressure of 230 with severe headache. Work-up for possible CVA is ongoing. CTA head and neck were negative but patient scheduled for MRI this morning. Blood pressure is better this morning with a systolic of 180. No need to aggressively lower the systolic blood pressure given concerns of possible CVA. Continue with Coreg and hydralazine.. Continue supportive management for the headache (2) Hypomagnesemia: Unclear etiology but likely due to poor p.o. intake. Monitor serum magnesium daily and supplement as needed with IV mag sulfate (3) Anemia due to chronic kidney disease: Hemoglobin of 9.8 today. This is close to the target range of 10-11. Will check iron levels if hemoglobin continues to drop. No need for BRANDAN at the moment. (4) Chronic kidney disease (CKD), stage III (moderate): Patient with the CKD stage III due to diabetic nephropathy. Baseline creatinine for 1.3. Renal function is close to baseline. Patient received IV contrast for the CTA of head and neck. She is at risk for contrast nephropathy. Hold Lasix today and resume tomorrow. Monitor renal function with daily BMP. And avoid further nephrotoxins. History of Present Illness Reason for Consultation: Hypertensive urgency, CKD 3 Requesting Physician: Edinson Soria MD Attending Physician: Darwin Paz MD History of Present Illness This is a 22-year-old female with past medical history of type 2 diabetes, CHF, valvular heart disease, CKD stage III with baseline creatinine of 1.3 who was admitted on 12/20/2018 with the severe headache and altered mental status. She was found to have uncontrolled hypertension with systolic blood pressure between 180-230. CVA was suspected. She had a CTA of head and neck which was negative for CVA. She is scheduled for MRI this morning. Her creatinine is fairly stable around 1.3 but she had magnesium of 1.1. Chest x-ray showed mild pulmonary vascular congestion. This morning she is complaining of severe headache which is frontal and on the left side. Her mental status has cleared. She denies any urinary symptoms such as dysuria, hematuria or frequency. She is denying any focal weakness. She also denies visual blurring. No vomiting or diarrhea. She denied NSAID use. She has been using Tylenol for the headache. She was doing physical therapy this morning and was able to ambulate with a walker to the bathroom. Allergies Allergy/AdvReac Type Severity Reaction Status Date / Time No Known Allergies Allergy Unverified 12/20/18 20:18 Home Medications Home Medications Medication Instructions Recorded Confirmed Type Lantus Solostar U-100 Insulin 14 unit SUBCUT QAM 08/22/18 12/20/18 History ascorbic acid (vitamin C) [Vitamin 500 mg PO QAM 08/22/18 12/20/18 History C] calcium carbonate [Calcium 600] 600 mg PO QDL 08/22/18 12/20/18 History carvedilol 25 mg PO BID 08/22/18 12/20/18 History cholecalciferol (vitamin D3) 2,000 unit PO QAM 08/22/18 12/20/18 History [Vitamin D3] clopidogrel [Plavix] 75 mg PO QAM 08/22/18 12/20/18 History ferrous sulfate 325 mg PO QDL 08/22/18 12/20/18 History levothyroxine 200 mcg PO QAM 08/22/18 12/20/18 History magnesium oxide 400 mg PO TID 08/22/18 12/20/18 History metformin 1,000 mg PO BID 08/22/18 12/20/18 History tramadol 50 mg PO HS PRN 08/22/18 12/20/18 History vitamin A 10,000 unit PO QAM 08/22/18 12/20/18 History zinc sulfate 220 mg PO QDL 08/22/18 12/20/18 History acetaminophen [Tylenol Extra 500 mg PO Q6H PRN 12/20/18 12/20/18 History Strength] hydralazine 50 mg PO TID 12/20/18 12/20/18 History omeprazole 20 mg PO QAM 12/20/18 12/20/18 History torsemide 40 mg PO QAM 12/20/18 12/20/18 History Patient History Medical History CVA (cerebral vascular accident) (Chronic) Iron deficiency anemia (Chronic) Anemia due to chronic kidney disease (Chronic) Chronic diastolic CHF (congestive heart failure) (Chronic) CAD (coronary artery disease) (Chronic) Cardiac cath 2011 demonstrated nonobstructive disease Diabetic polyneuropathy (Chronic) Diabetes mellitus, type II (Chronic) Hypothyroidism (Chronic) GERD (gastroesophageal reflux disease) (Chronic) Dyslipidemia (Chronic) Hypertension (Chronic) Venous insufficiency of both lower extremities (Chronic) Depression (Chronic) Chronic kidney disease (CKD), stage III (moderate) (Chronic) Osteoporosis (Chronic) History of pleural effusion (Chronic) With multiple thoracentesis Surgical History S/P patent foramen ovale closure (Chronic) Status post hysterectomy (Chronic) Status post cholecystectomy (Chronic) Status post cataract extraction (Chronic) Status post mitral valve repair (Chronic) Family History Other Family history non-contributory Social History Preferred Language: Macedonian Communication Ability: Effective Asset Management Coordinator Required: No Beliefs That Will Affect Care: None marital status: Current Living Situation: Spouse current occupational status: retired Other Information That Helps Us Care for You: No Feels Safe at Home: Yes Safety Concerns: Feels Safe At This Time Smoking Status: Never smoker Do You Dip or Chew Tobacco: No Second Hand Exposure: No Tobacco Cessation Education Requested by Patient: No Hx Alcohol Use: Yes Alcohol type: wine Hx Substance Use: No Review of Systems Review of Systems: All systems reviewed & are unremarkable except as noted in HPI & below Physical Exam Physical Exam: General exam: Appears comfortable, no acute distress HEENT: Pupils are equal and reactive to light Neck: No JVD, neck is supple trachea is midline Respiratory system: Clear breath sounds bilaterally. Gastrointestinal: Abdomen is soft, non distended, non tender, bowel sounds are present CVS: Regular rate and rhythm. No murmurs, rubs or gallops Musculoskeletal: No joint or muscle tenderness Extremities: Non tender, no edema, peripheral pulses are present Neuro: Oriented, no tremors, no focal neurological deficits Skin: No rashes Results & Data Vital Signs (Past 12 Hours) Vital Signs Temp Pulse Resp BP BP Pulse Ox 12/21/18 07:18 36.9 C 72 20 182/68 H 100 12/21/18 03:22 36.5 C 70 20 136/50 L 98 12/21/18 01:25 81 172/64 H 12/20/18 23:13 37.3 C 84 18 184/67 H 100 12/20/18 22:26 37.4 C 92 H 18 206/72 H 98 Laboratory Results Laboratory Results - last 24 hr 12/20/18 12/20/18 12/20/18 18:59 18:59 18:59 WBC 7.07 RBC 4.06 L Hgb 11.5 L Hct 35.7 L MCV 87.9 MCH 28.3 MCHC 32.2 RDW Std Deviation 47.0 H RDW Coeff of Rosalba 14.5 Plt Count 393 MPV 8.8 Immature Gran % (Auto) 0.6 Neut % (Auto) 78.2 Lymph % (Auto) 15.8 Barry % (Auto) 4.7 Eos % (Auto) 0.4 Baso % (Auto) 0.3 Immature Gran # (Auto) 0.04 H Neut # (Auto) 5.53 Lymph # (Auto) 1.12 L Barry # (Auto) 0.33 Eos # (Auto) 0.03 Baso # (Auto) 0.02 PT 12.1 H INR 1.2 H Sodium 133 L Potassium 4.1 Chloride 95 L Carbon Dioxide 32 Anion Gap 6.0 BUN 24 H Creatinine 1.36 H Est Cr Clr Drug Dosing 29.5 Est GFR ( Amer) 42.2 Est GFR (Non-Af Amer) 36.4 BUN/Creatinine Ratio 17.4 Glucose 223 H POC Glucose Estimat Average Glucose Hemoglobin A1c Calcium 9.4 Phosphorus 3.4 Magnesium 1.1 L Total Bilirubin 0.4 AST 16 ALT 21 Alkaline Phosphatase 62 Troponin I < 0.015 NT-Pro-B Natriuret Pep 3391 H Total Protein 7.6 Albumin 3.5 Globulin 4.1 H Albumin/Globulin Ratio 0.9 Lipase 22 L TSH 0.209 L Free T4 1.77 H Urine Color Urine Appearance Urine pH Ur Specific [place] Urine Protein Urine Glucose (UA) Urine Ketones Urine Blood Urine Nitrite Urine Bilirubin Urine Urobilinogen Ur Leukocyte Esterase Urine WBC (Auto) Urine RBC (Auto) U Hyaline Cast (Auto) U Epithel Cells (Auto) Urine Bacteria (Auto) Ur Renal Epithelial Cell 12/20/18 12/21/18 12/21/18 19:09 00:16 04:53 WBC RBC Hgb Hct MCV MCH MCHC RDW Std Deviation RDW Coeff of Rosalba Plt Count MPV Immature Gran % (Auto) Neut % (Auto) Lymph % (Auto) Barry % (Auto) Eos % (Auto) Baso % (Auto) Immature Gran # (Auto) Neut # (Auto) Lymph # (Auto) Barry # (Auto) Eos # (Auto) Baso # (Auto) PT INR Sodium Potassium Chloride Carbon Dioxide Anion Gap BUN Creatinine Est Cr Clr Drug Dosing Est GFR ( Amer) Est GFR (Non-Af Amer) BUN/Creatinine Ratio Glucose POC Glucose 211 H 245 H 88 Estimat Average Glucose Hemoglobin A1c Calcium Phosphorus Magnesium Total Bilirubin AST ALT Alkaline Phosphatase Troponin I NT-Pro-B Natriuret Pep Total Protein Albumin Globulin Albumin/Globulin Ratio Lipase TSH Free T4 Urine Color Urine Appearance Urine pH Ur Specific [place] Urine Protein Urine Glucose (UA) Urine Ketones Urine Blood Urine Nitrite Urine Bilirubin Urine Urobilinogen Ur Leukocyte Esterase Urine WBC (Auto) Urine RBC (Auto) U Hyaline Cast (Auto) U Epithel Cells (Auto) Urine Bacteria (Auto) Ur Renal Epithelial Cell 12/21/18 12/21/18 12/21/18 06:35 06:35 06:35 WBC 7.42 RBC 3.53 L Hgb 9.8 L Hct 31.0 L MCV 87.8 MCH 27.8 MCHC 31.6 L RDW Std Deviation 47.8 H RDW Coeff of Rosalba 14.8 H Plt Count 338 MPV 8.8 Immature Gran % (Auto) Neut % (Auto) Lymph % (Auto) Barry % (Auto) Eos % (Auto) Baso % (Auto) Immature Gran # (Auto) Neut # (Auto) Lymph # (Auto) Barry # (Auto) Eos # (Auto) Baso # (Auto) PT INR Sodium 137 Potassium 4.2 Chloride 98 Carbon Dioxide 33 H Anion Gap 6.0 BUN 26 H Creatinine 1.32 H Est Cr Clr Drug Dosing 30.1 Est GFR ( Amer) 43.7 Est GFR (Non-Af Amer) 37.7 BUN/Creatinine Ratio 19.3 Glucose 86 POC Glucose Estimat Average Glucose Pending Hemoglobin A1c Pending Calcium 8.6 Phosphorus Magnesium Total Bilirubin AST ALT Alkaline Phosphatase Troponin I NT-Pro-B Natriuret Pep Total Protein Albumin Globulin Albumin/Globulin Ratio Lipase TSH Free T4 Urine Color Urine Appearance Urine pH Ur Specific [place] Urine Protein Urine Glucose (UA) Urine Ketones Urine Blood Urine Nitrite Urine Bilirubin Urine Urobilinogen Ur Leukocyte Esterase Urine WBC (Auto) Urine RBC (Auto) U Hyaline Cast (Auto) U Epithel Cells (Auto) Urine Bacteria (Auto) Ur Renal Epithelial Cell 12/21/18 12/21/18 07:19 Unknown WBC RBC Hgb Hct MCV MCH MCHC RDW Std Deviation RDW Coeff of Rosalba Plt Count MPV Immature Gran % (Auto) Neut % (Auto) Lymph % (Auto) Barry % (Auto) Eos % (Auto) Baso % (Auto) Immature Gran # (Auto) Neut # (Auto) Lymph # (Auto) Barry # (Auto) Eos # (Auto) Baso # (Auto) PT INR Sodium Potassium Chloride Carbon Dioxide Anion Gap BUN Creatinine Est Cr Clr Drug Dosing Est GFR ( Amer) Est GFR (Non-Af Amer) BUN/Creatinine Ratio Glucose POC Glucose 103 H Estimat Average Glucose Hemoglobin A1c Calcium Phosphorus Magnesium Total Bilirubin AST ALT Alkaline Phosphatase Troponin I NT-Pro-B Natriuret Pep Total Protein Albumin Globulin Albumin/Globulin Ratio Lipase TSH Free T4 Urine Color Yellow Urine Appearance Turbid A Urine pH 8.0 H Ur Specific [place] 1.018 Urine Protein 2+ H Urine Glucose (UA) Negative Urine Ketones Negative Urine Blood 1+ H Urine Nitrite Positive A Urine Bilirubin Negative Urine Urobilinogen Negative Ur Leukocyte Esterase 3+ H Urine WBC (Auto) >30 H Urine RBC (Auto) 0-4 U Hyaline Cast (Auto) 1-5 U Epithel Cells (Auto) >30 H Urine Bacteria (Auto) 4+ H Ur Renal Epithelial Cell Not Reportable (1) Anemia due to chronic kidney disease Chronic kidney disease stage: stage 3 (moderate) Qualified Code(s): N18.3 - Chronic kidney disease, stage 3 (moderate); D63.1 - Anemia in chronic kidney disease
[2018-12-21] MEDS: cefTRIAXone SODIUM 1,000 MG in DEXTROSE 5% 50 ML IV SCH (11:22)
[2018-12-21] MEDS ORDERED: ZINC SULFATE 220 MG CAPSULE PO SCH (11:30)
--- NOTE | 2018-12-21 11:39 | Pharmacy Report ---
Glycemic Control Consultation - Date of Service December 21, 2018 - Scope Scope: Glycemic Pharmacist consulted by Dr Neves on 12/20/18 for glycemic control and to write orders per [facility] inpatient glycemic control protocol - Objective Weight: 63.8 kg Accuchecks BSG (last 24hrs): 12/20/18 12/20/18 12/21/18 18:59 19:09 00:16 Glucose 223 H POC Glucose 211 H 245 H 12/21/18 12/21/18 12/21/18 04:53 06:35 07:19 Glucose 86 POC Glucose 88 103 H 12/21/18 11:05 Glucose POC Glucose 181 H Laboratory Data (last 24hrs): 12/20/18 12/21/18 18:59 06:35 Potassium 4.1 4.2 Carbon Dioxide 32 33 H Anion Gap 6.0 6.0 Creatinine 1.36 H 1.32 H Est Cr Clr Drug Dosing 29.5 30.1 - Recent Pertinent Medications Outpatient Anti-diabetic Regimen: * Lantus 14 units QAM * Metformin 1g PO BID * A1c = 9.9 % 01/08/18, new A1c pending Risk Factors for Insulin Resistance: * Infection: IV Rocephin * Diet: Type 2 DM - Assessment & Plan Assessment & Plan: ASSESSMENT: * 83 year old female admitted for persistent headaches, disorientation, evaluating for CVA * Type 2 diabetic, started home dose of Lantus and will tighten CF and CR further for BSG of 181mg/dl prior to lunch. * Pt is also maintained on oral antidiabetic agents as an outpatient * Oral agents are not recommended for inpatient use d/t drug interactions, changing PO intake, and difficulty titrating for acute hyper/hypoglycemia. ADA recommends re-initiating outpatient oral agents 1-2 days prior to discharge if/when appropriate if they were held on admission. PLAN FOR INPATIENT GLYCEMIC CONTROL: * Holding outpatient oral diabetes medications * Basal insulin * Lantus 14 units SQ BID * Bolus insulin * NovoLog per scale ACHS or Q6hrs while NPO * Goal Range: Low 120 mg/dL - High 150 mg/dL - for patient's age, A1c and CC * Correction Factor: 30 mg/dL/unit * Nutritional / Prandial insulin per carb ratio of 1 unit per 10 grams CHO consumed * Please note that the plan above was derived based on current level of insulin resistance and hospital stress. These recommendations are appropriate for inpatient admission only. Plan of care upon discharge will need to be reassessed to avoid potential outpatient hypo/hyperglycemia. Thank you.
[2018-12-21] MEDS: FERROUS SULFATE 325 MG TAB PO SCH (11:52)
[2018-12-21] MEDS: CALCIUM 600MG + VIT D 400 IU TAB PO SCH (11:52)
--- NOTE | 2018-12-21 15:23 | Hospitalist Progress Note ---
Date of Service December 21, 2018 Assessment & Plan (1) Hypertensive urgency: Hypertensive urgency Headache likely secondary to elevated blood pressure BRAIN MRI: No acute intracranial abnormality. Age-related atrophy and chronic small vessel change. Mucosal thickening left mastoid air cells. Continue hydralazine, Coreg Monitor blood pressure Appreciate nephrology input Metabolic encephalopathy Likely secondary to hypertensive encephalopathy, UTI MRI brain no acute findings Head CTA:No significant abnormalities identified. Neck CTA:No evidence of hemodynamically significant carotid or vertebral artery stenosis. No evidence of dissection. Evidence of congestive failure/fluid overload with small bilateral pleural effusions Mental status back to baseline No focal deficits on exam Patient neurology input Monitor Urinary tract infection Denies any UTI symptoms Continue Rocephin empirically Urine culture: Pending Hypomagnesemia Replace electrolytes as needed Anemia of chronic disease Hemoglobin at baseline We will check iron studies, if hemoglobin drops CKD III Baseline creatinine 1.3 Monitor renal function Avoid nephrotoxic agents as able Plan to resume diuretics tomorrow DM II: Last hemoglobin A1c 9.9 Update A1c Hold metformin Continue insulin therapy Pharmacy consulted for glycemic management H/O CVA Continue aspirin, Lipitor H/O Diastolic CHF Chronic venous insufficiency Plan to resume diuretics tomorrow Hypothyroidism TSH:0.2 Free T4:1.77 Will decrease Levothyroxine to 175 mcg We will need repeat thyroid function test as outpatient GERD Continue PPI Depression Continue Cymbalta DVT Px: Heparin SQ Code Status Full code Disposition: PT /OT prior to discharge Subjective Patient is seen and examined at bedside Confusion seems to be have resolved Denies any dysuria, increased urinary frequency Headache, frontal, improved from yesterday Denies any chest pain, shortness of breath, dizziness, change in vision, nausea, abdominal pain Discussed with neurology today Blood pressure better Foul-smelling urine as per dental intern of Systems Review of Systems: All systems reviewed & are unremarkable except as noted in HPI & below Physical Exam Physical Exam: Physical Exam: Vitals signs as noted above General Appearance:Moderately built and nourished, no apparent distress Head: normocephalic, Atraumatic Eyes: normal inspection, EOMI Neck: supple, Trachea midline Respiratory/Chest: Normal breath sounds, CTA Cardiovascular: S1, S2, No murmur Abdomen/GI:Soft, Non tender, Bowel sounds present Extremities/Musculoskelatal:normal inspection, 2+ B/L LE edema Neurologic/Psych:AAOX3, grossly no focal neurological deficits Skin: normal color, warm Results & Data Vital Signs (Past 12 Hours) Vital Signs Temp Pulse Pulse Pulse Resp BP Pulse Ox 12/21/18 11:06 36.5 C 66 16 157/65 H 100 12/21/18 10:58 71 12/21/18 07:18 36.9 C 72 20 182/68 H 100 12/21/18 03:22 36.5 C 70 20 136/50 L 98 Laboratory Results Short CBC 12/20/18 12/21/18 Range/Units 18:59 06:35 WBC 7.07 7.42 (4.8-10.8) K/uL Hgb 11.5 L 9.8 L (12.0-16.0) g/dL Hct 35.7 L 31.0 L (37-47) % Plt Count 393 338 (130-400) K/uL BMP 12/20/18 12/21/18 18:59 06:35 Sodium 133 L 137 Potassium 4.1 4.2 Chloride 95 L 98 Carbon Dioxide 32 33 H BUN 24 H 26 H Creatinine 1.36 H 1.32 H Glucose 223 H 86 Calcium 9.4 8.6 Cardiac Enzymes 12/20/18 Range/Units 18:59 Troponin I < 0.015 (0-0.045) ng/ml Liver Function 12/20/18 Range/Units 18:59 Total Bilirubin 0.4 (0.2-1) mg/dl AST 16 (15-37) U/L ALT 21 (12-78) U/L Alkaline Phosphatase 62 (45-117) U/L Albumin 3.5 (3.4-5.0) gm/dl Urine 12/21/18 Range/Units Unknown Urine Color Yellow Urine Appearance Turbid A (Clear) Urine pH 8.0 H (4.5-7.5) Ur Specific [place] 1.018 (1.000-1.030) Urine Protein 2+ H (Negative) Urine Glucose (UA) Negative (Negative) Diagnostic Findings Brain: 1. No acute intracranial abnormality. 2. Age-related atrophy and chronic small vessel change. 3. Mucosal thickening left mastoid air cells.
[2018-12-22] MEDS: NITROGLYCERIN 2% OINTMENT 30GM TUBE EXT SCH ×5 (00:53→22:54)
[2018-12-22] MEDS: LEVOTHYROXINE SODIUM 175 MCG TABLET PO SCH (06:04)
[2018-12-22] MEDS: HEPARIN SOD 5,000 UNIT/0.5 ML VIAL SQ SCH ×3 (06:04→21:43)
[2018-12-22 06:29] LABS: Estimated Average Glucose 243 mg/dl; Hemoglobin A1C 10.1 % (4.5-5.6)
[2018-12-22 07:24] LABS: Hematocrit (blood only) 33.4 % (37-47); Hemoglobin 10.7 g/dL (12.0-16.0)
[2018-12-22] MEDS ORDERED: INSULIN ASPART 100 UNITS/ML 3 ML PEN SC ONE (07:45)
[2018-12-22 07:50] LABS: BUN Creatinine Ratio 16.9 (10-20); Calcium 9.1 mg/dl (8.5-10.1); Creatinine Clr Calc Pharmacy 24.2 ml/min; Est GFR (African American) 37.2; Est GFR (Non-African American) 32.1; Potassium 3.8 mmol/L (3.5-5.1)
[2018-12-22] MEDS: cefTRIAXone SODIUM 1,000 MG in DEXTROSE 5% 50 ML IV SCH (08:06)
[2018-12-22] MEDS: ASPIRIN 81 MG ECTAB PO SCH (08:07)
[2018-12-22] MEDS: CARVEDILOL 25 MG TAB PO SCH ×2 (08:07→21:44)
[2018-12-22] MEDS: CHOLECALCIFEROL 1,000 UNITS TAB PO SCH (08:07)
[2018-12-22] MEDS: CLOPIDOGREL BISULFATE 75 MG TAB PO SCH (08:08)
[2018-12-22] MEDS: ATORVASTATIN 40 MG TAB PO SCH (08:08)
[2018-12-22] MEDS: ASCORBIC ACID 500 MG TAB PO SCH (08:08)
[2018-12-22] MEDS: MAGNESIUM OXIDE 400 MG TAB PO SCH ×3 (08:08→21:43)
[2018-12-22] MEDS: HydrALAZINE TAB 50 MG TAB PO SCH ×3 (08:08→21:43)
[2018-12-22] MEDS: PANTOprazole 40 MG TAB PO SCH (08:08)
[2018-12-22] MEDS ORDERED: NIFEdipine EXTENDED REL 30 MG TABCR PO STA (08:39)
[2018-12-22] MEDS ORDERED: INSULIN GLARGINE SOLOSTAR 100 UNITS/ML 3 ML PEN SC ONE (09:00)
[2018-12-22] MEDS: INSULIN ASPART 100 UNITS/ML 3 ML PEN SC SCH ×3 (11:40→21:42)
[2018-12-22] MEDS: CALCIUM 600MG + VIT D 400 IU TAB PO SCH (11:41)
[2018-12-22] MEDS: FERROUS SULFATE 325 MG TAB PO SCH (11:41)
--- NOTE | 2018-12-22 16:34 | Hospitalist Progress Note ---
Date of Service December 22, 2018 Assessment & Plan (1) Hypertensive urgency: Hypertensive urgency Headache likely secondary to elevated blood pressure BRAIN MRI: No acute intracranial abnormality. Age-related atrophy and chronic small vessel change. Mucosal thickening left mastoid air cells. Continue hydralazine, Coreg Monitor blood pressure Appreciate nephrology input Monitor blood pressure Metabolic encephalopathy Likely secondary to hypertensive encephalopathy, UTI MRI brain no acute findings Head CTA:No significant abnormalities identified. Neck CTA:No evidence of hemodynamically significant carotid or vertebral artery stenosis. No evidence of dissection. Evidence of congestive failure/fluid overload with small bilateral pleural effusions Mental status back to baseline Appreciate neurology input Monitor Urinary tract infection Denies any UTI symptoms Continue Rocephin Day #2 Urine culture: E.Coli Hypomagnesemia Replace electrolytes as needed Anemia of chronic disease Hemoglobin at baseline Check iron studies, if hemoglobin drops CKD III Baseline creatinine 1.3 Monitor renal function Avoid nephrotoxic agents as able Plan to resume home diuretics when Cr better DM II: Hb A1c:10.1 Hold metformin Continue insulin therapy Pharmacy consulted for glycemic management May need to discontinue metformin upon discharge due to renal insufficiency H/O CVA Continue aspirin, Lipitor H/O Diastolic CHF Chronic venous insufficiency Resume diuretics as able Hypothyroidism TSH:0.2 Free T4:1.77 Will decrease Levothyroxine to 175 mcg We will need repeat thyroid function test as outpatient GERD Continue PPI Depression Continue Cymbalta DVT Px: Heparin SQ Code Status Full code Disposition: PT /OT: Recommends return home Subjective Patient is seen and examined at bedside Patient was hypoglycemic overnight Offers no complaints this morning Urine culture growing E. coli Mental status at baseline Creatinine level slightly elevated Denies any chest pain, SOB, dizziness, nausea, abdominal pain Review of Systems Review of Systems: All systems reviewed & are unremarkable except as noted in HPI & below Physical Exam Physical Exam: Physical Exam: Vitals signs as noted above General Appearance:Moderately built and nourished, no apparent distress Head: normocephalic, Atraumatic Eyes: normal inspection, EOMI Neck: supple, Trachea midline Respiratory/Chest: Normal breath sounds, CTA Cardiovascular: S1, S2, No murmur Abdomen/GI:Soft, Non tender, Bowel sounds present Extremities/Musculoskelatal:normal inspection, 2+ B/L LE edema Neurologic/Psych:AAOX3, grossly no focal neurological deficits Skin: normal color, warm Results & Data Vital Signs (Past 12 Hours) Vital Signs Temp Pulse Pulse Resp BP BP Pulse Ox 12/22/18 15:30 36.3 C L 65 100 12/22/18 15:26 66 169/69 H 12/22/18 14:14 63 176/63 H 169/72 H 12/22/18 11:36 36.3 C L 65 16 125/65 96 12/22/18 07:07 36.3 C L 66 19 191/63 H 99 12/22/18 06:11 174/73 H Laboratory Results Short CBC 12/20/18 12/21/18 12/22/18 Range/Units 18:59 06:35 07:15 Hgb (12.0-16.0) g/dL Hct (37-47) % Creatinine 1.36 H 1.32 H 1.51 H (0.6-1.2) mg/dl 12/22/18 Range/Units 07:15 Hgb 10.7 L (12.0-16.0) g/dL Hct 33.4 L (37-47) % Creatinine (0.6-1.2) mg/dl BMP 12/22/18 07:15 Sodium 135 L Potassium 3.8 Chloride 96 L Carbon Dioxide 33 H BUN 26 H Creatinine 1.51 H Glucose 229 H Calcium 9.1
[2018-12-22] MEDS: DULOXETINE HCL 60 MG CAP PO SCH (21:43)
--- NOTE | 2018-12-22 21:47 | Nephrology Progress Note ---
Date of Service December 22, 2018 Assessment & Plan (1) Hypertensive urgency: Patient presented with a systolic blood pressure of 230 with severe headache. Work-up for possible CVA is ongoing. CTA head and neck were negative. Also negative MRI. Blood pressure is still high. Will add amlodipine 10mg daily. Continue with Coreg and hydralazine.. Continue supportive management for the headache (2) Hypomagnesemia: Unclear etiology but likely due to poor p.o. intake. Monitor serum magnesium daily and supplement as needed with IV mag sulfate (3) Anemia due to chronic kidney disease: Hemoglobin is close to the target range of 10-11. Will check iron levels if hemoglobin continues to drop. No need for BRANDAN at the moment. (4) Chronic kidney disease (CKD), stage III (moderate): Patient with the CKD stage III due to diabetic nephropathy. Baseline creatinine for 1.3. Cr 1.5 today. Patient received IV contrast for the CTA of head and neck. She is at risk for contrast nephropathy. Will resume lasix tomorrow. Monitor renal function with daily BMP. And avoid further nephrotoxins. Subjective Patient in the morning during rounds. Has mild headache. Has loose BMs. No SOB. BP still fluctuating Review of Systems Review of Systems: All systems reviewed & are unremarkable except as noted in HPI & below Physical Exam Physical Exam: General exam: Appears comfortable, no acute distress HEENT: Pupils are equal and reactive to light Neck: No JVD, neck is supple trachea is midline Respiratory system: Clear breath sounds bilaterally. Gastrointestinal: Abdomen is soft, non distended, non tender, bowel sounds are present CVS: Regular rate and rhythm. No murmurs, rubs or gallops Musculoskeletal: No joint or muscle tenderness Extremities: Non tender, no edema, peripheral pulses are present Neuro: Oriented, no tremors, no focal neurological deficits Skin: No rashes Results & Data Vital Signs (Past 12 Hours) Vital Signs Temp Pulse Pulse Pulse Resp BP BP 12/22/18 18:48 36.4 C L 73 16 198/71 H 12/22/18 15:30 36.3 C L 65 12/22/18 15:26 66 169/69 H 12/22/18 14:20 67 12/22/18 14:14 63 176/63 H 169/72 H 12/22/18 11:36 36.3 C L 65 16 125/65 Pulse Ox 12/22/18 18:48 97 12/22/18 15:30 100 12/22/18 15:26 12/22/18 14:20 12/22/18 14:14 12/22/18 11:36 96 Laboratory Results Laboratory Results - last 24 hr 12/21/18 12/21/18 12/22/18 06:35 23:58 00:02 Hgb Hct Sodium Potassium Chloride Carbon Dioxide Anion Gap BUN Creatinine Est Cr Clr Drug Dosing Est GFR ( Amer) Est GFR (Non-Af Amer) BUN/Creatinine Ratio Glucose POC Glucose 38 L* 39 L* Estimat Average Glucose 243 Hemoglobin A1c 10.1 H Calcium 12/22/18 12/22/18 12/22/18 00:15 03:35 07:15 Hgb Hct Sodium 135 L Potassium 3.8 Chloride 96 L Carbon Dioxide 33 H Anion Gap 7.0 BUN 26 H Creatinine 1.51 H Est Cr Clr Drug Dosing 24.2 Est GFR ( Amer) 37.2 Est GFR (Non-Af Amer) 32.1 BUN/Creatinine Ratio 16.9 Glucose 229 H POC Glucose 213 H 249 H Estimat Average Glucose Hemoglobin A1c Calcium 9.1 12/22/18 12/22/18 12/22/18 07:15 07:25 11:36 Hgb 10.7 L Hct 33.4 L Sodium Potassium Chloride Carbon Dioxide Anion Gap BUN Creatinine Est Cr Clr Drug Dosing Est GFR ( Amer) Est GFR (Non-Af Amer) BUN/Creatinine Ratio Glucose POC Glucose 225 H 208 H Estimat Average Glucose Hemoglobin A1c Calcium 12/22/18 12/22/18 16:33 20:47 Hgb Hct Sodium Potassium Chloride Carbon Dioxide Anion Gap BUN Creatinine Est Cr Clr Drug Dosing Est GFR ( Amer) Est GFR (Non-Af Amer) BUN/Creatinine Ratio Glucose POC Glucose 108 H 174 H Estimat Average Glucose Hemoglobin A1c Calcium (1) Anemia due to chronic kidney disease Chronic kidney disease stage: stage 3 (moderate) Qualified Code(s): N18.3 - Chronic kidney disease, stage 3 (moderate); D63.1 - Anemia in chronic kidney disease
[2018-12-22] MEDS ORDERED: AMLODIPINE BESYLATE 5 MG TAB PO ONE (21:48)
[2018-12-23] MEDS: LEVOTHYROXINE SODIUM 175 MCG TABLET PO SCH (05:35)
[2018-12-23] MEDS: HEPARIN SOD 5,000 UNIT/0.5 ML VIAL SQ SCH ×3 (05:35→22:06)
[2018-12-23] MEDS: NITROGLYCERIN 2% OINTMENT 30GM TUBE EXT SCH ×4 (05:35→23:23)
[2018-12-23 06:05] LABS: BUN Creatinine Ratio 16.1 (10-20); Calcium 8.6 mg/dl (8.5-10.1); Creatinine Clr Calc Pharmacy 20.7 ml/min; Est GFR (African American) 30.9; Est GFR (Non-African American) 26.7; Potassium 4.3 mmol/L (3.5-5.1)
[2018-12-23] MEDS: ATORVASTATIN 40 MG TAB PO SCH (08:28)
[2018-12-23] MEDS: ASPIRIN 81 MG ECTAB PO SCH (08:28)
[2018-12-23] MEDS: ASCORBIC ACID 500 MG TAB PO SCH (08:28)
[2018-12-23] MEDS: HydrALAZINE TAB 50 MG TAB PO SCH ×3 (08:28→21:10)
[2018-12-23] MEDS: MAGNESIUM OXIDE 400 MG TAB PO SCH ×3 (08:29→20:59)
[2018-12-23] MEDS: CLOPIDOGREL BISULFATE 75 MG TAB PO SCH (08:29)
[2018-12-23] MEDS: CHOLECALCIFEROL 1,000 UNITS TAB PO SCH (08:29)
[2018-12-23] MEDS: PANTOprazole 40 MG TAB PO SCH (08:29)
[2018-12-23] MEDS: CARVEDILOL 25 MG TAB PO SCH ×2 (08:29→22:06)
[2018-12-23] MEDS: INSULIN ASPART 100 UNITS/ML 3 ML PEN SC SCH ×4 (08:34→21:19)
[2018-12-23] MEDS: cefTRIAXone SODIUM 1,000 MG in DEXTROSE 5% 50 ML IV SCH (08:48)
[2018-12-23] MEDS: INSULIN GLARGINE SOLOSTAR 100 UNITS/ML 3 ML PEN SC SCH (08:52)
[2018-12-23] MEDS: CALCIUM 600MG + VIT D 400 IU TAB PO SCH (12:04)
[2018-12-23] MEDS: FERROUS SULFATE 325 MG TAB PO SCH (12:04)
--- NOTE | 2018-12-23 12:29 | Pharmacy Report ---
Pharmacy Glycemic Short Note 2 - Date of Service December 23, 2018 - Glycemic Short BSG Results (Last 24 hours): 12/22/18 12/22/18 12/22/18 11:36 16:33 20:47 Glucose POC Glucose 208 H 108 H 174 H 12/23/18 12/23/18 12/23/18 00:38 05:04 08:07 Glucose 145 H POC Glucose 195 H 161 H 12/23/18 12:04 Glucose POC Glucose 160 H OUTPATIENT ANTIDIABETIC REGIMEN: * Lantus 14 QAM, Metformin 1gm BIDM ASSESSMENT: * She had some concerning lows overnight 12/21-12/22, BSGs in the upper 30s. That AM i scaled back significantly on her basal and correctional insulin. Since then, she's had some mild hyperglycemia but overall controlled. Lows are likely attributable to fluctuations in PO status. She had been receiving her home Rx of lantus 14u QAM PLAN FOR INPATIENT GLYCEMIC CONTROL: * Hold outpatient oral diabetes medications * Basal insulin * Lantus 8u QAM * Bolus insulin * NovoLog per scale ACHS or Q6hrs while NPO * Goal Range: Low 120 mg/dL - High 150 mg/dL * Correction Factor: 35 mg/dL/unit * Nutritional / Prandial insulin per carb ratio of 1 unit per 12 grams CHO consumed PLAN FOR DISCHARGE: * Would continue her home Rx of lantus 14u QAM, assuming her PO intake remains consistent * Add Novolog 4u TIDM * D/C metformin: GFR has been consistently close to 30. this is a contraindication.
--- NOTE | 2018-12-23 15:58 | Nephrology Progress Note ---
Date of Service December 23, 2018 Assessment & Plan (1) Hypertensive urgency: Patient presented with a systolic blood pressure of 230 with severe headache. Work-up for possible CVA was negative. CTA head and neck were negative. Also negative MRI. Blood pressure is controlled now. Continue with Coreg and hydralazine.. Continue supportive management for the headache/tinnitus. She will need to see ENT after d/c (2) Hypomagnesemia: Unclear etiology but likely due to poor p.o. intake. Monitor serum magnesium daily and supplement as needed with IV mag sulfate (3) Anemia due to chronic kidney disease: Hemoglobin is close to the target range of 10-11. Will check iron levels if hemoglobin continues to drop. No need for BRANDAN at the moment. (4) Chronic kidney disease (CKD), stage III (moderate): Patient with the CKD stage III due to diabetic nephropathy. Baseline creatinine for 1.3. Cr 1.7 today. Patient received IV contrast for the CTA of head and neck. She is at risk for contrast nephropathy. Will resume torsemide towards discharge. Monitor renal function with daily BMP. And avoid further nephrotoxins. Subjective Patient seen in follow up during morning rounds. She feels better. Reports tinnitus. No SOB. has mild leg swelling Review of Systems Review of Systems: All systems reviewed & are unremarkable except as noted in HPI & below Physical Exam Physical Exam: General exam: Appears comfortable, no acute distress HEENT: Pupils are equal and reactive to light Neck: No JVD, neck is supple trachea is midline Respiratory system: Clear breath sounds bilaterally. Gastrointestinal: Abdomen is soft, non distended, non tender, bowel sounds are present CVS: Regular rate and rhythm. No murmurs, rubs or gallops Musculoskeletal: No joint or muscle tenderness Extremities: Non tender, 1+ edema, peripheral pulses are present Neuro: Oriented, no tremors, no focal neurological deficits Skin: No rashes Results & Data Vital Signs (Past 12 Hours) Vital Signs Temp Pulse Pulse Resp BP Pulse Ox 12/23/18 15:34 36.4 C L 70 18 107/61 98 12/23/18 07:28 36.6 C 72 18 132/61 97 12/23/18 05:34 69 135/63 Laboratory Results Laboratory Results - last 24 hr 12/22/18 12/22/18 12/23/18 16:33 20:47 00:38 Sodium Potassium Chloride Carbon Dioxide Anion Gap BUN Creatinine Est Cr Clr Drug Dosing Est GFR ( Amer) Est GFR (Non-Af Amer) BUN/Creatinine Ratio Glucose POC Glucose 108 H 174 H 195 H Calcium 12/23/18 12/23/18 12/23/18 05:04 08:07 12:04 Sodium 136 Potassium 4.3 Chloride 98 Carbon Dioxide 31 Anion Gap 7.0 BUN 28 H Creatinine 1.76 H Est Cr Clr Drug Dosing 20.7 Est GFR ( Amer) 30.9 Est GFR (Non-Af Amer) 26.7 BUN/Creatinine Ratio 16.1 Glucose 145 H POC Glucose 161 H 160 H Calcium 8.6 (1) Anemia due to chronic kidney disease Chronic kidney disease stage: stage 3 (moderate) Qualified Code(s): N18.3 - Chronic kidney disease, stage 3 (moderate); D63.1 - Anemia in chronic kidney disease
--- NOTE | 2018-12-23 18:06 | Hospitalist Progress Note ---
Date of Service December 23, 2018 Assessment & Plan (1) Hypertensive urgency: Hypertensive Emergency Headache likely secondary to elevated blood pressure BRAIN MRI: No acute intracranial abnormality. Age-related atrophy and chronic small vessel change. Mucosal thickening left mastoid air cells. Continue hydralazine, Coreg Monitor blood pressure Appreciate nephrology input Monitor blood pressure Metabolic encephalopathy:Resolved Likely secondary to hypertensive encephalopathy, UTI MRI brain no acute findings Head CTA:No significant abnormalities identified. Neck CTA:No evidence of hemodynamically significant carotid or vertebral artery stenosis. No evidence of dissection. Evidence of congestive failure/fluid overload with small bilateral pleural effusions Mental status back to baseline Appreciate neurology input Monitor Urinary tract infection Denies any UTI symptoms Continue Rocephin Day #3 Urine culture: E.Coli Hypomagnesemia Replace electrolytes as needed Anemia of chronic disease Hemoglobin at baseline Check iron studies, if hemoglobin drops BARBARA on CKD III Baseline creatinine 1.3 Patient received IV contrast for CTA head and neck She is at risk for contrast nephropathy. Monitor renal function Avoid nephrotoxic agents as able Continue to hold home diuretics for now DM II: Hb A1c:10.1 Continue insulin therapy Pharmacy consulted for glycemic management Plan to discharge on Lantus 14 units daily Plan to add NovoLog 4 units 3 times daily Discontinue metformin upon discharge H/O CVA Continue aspirin, Lipitor H/O Diastolic CHF Chronic venous insufficiency Resume diuretics as able Hypothyroidism TSH:0.2 Free T4:1.77 Decreased Levothyroxine to 175 mcg We will need repeat thyroid function test as outpatient GERD Continue PPI Depression Continue Cymbalta DVT Px: Heparin SQ Code Status Full code Disposition: PT /OT: Recommends return home Plan to discharge once renal function improves Subjective Patient is seen and examined at bedside Reports chronic tinnitus since few weeks Office no other complaints Creatinine elevated to 1.7 Patient was hypoglycemic overnight Denies any chest pain, SOB, dizziness, nausea, abdominal pain Review of Systems Review of Systems: All systems reviewed & are unremarkable except as noted in HPI & below Physical Exam Physical Exam: Physical Exam: Vitals signs as noted above General Appearance:Moderately built and nourished, no apparent distress Head: normocephalic, Atraumatic Eyes: normal inspection, EOMI Neck: supple, Trachea midline Respiratory/Chest: Normal breath sounds, CTA Cardiovascular: S1, S2, No murmur Abdomen/GI:Soft, Non tender, Bowel sounds present Extremities/Musculoskelatal:normal inspection, 2+ B/L LE edema Neurologic/Psych:AAOX3, grossly no focal neurological deficits Skin: normal color, warm Results & Data Vital Signs (Past 12 Hours) Vital Signs Temp Pulse Resp BP Pulse Ox 12/23/18 15:34 36.4 C L 70 18 107/61 98 12/23/18 07:28 36.6 C 72 18 132/61 97 Laboratory Results [facility] 12/23/18 05:04 Sodium 136 Potassium 4.3 Chloride 98 Carbon Dioxide 31 BUN 28 H Creatinine 1.76 H Glucose 145 H Calcium 8.6
[2018-12-23] MEDS: DULOXETINE HCL 60 MG CAP PO SCH (21:00)
[2018-12-24] MEDS: LEVOTHYROXINE SODIUM 175 MCG TABLET PO SCH (06:04)
[2018-12-24] MEDS: NITROGLYCERIN 2% OINTMENT 30GM TUBE EXT SCH ×4 (06:04→23:34)
[2018-12-24] MEDS: HEPARIN SOD 5,000 UNIT/0.5 ML VIAL SQ SCH ×3 (06:04→21:11)
[2018-12-24 07:30] LABS: Hematocrit (blood only) 30.5 % (37-47); Hemoglobin 9.6 g/dL (12.0-16.0); Mean Corpuscular Hgb Conc 31.5 g/dL (32-36); Mean Corpuscular Volume 88.4 fL (80-100); Mean Platelet Volume 8.9 fL (7.4-10.4); Platelet Count 344 K/uL (130-400); RDW Coefficient of Variation 14.9 % (11.5-14.5); RDW Standard Deviation 47.7 fL (36.4-46.3); Red Blood Count 3.45 M/uL (4.2-5.4); White Blood Count 6.37 K/uL (4.8-10.8)
[2018-12-24 07:54] LABS: BUN Creatinine Ratio 17.2 (10-20); Calcium 8.7 mg/dl (8.5-10.1); Est GFR (African American) 27.8; Potassium 4.3 mmol/L (3.5-5.1)
[2018-12-24] MEDS: CARVEDILOL 25 MG TAB PO SCH ×2 (08:28→21:08)
[2018-12-24] MEDS: HydrALAZINE TAB 50 MG TAB PO SCH ×3 (08:28→21:10)
[2018-12-24] MEDS: ASCORBIC ACID 500 MG TAB PO SCH (08:29)
[2018-12-24] MEDS: ASPIRIN 81 MG ECTAB PO SCH (08:29)
[2018-12-24] MEDS: MAGNESIUM OXIDE 400 MG TAB PO SCH ×3 (08:29→21:09)
[2018-12-24] MEDS: ATORVASTATIN 40 MG TAB PO SCH (08:29)
[2018-12-24] MEDS: CHOLECALCIFEROL 1,000 UNITS TAB PO SCH (08:29)
[2018-12-24] MEDS: PANTOprazole 40 MG TAB PO SCH (08:30)
[2018-12-24] MEDS: cefTRIAXone SODIUM 1,000 MG in DEXTROSE 5% 50 ML IV SCH (08:30)
[2018-12-24] MEDS: CLOPIDOGREL BISULFATE 75 MG TAB PO SCH (08:30)
[2018-12-24] MEDS: INSULIN ASPART 100 UNITS/ML 3 ML PEN SC SCH ×4 (08:35→21:12)
[2018-12-24] MEDS: INSULIN GLARGINE SOLOSTAR 100 UNITS/ML 3 ML PEN SC SCH (08:36)
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
--- NOTE | 2018-12-24 11:48 | Ultrasound Report ---
ULTRASOUND KIDNEYS AND BLADDER CLINICAL HISTORY: Renal insufficiency. COMPARISON STUDY: Abdominal CT dated 07/16/2017. TECHNIQUE: Real-time, grayscale, and color flow sonography of the kidneys and bladder is performed. I mages are reviewed in the transverse and longitudinal planes. FINDINGS: Kidneys: The kidneys are atrophic. The right kidney measures 9.7 x 4.6 x 4.6 cm and the left kidney m easures 10.0 x 4.9 x 4.8 cm. There is no hydronephrosis. No shadowing renal calculi are identified. Left renal cysts measure up to 1.4 cm. There is no sonographic evidence of contour deforming renal ma ss lesion. No perinephric fluid is identified. Bladder: The bladder is normal in appearance. Bilateral ureteral jets were seen. IMPRESSION: 1. The kidneys are atrophic and without hydronephrosis. 2. The bladder was normal as visualized. Electronically signed by: Gerald Perera M.D. 12/24/2018 11:46 AM
[2018-12-24] MEDS: FERROUS SULFATE 325 MG TAB PO SCH (12:44)
[2018-12-24] MEDS: CALCIUM 600MG + VIT D 400 IU TAB PO SCH (12:44)
--- NOTE | 2018-12-24 16:42 | Nephrology Progress Note ---
Date of Service December 24, 2018 Assessment & Plan (1) Hypertensive urgency: Patient presented with a systolic blood pressure of 230 with severe headache. Work-up for possible CVA was negative. CTA head and neck were negative. Also negative MRI. Blood pressure is controlled now. Continue with Coreg and hydralazine.. Continue supportive management for the headache/tinnitus. She will need to see ENT after d/c (2) Hypomagnesemia: Unclear etiology but likely due to poor p.o. intake. Monitor serum magnesium daily and supplement as needed with IV mag sulfate (3) Anemia due to chronic kidney disease: Hemoglobin is close to the target range of 10-11. Will check iron levels if hemoglobin continues to drop. No need for BRANDAN at the moment. (4) BARBARA (acute kidney injury): Patient with acute kidney injury likely due to contrast-induced nephropathy. 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 Baseline creatinine for 1.3. Cr 1.9 today. Patient received IV contrast for the CTA of head and neck. Continue holding diuretics. Monitor renal function with daily BMP. And avoid further nephrotoxins. Subjective Patient seen in follow-up for acute kidney injury and hypotension during morning rounds. She feels better she was sitting up in the chair. No shortness of breath or leg swelling. No urinary symptoms. Creatinine is up trending at 1.9 today. Review of Systems Review of Systems: All systems reviewed & are unremarkable except as noted in HPI & below Physical Exam Physical Exam: General exam: Appears comfortable, no acute distress HEENT: Pupils are equal and reactive to light Neck: No JVD, neck is supple trachea is midline Respiratory system: Clear breath sounds bilaterally. Gastrointestinal: Abdomen is soft, non distended, non tender, bowel sounds are present CVS: Regular rate and rhythm. No murmurs, rubs or gallops Musculoskeletal: No joint or muscle tenderness Extremities: Non tender, no edema, peripheral pulses are present Neuro: Oriented, no tremors, no focal neurological deficits Skin: No rashes Results & Data Vital Signs (Past 12 Hours) Vital Signs Temp Pulse Resp BP Pulse Ox 12/24/18 16:00 36.4 C L 66 18 135/71 97 12/24/18 07:43 36.7 C 67 18 174/69 H 98 Laboratory Results Laboratory Results - last 24 hr 12/23/18 12/23/18 12/24/18 16:33 21:18 06:50 WBC 6.37 RBC 3.45 L Hgb 9.6 L Hct 30.5 L MCV 88.4 MCH 27.8 MCHC 31.5 L RDW Std Deviation 47.7 H RDW Coeff of Rosalba 14.9 H Plt Count 344 MPV 8.9 Sodium Potassium Chloride Carbon Dioxide Anion Gap BUN Creatinine Est Cr Clr Drug Dosing Est GFR ( Amer) Est GFR (Non-Af Amer) BUN/Creatinine Ratio Glucose POC Glucose 76 220 H Calcium 12/24/18 12/24/18 12/24/18 06:50 08:10 12:21 WBC RBC Hgb Hct MCV MCH MCHC RDW Std Deviation RDW Coeff of Rosalba Plt Count MPV Sodium 138 Potassium 4.3 Chloride 102 Carbon Dioxide 30 Anion Gap 6.0 BUN 33 H Creatinine 1.92 H Est Cr Clr Drug Dosing 19.0 Est GFR ( Amer) 27.8 Est GFR (Non-Af Amer) 24.0 BUN/Creatinine Ratio 17.2 Glucose 150 H POC Glucose 178 H 183 H Calcium 8.7 (1) Anemia due to chronic kidney disease Chronic kidney disease stage: stage 3 (moderate) Qualified Code(s): N18.3 - Chronic kidney disease, stage 3 (moderate); D63.1 - Anemia in chronic kidney disease
[2018-12-24] MEDS ORDERED: SODIUM CHLORIDE 0.9% 500 ML IV SCH (17:45)
[2018-12-24] MEDS: DULOXETINE HCL 60 MG CAP PO SCH (21:09)
[2018-12-25] MEDS: NITROGLYCERIN 2% OINTMENT 30GM TUBE EXT SCH ×2 (05:16→12:36)
[2018-12-25] MEDS: LEVOTHYROXINE SODIUM 175 MCG TABLET PO SCH (05:30)
[2018-12-25] MEDS: HEPARIN SOD 5,000 UNIT/0.5 ML VIAL SQ SCH ×2 (05:30→12:36)
[2018-12-25 07:12] LABS: Basophils # (auto) 0.03 K/uL (0-0.2); Basophils % (auto) 0.5 %; Eosinophils # (auto) 0.04 K/uL (0-0.5); Eosinophils % (auto) 0.7 %; Hematocrit (blood only) 30.1 % (37-47); Hemoglobin 9.5 g/dL (12.0-16.0); Immature Granulocytes # (auto) 0.02 K/uL (0.00-0.02); Immature Granulocytes % (auto) 0.3 %; Lymphocytes # (auto) 1.04 K/uL (1.2-3.4); Lymphocytes % (auto) 18.1 %; Mean Corpuscular Hgb Conc 31.6 g/dL (32-36); Mean Corpuscular Volume 87.8 fL (80-100); Mean Platelet Volume 9.1 fL (7.4-10.4); Monocytes # (auto) 0.48 K/uL (0.11-0.59); Monocytes % (auto) 8.4 %; Neutrophils # (auto) 4.13 K/uL (1.4-6.5); Platelet Count 324 K/uL (130-400); RDW Coefficient of Variation 15.1 % (11.5-14.5); RDW Standard Deviation 48.4 fL (36.4-46.3); Red Blood Count 3.43 M/uL (4.2-5.4); White Blood Count 5.74 K/uL (4.8-10.8)
[2018-12-25 07:46] LABS: Albumin Level 2.9 gm/dl (3.4-5.0); BUN Creatinine Ratio 22.7 (10-20); Calcium 8.4 mg/dl (8.5-10.1); Creatinine Clr Calc Pharmacy 22.4 ml/min; Est GFR (African American) 33.9; Est GFR (Non-African American) 29.2; Potassium 4.5 mmol/L (3.5-5.1)
[2018-12-25 07:48] LABS: Albumin Globulin Ratio 0.8 (0.9-2); Bilirubin,Total 0.3 mg/dl (0.2-1); Globulin 3.5 gm/dl (2.5-4.0); Total Protein 6.4 gm/dl (6.4-8.2)
[2018-12-25 07:50] VITALS: TEMP 98.2; O2SAT 98
[2018-12-25] MEDS: cefTRIAXone SODIUM 1,000 MG in DEXTROSE 5% 50 ML IV SCH (08:04)
[2018-12-25] MEDS: ASCORBIC ACID 500 MG TAB PO SCH (08:07)
[2018-12-25] MEDS: CARVEDILOL 25 MG TAB PO SCH (08:08)
[2018-12-25] MEDS: MAGNESIUM OXIDE 400 MG TAB PO SCH ×2 (08:08→12:36)
[2018-12-25] MEDS: HydrALAZINE TAB 50 MG TAB PO SCH ×2 (08:08→12:36)
[2018-12-25] MEDS: CLOPIDOGREL BISULFATE 75 MG TAB PO SCH (08:08)
[2018-12-25] MEDS: ATORVASTATIN 40 MG TAB PO SCH (08:08)
[2018-12-25] MEDS: PANTOprazole 40 MG TAB PO SCH (08:08)
[2018-12-25] MEDS: ASPIRIN 81 MG ECTAB PO SCH (08:08)
[2018-12-25] MEDS: CHOLECALCIFEROL 1,000 UNITS TAB PO SCH (08:09)
[2018-12-25] MEDS: INSULIN ASPART 100 UNITS/ML 3 ML PEN SC SCH ×2 (08:33→12:37)
--- NOTE | 2018-12-25 08:50 | Pharmacy Report ---
Pharmacy Glycemic Short Note 2 - Date of Service December 25, 2018 - Glycemic Short BSG Results (Last 24 hours): 12/24/18 12/24/18 12/24/18 12:21 17:18 20:55 Glucose POC Glucose 183 H 104 H 192 H 12/25/18 12/25/18 06:39 08:06 Glucose 159 H POC Glucose 189 H OUTPATIENT ANTIDIABETIC REGIMEN: * Lantus 14 QAM, Metformin 1gm BIDM ASSESSMENT: * Fasting BSG slightly elevated, will slightly increase Lantus * Blood sugars increasing with meals, will tighten CR but loosen CF so as to not over-correct when BSGs are above goal. * Continue higher goal range for hypoglycemia pt had on 12/21. PLAN FOR INPATIENT GLYCEMIC CONTROL: * Hold outpatient oral diabetes medications * Basal insulin - increase * Lantus 9u QAM * Bolus insulin * NovoLog per scale ACHS or Q6hrs while NPO * Goal Range: Low 120 mg/dL - High 160 mg/dL * change:Correction Factor: 40 mg/dL/unit * change:Nutritional / Prandial insulin per carb ratio of 1 unit per 10 grams CHO consumed PLAN FOR DISCHARGE: * Would continue her home Rx of lantus 14u QAM, assuming her PO intake remains consistent * Add Novolog 4u TIDM * D/C metformin: GFR has been consistently close to 30. this is a contraindication.
[2018-12-25] MEDS ORDERED: INSULIN GLARGINE SOLOSTAR 100 UNITS/ML 3 ML PEN SC SCH (09:00)
[2018-12-25] MEDS ORDERED: ALUMINUM/MAGNESIUM SUSP 30 ML UDC PO STA (10:08)
[2018-12-25] MEDS ORDERED: SODIUM CHLORIDE 0.9% 500 ML IV SCH (10:15)
--- NOTE | 2018-12-25 10:28 | Nephrology Progress Note ---
Date of Service December 25, 2018 Assessment & Plan (1) Hypertensive urgency: Patient presented with a systolic blood pressure of 230 with severe headache. Work-up for possible CVA was negative. CTA head and neck were negative. Also negative MRI. Blood pressure is above target today.. Continue with Coreg and hydralazine. Can resume torsemide 20 mg daily. Continue supportive management for the headache/tinnitus. She will need to see ENT after d/c. From renal standpoint patient can be discharged. She will need to follow- up with nephrology in 2 to 3 weeks (2) Hypomagnesemia: Unclear etiology but likely due to poor p.o. intake. Monitor serum magnesium daily and supplement as needed with IV mag sulfate (3) Anemia due to chronic kidney disease: Hemoglobin is close to the target range of 10-11. Will check iron levels if hemoglobin continues to drop. No need for BRANDAN at the moment. (4) BARBARA (acute kidney injury): Patient with acute kidney injury likely due to contrast-induced nephropathy. 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 Baseline creatinine for 1.3. Cr 1.6 today. Patient received IV contrast for the CTA of head and neck. Can resume torsemide 20 mg daily. Monitor renal function with daily BMP. And avoid further nephrotoxins. Subjective Patient seen in follow-up for acute kidney injury. She feels better this morning denies any shortness of breath or pain. No vomiting or diarrhea. No leg swelling. She is sitting up in the chair. Review of Systems Review of Systems: All systems reviewed & are unremarkable except as noted in HPI & below Physical Exam Physical Exam: General exam: Appears comfortable, no acute distress HEENT: Pupils are equal and reactive to light Neck: No JVD, neck is supple trachea is midline Respiratory system: Clear breath sounds bilaterally. Gastrointestinal: Abdomen is soft, non distended, non tender, bowel sounds are present CVS: Regular rate and rhythm. No murmurs, rubs or gallops Musculoskeletal: No joint or muscle tenderness Extremities: Non tender, no edema, peripheral pulses are present Neuro: Oriented, no tremors, no focal neurological deficits Skin: No rashes Results & Data Vital Signs (Past 12 Hours) Vital Signs Temp Pulse Resp BP Pulse Ox 12/25/18 07:49 36.8 C 70 18 172/60 H 98 12/25/18 00:25 36.9 C 69 14 146/66 H 97 Laboratory Results Laboratory Results - last 24 hr 12/24/18 12/24/18 12/24/18 12:21 17:18 20:55 WBC RBC Hgb Hct MCV MCH MCHC RDW Std Deviation RDW Coeff of Rosalba Plt Count MPV Immature Gran % (Auto) Neut % (Auto) Lymph % (Auto) [facility] % (Auto) Eos % (Auto) Baso % (Auto) Immature Gran # (Auto) Neut # (Auto) Lymph # (Auto) [facility] # (Auto) Eos # (Auto) Baso # (Auto) Sodium Potassium Chloride Carbon Dioxide Anion Gap BUN Creatinine Est Cr Clr Drug Dosing Est GFR ( Amer) Est GFR (Non-Af Amer) BUN/Creatinine Ratio Glucose POC Glucose 183 H 104 H 192 H Calcium Total Bilirubin AST ALT Alkaline Phosphatase Total Protein Albumin Globulin Albumin/Globulin Ratio 12/25/18 12/25/18 12/25/18 06:39 06:39 08:06 WBC 5.74 RBC 3.43 L Hgb 9.5 L Hct 30.1 L MCV 87.8 MCH 27.7 MCHC 31.6 L RDW Std Deviation 48.4 H RDW Coeff of Rosalba 15.1 H Plt Count 324 MPV 9.1 Immature Gran % (Auto) 0.3 Neut % (Auto) 72.0 Lymph % (Auto) 18.1 Baylor % (Auto) 8.4 Eos % (Auto) 0.7 Baso % (Auto) 0.5 Immature Gran # (Auto) 0.02 Neut # (Auto) 4.13 Lymph # (Auto) 1.04 L [facility] # (Auto) 0.48 Eos # (Auto) 0.04 Baso # (Auto) 0.03 Sodium 137 Potassium 4.5 Chloride 104 Carbon Dioxide 28 Anion Gap 5.0 BUN 37 H Creatinine 1.63 H Est Cr Clr Drug Dosing 22.4 Est GFR ( Amer) 33.9 Est GFR (Non-Af Amer) 29.2 BUN/Creatinine Ratio 22.7 H Glucose 159 H POC Glucose 189 H Calcium 8.4 L Total Bilirubin 0.3 AST 30 ALT 35 Alkaline Phosphatase 46 Total Protein 6.4 Albumin 2.9 L Globulin 3.5 Albumin/Globulin Ratio 0.8 L (1) Anemia due to chronic kidney disease Chronic kidney disease stage: stage 3 (moderate) Qualified Code(s): N18.3 - Chronic kidney disease, stage 3 (moderate); D63.1 - Anemia in chronic kidney disease
[2018-12-25] MEDS: FERROUS SULFATE 325 MG TAB PO SCH (12:36)
[2018-12-25] MEDS: CALCIUM 600MG + VIT D 400 IU TAB PO SCH (12:36)
--- NOTE | 2018-12-25 15:05 | Hospitalist Progress Note ---
Date of Service December 25, 2018 Assessment & Plan (1) Hypertensive urgency: hypertensive crisis (hypertensive emergency), Metabolic encephalopathy Likely secondary to hypertensive encephalopathy -initial symptoms of headache secondary to elevated blood pressure -BRAIN MRI: No acute intracranial abnormality. Age-related atrophy and chronic small vessel change. Mucosal thickening left mastoid air cells. -Head CTA:No significant abnormalities identified. -Neck CTA:No evidence of hemodynamically significant carotid or vertebral artery stenosis. No evidence of dissection. Evidence of congestive failure/fluid overload with small bilateral pleural effusions -headaches have resolved during the hospital stay with better blood pressures and patient returned to mental baseline -Continue hydralazine, Coreg history of Diastolic CHF Chronic venous insufficiency -low salt diet recommended -patient can resume home dose torsemide on discharge acute kidney on chronic kidney disease stage 3 -acute kidney injury likely due to IV contast for imaging studies on this admission -Baseline creatinine 1.3 -creatinine peaked at 1.92 and has trended down with IV fluids -The kidneys are atrophic and without hydronephrosis on renal ultrasound -outpatient follow up with primary care doctor for repeat renal function labs Urinary tract infection -Urine culture: E.Coli -Denies any UTI symptoms -Patient was treated for hypertension in the hospital and completed 5 days of ceftriaxone antibiotic for urinary tract infection Type 2 diabetes mellitus with diabetic chronic kidney disease HbA1c:10.1 -Pharmacy consulted for glycemic management managed the insulin needs during hospital stay and metformin was held -On discharge patient should take Lantus insulin as 10 units daily Patient should take Novolog short acting insulin three times a day with meals Patient should stop taking metformin due to renal function Hypothyroidism -Patient found to have abnormal thyroid labs during the hospital stay (TSH:0.2 and Free T4:1.77) Patient's Levothyroxine was decreased from 200 mcg daily to 175 mcg daily before breakfast Patient should take Levothyroxine 175 mcg daily before breakfast and follow with primary care doctor to repeat the thyroid labs history of cerebrovascular accident (but not on this admission) -patient has been on plavix, continue -patient was given aspirin and lipitor on this admission but since there is no evidence for recurrent stroke then this can be stopped on discharge Anemia of chronic disease -Hemoglobin at baseline GERD -Continue PPI Hypomagnesemia -resolved History of Depression -mood stable -Continue Cymbalta DVT Px: Heparin SQ while inpatient Code Status Full code Discharge Diagnosis hypertensive crisis (hypertensive emergency), Metabolic encephalopathy Likely secondary to hypertensive encephalopathy, history of cerebrovascular accident (but not on this admission), Urinary tract infection, acute kidney on chronic kidney disease stage 3, Type 2 diabetes mellitus with diabetic chronic kidney disease, Hypothyroidism Disposition: Discharge to Home PT /OT: Recommends return home Safety assessment done by Case management and that patient at home "denies any physical abuse. She states she feels safe at home. She denies any needs. Provided pt with Women's Resource pamphlet." New discharge prescriptions sent electronically to [facility] [address] [place] [address] as listed on [employer] outpatient records, patient has follow up appointments including to see primary care internal medicine clinic doctor 12/30/2018 1:00 PM Provider Suzanne Adams MD Department Internal Medicine [facility] 01/01/2019 10:00 AM Provider Mary Ann Guerra RN Department [facility] 01/01/2019 2:40 PM Provider Stefanie Edwards DO Department Sleep Disorders, [facility] Patient seen and examined at beside. creatinine downtrended to 1.6 with IV fluids. She was given more IV fluids today but she preferred to be discharged today as her renal function getting better and she feels go enough to go. She denies headache. she is alert and cooperative and pleasant. denies chest pain or abdomen pain. no back or neck pain. no dizziness or lightheadedness. no vomitting. discussed discharge plans with patient and her son Physical Exam Constitutional: WD/WN, vitals as above Eyes: PERRL, conjunctivae normal, anicteric sclerae EOM intact bilaterally ENMT: external ear and nose normal, oropharynx normal Neck: normal visual inspection Respiratory: normal respiratory effort, lungs clear to auscultation Cardiovascular: RRR, no murmur, no edema Gastrointestinal (Abdomen): normal bowel sounds, soft, nontender, no hepatosplenomegaly Musculoskeletal: Head/Neck/Chest: normocephalic and head atraumatic Neurologic: PERRL, EOMI, accommodation nl, no face palsy, no dysarthria CN's II-XI intact bilaterally Psychiatric: A+Ox3, euthymic affect Results & Data Vital Signs (Past 12 Hours) Vital Signs Temp Pulse Resp BP Pulse Ox 12/25/18 14:36 36.8 C 70 18 120/67 98 12/25/18 14:35 120/67 12/25/18 07:49 36.8 C 70 18 172/60 H 98
[2018-12-25 15:17] VITALS: BP 107/61; PULSE 69
--- NOTE | 2018-12-25 15:34 | Discharge Summary ---
Date of Service December 25, 2018 Admission HPI Per Admitting Provider 83-year-old female past medical history of hypertension, diabetes valvular heart disease, congestive heart failure, reflux disease, tract infections, Saturday, CKD 3, lymphedema was brought in by her family today. Children frequently check on her, said that she had a bad headache and was disoriented. Daughter took her blood pressure which was found to be in the 180s to 190. She called Alanis at home and relate the symptoms to the RN, she took her blood sugars was 238 and since she was not walking well and feeling well and was disoriented Alanis RN told her to go to the emergency room saw the patient in the emergency room her daughter and son and relayed the history. Admission Exam Per Admitting Provider Gen-AAO x 3, NAD, Afebrile, slow with long-term memory Head-NCAT, EOMI, PERRLA, Anicteric Sclera, No Posterior Pharyngeal Erythema Neck-Supple, No JVD, No Thyromegaly, No Masses, No LAD, No Bruits Lungs-Clear to Auscultation Bilaterally, No Rales, No Rhonchi, No Wheezing, No Crepitus Chest-No S4, +S1, +S2, No S3, No Murmurs, No Rubs, No Gallops, No Ectopy Abdomen-Soft, Bowel Sounds Present, Non Tender, Non Distended, No Hepatomegaly, No Splenomegaly, No Palpable Masses, No Rebound, No Rigidity, No Guarding Musculoskeletal-Full Range of Motion Bilaterally, No CVAT Extremities-No Cyanosis, No Clubbing, bilateral lymphedema Nuero-Cranial Nerves II-XII grossly intact, Motor WNL, DTRs WNL, upper extremities are weak bilaterally, Non Focal Psych-Normal Mood Principal Diagnosis hypertensive crisis (hypertensive emergency), Metabolic encephalopathy Likely secondary to hypertensive encephalopathy, history of cerebrovascular accident (but not on this admission), Urinary tract infection, acute kidney on chronic kidney disease stage 3, Type 2 diabetes mellitus with diabetic chronic kidney disease, Hypothyroidism Discharge Exam Constitutional WD/WN, vitals as above Eyes PERRL, conjunctivae normal, anicteric sclerae EOM intact bilaterally ENMT external ear and nose normal, oropharynx normal Neck normal visual inspection Respiratory normal respiratory effort, lungs clear to auscultation Cardiovascular RRR, no murmur, no edema Gastrointestinal (Abdomen) normal bowel sounds, soft, nontender, no hepatosplenomegaly Musculoskeletal Head/Neck/Chest: normocephalic and head atraumatic Neurologic PERRL, EOMI, accommodation nl, no face palsy, no dysarthria CN's II-XI intact bilaterally Psychiatric A+Ox3, euthymic affect Discharge Data Allergies Allergy/AdvReac Type Severity Reaction Status Date / Time No Known Allergies Allergy Unverified 12/20/18 20:18 Consultations 12/20/18 20:35 ED Decision to Admit Stat 12/20/18 22:25 Consult Nephrology Routine Consult Neurology Routine Ordered Studies 12/20/18 19:03 CT angio head w con Stat CT angio neck with con Stat CT head/brain wo con Stat 12/21/18 22:27 MR brain wo con Urgent 12/24/18 08:07 US renal/blad retro comp Routine Hospital Course (1) Hypertensive urgency: hypertensive crisis (hypertensive emergency), Metabolic encephalopathy Likely secondary to hypertensive encephalopathy -initial symptoms of headache secondary to elevated blood pressure -BRAIN MRI: No acute intracranial abnormality. Age-related atrophy and chronic small vessel change. Mucosal thickening left mastoid air cells. -Head CTA:No significant abnormalities identified. -Neck CTA:No evidence of hemodynamically significant carotid or vertebral artery stenosis. No evidence of dissection. Evidence of congestive failure/fluid ov erload with small bilateral pleural effusions -headaches have resolved during the hospital stay with better blood pressures and patient returned to mental baseline -Continue hydralazine, Coreg history of Diastolic CHF Chronic venous insufficiency -low salt diet recommended -patient can resume home dose torsemide on discharge acute kidney on chronic kidney disease stage 3 -acute kidney injury likely due to IV contast for imaging studies on this admission -Baseline creatinine 1.3 -creatinine peaked at 1.92 and has trended down with IV fluids -The kidneys are atrophic and without hydronephrosis on renal ultrasound -outpatient follow up with primary care doctor for repeat renal function labs Urinary tract infection -Urine culture: E.Coli -Denies any UTI symptoms -Patient was treated for hypertension in the hospital and completed 5 days of ceftriaxone antibiotic for urinary tract infection Type 2 diabetes mellitus with diabetic chronic kidney disease HbA1c:10.1 -Pharmacy consulted for glycemic management managed the insulin needs during hospital stay and metformin was held -On discharge patient should take Lantus insulin as 10 units daily Patient should take Novolog short acting insulin three times a day with meals Patient should stop taking metformin due to renal function Hypothyroidism -Patient found to have abnormal thyroid labs during the hospital stay (TSH:0.2 and Free T4:1.77) Patient's Levothyroxine was decreased from 200 mcg daily to 175 mcg daily before breakfast Patient should take Levothyroxine 175 mcg daily before breakfast and follow with primary care doctor to repeat the thyroid labs history of cerebrovascular accident (but not on this admission) -patient has been on plavix, continue -patient was given aspirin and lipitor on this admission but since there is no evidence for recurrent stroke then this can be stopped on discharge Anemia of chronic disease -Hemoglobin at baseline GERD -Continue PPI Hypomagnesemia -resolved History of Depression -mood stable -Continue Cymbalta DVT Px: Heparin SQ while inpatient Code Status Full code Discharge Diagnosis hypertensive crisis (hypertensive emergency), Metabolic encephalopathy Likely secondary to hypertensive encephalopathy, history of cerebrovascular accident (but not on this admission), Urinary tract infection, acute kidney on chronic kidney disease stage 3, Type 2 diabetes mellitus with diabetic chronic kidney disease, Hypothyroidism Disposition: Discharge to Home PT /OT: Recommends return home Safety assessment done by Case management and that patient at home "denies any physical abuse. She states she feels safe at home. She denies any needs. Provided pt with Women's Resource pamphlet." New discharge prescriptions sent electronically to [facility] [address] [place] [address] as listed on [employer] outpatient records, patient has follow up appointments including to see primary care internal medicine clinic doctor 12/30/2018 1:00 PM Provider Suzanne Adams MD Department Internal Medicine [facility] 01/01/2019 10:00 AM Provider Mary Ann Guerra RN Department [facility] 01/01/2019 2:40 PM Provider Stefanie Edwards DO Department Sleep Disorders, [facility] Total Time Total Time Spent Total Time Spent (In Minutes): 40 minutes Total Time Includes: Examination of the Patient, Discharge Planning, Medication Reconciliation and Communication With Other Providers Discharge Plan Discharge Items Patient Disposition: Home - Self-Care Reason For Visit: ROSA, HTN URGENCY, SUSPECTED CVA Discharge Diagnosis: hypertensive crisis (hypertensive emergency), Metabolic encephalopathy Likely secondary to hypertensive encephalopathy, history of cerebrovascular accident (but not on this admission), Urinary tract infection, acute kidney on chronic kidney disease stage 3, Type 2 diabetes mellitus with diabetic chronic kidney disease, Hypothyroidism Condition: Good Discharge Goals: Improve disease control Activity: Per 'Additional Instructions' section Non-emergency contact: Primary Care Provider Call non-emergency contact if: you have any medication questions Follow-up/Referrals: Suzanne Adams MD [Primary Care Provider] - Diet: Carb Consistent or DM2 and Low Sodium (2gm) Addtl Provider Instructions: Patient was treated for hypertension in the hospital and completed 5 days of ceftriaxone antibiotic for urinary tract infection and was treated for acute kidney injury and other issues of diabetes and hypothyroidism On discharge patient should take Lantus insulin as 10 units daily Patient should take Novolog short acting insulin three times a day with meals Patient should stop taking metformin due to renal function Patient should follow up with primary care doctor to check renal function labs and blood pressure Patient also found to have abnormal thyroid labs during the hospital stay (TSH:0.2 and Free T4:1.77) Patient's Levothyroxine was decreased from 200 mcg daily to 175 mcg daily before breakfast Patient should take Levothyroxine 175 mcg daily before breakfast and follow with primary care doctor to repeat the thyroid labs New discharge prescriptions sent electronically to [facility] [address] [place] [address] as listed on [facility] outpatient records, patient has follow up appointments including to see primary care internal medicine clinic doctor 12/30/2018 1:00 PM Provider Suzanne Adams MD Department Internal Medicine [facility] 01/01/2019 10:00 AM Provider Mary Ann Guerra RN Department [facility] 01/01/2019 2:40 PM Provider Stefanie Edwards DO Department Sleep Disorders, [facility] Prescriptions: New levothyroxine [Synthroid] 175 mcg Tablet 175 mcg PO DAILYBB 30 Days Qty: 30 RF: 0 Lantus Solostar U-100 Insulin 100 unit/mL (3 mL) Insulin Pen 10 unit SC QAM 30 Days Qty: 3 RF: 0 Novolog Flexpen U-100 Insulin 100 unit/mL (3 mL) Insulin Pen 4 unit SC TID 30 Days Qty: 6 RF: 0 Continued carvedilol 25 mg Tablet 25 mg PO BID RF: 0 clopidogrel [Plavix] 75 mg Tablet 75 mg PO QAM RF: 0 tramadol 50 mg Tablet 50 mg PO HS PRN (Reason: leg pain) RF: 0 calcium carbonate [Calcium 600] 600 mg calcium (1,500 mg) Tablet 600 mg PO QDL RF: 0 vitamin A 10,000 unit Capsule 10,000 unit PO QAM RF: 0 ferrous sulfate 325 mg (65 mg iron) Tablet 325 mg PO QDL RF: 0 ascorbic acid (vitamin C) [Vitamin C] 500 mg Capsule, Extended Release 500 mg PO QAM RF: 0 cholecalciferol (vitamin D3) [Vitamin D3] 2,000 unit Capsule 2,000 unit PO QAM RF: 0 magnesium oxide 400 mg Capsule 400 mg PO TID RF: 0 torsemide 20 mg tablet 40 mg PO QAM RF: 0 omeprazole 20 mg capsule,delayed release(DR/EC) 20 mg PO QAM RF: 0 hydralazine 50 mg tablet 50 mg PO TID RF: 0 acetaminophen [Tylenol Extra Strength] 500 mg Tablet 500 mg PO Q6H PRN (Reason: Headache) RF: 0 duloxetine [Cymbalta] 60 mg Capsule,Delayed Release(Dr/Ec) 60 mg PO DAILY RF: 0 Discontinued metformin 1,000 mg Tablet 1,000 mg PO BID RF: 0 levothyroxine 200 mcg Tablet 200 mcg PO QAM RF: 0 Lantus Solostar U-100 Insulin 100 unit/mL (3 mL) Insulin Pen 14 unit SUBCUT QAM RF: 0 Stand-Alone Forms: [facility] Discharge Orders: Discharge Order (Routine); Ordered 12/25/18 Ordered By: Yang Corbin Admission Data Admit Date/Time: 12/20/18 21:13 Attending Provider: Yang Corbin Admit Provider: Yang Neves Primary Care Provider: Suzanne Adams Other Providers: Yang Neves ; Elio Perez ; Fletcher Hudson Service: Medical Other Interventions: Discharge Summary Assessment (RN) Last Done: 12/25/18 14:36
== END 2018-12-25 16:12 | disposition home or self-care (01) | DRG 77 ==
LOC: ED 18:52 → 2S 21:13 → SUATTDRO 21:13 → 2S 21:49 → 4W 12-22 16:34

== ENCOUNTER 2020-01-10 17:29 | Inpatient (IN) ==
--- NOTE | 2020-01-10 17:37 | Emergency Department Note ---
Impression & Plan Sepsis, Dehydration, Cystitis, Elevated lactic acid level ED Provider Note NAME: REGINE ALMENDAREZ AGE: 84 SEX: F : 1935 ARRIVES VIA: Ambulance INFORMANT: Patient, ED PROVIDER(S): Blayne Wray MD Chief Complaint: Weakness, fever, referral HPI: Patient is present with concern for weakness. The patient has had some weakness associated decreased p.o. intake and decreased appetite over the last 3 to 4 days. Patient has not had any recent travel. The patient denies any cough. The patient does have some chronic wounds over the bilateral lower extremities which she had dressed by [employer] on Saturday. The patient was seen in acute care and referred here due to concern for fever. Patient states t hat her has not been sick. Patient denies feeling warm or having chills. The patient denies cough, shortness of breath, or chest pain. Patient denies nausea, or vomiting. Patient denies any dysuria or hematuria. The patient denies any abdominal pain, nausea, vomiting. ROS: See HPI for pertinent positives and negatives. A total of 10 systems were reviewed and otherwise negative. Past medical history: See below Surgical history: See below Social history: See below Physical Exam: GENERAL: Thin in appearance, wearing glasses and a mask. NAD, non-toxic. EYE EXAM: Normal conjunctiva. PERRL, no anisocoria and EOM's grossly intact w/o pain. NECK: Supple, no nuchal rigidity, no adenopathy, non-tender. No signs of meningismus. LUNGS: Clear to auscultation. Normal chest wall mechanics. HEART: NSR, no MRG. ABDOMEN: Abdomen soft, non-tender, normo-active bowel sounds, no masses, no rebound or guarding. BACK: No CVA TTP. SKIN: No rashes and no bruising. UPPER EXTREMITIES: Upper extremities are grossly normal. LOWER EXTREMITIES: Grossly normal, no edema. Chronic wounds to the bilateral plantar aspect bilateral second toes do not appear to be infected no purulent drainage. Dressing was taken down over the proximal right ryder without cellulitic change, mild redness to the left distal ryder without swelling or drainage. Compartments are soft. NEURO EXAM: A&O x3, cranial nerves II-XII grossly intact, normal speech, moves all 4 extremities on command w/o issue. Differential diagnoses: Viral syndrome, otitis, pharyngitis, pneumonia, influenza, meningitis, urinary tract infection, sepsis, bacteremia, as well as other pathologies. Course: Patient was seen and evaluated the bedside. Full history physical exam was performed. EKG: Indication: Weakness Normal sinus rhythm, rate of 94, normal GA and QRS, prolonged QTC, normal axis, no obvious ST changes or T WI. Imaging Studies: Radiology results as stated below per my review in the radiologist's interpretation: XR chest 1V portable HISTORY: SEPSIS COMPARISON: Chest 12/20/2018. FINDINGS: The lungs are hyperexpanded with apical predominant emphysematous changes. No pneumothorax. Trace right pleural effusion and right basilar densities have improved. The heart is normal in size. No new focal lung consolidations to suggest pneumonia. No evidence for pulmonary edema. Cardiac valve prosthesis is again noted. IMPRESSION: 1. Emphysema. 2. Interval improvement in the trace right pleural effusion and right basilar density. ACT 112: Negative or not required by law. Electronically signed by: Bobby Melo M.D. 01/10/2020 7:33 PM Dictated: 01/10/201913 Transcribed: 01/10/201913 Cardiac monitoring: An order was placed for continuous cardiac monitoring. The monitor shows a rate of 95 with sinus rhythm. MDM: Weakness and fever. Blood gas obtained along with blood cultures and urine. Patient was given IV fluids and Tylenol. Patient does have a white count of 20 with a mildly elevated lactate of 3. Urinalysis is grossly positive for infection. The patient has no CVA tenderness to palpation or abdominal pains. Do not believe that she requires a CT of the abdomen pelvis at this time given her lack of other findings on exam. The patient also states that she does feel improved after her initial IV fluids. Kidney function n likely prerenal azotemia for dehydration. Patient was ordered a second liter. Patient is hemodynamically stable. I did speak the on-call hospitalist and the patient was admitted to [facility] service under Dr. Vaca. 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) CAD (coronary artery disease) (Chronic) Cardiac cath 2011 demonstrated nonobstructive disease Chronic diastolic CHF (congestive heart failure) (Chronic) Chronic kidney disease (CKD), stage III (moderate) (Chronic) CVA (cerebral vascular accident) (Chronic) Depression (Chronic) Diabetes mellitus, type II (Chronic) Diabetic polyneuropathy (Chronic) Dyslipidemia (Chronic) GERD (gastroesophageal reflux disease) (Chronic) History of pleural effusion (Chronic) With multiple thoracentesis Hypertension (Chronic) Hypothyroidism (Chronic) Iron deficiency anemia (Chronic) Osteoporosis (Chronic) Venous insufficiency of both lower extremities (Chronic) Surgical History S/P patent foramen ovale closure (Chronic) Status post cataract extraction (Chronic) Status post cholecystectomy (Chronic) Status post hysterectomy (Chronic) Status post mitral valve repair (Chronic) Family History Other Family history non-contributory Social History Smoking Status: Never smoker Second Hand Exposure: No; Hx Alcohol Use: Yes Alcohol type: wine Hx Substance Use: No Preferred Language: Hungarian Communication Ability: Effective Desulphuring Operator Required: No Beliefs That Will Affect Care: None marital status: Current Living Situation: Spouse current occupational status: retired How many Children do You have: 3 Feels Safe at Home: Yes Allergies Allergies Allergy/AdvReac Type Severity Reaction Status Date / Time No Known Allergies Allergy Verified 01/10/20 18:46 Home Meds Home Medications Medication Instructions Recorded Confirmed calcium carbonate [Calcium 600] 600 mg PO QDL 08/22/18 01/10/20 carvedilol 12.5 mg PO AMHS 08/22/18 01/10/20 clopidogrel [Plavix] 75 mg PO QAM 08/22/18 01/10/20 magnesium oxide 400 mg PO TID 08/22/18 01/10/20 tramadol 50 mg PO HS PRN 08/22/18 01/10/20 vitamin A 10,000 unit PO QAM 08/22/18 01/10/20 acetaminophen [Tylenol Extra 500 - 1,000 mg PO Q6H PRN 12/20/18 01/10/20 Strength] hydralazine 50 mg PO TID 12/20/18 01/10/20 torsemide See Rx Instructions .ROUTE .COMPLEX 12/20/18 01/10/20 aripiprazole [Abilify] 1 mg PO QAM 01/10/20 01/10/20 bupropion HCl [Wellbutrin SR] 100 mg PO BID 01/10/20 01/10/20 cholecalciferol (vitamin D3) 125 mcg PO QAM 01/10/20 01/10/20 [Vitamin D3] diphenhydramine HCl [Benadryl] 25 mg PO HS 01/10/20 01/10/20 docusate sodium 100 mg PO AMHS 01/10/20 01/10/20 escitalopram oxalate [Lexapro] 10 mg PO HS 01/10/20 01/10/20 insulin glargine [Lantus U-100 15 unit SUBCUT QAM 01/10/20 01/10/20 Insulin] iron,carbonyl-vitamin C [Vitron-C] 1 tab PO QDL 01/10/20 01/10/20 levothyroxine 175 mcg PO DAILYBB 01/10/20 01/10/20 pantoprazole 40 mg PO QAM 01/10/20 01/10/20 polyethylene glycol 3350 [Miralax] 17 g PO DAILY PRN 01/10/20 01/10/20 zinc sulfate [Zinc-220] 220 mg PO QDL 01/10/20 01/10/20 Results & Data (ED) Vital Signs Vital Signs - 24 hr 01/10/20 17:30 01/10/20 18:33 01/10/20 18:46 Temperature 38.4 C H Temperature Source Oral Pulse Rate 95 H 94 H Pulse Rhythm Regular Pulse Strength Normal Respiratory Rate 20 19 Respiratory Effort / Characteristics Non-Labored Non-Labored Spontaneous Respiratory Depth Normal Respiratory Pattern Regular Blood Pressure 151/70 H 161/69 H Blood Pressure Mean 97 114 Blood Pressure Position Lying Pulse Oximetry 99 94 Oxygen Delivery Method Room Air Sepsis Recent Fever Within 48 Hours Yes Sepsis New/Unexplained Change in Mental Status No Sepsis Action Taken by Nursing No Action Required Home Medications Current Medication List: was personally reviewed by me Laboratory Data Attestation: I reviewed the patient's lab results. Result diagrams: 01/10/20 18:15 01/10/20 18:15 Lab Results 01/10/20 01/10/20 01/10/20 Range/Units 18:15 18:15 18:15 WBC 20.34 H (4.8-10.8) K/uL RBC 3.42 L (4.2-5.4) M/uL Hgb 10.4 L (12.0-16.0) g/dL Hct 32.0 L (37-47) % MCV 93.6 (80-100) fL MCH 30.4 (25-34) pg MCHC 32.5 (32-36) g/dL RDW Std Deviation 46.5 H (36.4-46.3) fL RDW Coeff of Rosalba 13.6 (11.5-14.5) % Plt Count 277 (130-400) K/uL MPV 8.7 (7.4-10.4) fL Immature Gran % (Auto) 0.4 % Neut % (Auto) 91.6 % Lymph % (Auto) 2.9 % Riley % (Auto) 5.0 % Eos % (Auto) 0.0 % Baso % (Auto) 0.1 % Neut # (Auto) 18.61 H (1.4-6.5) K/uL Lymph # (Auto) 0.60 L (1.2-3.4) K/uL Riley # (Auto) 1.01 H (0.11-0.59) K/uL Eos # (Auto) 0.01 (0-0.5) K/uL Baso # (Auto) 0.02 (0-0.2) K/uL Immature Gran # (Auto) 0.09 H (0.00-0.02) K/uL PT 11.7 (9.0-12.0) Seconds INR 1.1 (0.9-1.1) APTT 27.9 (21.0-31.0) Seconds PTT Ratio 1.0 Sodium 133 L (136-145) mmol/L Potassium 3.8 (3.5-5.1) mmol/L Chloride 97 L (98-107) mmol/L Carbon Dioxide 29 (21-32) mmol/L Anion Gap 8.0 (3-11) BUN 50 H (7-18) mg/dl Creatinine 1.96 H (0.6-1.2) mg/dl Est Cr Clr Drug Dosing 20.6 ml/min Est GFR ( Amer) 26.9 Est GFR (Non-Af Amer) 23.2 BUN/Creatinine Ratio 25.6 H (10-20) Glucose 276 H (70-99) mg/dl Lactate (0.4-2.0) mmol/L Calcium 9.2 (8.5-10.1) mg/dl Magnesium 2.1 (1.8-2.4) mg/dl Total Bilirubin 0.3 (0.2-1) mg/dl AST 21 (15-37) U/L ALT 31 (12-78) U/L Alkaline Phosphatase 78 (45-117) U/L Troponin I < 0.015 (0-0.045) ng/ml Total Protein 7.5 (6.4-8.2) gm/dl Albumin 3.5 (3.4-5.0) gm/dl Globulin 4.0 (2.5-4.0) gm/dl Albumin/Globulin Ratio 0.9 (0.9-2) Procalcitonin (0-0.5) ng/ml Urine Color Urine Appearance (Clear) Urine pH (4.5-7.5) Ur Specific [place] (1.000-1.030) Urine Protein (Negative) Urine Glucose (UA) (Negative) Urine Ketones (Negative) Urine Blood (Negative) Urine Nitrite (Negative) Urine Bilirubin (Negative) Urine Urobilinogen (Negative) Ur Leukocyte Esterase (Negative) Urine WBC (Auto) (0-5) /hpf Urine RBC (Auto) (0-4) /hpf U Hyaline Cast (Auto) (0-5) /lpf U Epithel Cells (Auto) (0-5) /lpf Urine Bacteria (Auto) (Negative) 01/10/20 01/10/20 01/10/20 Range/Units 18:15 18:15 18:35 WBC (4.8-10.8) K/uL RBC (4.2-5.4) M/uL Hgb (12.0-16.0) g/dL Hct (37-47) % MCV (80-100) fL MCH (25-34) pg MCHC (32-36) g/dL RDW Std Deviation (36.4-46.3) fL RDW Coeff of Rosalba (11.5-14.5) % Plt Count (130-400) K/uL MPV (7.4-10.4) fL Immature Gran % (Auto) % Neut % (Auto) % Lymph % (Auto) % Riley % (Auto) % Eos % (Auto) % Baso % (Auto) % Neut # (Auto) (1.4-6.5) K/uL Lymph # (Auto) (1.2-3.4) K/uL Riley # (Auto) (0.11-0.59) K/uL Eos # (Auto) (0-0.5) K/uL Baso # (Auto) (0-0.2) K/uL Immature Gran # (Auto) (0.00-0.02) K/uL PT (9.0-12.0) Seconds INR (0.9-1.1) APTT (21.0-31.0) Seconds PTT Ratio Sodium (136-145) mmol/L Potassium (3.5-5.1) mmol/L Chloride (98-107) mmol/L Carbon Dioxide (21-32) mmol/L Anion Gap (3-11) BUN (7-18) mg/dl Creatinine (0.6-1.2) mg/dl Est Cr Clr Drug Dosing ml/min Est GFR ( Amer) Est GFR (Non-Af Amer) BUN/Creatinine Ratio (10-20) Glucose (70-99) mg/dl Lactate 3.4 H* (0.4-2.0) mmol/L Calcium (8.5-10.1) mg/dl Magnesium (1.8-2.4) mg/dl Total Bilirubin (0.2-1) mg/dl AST (15-37) U/L ALT (12-78) U/L Alkaline Phosphatase (45-117) U/L Troponin I (0-0.045) ng/ml Total Protein (6.4-8.2) gm/dl Albumin (3.4-5.0) gm/dl Globulin (2.5-4.0) gm/dl Albumin/Globulin Ratio (0.9-2) Procalcitonin 0.21 (0-0.5) ng/ml Urine Color Yellow Urine Appearance Cloudy A (Clear) Urine pH 5.0 (4.5-7.5) Ur Specific [place] 1.013 (1.000-1.030) Urine Protein Negative (Negative) Urine Glucose (UA) Negative (Negative) Urine Ketones Negative (Negative) Urine Blood Negative (Negative) Urine Nitrite Positive A (Negative) Urine Bilirubin Negative (Negative) Urine Urobilinogen Negative (Negative) Ur Leukocyte Esterase 3+ H (Negative) Urine WBC (Auto) >30 H (0-5) /hpf Urine RBC (Auto) 0-4 (0-4) /hpf U Hyaline Cast (Auto) 1-5 (0-5) /lpf U Epithel Cells (Auto) 0-5 (0-5) /lpf Urine Bacteria (Auto) 4+ H (Negative) Administered Medications Discontinued Medications Acetaminophen (Tylenol) 650 mg PO NOW STA Stop: 01/10/20 17:47 Last Admin: 01/10/20 19:04 Dose: 650 mg Documented by: [id number] Sodium Chloride (Nss 1000ml) 1,000 mls @ 999 mls/hr IV .Q1H1M LUZMARIA Stop: 01/10/20 18:46 Last Admin: 01/10/20 19:04 Dose: 999 mls/hr Documented by: [id number] Discharge Plan Visit Data Chief Complaint: Weakness Stated Complaint: WEAKNESS ED Provider: Blayne Wray Discharge Problem: Sepsis, Dehydration, Cystitis, Elevated lactic acid level Forms Stand Alone Forms: [facility] Prescriptions Prescriptions: No Action carvedilol 25 mg Tablet 12.5 mg PO AMHS RF: 0 clopidogrel [Plavix] 75 mg Tablet 75 mg PO QAM RF: 0 tramadol 50 mg Tablet 50 mg PO HS PRN (Reason: leg pain) RF: 0 calcium carbonate [Calcium 600] 600 mg calcium (1,500 mg) Tablet 600 mg PO QDL RF: 0 vitamin A 10,000 unit Capsule 10,000 unit PO QAM RF: 0 magnesium oxide 400 mg Capsule 400 mg PO TID RF: 0 torsemide 20 mg tablet See Rx Instructions .ROUTE .COMPLEX RF: 0 hydralazine 50 mg tablet 50 mg PO TID RF: 0 acetaminophen [Tylenol Extra Strength] 500 mg Tablet 500 - 1,000 mg PO Q6H PRN (Reason: Pain) RF: 0 levothyroxine 175 mcg Tablet 175 mcg PO DAILYBB RF: 0 Lantus U-100 Insulin 100 unit/mL Solution 15 unit SUBCUT QAM RF: 0 bupropion HCl [Wellbutrin SR] 100 mg Tablet Sustained-Release 12 Hr 100 mg PO BID RF: 0 pantoprazole 40 mg Tablet,Delayed Release (Dr/Ec) 40 mg PO QAM RF: 0 diphenhydramine HCl [Benadryl] 25 mg Capsule 25 mg PO HS RF: 0 docusate sodium 100 mg Capsule 100 mg PO AMHS RF: 0 polyethylene glycol 3350 [Miralax] 17 gram/dose Powder 17 g PO DAILY PRN (Reason: Constipation) RF: 0 escitalopram oxalate [Lexapro] 10 mg Tablet 10 mg PO HS RF: 0 aripiprazole [Abilify] 2 mg Tablet 1 mg PO QAM RF: 0 zinc sulfate [Zinc-220] 220 (50) mg Capsule 220 mg PO QDL RF: 0 cholecalciferol (vitamin D3) [Vitamin D3] 125 mcg (5,000 unit) Tablet 125 mcg PO QAM RF: 0 Vitron-C 65 mg iron- 125 mg Tablet,Delayed Release (Dr/Ec) 1 tab PO QDL RF: 0 Discharge Problem: Sepsis Qualifiers: Sepsis type: sepsis due to unspecified organism Sepsis acute organ dysfunction status: without acute organ dysfunction Qualified Code(s): A41.9 - Sepsis, unspecified organism
[2020-01-10] MEDS ORDERED: ACETAMINOPHEN 325 MG TAB PO STA (17:46)
[2020-01-10] MEDS ORDERED: SODIUM CHLORIDE 0.9% 1000ML 1,000 ML IV SCH (18:00)
[2020-01-10 18:27] LABS: Basophils # (auto) 0.02 K/uL (0-0.2); Basophils % (auto) 0.1 %; Eosinophils # (auto) 0.01 K/uL (0-0.5); Hemoglobin 10.4 g/dL (12.0-16.0); Immature Granulocytes # (auto) 0.09 K/uL (0.00-0.02); Immature Granulocytes % (auto) 0.4 %; Lymphocytes % (auto) 2.9 %; Mean Corpuscular Hemoglobin 30.4 pg (25-34); Mean Corpuscular Hgb Conc 32.5 g/dL (32-36); Mean Corpuscular Volume 93.6 fL (80-100); Mean Platelet Volume 8.7 fL (7.4-10.4); Monocytes # (auto) 1.01 K/uL (0.11-0.59); Neutrophils # (auto) 18.61 K/uL (1.4-6.5); Neutrophils % (auto) 91.6 %; Platelet Count 277 K/uL (130-400); RDW Coefficient of Variation 13.6 % (11.5-14.5); RDW Standard Deviation 46.5 fL (36.4-46.3); Red Blood Count 3.42 M/uL (4.2-5.4); White Blood Count 20.34 K/uL (4.8-10.8)
[2020-01-10 18:40] LABS: INR 1.1 (0.9-1.1); Partial Thromboplastin Time 27.9 Seconds (21.0-31.0); Prothrombin Time 11.7 Seconds (9.0-12.0)
[2020-01-10 18:44] LABS: Alanine Aminotransferase 31 U/L (12-78); Albumin Level 3.5 gm/dl (3.4-5.0); Aspartate Aminotransferase 21 U/L (15-37); BUN Creatinine Ratio 25.6 (10-20); Blood Urea Nitrogen 50 mg/dl (7-18); Calcium 9.2 mg/dl (8.5-10.1); Carbon Dioxide 29 mmol/L (21-32); Chloride 97 mmol/L (98-107); Creatinine Clr Calc Pharmacy 20.6 ml/min; Est GFR (African American) 26.9; Est GFR (Non-African American) 23.2; Glucose 276 mg/dl (70-99); Magnesium 2.1 mg/dl (1.8-2.4); Potassium 3.8 mmol/L (3.5-5.1); Sodium 133 mmol/L (136-145)
[2020-01-10 18:48] LABS: Albumin Globulin Ratio 0.9 (0.9-2); Alkaline Phosphatase 78 U/L (45-117); Bilirubin,Total 0.3 mg/dl (0.2-1); Total Protein 7.5 gm/dl (6.4-8.2); Troponin I < 0.015 ng/ml (0-0.045)
[2020-01-10 18:59] LABS: Appearance Urine Cloudy (Clear); Bacteria Urine Automated 4+ (Negative); Bilirubin Urine Negative (Negative); Blood Urine Negative (Negative); Color Urine Yellow; Epithelial Cell Urine Auto 0-5 /lpf (0-5); Glucose Urine UA Negative (Negative); Ketones Urine Negative (Negative); Leukocyte Esterase Urine 3+ (Negative); Nitrite Urine Positive (Negative); Protein Urine Negative (Negative); RBC Urine Automated 0-4 /hpf (0-4); Specific Gravity Urine 1.013 (1.000-1.030); Urobilinogen Urine Negative (Negative); WBC Urine Automated >30 /hpf (0-5)
[2020-01-10] MEDS ORDERED: SODIUM CHLORIDE 0.9% 1000ML 1,000 ML IV ONE (19:19)
[2020-01-10] MEDS ORDERED: cefTRIAXone SODIUM 1,000 MG/50 ML BAG IV STA (19:19)
--- NOTE | 2020-01-10 19:35 | XRay Report ---
XR chest 1V portable HISTORY: SEPSIS COMPARISON: Chest 12/20/2018. FINDINGS: The lungs are hyperexpanded with apical predominant emphysematous changes. No pneumothorax. Trace right pleural effusion and right basilar densities have improved. The heart is normal in size. No new focal lung consolidations to suggest pneumonia. No evidence for pulmonary edema. Cardiac valv e prosthesis is again noted. IMPRESSION: 1. Emphysema. 2. Interval improvement in the trace right pleural effusion and right basilar density. ACT 112: Negative or not required by law. Electronically signed by: Bobby Melo M.D. 01/10/2020 7:33 PM
[2020-01-10] MEDS ORDERED: TRAMADOL HCL 50 MG TABLET PO PRN (21:20)
[2020-01-10] MEDS ORDERED: PIPERACILL/TAZOBAC CONSULT ACTIVE PRN (21:20)
[2020-01-10] MEDS ORDERED: NITROGLYCERIN SL 0.4 MG/TAB TAB SL PRN (21:20)
[2020-01-10] MEDS ORDERED: POLYETHYLENE (MIRALAX) 17 GM PACK PO PRN (21:20)
[2020-01-10] MEDS ORDERED: ONDANSETRON INJ 2 MG/ML 2 ML VIAL IV PRN (21:20)
[2020-01-10] MEDS: SODIUM CHLORIDE 0.9% 1000ML 1,000 ML IV SCH (21:26)
[2020-01-10] MEDS ORDERED: PIPERACILLIN/TAZOBACTAM 3.375 GM in DEXTROSE 5% 100 ML IV STA (21:45)
[2020-01-10] MEDS: ALBUTEROL HFA 8 GM INHALER INH SCH (21:50)
[2020-01-10] MEDS: DOCUSATE SODIUM 100 MG CAP PO SCH (21:56)
[2020-01-10] MEDS: MAGNESIUM OXIDE 400 MG TAB PO SCH (21:56)
[2020-01-10] MEDS: carvediloL 12.5 MG TAB PO SCH (21:56)
[2020-01-10] MEDS: INSULIN ASPART 100 UNITS/ML 3 ML PEN SC SCH (21:57)
[2020-01-10] MEDS: BuPROPion SR 100 MG TABCR PO SCH (21:58)
[2020-01-10] MEDS: HEPARIN SOD 5,000 UNIT/0.5 ML VIAL SQ SCH (21:58)
--- NOTE | 2020-01-10 22:49 | History and Physical Report ---
DATE OF ADMISSION: 01/10/2020 CHIEF COMPLAINT: Weakness. HISTORY OF PRESENT ILLNESS: This is an 84-year-old female with past medical history significant for type 2 diabetes, hypothyroidism, hyperlipidemia, history of pancreatic hypertrophy, chronic kidney disease stage III, history of pleural effusions, history of sleep apnea, nocturnal hypoxemia, chronic diastolic congestive heart failure, pulmonary hypertension, venous insufficiency, bilateral atrial enlargement, hypertension, GERD, zinc deficiency, osteoarthritis of multiple joints, senile osteoporosis, hiatal hernia, diabetic polyneuropathy, anemia of chronic kidney disease, iron deficiency anemia, CAD, depression with anxiety, status post mitral valve repair, history of CVA, who lives with her , ambulates with a walker, presents with weakness. The patient says she lost her sense of smell and taste about 1-1/2 years ago and since then her appetite is down and she generally drinks Boost and her weight has been down since then as per the son, but last few days she is getting more weaker, appetite is more down, and not feeling well, but denies any fever, chills. No cough, no nausea, no headache, no runny nose, no sore throat, no abdominal pain. Normal bowel movements. No blood in the stools. She has somewhat more increased frequency of the urine, but no hematuria, no burning micturition. She has some chronic swelling in the legs. In the ER, she was having temp spike and she was tachycardic and elevated white count and lactic acid was 3.4. UA was positive. She has history of UTIs in the past. Blood pressure is okay. Saturating fine on room air. ALLERGIES: HARLEY INHIBITORS, ANGIOTENSIN RECEPTOR BLOCKERS. PAST MEDICAL HISTORY: As mentioned above. PAST SURGICAL HISTORY: Stone removal from the bile duct, left heart catheterization, nonobstructing single vessel disease, colonoscopy, EGDs, dental surgery, bilateral removal of the ovary and oviducts, bilateral cataract surgery, cholecystectomy, repair of radius and ulna fracture, replacement of mitral valve, total hysterectomy. MEDICATIONS: The patient is on Coreg 12.5 mg p.o. b.i.d., Lantus 15 units subQ daily, torsemide 60 mg every other day, Abilify 1 mg daily, Wellbutrin SR 100 mg p.o. b.i.d., MiraLax 17 grams p.o. daily p.r.n., Protonix 40 mg p.o. daily, Plavix 75 mg p.o. daily, semaglutide 1 mg subcutaneous once a week, magnesium oxide 400 mg p.o. t.i.d., zinc sulfate 220 mg p.o. daily, vitamin D 125 mcg p.o. daily, levothyroxine 175 mcg p.o. daily, Colace 100 mg p.o. daily p.r.n., Vitron-C 1 tablet daily, albuterol 2 puffs q.i.d., tramadol 50 mg p.o. at bedtime p.r.n., Tylenol 500 mg p.o. q. 4 hours p.r.n., vitamin D plus calcium 1 tablet daily. FAMILY HISTORY: Significant for son has cancer and heart disorder. SOCIAL HISTORY: , lives with her . No smoking. No alcohol use, no drug use. REVIEW OF SYSTEMS: As per HPI. Rest of the review of systems negative. PHYSICAL EXAMINATION: GENERAL: The patient is old and frail, not in acute distress. VITAL SIGNS: Temperature T-max 38.4, pulse 94, respiratory rate 19, blood pressure 161/69, oxygen 94% on room air. HEENT: No pallor, no icterus. Pupils equal, round, and reactive to light. Extraocular muscles intact. NECK: No JVD, no neck masses. CARDIOVASCULAR: S1, S2 heard. Tachycardia. No murmur, no gallop. RESPIRATORY SYSTEM: Normal AP diameter. No accessory muscle use. No wheezing, no crackles. ABDOMEN: Soft, bowel sounds present, nontender. No distention. CENTRAL NERVOUS SYSTEM: Alert and oriented. Speech clear. No facial droop. Extraocular muscles intact. Obeys commands. Moves extremities. EXTREMITIES: Chronic skin changes, chronic mild edema seen, no erythema. LABORATORY DATA: WBC 20.3, hemoglobin 10.4, hematocrit 32, platelets 277. PT 11.7, INR 1.1, APTT 27.9. Sodium 133, potassium 3.8, chloride 97, bicarbonate 29, BUN 50, creatinine 1.9, serum glucose 276. Lactate 3.4, calcium 9.2, magnesium 2.1, total bilirubin 0.3, AST 21, ALT 31, alkaline phosphatase 78. Troponin I less than 0.015. Urinalysis positive for nitrite and leukocyte esterase and +4 bacteria. IMAGING DATA: Chest x-ray, emphysema, interval improvement in trace right pleural effusion and right basilar density. EKG: Normal sinus rhythm with rate of 94, prolonged QT at 500, no acute ST changes seen. ASSESSMENT AND PLAN: This is an 84-year-old female who presents with weakness and found to be in sepsis with urinary tract infection. 1. Sepsis secondary to urinary tract infection, meets criteria for sepsis with tachycardia, temperature spike, leukocytosis and elevated lactic acid at 3.4. Received fluids in the ER. Will continue IV normal saline 125 mL per hour. Received Rocephin in the ER. Will start on Zosyn until the final cultures are available. Follow the repeat lactic acid. Follow hemodynamics. Closely monitor in the med tele. 2. Acute kidney injury on chronic kidney disease stage III. Baseline creatinine around 1.7. Currently creatinine of 1.9. Avoid nephrotoxic agents. Holding the diuretics. Getting fluids. Follow the repeat labs. 3. Diabetes. Continue home Lantus insulin sliding scale. Follow the blood sugars. Follow the HbA1c level. 4. Coronary artery disease. Mild non obstructive CAD on cath in 2011. Continue beta opal, Plavix. Seems stable. 5. Hypothyroidism, on Synthroid. 6. History of mild obstructive sleep and nocturnal hypoxia, not using cpap. oxygen supplementation. 7. Anemia of chronic kidney disease, iron deficiency anemia, on iron supplements. Hemoglobin at 10.4, seems stable. 8. Depression, anxiety. Continue Abilify, Wellbutrin. 9. Gastroesophageal reflux disease, on Protonix. 10. History of cerebrovascular accident, on aspirin. 11. History of chronic diastolic congestive heart failure, recurrent pleural effusion requiring multiple thoracenteses. History of severe mitral regurgitation due to prolapse of P2 segment, status post mitral valve repair with resection of the P2 leaflet and placement of dura and mitral valve annuloplasty, patent foramen ovale, status post surgical close at the time of mitral valve repair. Chronic lymphedema and venous insufficiency of both lower extremities. Getting fluids. Holding diuretics. Monitor for volume overload. 12. History of rheumatic fever as a child. 13. Prolonged Qt. Avoid qt prolonging drugs. Follow repeat ekg. 14.. Deep venous thrombosis prophylaxis. Placed on heparin subQ. DISPOSITION: Closely monitor in the med tele. Level 1 full code. Expect to discharge home and follow with family doctor. PT and OT prior to discharge. MTDD
[2020-01-11] MEDS: PIPERACILLIN/TAZOBACTAM 3.375 GM in DEXTROSE 5% 100 ML IV SCH ×3 (03:36→20:12)
[2020-01-11] MEDS: SODIUM CHLORIDE 0.9% 1000ML 1,000 ML IV SCH ×3 (05:35→21:23)
[2020-01-11] MEDS: LEVOTHYROXINE SODIUM 175 MCG TABLET PO SCH (05:35)
[2020-01-11 06:07] LABS: BUN Creatinine Ratio 27.7 (10-20); Calcium 7.9 mg/dl (8.5-10.1); Creatinine Clr Calc Pharmacy 24.7 ml/min; Est GFR (African American) 34.4; Est GFR (Non-African American) 29.7; Potassium 3.6 mmol/L (3.5-5.1)
[2020-01-11] MEDS: ALBUTEROL HFA 8 GM INHALER INH SCH ×2 (07:12→11:14)
[2020-01-11 07:15] LABS: Estimated Average Glucose 160 mg/dl; Hemoglobin A1C 7.2 % (4.5-5.6)
[2020-01-11] MEDS: CHOLECALCIFEROL 1,000 UNITS 25 MCG TAB PO SCH (07:23)
[2020-01-11] MEDS: BuPROPion SR 100 MG TABCR PO SCH ×2 (07:23→20:16)
[2020-01-11] MEDS: carvediloL 12.5 MG TAB PO SCH ×2 (07:24→20:14)
[2020-01-11] MEDS: MAGNESIUM OXIDE 400 MG TAB PO SCH ×3 (07:24→20:16)
[2020-01-11] MEDS: PANTOprazole 40 MG TAB PO SCH (07:24)
[2020-01-11] MEDS: DOCUSATE SODIUM 100 MG CAP PO SCH ×2 (07:24→20:14)
[2020-01-11] MEDS: ARIPIprazole 1 MG/ML ORAL SOLN 150 ML BTL PO SCH (07:24)
[2020-01-11] MEDS: CLOPIDOGREL BISULFATE 75 MG TAB PO SCH (07:24)
[2020-01-11] MEDS: INSULIN ASPART 100 UNITS/ML 3 ML PEN SC SCH ×4 (07:50→20:17)
[2020-01-11] MEDS: HEPARIN SOD 5,000 UNIT/0.5 ML VIAL SQ SCH ×2 (07:50→20:14)
[2020-01-11] MEDS: INSULIN GLARGINE SOLOSTAR 100 UNITS/ML 3 ML PEN SC SCH (07:50)
[2020-01-11] MEDS: FERROUS FUMARATE/ASCORBIC ACID 65 MG CAPCR PO SCH (11:09)
[2020-01-11] MEDS: ZINC SULFATE 220 MG CAPSULE PO SCH (11:09)
[2020-01-11] MEDS: CALCIUM 600MG + VIT D 400 IU TAB PO SCH (11:09)
[2020-01-11 11:26] LABS: Basophils # (auto) 0.02 K/uL (0-0.2); Basophils % (auto) 0.1 %; Eosinophils # (auto) 0.01 K/uL (0-0.5); Eosinophils % (auto) 0.1 %; Hematocrit (blood only) 26.8 % (37-47); Hemoglobin 8.7 g/dL (12.0-16.0); Immature Granulocytes # (auto) 0.06 K/uL (0.00-0.02); Immature Granulocytes % (auto) 0.4 %; Lymphocytes # (auto) 0.74 K/uL (1.2-3.4); Lymphocytes % (auto) 4.8 %; Mean Corpuscular Hemoglobin 30.2 pg (25-34); Mean Corpuscular Hgb Conc 32.5 g/dL (32-36); Mean Corpuscular Volume 93.1 fL (80-100); Mean Platelet Volume 8.7 fL (7.4-10.4); Monocytes # (auto) 1.09 K/uL (0.11-0.59); Monocytes % (auto) 7.1 %; Neutrophils # (auto) 13.39 K/uL (1.4-6.5); Neutrophils % (auto) 87.5 %; Platelet Count 228 K/uL (130-400); RDW Coefficient of Variation 13.7 % (11.5-14.5); RDW Standard Deviation 46.5 fL (36.4-46.3); Red Blood Count 2.88 M/uL (4.2-5.4); White Blood Count 15.31 K/uL (4.8-10.8)
--- NOTE | 2020-01-11 12:38 | Hospitalist Progress Note ---
Date of Service January 11, 2020 Assessment & Plan (1) Sepsis: Presented to ER with weakness and noted to have fever with tachycardia and increasing white count Has sepsis secondary to UTI and received initial management for sepsis Has been on intravenous Zosyn Awaiting urine and blood culture Medically better and will continue current management (2) UTI (urinary tract infection): As above (3) BARBARA (acute kidney injury): Likely secondary to dehydration Creatinine has been improving We will continue cautious amount of intravenous fluid Monitor creatinine (4) Chronic diastolic CHF (congestive heart failure): No signs and or symptoms of fluid overload (5) Diabetes mellitus, type II: Will hold any oral antidiabetic medications SSI (6) CVA (cerebral vascular accident): Continue aspirin DVT prophylaxis Subcu heparin CODE STATUS Full Admission and Anticipated Discharge Date Admission Date: January 10, 2020 Subjective 01/19/2020 The patient was seen and examined in medical telemetry unit She was admitted with sepsis secondary to UTI and she has been feeling better since admission Denies any fever and/or chills, no nausea and or vomiting Denies any urinary symptoms Review of Systems Review of Systems: All systems reviewed and are unremarkable except as noted below Gastrointestinal: no abdominal pain and no diarrhea/loose stools Genitourinary: no dysuria Musculoskeletal: Denies any acute arthritis involving any joints Physical Exam Physical Exam: Sitting on a chair without any acute distress Constitutional: + ill appearing and + thin; no acute distress Eyes: PERRL, conjunctivae normal, anicteric sclerae ENMT: external ear and nose normal, oropharynx normal Neck: trachea midline, no thyromegaly Respiratory: normal respiratory effort; no respiratory distress Auscultat ion: lungs clear to auscultation bilaterally Cardiovascular: Rate/Rhythm: regular rate and regular rhythm Gastrointestinal (Abdomen): Inspection/Auscultation: abdomen normal to inspection; abdomen not distended Percussion/Palpation: + abdomen tender (Mi nimally tender hypogastrium) Musculoskeletal: No acute arthritis in any joints Neurologic: Alert, awake and oriented x3 Results & Data Results & Data ([facility]) Vital Signs (Past 12 Hours) Vital Signs Temp Pulse Resp BP Pulse Ox 01/11/20 11:15 77 14 95 01/11/20 11:04 36.4 C L 71 18 124/68 95 01/11/20 07:23 37.0 C 76 18 119/61 97 01/11/20 07:13 79 14 95 01/11/20 03:07 36.7 C 84 18 145/57 H 98 Laboratory Results Short CBC 01/10/20 01/11/20 Range/Units 18:15 05:21 WBC 20.34 H 15.31 H (4.8-10.8) K/uL Hgb 10.4 L 8.7 L (12.0-16.0) g/dL Hct 32.0 L 26.8 L (37-47) % Plt Count 277 228 (130-400) K/uL BMP 01/10/20 01/11/20 18:15 05:21 Sodium 133 L 137 Potassium 3.8 3.6 Chloride 97 L 104 Carbon Dioxide 29 27 BUN 50 H 44 H Creatinine 1.96 H 1.60 H D Glucose 276 H 193 H Calcium 9.2 7.9 L Cardiac Enzymes 01/10/20 Range/Units 18:15 Troponin I < 0.015 (0-0.045) ng/ml Liver Function 01/10/20 Range/Units 18:15 Total Bilirubin 0.3 (0.2-1) mg/dl AST 21 (15-37) U/L ALT 31 (12-78) U/L Alkaline Phosphatase 78 (45-117) U/L Albumin 3.5 (3.4-5.0) gm/dl Urine 01/10/20 Range/Units 18:35 Urine Color Yellow Urine Appearance Cloudy A (Clear) Urine pH 5.0 (4.5-7.5) Ur Specific [place] 1.013 (1.000-1.030) Urine Protein Negative (Negative) Urine Glucose (UA) Negative (Negative) Medications Administered Current Inpatient Medications Acetaminophen (Tylenol) 650 mg PO Q4H PRN PRN Reason: Pain or Fever Stop: 02/09/20 21:19 Albuterol (Ventolin Hfa) 2 puffs INH QIDR [facility] Stop: 02/09/20 21:19 Last Admin: 01/11/20 11:14 Dose: 2 puffs Documented by: Aripiprazole (Abilify) 1 mg PO QAM [facility] Stop: 02/10/20 08:59 Last Admin: 01/11/20 07:24 Dose: 1 mg Documented by: Bupropion HCl (Wellbutrin-Sr) 100 mg PO BID [facility] Stop: 02/09/20 21:19 Last Admin: 01/11/20 07:23 Dose: 100 mg Documented by: Carvedilol (Coreg) 12.5 mg PO BID [facility] Stop: 02/09/20 21:19 Last Admin: 01/11/20 07:24 Dose: 12.5 mg Documented by: Clopidogrel Bisulfate (Plavix) 75 mg PO QAM [facility] Stop: 02/10/20 08:59 Last Admin: 01/11/20 07:24 Dose: 75 mg Documented by: Docusate Sodium (Colace) 100 mg PO BID [facility] Stop: 02/09/20 21:19 Last Admin: 01/11/20 07:24 Dose: 100 mg Documented by: Docusate Sodium/Ferrous Fumarate (Darwin-Sequels) 65 mg PO QDL [facility] Stop: 02/10/20 11:29 Last Admin: 01/11/20 11:09 Dose: 65 mg Documented by: Heparin Sodium (Porcine) (Heparin Sodium (Porcine)) 5,000 units SQ Q12 [facility] Stop: 02/09/20 21:19 Last Admin: 01/11/20 07:50 Dose: 5,000 units Documented by: Sodium Chloride (Nss 1000ml) 1,000 mls @ 125 mls/hr IV .Q8H [facility] Stop: 02/09/20 21:19 Last Admin: 01/11/20 05:35 Dose: 125 mls/hr Documented by: Piperacillin Sod/Tazobactam (Sod 3.375 gm/ Dextrose) 115 mls @ 28.75 mls/hr IV Q8H [facility]; Protocol Stop: 01/21/20 03:59 Last Admin: 01/11/20 11:29 Dose: 28.8 mls/hr Documented by: Insulin Aspart (Novolog Flexpen) 0 units SC ACHS [facility] Stop: 02/09/20 21:19 Last Admin: 01/11/20 11:31 Dose: 3 units Documented by: Insulin Glargine (Lantus Solostar Pen) [facility] Stop: 02/10/20 08:59 Last Admin: 01/11/20 07:50 Dose: 15 units Documented by: Levothyroxine Sodium (Synthroid) 175 mcg PO DAILYBB [facility] Stop: 02/10/20 06:29 Last Admin: 01/11/20 05:35 Dose: 175 mcg Documented by: Magnesium Oxide (Mag-Ox) 400 mg PO TID [facility] Stop: 02/09/20 21:19 Last Admin: 01/11/20 07:24 Dose: 400 mg Documented by: Miscellaneous Information (Consult) 1 ea N/A UD PRN PRN Reason: Consult Stop: 02/09/20 21:19 Multivitamins/Minerals (Caltrate Plus) 1 tab PO QDL [facility] Stop: 02/10/20 11:29 Last Admin: 01/11/20 11:09 Dose: 1 tab Documented by: Nitroglycerin (Nitrostat) 0.4 mg SL UD PRN PRN Reason: Chest Pain Stop: 02/09/20 21:19 Ondansetron HCl (Zofran) 4 mg IV Q6H PRN PRN Reason: Nausea Stop: 02/09/20 21:19 Pantoprazole Sodium (Protonix) 40 mg PO QAM [facility] Stop: 02/10/20 08:59 Last Admin: 01/11/20 07:24 Dose: 40 mg Documented by: Polyethylene Glycol (Miralax Powder Packet) 17 gm PO DAILY PRN PRN Reason: Constipation Stop: 02/09/20 21:19 Tramadol HCl (Ultram) 50 mg PO HS PRN PRN Reason: leg pain Stop: 02/09/20 21:19 Vitamin D (Vitamin D3) 5,000 units PO QAM [facility] Stop: 02/10/20 08:59 Last Admin: 01/11/20 07:23 Dose: 5,000 units Documented by: Zinc Sulfate (Zinc Sulfate) 220 mg PO QDL [facility] Stop: 02/10/20 11:29 Last Admin: 01/11/20 11:09 Dose: 220 mg Documented by: (1) Sepsis Sepsis acute organ dysfunction status: without acute organ dysfunction Sepsis type: sepsis due to unspecified organism Qualified Code(s): A41.9 - Sepsis, unspecified organism (2) Diabetes mellitus, type II 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
[2020-01-11] MEDS ORDERED: ALBUTEROL HFA 8 GM INHALER INH PRN (13:42)
--- NOTE | 2020-01-11 19:09 | Electrocardiogram Report ---
Test Reason : Blood Pressure : / mmHG Vent. Rate : 094 BPM Atrial Rate : 094 BPM P-R Int : 176 ms QRS Dur : 092 ms QT Int : 400 ms P-R-T Axes : 067 071 076 degrees QTc Int : 500 ms Normal sinus rhythm Prolonged QT Abnormal ECG When compared with ECG of 20-DEC-2018 18:58, QT has lengthened Confirmed by Devan Philip ([id number]) on 01/11/2020 7:09:11 PM Referred By: REFERRED SELF Confirmed By:Devan Philip
[2020-01-12] MEDS: PIPERACILLIN/TAZOBACTAM 3.375 GM in DEXTROSE 5% 100 ML IV SCH ×3 (03:59→19:42)
[2020-01-12] MEDS: SODIUM CHLORIDE 0.9% 1000ML 1,000 ML IV SCH ×3 (05:05→20:40)
[2020-01-12] MEDS: LEVOTHYROXINE SODIUM 175 MCG TABLET PO SCH (05:52)
[2020-01-12 07:14] LABS: Basophils # (auto) 0.02 K/uL (0-0.2); Basophils % (auto) 0.1 %; Eosinophils # (auto) 0.12 K/uL (0-0.5); Eosinophils % (auto) 0.7 %; Hematocrit (blood only) 27.1 % (37-47); Hemoglobin 8.8 g/dL (12.0-16.0); Immature Granulocytes # (auto) 0.11 K/uL (0.00-0.02); Immature Granulocytes % (auto) 0.7 %; Lymphocytes # (auto) 1.02 K/uL (1.2-3.4); Lymphocytes % (auto) 6.2 %; Mean Corpuscular Hemoglobin 30.2 pg (25-34); Mean Corpuscular Hgb Conc 32.5 g/dL (32-36); Mean Corpuscular Volume 93.1 fL (80-100); Mean Platelet Volume 8.8 fL (7.4-10.4); Monocytes # (auto) 1.17 K/uL (0.11-0.59); Monocytes % (auto) 7.1 %; Neutrophils # (auto) 14.05 K/uL (1.4-6.5); Neutrophils % (auto) 85.2 %; Platelet Count 232 K/uL (130-400); RDW Standard Deviation 48.1 fL (36.4-46.3); Red Blood Count 2.91 M/uL (4.2-5.4); White Blood Count 16.49 K/uL (4.8-10.8)
[2020-01-12 07:26] LABS: BUN Creatinine Ratio 20.8 (10-20); Calcium 7.5 mg/dl (8.5-10.1); Creatinine Clr Calc Pharmacy 26.5 ml/min; Est GFR (African American) 37.8; Est GFR (Non-African American) 32.6; Phosphorus 2.1 mg/dl (2.5-4.9); Potassium 4.3 mmol/L (3.5-5.1)
[2020-01-12] MEDS: CHOLECALCIFEROL 1,000 UNITS 25 MCG TAB PO SCH (07:32)
[2020-01-12] MEDS: CLOPIDOGREL BISULFATE 75 MG TAB PO SCH (07:32)
[2020-01-12] MEDS: MAGNESIUM OXIDE 400 MG TAB PO SCH ×3 (07:32→20:28)
[2020-01-12] MEDS: BuPROPion SR 100 MG TABCR PO SCH ×2 (07:32→20:29)
[2020-01-12] MEDS: DOCUSATE SODIUM 100 MG CAP PO SCH ×2 (07:32→20:28)
[2020-01-12] MEDS: carvediloL 12.5 MG TAB PO SCH ×2 (07:32→20:29)
[2020-01-12] MEDS: PANTOprazole 40 MG TAB PO SCH (07:32)
[2020-01-12] MEDS: ARIPIprazole 1 MG/ML ORAL SOLN 150 ML BTL PO SCH (07:33)
[2020-01-12] MEDS: HEPARIN SOD 5,000 UNIT/0.5 ML VIAL SQ SCH ×2 (07:54→20:26)
[2020-01-12] MEDS: INSULIN GLARGINE SOLOSTAR 100 UNITS/ML 3 ML PEN SC SCH (07:55)
[2020-01-12] MEDS: INSULIN ASPART 100 UNITS/ML 3 ML PEN SC SCH ×4 (07:55→20:27)
[2020-01-12] MEDS ORDERED: SODIUM PHOSPHATE 3 MMOL/1 ML 5 ML VIAL IV ONE (08:33)
[2020-01-12] MEDS ORDERED: SODIUM PHOSPHATE 30 MMOL in SODIUM CHLORIDE 0.9% 500 ML IV ONE (09:00)
[2020-01-12] MEDS: CALCIUM 600MG + VIT D 400 IU TAB PO SCH (11:20)
[2020-01-12] MEDS: FERROUS FUMARATE/ASCORBIC ACID 65 MG CAPCR PO SCH (11:20)
[2020-01-12] MEDS: ZINC SULFATE 220 MG CAPSULE PO SCH (11:21)
--- NOTE | 2020-01-12 14:26 | Hospitalist Progress Note ---
Date of Service January 12, 2020 Assessment & Plan (1) Sepsis: Presented to ER with weakness and noted to have fever with tachycardia and increasing white count Has sepsis secondary to UTI and received initial management for sepsis Medically better and will continue current management Urine culture is positive for Klebsiella pneumoniae which is pansensitive Received intravenous Zosyn since admission and will change it to intravenous ceftriaxone Like to be discharged on oral Keflex for 10 days in total of antibiotic Advised to drink plenty of fluids We will get PT and OT evaluation (2) UTI (urinary tract infection): As above (3) BARBARA (acute kidney injury): Likely secondary to dehydration Creatinine has been improving We will continue cautious amount of intravenous fluid Creatinine has been improving and it is 1.48 as of 01/12/2020 (4) Chronic diastolic CHF (congestive heart failure): No signs and or symptoms of fluid overload (5) Diabetes mellitus, type II: Will hold any oral antidiabetic medications SSI (6) CVA (cerebral vascular accident): Continue aspirin DVT prophylaxis Subcu heparin CODE STATUS Full Advised increased ambulation PT and OT evaluation and possible discharge home tomorrow Admission and Anticipated Discharge Date Admission Date: January 10, 2020 Subjective 01/11/2020 The patient was seen and examined in medical telemetry unit She was admitted with sepsis secondary to UTI and she has been feeling better since admission Denies any fever and/or chills, no nausea and or vomiting Denies any urinary symptoms 01/12/2020 The patient was seen and examined in medical telemetry unit She has been feeling lot better and denies any urinary symptoms Her main complaints remain to be weakness Denies any fever and/or chills, any abdominal pain, nausea and or vomiting Review of Systems Review of Systems: All systems reviewed and are unremarkable except as noted below Musculoskeletal: Denies any acute arthritis involving any joints Physical Exam Physical Exam: Sitting on a chair without any acute distress Constitutional: + thin; no acute distress and not ill appearing Eyes: PERRL, conjunctivae normal, anicteric sclerae ENMT: external ear and nose normal, oropharynx normal Neck: trachea midline, no thyromegaly Respiratory: normal respiratory effort; no respiratory distress Auscult ation: lungs clear to auscultation bilaterally Cardiovascular: Rate/Rhythm: regular rate and regular rhythm Gastrointestinal (Abdomen): Inspection/Auscultation: abdomen normal to inspection and normal bowel sounds; abdomen not distended Percussion/Palpation: abdomen soft; abdomen nontender (Minimally tender hypogastrium) Musculoskeletal: No acute arthritis involving any joints Neurologic: moves all extremities; no focal motor deficits Results & Data Results & Data ([facility]) Vital Signs (Past 12 Hours) Vital Signs Temp Pulse Resp BP Pulse Ox 01/12/20 12:19 36.5 C 73 18 153/63 H 96 01/12/20 06:39 37.3 C 77 18 117/87 96 01/12/20 03:40 37.5 C 81 16 131/57 L 93 Laboratory Results Short CBC 01/12/20 Range/Units 06:54 WBC 16.49 H (4.8-10.8) K/uL Hgb 8.8 L (12.0-16.0) g/dL Hct 27.1 L (37-47) % Plt Count 232 (130-400) K/uL BMP 01/12/20 06:54 Sodium 139 Potassium 4.3 D Chloride 110 H Carbon Dioxide 24 BUN 31 H Creatinine 1.48 H Glucose 191 H Calcium 7.5 L Medications Administered Current Inpatient Medications Acetaminophen (Tylenol) 650 mg PO Q4H PRN PRN Reason: Pain or Fever Stop: 02/09/20 21:19 Albuterol (Ventolin Hfa) 2 puffs INH Q6H PRN PRN Reason: Shortness Of Breath Or Wheezing Stop: 02/10/20 13:44 Aripiprazole (Abilify) 1 mg PO [facility]AWW [facility] Stop: 02/10/20 08:59 Last Admin: 01/12/20 07:33 Dose: 1 mg Documented by: Bupropion HCl (Wellbutrin-Sr) 100 mg PO BID [facility] Stop: 02/09/20 21:19 Last Admin: 01/12/20 07:32 Dose: 100 mg Documented by: Carvedilol (Coreg) 12.5 mg PO BID [facility] Stop: 02/09/20 21:19 Last Admin: 01/12/20 07:32 Dose: 12.5 mg Documented by: Clopidogrel Bisulfate (Plavix) 75 mg PO QAM [facility] Stop: 02/10/20 08:59 Last Admin: 01/12/20 07:32 Dose: 75 mg Documented by: Docusate Sodium (Colace) 100 mg PO BID [facility] Stop: 02/09/20 21:19 Last Admin: 01/12/20 07:32 Dose: 100 mg Documented by: Docusate Sodium/Ferrous Fumarate (Darwin-Sequels) 65 mg PO QDL [facility] Stop: 02/10/20 11:29 Last Admin: 01/12/20 11:20 Dose: 65 mg Documented by: Heparin Sodium (Porcine) (Heparin Sodium (Porcine)) 5,000 units SQ Q12 [facility] Stop: 02/09/20 21:19 Last Admin: 01/12/20 07:54 Dose: 5,000 units Documented by: Sodium Chloride (Nss 1000ml) 1,000 mls @ 125 mls/hr IV .Q8H [facility] Stop: 02/09/20 21:19 Last Admin: 01/12/20 13:01 Dose: 125 mls/hr Documented by: Piperacillin Sod/Tazobactam (Sod 3.375 gm/ Dextrose) 115 mls @ 28.75 mls/hr IV Q8H [facility]; Protocol Stop: 01/21/20 03:59 Last Admin: 01/12/20 11:20 Dose: 28.8 mls/hr Documented by: Sodium Phosphate 30 mmol/ (Sodium Chloride) 510 mls @ 88 mls/hr IV ONE ONE Stop: 01/12/20 14:47 Last Admin: 01/12/20 10:10 Dose: 88 mls/hr Documented by: Insulin Aspart (Novolog Flexpen) 0 units SC ACHS [facility] Stop: 02/09/20 21:19 Last Admin: 01/12/20 12:00 Dose: 3 units Documented by: Insulin Glargine (Lantus Solostar Pen) 15 units SC QAM [facility] Stop: 02/10/20 08:59 Last Admin: 01/12/20 07:55 Dose: 15 units Documented by: Levothyroxine Sodium (Synthroid) 175 mcg PO DAILYBB [facility] Stop: 02/10/20 06:29 Last Admin: 01/12/20 05:52 Dose: 175 mcg Documented by: Magnesium Oxide (Mag-Ox) 400 mg PO TID [facility] Stop: 02/09/20 21:19 Last Admin: 01/12/20 13:01 Dose: 400 mg Documented by: Miscellaneous Information (Consult) 1 ea N/A UD PRN PRN Reason: Consult Stop: 02/09/20 21:19 Multivitamins/Minerals (Caltrate Plus) 1 tab PO QDL [facility] Stop: 02/10/20 11:29 Last Admin: 01/12/20 11:20 Dose: 1 tab Documented by: Nitroglycerin (Nitrostat) 0.4 mg SL UD PRN PRN Reason: Chest Pain Stop: 02/09/20 21:19 Ondansetron HCl (Zofran) 4 mg IV Q6H PRN PRN Reason: Nausea Stop: 02/09/20 21:19 Pantoprazole Sodium (Protonix) 40 mg PO QAWW [facility] Stop: 02/10/20 08:59 Last Admin: 01/12/20 07:32 Dose: 40 mg Documented by: Polyethylene Glycol (Miralax Powder Packet) 17 gm PO DAILY PRN PRN Reason: Constipation Stop: 02/09/20 21:19 Tramadol HCl (Ultram) 50 mg PO HS PRN PRN Reason: leg pain Stop: 02/09/20 21:19 Vitamin D (Vitamin D3) 5,000 units PO [facility] Stop: 02/10/20 08:59 Last Admin: 01/12/20 07:32 Dose: 5,000 units Documented by: Zinc Sulfate (Zinc Sulfate) 220 mg PO QDL [facility] Stop: 02/10/20 11:29 Last Admin: 01/12/20 11:21 Dose: 220 mg Documented by: (1) Sepsis Sepsis acute organ dysfunction status: without acute organ dysfunction Sepsis type: sepsis due to unspecified organism Qualified Code(s): A41.9 - Sepsis, unspecified organism (2) Diabetes mellitus, type II Diabetes mellitus snf insulin use: unspecified snf insulin use status Diabetes mellitus complication status: with kidney complications Diabetes mellitus complication detail: with chronic kidney disease Chronic kidney disease stage: stage 3 (moderate) Qualified Code(s): E11.22 - Type 2 diabetes mellitus with diabetic chronic kidney disease; N18.3 - Chronic kidney disease, stage 3 (moderate)
[2020-01-12] MEDS: ACETAMINOPHEN 325 MG TAB PO PRN (19:29)
[2020-01-13] MEDS: PIPERACILLIN/TAZOBACTAM 3.375 GM in DEXTROSE 5% 100 ML IV SCH ×2 (04:00→11:32)
[2020-01-13] MEDS: ACETAMINOPHEN 325 MG TAB PO PRN (04:49)
[2020-01-13] MEDS: SODIUM CHLORIDE 0.9% 1000ML 1,000 ML IV SCH ×2 (04:49→12:25)
[2020-01-13] MEDS: LEVOTHYROXINE SODIUM 175 MCG TABLET PO SCH (05:57)
[2020-01-13 07:23] LABS: Basophils # (auto) 0.02 K/uL (0-0.2); Basophils % (auto) 0.2 %; Eosinophils # (auto) 0.13 K/uL (0-0.5); Eosinophils % (auto) 1.3 %; Hematocrit (blood only) 25.3 % (37-47); Hemoglobin 8.2 g/dL (12.0-16.0); Immature Granulocytes # (auto) 0.08 K/uL (0.00-0.02); Immature Granulocytes % (auto) 0.8 %; Lymphocytes # (auto) 0.99 K/uL (1.2-3.4); Lymphocytes % (auto) 10.3 %; Mean Corpuscular Hemoglobin 30.1 pg (25-34); Mean Corpuscular Hgb Conc 32.4 g/dL (32-36); Mean Platelet Volume 8.9 fL (7.4-10.4); Monocytes # (auto) 0.77 K/uL (0.11-0.59); Neutrophils # (auto) 7.66 K/uL (1.4-6.5); Neutrophils % (auto) 79.4 %; Platelet Count 226 K/uL (130-400); RDW Coefficient of Variation 14.3 % (11.5-14.5); RDW Standard Deviation 48.7 fL (36.4-46.3); Red Blood Count 2.72 M/uL (4.2-5.4); White Blood Count 9.65 K/uL (4.8-10.8)
[2020-01-13] MEDS: CHOLECALCIFEROL 1,000 UNITS 25 MCG TAB PO SCH (07:39)
[2020-01-13] MEDS: MAGNESIUM OXIDE 400 MG TAB PO SCH ×2 (07:40→11:32)
[2020-01-13] MEDS: carvediloL 12.5 MG TAB PO SCH (07:40)
[2020-01-13] MEDS: PANTOprazole 40 MG TAB PO SCH (07:40)
[2020-01-13] MEDS: CLOPIDOGREL BISULFATE 75 MG TAB PO SCH (07:40)
[2020-01-13] MEDS: DOCUSATE SODIUM 100 MG CAP PO SCH (07:40)
[2020-01-13] MEDS: BuPROPion SR 100 MG TABCR PO SCH (07:40)
[2020-01-13] MEDS: ARIPIprazole 1 MG/ML ORAL SOLN 150 ML BTL PO SCH (07:40)
[2020-01-13 07:46] LABS: BUN Creatinine Ratio 18.3 (10-20); Creatinine Clr Calc Pharmacy 28.1 ml/min; Est GFR (African American) 39.4; Magnesium 1.9 mg/dl (1.8-2.4); Potassium 3.8 mmol/L (3.5-5.1)
[2020-01-13] MEDS: HEPARIN SOD 5,000 UNIT/0.5 ML VIAL SQ SCH (08:36)
[2020-01-13] MEDS: INSULIN ASPART 100 UNITS/ML 3 ML PEN SC SCH ×2 (08:36→12:17)
[2020-01-13] MEDS: INSULIN GLARGINE SOLOSTAR 100 UNITS/ML 3 ML PEN SC SCH (08:37)
[2020-01-13] MEDS: CALCIUM 600MG + VIT D 400 IU TAB PO SCH (11:32)
[2020-01-13] MEDS: FERROUS FUMARATE/ASCORBIC ACID 65 MG CAPCR PO SCH (11:32)
[2020-01-13] MEDS: ZINC SULFATE 220 MG CAPSULE PO SCH (11:32)
--- NOTE | 2020-01-13 14:53 | Hospitalist Progress Note ---
Date of Service January 13, 2020 Assessment & Plan (1) Sepsis: Presented to ER with weakness and noted to have fever with tachycardia and increasing white count Has sepsis secondary to UTI and received initial management for sepsis Medically better and will continue current management Urine culture is positive for Klebsiella pneumoniae which is pansensitive Received intravenous Zosyn since admission Like to be discharged on oral antibiotic for 10 days in total of antibiotic Advised to drink plenty of fluids We will get PT and OT evaluation (2) UTI (urinary tract infection): As above (3) BARBARA (acute kidney injury): Likely secondary to dehydration Creatinine has been improving We will continue cautious amount of intravenous fluid Creatinine has been improving and it is 1.48 as of 01/12/2020 (4) Chronic diastolic CHF (congestive heart failure): No signs and or symptoms of fluid overload (5) Diabetes mellitus, type II: Will hold any oral antidiabetic medications SSI (6) CVA (cerebral vascular accident): Continue aspirin DVT prophylaxis Subcu heparin CODE STATUS Full Advised increased ambulation PT and OT evaluation and possible discharge home soon Admission and Anticipated Discharge Date Admission Date: January 10, 2020 Subjective Patient is sitting up in chair, in no acute distress. She says she feels much better since she got into the hospital. Currently denies any fevers, chills, chest pain, shortness of breath, abdominal pain, nausea or vomiting. Per nurse patient is able to ambulate with assistance. Review of Systems Review of Systems: All systems reviewed & are unremarkable except as noted in HPI & below Constitutional: no fever and no chills Respiratory: no cough and no dyspnea Cardiovascular: no chest pain and no palpitations Gastrointestinal: no abdominal pain and no vomiting Genitourinary: no dysuria Physical Exam Physical Exam: Physical Exam: Sitting on a chair without any acute distress Constitutional: + thin; no acute distress and not ill appearing Eyes: PERRL, conjunctivae normal, anicteric sclerae ENMT: external ear and nose normal, oropharynx normal Neck: trachea midline, no thyromegaly Respiratory: normal respiratory effort; no respiratory distress Auscu ltation: lungs clear to auscultation bilaterally, no wheezing, rhonchi or crackles noted Cardiovascular: Rate/Rhythm: regular rate and regular rhythm Gastrointestinal (Abdomen): Inspection/Auscultation: abdomen normal to inspection and normal bowel sounds; abdomen not distended Percussion/Palpation: abdomen soft; abdomen nontender Musculoskeletal: No acute arthritis involving any joints, with extremity spontaneously, trace lower extremity edema, and venous stasis dermatitis bilaterally noted Neurologic: moves all extremities; no focal motor deficits Results & Data Results & Data ([facility]) Vital Signs (Past 12 Hours) Vital Signs Temp Pulse Resp BP Pulse Ox 01/13/20 11:13 36.3 C L 84 18 109/61 95 01/13/20 07:08 36.5 C 75 18 115/71 95 01/13/20 04:22 36.5 C 80 16 135/70 95 Laboratory Results 01/13/20 01/13/20 01/13/20 Range/Units 11:26 07:25 06:45 WBC (4.8-10.8) K/uL RBC (4.2-5.4) M/uL Hgb (12.0-16.0) g/dL Hct (37-47) % MCV (80-100) fL MCH (25-34) pg MCHC (32-36) g/dL RDW Std Deviation (36.4-46.3) fL RDW Coeff of Rosalba (11.5-14.5) % Plt Count (130-400) K/uL MPV (7.4-10.4) fL Immature Gran % (Auto) % Neut % (Auto) % Lymph % (Auto) % [place] % (Auto) % Eos % (Auto) % Baso % (Auto) % Neut # (Auto) (1.4-6.5) K/uL Lymph # (Auto) (1.2-3.4) K/uL [place] # (Auto) (0.11-0.59) K/uL Eos # (Auto) (0-0.5) K/uL Baso # (Auto) (0-0.2) K/uL Immature Gran # (Auto) (0.00-0.02) K/uL Sodium 140 (136-145) mmol/L Potassium 3.8 (3.5-5.1) mmol/L Chloride 113 H (98-107) mmol/L Carbon Dioxide 21 (21-32) mmol/L Anion Gap 6.0 (3-11) BUN 26 H (7-18) mg/dl Creatinine 1.43 H (0.6-1.2) mg/dl Est Cr Clr Drug Dosing 28.1 ml/min Est GFR ( Amer) 39.4 Est GFR (Non-Af Amer) 34.0 BUN/Creatinine Ratio 18.3 (10-20) Glucose 189 H (70-99) mg/dl POC Glucose 222 H 202 H (70-99) mg/dl Calcium 7.0 L (8.5-10.1) mg/dl Magnesium 1.9 (1.8-2.4) mg/dl 01/13/20 01/12/20 01/12/20 Range/Units 06:45 20:11 16:29 WBC 9.65 (4.8-10.8) K/uL RBC 2.72 L (4.2-5.4) M/uL Hgb 8.2 L (12.0-16.0) g/dL Hct 25.3 L (37-47) % MCV 93.0 (80-100) fL MCH 30.1 (25-34) pg MCHC 32.4 (32-36) g/dL RDW Std Deviation 48.7 H (36.4-46.3) fL RDW Coeff of Rosalba 14.3 (11.5-14.5) % Plt Count 226 (130-400) K/uL MPV 8.9 (7.4-10.4) fL Immature Gran % (Auto) 0.8 % Neut % (Auto) 79.4 % Lymph % (Auto) 10.3 % [place] % (Auto) 8.0 % Eos % (Auto) 1.3 % Baso % (Auto) 0.2 % Neut # (Auto) 7.66 H (1.4-6.5) K/uL Lymph # (Auto) 0.99 L (1.2-3.4) K/uL [place] # (Auto) 0.77 H (0.11-0.59) K/uL Eos # (Auto) 0.13 (0-0.5) K/uL Baso # (Auto) 0.02 (0-0.2) K/uL Immature Gran # (Auto) 0.08 H (0.00-0.02) K/uL Sodium (136-145) mmol/L Potassium (3.5-5.1) mmol/L Chloride (98-107) mmol/L Carbon Dioxide (21-32) mmol/L Anion Gap (3-11) BUN (7-18) mg/dl Creatinine (0.6-1.2) mg/dl Est Cr Clr Drug Dosing ml/min Est GFR ( Amer) Est GFR (Non-Af Amer) BUN/Creatinine Ratio (10-20) Glucose (70-99) mg/dl POC Glucose 266 H 249 H (70-99) mg/dl Calcium (8.5-10.1) mg/dl Magnesium (1.8-2.4) mg/dl Medications Administered Current Inpatient Medications Acetaminophen (Acetaminophen 325 Mg Tab) 650 mg PO Q4H PRN PRN Reason: Pain or Fever Stop: 02/09/20 21:19 Last Admin: 01/13/20 04:49 Dose: 650 mg Documented by: Albuterol (Ventolin Hfa) 2 puffs INH Q6H PRN PRN Reason: Shortness Of Breath Or Wheezing Stop: 02/10/20 13:44 Last Admin: 01/12/20 15:45 Dose: 2 puffs Documented by: Aripiprazole (Abilify) 1 mg PO QAM [facility] Stop: 02/10/20 08:59 Last Admin: 01/13/20 07:40 Dose: 1 mg Documented by: Bupropion HCl (Wellbutrin-Sr) 100 mg PO BID [facility] Stop: 02/09/20 21:19 Last Admin: 01/13/20 07:40 Dose: 100 mg Documented by: Carvedilol (Coreg) 12.5 mg PO BID [facility] Stop: 02/09/20 21:19 Last Admin: 01/13/20 07:40 Dose: 12.5 mg Documented by: Clopidogrel Bisulfate (Plavix) 75 mg PO QAM [facility] Stop: 02/10/20 08:59 Last Admin: 01/13/20 07:40 Dose: 75 mg Documented by: Docusate Sodium (Colace) 100 mg PO BID [facility] Stop: 02/09/20 21:19 Last Admin: 01/13/20 07:40 Dose: 100 mg Documented by: Docusate Sodium/Ferrous Fumarate (Darwin-Sequels) 65 mg PO QDL [facility] Stop: 02/10/20 11:29 Last Admin: 01/13/20 11:32 Dose: 65 mg Documented by: Heparin Sodium (Porcine) (Heparin Sodium (Porcine)) 5,000 units SQ Q12 [facility] Stop: 02/09/20 21:19 Last Admin: 01/13/20 08:36 Dose: 5,000 units Documented by: Sodium Chloride (Nss 1000ml) 1,000 mls @ 125 mls/hr IV .Q8H [facility] Stop: 02/09/20 21:19 Last Admin: 01/13/20 12:25 Dose: 125 mls/hr Documented by: Piperacillin Sod/Tazobactam (Sod 3.375 gm/ Dextrose) 115 mls @ 28.75 mls/hr IV Q8H [facility]; Protocol Stop: 01/21/20 03:59 Last Admin: 01/13/20 11:32 Dose: 28.8 mls/hr Documented by: Insulin Aspart (Novolog Flexpen) 0 units SC ACHS [facility] Stop: 02/09/20 21:19 Last Admin: 01/13/20 12:17 Dose: 3 units Documented by: Insulin Glargine (Lantus Solostar Pen) 15 units SC [facility] Stop: 02/10/20 08:59 Last Admin: 01/13/20 08:37 Dose: 15 units Documented by: Levothyroxine Sodium (Synthroid) 175 mcg PO DAILYBB [facility] Stop: 02/10/20 06:29 Last Admin: 01/13/20 05:57 Dose: 175 mcg Documented by: Magnesium Oxide (Mag-Ox) 400 mg PO TID [facility] Stop: 02/09/20 21:19 Last Admin: 01/13/20 11:32 Dose: 400 mg Documented by: Miscellaneous Information (Consult) 1 ea N/A UD PRN PRN Reason: Consult Stop: 02/09/20 21:19 Multivitamins/Minerals (Caltrate Plus) 1 tab PO QDL [facility] Stop: 02/10/20 11:29 Last Admin: 01/13/20 11:32 Dose: 1 tab Documented by: Nitroglycerin (Nitrostat) 0.4 mg SL UD PRN PRN Reason: Chest Pain Stop: 02/09/20 21:19 Ondansetron HCl (Zofran) 4 mg IV Q6H PRN PRN Reason: Nausea Stop: 02/09/20 21:19 Pantoprazole Sodium (Protonix) 40 mg PO QAM [facility] Stop: 02/10/20 08:59 Last Admin: 01/13/20 07:40 Dose: 40 mg Documented by: Polyethylene Glycol (Miralax Powder Packet) 17 gm PO DAILY PRN PRN Reason: Constipation Stop: 02/09/20 21:19 Tramadol HCl (Ultram) 50 mg PO HS PRN PRN Reason: leg pain Stop: 02/09/20 21:19 Vitamin D (Vitamin D3) 5,000 units PO QAM [facility] Stop: 02/10/20 08:59 Last Admin: 01/13/20 07:39 Dose: 5,000 units Documented by: Zinc Sulfate (Zinc Sulfate) 220 mg PO QDL [facility] Stop: 02/10/20 11:29 Last Admin: 01/13/20 11:32 Dose: 220 mg Documented by: (1) Diabetes mellitus, type II Chronic kidney disease stage: stage 3 (moderate) Diabetes mellitus complication detail: with chronic kidney disease Diabetes mellitus complication status: with kidney complications 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
[2020-01-13 15:33] VITALS: TEMP 97.5; O2SAT 96
--- NOTE | 2020-01-13 16:18 | Discharge Summary ---
Date of Service January 13, 2020 Admission HPI Per Admitting Provider This is an 84-year-old female with past medical history significant for type 2 diabetes, hypothyroidism, hyperlipidemia, history of pancreatic hypertrophy, chronic kidney disease stage III, history of pleural effusions, history of sleep apnea, nocturnal hypoxemia, chronic diastolic congestive heart failure, pulmonary hypertension, venous insufficiency, bilateral atrial enlargement, hypertension, GERD, zinc deficiency, osteoarthritis of multiple joints, senile osteoporosis, hiatal hernia, diabetic polyneuropathy, anemia of chronic kidney disease, iron deficiency anemia, CAD, depression with anxiety, status post mitral valve repair, history of CVA, who lives with her , ambulates with a walker, presents with weakness. The patient says she lost her sense of smell and taste about 1-1/2 years ago and since then her appetite is down and she generally drinks Boost and her weight has been down since then as per the son, but last few days she is getting more weaker, appetite is more down, and not feeling well, but denies any fever, chills. No cough, no nausea, no headache, no runny nose, no sore throat, no abdominal pain. Normal bowel movements. No blood in the stools. She has somewhat more increased frequency of the urine, but no hematuria, no burning micturition. She has some chronic swelling in the legs. In the ER, she was having temp spike and she was tachycardic and elevated white count and lactic acid was 3.4. UA was positive. She has history of UTIs in the past. Blood pressure is okay. Saturating fine on room air. Admission Exam Per Admitting Provider GENERAL: The patient is old and frail, not in acute distress. VITAL SIGNS: Temperature T-max 38.4, pulse 94, respiratory rate 19, blood pressure 161/69, oxygen 94% on room air. HEENT: No pallor, no icterus. Pupils equal, round, and reactive to light. Extraocular muscles intact. NECK: No JVD, no neck masses. CARDIOVASCULAR: S1, S2 heard. Tachycardia. No murmur, no gallop. RESPIRATORY SYSTEM: Normal AP diameter. No accessory muscle use. No wheezing, no crackles. ABDOMEN: Soft, bowel sounds present, nontender. No distention. CENTRAL NERVOUS SYSTEM: Alert and oriented. Speech clear. No facial droop. Extraocular muscles intact. Obeys commands. Moves extremities. EXTREMITIES: Chronic skin changes, chronic mild edema seen, no erythema. Principal Diagnosis Sepsis secondary to UTI Discharge Exam Physical Exam: Sitting on a chair without any acute distress Constitutional: + thin; no acute distress and not ill appearing Eyes: PERRL, conjunctivae normal, anicteric sclerae ENMT: external ear and nose normal, oropharynx normal Neck: trachea midline, no thyromegaly Respiratory: normal respiratory effort; no respiratory distress Auscultation: lungs clear to auscultation bilaterally, no wheezing, rhonchi or crackles noted Cardiovascular: Rate/Rhythm: regular rate and regular rhythm Gastrointestinal (Abdomen): Inspection/Auscultation: abdomen normal to inspection and normal bowel sounds; abdomen not distended Percussion/Palpation: abdomen soft; abdomen nontender Musculoskeletal: No acute arthritis involving any joints, with extremity spontaneously, trace lower extremity edema, and venous stasis dermatitis bilaterally noted Neurologic: moves all extremities; no focal motor deficits Discharge Data Allergies Allergy/AdvReac Type Severity Reaction Status Date / Time No Known Allergies Allergy Verified 01/10/20 18:46 Consultations 01/10/20 19:27 ED Decision to Admit Stat 01/10/20 21:20 Consult Case Management - Discharge Planning Routine Hospital Course (1) Sepsis: Presented to ER with weakness and noted to have fever with tachycardia and increasing white count Has sepsis secondary to UTI and received initial management for sepsis Medically better and will continue current management Urine culture is positive for Klebsiella pneumoniae which is pansensitive, except for nitrofurantoin Received intravenous Zosyn since admission Likely to be discharged on oral antibiotic for 10 days in total of antibiotic, will discharge on cefuroxime for next 7 days Advised to drink plenty of fluids We will get PT and OT evaluation -recommend home PT (2) UTI (urinary tract infection): As above (3) BARBARA (acute kidney injury): Likely secondary to dehydration Creatinine has been improving cautious amount of intravenous fluid Creatinine has been improving and it is 1.48 as of 01/12/2020 (4) Chronic diastolic CHF (congestive heart failure): No signs and or symptoms of fluid overload (5) Diabetes mellitus, type II: Will hold any oral antidiabetic medications SSI (6) CVA (cerebral vascular accident): Continue aspirin Advised increased ambulation Discharge home with home health/home PT Total Time Total Time Spent Total Time Spent (In Minutes): 40 Total Time Includes: Examination of the Patient, Discharge Planning and M edication Reconciliation Discharge Plan Discharge Items Patient Disposition: Home - Home Health Services Reason For Visit: WEAKNESS Discharge Diagnosis: Sepsis secondary to UTI Activity: Per Instructions section Non-emergency contact: Primary Care Provider Call non-emergency contact if: you have any medication questions and your symptoms worsen Follow-up/Referrals: Suzanne Adams MD [Primary Care Provider] - 01/19/20 12:00 pm (01/19/2020 12:00 PM Provider Suzanne Adasm MD Department Internal Medicine [facility] ) Diet: Carb Consistent or DM2 Addtl Attending Provider Instructions: Follow-up with your primary care doctor as scheduled, on January 18. While you were in the hospital, you were not taking your torsemide. Do not take torsemide tomorrow either, restart on Saturday. Discuss further with your primary care doctor. Take antibiotic, cefuroxime, as prescribed to finish your antibiotic course. It is recommended that you use home physical therapy. Pending Studies at Discharge: No Stand-Alone Forms: My [facility] [place], Smoking Cessation Medications and DC Order Prescriptions: New cefuroxime axetil 500 mg tablet 500 mg PO Q12H 7 Days Qty: 14 RF: 0 Continued carvedilol 25 mg Tablet 12.5 mg PO AMHS RF: 0 clopidogrel [Plavix] 75 mg Tablet 75 mg PO QAM RF: 0 tramadol 50 mg Tablet 50 mg PO HS PRN (Reason: leg pain) RF: 0 calcium carbonate [Calcium 600] 600 mg calcium (1,500 mg) Tablet 600 mg PO QDL RF: 0 vitamin A 10,000 unit Capsule 10,000 unit PO QAM RF: 0 magnesium oxide 400 mg Capsule 400 mg PO TID RF: 0 torsemide 20 mg tablet See Rx Instructions .ROUTE .COMPLEX RF: 0 acetaminophen [Tylenol Extra Strength] 500 mg Tablet 500 - 1,000 mg PO Q6H PRN (Reason: Pain) RF: 0 levothyroxine 175 mcg Tablet 175 mcg PO DAILYBB RF: 0 Lantus U-100 Insulin 100 unit/mL Solution 15 unit SUBCUT QAM RF: 0 bupropion HCl [Wellbutrin SR] 100 mg Tablet Sustained-Release 12 Hr 100 mg PO BID RF: 0 pantoprazole 40 mg Tablet,Delayed Release (Dr/Ec) 40 mg PO QAM RF: 0 docusate sodium 100 mg Capsule 100 mg PO AMHS RF: 0 polyethylene glycol 3350 [Miralax] 17 gram/dose Powder 17 g PO DAILY PRN (Reason: Constipation) RF: 0 aripiprazole [Abilify] 2 mg Tablet 1 mg PO QAM RF: 0 zinc sulfate [Zinc-220] 220 (50) mg Capsule 220 mg PO QDL RF: 0 cholecalciferol (vitamin D3) [Vitamin D3] 125 mcg (5,000 unit) Tablet 125 mcg PO QAM RF: 0 Vitron-C 65 mg iron- 125 mg Tablet,Delayed Release (Dr/Ec) 1 tab PO QDL RF: 0 albuterol sulfate 90 mcg/actuation HFA aerosol inhaler 2 puff INHALATION QID RF: 0 semaglutide 1 mg/dose (2 mg/1.5 mL) Pen Injector 1 mg SUBCUT WK RF: 0 Discharge Orders: Discharge Order (Routine); Ordered 01/13/20 Ordered By: Jeremy Garcia/Other Patient Handouts: Managing Type 2 Diabetes Admission Data Admit Date/Time: 01/10/20 20:23 Attending Provider: Jeremy Holden Admit Provider: Hipolito Vaca Primary Care Provider: Suzanne Adams Other Providers: Hipolito Vaca ; Paula Shirley
[2020-01-13 16:22] VITALS: BP 146/65; PULSE 91
== END 2020-01-13 16:50 | disposition home health service (06) | DRG 872 ==
LOC: ED 17:29 → 2W 20:23 → SUATTDRO 20:23 → 2W 20:53

== ENCOUNTER 2020-03-08 18:01 | Inpatient (IN) ==
[2020-03-08] MEDS ORDERED: POLYETHYLENE (MIRALAX) 17 GM PACK PO PRN ×2 (20:31→23:10)
[2020-03-08 21:33] LABS: Basophils # (auto) 0.02 K/uL (0-0.2); Basophils % (auto) 0.3 %; Eosinophils # (auto) 0.15 K/uL (0-0.5); Eosinophils % (auto) 1.9 %; Hematocrit (blood only) 29.2 % (37-47); Hemoglobin 9.7 g/dL (12.0-16.0); Immature Granulocytes # (auto) 0.07 K/uL (0.00-0.02); Immature Granulocytes % (auto) 0.9 %; Lymphocytes # (auto) 0.62 K/uL (1.2-3.4); Lymphocytes % (auto) 7.8 %; Mean Corpuscular Hemoglobin 29.2 pg (25-34); Mean Corpuscular Hgb Conc 33.2 g/dL (32-36); Mean Platelet Volume 8.3 fL (7.4-10.4); Monocytes # (auto) 0.53 K/uL (0.11-0.59); Monocytes % (auto) 6.7 %; Neutrophils # (auto) 6.53 K/uL (1.4-6.5); Neutrophils % (auto) 82.4 %; Platelet Count 281 K/uL (130-400); RDW Coefficient of Variation 15.3 % (11.5-14.5); Red Blood Count 3.32 M/uL (4.2-5.4); White Blood Count 7.92 K/uL (4.8-10.8)
[2020-03-08] MEDS ORDERED: GLUCOSE 10 TABS/TUBE PO PRN (22:00)
[2020-03-08] MEDS ORDERED: CARBOHYDRATES FOR HYPOGLYCEMIA PO PRN (22:00)
[2020-03-08] MEDS ORDERED: GLUCOSE 40% GEL 15 GM TUBE PO PRN (22:00)
[2020-03-08] MEDS ORDERED: DEXTROSE 50% 50 ML SYRINGE IV PRN (22:00)
[2020-03-08] MEDS ORDERED: GLUCAGON FOR INJ 1 MG VIAL IM PRN (22:00)
[2020-03-08 22:01] LABS: Albumin Level 2.6 gm/dl (3.4-5.0); BUN Creatinine Ratio 15.3 (10-20); Blood Urea Nitrogen 49 mg/dl (7-18); Calcium 8.1 mg/dl (8.5-10.1); Carbon Dioxide 24 mmol/L (21-32); Chloride 99 mmol/L (98-107); Est GFR (Non-African American) 12.9; Glucose 137 mg/dl (70-99); Potassium 5.6 mmol/L (3.5-5.1); Sodium 129 mmol/L (136-145)
[2020-03-08] MEDS: CLINDAMYCIN 600 MG in DEXTROSE 5% 50 ML IV SCH (22:10)
[2020-03-08 22:13] LABS: Alanine Aminotransferase 18 U/L (12-78); Albumin Globulin Ratio 0.6 (0.9-2); Alkaline Phosphatase 56 U/L (45-117); Aspartate Aminotransferase 19 U/L (15-37); Bilirubin,Total 0.5 mg/dl (0.2-1); Globulin 4.4 gm/dl (2.5-4.0)
[2020-03-08] MEDS ORDERED: SODIUM POLYSTYRENE 15 GM/60 ML 500ML BOTTLE PO STA (22:17)
[2020-03-08] MEDS ORDERED: SODIUM CHLORIDE 0.9% 1000ML 1,000 ML IV SCH (22:30)
[2020-03-08] MEDS ORDERED: ACETAMINOPHEN 500 MG TAB PO PRN (23:10)
[2020-03-08] MEDS ORDERED: INSULIN HUMAN REGULAR PER UNIT 5 UNITS in SYRINGE 0 ML IV STA (23:12)
[2020-03-08] MEDS ORDERED: DEXTROSE 50% 50 ML SYRINGE IV STA ×2 (23:12→23:14)
[2020-03-08] MEDS ORDERED: CALCIUM GLUCONATE 10% 1,000 MG in SODIUM CHLORIDE 0.9% 50 ML IV STA (23:12)
[2020-03-08 23:13] LABS: INR 1.2 (0.9-1.1); Partial Thromboplastin Ratio 1.1; Partial Thromboplastin Time 31.3 Seconds (21.0-31.0); Prothrombin Time 12.1 Seconds (9.0-12.0)
[2020-03-08] MEDS ORDERED: INSULIN HUMAN REGULAR PER UNIT 10 UNITS in SYRINGE 9.9 ML IV STA (23:23)
--- NOTE | 2020-03-09 01:54 | History and Physical Report ---
DATE OF ADMISSION: 03/08/2020 CHIEF COMPLAINT: BARBARA and hyperkalemia. HISTORY OF PRESENT ILLNESS: This is an 84-year-old female with past medical history significant for type 2 diabetes, hypothyroidism, hyperlipidemia, history of pancreatic hypertrophy, chronic kidney disease stage III , history of pleural effusion, history of sleep apnea, nocturnal hypoxemia, chronic diastolic CHF, pulmonary hypertension, venous insufficiency, bilateral atrial enlargement, hypertension, GERD, zinc deficiency, osteoarthritis of multiple joints, senile osteoporosis, hiatal hernia, diabetic polyneuropathy, anemia of chronic kidney disease, iron deficiency anemia, CAD, depression with anxiety, status post mitral valve repair, history of CVA, who lives with her , ambulates with a walker. She was admitted to [facility] on 03/04/2020 because she slid from the bed and hit her left side of the head and left knee. At that time, CT scan was done which was unremarkable. She was also found to be in BARBARA. Baseline creatinine around 1.9 to 2, At [facility] admission creatinine was 2.4, and also hemoglobin 7.4. Her diuretics were held and she was given gentle fluids and 2 units of PRBCs were given. Left knee x-ray was negative study and CT of the cervical spine and CT of the head were also unremarkable. She was also as outpatient started on Bactrim for bilateral toes infection, which was stopped and she was placed on IV clindamycin [facility]. She seems to be improving and then gentle fluids were stopped and torsemide was reinitiated, but then again today her kidney function got worse to 3.1 and also hyperkalemia with potassium of 5.8. No EKG changes. She was given insulin and Kayexalate and she was transferred here for further care because no nephrology available at that center. The patient is currently resting comfortable and hemodynamically stable. Denies any chest pain, no shortness of breath, no cough, no headache, no blurred vision, no earache, no runny nose, no sore throat. She says she has a history of mini stroke in the past and she sometimes has difficulty swallowing and she likes to be on soft diet. She was nauseous earlier, but no vomiting, no abdominal pain. Normal bowel and bladder movements. She today afternoon she felt weak.Afebrile. ALLERGIES: HARLEY INHIBITORS, ANGIOTENSIN RECEPTOR BLOCKERS. PAST MEDICAL HISTORY: As mentioned above. PAST SURGICAL HISTORY: Stone removal from the bile duct, left heart catheterization, colonoscopy, EGDs, cataract surgery, removal of oviducts, cholecystectomy, repair of radius and ulna fracture, replacement of mitral valve, total hysterectomy. MEDICATIONS: The patient is on Protonix 40 mg p.o. daily. Currently on IV clindamycin 600 mg t.i.d., Plavix 75 mg p.o. daily, Procrit 1000 units shot every 14 days, Demadex initially on 40 mg b.i.d., but seems to be on 60 mg daily, magnesium oxide 400 mg p.o. t.i.d., zinc sulfate 220 mg p.o. daily, hydralazine 50 mg p.o. t.i.d., levothyroxine 200 mcg daily, vitamin A 1000 units p.o. daily, semaglutide 1 mg under skin once daily, Benadryl 25 mg p.o. q. 6 hours p.r.n., Coreg 25 mg p.o. b.i.d., Lantus 15 units subcutaneous daily, Abilify 1 mg p.o. daily, bupropion 100 mg p.o. b.i.d., MiraLax 17 grams p.o. daily p.r.n., vitamin D 125 mcg p.o. daily, Colace 100 mg p.o. daily p.r.n., Lexapro 10 mg p.o. daily, Vitron-C 65/125 mg p.o. daily, albuterol 2 puffs 4 times daily, albuterol nebulization q. 4 hours p.r.n., tramadol 50 mg p.o. at bedtime p.r.n., Tylenol 500 mg p.o. q. 4 hours p.r.n., calcium plus vitamin D 1 tablet daily. FAMILY HISTORY: Significant for mother had AL, father of MVA, brother had leukemia. SOCIAL HISTORY: , lives with her . No smoking, no alcohol, no drug use. REVIEW OF SYSTEMS: As per HPI. Rest of the review of systems negative. PHYSICAL EXAMINATION: GENERAL: The patient is old and frail. The patient is alert and oriented. Not in acute distress. VITAL SIGNS: Currently not available. HEENT: Atraumatic. Pupils equal. No pallor, no icterus. Extraocular muscles intact. NECK: No neck masses. No JVD. CARDIOVASCULAR: S1, S2 heard. Regular rate and rhythm, no murmur, no gallop. RESPIRATORY SYSTEM: Normal AP diameter. No accessory muscle use. No wheezing, no crackles. ABDOMEN: Soft, bowel sounds present, nontender. No distention. CENTRAL NERVOUS SYSTEM: Cranial nerves II-XII grossly intact, nonfocal. EXTREMITIES: Bilateral second toe ulcers seen. No drainage, no erythema seen. LABORATORY DATA: Currently not available. ASSESSMENT AND PLAN: This is an 84-year-old female who was admitted to [facility] on 03/04/2020 with a fall and found to have acute kidney injury and anemia, status post PRBC transfusion. Was transferred because of worsening renal function and hyperkalemia. 1. Acute kidney injury on chronic kidney disease stage III, baseline creatinine around 1.9 to 2, today creatinine was 3.1 at outside hospital. We will follow the repeat labs. Hold her torsemide. Gentle fluids. Consult nephrology in a.m. 2. Hyperkalemia. Outside potassium was 5.8. Received insulin, dextrose, and Kayexalate. We will follow the repeat labs and follow the EKG. 3. Diabetes. Continue with Lantus insulin sliding scale. We will monitor the blood sugars, follow the blood sugars. 4. Hypothyroidism. Continue Synthroid. 5. Gastroesophageal reflux disease, continue PPI. 6. Chronic diastolic congestive heart failure, holding the diuretics. Getting gentle fluids. Will monitor the volume overload. 7. Hypertension. Continue her Coreg and hydralazine. We will monitor the blood pressure. 8. Lower extremity infection of the toes with methicillin-resistant Staphylococcus aureus. There is 1 more day of IV clindamycin.Can be stopped after Mar 09 day dose. 9. Coronary artery disease, mild nonobstructive CAD on catheterization in 2011. Continue beta opal, Plavix, stable. 10. History of mild obstructive sleep apnea and nocturnal hypoxemia. Oxygen at bedtime. 11. Anemia of chronic kidney disease, iron deficiency anemia, on iron supplements. Received 2 units of PRBC at another hospital. We will follow the hemoglobin. 12. Depression and anxiety. Continue Abilify, Wellbutrin. 13. History of cerebrovascular accident, on aspirin and Plavix. 14. History of chronic diastolic heart failure with recurrent pleural effusions requiring multiple thoracenteses. Follow the chest x-ray. Recently at another hospital had echocardiogram which was unremarkable. 15. History of severe mitral regurgitation due to prolapse of P2 segment, status post mitral valve repair with resection of the P2 leaflet and placement of dura and mitral valve annuloplasty. Patent foramen ovale, status post surgical closure at the time of the mitral valve repair. 16. Chronic lymphedema and venous insufficiency of both lower extremities. Currently getting fluids. Holding diuretics. We will monitor for volume overload. 17. History of rheumatic fever as a child. 18. History of prolonged QT. We will follow the EKG and avoid QT prolonging drugs. 19. Deep venous thrombosis prophylaxis. Will be placed on heparin subQ. DISPOSITION: Closely monitor in tele floor. Level 1 full code as the patient is not decided about the code status. PT and OT prior to discharge. Social service to help with discharge planning. Addendum: LAbs came as Cr 3.18.Sodium 129. Potassium 5.6. EKG junctional rhythm. Gave Kayexalate, insulin and dextrose and calcium gluconate. Will continue current fluids. Will follow am labs and ekg.. MTDD
[2020-03-09] MEDS: LEVOTHYROXINE SODIUM 200 MCG TABLET PO SCH (06:06)
--- NOTE | 2020-03-09 06:37 | XRay Report ---
XR chest 1V portable HISTORY: 84 years-old Female congestion? Acute shortness of breath COMPARISON: Chest radiograph 01/10/2020 TECHNIQUE: Portable AP view of the chest FINDINGS: Cardiac silhouette is enlarged, unchanged. Cardiac valvular prosthesis. No pneumothorax. Trace right pleural effusion. Emphysema with chronic interstitial coarsening and chronic left costophrenic angle blunting. Interval development of pulmonary vascular congestion with new interstitial opacities. Music Specialist ryan scarring/atelectasis of the right midlung. Mild left basilar opacities. Degenerative changes of t he shoulders and spine. IMPRESSION: 1. Cardiomegaly with pulmonary vascular congestion and interstitial coarsening suggestive of pulmonar y edema. 2. Left basilar opacities suggest atelectasis versus pneumonitis. 3. Trace right pleural effusion. 4. Emphysema. ACT 112: Negative or not required by law. The above report was generated using voice recognition software. It may contain grammatical, syntax o r spelling errors. Electronically signed by: Jake Cervantes M.D. 03/09/2020 6:36 AM
[2020-03-09] MEDS: CLINDAMYCIN 600 MG in DEXTROSE 5% 50 ML IV SCH ×3 (06:38→21:36)
[2020-03-09] MEDS ORDERED: ALBUTEROL HFA 8 GM INHALER INH SCH (07:00)
[2020-03-09 07:40] LABS: Basophils # (auto) 0.01 K/uL (0-0.2); Basophils % (auto) 0.1 %; Eosinophils # (auto) 0.12 K/uL (0-0.5); Eosinophils % (auto) 1.5 %; Hematocrit (blood only) 28.7 % (37-47); Hemoglobin 9.3 g/dL (12.0-16.0); Immature Granulocytes # (auto) 0.04 K/uL (0.00-0.02); Immature Granulocytes % (auto) 0.5 %; Lymphocytes # (auto) 0.61 K/uL (1.2-3.4); Lymphocytes % (auto) 7.5 %; Mean Corpuscular Hemoglobin 28.6 pg (25-34); Mean Corpuscular Hgb Conc 32.4 g/dL (32-36); Mean Corpuscular Volume 88.3 fL (80-100); Mean Platelet Volume 8.1 fL (7.4-10.4); Monocytes # (auto) 0.57 K/uL (0.11-0.59); Neutrophils # (auto) 6.74 K/uL (1.4-6.5); Neutrophils % (auto) 83.4 %; Platelet Count 270 K/uL (130-400); RDW Coefficient of Variation 15.4 % (11.5-14.5); RDW Standard Deviation 49.6 fL (36.4-46.3); Red Blood Count 3.25 M/uL (4.2-5.4); White Blood Count 8.09 K/uL (4.8-10.8)
[2020-03-09 08:17] LABS: BUN Creatinine Ratio 14.6 (10-20); Blood Urea Nitrogen 50 mg/dl (7-18); Calcium 8.6 mg/dl (8.5-10.1); Carbon Dioxide 25 mmol/L (21-32); Chloride 97 mmol/L (98-107); Creatinine Clr Calc Pharmacy 11.9 ml/min; Est GFR (African American) 13.8; Est GFR (Non-African American) 11.9; Glucose 118 mg/dl (70-99); Magnesium 2.9 mg/dl (1.8-2.4); Potassium 5.4 mmol/L (3.5-5.1); Sodium 129 mmol/L (136-145)
[2020-03-09 08:21] LABS: Creatine Kinase 99 U/L (26-192); Phosphorus 5.9 mg/dl (2.5-4.9); Troponin I < 0.015 ng/ml (0-0.045)
[2020-03-09] MEDS ORDERED: ALBUTEROL HFA 8 GM INHALER INH PRN (08:34)
[2020-03-09] MEDS ORDERED: VITAMIN A 10000 UNIT PO SCH (09:00)
[2020-03-09] MEDS: INSULIN ASPART 100 UNITS/ML 3 ML PEN SC SCH ×4 (09:11→21:01)
[2020-03-09] MEDS: INSULIN GLARGINE SOLOSTAR 100 UNITS/ML 3 ML PEN SQ SCH (09:34)
[2020-03-09] MEDS: HEPARIN SOD 5,000 UNIT/0.5 ML VIAL SQ SCH ×2 (09:34→20:02)
[2020-03-09] MEDS: DOCUSATE SODIUM 100 MG CAP PO SCH ×2 (09:36→20:01)
[2020-03-09] MEDS: ARIPIprazole 1 MG/ML ORAL SOLN 150 ML BTL PO SCH (09:36)
[2020-03-09] MEDS: ESCITALOPRAM OXALATE 10 MG TAB PO SCH (09:37)
[2020-03-09] MEDS: MAGNESIUM OXIDE 400 MG TAB PO SCH ×3 (09:37→20:01)
[2020-03-09] MEDS: buPROPion SR 100 MG TABCR PO SCH ×2 (09:37→20:01)
[2020-03-09] MEDS: PANTOprazole 40 MG TAB PO SCH (09:38)
[2020-03-09] MEDS: CLOPIDOGREL BISULFATE 75 MG TAB PO SCH (09:38)
[2020-03-09] MEDS: hydrALAZINE TAB 50 MG TAB PO SCH ×3 (09:38→20:00)
[2020-03-09] MEDS: CHOLECALCIFEROL 1,000 UNITS 25 MCG TAB PO SCH (09:39)
--- NOTE | 2020-03-09 11:18 | Consultation Report ---
DATE OF CONSULTATION: 03/09/2020 REASON FOR CONSULT: Acute renal failure, hyperkalemia and hyponatremia. HISTORY OF PRESENT ILLNESS: The patient is an 84-year-old female with extensive comorbid disease including type 2 diabetes, chronic kidney disease stage III, history of congestive heart failure, pulmonary hypertension and multiple other medical problems, and initially presented to [facility] after a fall. She was noted to have acute renal failure and high potassium and because of lack of dialysis facility at the outside hospital, she was transferred to this hospital. On admission, potassium is high, sodium is low, creatinine is high. She is in pulmonary edema with high blood pressure. Currently, getting normal saline. ALLERGIES: HARLEY INHIBITOR AND ARBS. PAST MEDICAL HISTORY: Type 2 diabetes, hypothyroidism, hyperlipidemia, history of pancreatic hypertrophy, chronic kidney disease stage III, history of pleural effusion, history of sleep apnea, nocturnal hypoxemia, chronic diastolic CHF, pulmonary hypertension, venous insufficiency, bilateral atrial enlargement, hypertension, GERD, zinc deficiency, hiatal hernia, diabetic polyneuropathy, anemia of chronic kidney disease, history of stroke, coronary artery disease. PAST SURGICAL HISTORY: Stone removal, left heart catheterization, colonoscopy. MEDICATIONS AT HOME Reviewed and is as per the reconciliation list in the H and P. ALLERGIES: List reviewed. FAMILY HISTORY: Negative for renal disease or dialysis. SOCIAL HISTORY: , lives with her . No smoking, no alcohol, no drugs. REVIEW OF SYSTEMS: The patient is a poor historian. She did say she was little short of breath, otherwise denies major symptoms. PHYSICAL EXAMINATION: GENERAL: The patient is old and frail, alert and oriented but cannot give me detailed account of her medical problem. VITAL SIGNS: Includes blood pressure 178/68, pulse rate 87, temperature 36.6, 93% on room air. HEENT: Mucous membranes moist. NECK: Supple. Jugular venous distention is present. CHEST: Bilateral wheezing and crackles bilaterally. CARDIOVASCULAR: S1 and S2, tachycardic, soft systolic murmur heard. ABDOMEN: Soft, nontender. EXTREMITIES: Shows 1+ edema mostly in the left lower extremity. LABORATORY TESTS: Shows hyponatremia with a serum sodium of 129, potassium 5.4, BUN is 50, creatinine is 3.41, phosphorus 5.9, magnesium 2.9. Urine shows positive nitrite, negative blood, negative protein, bacteria is present. Chest x-ray shows pulmonary congestion with pulmonary edema. ASSESSMENT AND PLAN: An 84-year-old female with extensive medical problems, now admitted with acute renal failure, hyperkalemia and hyponatremia. Acute renal failure: First of all, this is not volume depletion and if anything, she has clear cut evidence of pulmonary edema with pulmonary congestion, high blood pressure and hypervolemic hyponatremia with hyperkalemia. Normal saline will be stopped. She needs Lasix 80 mg IV q. 8 hour. Most likely etiology of acute renal failure is acute tubular necrosis in the setting of extensive comorbidities and possible ongoing infection. RECOMMENDATIONS: 1. Stop saline. 2. Lasix 80 IV q. 8 hour. 3. Input and output charting. 4. Labs twice daily. 5. Expect the creatinine to go up as ATN still does not seem to have peaked.
[2020-03-09] MEDS: FUROSEMIDE 80 MG in SYRINGE 0 ML IV SCH ×3 (11:38→21:36)
[2020-03-09] MEDS: ZINC SULFATE 220 MG CAPSULE PO SCH (11:38)
[2020-03-09] MEDS: CALCIUM 600MG + VIT D 400 IU TAB PO SCH (11:39)
[2020-03-09] MEDS: FERROUS FUMARATE/ASCORBIC ACID 65 MG CAPCR PO SCH (11:39)
--- NOTE | 2020-03-09 11:49 | Electrocardiogram Report ---
Test Reason : Blood Pressure : / mmHG Vent. Rate : 075 BPM Atrial Rate : 241 BPM P-R Int : 000 ms QRS Dur : 094 ms QT Int : 432 ms P-R-T Axes : 000 043 050 degrees QTc Int : 482 ms Sinus rhythm Confirmed by Fredi Rivera ([id number]) on 03/09/2020 11:48:55 AM Referred By: Hipolito Vaca Confirmed By:Reinaldo Rivera
--- NOTE | 2020-03-09 11:51 | Electrocardiogram Report ---
Test Reason : Blood Pressure : / mmHG Vent. Rate : 086 BPM Atrial Rate : 000 BPM P-R Int : 000 ms QRS Dur : 080 ms QT Int : 400 ms P-R-T Axes : 000 106 018 degrees QTc Int : 478 ms Poor data quality, interpretation may be adversely affected Likely sinus rhythm Rightward axis Abnormal ECG When compared with ECG of 08-MAR-2020 22:34, (unconfirmed) QRS axis Shifted right T wave inversion now evident in Inferior leads Confirmed by Fredi Rivera ([id number]) on 03/09/2020 11:51:39 AM Referred By: Hipolito Vaca Confirmed By:Reinaldo Rivera
[2020-03-09] MEDS: ACETAMINOPHEN 325 MG TAB PO PRN (17:49)
--- NOTE | 2020-03-09 18:23 | Hospitalist Progress Note ---
Date of Service March 09, 2020 Assessment & Plan (1) BARBARA (acute kidney injury): ASSESSMENT AND PLAN: This is an 84-year-old female who was admitted to [facility] on 03/04/2020 with a fall and found to have acute kidney injury and anemia, status post PRBC transfusion. Was transferred because of worsening renal function and hyperkalemia. 1. Acute kidney injury on chronic kidney disease stage III likely from ATN - baseline creatinine around 1.9 to 2 - crea 3.4 Rip Tailer consulted Lasix started 2. Hyperkalemia. - potassium was 5.8. Received insulin, dextrose, and Kayexalate. - K now 5.4 Lasix ordered 3. Diabetes. Continue with Lantus insulin sliding scale. 4. Hypothyroidism. Continue Synthroid. 5. Gastroesophageal reflux disease, continue PPI. 6. Chronic diastolic congestive heart failure (+) Acute Exacerbation - Lasix ordered 7. Hypertension. Continue her Coreg and hydralazine. 8. Lower extremity infection of the toes with methicillin-resistant Staphylococcus aureus. There is 1 more day of IV clindamycin.Can be stopped after Mar 09 day dose. - Wound care consulted 9. Coronary artery disease, mild nonobstructive CAD on catheterization in 2011. Continue beta opal, Plavix, stable. 10. History of mild obstructive sleep apnea and nocturnal hypoxemia. Oxygen at bedtime. 11. Anemia of chronic kidney disease, iron deficiency anemia, on iron supplements. Received 2 units of PRBC at another hospital. - Hg 9.7 --> 9.3 12. Depression and anxiety. Continue Abilify, Wellbutrin. 13. History of cerebrovascular accident, on aspirin and Plavix. 14. History of chronic diastolic heart failure with recurrent pleural effusions requiring multiple thoracenteses. - CXR: 1. Cardiomegaly with pulmonary vascular congestion and interstitial coarsening suggestive of pulmonary edema. 2. Left basilar opacities suggest atelectasis versus pneumonitis. 3. Trace right pleural effusion. 4. Emphysema. - management per above 15. History of severe mitral regurgitation due to prolapse of P2 segment, status post mitral valve repair with resection of the P2 leaflet and placement of dura and mitral valve annuloplasty. Patent foramen ovale, status post surgical closure at the time of the mitral valve repair. 16. Chronic lymphedema and venous insufficiency of both lower extremities. 17. History of rheumatic fever as a child. 18. History of prolonged QT. 480 --> 478 19. Deep venous thrombosis prophylaxis. heparin subQ Disposition pending management of acute renal failure, etc. in progress PT/OT eval ordered Admission and Anticipated Discharge Date Admission Date: March 08, 2020 Subjective ff up for acute renal failure, anemia, etc seen resting in bedside chair, not in distress, comfortable states she feels anxious about the condition of her kidneys patient reassured reports having minimal urine output denies shortness of breath, chest pain, palpitations, nausea/vomiting denies pain on her lower extremities or foot no other symptoms Review of Systems Review of Systems: All systems reviewed & are unremarkable except as noted in Subjective Physical Exam Physical Exam: General- oriented x 3, not in distress, speaks in sentences with no effort or accessory muscle use Head- atraumatic Eyes- PERRL, EOMI, anicteric ENT- oropharynx clear Neck- supple, no JVD, no adenopathy, no thyromegaly; carotids +2/2, no bruits appreciated Lungs- (+) mild rales at the bases, no wheezing Heart- normal rate, regular rhythm; no murmur, no gallop, no rub appreciated Abdomen- normal bowel sounds, nondistended, soft, nontender, no masses or hepatosplenomegaly Extremities- mild lower leg edema, no calf tenderness; peripheral pulses intact (+) healing wound on the tip of the 2nd toes- bilateral Neuro- alert, oriented x 3; CN 2-12 grossly intact; motor 5/5 bilaterally;sensation 100% on all extremities; no other gross focal neurologic deficits Skin- warm & dry Results & Data Results & Data ([facility]) Vital Signs (Past 12 Hours) Vital Signs Temp Pulse Pulse Resp BP BP Pulse Ox 03/09/20 13:17 78 03/09/20 11:10 36.6 C 81 18 188/75 H 189/87 H 93 03/09/20 08:02 87 16 93 03/09/20 07:31 36.6 C 78 18 178/68 H 93 Laboratory Results Laboratory Results - last 24 hr 03/08/20 03/08/20 03/08/20 21:20 21:20 21:57 WBC 7.92 RBC 3.32 L Hgb 9.7 L Hct 29.2 L MCV 88.0 MCH 29.2 MCHC 33.2 RDW Std Deviation 49.0 H RDW Coeff of Rosalba 15.3 H Plt Count 281 MPV 8.3 Immature Gran % (Auto) 0.9 Neut % (Auto) 82.4 Lymph % (Auto) 7.8 Stevens % (Auto) 6.7 Eos % (Auto) 1.9 Baso % (Auto) 0.3 Neut # (Auto) 6.53 H Lymph # (Auto) 0.62 L Stevens # (Auto) 0.53 Eos # (Auto) 0.15 Baso # (Auto) 0.02 Immature Gran # (Auto) 0.07 H PT INR APTT PTT Ratio Sodium 129 L Potassium 5.6 H Chloride 99 Carbon Dioxide 24 Anion Gap 6.0 BUN 49 H Creatinine 3.18 H Est Cr Clr Drug Dosing Not Reportable Est GFR ( Amer) 15.0 Est GFR (Non-Af Amer) 12.9 BUN/Creatinine Ratio 15.3 Glucose 137 H POC Glucose 147 H Calcium 8.1 L Phosphorus Magnesium Total Bilirubin 0.5 AST 19 ALT 18 Alkaline Phosphatase 56 Total Creatine Kinase Troponin I Total Protein 7.0 Albumin 2.6 L Globulin 4.4 H Albumin/Globulin Ratio 0.6 L 03/08/20 03/09/20 03/09/20 22:21 07:29 07:29 WBC 8.09 RBC 3.25 L Hgb 9.3 L Hct 28.7 L MCV 88.3 MCH 28.6 MCHC 32.4 RDW Std Deviation 49.6 H RDW Coeff of Rosalba 15.4 H Plt Count 270 MPV 8.1 Immature Gran % (Auto) 0.5 Neut % (Auto) 83.4 Lymph % (Auto) 7.5 Stevens % (Auto) 7.0 Eos % (Auto) 1.5 Baso % (Auto) 0.1 Neut # (Auto) 6.74 H Lymph # (Auto) 0.61 L Stevens # (Auto) 0.57 Eos # (Auto) 0.12 Baso # (Auto) 0.01 Immature Gran # (Auto) 0.04 H PT 12.1 H INR 1.2 H APTT 31.3 H PTT Ratio 1.1 Sodium 129 L Potassium 5.4 H Chloride 97 L Carbon Dioxide 25 Anion Gap 6.0 BUN 50 H Creatinine 3.41 H Est Cr Clr Drug Dosing 11.9 Est GFR ( Amer) 13.8 Est GFR (Non-Af Amer) 11.9 BUN/Creatinine Ratio 14.6 Glucose 118 H POC Glucose Calcium 8.6 Phosphorus 5.9 H Magnesium 2.9 H Total Bilirubin AST ALT Alkaline Phosphatase Total Creatine Kinase 99 Troponin I < 0.015 Total Protein Albumin Globulin Albumin/Globulin Ratio 03/09/20 03/09/20 03/09/20 07:30 11:17 16:40 WBC RBC Hgb Hct MCV MCH MCHC RDW Std Deviation RDW Coeff of Rosalba Plt Count MPV Immature Gran % (Auto) Neut % (Auto) Lymph % (Auto) Stevens % (Auto) Eos % (Auto) Baso % (Auto) Neut # (Auto) Lymph # (Auto) Stevens # (Auto) Eos # (Auto) Baso # (Auto) Immature Gran # (Auto) PT INR APTT PTT Ratio Sodium Potassium Chloride Carbon Dioxide Anion Gap BUN Creatinine Est Cr Clr Drug Dosing Est GFR ( Amer) Est GFR (Non-Af Amer) BUN/Creatinine Ratio Glucose POC Glucose 129 H 163 H 140 H Calcium Phosphorus Magnesium Total Bilirubin AST ALT Alkaline Phosphatase Total Creatine Kinase Troponin I Total Protein Albumin Globulin Albumin/Globulin Ratio
[2020-03-10] MEDS ORDERED: carvediloL 12.5 MG TAB PO SCH (04:55)
[2020-03-10] MEDS ORDERED: ALBUT/IPRATROP 3MG/0.5MG NEB 3 ML VIAL NEB STA (05:22)
[2020-03-10] MEDS: LEVOTHYROXINE SODIUM 200 MCG TABLET PO SCH (05:50)
[2020-03-10] MEDS ORDERED: ALBUMIN 25% 50 ML with FUROSEMIDE 80 MG IV ONE (06:15)
[2020-03-10] MEDS: carvediloL 6.25 MG TAB PO SCH ×2 (06:43→20:35)
[2020-03-10 07:24] LABS: Basophils # (auto) 0.02 K/uL (0-0.2); Basophils % (auto) 0.2 %; Hematocrit (blood only) 27.7 % (37-47); Hemoglobin 8.9 g/dL (12.0-16.0); Immature Granulocytes # (auto) 0.05 K/uL (0.00-0.02); Immature Granulocytes % (auto) 0.5 %; Lymphocytes # (auto) 0.56 K/uL (1.2-3.4); Lymphocytes % (auto) 5.7 %; Mean Corpuscular Hemoglobin 28.2 pg (25-34); Mean Corpuscular Hgb Conc 32.1 g/dL (32-36); Mean Corpuscular Volume 87.7 fL (80-100); Mean Platelet Volume 8.1 fL (7.4-10.4); Monocytes # (auto) 0.88 K/uL (0.11-0.59); Neutrophils # (auto) 8.17 K/uL (1.4-6.5); Neutrophils % (auto) 83.6 %; Platelet Count 284 K/uL (130-400); RDW Coefficient of Variation 15.5 % (11.5-14.5); RDW Standard Deviation 49.6 fL (36.4-46.3); Red Blood Count 3.16 M/uL (4.2-5.4); White Blood Count 9.78 K/uL (4.8-10.8)
[2020-03-10 07:32] LABS: Base Excess ABG -1.3 mEq/L (-9-1.8); HCO3 ABG 23 mmol/L (19-24); Oxygen Saturation ABG 96.4 % (90-95); PCO2 ABG 34 mmHg (35-46); PO2 ABG 91 mmHg (80-95); pH ABG 7.44 (7.35-7.45)
[2020-03-10 07:33] LABS: Allen Test Pos (Pos)
[2020-03-10] MEDS: CLINDAMYCIN 600 MG in DEXTROSE 5% 50 ML IV SCH ×2 (07:50→14:12)
[2020-03-10] MEDS: INSULIN ASPART 100 UNITS/ML 3 ML PEN SC SCH ×4 (07:51→20:37)
[2020-03-10] MEDS: ARIPIprazole 1 MG/ML ORAL SOLN 150 ML BTL PO SCH (07:52)
[2020-03-10] MEDS: CLOPIDOGREL BISULFATE 75 MG TAB PO SCH (07:52)
[2020-03-10] MEDS: ESCITALOPRAM OXALATE 10 MG TAB PO SCH (07:52)
[2020-03-10] MEDS: PANTOprazole 40 MG TAB PO SCH (07:52)
[2020-03-10] MEDS: buPROPion SR 100 MG TABCR PO SCH ×2 (07:53→20:36)
[2020-03-10] MEDS: MAGNESIUM OXIDE 400 MG TAB PO SCH ×3 (07:53→20:36)
[2020-03-10] MEDS: HEPARIN SOD 5,000 UNIT/0.5 ML VIAL SQ SCH ×2 (07:53→20:35)
[2020-03-10] MEDS: hydrALAZINE TAB 50 MG TAB PO SCH ×3 (07:53→20:36)
[2020-03-10] MEDS: CHOLECALCIFEROL 1,000 UNITS 25 MCG TAB PO SCH (07:53)
[2020-03-10 07:54] LABS: BUN Creatinine Ratio 15.5 (10-20); Calcium 8.5 mg/dl (8.5-10.1); Creatinine Clr Calc Pharmacy 11.8 ml/min; Est GFR (African American) 13.4; Est GFR (Non-African American) 11.6; Magnesium 2.9 mg/dl (1.8-2.4); Potassium 4.9 mmol/L (3.5-5.1)
[2020-03-10] MEDS: DOCUSATE SODIUM 100 MG CAP PO SCH ×2 (07:54→20:34)
[2020-03-10] MEDS: INSULIN GLARGINE SOLOSTAR 100 UNITS/ML 3 ML PEN SQ SCH ×2 (07:54→08:00)
--- NOTE | 2020-03-10 07:56 | XRay Report ---
XR chest 1V portable CLINICAL HISTORY: Hypoxia COMPARISON STUDY: 03/08/2020 FINDINGS: The heart remains enlarged. Valvular prosthesis is again visualized. There are small pleura l effusions. There are persistent bilateral airspace opacities (atelectasis versus pneumonitis). Ther e is mild pulmonary vascular congestion[ IMPRESSION: Cardiomegaly and mild pulmonary vascular congestion. Persistent nonspecific bilateral pul monary airspace opacities ACT 112: Negative or not required by law. Electronically signed by: Juan Miguel Falk M.D. 03/10/2020 7:55 AM
[2020-03-10] MEDS ORDERED: metOLazone 5 MG TABLET PO ONE (10:30)
--- NOTE | 2020-03-10 10:49 | Progress Notes ---
DATE: 03/10/2020 SUBJECTIVE: The patient continues to be in about the same situation. Despite high dose IV Lasix, she really has not urinated much, urine output was only 650 mL yesterday. She continues to be wheezing and short of breath and has edema. She has a Jewell catheter at this time. PHYSICAL EXAMINATION: VITAL SIGNS: Blood pressure is high at 175/69, pulse rate 83, temperature 36.7, 96% on 2 liter nasal cannula. HEENT: Mucous membranes moist. NECK: Jugular venous distention is present. CHEST: Bilaterally decreased crackles and wheezing. CARDIOVASCULAR: S1, S2, regular. Soft systolic murmur heard. ABDOMEN: Soft, nontender. EXTREMITIES: Shows edema 1+ more in left. LABORATORY TESTS: Reviewed in detail. Sodium is still low at 127, potassium 4.9, chloride 96, BUN 54, creatinine 3.49. White count is 9,000, hemoglobin 8.9, platelet count 284. ASSESSMENT AND PLAN: An 84-year-old female admitted with acute renal failure, hyponatremia, hyperkalemia. RECOMMENDATIONS: Acute renal failure. Most likely secondary to acute tubular necrosis, but she does have evidence of congestive heart failure/pulmonary edema. Recommend: 1. Increase Lasix to 100 mg IV q. 8 hour. 2. Metolazone 5 mg 1 dose now. 3. Echocardiogram. 4. Urine culture to evaluate for her UTI. 5. Check proBNP, BMP twice daily.
[2020-03-10] MEDS: FERROUS FUMARATE/ASCORBIC ACID 65 MG CAPCR PO SCH (11:22)
[2020-03-10] MEDS: CALCIUM 600MG + VIT D 400 IU TAB PO SCH (11:22)
[2020-03-10] MEDS: ZINC SULFATE 220 MG CAPSULE PO SCH (11:22)
[2020-03-10] MEDS ORDERED: amLODIPine BESYLATE 5 MG TAB PO ONE (12:45)
[2020-03-10] MEDS: FUROSEMIDE 100 MG in SYRINGE 0 ML IV SCH ×2 (13:04→22:04)
[2020-03-10] MEDS ORDERED: FUROSEMIDE 80 MG in SYRINGE 0 ML IV SCH (14:00)
[2020-03-10] MEDS: hydrALAZINE HCL 20 MG/ML VIAL IV PRN (15:47)
--- NOTE | 2020-03-10 20:21 | Hospitalist Progress Note ---
Date of Service March 10, 2020 Assessment & Plan (1) BARBARA (acute kidney injury): ASSESSMENT AND PLAN: This is an 84-year-old female who was admitted to [facility] on 03/04/2020 with a fall and found to have acute kidney injury and anemia, status post PRBC transfusion. Was transferred because of worsening renal function and hyperkalemia. 1. Acute kidney injury on chronic kidney disease stage III likely from ATN - baseline creatinine around 1.9 to 2 - crea still at 3.4 Car Deliverer consulted Low urine output Lasix IV increased, 100 mg IV every 8 Echocardiogram ordered 2. Hyperkalemia - potassium was 5.8. Received insulin, dextrose, and Kayexalate. - K now 4.9 Lasix ordered 3. Diabetes. Continue with Lantus insulin sliding scale. 4. Hypothyroidism. Continue Synthroid. 5. Gastroesophageal reflux disease, continue PPI. 6. Chronic diastolic congestive heart failure (+) Acute Exacerbation - Lasix ordered 7. Hypertension. Blood pressure elevated Amlodipine 5 mg ordered Hydralazine IV PRN ordered Continue her Coreg and hydralazine 50 mg 3 times daily Monitor 8. Lower extremity infection of the toes with methicillin-resistant Staphylococcus aureus -Completed course of IV clindamycin - Wound care consulted 9. Coronary artery disease, mild nonobstructive CAD on catheterization in 2011. Continue beta opal, Plavix, stable. 10. History of mild obstructive sleep apnea and nocturnal hypoxemia. Oxygen at bedtime. 11. Anemia of chronic kidney disease, iron deficiency anemia, on iron supplements. Received 2 units of PRBC at another hospital. - Hg 9.7 --> 9.3 12. Depression and anxiety. Continue Abilify, Wellbutrin. 13. History of cerebrovascular accident -- on aspirin and Plavix. 14. History of chronic diastolic heart failure with recurrent pleural effusions requiring multiple thoracenteses. - CXR: 1. Cardiomegaly with pulmonary vascular congestion and interstitial coarsening suggestive of pulmonary edema. 2. Left basilar opacities suggest atelectasis versus pneumonitis. 3. Trace right pleural effusion. 4. Emphysema. - management per above 15. History of severe mitral regurgitation due to prolapse of P2 segment, status post mitral valve repair with resection of the P2 leaflet and placement of dura and mitral valve annuloplasty. Patent foramen ovale, status post surgical closure at the time of the mitral valve repair. 16. Chronic lymphedema and venous insufficiency of both lower extremities. 17. History of rheumatic fever as a child. 18. History of prolonged QT. 480 --> 478 19. Deep venous thrombosis prophylaxis. heparin subQ Disposition pending management of acute renal failure, etc. in progress PT/OT eval ordered Admission and Anticipated Discharge Date Admission Date: March 08, 2020 Subjective Follow-up for acute renal failure, anemia Seen sitting up at bedside chair, comfortable, not in distress Somewhat anxious, reassured Had dyspnea earlier in the morning Improved Denies chest pain, palpitations, dizziness No other symptoms Review of Systems Review of Systems: All systems reviewed & are unremarkable except as noted in Subjective Physical Exam Physical Exam: General- oriented x 3, not in distress, speaks in sentences with no effort or accessory muscle use Eyes- anicteric Neck- no JVD Lungs-mild crackles bilateral bases, no wheezing Heart- normal rate, regular rhythm; no murmurs Abdomen- normal bowel sounds, nondistended, soft, nontender Extremities-mild lower leg edema, no calf tenderness Neuro- alert, oriented x 3; no gross focal neurologic deficits Skin- warm & dry Results & Data Results & Data ([facility]) Vital Signs (Past 12 Hours) Vital Signs Temp Pulse Pulse Resp BP BP Pulse Ox 03/10/20 19:47 36.5 C 82 22 165/67 H 95 03/10/20 17:08 162/86 H 03/10/20 16:37 84 03/10/20 12:19 36.5 C 92 H 20 180/66 H 94 Laboratory Results Laboratory Results - last 24 hr 03/09/20 03/10/20 03/10/20 20:33 07:14 07:14 WBC 9.78 RBC 3.16 L Hgb 8.9 L Hct 27.7 L MCV 87.7 MCH 28.2 MCHC 32.1 RDW Std Deviation 49.6 H RDW Coeff of Rosalba 15.5 H Plt Count 284 MPV 8.1 Immature Gran % (Auto) 0.5 Neut % (Auto) 83.6 Lymph % (Auto) 5.7 Major % (Auto) 9.0 Eos % (Auto) 1.0 Baso % (Auto) 0.2 Neut # (Auto) 8.17 H Lymph # (Auto) 0.56 L Major # (Auto) 0.88 H Eos # (Auto) 0.10 Baso # (Auto) 0.02 Immature Gran # (Auto) 0.05 H ABG pH ABG pCO2 ABG pO2 ABG HCO3 ABG O2 Saturation ABG Base Excess Harpal Test Barometric Pressure Oxygen Given Sodium 127 L Potassium 4.9 Chloride 96 L Carbon Dioxide 23 Anion Gap 8.0 BUN 54 H Creatinine 3.49 H Est Cr Clr Drug Dosing 11.8 Est GFR ( Amer) 13.4 Est GFR (Non-Af Amer) 11.6 BUN/Creatinine Ratio 15.5 Glucose 124 H POC Glucose 193 H Calcium 8.5 Magnesium 2.9 H 03/10/20 03/10/20 03/10/20 07:14 07:20 11:38 WBC RBC Hgb Hct MCV MCH MCHC RDW Std Deviation RDW Coeff of Rosalba Plt Count MPV Immature Gran % (Auto) Neut % (Auto) Lymph % (Auto) Major % (Auto) Eos % (Auto) Baso % (Auto) Neut # (Auto) Lymph # (Auto) Major # (Auto) Eos # (Auto) Baso # (Auto) Immature Gran # (Auto) ABG pH 7.44 ABG pCO2 34 L ABG pO2 91 ABG HCO3 23 ABG O2 Saturation 96.4 H ABG Base Excess -1.3 Harpal Test Pos Barometric Pressure 732.8 Oxygen Given 2L Sodium Potassium Chloride Carbon Dioxide Anion Gap BUN Creatinine Est Cr Clr Drug Dosing Est GFR ( Amer) Est GFR (Non-Af Amer) BUN/Creatinine Ratio Glucose POC Glucose 137 H 121 H Calcium Magnesium 03/10/20 16:02 WBC RBC Hgb Hct MCV MCH MCHC RDW Std Deviation RDW Coeff of Rosalba Plt Count MPV Immature Gran % (Auto) Neut % (Auto) Lymph % (Auto) Major % (Auto) Eos % (Auto) Baso % (Auto) Neut # (Auto) Lymph # (Auto) Major # (Auto) Eos # (Auto) Baso # (Auto) Immature Gran # (Auto) ABG pH ABG pCO2 ABG pO2 ABG HCO3 ABG O2 Saturation ABG Base Excess Harpal Test Barometric Pressure Oxygen Given Sodium Potassium Chloride Carbon Dioxide Anion Gap BUN Creatinine Est Cr Clr Drug Dosing Est GFR ( Amer) Est GFR (Non-Af Amer) BUN/Creatinine Ratio Glucose POC Glucose 85 Calcium Magnesium
[2020-03-11] MEDS: ALBUT/IPRATROP 3MG/0.5MG NEB 3 ML VIAL NEB PRN (04:53)
[2020-03-11] MEDS: carvediloL 12.5 MG TAB PO SCH ×2 (06:22→20:07)
[2020-03-11] MEDS: LEVOTHYROXINE SODIUM 200 MCG TABLET PO SCH (06:22)
[2020-03-11] MEDS: FUROSEMIDE 100 MG in SYRINGE 0 ML IV SCH ×2 (06:22→21:04)
[2020-03-11 06:33] LABS: Hematocrit (blood only) 27.5 % (37-47); Mean Corpuscular Hemoglobin 28.8 pg (25-34); Mean Corpuscular Hgb Conc 32.7 g/dL (32-36); Mean Corpuscular Volume 88.1 fL (80-100); Mean Platelet Volume 8.5 fL (7.4-10.4); Platelet Count 307 K/uL (130-400); RDW Coefficient of Variation 15.7 % (11.5-14.5); RDW Standard Deviation 49.7 fL (36.4-46.3); Red Blood Count 3.12 M/uL (4.2-5.4); White Blood Count 8.11 K/uL (4.8-10.8)
[2020-03-11] MEDS: INSULIN ASPART 100 UNITS/ML 3 ML PEN SC SCH ×4 (07:39→20:08)
[2020-03-11] MEDS: PANTOprazole 40 MG TAB PO SCH (08:05)
[2020-03-11] MEDS: ARIPIprazole 1 MG/ML ORAL SOLN 150 ML BTL PO SCH (08:05)
[2020-03-11] MEDS: CHOLECALCIFEROL 1,000 UNITS 25 MCG TAB PO SCH (08:05)
[2020-03-11] MEDS: MAGNESIUM OXIDE 400 MG TAB PO SCH ×3 (08:06→20:06)
[2020-03-11] MEDS: buPROPion SR 100 MG TABCR PO SCH ×2 (08:06→20:07)
[2020-03-11] MEDS: hydrALAZINE TAB 50 MG TAB PO SCH ×3 (08:06→20:08)
[2020-03-11] MEDS: CLOPIDOGREL BISULFATE 75 MG TAB PO SCH (08:06)
[2020-03-11] MEDS: ESCITALOPRAM OXALATE 10 MG TAB PO SCH (08:06)
[2020-03-11] MEDS: DOCUSATE SODIUM 100 MG CAP PO SCH ×2 (08:06→20:08)
[2020-03-11] MEDS: INSULIN GLARGINE SOLOSTAR 100 UNITS/ML 3 ML PEN SQ SCH (08:07)
[2020-03-11] MEDS: HEPARIN SOD 5,000 UNIT/0.5 ML VIAL SQ SCH ×2 (08:07→20:06)
[2020-03-11 11:24] LABS: BUN Creatinine Ratio 14.8 (10-20); Calcium 8.3 mg/dl (8.5-10.1); Creatinine Clr Calc Pharmacy 10.6 ml/min; Est GFR (African American) 11.8; Est GFR (Non-African American) 10.1; Potassium 4.8 mmol/L (3.5-5.1)
[2020-03-11] MEDS ORDERED: metOLazone 5 MG TABLET PO ONE (11:35)
[2020-03-11] MEDS: CALCIUM 600MG + VIT D 400 IU TAB PO SCH (11:41)
[2020-03-11] MEDS: FERROUS FUMARATE/ASCORBIC ACID 65 MG CAPCR PO SCH (11:41)
[2020-03-11] MEDS: ZINC SULFATE 220 MG CAPSULE PO SCH (11:41)
--- NOTE | 2020-03-11 12:33 | Progress Notes ---
DATE: 03/11/2020 SUBJECTIVE: Overnight, she did make somewhat more urine about 1000 mL with the highest possible Lasix dose with metolazone. She feels slightly better from breathing standpoint, but continues to have wheezing and shortness of breath. She has a Jewell catheter at this time. PHYSICAL EXAMINATION: VITAL SIGNS: Blood pressure is still high at 166/60, 74 per minute pulse, 97% on room air. CHEST: Bilateral decreased breath sounds with crackles and rhonchi. CARDIOVASCULAR: S1, S2, regular. Soft systolic murmur heard. ABDOMEN: Soft, nontender. EXTREMITIES: Shows 1+ edema in the left and trace edema at the right. LABORATORY TESTS: Shows sodium 129, potassium 4.8. Creatinine is slightly elevated from yesterday to 3.89; however, it really has not changed a whole lot since she has been here for the last 4 days. Hemoglobin 9.0, WBC count 8000, platelet count 307. BNP is elevated at 11,441. Echocardiogram done yesterday showed significant diastolic dysfunction with severely dilated left atrium, but the left ventricular ejection fraction was reported normal. ASSESSMENT AND PLAN: An 84-year-old female admitted with acute renal failure, hyponatremia and hyperkalemia. RECOMMENDATIONS: Acute renal failure, this is most likely secondary to acute tubular necrosis rather than volume depletion. She has evidence of congestive heart failure/pulmonary edema based on her presentation x-ray finding, elevated BNP. It appears to be predominantly diastolic in nature, most likely because of the acute tubular necrosis. Recommendations for now lower the Lasix to 100 mg IV q. 12 hours with metolazone 5 mg 1 more dose today. Pending urine culture, antibiotic if positive. I would like to repeat the UA. MTDD
[2020-03-11 15:42] LABS: Appearance Urine Clear (Clear); Bacteria Urine Automated Negative (Negative); Bilirubin Urine Negative (Negative); Blood Urine 3+ (Negative); Color Urine Orange; Epithelial Cell Urine Auto >30 /lpf (0-5); Glucose Urine UA Negative (Negative); Ketones Urine Negative (Negative); Leukocyte Esterase Urine Trace (Negative); Nitrite Urine Negative (Negative); Protein Urine 3+ (Negative); RBC Urine Automated >30 /hpf (0-4); Specific Gravity Urine 1.012 (1.000-1.030); Urobilinogen Urine Negative (Negative)
[2020-03-11] MEDS: hydrALAZINE HCL 20 MG/ML VIAL IV PRN (17:41)
[2020-03-11] MEDS: amLODIPine BESYLATE 5 MG TAB PO SCH (21:04)
--- NOTE | 2020-03-11 21:20 | Hospitalist Progress Note ---
Date of Service Delayed entry Date of service noted below March 11, 2020 Assessment & Plan (1) BARBARA (acute kidney injury): ASSESSMENT AND PLAN: This is an 84-year-old female who was admitted to [facility] on 03/04/2020 with a fall and found to have acute kidney injury and anemia, status post PRBC transfusion. Was transferred because of worsening renal function and hyperkalemia. 1. Acute kidney injury on chronic kidney disease stage III likely from ATN - baseline creatinine around 1.9 to 2 - crea still trending upwards Low urine output Continue Lasix IV in light of volume overload, Echocardiogram: Preserved ejection fraction 2. Hyperkalemia - potassium was 5.8. Received insulin, dextrose, and Kayexalate. -Resolved Lasix ordered 3. Diabetes. Continue with Lantus insulin sliding scale. 4. Hypothyroidism. Continue Synthroid. 5. Gastroesophageal reflux disease, continue PPI. 6. Chronic diastolic congestive heart failure (+) Acute Exacerbation - Lasix ordered 7. Hypertension. Blood pressure elevated Amlodipine 5 mg p.o. daily started Hydralazine IV PRN ordered Continue her Coreg and hydralazine 50 mg 3 times daily Monitor 8. Lower extremity infection of the toes with methicillin-resistant Staphylococcus aureus -Completed course of IV clindamycin - Wound care consulted 9. Coronary artery disease, mild nonobstructive CAD on catheterization in 2011. Continue beta opal, Plavix, stable. 10. History of mild obstructive sleep apnea and nocturnal hypoxemia. Oxygen at bedtime. 11. Anemia of chronic kidney disease, iron deficiency anemia, on iron supplements. Received 2 units of PRBC at another hospital. - Hg 9.7 --> 9.3 12. Depression and anxiety. Continue Abilify, Wellbutrin. 13. History of cerebrovascular accident -- on aspirin and Plavix. 14. History of chronic diastolic heart failure with recurrent pleural effusions requiring multiple thoracenteses. - CXR: 1. Cardiomegaly with pulmonary vascular congestion and interstitial coarsening suggestive of pulmonary edema. 2. Left basilar opacities suggest atelectasis versus pneumonitis. 3. Trace right pleural effusion. 4. Emphysema. - management per above 15. History of severe mitral regurgitation due to prolapse of P2 segment, status post mitral valve repair with resection of the P2 leaflet and placement of dura and mitral valve annuloplasty. Patent foramen ovale, status post surgical closure at the time of the mitral valve repair. 16. Chronic lymphedema and venous insufficiency of both lower extremities. 17. History of rheumatic fever as a child. 18. History of prolonged QT. 480 --> 478 19. Deep venous thrombosis prophylaxis. heparin subQ Disposition pending management of acute renal failure, etc. in progress PT/OT eval ordered Admission and Anticipated Discharge Date Admission Date: March 08, 2020 Subjective Follow-up for acute renal failure Seen sitting up in bedside chair, not in distress Having shortness of breath in the morning, now resolved Denies abdominal pain, nausea No fever or chills No leg pain No other symptoms Review of Systems Review of Systems: All systems reviewed & are unremarkable except as noted in Subjective Physical Exam Physical Exam: General- oriented x 3, not in distress, speaks in sentences with no effort or accessory muscle use Eyes- anicteric Neck- no JVD Lungs-positive mild crackles at the bases, no wheezing, Heart- normal rate, regular rhythm; no murmurs Abdomen- normal bowel sounds, nondistended, soft, nontender Extremities-grade 1 lower leg edema, no calf tenderness Neuro- alert, oriented x 3; no gross focal neurologic deficits Skin- warm & dry Results & Data Results & Data ([facility]) Vital Signs (Past 12 Hours) Vital Signs Temp Pulse Resp BP BP Pulse Ox 03/11/20 20:52 36.3 C L 77 16 164/66 H 94 03/11/20 17:30 36.8 C 79 20 179/78 H 98 03/11/20 11:22 36.6 C 74 22 166/60 H Laboratory Results All noted and reviewed
[2020-03-12] MEDS: hydrALAZINE HCL 20 MG/ML VIAL IV PRN (03:44)
[2020-03-12] MEDS: LEVOTHYROXINE SODIUM 200 MCG TABLET PO SCH (06:11)
[2020-03-12 06:16] LABS: Basophils # (auto) 0.03 K/uL (0-0.2); Basophils % (auto) 0.4 %; Eosinophils # (auto) 0.13 K/uL (0-0.5); Eosinophils % (auto) 1.6 %; Hematocrit (blood only) 28.6 % (37-47); Hemoglobin 9.3 g/dL (12.0-16.0); Immature Granulocytes # (auto) 0.04 K/uL (0.00-0.02); Immature Granulocytes % (auto) 0.5 %; Lymphocytes # (auto) 0.71 K/uL (1.2-3.4); Lymphocytes % (auto) 8.8 %; Mean Corpuscular Hemoglobin 28.7 pg (25-34); Mean Corpuscular Hgb Conc 32.5 g/dL (32-36); Mean Corpuscular Volume 88.3 fL (80-100); Mean Platelet Volume 8.3 fL (7.4-10.4); Monocytes # (auto) 0.72 K/uL (0.11-0.59); Monocytes % (auto) 8.9 %; Neutrophils # (auto) 6.48 K/uL (1.4-6.5); Neutrophils % (auto) 79.8 %; Platelet Count 327 K/uL (130-400); RDW Coefficient of Variation 15.7 % (11.5-14.5); RDW Standard Deviation 50.5 fL (36.4-46.3); Red Blood Count 3.24 M/uL (4.2-5.4); White Blood Count 8.11 K/uL (4.8-10.8)
[2020-03-12 06:52] LABS: Albumin Level 2.5 gm/dl (3.4-5.0); BUN Creatinine Ratio 14.7 (10-20); Calcium 8.4 mg/dl (8.5-10.1); Creatinine Clr Calc Pharmacy 9.9 ml/min; Est GFR (African American) 10.5; Est GFR (Non-African American) 9.1; Potassium 4.6 mmol/L (3.5-5.1)
[2020-03-12] MEDS: ALBUT/IPRATROP 3MG/0.5MG NEB 3 ML VIAL NEB PRN (07:08)
[2020-03-12] MEDS: INSULIN GLARGINE SOLOSTAR 100 UNITS/ML 3 ML PEN SQ SCH (08:12)
[2020-03-12] MEDS: HEPARIN SOD 5,000 UNIT/0.5 ML VIAL SQ SCH ×2 (08:13→20:33)
[2020-03-12] MEDS: INSULIN ASPART 100 UNITS/ML 3 ML PEN SC SCH ×4 (08:13→20:31)
[2020-03-12] MEDS: buPROPion SR 100 MG TABCR PO SCH ×2 (08:30→20:32)
[2020-03-12] MEDS: DOCUSATE SODIUM 100 MG CAP PO SCH ×2 (08:30→20:33)
[2020-03-12] MEDS: PANTOprazole 40 MG TAB PO SCH (08:30)
[2020-03-12] MEDS: ARIPIprazole 1 MG/ML ORAL SOLN 150 ML BTL PO SCH (08:30)
[2020-03-12] MEDS: ESCITALOPRAM OXALATE 10 MG TAB PO SCH (08:30)
[2020-03-12] MEDS: FUROSEMIDE 100 MG in SYRINGE 0 ML IV SCH ×2 (08:31→20:33)
[2020-03-12] MEDS: MAGNESIUM OXIDE 400 MG TAB PO SCH ×3 (08:31→20:33)
[2020-03-12] MEDS: carvediloL 12.5 MG TAB PO SCH ×2 (08:31→20:33)
[2020-03-12] MEDS: CHOLECALCIFEROL 1,000 UNITS 25 MCG TAB PO SCH (08:31)
[2020-03-12] MEDS: hydrALAZINE TAB 50 MG TAB PO SCH ×3 (08:32→20:32)
[2020-03-12] MEDS: CLOPIDOGREL BISULFATE 75 MG TAB PO SCH (08:32)
[2020-03-12] MEDS: amLODIPine BESYLATE 5 MG TAB PO SCH (08:32)
[2020-03-12] MEDS: ZINC SULFATE 220 MG CAPSULE PO SCH (08:32)
--- NOTE | 2020-03-12 10:48 | Nephrology Progress Note ---
Date of Service March 12, 2020 Assessment & Plan (1) BARBARA (acute kidney injury): Patient with acute kidney injury on CKD. She has CKD stage III at baseline. Creatinine uptrending to 4.2 today and BUN of 63 likely in setting of diuresis. Chest x-ray still showing pulmonary edema and episodes of hypoxia. I discussed with the patient possibility of dialysis during this admission if renal function continues to worsen with diuresis. Patient is agreeable to dialysis if needed. Will monitor closely this weekend. -Monitor input output -Daily BMP. -Continue Lasix and metolazone at current doses. (2) Hyponatremia: Due to volume overload. We will continue diuretics and monitor sodium daily. Fluid restriction of 1.2 L daily. Admission and Anticipated Discharge Date Admission Date: March 08, 2020 Subjective Patient with CKD stage III admitted with a fall found to have worsening renal function and pulmonary edema on imaging. She is getting Lasix 100 mg twice daily and metolazone. She made about a liter of urine yesterday and was about even. Creatinine is up trending to 4.2 today and BUN of 63. She complains of left leg pain from the fall. She was short of breath this morning but improved after breathing treatment. Review of Systems Review of Systems: All systems reviewed & are unremarkable except as noted in HPI & below Physical Exam Physical Exam: General exam: Appears comfortable, no acute distress HEENT: Pupils are equal and reactive to light Neck: No JVD, neck is supple trachea is midline Respiratory system: Crackles bilaterally. Gastrointestinal: Abdomen is soft, non distended, non tender, bowel sounds are present CVS: Regular rate and rhythm. No murmurs, rubs or gallops Musculoskeletal: No joint or muscle tenderness Extremities: Non tender, 1+ edema, peripheral pulses are present Neuro: Oriented, no tremors, no focal neurological deficits Skin: No rashes Results & Data ([facility]) Vital Signs (Past 12 Hours) Vital Signs Temp Pulse Pulse Resp BP BP Pulse Ox 03/12/20 08:27 36.5 C 82 18 161/66 H 91 03/12/20 08:00 89 03/12/20 07:08 87 20 91 03/12/20 04:33 152/57 H 03/12/20 03:26 36.3 C L 79 16 171/66 H 91 03/11/20 23:00 36.4 C L 77 16 168/68 H 93 Laboratory Results 03/12/20 05:51 03/12/20 03/12/20 05:51 05:51 WBC 8.11 RBC 3.24 L MCV 88.3 MCH 28.7 MCHC 32.5 RDW Std Deviation 50.5 H RDW Coeff of Rosalba 15.7 H Plt Count 327 MPV 8.3 Phosphorus 7.0 H Albumin 2.5 L
[2020-03-12] MEDS: CALCIUM 600MG + VIT D 400 IU TAB PO SCH (13:22)
[2020-03-12] MEDS: FERROUS FUMARATE/ASCORBIC ACID 65 MG CAPCR PO SCH (13:22)
[2020-03-12] MEDS ORDERED: amLODIPine BESYLATE 5 MG TAB PO ONE (13:45)
--- NOTE | 2020-03-12 19:47 | Hospitalist Progress Note ---
Date of Service March 12, 2020 Assessment & Plan (1) BARBARA (acute kidney injury): ASSESSMENT AND PLAN: This is an 84-year-old female who was admitted to [facility] on 03/04/2020 with a fall and found to have acute kidney injury and anemia, status post PRBC transfusion. Was transferred because of worsening renal function and hyperkalemia. 1. Acute kidney injury on chronic kidney disease stage III likely from ATN - baseline creatinine around 1.9 to 2 - crea still trending upwards Low urine output Continue Lasix IV in light of volume overload Discussed with nephrology, may need hemodialysis Discussed with patient and her daughter at the bedside Echocardiogram: Preserved ejection fraction 2. Hyperkalemia - potassium was 5.8. Received insulin, dextrose, and Kayexalate. -Resolved Lasix ordered 3. Diabetes. Continue with Lantus insulin sliding scale. 4. Hypothyroidism. Continue Synthroid. 5. Gastroesophageal reflux disease, continue PPI. 6. Chronic diastolic congestive heart failure (+) Acute Exacerbation - Lasix ordered 7. Hypertension. Blood pressure elevated Amlodipine 5 mg p.o. daily started Hydralazine IV PRN ordered Continue her Coreg and hydralazine 50 mg 3 times daily Monitor 8. Lower extremity infection of the toes with methicillin-resistant Staphylococcus aureus -Completed course of IV clindamycin - Wound care consulted 9. Coronary artery disease, mild nonobstructive CAD on catheterization in 2011. Continue beta opal, Plavix, stable. 10. History of mild obstructive sleep apnea and nocturnal hypoxemia. Oxygen at bedtime. 11. Anemia of chronic kidney disease, iron deficiency anemia, on iron supplements. Received 2 units of PRBC at another hospital. - Hg 9.7 --> 9.3 12. Depression and anxiety. Continue Abilify, Wellbutrin. 13. History of cerebrovascular accident -- on aspirin and Plavix. 14. History of chronic diastolic heart failure with recurrent pleural effusions requiring multiple thoracenteses. - CXR: 1. Cardiomegaly with pulmonary vascular congestion and interstitial coarsening suggestive of pulmonary edema. 2. Left basilar opacities suggest atelectasis versus pneumonitis. 3. Trace right pleural effusion. 4. Emphysema. - management per above 15. History of severe mitral regurgitation due to prolapse of P2 segment, status post mitral valve repair with resection of the P2 leaflet and placement of dura and mitral valve annuloplasty. Patent foramen ovale, status post surgical closure at the time of the mitral valve repair. 16. Chronic lymphedema and venous insufficiency of both lower extremities. 17. History of rheumatic fever as a child. 18. History of prolonged QT. 480 --> 478 19. Deep venous thrombosis prophylaxis. heparin subQ Disposition pending management of acute renal failure, etc. in progress PT/OT eval ordered Admission and Anticipated Discharge Date Admission Date: March 08, 2020 Subjective Follow-up for acute renal failure Patient seen resting bedside chair, not in distress Daughter visiting at the bedside Again had shortness of breath in the morning, now resolved Denies chest pain, palpitations, dizziness, abdominal pain, nausea Denies leg pain No other symptoms Review of Systems Review of Systems: All systems reviewed & are unremarkable except as noted in Subjective Physical Exam Physical Exam: General- oriented x 3, not in distress, speaks in sentences with no effort or accessory muscle use Eyes- anicteric Neck- no JVD Lungs-mild wheezing right lower base, good air entry bilaterally Heart- normal rate, regular rhythm; no murmurs Abdomen- normal bowel sounds, nondistended, soft, nontender Extremities-lower extremity edema, no calf tenderness Neuro- alert, oriented x 3; no gross focal neurologic deficits Skin- warm & dry Results & Data Results & Data ([facility]) Vital Signs (Past 12 Hours) Vital Signs Temp Pulse Pulse Resp BP Pulse Ox 03/12/20 17:09 36.2 C L 74 18 146/75 H 97 03/12/20 15:56 75 03/12/20 13:28 171/64 H 03/12/20 12:11 36.4 C L 73 18 95 03/12/20 08:27 36.5 C 82 18 161/66 H 91 03/12/20 08:00 89 Laboratory Results Laboratory Results - last 24 hr 03/11/20 03/12/20 03/12/20 20:01 05:51 05:51 WBC 8.11 RBC 3.24 L Hgb 9.3 L Hct 28.6 L MCV 88.3 MCH 28.7 MCHC 32.5 RDW Std Deviation 50.5 H RDW Coeff of Rosalba 15.7 H Plt Count 327 MPV 8.3 Immature Gran % (Auto) 0.5 Neut % (Auto) 79.8 Lymph % (Auto) 8.8 Mcclain % (Auto) 8.9 Eos % (Auto) 1.6 Baso % (Auto) 0.4 Neut # (Auto) 6.48 Lymph # (Auto) 0.71 L Mcclain # (Auto) 0.72 H Eos # (Auto) 0.13 Baso # (Auto) 0.03 Immature Gran # (Auto) 0.04 H Sodium 129 L Potassium 4.6 Chloride 95 L Carbon Dioxide 24 Anion Gap 10.0 BUN 63 H Creatinine 4.27 H D Est Cr Clr Drug Dosing 9.9 Est GFR ( Amer) 10.5 Est GFR (Non-Af Amer) 9.1 BUN/Creatinine Ratio 14.7 Glucose 91 POC Glucose 170 H Calcium 8.4 L Phosphorus 7.0 H Albumin 2.5 L 03/12/20 03/12/20 03/12/20 07:56 11:57 16:38 WBC RBC Hgb Hct MCV MCH MCHC RDW Std Deviation RDW Coeff of Rosalba Plt Count MPV Immature Gran % (Auto) Neut % (Auto) Lymph % (Auto) Mcclain % (Auto) Eos % (Auto) Baso % (Auto) Neut # (Auto) Lymph # (Auto) Mcclain # (Auto) Eos # (Auto) Baso # (Auto) Immature Gran # (Auto) Sodium Potassium Chloride Carbon Dioxide Anion Gap BUN Creatinine Est Cr Clr Drug Dosing Est GFR ( Amer) Est GFR (Non-Af Amer) BUN/Creatinine Ratio Glucose POC Glucose 121 H 117 H 185 H Calcium Phosphorus Albumin
[2020-03-13] MEDS: LEVOTHYROXINE SODIUM 200 MCG TABLET PO SCH (06:21)
[2020-03-13 07:23] LABS: Basophils # (auto) 0.01 K/uL (0-0.2); Basophils % (auto) 0.1 %; Eosinophils # (auto) 0.13 K/uL (0-0.5); Eosinophils % (auto) 1.6 %; Hematocrit (blood only) 28.6 % (37-47); Hemoglobin 9.4 g/dL (12.0-16.0); Immature Granulocytes # (auto) 0.03 K/uL (0.00-0.02); Immature Granulocytes % (auto) 0.4 %; Lymphocytes # (auto) 0.71 K/uL (1.2-3.4); Mean Corpuscular Hemoglobin 28.7 pg (25-34); Mean Corpuscular Hgb Conc 32.9 g/dL (32-36); Mean Corpuscular Volume 87.5 fL (80-100); Mean Platelet Volume 8.3 fL (7.4-10.4); Monocytes # (auto) 0.48 K/uL (0.11-0.59); Monocytes % (auto) 6.1 %; Neutrophils # (auto) 6.55 K/uL (1.4-6.5); Neutrophils % (auto) 82.8 %; Platelet Count 315 K/uL (130-400); RDW Coefficient of Variation 15.7 % (11.5-14.5); RDW Standard Deviation 49.7 fL (36.4-46.3); Red Blood Count 3.27 M/uL (4.2-5.4); White Blood Count 7.91 K/uL (4.8-10.8)
[2020-03-13] MEDS: INSULIN ASPART 100 UNITS/ML 3 ML PEN SC SCH ×4 (07:33→20:19)
[2020-03-13 08:34] LABS: Albumin Level 2.4 gm/dl (3.4-5.0); BUN Creatinine Ratio 16.1 (10-20); Calcium 8.6 mg/dl (8.5-10.1); Est GFR (African American) 9.6; Est GFR (Non-African American) 8.3; Phosphorus 7.2 mg/dl (2.5-4.9); Potassium 4.9 mmol/L (3.5-5.1)
[2020-03-13] MEDS: MAGNESIUM OXIDE 400 MG TAB PO SCH ×3 (09:05→20:18)
[2020-03-13] MEDS: PANTOprazole 40 MG TAB PO SCH (09:05)
[2020-03-13] MEDS: CHOLECALCIFEROL 1,000 UNITS 25 MCG TAB PO SCH (09:05)
[2020-03-13] MEDS: FUROSEMIDE 100 MG in SYRINGE 0 ML IV SCH ×2 (09:05→20:17)
[2020-03-13] MEDS: CLOPIDOGREL BISULFATE 75 MG TAB PO SCH (09:06)
[2020-03-13] MEDS: ESCITALOPRAM OXALATE 10 MG TAB PO SCH (09:06)
[2020-03-13] MEDS: carvediloL 12.5 MG TAB PO SCH ×2 (09:06→20:17)
[2020-03-13] MEDS: amLODIPine BESYLATE 5 MG TAB PO SCH (09:06)
[2020-03-13] MEDS: buPROPion SR 100 MG TABCR PO SCH ×2 (09:06→20:19)
[2020-03-13] MEDS: hydrALAZINE TAB 50 MG TAB PO SCH ×3 (09:06→20:18)
[2020-03-13] MEDS: ARIPIprazole 1 MG/ML ORAL SOLN 150 ML BTL PO SCH (09:06)
[2020-03-13] MEDS: HEPARIN SOD 5,000 UNIT/0.5 ML VIAL SQ SCH ×2 (09:07→20:18)
[2020-03-13] MEDS: INSULIN GLARGINE SOLOSTAR 100 UNITS/ML 3 ML PEN SQ SCH (09:07)
[2020-03-13] MEDS: DOCUSATE SODIUM 100 MG CAP PO SCH ×2 (09:12→20:19)
--- NOTE | 2020-03-13 10:40 | Nephrology Progress Note ---
Date of Service March 13, 2020 Assessment & Plan (1) BARBARA (acute kidney injury): Patient with acute kidney injury on CKD. She has CKD stage III at baseline. Creatinine uptrending to 4.59 today and BUN of 74. Chest x-ray still showing pulmonary edema and episodes of hypoxia. I discussed with the patient possibility of dialysis during this admission if renal function continues to worsen with diuresis. Patient is agreeable to dialysis if needed. Will monitor closely this weekend. Patient will likely need a PermCath in the next 1 to 2 days. -Monitor input output -Daily BMP. -Continue Lasix and metolazone at current doses. (2) Hyponatremia: Due to volume overload. We will continue diuretics and monitor sodium daily. Fluid restriction of 1.2 L daily. Admission and Anticipated Discharge Date Admission Date: March 08, 2020 Subjective Patient feels better today. No shortness of breath. She was able to get out of bed to chair this morning. Urine output of 500 mL making her net even. Creatinine uptrending. Review of Systems Review of Systems: All systems reviewed & are unremarkable except as noted in HPI & below Physical Exam Physical Exam: General exam: Appears comfortable, no acute distress HEENT: Pupils are equal and reactive to light Neck: No JVD, neck is supple trachea is midline Respiratory system: Crackles bilaterally. Gastrointestinal: Abdomen is soft, non distended, non tender, bowel sounds are present CVS: Regular rate and rhythm. No murmurs, rubs or gallops Musculoskeletal: No joint or muscle tenderness Extremities: Non tender, 1+ edema, peripheral pulses are present Neuro: Oriented, no tremors, no focal neurological deficits Skin: No rashes Results & Data ([facility]) Vital Signs (Past 12 Hours) Vital Signs Temp Pulse Resp BP Pulse Ox 03/13/20 03:24 36.7 C 83 16 155/67 H 91 03/12/20 23:14 36.7 C 76 16 161/64 H 94 Laboratory Results 03/13/20 07:05 03/13/20 03/13/20 07:05 07:05 WBC 7.91 RBC 3.27 L MCV 87.5 MCH 28.7 MCHC 32.9 RDW Std Deviation 49.7 H RDW Coeff of Rosalba 15.7 H Plt Count 315 MPV 8.3 Phosphorus 7.2 H Albumin 2.4 L
[2020-03-13] MEDS: ZINC SULFATE 220 MG CAPSULE PO SCH (11:48)
[2020-03-13] MEDS: CALCIUM 600MG + VIT D 400 IU TAB PO SCH (11:48)
--- NOTE | 2020-03-13 21:04 | Hospitalist Progress Note ---
Date of Service March 13, 2020 Assessment & Plan (1) BARBARA (acute kidney injury): ASSESSMENT AND PLAN: This is an 84-year-old female who was admitted to [facility] on 03/04/2020 with a fall and found to have acute kidney injury and anemia, status post PRBC transfusion. Was transferred because of worsening renal function and hyperkalemia. 1. Acute kidney injury on chronic kidney disease stage III likely from ATN - baseline creatinine around 1.9 to 2 - crea not improving Low urine output Continue Lasix IV for volume overload Discussed with nephrology, may need hemodialysis Discussed with patient and her daughter at the bedside Echocardiogram: Preserved ejection fraction 2. Hyperkalemia - potassium was 5.8. Received insulin, dextrose, and Kayexalate. -Resolved Lasix ordered 3. Diabetes. Continue with Lantus insulin sliding scale. 4. Hypothyroidism. Continue Synthroid. 5. Gastroesophageal reflux disease, continue PPI. 6. Chronic diastolic congestive heart failure (+) Acute Exacerbation - Lasix ordered 7. Hypertension. Blood pressure elevated Amlodipine 5 mg p.o. daily started--Improving Hydralazine IV PRN ordered Continue her Coreg and hydralazine 50 mg 3 times daily Monitor 8. Lower extremity infection of the toes with methicillin-resistant Staphylococcus aureus -Completed course of IV clindamycin - Wound care consulted 9. Coronary artery disease, mild nonobstructive CAD on catheterization in 2011. Continue beta opal, Plavix, stable. 10. History of mild obstructive sleep apnea and nocturnal hypoxemia. Oxygen at bedtime. 11. Anemia of chronic kidney disease, iron deficiency anemia, on iron supplements. Received 2 units of PRBC at another hospital. - Hg 9.7 --> 9.3 12. Depression and anxiety. Continue Abilify, Wellbutrin. 13. History of cerebrovascular accident -- on aspirin and Plavix. 14. History of chronic diastolic heart failure with recurrent pleural effusions requiring multiple thoracenteses. - CXR: 1. Cardiomegaly with pulmonary vascular congestion and interstitial coarsening suggestive of pulmonary edema. 2. Left basilar opacities suggest atelectasis versus pneumonitis. 3. Trace right pleural effusion. 4. Emphysema. - management per above 15. History of severe mitral regurgitation due to prolapse of P2 segment, status post mitral valve repair with resection of the P2 leaflet and placement of dura and mitral valve annuloplasty. Patent foramen ovale, status post surgical closure at the time of the mitral valve repair. 16. Chronic lymphedema and venous insufficiency of both lower extremities. 17. History of rheumatic fever as a child. 18. History of prolonged QT. 480 --> 478 19. Deep venous thrombosis prophylaxis. heparin subQ Disposition pending management of acute renal failure, etc. in progress PT/OT eval ordered Admission and Anticipated Discharge Date Admission Date: March 08, 2020 Subjective ff up for acute renal failure seen resting in bedside chair comfortable, not in distress states she feels ok had dyspnea earlier in AM, resolved no nausea no other symptoms Review of Systems Review of Systems: All systems reviewed & are unremarkable except as noted in Subjective Physical Exam Physical Exam: General- oriented x 3, not in distress, speaks in sentences with no effort or accessory muscle use Eyes- anicteric Neck- no JVD Lungs- mild crackles at the bases Heart- normal rate, regular rhythm; no murmurs Abdomen- normal bowel sounds, nondistended, soft, nontender Extremities- grade 1 lower ext edema Neuro- alert, oriented x 3; no gross focal neurologic deficits Skin- warm & dry Results & Data Results & Data ([facility]) Vital Signs (Past 12 Hours) Vital Signs Temp Pulse Pulse Resp BP BP Pulse Ox 03/13/20 20:00 36.5 C 65 16 157/68 H 96 03/13/20 16:00 36.3 C L 76 18 161/68 H 97 03/13/20 12:58 36.3 C L 70 18 144/67 H 98 Laboratory Results noted and reviewed
[2020-03-14] MEDS: LEVOTHYROXINE SODIUM 200 MCG TABLET PO SCH (06:25)
[2020-03-14 08:22] LABS: Basophils # (auto) 0.02 K/uL (0-0.2); Basophils % (auto) 0.3 %; Eosinophils # (auto) 0.13 K/uL (0-0.5); Eosinophils % (auto) 1.6 %; Hematocrit (blood only) 28.2 % (37-47); Hemoglobin 9.4 g/dL (12.0-16.0); Immature Granulocytes # (auto) 0.02 K/uL (0.00-0.02); Immature Granulocytes % (auto) 0.3 %; Lymphocytes # (auto) 0.79 K/uL (1.2-3.4); Lymphocytes % (auto) 9.9 %; Mean Corpuscular Hemoglobin 28.9 pg (25-34); Mean Corpuscular Hgb Conc 33.3 g/dL (32-36); Mean Corpuscular Volume 86.8 fL (80-100); Mean Platelet Volume 8.3 fL (7.4-10.4); Monocytes # (auto) 0.71 K/uL (0.11-0.59); Monocytes % (auto) 8.9 %; Neutrophils # (auto) 6.28 K/uL (1.4-6.5); Platelet Count 345 K/uL (130-400); RDW Coefficient of Variation 15.6 % (11.5-14.5); RDW Standard Deviation 49.7 fL (36.4-46.3); Red Blood Count 3.25 M/uL (4.2-5.4); White Blood Count 7.95 K/uL (4.8-10.8)
[2020-03-14] MEDS: MAGNESIUM OXIDE 400 MG TAB PO SCH ×3 (08:35→20:30)
[2020-03-14] MEDS: INSULIN ASPART 100 UNITS/ML 3 ML PEN SC SCH ×4 (08:35→20:31)
[2020-03-14] MEDS: CLOPIDOGREL BISULFATE 75 MG TAB PO SCH (08:35)
[2020-03-14] MEDS: carvediloL 12.5 MG TAB PO SCH ×2 (08:35→20:30)
[2020-03-14] MEDS: CHOLECALCIFEROL 1,000 UNITS 25 MCG TAB PO SCH (08:35)
[2020-03-14] MEDS: amLODIPine BESYLATE 5 MG TAB PO SCH (08:35)
[2020-03-14] MEDS: buPROPion SR 100 MG TABCR PO SCH ×2 (08:36→20:29)
[2020-03-14] MEDS: hydrALAZINE TAB 50 MG TAB PO SCH ×3 (08:36→20:30)
[2020-03-14] MEDS: ARIPIprazole 1 MG/ML ORAL SOLN 150 ML BTL PO SCH (08:36)
[2020-03-14] MEDS: PANTOprazole 40 MG TAB PO SCH (08:36)
[2020-03-14] MEDS: ESCITALOPRAM OXALATE 10 MG TAB PO SCH (08:36)
[2020-03-14] MEDS: HEPARIN SOD 5,000 UNIT/0.5 ML VIAL SQ SCH ×2 (08:37→20:30)
[2020-03-14] MEDS: INSULIN GLARGINE SOLOSTAR 100 UNITS/ML 3 ML PEN SQ SCH (08:37)
[2020-03-14] MEDS: FUROSEMIDE 100 MG in SYRINGE 0 ML IV SCH ×2 (08:37→20:31)
[2020-03-14 09:08] LABS: Albumin Level 2.5 gm/dl (3.4-5.0); BUN Creatinine Ratio 15.8 (10-20); Calcium 8.8 mg/dl (8.5-10.1); Creatinine Clr Calc Pharmacy 8.7 ml/min; Est GFR (African American) 8.5; Est GFR (Non-African American) 7.3; Phosphorus 7.5 mg/dl (2.5-4.9); Potassium 5.3 mmol/L (3.5-5.1)
[2020-03-14] MEDS: DOCUSATE SODIUM 100 MG CAP PO SCH ×2 (09:25→21:56)
--- NOTE | 2020-03-14 10:25 | Nephrology Progress Note ---
Date of Service March 14, 2020 Assessment & Plan (1) BARBARA (acute kidney injury): Patient with acute kidney injury on CKD 4 w/ baseline eGFR about 20. She has CKD stage IV at baseline. Creatinine uptrending further today to 5.1 and BUN of 80. Chest x-ray still showing pulmonary edema a few days back and episodes of hypoxia. I discussed with the patient we need to either move forward with dialysis or make a plan for conservative care. She is understandably tearful about it and agrees to meet surgeon / move forward but would like to continue to discuss goals of care as well. I am concerned her uremic sx and volume overload may hit critical level if we discuss much longer w/o at least preparing for dialysis. today w/ worsening creatinine, chemistries; borderline vol status -Monitor input output strictly >ordered dialysis diet, FR 1.2L -placed both palliative consult (to discuss goals of care further) as well as vascular consult (for tunnelled dialysis catheter) -defer to primary service to optimize care for depression and anxiety - long hx of psych dxs and may need psych consultation -Daily BMP -Continue Lasix at current dose; metolazone on hold (2) Hyponatremia: Due to volume overload and further worsening despite maximal diuretics. We will continue diuretics and monitor sodium daily. Fluid restriction of 1.2 L daily ordered. Admission and Anticipated Discharge Date Admission Date: March 08, 2020 Subjective seen on rounds at about 0950; tearful, states "I'm afraid of dialysis" but "I don't want to ." ongoing significant weeping LE edema. no n/v, no sob. + depression Review of Systems Review of Systems: All systems reviewed & are unremarkable except as noted in HPI & below Physical Exam Constitutional: well developed, well nourished, + acute distress (mild emotional/tearful distress) and + frail appearing; not ill appearing Eyes: EOM intact bilaterally ENMT: Ears: no external ear abnormality Nose: no external nose abnormality Mouth: + dry oral mucous membranes Neck: no nuchal rigidity Respiratory: normal respiratory effort Auscultation: lungs clear to auscultation bilaterally and + diminished lung sounds (bibasilar) Cardiovascular: Rate/Rhythm: regular rate and regular rhythm Extremities: + edema (2-3+ BLE wrapped L>R) Gastrointestinal (Abdomen): Inspection/Auscultation: normal bowel sounds Percussion/Palpation: abdomen soft; abdomen nontender Musculoskeletal: Extremities: strength 5/5 throughout Skin: no rashes, warm and dry fragile thin skin w/ subQ edema Neurologic: ochoa, fluent speech, no tremor Psychiatric: Orientation: alert and oriented x 3 Eye Contact: good eye contact Speech: normal rate/rhythm/volume of speech Affect: + anxious affect and + tearful affect Genitourinary: ortiz w/ darker shah cloudy urine Results & Data ([facility]) Vital Signs (Past 12 Hours) Vital Signs Temp Pulse Pulse Resp BP BP Pulse Ox 03/14/20 08:00 75 03/14/20 07:32 36.3 C L 82 16 164/67 H 94 03/14/20 04:00 36.4 C L 75 19 149/69 H 93 03/14/20 00:00 69 03/13/20 23:00 36.6 C 69 16 124/70 96 Laboratory Results 03/14/20 07:47 03/14/20 07:47 Diagnostic Findings none new; last CXR reviewed
[2020-03-14] MEDS: ZINC SULFATE 220 MG CAPSULE PO SCH (11:58)
[2020-03-14] MEDS: CALCIUM 600MG + VIT D 400 IU TAB PO SCH (11:58)
--- NOTE | 2020-03-14 20:49 | Hospitalist Progress Note ---
Date of Service March 14, 2020 Assessment & Plan (1) BARBARA (acute kidney injury): ASSESSMENT AND PLAN: This is an 84-year-old female who was admitted to [facility] on 03/04/2020 with a fall and found to have acute kidney injury and anemia, status post PRBC transfusion. Was transferred because of worsening renal function and hyperkalemia. 1. Acute kidney injury on chronic kidney disease stage III likely from ATN - baseline creatinine around 1.9 to 2 - crea not improving Low urine output Vascular surgery consulted for Dialysis Cath placement Continue Lasix IV for volume overload Discussed with patient and her daughter at the bedside in detail and at length all questions answered they are understanding and agreeable with plan of care Palliative care and Psych consulted 2. Hyperkalemia - potassium was 5.8. Received insulin, dextrose, and Kayexalate. -Resolved Lasix ordered 3. Diabetes. Continue with Lantus insulin sliding scale. 4. Hypothyroidism. Continue Synthroid. 5. Gastroesophageal reflux disease, continue PPI. 6. Chronic diastolic congestive heart failure (+) Acute Exacerbation - Lasix ordered 7. Hypertension. Blood pressure elevated Amlodipine 5 mg p.o. daily started--Improving Hydralazine IV PRN ordered Continue her Coreg and hydralazine 50 mg 3 times daily Monitor 8. Lower extremity infection of the toes with methicillin-resistant Staphylococcus aureus -Completed course of IV clindamycin - Wound care consulted 9. Coronary artery disease, mild nonobstructive CAD on catheterization in 2011. Continue beta opal, Plavix, stable. 10. History of mild obstructive sleep apnea and nocturnal hypoxemia. Oxygen at bedtime. 11. Anemia of chronic kidney disease, iron deficiency anemia, on iron supplements. Received 2 units of PRBC at another hospital. - Hg 9.7 --> 9.3 12. Depression and anxiety. Continue Abilify, Wellbutrin. 13. History of cerebrovascular accident -- on aspirin and Plavix. 14. History of chronic diastolic heart failure with recurrent pleural effusions requiring multiple thoracenteses. - CXR: 1. Cardiomegaly with pulmonary vascular congestion and interstitial coarsening suggestive of pulmonary edema. 2. Left basilar opacities suggest atelectasis versus pneumonitis. 3. Trace right pleural effusion. 4. Emphysema. - Echocardiogram: Preserved ejection fraction - management per above 15. History of severe mitral regurgitation due to prolapse of P2 segment, status post mitral valve repair with resection of the P2 leaflet and placement of dura and mitral valve annuloplasty. Patent foramen ovale, status post surgical closure at the time of the mitral valve repair. 16. Chronic lymphedema and venous insufficiency of both lower extremities. 17. History of rheumatic fever as a child. 18. History of prolonged QT. 480 --> 478 19. Deep venous thrombosis prophylaxis. heparin subQ Disposition pending management of acute renal failure, etc. in progress PT/OT eval ordered Admission and Anticipated Discharge Date Admission Date: March 08, 2020 Subjective ff up for acute renal failure seen resting in chair not in distress no SOB, nausea reports feeling depressed, anxious about medical condition discuss case and plan of care daughter Neto at bedside patient reassured no other symptoms Review of Systems Review of Systems: All systems reviewed & are unremarkable except as noted in Subjective Physical Exam Physical Exam: General- oriented x 3, not in distress, speaks in sentences with no effort or accessory muscle use Eyes- anicteric Neck- no JVD Lungs- clear BS BL Heart- normal rate, regular rhythm; no murmurs Abdomen- normal bowel sounds, nondistended, soft, nontender Extremities-grade 1-2 lower leg edema, no calf tenderness Neuro- alert, oriented x 3; no gross focal neurologic deficits Skin- warm & dry Results & Data Results & Data ([facility]) Vital Signs (Past 12 Hours) Vital Signs Temp Pulse Resp BP Pulse Ox 03/14/20 19:41 36.5 C 72 18 168/71 H 97 03/14/20 10:44 36.4 C L 73 16 155/68 H 97 Laboratory Results Laboratory Results - last 24 hr 03/14/20 03/14/20 03/14/20 07:31 07:47 07:47 WBC 7.95 RBC 3.25 L Hgb 9.4 L Hct 28.2 L MCV 86.8 MCH 28.9 MCHC 33.3 RDW Std Deviation 49.7 H RDW Coeff of Rosalba 15.6 H Plt Count 345 MPV 8.3 Immature Gran % (Auto) 0.3 Neut % (Auto) 79.0 Lymph % (Auto) 9.9 Brule % (Auto) 8.9 Eos % (Auto) 1.6 Baso % (Auto) 0.3 Neut # (Auto) 6.28 Lymph # (Auto) 0.79 L Brule # (Auto) 0.71 H Eos # (Auto) 0.13 Baso # (Auto) 0.02 Immature Gran # (Auto) 0.02 Sodium 127 L Potassium 5.3 H Chloride 93 L Carbon Dioxide 25 Anion Gap 9.0 BUN 80 H Creatinine 5.09 H* D Est Cr Clr Drug Dosing 8.7 Est GFR ( Amer) 8.5 Est GFR (Non-Af Amer) 7.3 BUN/Creatinine Ratio 15.8 Glucose 91 POC Glucose 112 H Calcium 8.8 Phosphorus 7.5 H Albumin 2.5 L 03/14/20 03/14/20 03/14/20 11:14 16:26 20:27 WBC RBC Hgb Hct MCV MCH MCHC RDW Std Deviation RDW Coeff of Rosalba Plt Count MPV Immature Gran % (Auto) Neut % (Auto) Lymph % (Auto) Brule % (Auto) Eos % (Auto) Baso % (Auto) Neut # (Auto) Lymph # (Auto) Brule # (Auto) Eos # (Auto) Baso # (Auto) Immature Gran # (Auto) Sodium Potassium Chloride Carbon Dioxide Anion Gap BUN Creatinine Est Cr Clr Drug Dosing Est GFR ( Amer) Est GFR (Non-Af Amer) BUN/Creatinine Ratio Glucose POC Glucose 138 H 109 H 166 H Calcium Phosphorus Albumin
[2020-03-15] MEDS ORDERED: ONDANSETRON INJ 2 MG/ML 2 ML VIAL ONE (06:17)
[2020-03-15 08:01] LABS: Basophils # (auto) 0.01 K/uL (0-0.2); Basophils % (auto) 0.1 %; Eosinophils # (auto) 0.13 K/uL (0-0.5); Eosinophils % (auto) 1.4 %; Hematocrit (blood only) 26.7 % (37-47); Hemoglobin 8.6 g/dL (12.0-16.0); Immature Granulocytes # (auto) 0.03 K/uL (0.00-0.02); Immature Granulocytes % (auto) 0.3 %; Lymphocytes # (auto) 0.68 K/uL (1.2-3.4); Lymphocytes % (auto) 7.1 %; Mean Corpuscular Hemoglobin 28.2 pg (25-34); Mean Corpuscular Hgb Conc 32.2 g/dL (32-36); Mean Corpuscular Volume 87.5 fL (80-100); Mean Platelet Volume 8.3 fL (7.4-10.4); Monocytes # (auto) 0.75 K/uL (0.11-0.59); Monocytes % (auto) 7.9 %; Neutrophils # (auto) 7.94 K/uL (1.4-6.5); Neutrophils % (auto) 83.2 %; Platelet Count 323 K/uL (130-400); RDW Standard Deviation 50.5 fL (36.4-46.3); Red Blood Count 3.05 M/uL (4.2-5.4); White Blood Count 9.54 K/uL (4.8-10.8)
[2020-03-15] MEDS: CLOPIDOGREL BISULFATE 75 MG TAB PO SCH (08:31)
[2020-03-15] MEDS: amLODIPine BESYLATE 5 MG TAB PO SCH (08:31)
[2020-03-15] MEDS: hydrALAZINE TAB 50 MG TAB PO SCH ×3 (08:31→20:19)
[2020-03-15] MEDS: FUROSEMIDE 100 MG in SYRINGE 0 ML IV SCH ×2 (08:31→20:19)
[2020-03-15] MEDS: LEVOTHYROXINE SODIUM 200 MCG TABLET PO SCH (08:31)
[2020-03-15] MEDS: carvediloL 12.5 MG TAB PO SCH ×2 (08:31→20:19)
[2020-03-15] MEDS: DOCUSATE SODIUM 100 MG CAP PO SCH ×2 (08:32→21:41)
[2020-03-15] MEDS: INSULIN GLARGINE SOLOSTAR 100 UNITS/ML 3 ML PEN SQ SCH (08:32)
[2020-03-15] MEDS: HEPARIN SOD 5,000 UNIT/0.5 ML VIAL SQ SCH ×2 (08:32→20:20)
[2020-03-15] MEDS: INSULIN ASPART 100 UNITS/ML 3 ML PEN SC SCH ×4 (08:32→21:41)
[2020-03-15 08:41] LABS: Albumin Level 2.3 gm/dl (3.4-5.0); BUN Creatinine Ratio 15.4 (10-20); Calcium 8.5 mg/dl (8.5-10.1); Creatinine Clr Calc Pharmacy 7.5 ml/min; Est GFR (African American) 7.6; Est GFR (Non-African American) 6.5; Phosphorus 7.6 mg/dl (2.5-4.9); Potassium 5.8 mmol/L (3.5-5.1)
[2020-03-15] MEDS ORDERED: HEPARIN SOD (PORCINE) 5,000 UNITS/ML VIAL ONE (08:51)
[2020-03-15] MEDS ORDERED: LIDOCAINE HCL 1% 20 ML VIAL ONE (08:51)
--- NOTE | 2020-03-15 09:00 | Consultation ---
Date of Consultation March 15, 2020 Assessment & Plan (1) BARBARA (acute kidney injury): Pt also seen by Dr Rivers today. Planning on permcath insertion later this morning. Pt agreeable. Dr Rivers discussed procedure with pt daughter, Cindy Zimmerman. Patient was seen, examined, and chart reviewed. Agree with exam and treatment plan of the Vascular PA. I have discussed the risks options and benefits of the procedure with the patient and daughter. The patient and daughter understand the risks options and benefits and agrees to the procedure. History of Present Illness Reason for Consultation: BARBARA, need permcath insertion for HD Attending Physician: Patrice Rebolledo MD History of Present Illness 84 yo f with hx of CKD, HTN CHF, CAD, DMII, osteoporosis, neuorpathy, hypothyroidism, depression/anxiety, GERD, hx mitral valve repair, admitted with acute kidney injury and hyperkalemia, seen in consultation today for insertion of permcath for HD. Pt has been reluctant to begin HD, but her renal fxn continues to decline. Pt admits fatigue and occasional nausea and YIN. Denies ROSA, fever, chest pain, SOB at rest, abd pain, diarrhea, rest pain, claudication, other complaints. Allergies Allergy/AdvReac Type Severity Reaction Status Date / Time No Known Allergies Allergy Verified 01/10/20 18:46 Home Medications Home Medications Medication Instructions Recorded Confirmed Type calcium carbonate [Calcium 600] 600 mg PO QDL 08/22/18 01/10/20 History carvedilol 25 mg PO AMHS 08/22/18 01/10/20 History clopidogrel [Plavix] 75 mg PO QAM 08/22/18 01/10/20 History magnesium oxide 400 mg PO TID 08/22/18 01/10/20 History tramadol 50 mg PO HS PRN 08/22/18 01/10/20 History vitamin A 10,000 unit PO QAM 08/22/18 01/10/20 History acetaminophen [Tylenol Extra 500 - 1,000 mg PO Q6H PRN 12/20/18 01/10/20 History Strength] torsemide See Rx Instructions .ROUTE .COMPLEX 12/20/18 01/10/20 History Lantus U-100 Insulin 15 unit SUBCUT QAM 01/10/20 01/10/20 History Vitron-C 1 tab PO QDL 01/10/20 01/10/20 History albuterol sulfate 2 puff INHALATION QID 01/10/20 01/10/20 History aripiprazole [Abilify] 1 mg PO QAM 01/10/20 01/10/20 History bupropion HCl [Wellbutrin SR] 100 mg PO BID 01/10/20 01/10/20 History cholecalciferol (vitamin D3) 125 mcg PO QAM 01/10/20 01/10/20 History [Vitamin D3] docusate sodium 100 mg PO AMHS 01/10/20 01/10/20 History pantoprazole 40 mg PO QAM 01/10/20 01/10/20 History polyethylene glycol 3350 [Miralax] 17 g PO DAILY PRN 01/10/20 01/10/20 History semaglutide 1 mg SUBCUT WK 01/10/20 01/10/20 History zinc sulfate [Zinc-220] 220 mg PO QDL 01/10/20 01/10/20 History Lexapro 10 mg PO DAILY 03/08/20 03/08/20 History hydralazine 50 mg PO TID 03/08/20 03/08/20 History levothyroxine 200 mcg PO DAILY 03/08/20 03/08/20 History Patient History Medical History Anemia due to chronic kidney disease CAD (coronary artery disease) Cardiac cath 2011 demonstrated nonobstructive disease Chronic diastolic CHF (congestive heart failure) Chronic kidney disease (CKD), stage III (moderate) CVA (cerebral vascular accident) Depression Diabetes mellitus, type II Diabetic polyneuropathy Dyslipidemia GERD (gastroesophageal reflux disease) History of pleural effusion With multiple thoracentesis Hypertension Hypothyroidism Iron deficiency anemia Osteoporosis Venous insufficiency of both lower extremities Surgical History S/P patent foramen ovale closure Status post cataract extraction Status post cholecystectomy Status post hysterectomy Status post mitral valve repair Family History Other Family history non-contributory Social History Smoking Status: Never smoker Second Hand Exposure: Yes (from parents); Do You Dip or Chew Tobacco: No; Hx Alcohol Use: Yes Alcohol type: beer Hx Substance Use: No Preferred Language: Montserratian Communication Ability: Effective 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 Federal Required: No Beliefs That Will Affect Care: None marital status: Current Living Situation: Spouse Current Living Situation Comment: pt states swears at her a lot and it gets to her current occupational status: retired How many Children do You have: 3 Other Information That Helps Us Care for You: No Feels Safe at Home: Yes Safety Concerns: Feels Safe At This Time Assistive Devices: Denture - Upper and Glasses Review of Systems Review of Systems: All systems reviewed & are unremarkable except as noted in HPI & below Physical Exam Constitutional: WD/WN, vitals as above + ill appearing, + frail appearing, cooperative and comfortable; not in distress Eyes: PERRL, conjunctivae normal, anicteric sclerae ENMT: Ears: no hearing impairment Neck: trachea midline Respiratory: normal respiratory effort Auscultation: + diminished lung sounds and + rales (mild bibasilar) Cardiovascular: Rate/Rhythm: regular rate and regular rhythm Vessels: posterior tibial pulses present, dorsalis pedis pulses present and radial pulses present; + abnormal peripheral pulses Extremities: normal capillary refill and + edema Gastrointestinal (Abdomen): normal bowel sounds, soft, nontender, no hepatosplenomegaly Musculoskeletal: no cyanosis or clubbing, extremities motor strength 5/5 Skin: no rashes, warm and dry Neurologic: moves all extremities and awake; no focal motor deficits and not confused Psychiatric: Orientation: alert and oriented x 3 Affect: + depressed affect, + anxious affect and + tearful affect Results & Data ([facility]) Vital Signs (Past 12 Hours) Vital Signs Temp Pulse Resp BP Pulse Ox 03/15/20 08:32 36.6 C 80 18 135/58 L 91 03/15/20 07:02 36.8 C 79 18 121/63 92 03/15/20 03:56 36.6 C 80 18 147/65 H 91 03/15/20 00:05 36.4 C L 75 17 135/70 94
[2020-03-15] MEDS ORDERED: fentaNYL citrate 100 MCG/2 ML VIAL ONE (09:20)
[2020-03-15] MEDS ORDERED: MIDAZOLAM HCL 1 MG/ML 2ML VIAL ONE (09:20)
[2020-03-15] MEDS ORDERED: ceFAZolin 1000MG 1,000 MG/7.5 ML SYR IV ONE (09:46)
--- NOTE | 2020-03-15 09:50 | Pre Anesthesia Assessment ---
Date of Service March 15, 2020 Pre Sedation Assessment Vital Signs Temp Pulse Pulse Resp BP Pulse Ox 03/15/20 09:36 37 C 79 18 145/63 H 91 03/15/20 08:32 36.6 C 80 18 135/58 L 91 03/15/20 07:02 36.8 C 79 18 121/63 92 03/15/20 03:56 36.6 C 80 18 147/65 H 91 03/15/20 00:05 36.4 C L 75 17 135/70 94 03/14/20 19:41 36.5 C 72 18 168/71 H 97 03/14/20 10:44 36.4 C L 73 16 155/68 H 97 Cardiovascular RRR, no murmur, no edema Respiratory normal respiratory effort, lungs clear to auscultation Pre-Sedation Airway Assessment Smoking Status: Never smoker Hx Sleep Apnea: Yes Short, Thick Neck: No Thyromental Distance: > or= 3.5 Finger Breadths Oral Cavity: + WNL Mallampati Class: II ASA: ASA4 NPO Status Date of Last Intake of Fluids: 03/14/20 Time of Last Intake of Fluids: 21:00 Date of Last Intake of Solid Food: 03/14/20 Time of Last Intake of Solid Foods: 21:00 Procedure Planning Contraindications for Sedation: none Current Medications Reviewed: Yes Notes The planned sedation has been discussed with the patient. Informed Consent was obtained. I have identified the patient, determined the appropriateness of sedation and have assessed the patient immediately prior to the procedure. All medicine(s) and interventions are by my order.
--- NOTE | 2020-03-15 10:10 | Nephrology Progress Note ---
Date of Service March 15, 2020 Assessment & Plan (1) BARBARA (acute kidney injury): Patient with acute kidney injury on CKD 4 w/ baseline eGFR about 20. She has CKD stage IV at baseline. Creatinine uptrending further today to 5.6 and BUN of 86. Chest x-ray still showing pulmonary edema a few days back. I further discussed indications, risks, benefits, alternatives to dialysis with pt. She states she wants to live to see great grandchildren grow and remains fearful about dialysis but chooses to proceed. Not sure about goals of care longer term- she is not. I am also not sure about how long HD will be needed but suspect longer term need given poor baseline function. I also called her daughter Cindy Zimmerman to discuss indications, risks, benefits of dialysis. We spoke for about 10-12 minutes by phone. Daughter states that pt "was CKD 3 only a few weeks ago in clinic." I did review OP chart >> she has been stage 4 and progressive since at least 03/2019; PA note from clinic notes progressive stage 4 but classified on standing dxs in error as stage 3; will d/w PA. After review of goals of care and above discussions, consent obtained from pt. continue to favor palliative consult to discuss goals of care as well. I am concerned her uremic sx and volume overload may hit critical level if we discuss much longer w/o at least preparing for dialysis. today w/ worsening creatinine, chemistries; borderline vol status -Monitor input output strictly >cont dialysis diet, FR 1.2L -placed both palliative consult (to discuss goals of care further) as well as vascular consult (for tunnelled dialysis catheter) -defer to primary service to optimize care for depression and anxiety - long hx of psych dxs and may need psych consultation -Daily BMP -Continue Lasix at current dose; metolazone on hold (2) Hyponatremia: Due to volume overload and further worsening despite maximal diuretics. We will continue diuretics and monitor sodium daily. Fluid restriction of 1.2 L daily ordered. (3) Hyperkalemia: K 5.8 today > renal diet and dialysis; daily bmp; cardiac nurse Present on Admission?: Yes Admission and Anticipated Discharge Date Admission Date: March 08, 2020 Subjective seen and evaluated about 0845; N overnight and emesis this am. no sob; ongoing weeping/bleeding LE edema L > R; no sob Review of Systems Review of Systems: All systems reviewed & are unremarkable except as noted in HPI & below Physical Exam 2 Constitutional: well developed, well nourished, + frail appearing and c ooperative; no acute distress and not ill appearing Eyes: EOM intact bilaterally ENMT: Ears: no external ear abnormality Nose: no external nose abnormality Mouth: + dry oral mucous membranes Neck: no nuchal rigidity Respiratory: normal respiratory effort Auscultation: lungs clear to auscultation bilaterally and + diminished lung sounds (bibasilar) Cardiovascular: Rate/Rhythm: regular rate and regular rhythm Extremities: + edema (2-3+ BLE wrapped L>R) Gastrointestinal (Abdomen): Inspection/Auscultation: normal bowel sounds Percussion/Palpation: abdomen soft; abdomen nontender Musculoskeletal: Extremities: strength 5/5 throughout Skin: no rashes, warm and dry Psychiatric: Orientation: alert and oriented x 3 Eye Contact: good eye contact Speech: normal rate/rhythm/volume of speech Affect: + anxious affect Genitourinary: ortiz w/ yellow urine Results & Data ([facility]) Vital Signs (Past 12 Hours) Vital Signs Temp Pulse Pulse Resp BP Pulse Ox 03/15/20 09:36 37 C 79 18 145/63 H 91 03/15/20 08:32 36.6 C 80 18 135/58 L 91 03/15/20 07:02 36.8 C 79 18 121/63 92 03/15/20 03:56 36.6 C 80 18 147/65 H 91 03/15/20 00:05 36.4 C L 75 17 135/70 94 Laboratory Results 03/15/20 07:43 03/15/20 07:43
[2020-03-15] MEDS: ONDANSETRON INJ 2 MG/ML 2 ML VIAL IV PRN (10:11)
--- NOTE | 2020-03-15 10:26 | Operative Report ---
Post Operative Report Pre & Post Diagnosis Operation Date: 03/15/20 10:25 Pre-Op Diagnosis: Acute Kidney Injury Post-Op Diagnosis: Acute Kidney Injury I identified the patient and participated in the time-out.: Yes Procedure Operation Date: 03/15/20 10:25 Actual Procedures p Insertion of Perm Catheter, Right Internal Jugular Approach, Ultrasound Local ization of Right Internal Jugular Vein, Fluoroscopy for Positioning; Moderate Sedation From 1005 to 1026(Right) - Johan Rivers MD Surgeon Johan Rivers MD Twisting Frame Changer None Estimated Blood Loss 2 Findings Consistent with Post-Op Diagnosis Specimens None Anesthesia Type RN Sedation Complications none Disposition Accompanied Patient To Recovery: No Disposition: Recovery Room Indications This is a 84-year-old female whose had chronic renal sufficiency for some time and now is in need of dialysis for acute kidney injury on top of the chronic renal failure. PermCath was recommended. This was discussed with her the patient and her daughter. Both understood the risks options and benefits and agreed to go ahead with this procedure. Description of Procedure Patient was taken to the angio suite and placed in the supine position. The right side of the neck and chest wall were prepped and draped in a sterile manner. The patient was identified and a timeout performed. Local anesthesia was then administered to the appropriate areas of the neck and chest wall. Ultrasound was then used to locate the right internal jugular vein. The vein compressed easily, had no filing defects, and was patent. The vein was then punctured under direct ultrasound imaging. A guidewire was then passed centrally under fluoroscopic imaging. A stab wound was then made in the anterior chest wall and a 19 cm permcath was passed from the stab wound on the chest wall to the puncture site on the neck. The puncture site was then dilated till the 14Fr peel away sheath was inserted. The permcath was then inserted through the sheath to a central position in the distal superior vena cava. The peel away sheath was then removed. The catheter was then sutured in place using nylon sutures. The puncture was then closed using a 4-0 Vicryl subcuticular suture. Dermabond was used for a dressing on the puncture site. Both ports aspirated and flushed easily and were then packed with heparin. A sterile d ressing was applied to the catheter. The patient left the operation room in satisfactory condition and tolerated the procedure well. All needle and sponge counts were correct at the end of the procedure. I attest to the content of the Intraoperative Record and any orders documented therein. Any exceptions are noted below.
--- NOTE | 2020-03-15 10:26 | Post Anesthesia Assessment ---
Date of Service March 15, 2020 Post Sedation Assessment Vital Signs Temp Pulse Pulse Pulse Resp BP Pulse Ox 03/15/20 10:21 76 14 138/66 99 03/15/20 10:20 76 14 138/66 99 03/15/20 10:15 75 15 121/76 100 03/15/20 10:10 74 15 155/74 H 100 03/15/20 10:05 78 18 165/72 H 100 03/15/20 10:00 82 18 178/72 H 100 03/15/20 09:36 37 C 79 18 145/63 H 91 03/15/20 08:32 36.6 C 80 18 135/58 L 91 03/15/20 07:02 36.8 C 79 18 121/63 92 03/15/20 03:56 36.6 C 80 18 147/65 H 91 03/15/20 00:05 36.4 C L 75 17 135/70 94 03/14/20 19:41 36.5 C 72 18 168/71 H 97 03/14/20 10:44 36.4 C L 73 16 155/68 H 97 Recovery Score Activity: Moves 4 extremities Respiration: Deep Breath/Cough Circulation: +/-20% PreAnes Value Consciousness: Fully Awake Oxygen Saturation: O2 needed for >90% Post Anesthesia Score: 9 Discharge Sedation Level of Care: Fast Track Phase II Post Sedation Plan On clinical assessment, the patient appears to have tolerated the sedation without complications. Patient is recovering as anticipated. Patient will continue to be monitored by nursing and may be discharged when sedation discharge criteria are met per below protocol. Upon Completions of procedure up to 15 minutes continue every 5 minute vital signs and the P.A.R. score; then discharge to a Phase I or Fast Track to Phase II per the following guidelines: * Discharge Patient to appropriate Phase II area if PAR is 8 or greater or return to pre- procedure baseline. The post - procedure orders will be as di rected. * If PAR score is less than 8 or not return to pre-procedure baseline then patient will follow Phase I monitoring till PAR is reached for Phase II. The Phase I may be done in procedure room or may call to secure a Phase I area. * If naloxone or flumazenil are used for reversal, hold in Phase I for continued monitoring from when last reversal dose was given for a minimum of 60 minutes or longer pending the nurse and/or physician discretion of patient condition before discharge to Phase II. Please call the Sedation Physician to re-evaluate and complete post-note for discharge to Phase II area. Do NOT discharge from procedure sedation or Phase 1 until post- sedation evaluation note is complete by procedure /sedation MD Sedation Discharge Instructions to be given to the patient at discharge to home.
[2020-03-15] MEDS: CHOLECALCIFEROL 1,000 UNITS 25 MCG TAB PO SCH (10:48)
[2020-03-15] MEDS: ZINC SULFATE 220 MG CAPSULE PO SCH (10:49)
[2020-03-15] MEDS: PANTOprazole 40 MG TAB PO SCH (10:49)
[2020-03-15] MEDS: ESCITALOPRAM OXALATE 10 MG TAB PO SCH (10:49)
[2020-03-15] MEDS: MAGNESIUM OXIDE 400 MG TAB PO SCH ×3 (10:49→20:19)
[2020-03-15] MEDS: CALCIUM 600MG + VIT D 400 IU TAB PO SCH (10:49)
[2020-03-15] MEDS: buPROPion SR 100 MG TABCR PO SCH ×2 (10:49→20:19)
[2020-03-15] MEDS: ARIPIprazole 1 MG/ML ORAL SOLN 150 ML BTL PO SCH (10:49)
--- NOTE | 2020-03-15 11:17 | Psychiatric Consultation ---
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 1928–1983 Stop: 04/08/20 11:29 Last Admin: 03/15/20 10:49 Dose: 220 mg Documented by: [id number] Admin: 03/14/20 11:58 Dose: 220 mg Documented by: [id number] Admin: 03/13/20 11:48 Dose: 220 mg Documented by: [id number] Admin: 03/12/20 08:32 Dose: 220 mg Documented by: [id number] Admin: 03/11/20 11:41 Dose: 220 mg Documented by: [id number] Admin: 03/10/20 11:22 Dose: 220 mg Documented by: [id number] Admin: 03/09/20 11:38 Dose: 220 mg Documented by: [id number] Coding Level of Care Code 84244 U Intl Hosp Care Lvl 2
[2020-03-15] MEDS ORDERED: SODIUM CHLORIDE 0.9% 1000ML 1,000 ML IV PRN (11:48)
--- NOTE | 2020-03-15 12:58 | Palliative Care Consultation ---
Date of Consultation March 15, 2020 Assessment & Plan (1) Palliative care encounter: This is an 84-year-old female who was admitted to the [facility] on 03/04/20 s/p fall and BARBARA with chronic anemia. She was transfered to the [facility] with worsening renal function and hyperkalemia. Upon arrival, the patient was found to have increased creatinine (baseline 1.9, now 5.61)and a climbing Potassium level, currently 5.8. The patient overall was having low urine output and not responding to Lasix IV with continued signs of overload. Additional PMH includes CVA, Fe+ deficiency anemia, HTN, UTI, DM2, and others. Ultimately, conversation was held with the patient and her duaghter regarding pursuing catheter placement for hemodialysis access. The hospitalist was able to discuss with the patient and daughter who did ultimately decide to pursue trial hemodialysis. This decision has proven to be anxiety-provoking for the patient .She states that she does not want to pursue dialysis, but seeing her 11 grandchildren and 13 great grand-children is very important to her and she is willing to try it 'for them'. Palliative Care has been consulted to discuss goals of care. -I met with the patient in room 237. Patient was sitting upright with her eyes closed in no apparent distress. No family at the bedside. -patient woke easily and was AAOx3. Patient expressed that she just had a procedure today so that she can start dialysis. She said she was not sure if this was the right decision, but she is willing to try as she does not 'want to yet'. -I discussed that I think it is reasonable to try dialysis and see how it affects her lifestyle and quality of life. -I stated that quality of life is different for every person and only she will know how to proceed once she does it. -She explained she has multiple grand and great grandchildren that she wants to see. She lives with her , who she says, sometimes swears at her, if she doesn't 'move fast enough'. -I discussed that trialing hemodialysis for a month or two would be a good starting point to see how it affects her quality of life. -She is soft spoken and sweet. Psych did see her today for further evaluation of her anxiety and depression. She will proceed with uotpatient individuaized therapy and will follow with Dr. Art (reba psych) for further medication changes. -We discussed Code Status and for now the patient will think about this, remain a full code for now. -PPS: 30% Thank you for involving the palliative care service, should you require further assistance, please do not hesitate to contact us. (2) Pleural effusion: (3) CVA (cerebral vascular accident): (4) Anemia due to chronic kidney disease: Chronic kidney disease stage: stage 3 (moderate) Qualified Code(s): N18.3 - Chronic kidney disease, stage 3 (moderate); D63.1 - Anemia in chronic kidney disease (5) Chronic diastolic CHF (congestive heart failure): (6) CAD (coronary artery disease): Coronary Disease-Associated Artery/Lesion type: [place] artery [place] vs. transplanted heart: [place] heart Associated angina: without angina Qualified Code(s): I25.10 - Atherosclerotic heart disease of [place] coronary artery without angina pectoris (7) Dehydration: (8) Hyperkalemia: History of Present Illness Reason for Consultation: Goals of care Requesting Physician: Dr. Rebolledo Attending Physician: Patrice Rebolledo MD History of Present Illness This is an 84-year-old female who was admitted to the [facility] on 03/04/20 s/p fall and BARBARA with chronic anemia. She was transfered to the [facility] with worsening renal function and hyperkalemia. Upon arrival, the patient was found to have increased creatinine (baseline 1.9, now 5.61)and a climbing Potassium level, currently 5.8. The patient overall was having low urine output and not responding to Lasix IV with continued signs of overload. Additional PMH includes CVA, Fe+ deficiency anemia, HTN, UTI, DM2, and others. Ultimately, conversation was held with the patient and her duaghter regarding pursuing catheter placement for hemodialysis access. The hospitalist was able to discuss with the patient and daughter who did ultimately decide to pursue trial hemodialysis. This decision has proven to be anxiety-provoking for the patient .She states that she does not want to pursue dialysis, but seeing her 11 grandchildren and 13 great grand-children is very important to her and she is willing to try it 'for them'. Palliative Care has been consulted to discuss goals of care. Please see A/P for further details. Thank you for involving the palliative care team with this patient. Allergies Allergy/AdvReac Type Severity Reaction Status Date / Time No Known Allergies Allergy Verified 01/10/20 18:46 Home Medications Home Medications Medication Instructions Recorded Confirmed Type calcium carbonate [Calcium 600] 600 mg PO QDL 08/22/18 01/10/20 History carvedilol 25 mg PO AMHS 08/22/18 01/10/20 History clopidogrel [Plavix] 75 mg PO QAM 08/22/18 01/10/20 History magnesium oxide 400 mg PO TID 08/22/18 01/10/20 History tramadol 50 mg PO HS PRN 08/22/18 01/10/20 History vitamin A 10,000 unit PO QAM 08/22/18 01/10/20 History acetaminophen [Tylenol Extra 500 - 1,000 mg PO Q6H PRN 12/20/18 01/10/20 History Strength] torsemide See Rx Instructions .ROUTE .COMPLEX 12/20/18 01/10/20 History Lantus U-100 Insulin 15 unit SUBCUT QAM 01/10/20 01/10/20 History Vitron-C 1 tab PO QDL 01/10/20 01/10/20 History albuterol sulfate 2 puff INHALATION QID 01/10/20 01/10/20 History aripiprazole [Abilify] 1 mg PO QAM 01/10/20 01/10/20 History bupropion HCl [Wellbutrin SR] 100 mg PO BID 01/10/20 01/10/20 History cholecalciferol (vitamin D3) 125 mcg PO QAM 01/10/20 01/10/20 History [Vitamin D3] docusate sodium 100 mg PO AMHS 01/10/20 01/10/20 History pantoprazole 40 mg PO QAM 01/10/20 01/10/20 History polyethylene glycol 3350 [Miralax] 17 g PO DAILY PRN 01/10/20 01/10/20 History semaglutide 1 mg SUBCUT WK 01/10/20 01/10/20 History zinc sulfate [Zinc-220] 220 mg PO QDL 01/10/20 01/10/20 History Lexapro 10 mg PO DAILY 03/08/20 03/08/20 History hydralazine 50 mg PO TID 03/08/20 03/08/20 History levothyroxine 200 mcg PO DAILY 03/08/20 03/08/20 History Patient History Medical History Anemia due to chronic kidney disease CAD (coronary artery disease) Cardiac cath 2011 demonstrated nonobstructive disease Chronic diastolic CHF (congestive heart failure) Chronic kidney disease (CKD), stage III (moderate) CVA (cerebral vascular accident) Depression Diabetes mellitus, type II Diabetic polyneuropathy Dyslipidemia GERD (gastroesophageal reflux disease) History of pleural effusion With multiple thoracentesis Hypertension Hypothyroidism Iron deficiency anemia Osteoporosis Venous insufficiency of both lower extremities Surgical History S/P patent foramen ovale closure Status post cataract extraction Status post cholecystectomy Status post hysterectomy Status post mitral valve repair Family History Other Family history non-contributory Social History Smoking Status: Never smoker Second Hand Exposure: Yes (from parents); Do You Dip or Chew Tobacco: No; Hx Alcohol Use: Yes Alcohol type: beer Hx Substance Use: No Preferred Language: Croatian Communication Ability: Effective Plate Driller Required: No marital status: Current Living Situation: Spouse Current Living Situation Comment: pt states swears at her a lot and it gets to her current occupational status: retired How many Children do You have: 3 Other Information That Helps Us Care for You: No Feels Safe at Home: Yes Safety Concerns: Feels Safe At This Time Assistive Devices: Denture - Upper and Glasses Review of Systems Review of Systems: All systems reviewed & are unremarkable except as noted in HPI & below Physical Exam Constitutional: + ill appearing, + frail appearing and cooperative Respiratory: normal respiratory effort Auscultation: + diminished lung sounds Cardiovascular: Heart Sounds: normal S1, normal S2 and + murmur Extremities: + edema (Bilateral LE) Gastrointestinal (Abdomen): normal bowel sounds, soft, nontender, no hepatosplenomegaly Skin: + pallor Psychiatric: A+Ox3, euthymic affect Genitourinary: indwelling ortiz catheter in place. yellow urine with sediment Results & Data ([facility]) Vital Signs (Past 12 Hours) Vital Signs Temp Pulse Pulse Pulse Resp BP Pulse Ox 03/15/20 11:42 75 150/67 H 96 03/15/20 11:12 72 138/73 95 03/15/20 10:57 149/71 H 03/15/20 10:45 36.5 C 75 20 139/66 94 03/15/20 10:42 77 133/68 94 03/15/20 10:26 77 16 114/47 L 98 03/15/20 10:21 76 14 138/66 99 03/15/20 10:20 76 14 138/66 99 03/15/20 10:15 75 15 121/76 100 03/15/20 10:10 74 15 155/74 H 100 03/15/20 10:05 78 18 165/72 H 100 03/15/20 10:00 82 18 178/72 H 100 03/15/20 09:36 37 C 79 18 145/63 H 91 03/15/20 08:32 36.6 C 80 18 135/58 L 91 03/15/20 07:02 36.8 C 79 18 121/63 92 03/15/20 03:56 36.6 C 80 18 147/65 H 91 PG Care Time/CCT Total # of Minutes Spent Total Time Spent with Patient: Total time spent is greater than 50% in coordination of care (as documented) at patient's floor/unit and/or counseling patient: 70 Coding Level of Care Code 50833 Inpt Consult Level 3 Diagnoses Palliative care encounter Z51.5 Pleural effusion J90 CVA (cerebral vascular accident) I63.9 Anemia due to chronic kidney disease N18.3; D63.1 Chronic kidney disease stage: stage 3 (moderate) Chronic diastolic CHF (congestive heart failure) I50.32 CAD (coronary artery disease) I25.10 Coronary Disease-Associated Artery/Lesion type: [place] artery [place] vs. transplanted heart: [place] heart Associated angina: without angina Dehydration E86.0 Hyperkalemia E87.5 Time Spent (min) 70 Time Spent Midlevel Total time spent 70 minutes with > 50% oF that time spent assessing the patient, discussing goals of care with the patient and collaborating with IDT.
[2020-03-15 16:09] LABS: Hepatitis B Surface Ab Quant < 3.10 mIU/mL (>or=10mIU/mL Immune); Hepatitis B Surface Antibody Non-Immune
[2020-03-15 16:19] LABS: Hepatitis B Surface Antigen Neg (Neg)
--- NOTE | 2020-03-15 18:37 | Hospitalist Progress Note ---
Date of Service March 15, 2020 Assessment & Plan (1) BARBARA (acute kidney injury): ASSESSMENT AND PLAN: This is an 84-year-old female who was admitted to [facility] on 03/04/2020 with a fall and found to have acute kidney injury and anemia, status post PRBC transfusion. Was transferred because of worsening renal function and hyperkalemia. 1. Acute kidney injury on chronic kidney disease stage III likely from ATN - baseline creatinine around 1.9 to 2 - crea not improving Low urine output 03/15/2020 status post dialysis Cath placement , first hemodialysis session Continue Lasix IV for volume overload Palliative care and Psych consulted 2. Hyperkalemia - potassium was 5.8. Received insulin, dextrose, and Kayexalate. - Resolved Lasix ordered 3. Diabetes. Continue with Lantus insulin sliding scale. 4. Hypothyroidism. Continue Synthroid. 5. Gastroesophageal reflux disease, continue PPI. 6. Chronic diastolic congestive heart failure (+) Acute Exacerbation - Lasix ordered Volume management now for HD 7. Hypertension. Blood pressure elevated Amlodipine 5 mg p.o. daily started--Improving Hydralazine IV PRN ordered Continue her Coreg and hydralazine 50 mg 3 times daily Monitor 8. Lower extremity infection of the toes with methicillin-resistant Staphylococcus aureus - Completed course of IV clindamycin - Wound care consulted 9. Coronary artery disease, mild nonobstructive CAD on catheterization in 2011. Continue beta opal, Plavix, stable. 10. History of mild obstructive sleep apnea and nocturnal hypoxemia. Oxygen at bedtime. 11. Anemia of chronic kidney disease, iron deficiency anemia, on iron supplements. Received 2 units of PRBC at another hospital. - Hg 9.7 --> 9.3 12. Depression and anxiety. Continue Abilify, Wellbutrin. 13. History of cerebrovascular accident -- on aspirin and Plavix. 14. History of chronic diastolic heart failure with recurrent pleural effusions requiring multiple thoracenteses. - CXR: 1. Cardiomegaly with pulmonary vascular congestion and interstitial coarsening suggestive of pulmonary edema. 2. Left basilar opacities suggest atelectasis versus pneumonitis. 3. Trace right pleural effusion. 4. Emphysema. - Echocardiogram: Preserved ejection fraction - management per above 15. History of severe mitral regurgitation due to prolapse of P2 segment, status post mitral valve repair with resection of the P2 leaflet and placement of dura and mitral valve annuloplasty. Patent foramen ovale, status post surgical closure at the time of the mitral valve repair. 16. Chronic lymphedema and venous insufficiency of both lower extremities. 17. History of rheumatic fever as a child. 18. History of prolonged QT. 480 --> 478 19. Deep venous thrombosis prophylaxis. heparin subQ Disposition pending management of acute renal failure, etc. in progress PT/OT eval ordered May need to transition to shelter facility Admission and Anticipated Discharge Date Admission Date: March 08, 2020 Subjective Follow-up for acute renal failure, volume overload, etc. Status post this catheter placement today Status post first hemodialysis session today Seen after hemodialysis Sitting up in bed, comfortable, appears somewhat weak States she feels tired Denies shortness of breath, nausea, dizziness, chest pain Tolerating her dinner well No other symptom Review of Systems Review of Systems: All systems reviewed & are unremarkable except as noted in Subjective Physical Exam Physical Exam: General- oriented x 3, not in distress, speaks in sentences with no effort or accessory muscle use Eyes- anicteric Neck- no JVD Lungs-mildly decreased breath sounds at the bases, no crackles or wheezing Heart- normal rate, regular rhythm; no murmurs Abdomen- normal bowel sounds, nondistended, soft, nontender Extremities- grade 2 lower leg edema, no calf tenderness Neuro- alert, oriented x 3; no gross focal neurologic deficits Skin- warm & dry Results & Data Results & Data ([facility]) Vital Signs (Past 12 Hours) Vital Signs Temp Pulse Pulse Pulse Resp BP BP 03/15/20 16:41 36.6 C 79 16 03/15/20 16:20 36.5 C 82 138/58 L 03/15/20 16:07 82 133/57 L 03/15/20 15:40 89 125/56 L 03/15/20 15:20 82 137/63 03/15/20 15:00 81 153/65 H 03/15/20 14:40 77 149/64 H 03/15/20 14:20 79 146/66 H 03/15/20 14:07 79 153/64 H 03/15/20 13:50 36.5 C 79 75 03/15/20 11:42 75 03/15/20 11:12 72 03/15/20 10:57 03/15/20 10:45 36.5 C 75 20 03/15/20 10:42 77 03/15/20 10:26 77 16 03/15/20 10:21 76 14 03/15/20 10:20 76 14 03/15/20 10:15 75 15 03/15/20 10:10 74 15 03/15/20 10:05 78 18 03/15/20 10:00 82 18 03/15/20 09:36 37 C 79 18 03/15/20 08:32 36.6 C 80 18 03/15/20 07:02 36.8 C 79 18 BP Pulse Ox 03/15/20 16:41 125/63 92 03/15/20 16:20 03/15/20 16:07 03/15/20 15:40 03/15/20 15:20 03/15/20 15:00 03/15/20 14:40 03/15/20 14:20 03/15/20 14:07 03/15/20 13:50 03/15/20 11:42 150/67 H 96 03/15/20 11:12 138/73 95 03/15/20 10:57 149/71 H 03/15/20 10:45 139/66 94 03/15/20 10:42 133/68 94 03/15/20 10:26 114/47 L 98 03/15/20 10:21 138/66 99 03/15/20 10:20 138/66 99 03/15/20 10:15 121/76 100 03/15/20 10:10 155/74 H 100 03/15/20 10:05 165/72 H 100 03/15/20 10:00 178/72 H 100 03/15/20 09:36 145/63 H 91 03/15/20 08:32 135/58 L 91 03/15/20 07:02 121/63 92
[2020-03-16] MEDS: LEVOTHYROXINE SODIUM 200 MCG TABLET PO SCH (05:48)
[2020-03-16 06:25] LABS: Basophils # (auto) 0.03 K/uL (0-0.2); Basophils % (auto) 0.4 %; Eosinophils # (auto) 0.08 K/uL (0-0.5); Hematocrit (blood only) 24.9 % (37-47); Hemoglobin 7.9 g/dL (12.0-16.0); Immature Granulocytes # (auto) 0.02 K/uL (0.00-0.02); Immature Granulocytes % (auto) 0.2 %; Lymphocytes # (auto) 0.69 K/uL (1.2-3.4); Lymphocytes % (auto) 8.2 %; Mean Corpuscular Hemoglobin 28.6 pg (25-34); Mean Corpuscular Hgb Conc 31.7 g/dL (32-36); Mean Corpuscular Volume 90.2 fL (80-100); Mean Platelet Volume 8.5 fL (7.4-10.4); Monocytes # (auto) 0.75 K/uL (0.11-0.59); Monocytes % (auto) 8.9 %; Neutrophils # (auto) 6.84 K/uL (1.4-6.5); Neutrophils % (auto) 81.3 %; Platelet Count 317 K/uL (130-400); RDW Coefficient of Variation 16.2 % (11.5-14.5); RDW Standard Deviation 53.6 fL (36.4-46.3); Red Blood Count 2.76 M/uL (4.2-5.4); White Blood Count 8.41 K/uL (4.8-10.8)
[2020-03-16 06:53] LABS: RBC Morphology Unremarkable
[2020-03-16 07:21] LABS: Albumin Level 2.2 gm/dl (3.4-5.0); BUN Creatinine Ratio 13.9 (10-20); Creatinine Clr Calc Pharmacy 8.9 ml/min; Est GFR (African American) 9.3; Phosphorus 6.2 mg/dl (2.5-4.9); Potassium 5.4 mmol/L (3.5-5.1)
[2020-03-16] MEDS ORDERED: HEPARIN SOD (PORCINE) 1000 UNIT/ML 10 ML VIAL IV ONE (07:27)
[2020-03-16] MEDS ORDERED: EPOETIN ALFA 4,000 UNIT/ML VIAL IV ONE (07:27)
[2020-03-16] MEDS ORDERED: SODIUM CHLORIDE 0.9% 1000ML 1,000 ML IV PRN (07:27)
[2020-03-16] MEDS: HEPARIN SOD 5,000 UNIT/0.5 ML VIAL SQ SCH ×2 (08:36→20:37)
[2020-03-16] MEDS: MAGNESIUM OXIDE 400 MG TAB PO SCH ×3 (08:36→20:47)
[2020-03-16] MEDS: DOCUSATE SODIUM 100 MG CAP PO SCH ×2 (08:36→20:37)
[2020-03-16] MEDS: FUROSEMIDE 100 MG in SYRINGE 0 ML IV SCH ×2 (08:36→20:48)
[2020-03-16] MEDS: CHOLECALCIFEROL 1,000 UNITS 25 MCG TAB PO SCH (08:37)
[2020-03-16] MEDS: carvediloL 12.5 MG TAB PO SCH ×2 (08:37→20:47)
[2020-03-16] MEDS: hydrALAZINE TAB 50 MG TAB PO SCH ×3 (08:37→20:48)
[2020-03-16] MEDS: buPROPion SR 100 MG TABCR PO SCH (08:37)
[2020-03-16] MEDS: ARIPIprazole 1 MG/ML ORAL SOLN 150 ML BTL PO SCH (08:38)
[2020-03-16] MEDS: PANTOprazole 40 MG TAB PO SCH (08:38)
[2020-03-16] MEDS: amLODIPine BESYLATE 5 MG TAB PO SCH (08:38)
[2020-03-16] MEDS: ESCITALOPRAM OXALATE 10 MG TAB PO SCH (08:38)
[2020-03-16] MEDS: INSULIN GLARGINE SOLOSTAR 100 UNITS/ML 3 ML PEN SQ SCH (08:43)
[2020-03-16] MEDS: INSULIN ASPART 100 UNITS/ML 3 ML PEN SC SCH ×4 (08:44→20:50)
[2020-03-16] MEDS: CLOPIDOGREL BISULFATE 75 MG TAB PO SCH (08:45)
--- NOTE | 2020-03-16 10:00 | Dialysis Progress Note ---
Date of Service March 16, 2020 Assessment & Plan (1) BARBARA (acute kidney injury): Patient with acute kidney injury on CKD 4 w/ baseline eGFR about 20. She has CKD stage IV at baseline. Creatinine peaked on 03/15 at 5.6 and BUN of 86. Chest x-ray still showing pulmonary edema a few days back. oliguric. I remain concerned her uremic sx and volume overload may hit critical levels w/o di alysis. today w/ tx improvement noted in creatinine, chemistries; borderline vol status -Monitor input output strictly>>oliguric currently even on max dose lasix >cont dialysis diet, FR 1.2L -palliative recs/discussion much appreciated/reviewed; psych has seen pt as well -Daily BMP -Continue Lasix at current dose; metolazone on hold -would continue ortiz one more day >>>for discharge dispo, remains acute dialysis (not chronic though this is possible dx longer term) and will be 3 days weekly after d/c -next tx tomorrow then recheck 03/18 but plan tentatively for 03/19 -gave low dose epo today 4K units; iron studies ordered (2) Hyponatremia: Due to volume overload and further worsening despite maximal diuretics. We will continue diuretics and monitor sodium daily-improved today w/ 500 fluid removal yesterday. Fluid restriction of 1.2 L daily ordered. (3) Hyperkalemia: K 5.4 today > renal diet and dialysis; daily bmp; lunchroom monitor Admission and Anticipated Discharge Date Admission Date: March 08, 2020 Subjective exhausted after TDC placement/first tx yesterday. tolerated first tx well. no pain, no sob; unchanged edema Review of Systems Review of Systems: All systems reviewed & are unremarkable except as noted in HPI & below Physical Exam Constitutional: well developed, well nourished, + frail appearing and cooperative; no acute distress and not ill appearing Eyes: EOM intact bilaterally ENMT: Ears: no external ear abnormality Nose: no external nose abnormality Mouth: + dry oral mucous membranes Neck: no nuchal rigidity Respiratory: normal respiratory effort Auscultation: lungs clear to auscultation bilaterally and + diminished lung sounds (on anterior exam) Cardiovascular: Rate/Rhythm: regular rate and regular rhythm Extremities: + edema (1-2++ BLE wrapped L>R) Gastrointestinal (Abdomen): Inspection/Auscultation: normal bowel sounds Percussion/Palpation: abdomen soft; abdomen nontender Musculoskeletal: Extremities: strength 5/5 throughout Skin: no rashes, warm and dry Trauma: + abrasion (RLE pretibial) Psychiatric: Orientation: alert and oriented x 3 Eye Contact: good eye contact Speech: normal rate/rhythm/volume of speech Affect: + flat affect Results & Data ([facility]) Vital Signs (Past 12 Hours) Vital Signs Temp Pulse Pulse Resp BP Pulse Ox 03/16/20 07:38 36.7 C 76 16 147/70 H 97 03/16/20 03:11 36.9 C 79 16 132/57 L 96 Laboratory Results 03/16/20 06:01 03/16/20 06:01
[2020-03-16] MEDS: HEPARIN SOD (PORCINE) 1000 UNIT/ML 10 ML VIAL IV SCH ×3 (10:15→11:31)
--- NOTE | 2020-03-16 11:32 | Psychiatric Progress Note ---
Date of Service March 16, 2020 Impression / Recommendations Impression Dr. Mary Ann Oglesby was directly involved in review and discussion of the patient's case and participated in medical decision making regarding treatment recommendations. RECOMMENDATIONS: 03/16 - Patient's case reviewed with outpatient psychiatrist, Dr. Pablo. He suggests tapering bupropion, with consideration of discontinuing the medication altogether. Suggestion was made to trial fluoxetine in place of escitalopram as fluoxetine does not require adjustment for renal impairment and may be a more activating medication to target patient's depressive symptoms. - Potential interaction between fluoxetine and clopidogrel was discussed with hospitalist, awaiting thoughts from hospitalist team regarding risk/benefit analysis of initiating fluoxetine for mood. - Reviewed suggestions with patient and her daughter, Neto, who are in agreement with plan. They are aware of upcoming appointment scheduled with Dr. Pablo to review response to medication adjustments and evaluate need for any further changes. Interval History Identifying Information 84-year-old female admitted medically on 03/08/2020 after being transferred from [facility] due to requiring nephrology services to assist with treatment of acute kidney injury with hyperkalemia - stage III chronic kidney disease, and numerous other medical issues. Psychiatric consultation has been requested to evaluate patient for depression, seen today to follow-up on recommendations after coordinating care with patient's psychiatrist. Chief Complaint "I'm ok. Feeling pretty tired." Review of Systems Notes Constitutional: reports fatigue Cardiovascular: denied Respiratory: denied Gastrointestinal: denied Neurological: denied Psychiatric: denies symptoms other than stated above Total of at least 10 systems reviewed, pertinent positives as above and in HPI. Subjective Subjective Patient was seen & assessed and interval progress reviewed with supervising psychiatrist and psychiatric nurse liaison. Patient's case was discussed with her outpatient psychiatrist with her permission and suggestions were provided based on patient's psychiatric history and new updates regarding decision to pursue dialysis. Pt is joined by her daughter today, for whom patient provides verbal consent to be present during interview. Pt reports that she is feeling tired today - actively receiving dialysis treatment during our conversation, but agreeable with interview. Pt was provided with medication recommendations offe red by Dr. Pablo. Reviewed option to continue medication regimen unchanged until her next outpatient psychiatry appointment or to begin adjustments at this time. Pt and daughter discussed suggestions proposed (tapering bupropion to discontinuation and replacing escitalopram with fluoxetine to target depressive symptoms with benefit of fluoxetine not requiring dosing adjustments for renal impairment). Pt and daughter reported she had been on fluoxetine 30+ years ago, but they are unsure of response. Pt was agreeable to beginning medication adjustments while still in the hospital setting. She denied other needs or concerns at this time. Daughter also denied questions at this time. Procedures Performed Operation Date: 03/15/20 10:25 Actual Procedures p Insertion of Perm Catheter, Right Internal Jugular Approach, Ultrasound Localization of Right Internal Jugular Vein, Fluoroscopy for Positioning; Moderate Sedation From 1005 to 1026(Right) - Johan Rivers MD Summary of Past History Collateral information obtained from patient's outpatient psychiatrist, Dr. Angel Pablo. He reports he started seeing the patient only within the last few months. He states she has failed to respond to augmentation of SSRI with Wellbutrin , and therefore Abilify was initiated. Abilify was increased to 2mg in 12/2019 to target depressive symptoms. In light of dialysis treatment, it was suggested the Wellbutrin be tapered and eventually discontinued . He also suggested consideration of switching from escitalopram to fluoxetine which does not require adjustment for dialysis and may be more activating. It was suggested these changes could be presented during patient's current hospitalization, or explored further at her outpatient appointments following discharge. Physical Exam Psychiatric Orientation: alert (though appearing tired) and cooperative Apperance: appropriately dressed and appropriately groomed Appearing uncomfortable and tired. Eye Contact: + fair eye contact Motor Behavior: no abnormal motor movements (observed while laying in bed) Speech: normal rate/rhythm/volume of speech (limited engagement in conversation due to level of fatigue ) Affect: + depressed affect and + blunted affect Mood: + depressed mood and + anxious mood Thought Process: goal directed thought process Thought Content: reality based without delusions; no hopelessness Suicidal Thoughts: denies suicidal thoughts Homicidal Thoughts: denies homicidal thoughts Hallucinations: no auditory hallucinations and no visual hallucinations Cognition: attention grossly intact and language grossly intact Insight: + fair insight Judgement: + fair judgement Vital Signs (Past 24 Hours) Last Vital Signs Temp 36.7 C 03/16/20 07:38 Pulse 76 03/16/20 07:38 Resp 16 03/16/20 07:38 BP 147/70 H 03/16/20 07:38 Pulse Ox 97 03/16/20 07:38 Results & Data ([facility]) Laboratory Results Laboratory Results - last 24 hr 03/15/20 03/15/20 03/15/20 11:39 15:20 16:39 WBC RBC Hgb Hct MCV MCH MCHC RDW Std Deviation RDW Coeff of Rosalba Plt Count MPV Immature Gran % (Auto) Neut % (Auto) Lymph % (Auto) [place] % (Auto) Eos % (Auto) Baso % (Auto) Neut # (Auto) Lymph # (Auto) [place] # (Auto) Eos # (Auto) Baso # (Auto) Immature Gran # (Auto) RBC Morphology Sodium Potassium Chloride Carbon Dioxide Anion Gap BUN Creatinine Est Cr Clr Drug Dosing Est GFR ( Amer) Est GFR (Non-Af Amer) BUN/Creatinine Ratio Glucose POC Glucose 147 H 121 H Calcium Phosphorus Albumin Nasal Screen MRSA (PCR) Hep Bs Antigen Neg Hep Bs Antibody Non-Immune Hep Bs Antibody, Quant < 3.10 L 03/15/20 03/15/20 03/16/20 20:10 21:06 06:01 WBC 8.41 RBC 2.76 L Hgb 7.9 L Hct 24.9 L MCV 90.2 MCH 28.6 MCHC 31.7 L RDW Std Deviation 53.6 H RDW Coeff of Rosalba 16.2 H Plt Count 317 MPV 8.5 Immature Gran % (Auto) 0.2 Neut % (Auto) 81.3 Lymph % (Auto) 8.2 [place] % (Auto) 8.9 Eos % (Auto) 1.0 Baso % (Auto) 0.4 Neut # (Auto) 6.84 H Lymph # (Auto) 0.69 L [place] # (Auto) 0.75 H Eos # (Auto) 0.08 Baso # (Auto) 0.03 Immature Gran # (Auto) 0.02 RBC Morphology Unremarkable Sodium Potassium Chloride Carbon Dioxide Anion Gap BUN Creatinine Est Cr Clr Drug Dosing Est GFR ( Amer) Est GFR (Non-Af Amer) BUN/Creatinine Ratio Glucose POC Glucose 166 H Calcium Phosphorus Albumin Nasal Screen MRSA (PCR) Negative Hep Bs Antigen Hep Bs Antibody Hep Bs Antibody, Quant 03/16/20 06:01 WBC RBC Hgb Hct MCV MCH MCHC RDW Std Deviation RDW Coeff of Rosalba Plt Count MPV Immature Gran % (Auto) Neut % (Auto) Lymph % (Auto) [place] % (Auto) Eos % (Auto) Baso % (Auto) Neut # (Auto) Lymph # (Auto) [place] # (Auto) Eos # (Auto) Baso # (Auto) Immature Gran # (Auto) RBC Morphology Sodium 128 L Potassium 5.4 H Chloride 95 L Carbon Dioxide 25 Anion Gap 8.0 BUN 66 H Creatinine 4.74 H* D Est Cr Clr Drug Dosing 8.9 Est GFR ( Amer) 9.3 Est GFR (Non-Af Amer) 8.0 BUN/Creatinine Ratio 13.9 Glucose 120 H POC Glucose Calcium 8.0 L Phosphorus 6.2 H Albumin 2.2 L Nasal Screen MRSA (PCR) Hep Bs Antigen Hep Bs Antibody Hep Bs Antibody, Quant Current Inpatient Medications Current Inpatient Medications: Current Inpatient Medications Acetaminophen (Acetaminophen 325 Mg Tab) 650 mg PO Q4H PRN PRN Reason: Pain or Fever Stop: 04/07/20 20:30 Last Admin: 03/09/20 17:49 Dose: 650 mg Documented by: Albuterol (Albut/Ipratrop 3mg/0.5mg Neb 3 Ml Vial) 3 ml NEB Q2H PRN PRN Reason: Wheezing Stop: 04/09/20 05:26 Last Admin: 03/12/20 07:08 Dose: 3 ml Documented by: Amlodipine Besylate (Amlodipine Besylate 5 Mg Tab) [facility] [place] Stop: 04/10/20 19:14 Last Admin: 03/16/20 08:38 Dose: 5 mg Documented by: Aripiprazole (Aripiprazole 1 Mg/Ml Oral Soln 150 Ml Btl) 2 mg PO QAM [facility] Stop: 04/14/20 08:59 Last Admin: 03/16/20 08:38 Dose: 2 mg Documented by: Bupropion HCl (Bupropion Sr 100 Mg Tabcr) 100 mg PO BID [facility] Stop: 04/08/20 08:59 Last Admin: 03/16/20 08:37 Dose: 100 mg Documented by: Carvedilol (Carvedilol 12.5 Mg Tab) 12.5 mg PO BID [facility] Stop: 04/10/20 04:59 Last Admin: 03/16/20 08:37 Dose: 12.5 mg Documented by: Clopidogrel Bisulfate (Clopidogrel Bisulfate 75 Mg Tab) 75 [facility] [place] Stop: 04/08/20 08:59 Last Admin: 03/16/20 08:45 Dose: 75 mg Documented by: Dextrose (Dextrose 50% 50 Ml Syringe) 25 - 50 ml IV UD PRN; Protocol PRN Reason: Hypoglycemia Protocol Stop: 04/07/20 21:59 Docusate Sodium (Docusate Sodium 100 Mg Cap) 100 mg PO BID [facility] Stop: 04/08/20 08:59 Last Admin: 03/16/20 08:36 Dose: Not Given Documented by: Docusate Sodium/Ferrous Fumarate (Ferrous Fumarate/Ascorbic Acid 65 Mg Capcr) 65 mg PO QDL [facility] Stop: 04/08/20 11:29 Last Admin: 03/12/20 13:22 Dose: 65 mg Documented by: Escitalopram Oxalate (Escitalopram Oxalate 10 Mg Tab) 10 mg PO DAILY [facility] Stop: 04/08/20 08:59 Last Admin: 03/16/20 08:38 Dose: 10 mg Documented by: Glucagon (Glucagon For Inj 1 Mg Vial) 1 mg IM UD PRN; Protocol PRN Reason: Hypoglycemia Protocol Stop: 04/07/20 21:59 Glucose (Glucose 40% Gel 15 Gm Tube) 15 - 30 gm PO UD PRN; Protocol PRN Reason: Hypoglycemia Protocol Stop: 04/07/20 21:59 Glucose (Glucose 10 Tabs/Tube) 4 - 8 tabs PO UD PRN; Protocol PRN Reason: Hypoglycemia Protocol Stop: 04/07/20 21:59 Heparin Sodium (Porcine) (Heparin Sod 5,000 Unit/0.5 Ml Vial) 5,000 units SQ Q12 [facility] Stop: 04/08/20 08:59 Last Admin: 03/16/20 08:36 Dose: Not Given Documented by: Hydralazine HCl (Hydralazine Tab 50 Mg Tab) 50 mg PO TID [facility] Stop: 04/08/20 08:59 Last Admin: 03/16/20 08:37 Dose: 50 mg Documented by: Hydralazine HCl (Hydralazine Hcl 20 Mg/Ml Vial) 10 mg IV Q6H PRN PRN Reason: hypertension Stop: 04/09/20 15:29 Last Admin: 03/12/20 03:44 Dose: 10 mg Documented by: Furosemide 100 mg/ Syringe 10 mls @ 4 mls/min IV Q12 [facility] Stop: 04/10/20 20:59 Last Admin: 03/16/20 08:36 Dose: 4 mls/min Documented by: Sodium Chloride (Nss 1000ml) 1,000 mls @ 0 mls/hr IV .Q0M PRN PRN Reason: For Hemodialysis Use ONLY Stop: 03/16/20 13:26 Insulin Aspart (Insulin Aspart 100 Units/Ml 3 Ml Pen) 0 units SC ACHS [facility] Stop: 04/08/20 07:29 Last Admin: 03/16/20 08:44 Dose: Not Given Documented by: Insulin Glargine (Insulin Glargine Solostar 100 Units/Ml 3 Ml Pen) 15 units SQ QAM [facility] Stop: 04/08/20 08:59 Last Admin: 03/16/20 08:43 Dose: 15 units Documented by: Levothyroxine Sodium (Levothyroxine Sodium 200 Mcg Tablet) 200 mcg PO DAILYBB [facility] Stop: 04/08/20 06:29 Last Admin: 03/16/20 05:48 Dose: 200 mcg Documented by: Magnesium Oxide (Magnesium Oxide 400 Mg Tab) 400 mg PO TID [facility] Stop: 04/08/20 08:59 Last Admin: 03/16/20 08:36 Dose: 400 mg Documented by: Miscellaneous (Carbohydrates For Hypoglycemia ) 15 - 30 gm PO UD PRN PRN Reason: Hypoglycemia Treatment Stop: 04/07/20 21:59 Multivitamins/Minerals (Calcium 600mg + Vit D 400 Iu Tab) 1 tab PO QDL [facility] Stop: 04/08/20 11:29 Last Admin: 03/15/20 10:49 Dose: 1 tab Documented by: Ondansetron HCl (Ondansetron Inj 2 Mg/Ml 2 Ml Vial) 4 mg IV Q4H PRN PRN Reason: Nausea Stop: 04/14/20 06:17 Last Admin: 03/15/20 10:11 Dose: 4 mg Documented by: Pantoprazole Sodium (Pantoprazole 40 Mg Tab) 40 mg PO QAM [facility] Stop: 04/08/20 08:59 Last Admin: 03/16/20 08:38 Dose: 40 mg Documented by: Polyethylene Glycol (Polyethylene (Miralax) 17 Gm Pack) 17 gm PO DAILY PRN PRN Reason: Constipation Stop: 04/07/20 20:30 Tramadol HCl (Tramadol Hcl 50 Mg Tablet) 50 mg PO HS PRN PRN Reason: leg pain Stop: 04/07/20 23:09 Vitamin D (Cholecalciferol 1,000 Units 25 Mcg Tab) 5,000 units PO QAM [facility] Stop: 04/08/20 08:59 Last Admin: 03/16/20 08:37 Dose: 5,000 units Documented by: Zinc Sulfate (Zinc Sulfate 220 Mg Capsule) 220 mg PO QDL [facility] Stop: 04/08/20 11:29 Last Admin: 03/15/20 10:49 Dose: 220 mg Documented by: Mental Health & Subst Abuse Tx Psychiatrist Name of Psychiatrist: Dr. Angel Pablo @ [facility] Psychiatrist's Date of Appointment with Psychiatrist: 03/24/20 Time of Appointment with Psychiatrist: 11:15 Psychiatrist Release of Information: Obtained, Reviewed and Signed Post Discharge Appointments Primary Care Physician Name Of Family Doctor: Dr. Suzanne Kinsey @ [facility] Release of Information: Obtained, Reviewed and Signed
[2020-03-16] MEDS: CALCIUM 600MG + VIT D 400 IU TAB PO SCH (12:14)
[2020-03-16] MEDS: ZINC SULFATE 220 MG CAPSULE PO SCH (12:14)
[2020-03-16] MEDS: MICONAZOLE NITRATE POWDER 43 GM EXT SCH (20:54)
--- NOTE | 2020-03-16 20:55 | Hospitalist Progress Note ---
Date of Service March 16, 2020 Assessment & Plan (1) BARBARA (acute kidney injury): 1. Acute kidney injury on chronic kidney disease stage III acute oligouric renal failure from ATN-no dialysis dependent nephrology following 03/15/2020 status post dialysis Cath placement cont dialysis while in hospital 2. Hyperkalemia - resolved getting scheduled dialysis as per Nephrology while in patient 3. Diabetes. Continue with Lantus insulin sliding scale. 4. Hypothyroidism. Continue Synthroid. 5. Gastroesophageal reflux disease, continue PPI. 6. Chronic diastolic congestive heart failure (+) Acute Exacerbation/presented with vol overload -on dialysis now 7. Hypertension. Amlodipine 5 mg p.o. daily Hydralazine IV PRN ordered Coreg and hydralazine 50 mg 3 times daily Monitor 8. Lower extremity infection of the toes with methicillin-resistant Staphylococcus aureus - Completed course of IV clindamycin - Wound care consulted 9. Coronary artery disease, mild nonobstructive CAD on catheterization in 2011. Continue beta opal, Plavix, stable. 10. History of mild obstructive sleep apnea and nocturnal hypoxemia. Oxygen at bedtime. 11. Anemia of chronic kidney disease, iron deficiency anemia, on iron supplements. Received 2 units of PRBC at another hospital. - Hg 9.7 --> 9.3 12. Depression and anxiety. Continue Abilify, Wellbutrin./appreciate input form Psychiatry 13. History of cerebrovascular accident -- on aspirin and Plavix. 19. Deep venous thrombosis prophylaxis. heparin subQ Disposition pending will benefit with SNF , pt is refusing needs arrangements for out pt dialysis appreciate input from case menagement Admission and Anticipated Discharge Date Admission Date: March 08, 2020 Subjective awake and alert offers no new complain no complain of SOB , no chest pain or discomfort no fever or chills Physical Exam Physical Exam: General- oriented x 3, not in distress, speaks in sentences with no effort or accessory muscle use Eyes- anicteric Neck- no JVD Lungs-mildly decreased breath sounds at the bases, no crackles or wheezing Heart- normal rate, regular rhythm; no murmurs Abdomen- normal bowel sounds, nondistended, soft, nontender Extremities- grade 2 lower leg edema, no calf tenderness Neuro- alert, oriented x 3; no gross focal neurologic deficits Skin- warm & dry Results & Data Results & Data ([facility]) Vital Signs (Past 12 Hours) Vital Signs Temp Pulse Pulse Pulse Resp BP BP 03/16/20 20:35 36.3 C L 74 18 03/16/20 19:09 36.4 C L 76 18 142/65 H 03/16/20 15:42 36.6 C 73 18 120/63 03/16/20 12:48 36.7 C 68 114/51 L 03/16/20 12:17 36.5 C 66 18 03/16/20 12:00 67 114/47 L 03/16/20 11:40 67 94/43 L 03/16/20 11:20 68 101/48 L 03/16/20 11:00 68 93/45 L 03/16/20 10:40 70 96/40 L 03/16/20 10:20 70 100/47 L 03/16/20 10:00 70 99/46 L 03/16/20 09:40 72 113/48 L 03/16/20 09:20 72 121/56 L 03/16/20 09:10 36.7 C 74 BP Pulse Ox 03/16/20 20:35 119/65 99 03/16/20 19:09 98 03/16/20 15:42 99 03/16/20 12:48 03/16/20 12:17 112/65 98 03/16/20 12:00 03/16/20 11:40 03/16/20 11:20 03/16/20 11:00 03/16/20 10:40 03/16/20 10:20 03/16/20 10:00 03/16/20 09:40 03/16/20 09:20 03/16/20 09:10
[2020-03-17] MEDS: LEVOTHYROXINE SODIUM 200 MCG TABLET PO SCH (05:54)
[2020-03-17 07:23] LABS: Hematocrit (blood only) 25.4 % (37-47); Hemoglobin 7.9 g/dL (12.0-16.0); Mean Corpuscular Hemoglobin 28.6 pg (25-34); Mean Corpuscular Hgb Conc 31.1 g/dL (32-36); Mean Platelet Volume 8.4 fL (7.4-10.4); Platelet Count 319 K/uL (130-400); RDW Coefficient of Variation 16.3 % (11.5-14.5); RDW Standard Deviation 54.8 fL (36.4-46.3); Red Blood Count 2.76 M/uL (4.2-5.4); White Blood Count 6.49 K/uL (4.8-10.8)
[2020-03-17] MEDS ORDERED: SODIUM CHLORIDE 0.9% 1000ML 1,000 ML IV PRN (07:26)
[2020-03-17] MEDS ORDERED: HEPARIN SOD (PORCINE) 1000 UNIT/ML 10 ML VIAL IV ONE (07:26)
[2020-03-17 07:51] LABS: Iron 36 mcg/dl (35-150); Transferrin 142 mg/dl (200-360); Transferrin Percent Saturation 18 % (15-50)
[2020-03-17] MEDS ORDERED: EPOETIN ALFA 10,000 UNITS/ML VIAL IV ONE (08:00)
[2020-03-17 08:03] LABS: BUN Creatinine Ratio 11.9 (10-20); Calcium 8.2 mg/dl (8.5-10.1); Est GFR (Non-African American) 10.3; Potassium 4.8 mmol/L (3.5-5.1)
[2020-03-17] MEDS ORDERED: FLUoxetine HCL 20 MG CAP PO SCH (09:00)
[2020-03-17] MEDS: HEPARIN SOD 5,000 UNIT/0.5 ML VIAL SQ SCH ×2 (09:00→20:09)
[2020-03-17] MEDS: INSULIN ASPART 100 UNITS/ML 3 ML PEN SC SCH ×4 (09:00→20:47)
[2020-03-17] MEDS: INSULIN GLARGINE SOLOSTAR 100 UNITS/ML 3 ML PEN SQ SCH (09:01)
[2020-03-17] MEDS: CHOLECALCIFEROL 1,000 UNITS 25 MCG TAB PO SCH (09:08)
[2020-03-17] MEDS: MICONAZOLE NITRATE POWDER 43 GM EXT SCH ×2 (09:08→20:09)
[2020-03-17] MEDS: PANTOprazole 40 MG TAB PO SCH (09:08)
--- NOTE | 2020-03-17 10:43 | Nephrology Progress Note ---
Date of Service March 17, 2020 Assessment & Plan (1) BARBARA (acute kidney injury): Patient with acute kidney injury on CKD 4 w/ baseline eGFR about 20. She has CKD stage IV at baseline. Creatinine peaked on 03/15 at 5.6 and BUN of 86. Chest x-ray still showing pulmonary edema a few days back. ongoing oliguria despite high dose lasix. improvement of uremic sx and volume overload w/ ini tiation of dialysis, though fluid removal minimal so far. eating better, looks overall better on exam today though some crackles still on lung exam. chemistries improved. >>>stopped hydralazine and lasix; continued coreg and amlodipine >> modify these further in coming days >>>orders in to remove ortiz, bladder scan q shift; with ortiz removal obviously strict output measurement no longer possible and that's ok; oliguric currently even on max dose lasix >cont dialysis diet; upped FR to 1.5L -palliative recs/discussion much appreciated/reviewed; psych following as well -Daily BMP >>>for discharge dispo, remains acute dialysis (not chronic though this is certainly a possible dx longer term) and will be 3 days weekly dialysis after d/c -next tx today then recheck 03/18 but plan tentatively for 03/19, depending on d/c dispo -iron stores low >> will order venofer and epo w/ HD (2) Hyponatremia: Due to volume overload and improving. We will continue diuretics and monitor sodium daily-improved today w/ 500 fluid removal yesterday. -liberalize fluid restriction to 1.5L daily -resolving/normalizing w/ HD (3) Hyperkalemia: improving w/ HD; cont renal diet and dialysis; daily bmp; radiation monitor may be stopped soon / even today >> ok for dialysis off monitor as no worrisome arrhythmias overnight on review of radiation monitor Admission and Anticipated Discharge Date Admission Date: March 08, 2020 Subjective seen on rounds this am 0820 approx; doing better w/ po intake and feeling a bit better this am; no sob; no uncontrolled pain; still very tired post HD yesterday Review of Systems Review of Systems: All systems reviewed & are unremarkable except as noted in HPI & below Physical Exam Constitutional: well developed, well nourished, + frail appearing and cooperative; no acute distress and not ill appearing empty breakfast tray beside her and on RA Eyes: EOM intact bilaterally ENMT: Ears: no external ear abnormality Nose: no external nose abnormality Mouth: + dry oral mucous membranes Neck: no nuchal rigidity Respiratory: normal respiratory effort Auscultation: + crackles (inspiratory R base) Cardiovascular: Rate/Rhythm: regular rate and regular rhythm Extremities: + edema (1+ BLE unwrapped L>R) Gastrointestinal (Abdomen): Inspection/Auscultation: normal bowel sounds Percussion/Palpation: abdomen soft; abdomen nontender Musculoskeletal: Extremities: strength 5/5 throughout Skin: no rashes, warm and dry Trauma: + abrasion (RLE pretibial) Psychiatric: Orientation: alert and oriented x 3 Eye Contact: good eye contact Speech: normal rate/rhythm/volume of speech Affect: + flat affect Genitourinary: ortiz present Results & Data ([facility]) Vital Signs (Past 12 Hours) Vital Signs Temp Pulse Pulse Pulse Resp BP BP 03/17/20 10:20 76 130/68 03/17/20 10:00 76 144/63 H 03/17/20 09:40 76 136/63 03/17/20 09:19 36.6 C 73 73 148/63 H 03/17/20 04:47 36.4 C L 66 17 116/62 03/16/20 23:35 36.3 C L 70 16 03/16/20 22:51 69 BP Pulse Ox 03/17/20 10:20 03/17/20 10:00 03/17/20 09:40 03/17/20 09:19 03/17/20 04:47 99 03/16/20 23:35 128/59 L 99 03/16/20 22:51 Laboratory Results 03/17/20 06:40 03/17/20 06:45
[2020-03-17] MEDS: ARIPIprazole 1 MG/ML ORAL SOLN 150 ML BTL PO SCH (11:22)
[2020-03-17] MEDS: DOCUSATE SODIUM 100 MG CAP PO SCH ×2 (11:22→20:09)
[2020-03-17] MEDS: MAGNESIUM OXIDE 400 MG TAB PO SCH ×3 (11:22→20:09)
[2020-03-17] MEDS: HEPARIN SOD (PORCINE) 1000 UNIT/ML 10 ML VIAL IV SCH (11:47)
[2020-03-17] MEDS ORDERED: IRON SUCROSE 100 MG in SYRINGE 0 ML IV ONE (12:00)
[2020-03-17] MEDS: CALCIUM 600MG + VIT D 400 IU TAB PO SCH (12:01)
[2020-03-17] MEDS: ZINC SULFATE 220 MG CAPSULE PO SCH (12:01)
[2020-03-17] MEDS: FLUoxetine HCL 20 MG CAP PO SCH (13:55)
[2020-03-17] MEDS: CLOPIDOGREL BISULFATE 75 MG TAB PO SCH (13:56)
[2020-03-17] MEDS: carvediloL 12.5 MG TAB PO SCH ×2 (13:56→20:09)
[2020-03-17] MEDS: amLODIPine BESYLATE 5 MG TAB PO SCH (13:57)
[2020-03-17] MEDS: buPROPion SR 100 MG TABCR PO SCH (13:57)
--- NOTE | 2020-03-17 19:26 | Hospitalist Progress Note ---
Date of Service March 17, 2020 Assessment & Plan (1) BARBARA (acute kidney injury): 1. Acute kidney injury on chronic kidney disease stage III acute oligouric renal failure from ATN-no dialysis dependent nephrology following 03/15/2020 status post dialysis Cath placement cont dialysis while in hospital 2. Hyperkalemia - resolved getting scheduled dialysis as per Nephrology while in patient 3. Diabetes. Continue with Lantus insulin sliding scale. 4. Hypothyroidism. Continue Synthroid. 5. Gastroesophageal reflux disease, continue PPI. 6. Chronic diastolic congestive heart failure (+) Acute Exacerbation/presented with vol overload -on dialysis now 7. Hypertension. Amlodipine 5 mg p.o. daily Hydralazine IV PRN ordered Coreg and hydralazine 50 mg 3 times daily Monitor 8. Lower extremity infection of the toes with methicillin-resistant Staphylococcus aureus - Completed course of IV clindamycin - Wound care consulted 9. Coronary artery disease, mild nonobstructive CAD on catheterization in 2011. Continue beta opal, Plavix, stable. 10. History of mild obstructive sleep apnea and nocturnal hypoxemia. Oxygen at bedtime. 11. Anemia of chronic kidney disease, iron deficiency anemia, on iron supplements. Received 2 units of PRBC at another hospital. - Hg 9.7 --> 9.3 12. Depression and anxiety. Continue Abilify, Wellbutrin./appreciate input form Psychiatry 13. History of cerebrovascular accident -- on aspirin and Plavix. 19. Deep venous thrombosis prophylaxis. heparin subQ Disposition pending will benefit with SNF , pt is refusing needs arrangements for out pt dialysis appreciate input from case menagement Admission and Anticipated Discharge Date Admission Date: March 08, 2020 Subjective sitting up on chair offers no new complain reluctant to go to rehab daughter present at bedside , update given Physical Exam Physical Exam: General- oriented x 3, not in distress, speaks in sentences with no effort or accessory muscle use Eyes- anicteric Neck- no JVD Lungs-mildly decreased breath sounds at the bases, no crackles or wheezing Heart- normal rate, regular rhythm; no murmurs Abdomen- normal bowel sounds, nondistended, soft, nontender Extremities- grade 2 lower leg edema, no calf tenderness Neuro- alert, oriented x 3; no gross focal neurologic deficits Skin- warm & dry Results & Data Results & Data ([facility]) Vital Signs (Past 12 Hours) Vital Signs Temp Pulse Pulse Pulse Resp BP BP 10/15/20 15:54 36.7 C 79 20 152/66 H 03/17/20 13:49 36.8 C 77 17 156/59 H 03/17/20 13:05 37.2 C 78 78 161/63 H 161/63 H 03/17/20 13:00 77 159/64 H 03/17/20 12:40 77 163/63 H 03/17/20 12:20 73 154/61 H 03/17/20 12:00 75 155/63 H 03/17/20 11:40 77 161/67 H 03/17/20 11:20 77 171/73 H 03/17/20 11:00 77 160/65 H 03/17/20 10:40 75 137/62 03/17/20 10:20 76 130/68 03/17/20 10:00 76 144/63 H 03/17/20 09:40 76 136/63 03/17/20 09:19 36.6 C 73 73 148/63 H Pulse Ox 03/17/20 15:54 99 03/17/20 13:49 97 03/17/20 13:05 03/17/20 13:00 03/17/20 12:40 03/17/20 12:20 03/17/20 12:00 03/17/20 11:40 03/17/20 11:20 03/17/20 11:00 03/17/20 10:40 03/17/20 10:20 03/17/20 10:00 03/17/20 09:40 03/17/20 09:19
[2020-03-18] MEDS: LEVOTHYROXINE SODIUM 200 MCG TABLET PO SCH (05:49)
[2020-03-18] MEDS: CHOLECALCIFEROL 1,000 UNITS 25 MCG TAB PO SCH (08:02)
[2020-03-18] MEDS: INSULIN ASPART 100 UNITS/ML 3 ML PEN SC SCH ×4 (08:07→21:15)
[2020-03-18] MEDS: PANTOprazole 40 MG TAB PO SCH (08:09)
[2020-03-18] MEDS: FLUoxetine HCL 20 MG CAP PO SCH (08:09)
[2020-03-18] MEDS: ARIPIprazole 1 MG/ML ORAL SOLN 150 ML BTL PO SCH (08:10)
[2020-03-18] MEDS: amLODIPine BESYLATE 5 MG TAB PO SCH (08:15)
[2020-03-18] MEDS: carvediloL 12.5 MG TAB PO SCH ×2 (08:15→21:15)
[2020-03-18] MEDS: buPROPion SR 100 MG TABCR PO SCH (08:15)
[2020-03-18] MEDS: CLOPIDOGREL BISULFATE 75 MG TAB PO SCH (08:16)
[2020-03-18] MEDS: DOCUSATE SODIUM 100 MG CAP PO SCH ×2 (08:16→21:16)
[2020-03-18] MEDS: MAGNESIUM OXIDE 400 MG TAB PO SCH ×3 (08:17→21:15)
[2020-03-18] MEDS: HEPARIN SOD 5,000 UNIT/0.5 ML VIAL SQ SCH ×2 (08:21→21:15)
[2020-03-18] MEDS: INSULIN GLARGINE SOLOSTAR 100 UNITS/ML 3 ML PEN SQ SCH (08:21)
[2020-03-18] MEDS: MICONAZOLE NITRATE POWDER 43 GM EXT SCH ×2 (08:22→21:16)
--- NOTE | 2020-03-18 09:25 | Nephrology Progress Note ---
Date of Service March 18, 2020 Assessment & Plan (1) ESRD (end stage renal disease): Patient with acute kidney injury on CKD 4 w/ baseline eGFR about 20 for about a year prior to this admission. Creatinine peaked on 03/15 at 5.6 and BUN of 86. ongoing oliguria despite high dose lasix. improvement of uremic sx and volume overload w/ initiation of dialysis, though fluid removal minimal so far and today a bit more overloaded on exam. eating better again today though some crackles still on lung exam. chemistries improved w/ dialysis as of yesterday. oliguric even on max dose lasix for several days; lasix stopped 03/17 >>>stopped hydralazine and lasix; continued coreg and amlodipine >> modify these further in coming days; she still has prn hydralazine which should be used >>>no reports of urinary retention >cont dialysis diet; upped FR to 1.5L -palliative recs/discussion much appreciated/reviewed; psych following as well -BMP ordered for 03/19 -appreciate case mgt assistance w/ referral to [facility] for admission > likely not before next week >>>next HD planned tentatively for 03/19, depending on d/c dispo -iron stores low >> will order venofer and epo w/ H Present on Admission?: Yes (2) Hyponatremia: Due to volume overload and improving. We will continue diuretics and monitor sodium daily-improved today w/ 500 fluid removal yesterday. -liberalize fluid restriction to 1.5L daily -resolving/normalizing as of yesterday w/ HD Admission and Anticipated Discharge Date Admission Date: March 08, 2020 Subjective no events on monitor overnight; ate well this am; edema worse; remains on 02 Review of Systems Review of Systems: All systems reviewed & are unremarkable except as noted in HPI & below Physical Exam Constitutional: well developed, well nourished, + frail appearing and cooperative; no acute distress and not ill appearing up in chair on RA Eyes: EOM intact bilaterally ENMT: Ears: no external ear abnormality Nose: no external nose abnormality Mouth: + dry oral mucous membranes Neck: no nuchal rigidity Respiratory: normal respiratory effort Auscultation: + crackles (inspiratory R base) Cardiovascular: Rate/Rhythm: regular rate and regular rhythm Extremities: + edema (2++ BLE unwrapped L>R) Gastrointestinal (Abdomen): Inspection/Auscultation: normal bowel sounds Percussion/Palpation: abdomen soft; abdomen nontender Musculoskeletal: Extremities: strength 5/5 throughout Skin: no rashes, warm and dry Trauma: + abrasion (RLE pretibial) Psychiatric: Orientation: alert and oriented x 3 Eye Contact: good eye contact Speech: normal rate/rhythm/volume of speech Affect: + flat affect Results & Data ([facility]) Vital Signs (Past 12 Hours) Vital Signs Temp Pulse Pulse Resp BP Pulse Ox 03/18/20 07:58 36.3 C L 75 18 167/65 H 98 03/18/20 03:37 36.7 C 73 18 148/67 H 98 03/18/20 00:30 36.4 C L 71 17 126/55 L 99 03/17/20 23:00 70 Laboratory Results no labs from today so far
[2020-03-18] MEDS: CALCIUM 600MG + VIT D 400 IU TAB PO SCH (11:28)
[2020-03-18] MEDS: ZINC SULFATE 220 MG CAPSULE PO SCH (11:28)
--- NOTE | 2020-03-18 21:21 | Hospitalist Progress Note ---
Date of Service March 18, 2020 Assessment & Plan (1) BARBARA (acute kidney injury): 1. Acute kidney injury on chronic kidney disease stage III acute oligouric renal failure from ATN-no dialysis dependent nephrology following 03/15/2020 status post dialysis Cath placement cont dialysis while in hospital 2. Hyperkalemia - resolved getting scheduled dialysis as per Nephrology while in patient 3. Diabetes. Continue with Lantus insulin sliding scale. 4. Hypothyroidism. Continue Synthroid. 5. Gastroesophageal reflux disease, continue PPI. 6. Chronic diastolic congestive heart failure (+) Acute Exacerbation/presented with vol overload -on dialysis now 7. Hypertension. Amlodipine 5 mg p.o. daily Hydralazine IV PRN ordered Coreg and hydralazine 50 mg 3 times daily Monitor 8. Lower extremity infection of the toes with methicillin-resistant Staphylococcus aureus - Completed course of IV clindamycin - Wound care consulted 9. Coronary artery disease, mild nonobstructive CAD on catheterization in 2011. Continue beta opal, Plavix, stable. 10. History of mild obstructive sleep apnea and nocturnal hypoxemia. Oxygen at bedtime. 11. Anemia of chronic kidney disease, iron deficiency anemia, on iron supplements. Received 2 units of PRBC at another hospital. - Hg 9.7 --> 9.3 12. Depression and anxiety. Continue Abilify, Wellbutrin./appreciate input form Psychiatry 13. History of cerebrovascular accident -- on aspirin and Plavix. 19. Deep venous thrombosis prophylaxis. heparin subQ Disposition pending will benefit with SNF , pt is refusing needs arrangements for out pt dialysis appreciate input from case menagement Admission and Anticipated Discharge Date Admission Date: March 08, 2020 Subjective sitting up on chair offers no new complain reluctant to go to rehab daughter present at bedside , update given Physical Exam Physical Exam: General- oriented x 3, not in distress, speaks in sentences with no effort or accessory muscle use Eyes- anicteric Neck- no JVD Lungs-mildly decreased breath sounds at the bases, no crackles or wheezing Heart- normal rate, regular rhythm; no murmurs Abdomen- normal bowel sounds, nondistended, soft, nontender Extremities- grade 2 lower leg edema, no calf tenderness Neuro- alert, oriented x 3; no gross focal neurologic deficits Skin- warm & dry Results & Data Results & Data ([facility]) Vital Signs (Past 12 Hours) Vital Signs Temp Pulse Pulse Pulse Resp BP Pulse Ox 10/16/20 15:56 36.3 C L 76 16 156/70 H 100 03/18/20 14:45 73 03/18/20 12:00 36.4 C L 78 19 176/71 H 97
[2020-03-19] MEDS: traMADol HCL 50 MG TABLET PO PRN ×2 (04:03→19:49)
[2020-03-19] MEDS: LEVOTHYROXINE SODIUM 200 MCG TABLET PO SCH (06:21)
[2020-03-19] MEDS ORDERED: HEPARIN SOD (PORCINE) 1000 UNIT/ML 10 ML VIAL IV ONE (06:50)
[2020-03-19] MEDS ORDERED: SODIUM CHLORIDE 0.9% 1000ML 1,000 ML IV PRN (07:00)
[2020-03-19 07:14] LABS: Calcium 8.4 mg/dl (8.5-10.1); Creatinine Clr Calc Pharmacy 11.3 ml/min; Est GFR (African American) 12.4; Est GFR (Non-African American) 10.7; Potassium 5.2 mmol/L (3.5-5.1)
[2020-03-19] MEDS ORDERED: EPOETIN ALFA 20,000 UNITS/ML VIAL IV ONE (08:00)
[2020-03-19] MEDS: INSULIN ASPART 100 UNITS/ML 3 ML PEN SC SCH ×4 (08:09→20:05)
[2020-03-19] MEDS: CHOLECALCIFEROL 1,000 UNITS 25 MCG TAB PO SCH (08:13)
[2020-03-19] MEDS: PANTOprazole 40 MG TAB PO SCH (08:14)
[2020-03-19] MEDS: MAGNESIUM OXIDE 400 MG TAB PO SCH ×3 (08:14→19:51)
[2020-03-19] MEDS: amLODIPine BESYLATE 5 MG TAB PO SCH (08:14)
[2020-03-19] MEDS: carvediloL 12.5 MG TAB PO SCH ×2 (08:14→19:52)
[2020-03-19] MEDS: DOCUSATE SODIUM 100 MG CAP PO SCH ×2 (08:15→19:51)
[2020-03-19] MEDS: buPROPion SR 100 MG TABCR PO SCH (08:15)
[2020-03-19] MEDS: ARIPIprazole 1 MG/ML ORAL SOLN 150 ML BTL PO SCH (08:16)
[2020-03-19] MEDS: FLUoxetine HCL 20 MG CAP PO SCH (08:16)
[2020-03-19] MEDS: HEPARIN SOD 5,000 UNIT/0.5 ML VIAL SQ SCH ×2 (08:16→19:55)
[2020-03-19] MEDS: MICONAZOLE NITRATE POWDER 43 GM EXT SCH ×2 (08:18→19:52)
[2020-03-19] MEDS: INSULIN GLARGINE SOLOSTAR 100 UNITS/ML 3 ML PEN SQ SCH (08:19)
[2020-03-19] MEDS ORDERED: IRON SUCROSE 100 MG in SYRINGE 0 ML IV ONE (09:00)
[2020-03-19] MEDS: CLOPIDOGREL BISULFATE 75 MG TAB PO SCH (09:22)
[2020-03-19] MEDS: HEPARIN SOD (PORCINE) 1000 UNIT/ML 10 ML VIAL IV SCH ×2 (11:10→11:11)
--- NOTE | 2020-03-19 12:30 | Dialysis Progress Note ---
Date of Service March 19, 2020 Assessment & Plan (1) ESRD (end stage renal disease): Patient with acute kidney injury on CKD 4 w/ baseline eGFR about 20 for about a year prior to this admission. Creatinine peaked on 03/15 at 5.6 and BUN of 86. ongoing oliguria despite high dose lasix. improvement of uremic sx and volume overload w/ initiation of dialysis, though fluid removal minimal so far and today a bit more overloaded on exam. remains on 02nc. chemistries improved w/ dialysis as of yesterday. oliguric even on max dose lasix for several days; lasix stopped 03/17 >>continue coreg and amlodipine >> she still has prn hydralazine which should be used >>>no reports of urinary retention >cont dialysis diet; upped FR to 1.5L -palliative recs/discussion much appreciated/reviewed; psych following as well -increased UF goal to 2.3 L today based on exam and VS after seeing her on dialysis; bp parameters for UF in place -appreciate case mgt assistance w/ referral to [facility] for admission > likely not before next week >>>next HD planned tentatively for 03/22, depending on d/c dispo -iron stores low >> will order venofer and epo w/ HD Admission and Anticipated Discharge Date Admission Date: March 08, 2020 Subjective tired but comfortable; still very depressed; had bp meds this am and bp still 160s on arrival to dialysis suite Review of Systems Review of Systems: All systems reviewed & are unremarkable except as noted in HPI & below Physical Exam Constitutional: well developed, well nourished, + frail appearing and cooperative; no acute distress and not ill appearing on comfortable in bed Eyes: EOM intact bilaterally ENMT: Ears: no external ear abnormality Nose: no external nose abnormality Mouth: + dry oral mucous membranes Neck: no nuchal rigidity Respiratory: normal respiratory effort Auscultation: + diminished lung sounds Cardiovascular: Rate/Rhythm: regular rate and regular rhythm Extremities: + edema (2++ BLE unwrapped L>R) Gastrointestinal (Abdomen): Inspection/Auscultation: normal bowel sounds Percussion/Palpation: abdomen soft; abdomen nontender Musculoskeletal: Extremities: strength 5/5 throughout Skin: no rashes, warm and dry Psychiatric: Orientation: alert and oriented x 3 Eye Contact: good eye contact Speech: normal rate/rhythm/volume of speech Affect: + flat affect Genitourinary: no ortiz Results & Data ([facility]) Vital Signs (Past 12 Hours) Vital Signs Temp Pulse Pulse Pulse Resp BP BP 03/19/20 11:00 72 143/65 H 03/19/20 10:40 74 151/67 H 03/19/20 10:20 74 158/77 H 03/19/20 10:00 74 157/71 H 03/19/20 09:37 36.5 C 77 03/19/20 08:38 36.4 C L 79 16 167/67 H 03/19/20 04:40 36.5 C 75 16 160/67 H 03/19/20 01:54 75 03/19/20 00:50 36.4 C L 76 18 156/67 H Pulse Ox 03/19/20 11:00 03/19/20 10:40 03/19/20 10:20 03/19/20 10:00 03/19/20 09:37 03/19/20 08:38 96 03/19/20 04:40 98 03/19/20 01:54 03/19/20 00:50 98 Laboratory Results 03/17/20 06:40 03/19/20 05:57
[2020-03-19] MEDS: ZINC SULFATE 220 MG CAPSULE PO SCH (12:41)
[2020-03-19] MEDS: CALCIUM 600MG + VIT D 400 IU TAB PO SCH (12:42)
--- NOTE | 2020-03-19 18:18 | Hospitalist Progress Note ---
Date of Service March 19, 2020 Assessment & Plan (1) BARBARA (acute kidney injury): 1. acute oligouric renal failure from ATN-now dialysis dependent nephrology following 03/15/2020 status post dialysis Cath placement cont dialysis while in hospital , pt will need chronic out pt dialysis arrangements for HD made at [facility] 2. Hyperkalemia - resolved getting scheduled dialysis as per Nephrology while in patient 3. Diabetes. Continue with Lantus insulin sliding scale. 4. Hypothyroidism. Continue Synthroid. 5. Gastroesophageal reflux disease, continue PPI. 6. Chronic diastolic congestive heart failure (+) Acute Exacerbation/presented with vol overload -on dialysis now 7. Hypertension. Amlodipine 5 mg p.o. daily Hydralazine IV PRN ordered Coreg and hydralazine 50 mg 3 times daily Monitor 8. Lower extremity infection of the toes with methicillin-resistant Staphylococcus aureus - Completed course of IV clindamycin - Wound care consulted 9. Coronary artery disease, mild nonobstructive CAD on catheterization in 2011. Continue beta opal, Plavix, stable. 10. History of mild obstructive sleep apnea and nocturnal hypoxemia. Oxygen at bedtime. 11. Anemia of chronic kidney disease, iron deficiency anemia, on iron supplements. Received 2 units of PRBC at another hospital. - Hg 9.7 --> 9.3 12. Depression and anxiety. Continue Abilify, Wellbutrin./appreciate input form Psychiatry 13. History of cerebrovascular accident -- on aspirin and Plavix. 19. Deep venous thrombosis prophylaxis. heparin subQ Disposition pending will benefit with SNF , pt is refusing arrangements made for out pt dialysis at [facility] appreciate input from case management Admission and Anticipated Discharge Date Admission Date: March 08, 2020 Subjective had dialysis , feels weak and fatigued post HD no SOB , no cough Physical Exam Physical Exam: General- oriented x 3, not in distress, speaks in sentences with no effort or accessory muscle use Eyes- anicteric Neck- no JVD Lungs-mildly decreased breath sounds at the bases, no crackles or wheezing Heart- normal rate, regular rhythm; no murmurs Abdomen- normal bowel sounds, nondistended, soft, nontender Extremities- grade 2 lower leg edema, no calf tenderness Neuro- alert, oriented x 3; no gross focal neurologic deficits Skin- warm & dry Results & Data Results & Data ([facility]) Vital Signs (Past 12 Hours) Vital Signs Temp Pulse Pulse Resp BP BP Pulse Ox 03/19/20 16:11 36.2 C L 81 16 164/68 H 98 03/19/20 14:46 74 03/19/20 14:09 36.4 C L 74 16 151/70 H 99 03/19/20 13:50 36.6 C 76 159/80 H 03/19/20 13:20 69 144/69 H 03/19/20 13:00 70 150/67 H 03/19/20 12:40 70 148/70 H 03/19/20 12:20 71 136/63 03/19/20 12:00 71 159/64 H 03/19/20 11:40 72 152/67 H 03/19/20 11:20 71 136/63 03/19/20 11:00 72 143/65 H 03/19/20 10:40 74 151/67 H 03/19/20 10:20 74 158/77 H 03/19/20 10:00 74 157/71 H 03/19/20 09:37 36.5 C 77 03/19/20 08:38 36.4 C L 79 16 167/67 H 96 03/19/20 07:46 77
[2020-03-20] MEDS: LEVOTHYROXINE SODIUM 200 MCG TABLET PO SCH (06:44)
[2020-03-20 07:30] LABS: Hematocrit (blood only) 28.2 % (37-47); Hemoglobin 8.5 g/dL (12.0-16.0); Mean Corpuscular Hemoglobin 28.9 pg (25-34); Mean Corpuscular Hgb Conc 30.1 g/dL (32-36); Mean Corpuscular Volume 95.9 fL (80-100); Mean Platelet Volume 8.2 fL (7.4-10.4); Platelet Count 464 K/uL (130-400); RDW Coefficient of Variation 16.9 % (11.5-14.5); RDW Standard Deviation 58.1 fL (36.4-46.3); Red Blood Count 2.94 M/uL (4.2-5.4); White Blood Count 8.03 K/uL (4.8-10.8)
[2020-03-20] MEDS: MICONAZOLE NITRATE POWDER 43 GM EXT SCH ×2 (08:40→20:53)
[2020-03-20] MEDS: CLOPIDOGREL BISULFATE 75 MG TAB PO SCH (08:44)
[2020-03-20] MEDS: FLUoxetine HCL 20 MG CAP PO SCH (08:44)
[2020-03-20] MEDS: DOCUSATE SODIUM 100 MG CAP PO SCH ×2 (08:44→20:51)
[2020-03-20] MEDS: amLODIPine BESYLATE 5 MG TAB PO SCH (08:44)
[2020-03-20] MEDS: MAGNESIUM OXIDE 400 MG TAB PO SCH ×3 (08:44→20:51)
[2020-03-20] MEDS: PANTOprazole 40 MG TAB PO SCH (08:44)
[2020-03-20] MEDS: carvediloL 12.5 MG TAB PO SCH ×2 (08:44→20:51)
[2020-03-20] MEDS: HEPARIN SOD 5,000 UNIT/0.5 ML VIAL SQ SCH ×2 (08:45→20:51)
[2020-03-20] MEDS: ARIPIprazole 1 MG/ML ORAL SOLN 150 ML BTL PO SCH (08:45)
[2020-03-20] MEDS: INSULIN GLARGINE SOLOSTAR 100 UNITS/ML 3 ML PEN SQ SCH (08:45)
[2020-03-20] MEDS: INSULIN ASPART 100 UNITS/ML 3 ML PEN SC SCH ×4 (08:46→20:51)
[2020-03-20] MEDS: CHOLECALCIFEROL 1,000 UNITS 25 MCG TAB PO SCH (10:58)
[2020-03-20] MEDS: CALCIUM 600MG + VIT D 400 IU TAB PO SCH (11:55)
[2020-03-20] MEDS: ZINC SULFATE 220 MG CAPSULE PO SCH (13:35)
--- NOTE | 2020-03-20 18:10 | Hospitalist Progress Note ---
Date of Service March 20, 2020 Assessment & Plan (1) BARBARA (acute kidney injury): acute oligouric renal failure from ATN- now dialysis dependent ; status post dialysis Cath placement on pt remains oliguric ; no urine out put last 24 hrs -developed wheeze , worsening of bilateral lower ext edema ordered for Lasix 80 mg PO , will ask Nephrology to re evaluate , may need for fluid removal in HD Hyperkalemia - ordered for Lasix getting scheduled dialysis as per Nephrology while in patient Diabetes Type 2 Continue with Lantus insulin sliding scale. Chronic diastolic congestive heart failure (+) Acute Exacerbation/presented with vol overload -on dialysis now Hypertension. will D/c Amlodipine : for lower ext edema Coreg and hydralazine 50 mg 3 times daily PRN IV hydralazine vol management with HD Lower extremity infection of the toes with methicillin-resistant Staphylococcus aureus - Completed course of IV clindamycin - Wound care consulted Coronary artery disease, mild nonobstructive CAD on catheterization in 2011. Continue beta opal, Plavix, Anemia of chronic kidney disease, iron deficiency anemia, on iron supplements. Received 2 units of PRBC at another hospital. - Hg 9.7 --> 9.3 received Venofar Depression and anxiety. Continue Abilify, Wellbutrin./appreciate input form Psychiatry History of cerebrovascular accident -- on aspirin and Plavix. Deep venous thrombosis prophylaxis. heparin subQ given worsening of bilat lower ext edema , ordered for USG to r/o DVT Disposition pending will benefit with SNF , pt is refusing arrangements made for out pt dialysis at [facility] appreciate input from case management Admission and Anticipated Discharge Date Admission Date: March 08, 2020 Subjective developed wheeze this am symptoms resolved now ordered for PRN Neb tx no complain of SOB or chest pain no fever or chills Physical Exam Physical Exam: General- oriented x 3, not in distress, speaks in sentences with no effort or accessory muscle use Eyes- anicteric Neck- no JVD Lungs-mildly decreased breath sounds at the bases, no crackles or wheezing Heart- normal rate, regular rhythm; no murmurs Abdomen- normal bowel sounds, nondistended, soft, nontender Extremities-+ 3 bilateral pitting edema , extended to upper thigh , with sipping noted no tenderness , no increased warmth or erythema Neuro- alert, oriented x 3; no gross focal neurologic deficits Skin- warm & dry Results & Data Results & Data ([facility]) Vital Signs (Past 12 Hours) Vital Signs Temp Pulse Pulse Resp BP BP Pulse Ox 03/20/20 16:22 36.3 C L 79 16 176/74 H 97 03/20/20 11:50 36.4 C L 77 16 170/72 H 97 03/20/20 09:01 82 03/20/20 08:44 36.4 C L 80 16 185/74 H 97
[2020-03-20] MEDS: FUROSEMIDE 80 MG TAB PO SCH (20:53)
[2020-03-20] MEDS: hydrALAZINE TAB 50 MG TAB PO SCH ×2 (20:53→21:18)
[2020-03-20] MEDS: traMADol HCL 50 MG TABLET PO PRN (20:58)
[2020-03-20] MEDS ORDERED: hydrALAZINE TAB 50 MG TAB PO SCH (21:00)
[2020-03-21] MEDS: LEVOTHYROXINE SODIUM 200 MCG TABLET PO SCH (05:27)
[2020-03-21] MEDS: ACETAMINOPHEN 325 MG TAB PO PRN (07:53)
[2020-03-21] MEDS: ALBUT/IPRATROP 3MG/0.5MG NEB 3 ML VIAL NEB PRN ×2 (08:01→23:59)
[2020-03-21 08:37] LABS: BUN Creatinine Ratio 9.8 (10-20); Creatinine Clr Calc Pharmacy 10.8 ml/min; Est GFR (African American) 11.5
--- NOTE | 2020-03-21 09:08 | Ultrasound Report ---
BILATERAL LOWER EXTREMITY VENOUS DOPPLER CLINICAL HISTORY: Bilateral lower extremity swelling. COMPARISON STUDY: Bilateral lower extremity venous Doppler ultrasound July 22, 2017. TECHNIQUE: Sonography of the deep venous system of the bilateral lower extremities was performed. Co mpression and augmentation were evaluated. FINDINGS: The bilateral common femoral, superficial femoral and popliteal veins were patent although evaluation was mildly compromised. Augmentation was normal. Flow was shown within the deep calf vess els. Lower extremity edema was noted. IMPRESSION: Exam mildly compromised but no evidence of deep venous thrombus within the bilateral lowe r extremities. ACT 112: Negative or not required by law. Electronically signed by: Gerhard Hartman M.D. 03/21/2020 9:07 AM
[2020-03-21] MEDS: hydrALAZINE TAB 50 MG TAB PO SCH ×3 (09:14→21:00)
[2020-03-21] MEDS: CLOPIDOGREL BISULFATE 75 MG TAB PO SCH (09:15)
[2020-03-21] MEDS: DOCUSATE SODIUM 100 MG CAP PO SCH ×2 (09:15→20:59)
[2020-03-21] MEDS: carvediloL 12.5 MG TAB PO SCH ×2 (09:15→21:51)
[2020-03-21] MEDS: ZINC SULFATE 220 MG CAPSULE PO SCH (09:16)
[2020-03-21] MEDS: FLUoxetine HCL 20 MG CAP PO SCH (09:16)
[2020-03-21] MEDS: MAGNESIUM OXIDE 400 MG TAB PO SCH ×3 (09:17→21:00)
[2020-03-21] MEDS: PANTOprazole 40 MG TAB PO SCH (09:17)
[2020-03-21] MEDS: FUROSEMIDE 80 MG TAB PO SCH (09:18)
[2020-03-21] MEDS: CALCIUM 600MG + VIT D 400 IU TAB PO SCH (09:18)
[2020-03-21] MEDS: CHOLECALCIFEROL 1,000 UNITS 25 MCG TAB PO SCH (09:19)
[2020-03-21] MEDS: ARIPIprazole 1 MG/ML ORAL SOLN 150 ML BTL PO SCH (09:19)
[2020-03-21] MEDS: HEPARIN SOD 5,000 UNIT/0.5 ML VIAL SQ SCH ×2 (09:22→21:07)
[2020-03-21] MEDS: INSULIN GLARGINE SOLOSTAR 100 UNITS/ML 3 ML PEN SQ SCH (09:26)
[2020-03-21] MEDS: INSULIN ASPART 100 UNITS/ML 3 ML PEN SC SCH ×4 (09:27→21:07)
[2020-03-21] MEDS: MICONAZOLE NITRATE POWDER 43 GM EXT SCH ×2 (09:33→21:51)
[2020-03-21] MEDS ORDERED: FUROSEMIDE 40 MG TAB PO ONE (14:54)
--- NOTE | 2020-03-21 19:10 | Hospitalist Progress Note ---
Date of Service March 21, 2020 Assessment & Plan (1) BARBARA (acute kidney injury): acute oligouric renal failure from ATN- now dialysis dependent ; status post dialysis Cath placement on pt remains oliguric ; no urine out put last 24 hrs -developed wheeze , worsening of bilateral lower ext edema Patient is given 100 mg Lasix p.o., urine output in last 24 hours Scheduled for dialysis tomorrow by nephrology Patient may need additional fluid removal Hyperkalemia - ordered for Lasix getting scheduled dialysis as per Nephrology while in patient Diabetes Type 2 Continue with Lantus insulin sliding scale. Chronic diastolic congestive heart failure (+) Acute Exacerbation/presented with vol overload -on dialysis now Hypertension. D/c Amlodipine : for lower ext edema Coreg and hydralazine 50 mg 3 times daily PRN IV hydralazine vol management with HD Lower extremity infection of the toes with methicillin-resistant Staphylococcus aureus - Completed course of IV clindamycin - Wound care consulted Coronary artery disease, mild nonobstructive CAD on catheterization in 2011. Continue beta opal, Plavix, Anemia of chronic kidney disease, iron deficiency anemia, on iron supplements. Received 2 units of PRBC at another hospital. - Hg 9.7 --> 9.3 received Venofar Depression and anxiety. Continue Abilify, Wellbutrin./appreciate input form Psychiatry History of cerebrovascular accident -- on aspirin and Plavix. Deep venous thrombosis prophylaxis. heparin subQ given worsening of bilat lower ext edema , ordered for USG to r/o DVT Disposition pending Referral made to [facility], patient is agreeable for rehab arrangements made for out pt dialysis at [facility] appreciate input from case management Admission and Anticipated Discharge Date Admission Date: March 08, 2020 Subjective Denies of no new complaint Shortness of breath, no wheeze, bilateral lower extremity remains extremely edematous Physical Exam Physical Exam: General- oriented x 3, not in distress, speaks in sentences with no effort or accessory muscle use Eyes- anicteric Neck- no JVD Lungs-mildly decreased breath sounds at the bases, no crackles or wheezing Heart- normal rate, regular rhythm; no murmurs Abdomen- normal bowel sounds, nondistended, soft, nontender Extremities-+ 3 bilateral pitting edema , extended to upper thigh , with sipping noted no tenderness , no increased warmth or erythema Neuro- alert, oriented x 3; no gross focal neurologic deficits Skin- warm & dry Results & Data Results & Data ([facility]) Vital Signs (Past 12 Hours) Vital Signs Temp Pulse Pulse Pulse Resp BP BP 03/21/20 15:58 73 03/21/20 15:02 36.4 C L 72 18 186/73 H 03/21/20 11:49 36.6 C 81 16 159/71 H 03/21/20 08:02 83 18 03/21/20 08:00 80 03/21/20 07:59 36.4 C L 84 24 151/90 H Pulse Ox 03/21/20 15:58 03/21/20 15:02 98 03/21/20 11:49 99 03/21/20 08:02 95 03/21/20 08:00 03/21/20 07:59 95
[2020-03-21] MEDS: traMADol HCL 50 MG TABLET PO PRN (21:50)
[2020-03-21] MEDS: hydrALAZINE HCL 20 MG/ML VIAL IV PRN (23:49)
[2020-03-22] MEDS ORDERED: ALBUT/IPRATROP 3MG/0.5MG NEB 3 ML VIAL NEB STA (01:54)
[2020-03-22] MEDS: LEVOTHYROXINE SODIUM 200 MCG TABLET PO SCH (05:55)
--- NOTE | 2020-03-22 07:30 | XRay Report ---
XR chest 1V portable CLINICAL HISTORY: Shortness of breath COMPARISON STUDY: 03/10/2020 FINDINGS: The heart is enlarged. There is a valvular prosthesis. There is a right-sided dual-lumen ce ntral venous catheter. There is no pneumothorax. There are small bilateral pleural effusions. There i s mild pulmonary vascular congestion. There are persistent bilateral airspace opacities,[there is liset pected fluid loculated within the fissures. IMPRESSION: 1. Cardiomegaly and pulmonary vascular congestion 2. Bilateral pleural effusions with suspected loculated fissural fluid 3. Persistent bilateral airspace opacities ACT 112: Negative or not required by law. Electronically signed by: Juan Miguel Falk M.D. 03/22/2020 7:29 AM
[2020-03-22] MEDS: carvediloL 12.5 MG TAB PO SCH ×2 (08:10→21:22)
[2020-03-22] MEDS: ARIPIprazole 1 MG/ML ORAL SOLN 150 ML BTL PO SCH (08:11)
[2020-03-22] MEDS: DOCUSATE SODIUM 100 MG CAP PO SCH ×2 (08:11→21:22)
[2020-03-22] MEDS: hydrALAZINE TAB 50 MG TAB PO SCH (08:12)
[2020-03-22] MEDS: HEPARIN SOD 5,000 UNIT/0.5 ML VIAL SQ SCH ×2 (08:12→21:13)
[2020-03-22] MEDS: MICONAZOLE NITRATE POWDER 43 GM EXT SCH ×2 (08:12→21:15)
[2020-03-22] MEDS: CHOLECALCIFEROL 1,000 UNITS 25 MCG TAB PO SCH (08:53)
[2020-03-22] MEDS: CLOPIDOGREL BISULFATE 75 MG TAB PO SCH (08:53)
[2020-03-22] MEDS: PANTOprazole 40 MG TAB PO SCH (08:54)
[2020-03-22] MEDS: MAGNESIUM OXIDE 400 MG TAB PO SCH ×3 (08:54→21:10)
[2020-03-22] MEDS: FLUoxetine HCL 20 MG CAP PO SCH (08:54)
[2020-03-22] MEDS ORDERED: FUROSEMIDE 40 MG TAB PO SCH (09:00)
[2020-03-22] MEDS: INSULIN ASPART 100 UNITS/ML 3 ML PEN SC SCH ×4 (09:07→21:16)
[2020-03-22] MEDS: INSULIN GLARGINE SOLOSTAR 100 UNITS/ML 3 ML PEN SQ SCH (09:08)
[2020-03-22 09:19] LABS: BUN Creatinine Ratio 10.7 (10-20); Calcium 8.5 mg/dl (8.5-10.1); Creatinine Clr Calc Pharmacy 8.6 ml/min; Est GFR (African American) 8.8; Est GFR (Non-African American) 7.6; Potassium 5.8 mmol/L (3.5-5.1)
[2020-03-22] MEDS ORDERED: metOLazone 5 MG TABLET PO SCH (10:45)
--- NOTE | 2020-03-22 11:01 | Progress Notes ---
DATE: 03/22/2020 DIALYSIS NOTE The patient was seen during dialysis. So far she is tolerating it well. Blood pressure is 147/68. Catheter is working well. She has massive edema. She has been very oliguric for many days now and actually got short of breath with wheezing in the middle of the night and needed an x-ray which showed congestive heart failure. CHEST: Bilateral decreased breath sound. The patient is short of breath. EXTREMITIES: Shows 4+ edema with features of venous stasis. SKIN: Is extremely tight and thin and ready to break open. CARDIOVASCULAR: S1, S2, irregular. Systolic murmur heard. ABDOMEN: Soft, nontender. LABORATORY TESTS: This morning labs show sodium 133, potassium 5.8, BUN 53, creatinine is 4.9, hemoglobin is 8.5, WBC count 8000, platelet count 464. ASSESSMENT AND PLAN: An 84-year-old female who has now been declared ESRD requiring dialysis. 1. End-stage renal disease: She appears to be significantly volume overloaded and very oliguric. We will have to postpone her discharge as she is short of breath. Recommendations for today. we will take about 2.5 kilo of fluid in dialysis. She will need dialysis again tomorrow for further fluid removal. Also, recommend to use 100 Lasix IV q. 8 hour with metolazone 5 twice daily to see if we can get any urine output with the diuretics. MTDD
[2020-03-22] MEDS: ZINC SULFATE 220 MG CAPSULE PO SCH (14:24)
[2020-03-22] MEDS: CALCIUM 600MG + VIT D 400 IU TAB PO SCH (14:24)
[2020-03-22] MEDS: metOLazone 5 MG TABLET PO SCH ×2 (14:25→17:36)
[2020-03-22] MEDS: FERROUS FUMARATE/ASCORBIC ACID 65 MG CAPCR PO SCH ×2 (14:25→14:58)
[2020-03-22] MEDS: FUROSEMIDE 40 MG TAB PO SCH ×2 (14:37→21:09)
--- NOTE | 2020-03-22 16:33 | Hospitalist Progress Note ---
Date of Service March 22, 2020 Assessment & Plan (1) BARBARA (acute kidney injury): acute oligouric renal failure from ATN- now dialysis dependent ; status post dialysis Cath placement on pt remains oliguric ; no urine out put last 24 hrs -developed wheeze , worsening of bilateral lower ext edema Patient is given 100 mg Lasix p.o., urine output in last 24 hours s/p dialsysis today significant vol overload/decompansated CFF ( diastolic dysfunction ) due to anuria , renal faliure will need daily dialysis for few days to improve vol status appreciate nephrology eval Hyperkalemia - ordered for Lasix 100mg tid /metolazone no urine output getting scheduled dialysis as per Nephrology while in patient Diabetes Type 2 Continue with Lantus insulin sliding scale. acute decompesation of Chronic diastolic congestive heart failure developed significant vol overload -bilateral lower ext extensive edema with sipping of fluid SOB /Orthopnea , pulmonary effusion due to oliguric /anuric renal failure cont dialysis for vol managment Hypertension. BP remains evevalted due to vol overload D/c Amlodipine : for lower ext edema Coreg and hydralazine 50 mg 3 times daily PRN IV hydralazine vol management with HD Lower extremity infection of the toes with methicillin-resistant Staphylococcus aureus - Completed course of IV clindamycin - Wound care consulted Coronary artery disease, mild nonobstructive CAD on catheterization in 2011. Continue beta opal, Plavix, Anemia of chronic kidney disease, iron deficiency anemia, on iron supplements. Received 2 units of PRBC at another hospital. - Hg 9.7 --> 9.3 received Venofar Depression and anxiety. Continue Abilify, Wellbutrin./appreciate input form Psychiatry History of cerebrovascular accident -- on aspirin and Plavix. Deep venous thrombosis prophylaxis. heparin subQ Disposition pt will need hospital continued hospital stay for vol overlaod /decompensated CHF /daily dialysis need Referral made to [facility], patient is agreeable for rehab arrangements made for out pt dialysis at [facility] daughter updated at rehab Admission and Anticipated Discharge Date Admission Date: March 08, 2020 Subjective was very sob overnight , worsening of lower ext edema s/p dialysis with removal of 2.3 L fluid pt reports of improvement of sob after dialysis no urine output after large dose of lasix Results & Data Results & Data ([facility]) Vital Signs (Past 12 Hours) Vital Signs Temp Pulse Pulse Pulse Resp BP BP 03/22/20 15:36 36.6 C 76 18 179/67 H 03/22/20 14:05 37 C 76 142/65 H 03/22/20 13:55 76 147/66 H 03/22/20 13:20 76 149/64 H 03/22/20 13:00 78 160/71 H 03/22/20 12:40 75 158/65 H 03/22/20 12:20 75 153/65 H 03/22/20 12:00 75 147/69 H 03/22/20 11:40 76 156/61 H 03/22/20 11:20 77 134/64 03/22/20 11:00 76 143/63 H 03/22/20 10:40 80 147/68 H 03/22/20 10:20 78 141/62 H 03/22/20 09:54 61 135/66 03/22/20 09:49 37 C 81 03/22/20 07:59 37.1 C 84 20 169/68 H Pulse Ox 03/22/20 15:36 98 03/22/20 14:05 03/22/20 13:55 03/22/20 13:20 03/22/20 13:00 03/22/20 12:40 03/22/20 12:20 03/22/20 12:00 03/22/20 11:40 03/22/20 11:20 03/22/20 11:00 03/22/20 10:40 03/22/20 10:20 03/22/20 09:54 03/22/20 09:49 03/22/20 07:59 97
[2020-03-22] MEDS: traMADol HCL 50 MG TABLET PO PRN (17:33)
[2020-03-22] MEDS: ACETAMINOPHEN 325 MG TAB PO PRN (21:10)
[2020-03-23] MEDS: LEVOTHYROXINE SODIUM 200 MCG TABLET PO SCH (05:21)
[2020-03-23] MEDS ORDERED: traMADol HCL 50 MG TABLET PO STA (05:31)
[2020-03-23] MEDS: ALBUT/IPRATROP 3MG/0.5MG NEB 3 ML VIAL NEB PRN (05:38)
[2020-03-23] MEDS: traMADol HCL 50 MG TABLET PO PRN ×2 (06:00→19:34)
[2020-03-23 06:32] LABS: Hemoglobin 8.1 g/dL (12.0-16.0); Mean Corpuscular Hemoglobin 28.5 pg (25-34); Mean Corpuscular Volume 95.1 fL (80-100); Platelet Count 418 K/uL (130-400); RDW Coefficient of Variation 18.2 % (11.5-14.5); RDW Standard Deviation 61.1 fL (36.4-46.3); Red Blood Count 2.84 M/uL (4.2-5.4); White Blood Count 7.25 K/uL (4.8-10.8)
[2020-03-23] MEDS: HEPARIN SOD 5,000 UNIT/0.5 ML VIAL SQ SCH ×2 (08:38→21:15)
[2020-03-23] MEDS: ARIPIprazole 1 MG/ML ORAL SOLN 150 ML BTL PO SCH (08:38)
[2020-03-23] MEDS: MICONAZOLE NITRATE POWDER 43 GM EXT SCH ×2 (08:38→21:22)
[2020-03-23] MEDS: metOLazone 5 MG TABLET PO SCH ×2 (08:38→18:42)
[2020-03-23] MEDS: INSULIN GLARGINE SOLOSTAR 100 UNITS/ML 3 ML PEN SQ SCH (08:38)
[2020-03-23] MEDS: INSULIN ASPART 100 UNITS/ML 3 ML PEN SC SCH ×4 (08:39→23:46)
[2020-03-23] MEDS: carvediloL 12.5 MG TAB PO SCH ×3 (08:39→21:17)
[2020-03-23] MEDS: CHOLECALCIFEROL 1,000 UNITS 25 MCG TAB PO SCH (08:51)
[2020-03-23] MEDS: DOCUSATE SODIUM 100 MG CAP PO SCH ×2 (08:52→21:23)
[2020-03-23] MEDS: FUROSEMIDE 40 MG TAB PO SCH ×3 (08:52→21:17)
[2020-03-23] MEDS: MAGNESIUM OXIDE 400 MG TAB PO SCH ×3 (08:52→21:16)
[2020-03-23] MEDS: FLUoxetine HCL 20 MG CAP PO SCH (08:52)
[2020-03-23] MEDS: CLOPIDOGREL BISULFATE 75 MG TAB PO SCH (08:52)
[2020-03-23] MEDS: PANTOprazole 40 MG TAB PO SCH (08:52)
--- NOTE | 2020-03-23 09:02 | Hospitalist Progress Note ---
Date of Service March 23, 2020 Assessment & Plan (1) BARBARA (acute kidney injury): acute oligouric renal failure from ATN- now dialysis dependent ; status post dialysis Cath placement on 03/15/2020 pt remains oliguric ; no urine out put last 24 hrs -developed wheeze , worsening of bilateral lower ext edema Patient is given 100 mg Lasix p.o. with metolazone, urine output in last 24 hours s/p dialsysis today significant vol overload/decompensated CHF ( diastolic dysfunction ) due to anuria , renal failure will need daily dialysis for few days to improve vol status appreciate nephrology eval Hyperkalemia - ordered for Lasix 100mg tid /metolazone no urine output getting scheduled dialysis as per Nephrology while in patient Diabetes Type 2 Continue with Lantus insulin sliding scale. acute decompesation of Chronic diastolic congestive heart failure developed significant vol overload -bilateral lower ext extensive edema with seeping of fluid SOB /Orthopnea , pulmonary effusion due to oliguric /anuric renal failure cont dialysis for vol management Hypertension. BP remains elevated due to vol overload D/c Amlodipine : for lower ext edema Coreg and hydralazine 50 mg 3 times daily PRN IV hydralazine vol management with HD Lower extremity infection of the toes with methicillin-resistant Staphylococcus aureus - Completed course of IV clindamycin - Wound care consulted Coronary artery disease, mild nonobstructive CAD on catheterization in 2011. Continue beta opal, Plavix, Anemia of chronic kidney disease, iron deficiency anemia, on iron supplements. Received 2 units of PRBC at another hospital. - Hg 9.7 --> 9.3 received Venofar Depression and anxiety. Continue Abilify, Wellbutrin./appreciate input form Psychiatry History of cerebrovascular accident -- on aspirin and Plavix. Deep venous thrombosis prophylaxis. heparin subQ Disposition pt will need continued hospital stay for vol overload /decompensated CHF /daily dialysis need Referral made to [facility], patient is agreeable for rehab arrangements made for out pt dialysis at [facility] customer contact specialist: daughter Admission and Anticipated Discharge Date Admission Date: March 08, 2020 Subjective Patient reports shortness of breath at night. She is severely edematous, and anuric. She says she had very small urine output yesterday. Dialysis yesterday, removed 2.5 L of fluid, plan for dialysis today. She is very sad/depressed from being in the hospital. Denies any chest pain. Denies abdominal pain nausea or vomiting. Denies fevers or chills. Review of Systems Review of Systems: All systems reviewed & are unremarkable except as noted in HPI & below Constitutional: no fever and no chills Respiratory: + dyspnea (currently no dyspnea, however reports dyspnea overnight); no cough Cardiovascular: no chest pain Gastrointestinal: no abdominal pain, no nausea and no vomiting Physical Exam Physical Exam: General- oriented x 3, not in distress, speaks in full sentences with no effort or accessory muscle use Eyes- anicteric, EOMI Neck- no JVD Lungs-mildly decreased breath sounds at the bases, no crackles or wheezing Heart- normal rate, regular rhythm; no murmurs Abdomen- normal bowel sounds, nondistended, soft, nontender Extremities- + 3 bilateral pitting edema , extended to upper thigh , with sipping noted no tenderness , no increased warmth or erythema Neuro- alert, oriented x 3; no gross focal neurologic deficits Skin- warm & dry Results & Data Results & Data ([facility]) Vital Signs (Past 12 Hours) Vital Signs Temp Pulse Pulse Resp BP Pulse Ox 03/23/20 07:43 36.7 C 80 16 170/67 H 93 03/23/20 05:38 80 20 98 03/22/20 23:45 36.4 C L 74 20 152/69 H 93 03/22/20 21:21 76 162/65 H Laboratory Results 03/23/20 03/23/20 03/23/20 Range/Units 17:19 12:27 08:27 WBC (4.8-10.8) K/uL RBC (4.2-5.4) M/uL Hgb (12.0-16.0) g/dL Hct (37-47) % MCV (80-100) fL MCH (25-34) pg MCHC (32-36) g/dL RDW Std Deviation (36.4-46.3) fL RDW Coeff of Rosalba (11.5-14.5) % Plt Count (130-400) K/uL MPV (7.4-10.4) fL Sodium (136-145) mmol/L Potassium (3.5-5.1) mmol/L Chloride (98-107) mmol/L Carbon Dioxide (21-32) mmol/L Anion Gap (3-11) BUN (7-18) mg/dl Creatinine (0.6-1.2) mg/dl Est Cr Clr Drug Dosing ml/min Est GFR ( Amer) Est GFR (Non-Af Amer) BUN/Creatinine Ratio (10-20) Glucose (70-99) mg/dl POC Glucose 98 108 H 93 (70-99) mg/dl Calcium (8.5-10.1) mg/dl 03/23/20 03/23/20 03/22/20 Range/Units 06:06 06:06 20:33 WBC 7.25 (4.8-10.8) K/uL RBC 2.84 L (4.2-5.4) M/uL Hgb 8.1 L (12.0-16.0) g/dL Hct 27.0 L (37-47) % MCV 95.1 (80-100) fL MCH 28.5 (25-34) pg MCHC 30.0 L (32-36) g/dL RDW Std Deviation 61.1 H (36.4-46.3) fL RDW Coeff of Rosalba 18.2 H (11.5-14.5) % Plt Count 418 H (130-400) K/uL MPV 8.0 (7.4-10.4) fL Sodium 137 (136-145) mmol/L Potassium 4.5 D (3.5-5.1) mmol/L Chloride 103 (98-107) mmol/L Carbon Dioxide 31 (21-32) mmol/L Anion Gap 3.0 (3-11) BUN 29 H (7-18) mg/dl Creatinine 3.28 H D (0.6-1.2) mg/dl Est Cr Clr Drug Dosing 12.8 ml/min Est GFR ( Amer) 14.5 Est GFR (Non-Af Amer) 12.5 BUN/Creatinine Ratio 8.8 L (10-20) Glucose 83 (70-99) mg/dl POC Glucose 203 H (70-99) mg/dl Calcium 8.2 L (8.5-10.1) mg/dl Medications Administered Current Inpatient Medications Acetaminophen (Acetaminophen 325 Mg Tab) 650 mg PO Q4H PRN PRN Reason: Pain or Fever Stop: 04/07/20 20:30 Last Admin: 03/22/20 21:10 Dose: 650 mg Documented by: Albuterol (Albut/Ipratrop 3mg/0.5mg Neb 3 Ml Vial) 3 ml NEB Q4R PRN PRN Reason: Wheezing Stop: 04/09/20 05:26 Last Admin: 03/23/20 05:38 Dose: 3 ml Documented by: Aripiprazole (Aripiprazole 1 Mg/Ml Oral Soln 150 Ml Btl) 2 mg PO QAM [facility] Stop: 04/14/20 08:59 Last Admin: 03/23/20 08:38 Dose: 2 mg Documented by: Carvedilol (Carvedilol 12.5 Mg Tab) 12.5 mg PO BID [facility] Stop: 04/10/20 04:59 Last Admin: 03/23/20 08:39 Dose: Not Given Documented by: Clopidogrel Bisulfate (Clopidogrel Bisulfate 75 Mg Tab) 75 mg PO QAM [facility] Stop: 04/08/20 08:59 Last Admin: 03/23/20 08:52 Dose: 75 mg Documented by: Dextrose (Dextrose 50% 50 Ml Syringe) 25 - 50 ml IV UD PRN; Protocol PRN Reason: Hypoglycemia Protocol Stop: 04/07/20 21:59 Docusate Sodium (Docusate Sodium 100 Mg Cap) 100 mg PO BID [facility] Stop: 04/08/20 08:59 Last Admin: 03/23/20 08:52 Dose: 100 mg Documented by: Ferrous Sulfate (Ferrous Sulfate 325 Mg Tab) 325 mg PO QDL [facility] Stop: 04/22/20 11:29 Fluoxetine HCl (Fluoxetine Hcl 20 Mg Cap) 20 mg PO QAM [facility] Stop: 04/16/20 09:59 Last Admin: 03/23/20 08:52 Dose: 20 mg Documented by: Furosemide (Furosemide 40 Mg Tab) 100 mg PO TID [facility] Stop: 04/21/20 13:59 Last Admin: 03/23/20 08:52 Dose: 100 mg Documented by: Glucagon (Glucagon For Inj 1 Mg Vial) 1 mg IM UD PRN; Protocol PRN Reason: Hypoglycemia Protocol Stop: 04/07/20 21:59 Glucose (Glucose 40% Gel 15 Gm Tube) 15 - 30 gm PO UD PRN; Protocol PRN Reason: Hypoglycemia Protocol Stop: 04/07/20 21:59 Glucose (Glucose 10 Tabs/Tube) 4 - 8 tabs PO UD PRN; Protocol PRN Reason: Hypoglycemia Protocol Stop: 04/07/20 21:59 Heparin Sodium (Porcine) (Heparin Sod 5,000 Unit/0.5 Ml Vial) 5,000 units SQ Q12 [facility] Stop: 04/08/20 08:59 Last Admin: 03/23/20 08:38 Dose: 5,000 units Documented by: Hydralazine HCl (Hydralazine Hcl 20 Mg/Ml Vial) 10 mg IV Q6H PRN PRN Reason: hypertension Stop: 04/09/20 15:29 Last Admin: 03/21/20 23:49 Dose: 10 mg Documented by: Insulin Aspart (Insulin Aspart 100 Units/Ml 3 Ml Pen) 0 units SC ACHS [facility] Stop: 04/08/20 07:29 Last Admin: 03/23/20 08:39 Dose: Not Given Documented by: Insulin Glargine (Insulin Glargine Solostar 100 Units/Ml 3 Ml Pen) 15 units SQ QAM [facility] Stop: 04/08/20 08:59 Last Admin: 03/23/20 08:38 Dose: 15 units Documented by: Levothyroxine Sodium (Levothyroxine Sodium 200 Mcg Tablet) 200 mcg PO DAILYBB [facility] Stop: 04/08/20 06:29 Last Admin: 03/23/20 05:21 Dose: 200 mcg Documented by: Magnesium Oxide (Magnesium Oxide 400 Mg Tab) 400 mg PO TID [facility] Stop: 04/08/20 08:59 Last Admin: 03/23/20 08:52 Dose: 400 mg Documented by: Metolazone (Metolazone 5 Mg Tablet) 5 mg PO BID17 [facility] Stop: 04/21/20 10:59 Last Admin: 03/23/20 08:38 Dose: 5 mg Documented by: Miconazole Nitrate (Miconazole Nitrate Powder 43 Gm) 1 appln EXT BID [facility] Stop: 04/15/20 20:59 Last Admin: 03/23/20 08:38 Dose: 1 appln Documented by: Miscellaneous (Carbohydrates For Hypoglycemia ) 15 - 30 gm PO UD PRN PRN Reason: Hypoglycemia Treatment Stop: 04/07/20 21:59 Multivitamins/Minerals (Calcium 600mg + Vit D 400 Iu Tab) 1 tab PO QDL [facility] Stop: 04/08/20 11:29 Last Admin: 03/22/20 14:24 Dose: 1 tab Documented by: Ondansetron HCl (Ondansetron Inj 2 Mg/Ml 2 Ml Vial) 4 mg IV Q4H PRN PRN Reason: Nausea Stop: 04/14/20 06:17 Last Admin: 03/15/20 10:11 Dose: 4 mg Documented by: Pantoprazole Sodium (Pantoprazole 40 Mg Tab) [facility] Stop: 04/08/20 08:59 Last Admin: 03/23/20 08:52 Dose: 40 mg Documented by: Polyethylene Glycol (Polyethylene (Miralax) 17 Gm Pack) 17 gm PO DAILY PRN PRN Reason: Constipation Stop: 04/07/20 20:30 Tramadol HCl (Tramadol Hcl 50 Mg Tablet) 50 mg PO HS PRN PRN Reason: leg pain Stop: 04/07/20 23:09 Last Admin: 03/22/20 17:33 Dose: 50 mg Documented by: Vitamin D (Cholecalciferol 1,000 Units 25 Mcg Tab) 5,000 units PO [facility] Stop: 04/08/20 08:59 Last Admin: 03/23/20 08:51 Dose: 5,000 units Documented by: Zinc Sulfate (Zinc Sulfate 220 Mg Capsule) 220 mg PO QDL [facility] Stop: 04/08/20 11:29 Last Admin: 03/22/20 14:24 Dose: 220 mg Documented by:
[2020-03-23 09:40] LABS: BUN Creatinine Ratio 8.8 (10-20); Calcium 8.2 mg/dl (8.5-10.1); Creatinine Clr Calc Pharmacy 12.8 ml/min; Est GFR (African American) 14.5; Est GFR (Non-African American) 12.5; Potassium 4.5 mmol/L (3.5-5.1)
[2020-03-23] MEDS ORDERED: EPOETIN ALFA 10,000 UNITS/ML VIAL IV SCH (10:30)
[2020-03-23] MEDS ORDERED: EPOETIN ALFA 10,000 UNITS in SYRINGE 0 ML IV SCH (10:30)
--- NOTE | 2020-03-23 10:37 | Progress Notes ---
DATE: 03/23/2020 DIALYSIS NOTE SUBJECTIVE: The patient continues to be anuric even with the highest possible dose of diuretics. She is severely edematous and fluid overloaded and she is still complaining of some shortness of breath. She had dialysis yesterday and 2.5 liters was removed without any problem. She is getting dialysis as I speak. Catheter is working good. OBJECTIVE: VITAL SIGNS: Blood pressure is running high at 186/77, temperature 36.9, 93% on room air. CHEST: Bilateral decreased breath sounds and crackles and rhonchi bilaterally. CARDIOVASCULAR: S1 and S2, tachycardic. ABDOMEN: Soft, nontender. EXTREMITIES: Shows 4+ edema with erythematous skin changes and skin breakdown. LABORATORY TESTS: Reviewed in detail. Hemoglobin is low at 8.1, creatinine 3.28. BUN is 29. ASSESSMENT AND PLAN: An 84-year-old female who has now been declared ESRD requiring dialysis. 1. End-stage renal disease: She is still anuric despite the highest possible dose of diuretics. She will get dialysis today for 4 hours and we will try to take about 3.5 kilo of fluid off. Continue Lasix IV 100 q. 8 hour with metolazone 5 twice daily at least for today to see if we can get any urine output with diuretics. if no urine by tomorrow will cut down dose of lasix tomorrow MTDD
[2020-03-23] MEDS: CALCIUM 600MG + VIT D 400 IU TAB PO SCH ×2 (13:46→14:44)
[2020-03-23] MEDS: FERROUS SULFATE 325 MG TAB PO SCH (13:47)
[2020-03-23] MEDS: ZINC SULFATE 220 MG CAPSULE PO SCH ×2 (13:48→14:44)
[2020-03-23] MEDS: hydrALAZINE HCL 20 MG/ML VIAL IV PRN (19:34)
[2020-03-23] MEDS: ONDANSETRON INJ 2 MG/ML 2 ML VIAL IV PRN (23:36)
[2020-03-24] MEDS: LEVOTHYROXINE SODIUM 200 MCG TABLET PO SCH (05:10)
[2020-03-24 09:00] LABS: BUN Creatinine Ratio 9.3 (10-20); Calcium 8.3 mg/dl (8.5-10.1); Creatinine Clr Calc Pharmacy 14.8 ml/min; Est GFR (African American) 17.3; Magnesium 2.4 mg/dl (1.8-2.4); Phosphorus 2.9 mg/dl (2.5-4.9); Potassium 4.3 mmol/L (3.5-5.1)
[2020-03-24] MEDS: INSULIN ASPART 100 UNITS/ML 3 ML PEN SC SCH ×4 (09:09→21:28)
[2020-03-24] MEDS: HEPARIN SOD 5,000 UNIT/0.5 ML VIAL SQ SCH ×2 (09:10→21:27)
[2020-03-24] MEDS: INSULIN GLARGINE SOLOSTAR 100 UNITS/ML 3 ML PEN SQ SCH (09:11)
[2020-03-24] MEDS: MICONAZOLE NITRATE POWDER 43 GM EXT SCH ×2 (09:11→21:48)
[2020-03-24] MEDS: ARIPIprazole 1 MG/ML ORAL SOLN 150 ML BTL PO SCH (09:12)
[2020-03-24] MEDS: FUROSEMIDE 40 MG TAB PO SCH (09:14)
[2020-03-24] MEDS: MAGNESIUM OXIDE 400 MG TAB PO SCH ×3 (09:14→21:50)
[2020-03-24] MEDS: FLUoxetine HCL 20 MG CAP PO SCH (09:15)
[2020-03-24] MEDS: PANTOprazole 40 MG TAB PO SCH (09:15)
[2020-03-24] MEDS: CLOPIDOGREL BISULFATE 75 MG TAB PO SCH (09:15)
[2020-03-24] MEDS: CHOLECALCIFEROL 1,000 UNITS 25 MCG TAB PO SCH (09:16)
[2020-03-24] MEDS: metOLazone 5 MG TABLET PO SCH (09:16)
[2020-03-24] MEDS: carvediloL 12.5 MG TAB PO SCH ×3 (09:16→21:50)
[2020-03-24] MEDS: DOCUSATE SODIUM 100 MG CAP PO SCH ×2 (09:19→21:50)
--- NOTE | 2020-03-24 10:54 | Progress Notes ---
DATE: 03/24/2020 DIALYSIS NOTE SUBJECTIVE: The patient was seen during dialysis and she feels better today from breathing standpoint than yesterday. She continues to be severely oliguric with urine output of 1200 mL with the highest possible dose of diuretics. She is still very edematous. No problem with dialysis yesterday and so far no problem. Catheter is working good. OBJECTIVE: VITAL SIGNS: Blood pressure 157/65, temperature 36.8, 91% on room air, pulse rate 83. HEENT: Mucous membrane moist. NECK: Supple. Jugular venous distention positive. CHEST: Bilateral decreased breath sounds, occasional crackles. CARDIOVASCULAR: S1 and S2 irregular, systolic murmur heard. ABDOMEN: Soft, nontender. EXTREMITIES: Shows 3+ edema bilaterally with skin changes. LABORATORY TESTS: From this morning shows BUN 26, creatinine 2.8. Sodium 137, potassium 4.3, calcium 8.3. ASSESSMENT AND PLAN: An 84-year-old female who has now been declared ESRD requiring dialysis. 1. End-stage renal disease: She is still anuric despite the highest possible dose of diuretics. She will continue dialysis today for 3 hours and we will try to take about 3 kilo of fluid off. Given that the highest dose of diuretics have had absolutely no difference, we will stop IV Lasix as well as metolazone. Continue torsemide 100 daily, even at the time of discharge. She has anemia of ESRD and she is getting Procrit. MTDD
[2020-03-24] MEDS ORDERED: EPOETIN ALFA 10,000 UNITS/ML VIAL IV ONE (11:00)
[2020-03-24] MEDS: CALCIUM 600MG + VIT D 400 IU TAB PO SCH (13:56)
[2020-03-24] MEDS: FERROUS SULFATE 325 MG TAB PO SCH (13:56)
[2020-03-24] MEDS: ZINC SULFATE 220 MG CAPSULE PO SCH (13:56)
--- NOTE | 2020-03-24 14:08 | Hospitalist Progress Note ---
Date of Service March 24, 2020 Assessment & Plan (1) BARBARA (acute kidney injury): acute oligouric renal failure from ATN- now dialysis dependent ; status post dialysis Cath placement on 03/15/2020 pt oliguric, developed wheeze , worsening of bilateral lower ext edema Patient given 100 mg Lasix p.o. with metolazone, urine output 200 cc in the last 24 hours despite high-dose diuretics Plan to switch to torsemide 100 mg daily Removed 3L of fluid today (03/24) on dialysis significant vol overload/decompensated CHF ( diastolic dysfunction ) due to anuria , renal failure will need daily dialysis for few days to improve vol status appreciate nephrology eval Hyperkalemia - ordered for Lasix 100mg tid /metolazone minimal urine output getting scheduled dialysis as per Nephrology while in patient Diabetes Type 2 Continue with Lantus insulin sliding scale. Acute decompensation of Chronic diastolic congestive heart failure developed significant vol overload -bilateral lower ext extensive edema with seeping of fluid SOB /Orthopnea , pulmonary effusion due to oliguric /anuric renal failure cont dialysis for vol management Hypertension. BP remains elevated due to vol overload D/c Amlodipine : for lower ext edema Coreg and hydralazine 50 mg 3 times daily PRN IV hydralazine vol management with HD Lower extremity infection of the toes with methicillin-resistant Staphylococcus aureus - Completed course of IV clindamycin - Wound care consulted Coronary artery disease, mild nonobstructive CAD on catheterization in 2011. Continue beta opal, Plavix, Anemia of chronic kidney disease, iron deficiency anemia, on iron supplements. Received 2 units of PRBC at another hospital. - Hg 9.7 --> 9.3 received Venofar Depression and anxiety. Continue Abilify, Wellbutrin./appreciate input form Psychiatry History of cerebrovascular accident -- on aspirin and Plavix. Deep venous thrombosis prophylaxis. heparin subQ Disposition pt will need continued hospital stay for vol overload /decompensated CHF /daily dialysis need Referral made to [facility], patient is agreeable for rehab arrangements made for out pt dialysis at [facility] field contact person: daughter Admission and Anticipated Discharge Date Admission Date: March 08, 2020 Subjective Patient sitting up in a chair, in no acute distress. She is eating dinner. Denies any shortness of breath. Also denies any fever chills, chest pain, abdominal pain. She says that she feels better today. Continues to have significant lower extremity edema. Review of Systems Review of Systems: All systems reviewed & are unremarkable except as noted in HPI & below Constitutional: no fever and no chills Respiratory: no cough and no dyspnea Cardiovascular: no chest pain and no palpitations Gastrointestinal: no abdominal pain, no nausea and no vomiting Physical Exam Physical Exam: General- oriented x 3, not in distress, speaks in full sentences with no effort or accessory muscle use Eyes- anicteric, EOMI Neck- no JVD Lungs- mildly decreased breath sounds at the bases, no crackles or wheezing Heart- normal rate, regular rhythm; no murmurs Abdomen- normal bowel sounds, nondistended, soft, nontender Extremities- + 3 bilateral pitting edema , extended to upper thigh , with sipping noted no tenderness , no increased warmth or erythema Neuro- alert, oriented x 3; no gross focal neurologic deficits Skin- warm & dry Results & Data Results & Data ([facility]) Vital Signs (Past 12 Hours) Vital Signs Temp Pulse Pulse Resp BP BP Pulse Ox 03/24/20 13:20 69 117/86 03/24/20 13:00 76 146/66 H 03/24/20 12:40 73 162/66 H 03/24/20 12:20 74 165/81 H 03/24/20 12:00 75 158/68 H 03/24/20 11:40 74 168/70 H 03/24/20 11:20 75 171/71 H 03/24/20 11:00 77 165/67 H 03/24/20 10:40 79 169/70 H 03/24/20 10:20 80 148/60 H 03/24/20 10:10 36.9 C 80 03/24/20 08:21 36.8 C 83 16 157/65 H 91 Laboratory Results 03/24/20 03/24/20 03/24/20 Range/Units 11:59 08:19 08:16 Sodium 137 (136-145) mmol/L Potassium 4.3 (3.5-5.1) mmol/L Chloride 103 (98-107) mmol/L Carbon Dioxide 31 (21-32) mmol/L Anion Gap 4.0 (3-11) BUN 26 H (7-18) mg/dl Creatinine 2.82 H D (0.6-1.2) mg/dl Est Cr Clr Drug Dosing 14.8 ml/min Est GFR ( Amer) 17.3 Est GFR (Non-Af Amer) 15.0 BUN/Creatinine Ratio 9.3 L (10-20) Glucose 87 (70-99) mg/dl POC Glucose 116 H 95 (70-99) mg/dl Calcium 8.3 L (8.5-10.1) mg/dl Phosphorus 2.9 (2.5-4.9) mg/dl Magnesium 2.4 (1.8-2.4) mg/dl 03/23/20 03/23/20 03/23/20 Range/Units 23:39 21:02 17:19 Sodium (136-145) mmol/L Potassium (3.5-5.1) mmol/L Chloride (98-107) mmol/L Carbon Dioxide (21-32) mmol/L Anion Gap (3-11) BUN (7-18) mg/dl Creatinine (0.6-1.2) mg/dl Est Cr Clr Drug Dosing ml/min Est GFR ( Amer) Est GFR (Non-Af Amer) BUN/Creatinine Ratio (10-20) Glucose (70-99) mg/dl POC Glucose 129 H 212 H 98 (70-99) mg/dl Calcium (8.5-10.1) mg/dl Phosphorus (2.5-4.9) mg/dl Magnesium (1.8-2.4) mg/dl Medications Administered Current Inpatient Medications Acetaminophen (Acetaminophen 325 Mg Tab) 650 mg PO Q4H PRN PRN Reason: Pain or Fever Stop: 04/07/20 20:30 Last Admin: 03/22/20 21:10 Dose: 650 mg Documented by: Albuterol (Albut/Ipratrop 3mg/0.5mg Neb 3 Ml Vial) 3 ml NEB Q4R PRN PRN Reason: Wheezing Stop: 04/09/20 05:26 Last Admin: 03/23/20 05:38 Dose: 3 ml Documented by: Aripiprazole (Aripiprazole 1 Mg/Ml Oral Soln 150 Ml Btl) 2 mg PO QAM [facility] Stop: 04/14/20 08:59 Last Admin: 03/24/20 09:12 Dose: 2 mg Documented by: Carvedilol (Carvedilol 12.5 Mg Tab) 12.5 mg PO BID [facility] Stop: 04/10/20 04:59 Last Admin: 03/24/20 13:56 Dose: 12.5 mg Documented by: Clopidogrel Bisulfate (Clopidogrel Bisulfate 75 Mg Tab) 75 mg PO QAM [facility] Stop: 04/08/20 08:59 Last Admin: 03/24/20 09:15 Dose: 75 mg Documented by: Dextrose (Dextrose 50% 50 Ml Syringe) 25 - 50 ml IV UD PRN; Protocol PRN Reason: Hypoglycemia Protocol Stop: 04/07/20 21:59 Docusate Sodium (Docusate Sodium 100 Mg Cap) 100 mg PO BID [facility] Stop: 04/08/20 08:59 Last Admin: 03/24/20 09:19 Dose: 100 mg Documented by: Ferrous Sulfate (Ferrous Sulfate 325 Mg Tab) 325 mg PO QDL [facility] Stop: 04/22/20 11:29 Last Admin: 03/24/20 13:56 Dose: 325 mg Documented by: Fluoxetine HCl (Fluox[facility] Hcl 20 Mg Cap) [facility] Stop: 04/16/20 09:59 Last Admin: 03/24/20 09:15 Dose: 20 mg Documented by: Glucagon (Glucagon For Inj 1 Mg Vial) 1 mg IM UD PRN; Protocol PRN Reason: Hypoglycemia Protocol Stop: 04/07/20 21:59 Glucose (Glucose 40% Gel 15 Gm Tube) 15 - 30 gm PO UD PRN; Protocol PRN Reason: Hypoglycemia Protocol Stop: 04/07/20 21:59 Glucose (Glucose 10 Tabs/Tube) 4 - 8 tabs PO UD PRN; Protocol PRN Reason: Hypoglycemia Protocol Stop: 04/07/20 21:59 Heparin Sodium (Porcine) (Heparin Sod 5,000 Unit/0.5 Ml Vial) 5,000 units SQ Q12 [facility] Stop: 04/08/20 08:59 Last Admin: 03/24/20 09:10 Dose: 5,000 units Documented by: Hydralazine HCl (Hydralazine Hcl 20 Mg/Ml Vial) 10 mg IV Q6H PRN PRN Reason: hypertension Stop: 04/09/20 15:29 Last Admin: 03/23/20 19:34 Dose: 10 mg Documented by: Insulin Aspart (Insulin Aspart 100 Units/Ml 3 Ml Pen) 0 units SC ACHS [facility] Stop: 04/08/20 07:29 Last Admin: 03/24/20 13:42 Dose: Not Given Documented by: Insulin Glargine (Insulin Glargine Solostar 100 Units/Ml 3 Ml Pen) 15 units SQ QAM [facility] Stop: 04/08/20 08:59 Last Admin: 03/24/20 09:11 Dose: 15 units Documented by: Levothyroxine Sodium (Levothyroxine Sodium 200 Mcg Tablet) 200 mcg PO DAILYBB [facility] Stop: 04/08/20 06:29 Last Admin: 03/24/20 05:10 Dose: 200 mcg Documented by: Magnesium Oxide (Magnesium Oxide 400 Mg Tab) 400 mg PO TID [facility] Stop: 04/08/20 08:59 Last Admin: 03/24/20 13:56 Dose: 400 mg Documented by: Miconazole Nitrate (Miconazole Nitrate Powder 43 Gm) 1 appln EXT BID [facility] Stop: 04/15/20 20:59 Last Admin: 03/24/20 09:11 Dose: 1 appln Documented by: Miscellaneous (Carbohydrates For Hypoglycemia ) 15 - 30 gm PO UD PRN PRN Reason: Hypoglycemia Treatment Stop: 04/07/20 21:59 Multivitamins/Minerals (Calcium 600mg + Vit D 400 Iu Tab) 1 tab PO QDL [facility] Stop: 04/08/20 11:29 Last Admin: 03/24/20 13:56 Dose: 1 tab Documented by: Ondansetron HCl (Ondansetron Inj 2 Mg/Ml 2 Ml Vial) 4 mg IV Q4H PRN PRN Reason: Nausea Stop: 04/14/20 06:17 Last Admin: 03/23/20 23:36 Dose: 4 mg Documented by: Pantoprazole Sodium (Pantoprazole 40 Mg Tab) [facility] Stop: 04/08/20 08:59 Last Admin: 03/24/20 09:15 Dose: 40 mg Documented by: Polyethylene Glycol (Polyethylene (Miralax) 17 Gm Pack) 17 gm PO DAILY PRN PRN Reason: Constipation Stop: 04/07/20 20:30 Torsemide (Torsemide 100 Mg Tab) 100 mg PO QAM [facility] Stop: 04/24/20 08:59 Tramadol HCl (Tramadol Hcl 50 Mg Tablet) 50 mg PO HS PRN PRN Reason: leg pain Stop: 04/07/20 23:09 Last Admin: 03/23/20 19:34 Dose: 50 mg Documented by: Vitamin D (Cholecalciferol 1,000 Units 25 Mcg Tab) 5,000 units PO QAM [facility] Stop: 04/08/20 08:59 Last Admin: 03/24/20 09:16 Dose: 5,000 units Documented by: Zinc Sulfate (Zinc Sulfate 220 Mg Capsule) 220 mg PO QDL [facility] Stop: 04/08/20 11:29 Last Admin: 03/24/20 13:56 Dose: 220 mg Documented by:
[2020-03-24] MEDS: hydrALAZINE HCL 20 MG/ML VIAL IV PRN (21:49)
[2020-03-24] MEDS: traMADol HCL 50 MG TABLET PO PRN (21:50)
[2020-03-25] MEDS: ACETAMINOPHEN 325 MG TAB PO PRN ×2 (00:03→06:03)
[2020-03-25] MEDS: LEVOTHYROXINE SODIUM 200 MCG TABLET PO SCH (06:03)
--- NOTE | 2020-03-25 08:31 | Hospitalist Progress Note ---
Date of Service March 25, 2020 Assessment & Plan (1) BARBARA (acute kidney injury): acute oligouric renal failure from ATN- now ESRD dialysis dependent ; status post dialysis Cath placement on 03/15/2020 pt oliguric, developed wheeze , worsening of bilateral lower ext edema Patient given 100 mg Lasix p.o. with metolazone, urine output minimal despite high-dose diuretics Switch to torsemide 100 mg daily - plan to discharge on this as well Removed 3L of fluid yesterday (03/24) on dialysis, break from HD today (03/25), plan to resume HD tmrw significant vol overload/decompensated CHF ( diastolic dysfunction ) due to anuria , renal failure will need daily dialysis for few days to improve vol status appreciate nephrology eval Hyperkalemia - ordered for Lasix 100mg tid /metolazone minimal urine output getting scheduled dialysis as per Nephrology while in patient Diabetes Type 2 Continue with Lantus insulin sliding scale. Acute decompensation of Chronic diastolic congestive heart failure developed significant vol overload -bilateral lower ext extensive edema with seeping of fluid SOB /Orthopnea , pulmonary effusion due to oliguric /anuric renal failure cont dialysis for vol management clinically improved after several rounds of HD and fluid removal Hypertension. BP remains elevated due to vol overload D/c Amlodipine : for lower ext edema Coreg and hydralazine 50 mg 3 times daily PRN IV hydralazine vol management with HD Lower extremity infection of the toes with methicillin-resistant Staphylococcus aureus - Completed course of IV clindamycin - Wound care consulted Coronary artery disease, mild nonobstructive CAD on catheterization in 2011. Continue beta opal, Plavix, Anemia of chronic kidney disease, iron deficiency anemia, on iron supplements. Received 2 units of PRBC at another hospital. - Hg 9.7 --> 9.3 received Venofar Depression and anxiety. Continue Abilify, Wellbutrin./appreciate input form Psychiatry History of cerebrovascular accident -- on aspirin and Plavix. Deep venous thrombosis prophylaxis. 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 Denies any shortness of breath. Also denies any fever chills, chest pain, abdominal pain. Continues to have significant lower extremity edema. No HD today, plan to resume HD and about 3 kg of fluid removal tomorrow. Switched to torsemide 100 mg daily. Review of Systems Review of Systems: All systems reviewed & are unremarkable except as noted in HPI & below Constitutional: no fever and no chills Respiratory: no cough and no dyspnea Cardiovascular: no chest pain and no palpitations Gastrointestinal: no abdominal pain, no nausea and no vomiting Physical Exam Physical Exam: General- oriented x 3, not in distress, speaks in full sentences with no effort or accessory muscle use Eyes- anicteric, EOMI Neck- no JVD Lungs- mildly decreased breath sounds at the bases, no crackles or wheezing Heart- normal rate, regular rhythm; no murmurs Abdomen- normal bowel sounds, nondistended, soft, nontender Extremities- + 3 bilateral pitting edema , extended to upper thigh , with seeping noted some tenderness to palpation , no increased warmth or erythema Neuro- alert, oriented x 3; no gross focal neurologic deficits Skin- warm & dry Results & Data Results & Data ([facility]) Vital Signs (Past 12 Hours) Vital Signs Temp Pulse Pulse Resp BP BP Pulse Ox 03/25/20 08:05 36.6 C 76 16 163/67 H 94 03/24/20 23:50 36.6 C 79 20 154/71 H 94 03/24/20 21:48 36.8 C 78 16 164/63 H 95 Laboratory Results 03/25/20 03/25/20 03/25/20 Range/Units 17:17 12:15 08:49 Sodium (136-145) mmol/L Potassium (3.5-5.1) mmol/L Chloride (98-107) mmol/L Carbon Dioxide (21-32) mmol/L Anion Gap (3-11) BUN (7-18) mg/dl Creatinine (0.6-1.2) mg/dl Est Cr Clr Drug Dosing ml/min Est GFR ( Amer) Est GFR (Non-Af Amer) BUN/Creatinine Ratio (-20) Glucose (70-99) mg/dl POC Glucose 147 H 184 H 98 (70-99) mg/dl Calcium (8.5-10.1) mg/dl 03/25/20 03/24/20 Range/Units 08:34 21:03 Sodium 136 (136-145) mmol/L Potassium 4.4 (3.5-5.1) mmol/L Chloride 103 (98-107) mmol/L Carbon Dioxide 31 (21-32) mmol/L Anion Gap 2.0 L (3-11) BUN 25 H (7-18) mg/dl Creatinine 2.81 H (0.6-1.2) mg/dl Est Cr Clr Drug Dosing 14.5 ml/min Est GFR ( Amer) 17.4 Est GFR (Non-Af Amer) 15.0 BUN/Creatinine Ratio 8.8 L (10-20) Glucose 98 (70-99) mg/dl POC Glucose 173 H (70-99) mg/dl Calcium 8.5 (8.5-10.1) mg/dl Medications Administered Current Inpatient Medications Acetaminophen (Acetaminophen 325 Mg Tab) 650 mg PO Q4H PRN PRN Reason: Pain or Fever Stop: 04/07/20 20:30 Last Admin: 03/25/20 06:03 Dose: 650 mg Documented by: Albuterol (Albut/Ipratrop 3mg/0.5mg Neb 3 Ml Vial) 3 ml NEB Q4R PRN PRN Reason: Wheezing Stop: 04/09/20 05:26 Last Admin: 03/23/20 05:38 Dose: 3 ml Documented by: Aripiprazole (Aripiprazole 1 Mg/Ml Oral Soln 150 Ml Btl) 2 mg PO QAM [facility] Stop: 04/14/20 08:59 Last Admin: 03/24/20 09:12 Dose: 2 mg Documented by: Carvedilol (Carvedilol 12.5 Mg Tab) 12.5 mg PO BID [facility] Stop: 04/10/20 04:59 Last Admin: 03/24/20 21:50 Dose: 12.5 mg Documented by: Clopidogrel Bisulfate (Clopidogrel Bisulfate 75 Mg Tab) 75 mg PO QAM [facility] Stop: 04/08/20 08:59 Last Admin: 03/24/20 09:15 Dose: 75 mg Documented by: Dextrose (Dextrose 50% 50 Ml Syringe) 25 - 50 ml IV UD PRN; Protocol PRN Reason: Hypoglycemia Protocol Stop: 04/07/20 21:59 Docusate Sodium (Docusate Sodium 100 Mg Cap) 100 mg PO BID [facility] Stop: 04/08/20 08:59 Last Admin: 03/24/20 21:50 Dose: 100 mg Documented by: Ferrous Sulfate (Ferrous Sulfate 325 Mg Tab) 325 mg PO QDL [facility] Stop: 04/22/20 11:29 Last Admin: 03/24/20 13:56 Dose: 325 mg Documented by: Fluoxetine HCl (Fluoxetine Hcl 20 Mg Cap) 20 mg PO QAM [facility] Stop: 04/16/20 09:59 Last Admin: 03/24/20 09:15 Dose: 20 mg Documented by: Glucagon (Glucagon For Inj 1 Mg Vial) 1 mg IM UD PRN; Protocol PRN Reason: Hypoglycemia Protocol Stop: 04/07/20 21:59 Glucose (Glucose 40% Gel 15 Gm Tube) 15 - 30 gm PO UD PRN; Protocol PRN Reason: Hypoglycemia Protocol Stop: 04/07/20 21:59 Glucose (Glucose 10 Tabs/Tube) 4 - 8 tabs PO UD PRN; Protocol PRN Reason: Hypoglycemia Protocol Stop: 04/07/20 21:59 Heparin Sodium (Porcine) (Heparin Sod 5,000 Unit/0.5 Ml Vial) 5,000 units SQ Q12 [facility] Stop: 04/08/20 08:59 Last Admin: 03/24/20 21:27 Dose: 5,000 units Documented by: Hydralazine HCl (Hydralazine Hcl 20 Mg/Ml Vial) 10 mg IV Q6H PRN PRN Reason: hypertension Stop: 04/09/20 15:29 Last Admin: 03/24/20 21:49 Dose: 10 mg Documented by: Insulin Aspart (Insulin Aspart 100 Units/Ml 3 Ml Pen) 0 units SC ACHS [facility] Stop: 04/08/20 07:29 Last Admin: 03/24/20 21:28 Dose: 1 units Documented by: Insulin Glargine (Insulin Glargine Solostar 100 Units/Ml 3 Ml Pen) 15 units SQ QAM [facility] Stop: 04/08/20 08:59 Last Admin: 03/24/20 09:11 Dose: 15 units Documented by: Levothyroxine Sodium (Levothyroxine Sodium 200 Mcg Tablet) 200 mcg PO DAILYBB [facility] Stop: 04/08/20 06:29 Last Admin: 03/25/20 06:03 Dose: 200 mcg Documented by: Magnesium Oxide (Magnesium Oxide 400 Mg Tab) 400 mg PO TID [facility] Stop: 04/08/20 08:59 Last Admin: 03/24/20 21:50 Dose: 400 mg Documented by: Miconazole Nitrate (Miconazole Nitrate Powder 43 Gm) 1 appln EXT BID [facility] Stop: 04/15/20 20:59 Last Admin: 03/24/20 21:48 Dose: 1 appln Documented by: Miscellaneous (Carbohydrates For Hypoglycemia ) 15 - 30 gm PO UD PRN PRN Reason: Hypoglycemia Treatment Stop: 04/07/20 21:59 Multivitamins/Minerals (Calcium 600mg + Vit D 400 Iu Tab) 1 tab PO QDL [facility] Stop: 04/08/20 11:29 Last Admin: 03/24/20 13:56 Dose: 1 tab Documented by: Ondansetron HCl (Ondansetron Inj 2 Mg/Ml 2 Ml Vial) 4 mg IV Q4H PRN PRN Reason: Nausea Stop: 04/14/20 06:17 Last Admin: 03/23/20 23:36 Dose: 4 mg Documented by: Pantoprazole Sodium (Pantoprazole 40 Mg Tab) [facility] [place]: 04/08/20 08:59 Last Admin: 03/24/20 09:15 Dose: 40 mg Documented by: Polyethylene Glycol (Polyethylene (Miralax) 17 Gm Pack) 17 gm PO DAILY PRN PRN Reason: Constipation Stop: 04/07/20 20:30 Torsemide (Torsemide 100 Mg Tab) [facility] [place]: 04/24/20 08:59 Tramadol HCl (Tramadol Hcl 50 Mg Tablet) 50 mg PO HS PRN PRN Reason: leg pain Stop: 04/07/20 23:09 Last Admin: 03/24/20 21:50 Dose: 50 mg Documented by: Vitamin D (Cholecalciferol 1,000 Units 25 Mcg Tab) 5,000 units PO QAM [facility] Stop: 04/08/20 08:59 Last Admin: 03/24/20 09:16 Dose: 5,000 units Documented by: Zinc Sulfate (Zinc Sulfate 220 Mg Capsule) 220 mg PO QDL [facility] Stop: 04/08/20 11:29 Last Admin: 03/24/20 13:56 Dose: 220 mg Documented by:
[2020-03-25 09:07] LABS: BUN Creatinine Ratio 8.8 (10-20); Calcium 8.5 mg/dl (8.5-10.1); Creatinine Clr Calc Pharmacy 14.5 ml/min; Est GFR (African American) 17.4; Potassium 4.4 mmol/L (3.5-5.1)
[2020-03-25] MEDS: INSULIN ASPART 100 UNITS/ML 3 ML PEN SC SCH ×4 (09:25→21:06)
[2020-03-25] MEDS: INSULIN GLARGINE SOLOSTAR 100 UNITS/ML 3 ML PEN SQ SCH (09:26)
[2020-03-25] MEDS: HEPARIN SOD 5,000 UNIT/0.5 ML VIAL SQ SCH ×2 (10:18→21:05)
[2020-03-25] MEDS: ARIPIprazole 1 MG/ML ORAL SOLN 150 ML BTL PO SCH (10:21)
[2020-03-25] MEDS: carvediloL 12.5 MG TAB PO SCH ×2 (10:22→21:05)
[2020-03-25] MEDS: DOCUSATE SODIUM 100 MG CAP PO SCH ×2 (10:22→21:05)
[2020-03-25] MEDS: MAGNESIUM OXIDE 400 MG TAB PO SCH (10:23)
[2020-03-25] MEDS: CLOPIDOGREL BISULFATE 75 MG TAB PO SCH (10:23)
[2020-03-25] MEDS: TORSEMIDE 100 MG TAB PO SCH (10:23)
[2020-03-25] MEDS: PANTOprazole 40 MG TAB PO SCH (10:23)
[2020-03-25] MEDS: FLUoxetine HCL 20 MG CAP PO SCH (10:24)
[2020-03-25] MEDS: CHOLECALCIFEROL 1,000 UNITS 25 MCG TAB PO SCH (10:25)
--- NOTE | 2020-03-25 10:40 | Progress Notes ---
DATE: 03/25/2020 SUBJECTIVE: The patient feels her breathing is significantly better after [id number] dialysis and significant amount of fluid removal. She did not have any problem with dialysis yesterday. No cramping and no hypertension. OBJECTIVE: VITAL SIGNS: Blood pressure even now is 163/67, temperature 36.6 degrees Celsius, 94% on room air. HEENT: Mucous membrane is moist. NECK: Supple. CHEST: Bilateral decreased breath sounds, occasional crackles. CARDIOVASCULAR: S1 and S2, regular. ABDOMEN: Soft, nontender. EXTREMITIES: Shows 3-4+ edema, pitting type with skin breakdown and red spots. LABORATORY TESTS: From this morning shows sodium 136, potassium 4.4, BUN is 25, creatinine is 2.81. ASSESSMENT AND PLAN: An 84-year-old female who has now been declared ESRD requiring dialysis. 1. End-stage renal disease: She is still pretty much anuric with less than 200 mL of urine. Even the highest possible dose of IV Lasix did not make a difference and has since then been stopped. We will give her a break from dialysis today. We will do dialysis again tomorrow for 3 hours and take another 3 kilo of fluid off. She likely needs a few more dialysis for more aggressive fluid removal before she is stable for discharge. Continue torsemide 100 daily even at the time of discharge. She has anemia of ESRD and she is getting Procrit. MTDD
[2020-03-25] MEDS: CALCIUM 600MG + VIT D 400 IU TAB PO SCH (14:02)
[2020-03-25] MEDS: MICONAZOLE NITRATE POWDER 43 GM EXT SCH ×2 (14:02→21:06)
[2020-03-25] MEDS: FERROUS SULFATE 325 MG TAB PO SCH (14:03)
[2020-03-25] MEDS: ZINC SULFATE 220 MG CAPSULE PO SCH (14:04)
[2020-03-25] MEDS: hydrALAZINE HCL 20 MG/ML VIAL IV PRN ×2 (15:20→23:34)
[2020-03-26] MEDS: traMADol HCL 50 MG TABLET PO PRN (02:48)
[2020-03-26] MEDS: LEVOTHYROXINE SODIUM 200 MCG TABLET PO SCH (05:51)
[2020-03-26] MEDS: ONDANSETRON INJ 2 MG/ML 2 ML VIAL IV PRN (06:20)
[2020-03-26] MEDS ORDERED: EPOETIN ALFA 10,000 UNITS/ML VIAL IV ONE (07:00)
--- NOTE | 2020-03-26 08:09 | Hospitalist Progress Note ---
Date of Service March 26, 2020 Assessment & Plan (1) BARBARA (acute kidney injury): Acute oligouric renal failure from ATN- now ESRD dialysis dependent status post dialysis Cath placement on 03/15/2020 pt oliguric, developed wheeze , shortness of breath, worsening of bilateral lower ext edema Patient given 100 mg Lasix with metolazone, urine output minimal despite high- dose diuretics Switched to torsemide 100 mg daily - plan to discharge on this as well Removed 3L of fluid on (03/24) on dialysis, break from HD on (03/25) Currently patient is on dialysis, plan to remove 3.5 L fluid (03/26) significant vol overload/decompensated CHF ( diastolic dysfunction ) due to anuria , renal failure will need daily dialysis for few days to improve vol status appreciate nephrology eval Hyperkalemia ordered for Lasix 100mg tid /metolazone minimal urine output getting scheduled dialysis as per Nephrology while in patient Diabetes Type 2 Continue with Lantus insulin sliding scale. Acute decompensation of Chronic diastolic congestive heart failure developed significant vol overload -bilateral lower ext extensive edema with seeping of fluid SOB /Orthopnea , pulmonary effusion due to oliguric /anuric renal failure cont dialysis for vol management clinically improved after several rounds of HD and fluid removal Hypertension. BP remains elevated due to vol overload D/c Amlodipine : for lower ext edema Coreg and hydralazine 50 mg 3 times daily PRN IV hydralazine vol management with HD Lower extremity infection of the toes with methicillin-resistant Staphylococcus aureus - Completed course of IV clindamycin - Wound care consulted Coronary artery disease, mild nonobstructive CAD on catheterization in 2011. Continue beta opal, Plavix, Anemia of chronic kidney disease, iron deficiency anemia, on iron supplements. Received 2 units of PRBC at another hospital. - Hg 9.7 --> 9.3 received Venofar Depression and anxiety. Continue Abilify, Wellbutrin./appreciate input form Psychiatry History of cerebrovascular accident -- on aspirin and Plavix. Deep venous thrombosis prophylaxis. 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 She states that she felt short of breath this morning again and also her lower extremities were bothering her, she has still some pain especially in the lower parts of her extremities. Currently says she is more comfortable, and shortness of breath has much improved, denies any chest pain, denies any abdominal pain nausea or vomiting. Plan to remove 3-1/2 L of fluid today on dialysis. Review of Systems Review of Systems: All systems reviewed & are unremarkable except as noted in HPI & below Constitutional: no fever and no chills Respiratory: + dyspnea (no improved); no cough Cardiovascular: + edema (b/l LE edema); no chest pain and no palpitations Gastrointestinal: + nausea (now improved); no abdominal pain and no vomiting Physical Exam Physical Exam: General- oriented x 3, not in distress, speaks in full sentences with no effort or accessory muscle use, now on supplemental oxygen, 2 L/min, satting 98% Eyes- anicteric, EOMI Lungs- mildly decreased breath sounds at the bases, mild crackles, no wheezing Heart- normal rate, regular rhythm; no murmurs Abdomen- normal bowel sounds, nondistended, soft, nontender Extremities- + 3 bilateral pitting edema , with seeping now crusted over noted, some tenderness to palpation , venous stasis derm. change noted Neuro- alert, oriented x 3; no gross focal neurologic deficits Skin- warm & dry Results & Data Results & Data ([facility]) Vital Signs (Past 12 Hours) Vital Signs Temp Pulse Pulse Resp BP BP Pulse Ox 03/26/20 07:22 36.5 C 78 16 157/65 H 98 03/25/20 23:16 36.8 C 81 18 175/65 H 91 Medications Administered Current Inpatient Medications Acetaminophen (Acetaminophen 325 Mg Tab) 650 mg PO Q4H PRN PRN Reason: Pain or Fever Stop: 04/07/20 20:30 Last Admin: 03/25/20 06:03 Dose: 650 mg Documented by: Albuterol (Albut/Ipratrop 3mg/0.5mg Neb 3 Ml Vial) 3 ml NEB Q4R PRN PRN Reason: Wheezing Stop: 04/09/20 05:26 Last Admin: 03/23/20 05:38 Dose: 3 ml Documented by: Aripiprazole (Aripiprazole 1 Mg/Ml Oral Soln 150 Ml Btl) 2 mg PO QAM [facility] Stop: 04/14/20 08:59 Last Admin: 03/25/20 10:21 Dose: 2 mg Documented by: Carvedilol (Carvedilol 12.5 Mg Tab) 12.5 mg PO BID [facility] Stop: 04/10/20 04:59 Last Admin: 03/25/20 21:05 Dose: 12.5 mg Documented by: Clopidogrel Bisulfate (Clopidogrel Bisulfate 75 Mg Tab) 75 mg PO QAM [facility] Stop: 04/08/20 08:59 Last Admin: 03/25/20 10:23 Dose: 75 mg Documented by: Dextrose (Dextrose 50% 50 Ml Syringe) 25 - 50 ml IV UD PRN; Protocol PRN Reason: Hypoglycemia Protocol Stop: 04/07/20 21:59 Docusate Sodium (Docusate Sodium 100 Mg Cap) 100 mg PO BID [facility] Stop: 04/08/20 08:59 Last Admin: 03/25/20 21:05 Dose: 100 mg Documented by: Ferrous Sulfate (Ferrous Sulfate 325 Mg Tab) 325 mg PO QDL [facility] Stop: 04/22/20 11:29 Last Admin: 03/25/20 14:03 Dose: 325 mg Documented by: Fluoxetine HCl (Fluoxetine Hcl 20 Mg Cap) 20 mg PO QAM [facility] Stop: 04/16/20 09:59 Last Admin: 03/25/20 10:24 Dose: 20 mg Documented by: Glucagon (Glucagon For Inj 1 Mg Vial) 1 mg IM UD PRN; Protocol PRN Reason: Hypoglycemia Protocol Stop: 04/07/20 21:59 Glucose (Glucose 40% Gel 15 Gm Tube) 15 - 30 gm PO UD PRN; Protocol PRN Reason: Hypoglycemia Protocol Stop: 04/07/20 21:59 Glucose (Glucose 10 Tabs/Tube) 4 - 8 tabs PO UD PRN; Protocol PRN Reason: Hypoglycemia Protocol Stop: 04/07/20 21:59 Heparin Sodium (Porcine) (Heparin Sod 5,000 Unit/0.5 Ml Vial) 5,000 units SQ Q12 [facility] Stop: 04/08/20 08:59 Last Admin: 03/25/20 21:05 Dose: 5,000 units Documented by: Hydralazine HCl (Hydralazine Hcl 20 Mg/Ml Vial) 10 mg IV Q6H PRN PRN Reason: hypertension Stop: 04/09/20 15:29 Last Admin: 03/25/20 23:34 Dose: 10 mg Documented by: Insulin Aspart (Insulin Aspart 100 Units/Ml 3 Ml Pen) 0 units SC ACHS [facility] Stop: 04/08/20 07:29 Last Admin: 03/25/20 21:06 Dose: Not Given Documented by: Insulin Glargine (Insulin Glargine Solostar 100 Units/Ml 3 Ml Pen) 15 units SQ QAM [facility] Stop: 04/08/20 08:59 Last Admin: 03/25/20 09:26 Dose: 15 units Documented by: Levothyroxine Sodium (Levothyroxine Sodium 200 Mcg Tablet) 200 mcg PO DAILYBB [facility] Stop: 04/08/20 06:29 Last Admin: 03/26/20 05:51 Dose: 200 mcg Documented by: Miconazole Nitrate (Miconazole Nitrate Powder 43 Gm) 1 appln EXT BID [facility] Stop: 04/15/20 20:59 Last Admin: 03/25/20 21:06 Dose: 1 appln Documented by: Miscellaneous (Carbohydrates For Hypoglycemia ) 15 - 30 gm PO UD PRN PRN Reason: Hypoglycemia Treatment Stop: 04/07/20 21:59 Multivitamins/Minerals (Calcium 600mg + Vit D 400 Iu Tab) 1 tab PO QDL [facility] Stop: 04/08/20 11:29 Last Admin: 03/25/20 14:02 Dose: 1 tab Documented by: Ondansetron HCl (Ondansetron Inj 2 Mg/Ml 2 Ml Vial) 4 mg IV Q4H PRN PRN Reason: Nausea Stop: 04/14/20 06:17 Last Admin: 03/26/20 06:20 Dose: 4 mg Documented by: Pantoprazole Sodium (Pantoprazole 40 Mg Tab) 40 mg PO QAM [facility] Stop: 04/08/20 08:59 Last Admin: 03/25/20 10:23 Dose: 40 mg Documented by: Polyethylene Glycol (Polyethylene (Miralax) 17 Gm Pack) 17 gm PO DAILY PRN PRN Reason: Constipation Stop: 04/07/20 20:30 Torsemide (Torsemide 100 Mg Tab) 100 mg PO QAM [facility] Stop: 04/24/20 08:59 Last Admin: 03/25/20 10:23 Dose: 100 mg Documented by: Tramadol HCl (Tramadol Hcl 50 Mg Tablet) 50 mg PO HS PRN PRN Reason: leg pain Stop: 04/07/20 23:09 Last Admin: 03/26/20 02:48 Dose: 50 mg Documented by: Vitamin D (Cholecalciferol 1,000 Units 25 Mcg Tab) 5,000 units PO QAM [facility] Stop: 04/08/20 08:59 Last Admin: 03/25/20 10:25 Dose: 5,000 units Documented by: Zinc Sulfate (Zinc Sulfate 220 Mg Capsule) 220 mg PO QDL [facility] Stop: 04/08/20 11:29 Last Admin: 03/25/20 14:04 Dose: 220 mg Documented by:
[2020-03-26] MEDS: MICONAZOLE NITRATE POWDER 43 GM EXT SCH ×2 (08:30→20:30)
[2020-03-26] MEDS: INSULIN ASPART 100 UNITS/ML 3 ML PEN SC SCH ×4 (12:06→20:26)
[2020-03-26 14:09] LABS: Hematocrit (blood only) 31.6 % (37-47); Hemoglobin 9.5 g/dL (12.0-16.0); Mean Corpuscular Hemoglobin 28.9 pg (25-34); Mean Corpuscular Hgb Conc 30.1 g/dL (32-36); Mean Platelet Volume 8.3 fL (7.4-10.4); Platelet Count 342 K/uL (130-400); RDW Coefficient of Variation 17.7 % (11.5-14.5); RDW Standard Deviation 61.7 fL (36.4-46.3); Red Blood Count 3.29 M/uL (4.2-5.4); White Blood Count 6.09 K/uL (4.8-10.8)
[2020-03-26 14:29] LABS: BUN Creatinine Ratio 7.7 (10-20); Calcium 8.1 mg/dl (8.5-10.1); Creatinine Clr Calc Pharmacy 20.5 ml/min; Est GFR (African American) 26.6; Magnesium 2.3 mg/dl (1.8-2.4); Potassium 3.7 mmol/L (3.5-5.1)
[2020-03-26] MEDS: HEPARIN SOD 5,000 UNIT/0.5 ML VIAL SQ SCH ×2 (14:29→20:27)
[2020-03-26] MEDS: TORSEMIDE 100 MG TAB PO SCH (14:31)
[2020-03-26] MEDS: CLOPIDOGREL BISULFATE 75 MG TAB PO SCH (14:32)
[2020-03-26] MEDS: CHOLECALCIFEROL 1,000 UNITS 25 MCG TAB PO SCH (14:33)
[2020-03-26] MEDS: CALCIUM 600MG + VIT D 400 IU TAB PO SCH (14:33)
[2020-03-26] MEDS: FLUoxetine HCL 20 MG CAP PO SCH (14:34)
[2020-03-26] MEDS: PANTOprazole 40 MG TAB PO SCH (14:34)
[2020-03-26] MEDS: FERROUS SULFATE 325 MG TAB PO SCH (14:35)
[2020-03-26] MEDS: ZINC SULFATE 220 MG CAPSULE PO SCH (14:36)
[2020-03-26] MEDS: carvediloL 12.5 MG TAB PO SCH ×2 (14:39→20:31)
--- NOTE | 2020-03-26 17:34 | Nephrology Progress Note ---
Date of Service March 26, 2020 Assessment & Plan (1) Acute renal failure: (2) ESRD (end stage renal disease): Admission and Anticipated Discharge Date Admission Date: Acute oligouric renal failure from ATN- now ESRD dialysis dependent Poor response to high dose lasix dose ,now on Torsemide and metolazone, poor urine output. Removed 3L of fluid on (03/24) on dialysis, break from HD on (03/25) For HDtoday with 3.5 L fluid UF. Will need a few more treatment for improved volume status. Hypertensive - Would improve with fluid removal Subjective Comfortable, no complains.significant pedal edema Review of Systems Review of Systems: All systems reviewed & are unremarkable except as noted in HPI & below Physical Exam Physical Exam: HEENT: Mucous membrane is moist. NECK: Supple. CHEST: Bilateral decreased breath sounds, occasional crackles. CARDIOVASCULAR: S1 and S2, regular. ABDOMEN: Soft, nontender. EXTREMITIES: Shows 3-4+ edema, pitting type with skin breakdown and red spots. Results & Data ([facility]) Vital Signs (Past 12 Hours) Vital Signs Temp Pulse Pulse Resp BP BP BP 03/26/20 12:22 36.8 C 77 77 174/71 H 174/71 H 03/26/20 12:00 77 158/73 H 03/26/20 11:40 77 162/73 H 03/26/20 11:20 78 157/69 H 03/26/20 11:00 78 165/71 H 03/26/20 10:40 79 168/78 H 03/26/20 10:20 78 159/69 H 03/26/20 10:00 79 154/69 H 03/26/20 09:40 80 147/87 H 03/26/20 09:20 79 160/73 H 03/26/20 09:00 76 158/76 H 03/26/20 08:51 36.7 C 80 80 160/77 H 03/26/20 07:22 36.5 C 78 16 157/65 H Pulse Ox 03/26/20 12:22 03/26/20 12:00 03/26/20 11:40 03/26/20 11:20 03/26/20 11:00 03/26/20 10:40 03/26/20 10:20 03/26/20 10:00 03/26/20 09:40 03/26/20 09:20 03/26/20 09:00 03/26/20 08:51 03/26/20 07:22 98
[2020-03-26] MEDS: ARIPIprazole 1 MG/ML ORAL SOLN 150 ML BTL PO SCH (17:43)
[2020-03-26] MEDS: DOCUSATE SODIUM 100 MG CAP PO SCH ×2 (17:44→20:31)
[2020-03-26] MEDS: INSULIN GLARGINE SOLOSTAR 100 UNITS/ML 3 ML PEN SQ SCH (18:12)
[2020-03-27] MEDS: LEVOTHYROXINE SODIUM 200 MCG TABLET PO SCH (06:24)
[2020-03-27] MEDS: hydrALAZINE HCL 20 MG/ML VIAL IV PRN ×2 (07:42→17:57)
[2020-03-27] MEDS: carvediloL 12.5 MG TAB PO SCH (07:47)
[2020-03-27] MEDS: FLUoxetine HCL 20 MG CAP PO SCH (07:47)
[2020-03-27] MEDS: CHOLECALCIFEROL 1,000 UNITS 25 MCG TAB PO SCH (07:48)
[2020-03-27] MEDS: CLOPIDOGREL BISULFATE 75 MG TAB PO SCH (07:48)
[2020-03-27] MEDS: PANTOprazole 40 MG TAB PO SCH (07:48)
[2020-03-27] MEDS: DOCUSATE SODIUM 100 MG CAP PO SCH ×2 (07:50→21:29)
[2020-03-27] MEDS: TORSEMIDE 100 MG TAB PO SCH (07:50)
--- NOTE | 2020-03-27 07:50 | Nephrology Progress Note ---
Date of Service March 27, 2020 Assessment & Plan (1) Acute renal failure: (2) ESRD (end stage renal disease): Patient with acute kidney injury on CKD 4 w/ baseline eGFR about 20 for about a year prior to this admission. Creatinine peaked on 03/15 at 5.6 and BUN of 86. Remained oliguric despite high dose lasix. Dialysis initiated for Fluid mahagement and uremic symptoms. Last Hd on 03/26 Holiday today, reassesment for HD on Saturday. BP - increase carvedilol to 25 BID Admission and Anticipated Discharge Date Admission Date: March 08, 2020 Subjective No shortness of breath, comfortable Review of Systems Review of Systems: All systems reviewed & are unremarkable except as noted in HPI & below Physical Exam Physical Exam: HEENT: Mucous membrane is moist. NECK: Supple. CHEST: Bilateral decreased breath sounds, occasional crackles. CARDIOVASCULAR: S1 and S2, regular. ABDOMEN: Soft, nontender. EXTREMITIES: Shows 3-4+ edema, pitting type with skin breakdown and red spots. Results & Data ([facility]) Vital Signs (Past 12 Hours) Vital Signs Temp Pulse Pulse Resp BP BP Pulse Ox 03/27/20 07:22 36.4 C L 70 14 188/71 H 93 03/26/20 23:11 36.5 C 79 16 193/89 H 188/67 H 93 03/26/20 20:31 37 C 78 18 157/70 H 98 Laboratory Results 03/26/20 13:44 03/26/20 13:44
[2020-03-27 08:49] LABS: BUN Creatinine Ratio 8.9 (10-20); Calcium 8.5 mg/dl (8.5-10.1); Creatinine Clr Calc Pharmacy 13.3 ml/min; Est GFR (Non-African American) 13.8; Magnesium 2.4 mg/dl (1.8-2.4); Potassium 4.8 mmol/L (3.5-5.1)
[2020-03-27] MEDS ORDERED: hydrALAZINE HCL 25 MG TAB PO STA (09:38)
[2020-03-27] MEDS: INSULIN ASPART 100 UNITS/ML 3 ML PEN SC SCH ×4 (10:35→21:16)
[2020-03-27] MEDS: HEPARIN SOD 5,000 UNIT/0.5 ML VIAL SQ SCH ×2 (10:36→21:17)
[2020-03-27] MEDS: INSULIN GLARGINE SOLOSTAR 100 UNITS/ML 3 ML PEN SQ SCH (10:36)
[2020-03-27] MEDS: MICONAZOLE NITRATE POWDER 43 GM EXT SCH ×2 (10:41→21:29)
[2020-03-27] MEDS: ARIPIprazole 1 MG/ML ORAL SOLN 150 ML BTL PO SCH (11:38)
[2020-03-27] MEDS: FERROUS SULFATE 325 MG TAB PO SCH (11:42)
[2020-03-27] MEDS: CALCIUM 600MG + VIT D 400 IU TAB PO SCH (11:42)
[2020-03-27] MEDS: ZINC SULFATE 220 MG CAPSULE PO SCH (11:42)
--- NOTE | 2020-03-27 12:28 | Hospitalist Progress Note ---
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 Cath placement on 03/15/2020 pt oliguric, developed wheeze , shortness of breath, worsening of bilateral lower ext edema Patient given 100 mg Lasix with metolazone, urine output minimal despite high- dose diuretics Switched to torsemide 100 mg daily - plan to discharge on this as well Removed 3L of fluid on (03/24) on dialysis, break from HD on (03/25) Currently patient is on dialysis, plan to remove 3.5 L fluid (03/26) significant vol overload/decompensated CHF ( diastolic dysfunction ) due to anuria , renal failure will need daily dialysis for few days to improve vol status appreciate nephrology eval Hyperkalemia ordered for Lasix 100mg tid /metolazone minimal urine output getting scheduled dialysis as per Nephrology while in patient Diabetes Type 2 Continue with Lantus insulin sliding scale. Acute decompensation of Chronic diastolic congestive heart failure developed significant vol overload -bilateral lower ext extensive edema with seeping of fluid SOB /Orthopnea , pulmonary effusion due to oliguric /anuric renal failure cont dialysis for vol management clinically improved after several rounds of HD and fluid removal Hypertension. BP remains elevated due to vol overload D/c Amlodipine : for lower ext edema Coreg 12.5 mg BID and hydralazine 25 mg BID, medication adjustment as needed PRN IV hydralazine vol management with HD Lower extremity infection of the toes with methicillin-resistant Staphylococcus aureus - Completed course of IV clindamycin - Wound care consulted Coronary artery disease, mild nonobstructive CAD on catheterization in 2011. Continue beta opal, Plavix, Anemia of chronic kidney disease, iron deficiency anemia, on iron supplements. Received 2 units of PRBC at another hospital. - Hg 9.7 --> 9.3 received Venofar Depression and anxiety. Continue Abilify, Wellbutrin./appreciate input form Psychiatry History of cerebrovascular accident -- on aspirin and Plavix. Deep venous thrombosis prophylaxis. heparin subQ Disposition pt will need continued hospital stay for vol overload /decompensated CHF /daily dialysis need Referral made to [facility], patient is agreeable for rehab arrangements made for out pt dialysis at [facility] field contact technician: daughter Admission and Anticipated Discharge Date Admission Date: March 08, 2020 Subjective Patient is sitting up in the chair, in no acute distress. Says that she has no shortness of breath today. Denies any fevers, chills, chest pain, abdominal pain, nausea or vomiting. She continues to have significant lower extremity edema bilaterally, and discomfort because of that. Lamont wraps applied. Review of Systems Respiratory: no dyspnea Cardiovascular: + edema (b/l LE edema); no chest pain and no palpitations Physical Exam Physical Exam: General- oriented x 3, not in distress, speaks in full sentences with no effort or accessory muscle use, now on RA satting 93% Eyes- anicteric, EOMI Lungs- mildly decreased breath sounds at the bases, very mild crackles, no wheezing Heart- normal rate, regular rhythm; no murmurs Abdomen- normal bowel sounds, nondistended, soft, nontender Extremities- + 3 bilateral pitting edema , with seeping now crusted over noted, some tenderness to palpation , venous stasis derm. change noted, Lamont wraps applied Neuro- alert, oriented x 3; no gross focal neurologic deficits Skin- warm & dry Results & Data Results & Data ([facility]) Vital Signs (Past 12 Hours) Vital Signs Temp Pulse Resp BP Pulse Ox 03/27/20 11:41 165/61 H 03/27/20 08:07 183/75 H 03/27/20 07:56 199/69 H 03/27/20 07:22 36.4 C L 70 14 188/71 H 93 Laboratory Results 03/27/20 03/27/20 03/27/20 Range/Units 11:41 08:17 07:42 WBC (4.8-10.8) K/uL RBC (4.2-5.4) M/uL Hgb (12.0-16.0) g/dL Hct (37-47) % MCV (80-100) fL MCH (25-34) pg MCHC (32-36) g/dL RDW Std Deviation (36.4-46.3) fL RDW Coeff of Rosalba (11.5-14.5) % Plt Count (130-400) K/uL MPV (7.4-10.4) fL Sodium 137 (136-145) mmol/L Potassium 4.8 D (3.5-5.1) mmol/L Chloride 103 (98-107) mmol/L Carbon Dioxide 30 (21-32) mmol/L Anion Gap 4.0 (3-11) BUN 27 H D (7-18) mg/dl Creatinine 3.01 H D (0.6-1.2) mg/dl Est Cr Clr Drug Dosing 13.3 ml/min Est GFR ( Amer) 16.0 Est GFR (Non-Af Amer) 13.8 BUN/Creatinine Ratio 8.9 L (10-20) Glucose 61 L (70-99) mg/dl POC Glucose 218 H 80 (70-99) mg/dl Calcium 8.5 (8.5-10.1) mg/dl Magnesium 2.4 (1.8-2.4) mg/dl 03/26/20 03/26/20 03/26/20 Range/Units 20:26 17:40 13:44 WBC (4.8-10.8) K/uL RBC (4.2-5.4) M/uL Hgb (12.0-16.0) g/dL Hct (37-47) % MCV (80-100) fL MCH (25-34) pg MCHC (32-36) g/dL RDW Std Deviation (36.4-46.3) fL RDW Coeff of Rosalba (11.5-14.5) % Plt Count (130-400) K/uL MPV (7.4-10.4) fL Sodium 136 (136-145) mmol/L Potassium 3.7 D (3.5-5.1) mmol/L Chloride 102 (98-107) mmol/L Carbon Dioxide 31 (21-32) mmol/L Anion Gap 3.0 (3-11) BUN 15 (7-18) mg/dl Creatinine 1.98 H D (0.6-1.2) mg/dl Est Cr Clr Drug Dosing 20.5 ml/min Est GFR ( Amer) 26.6 Est GFR (Non-Af Amer) 23.0 BUN/Creatinine Ratio 7.7 L (10-20) Glucose 158 H (70-99) mg/dl POC Glucose 179 H 269 H (70-99) mg/dl Calcium 8.1 L (8.5-10.1) mg/dl Magnesium 2.3 (1.8-2.4) mg/dl 03/26/20 Range/Units 13:44 WBC 6.09 (4.8-10.8) K/uL RBC 3.29 L (4.2-5.4) M/uL Hgb 9.5 L (12.0-16.0) g/dL Hct 31.6 L (37-47) % MCV 96.0 (80-100) fL MCH 28.9 (25-34) pg MCHC 30.1 L (32-36) g/dL RDW Std Deviation 61.7 H (36.4-46.3) fL RDW Coeff of Rosalba 17.7 H (11.5-14.5) % Plt Count 342 (130-400) K/uL MPV 8.3 (7.4-10.4) fL Sodium (136-145) mmol/L Potassium (3.5-5.1) mmol/L Chloride (98-107) mmol/L Carbon Dioxide (21-32) mmol/L Anion Gap (3-11) BUN (7-18) mg/dl Creatinine (0.6-1.2) mg/dl Est Cr Clr Drug Dosing ml/min Est GFR ( Amer) Est GFR (Non-Af Amer) BUN/Creatinine Ratio (10-20) Glucose (70-99) mg/dl POC Glucose (70-99) mg/dl Calcium (8.5-10.1) mg/dl Magnesium (1.8-2.4) mg/dl Medications Administered Current Inpatient Medications Acetaminophen (Acetaminophen 325 Mg Tab) 650 mg PO Q4H PRN PRN Reason: Pain or Fever Stop: 04/07/20 20:30 Last Admin: 03/25/20 06:03 Dose: 650 mg Documented by: Albuterol (Albut/Ipratrop 3mg/0.5mg Neb 3 Ml Vial) 3 ml NEB Q4R PRN PRN Reason: Wheezing Stop: 04/09/20 05:26 Last Admin: 03/23/20 05:38 Dose: 3 ml Documented by: Aripiprazole (Aripiprazole 1 Mg/Ml Oral Soln 150 Ml Btl) 2 mg PO QAM [facility] Stop: 04/14/20 08:59 Last Admin: 03/27/20 11:38 Dose: 2 mg Documented by: Carvedilol (Carvedilol 12.5 Mg Tab) 12.5 mg PO BID [facility] Stop: 04/26/20 20:59 Clopidogrel Bisulfate (Clopidogrel Bisulfate 75 Mg Tab) 75 mg PO QAM [facility] Stop: 04/08/20 08:59 Last Admin: 03/27/20 07:48 Dose: 75 mg Documented by: Dextrose (Dextrose 50% 50 Ml Syringe) 25 - 50 ml IV UD PRN; Protocol PRN Reason: Hypoglycemia Protocol Stop: 04/07/20 21:59 Docusate Sodium (Docusate Sodium 100 Mg Cap) 100 mg PO BID [facility] Stop: 04/08/20 08:59 Last Admin: 03/27/20 07:50 Dose: 100 mg Documented by: Ferrous Sulfate (Ferrous Sulfate 325 Mg Tab) 325 mg PO QDL [facility] Stop: 04/22/20 11:29 Last Admin: 03/27/20 11:42 Dose: 325 mg Documented by: Fluoxetine HCl (Fluoxetine Hcl 20 Mg Cap) 20 mg PO QAM [facility] Stop: 04/16/20 09:59 Last Admin: 03/27/20 07:47 Dose: 20 mg Documented by: Glucagon (Glucagon For Inj 1 Mg Vial) 1 mg IM UD PRN; Protocol PRN Reason: Hypoglycemia Protocol Stop: 04/07/20 21:59 Glucose (Glucose 40% Gel 15 Gm Tube) 15 - 30 gm PO UD PRN; Protocol PRN Reason: Hypoglycemia Protocol Stop: 04/07/20 21:59 Glucose (Glucose 10 Tabs/Tube) 4 - 8 tabs PO UD PRN; Protocol PRN Reason: Hypoglycemia Protocol Stop: 04/07/20 21:59 Heparin Sodium (Porcine) (Heparin Sod 5,000 Unit/0.5 Ml Vial) 5,000 units SQ Q12 [facility] Stop: 04/08/20 08:59 Last Admin: 03/27/20 10:36 Dose: 5,000 units Documented by: Hydralazine HCl (Hydralazine Hcl 20 Mg/Ml Vial) 10 mg IV Q6H PRN PRN Reason: hypertension Stop: 04/09/20 15:29 Last Admin: 03/27/20 07:42 Dose: 10 mg Documented by: Hydralazine HCl (Hydralazine Tab 50 Mg Tab) 50 mg PO BID [facility] Stop: 04/26/20 20:59 Insulin Aspart (Insulin Aspart 100 Units/Ml 3 Ml Pen) 0 units SC ACHS [facility] Stop: 04/08/20 07:29 Last Admin: 03/27/20 11:43 Dose: 3 units Documented by: Insulin Glargine (Insulin Glargine Solostar 100 Units/Ml 3 Ml Pen) 15 units SQ QAM [facility] Stop: 04/08/20 08:59 Last Admin: 03/27/20 10:36 Dose: 15 units Documented by: Levothyroxine Sodium (Levothyroxine Sodium 200 Mcg Tablet) 200 mcg PO DAILYBB [facility] Stop: 04/08/20 06:29 Last Admin: 03/27/20 06:24 Dose: 200 mcg Documented by: Miconazole Nitrate (Miconazole Nitrate Powder 43 Gm) 1 appln EXT BID [facility] Stop: 04/15/20 20:59 Last Admin: 03/27/20 10:41 Dose: 1 appln Documented by: Miscellaneous (Carbohydrates For Hypoglycemia ) 15 - 30 gm PO UD PRN PRN Reason: Hypoglycemia Treatment Stop: 04/07/20 21:59 Multivitamins/Minerals (Calcium 600mg + Vit D 400 Iu Tab) 1 tab PO QDL [facility] Stop: 04/08/20 11:29 Last Admin: 03/27/20 11:42 Dose: 1 tab Documented by: Ondansetron HCl (Ondansetron Inj 2 Mg/Ml 2 Ml Vial) 4 mg IV Q4H PRN PRN Reason: Nausea Stop: 04/14/20 06:17 Last Admin: 03/26/20 06:20 Dose: 4 mg Documented by: Pantoprazole Sodium (Pantoprazole 40 Mg Tab) 40 mg PO QAM [facility] Stop: 04/08/20 08:59 Last Admin: 03/27/20 07:48 Dose: 40 mg Documented by: Polyethylene Glycol (Polyethylene (Miralax) 17 Gm Pack) 17 gm PO DAILY PRN PRN Reason: Constipation Stop: 04/07/20 20:30 Torsemide (Torsemide 100 Mg Tab) 100 mg PO QAM [facility] Stop: 04/24/20 08:59 Last Admin: 03/27/20 07:50 Dose: 100 mg Documented by: Tramadol HCl (Tramadol Hcl 50 Mg Tablet) 50 mg PO HS PRN PRN Reason: leg pain Stop: 04/07/20 23:09 Last Admin: 03/26/20 02:48 Dose: 50 mg Documented by: Vitamin D (Cholecalciferol 1,000 Units 25 Mcg Tab) 5,000 units PO QAM [facility] Stop: 04/08/20 08:59 Last Admin: 03/27/20 07:48 Dose: 5,000 units Documented by: Zinc Sulfate (Zinc Sulfate 220 Mg Capsule) 220 mg PO QDL [facility] Stop: 04/08/20 11:29 Last Admin: 03/27/20 11:42 Dose: 220 mg Documented by:
[2020-03-27] MEDS ORDERED: hydrALAZINE HCL 25 MG TAB PO SCH (21:00)
[2020-03-27] MEDS ORDERED: carvediloL 25 MG TAB PO SCH (21:00)
[2020-03-27] MEDS ORDERED: hydrALAZINE TAB 50 MG TAB PO SCH (21:00)
[2020-03-27] MEDS ORDERED: carvediloL 12.5 MG TAB PO SCH (21:00)
[2020-03-27] MEDS: carvediloL 25 MG TAB PO SCH (21:15)
[2020-03-27] MEDS: hydrALAZINE TAB 50 MG TAB PO SCH (21:15)
[2020-03-28] MEDS: hydrALAZINE HCL 20 MG/ML VIAL IV PRN (00:16)
[2020-03-28] MEDS: LEVOTHYROXINE SODIUM 200 MCG TABLET PO SCH (06:11)
[2020-03-28 07:18] LABS: BUN Creatinine Ratio 10.1 (10-20); Calcium 8.1 mg/dl (8.5-10.1); Creatinine Clr Calc Pharmacy 10.3 ml/min; Est GFR (African American) 11.5; Magnesium 2.6 mg/dl (1.8-2.4); Potassium 5.3 mmol/L (3.5-5.1)
--- NOTE | 2020-03-28 07:43 | Nephrology Progress Note ---
Date of Service March 28, 2020 Assessment & Plan (1) Acute renal failure: (2) ESRD (end stage renal disease): Patient admitted with acute kidney injury on CKD 4 w/ baseline eGFR about 20 for about a year prior to this admission. Creatinine peaked on 03/15 at 5.6 and BUN of 86. Now ESRD Dialysis initiated for Fluid mahagement and uremic symptoms. Mild K elevation today - should be ok until tomorrow if she remains on renal diet Last Hd on 03/26 Holiday today; next HD as OP in [place] >>>>>Some meds adjusted today in anticipation of d/c >> stopped MVI/Ca, stopped Fe; stopped torsemide; started renal vitamin; pls maintain these changes at d/c >>>>>D/c summary updated to show dialysis diet and 1.2 limit FR BP - cont current bp meds except torsemide Admission and Anticipated Discharge Date Admission Date: March 08, 2020 Subjective seen on rounds at 0740 approx; no complaints of uncontrolled pain, sob, worsening swelling. tolerating HD and ready to begin as OP; aware will be lots of adjustments to her daily routines as HD pt; some UOP reported Review of Systems Review of Systems: All systems reviewed & are unremarkable except as noted in HPI & below Physical Exam Constitutional: well developed, well nourished, + frail appearing and cooperative; no acute distress and not ill appearing Eyes: EOM intact bilaterally ENMT: Ears: no external ear abnormality Nose: no external nose abnormality Mouth: + dry oral mucous membranes Neck: no nuchal rigidity Respiratory: normal respiratory effort Auscultation: lungs clear to auscultation bilaterally and + diminished lung sounds Cardiovascular: Rate/Rhythm: regular rate and regular rhythm Extremities: + edema (1++ BLE wrapped) Gastrointestinal (Abdomen): Inspection/Auscultation: normal bowel sounds Percussion/Palpation: abdomen soft; abdomen nontender Musculoskeletal: Extremities: strength 5/5 throughout Skin: no rashes, warm and dry Neurologic: ochoa, fluent speech, no tremor Psychiatric: Orientation: alert and oriented x 3 Eye Contact: good eye contact Speech: normal rate/rhythm/volume of speech Affect: + flat affect Genitourinary: no ortiz Results & Data ([facility]) Vital Signs (Past 12 Hours) Vital Signs Temp Pulse Resp BP Pulse Ox 03/28/20 02:00 142/62 H 03/28/20 00:13 165/63 H 03/27/20 23:24 36.8 C 82 14 173/65 H 94 03/27/20 19:55 170/65 H Laboratory Results 03/26/20 13:44 03/28/20 06:17
[2020-03-28] MEDS: HEPARIN SOD 5,000 UNIT/0.5 ML VIAL SQ SCH (08:46)
[2020-03-28] MEDS: INSULIN ASPART 100 UNITS/ML 3 ML PEN SC SCH ×2 (08:47→12:44)
[2020-03-28] MEDS: INSULIN GLARGINE SOLOSTAR 100 UNITS/ML 3 ML PEN SQ SCH (09:26)
[2020-03-28] MEDS: CLOPIDOGREL BISULFATE 75 MG TAB PO SCH (09:27)
[2020-03-28] MEDS: MICONAZOLE NITRATE POWDER 43 GM EXT SCH (09:28)
[2020-03-28] MEDS: PANTOprazole 40 MG TAB PO SCH (09:28)
[2020-03-28] MEDS: FLUoxetine HCL 20 MG CAP PO SCH (09:28)
[2020-03-28] MEDS: carvediloL 25 MG TAB PO SCH (09:29)
[2020-03-28] MEDS: hydrALAZINE TAB 50 MG TAB PO SCH ×2 (09:29→13:53)
[2020-03-28] MEDS: CHOLECALCIFEROL 1,000 UNITS 25 MCG TAB PO SCH (09:30)
--- NOTE | 2020-03-28 09:33 | Hospitalist Progress Note ---
Date of Service March 28, 2020 Assessment & Plan (1) BARBARA (acute kidney injury): Acute oligouric renal failure from ATN- now ESRD dialysis dependent status post dialysis Cath placement on 03/15/2020 pt oliguric, developed wheeze , shortness of breath, worsening of bilateral lower ext edema Patient given 100 mg Lasix with metolazone, urine output minimal despite high- dose diuretics Switched to torsemide 100 mg daily - now stopped, plan to stop on discharge Removed 3L of fluid on (03/24) on dialysis, break from HD on (03/25) Plan for no dialysis today, March 28, resume dialysis tomorrow March 29, possibly outpatient significant vol overload/decompensated CHF ( diastolic dysfunction ) due to anuria , renal failure needed daily dialysis for few days to improve vol status appreciate nephrology eval Clinically improved, no shortness of breath, however continues to have lower extremity edema Hyperkalemia ordered for Lasix 100mg tid /metolazone minimal urine output getting scheduled dialysis as per Nephrology while in patient Diabetes Type 2 Continue with Lantus insulin sliding scale. Acute decompensation of Chronic diastolic congestive heart failure developed significant vol overload -bilateral lower ext extensive edema with seeping of fluid SOB /Orthopnea , pulmonary effusion due to oliguric /anuric renal failure cont dialysis for vol management clinically improved after several rounds of HD and fluid removal Hypertension. BP remains elevated due to vol overload D/c Amlodipine : for lower ext edema Coreg 25 mg BID and hydralazine 30 mg TID, medication adjustment as needed PRN IV hydralazine vol management with HD Lower extremity infection of the toes with methicillin-resistant Staphylococcus aureus - Completed course of IV clindamycin - Wound care consulted Coronary artery disease, mild nonobstructive CAD on catheterization in 2011. Continue beta opal, Plavix, Anemia of chronic kidney disease, iron deficiency anemia, on iron supplements. Received 2 units of PRBC at another hospital. - Hg 9.7 --> 9.3 received Venofar Depression and anxiety. Continue Abilify, Wellbutrin./appreciate input form Psychiatry History of cerebrovascular accident -- on aspirin and Plavix. Deep venous thrombosis prophylaxis. heparin subQ Disposition pt will need continued hospital stay for vol overload /decompensated CHF /daily dialysis need Referral made to [facility], patient is agreeable for rehab -repeat Covid test needed arrangements made for out pt dialysis at [facility] contact center representative: daughter Admission and Anticipated Discharge Date Admission Date: March 08, 2020 Subjective Patient is sitting up in the chair, in no acute distress. Says that she has no shortness of breath today. Denies any fevers, chills, chest pain, abdominal pain, nausea or vomiting. States that she feels much better today, she continues to have significant lower extremity edema bilaterally, Lamont wraps applied. No HD today, plan for HD tomorrow. Plan for HD as outpatient. Okay to discharge per nephrology, stop torsemide, soft iron, MVI/calcium, start renal vitamin. Covid test repeated. Review of Systems Review of Systems: All systems reviewed & are unremarkable except as noted in HPI & below Constitutional: no fever and no chills Respiratory: no cough and no dyspnea Cardiovascular: + edema (b/l LE edema); no chest pain and no palpitations Gastrointestinal: no abdominal pain, no nausea and no vomiting Physical Exam Physical Exam: General- oriented x 3, not in distress, speaks in full sentences with no effort or accessory muscle use, now on RA satting 94% Eyes- anicteric, EOMI Lungs- mildly decreased breath sounds at the bases, very mild crackles, no wheezing Heart- normal rate, regular rhythm; no murmurs Abdomen- normal bowel sounds, nondistended, soft, nontender Extremities- + 3 bilateral pitting edema , with seeping now crusted over noted, some tenderness to palpation , venous stasis derm. change noted, Lamont wraps applied Neuro- alert, oriented x 3; no gross focal neurologic deficits Skin- warm & dry Results & Data Results & Data ([facility]) Vital Signs (Past 12 Hours) Vital Signs Temp Pulse Resp BP Pulse Ox 03/28/20 08:30 36.6 C 76 18 183/71 H 94 03/28/20 02:00 142/62 H 03/28/20 00:13 165/63 H 03/27/20 23:24 36.8 C 82 14 173/65 H 94 Laboratory Results 03/28/20 03/28/20 03/27/20 Range/Units 08:19 06:17 20:55 Sodium 135 L (136-145) mmol/L Potassium 5.3 H (3.5-5.1) mmol/L Chloride 103 (98-107) mmol/L Carbon Dioxide 26 (21-32) mmol/L Anion Gap 6.0 (3-11) BUN 40 H (7-18) mg/dl Creatinine 3.95 H D (0.6-1.2) mg/dl Est Cr Clr Drug Dosing 10.3 ml/min Est GFR ( Amer) 11.5 Est GFR (Non-Af Amer) 10.0 BUN/Creatinine Ratio 10.1 (10-20) Glucose 100 H (70-99) mg/dl POC Glucose 111 H 209 H (70-99) mg/dl Calcium 8.1 L (8.5-10.1) mg/dl Magnesium 2.6 H (1.8-2.4) mg/dl 03/27/20 03/27/20 Range/Units 17:16 11:41 Sodium (136-145) mmol/L Potassium (3.5-5.1) mmol/L Chloride (98-107) mmol/L Carbon Dioxide (21-32) mmol/L Anion Gap (3-11) BUN (7-18) mg/dl Creatinine (0.6-1.2) mg/dl Est Cr Clr Drug Dosing ml/min Est GFR ( Amer) Est GFR (Non-Af Amer) BUN/Creatinine Ratio (10-20) Glucose (70-99) mg/dl POC Glucose 158 H 218 H (70-99) mg/dl Calcium (8.5-10.1) mg/dl Magnesium (1.8-2.4) mg/dl Medications Administered Current Inpatient Medications Acetaminophen (Acetaminophen 325 Mg Tab) 650 mg PO Q4H PRN PRN Reason: Pain or Fever Stop: 04/07/20 20:30 Last Admin: 03/25/20 06:03 Dose: 650 mg Documented by: Albuterol (Albut/Ipratrop 3mg/0.5mg Neb 3 Ml Vial) 3 ml NEB Q4R PRN PRN Reason: Wheezing Stop: 04/09/20 05:26 Last Admin: 03/23/20 05:38 Dose: 3 ml Documented by: Aripiprazole (Aripiprazole 1 Mg/Ml Oral Soln 150 Ml Btl) 2 mg PO QAM [facility] Stop: 04/14/20 08:59 Last Admin: 03/27/20 11:38 Dose: 2 mg Documented by: Carvedilol (Carvedilol 25 Mg Tab) 25 mg PO BID [facility] Stop: 04/26/20 20:59 Last Admin: 03/28/20 09:29 Dose: 25 mg Documented by: Clopidogrel Bisulfate (Clopidogrel Bisulfate 75 Mg Tab) 75 mg PO QAM [facility] Stop: 04/08/20 08:59 Last Admin: 03/28/20 09:27 Dose: 75 mg Documented by: Dextrose (Dextrose 50% 50 Ml Syringe) 25 - 50 ml IV UD PRN; Protocol PRN Reason: Hypoglycemia Protocol Stop: 04/07/20 21:59 Docusate Sodium (Docusate Sodium 100 Mg Cap) 100 mg PO BID [facility] Stop: 04/08/20 08:59 Last Admin: 03/27/20 21:29 Dose: 100 mg Documented by: Fluoxetine HCl (Fluoxetine Hcl 20 Mg Cap) 20 mg PO QAM [facility] Stop: 04/16/20 09:59 Last Admin: 03/28/20 09:28 Dose: 20 mg Documented by: Glucagon (Glucagon For Inj 1 Mg Vial) 1 mg IM UD PRN; Protocol PRN Reason: Hypoglycemia Protocol Stop: 04/07/20 21:59 Glucose (Glucose 40% Gel 15 Gm Tube) 15 - 30 gm PO UD PRN; Protocol PRN Reason: Hypoglycemia Protocol Stop: 04/07/20 21:59 Glucose (Glucose 10 Tabs/Tube) 4 - 8 tabs PO UD PRN; Protocol PRN Reason: Hypoglycemia Protocol Stop: 04/07/20 21:59 Heparin Sodium (Porcine) (Heparin Sod 5,000 Unit/0.5 Ml Vial) 5,000 units SQ Q12 [facility] Stop: 04/08/20 08:59 Last Admin: 03/28/20 08:46 Dose: 5,000 units Documented by: Hydralazine HCl (Hydralazine Hcl 20 Mg/Ml Vial) 10 mg IV Q6H PRN PRN Reason: hypertension Stop: 04/09/20 15:29 Last Admin: 03/28/20 00:16 Dose: 10 mg Documented by: Hydralazine HCl (Hydralazine Tab 50 Mg Tab) 50 mg PO TID [facility] Stop: 04/26/20 20:29 Last Admin: 03/28/20 09:29 Dose: 50 mg Documented by: Insulin Aspart (Insulin Aspart 100 Units/Ml 3 Ml Pen) 0 units SC ACHS [facility] Stop: 04/08/20 07:29 Last Admin: 03/28/20 08:47 Dose: Not Given Documented by: Insulin Glargine (Insulin Glargine Solostar 100 Units/Ml 3 Ml Pen) 15 units SQ QAM [facility] Stop: 04/08/20 08:59 Last Admin: 03/28/20 09:26 Dose: 15 units Documented by: Levothyroxine Sodium (Levothyroxine Sodium 200 Mcg Tablet) 200 mcg PO DAILYBB [facility] Stop: 04/08/20 06:29 Last Admin: 03/28/20 06:11 Dose: 200 mcg Documented by: Miconazole Nitrate (Miconazole Nitrate Powder 43 Gm) 1 appln EXT BID [facility] Stop: 04/15/20 20:59 Last Admin: 03/28/20 09:28 Dose: 1 appln Documented by: Miscellaneous (Carbohydrates For Hypoglycemia ) 15 - 30 gm PO UD PRN PRN Reason: Hypoglycemia Treatment Stop: 04/07/20 21:59 Ondansetron HCl (Ondansetron Inj 2 Mg/Ml 2 Ml Vial) 4 mg IV Q4H PRN PRN Reason: Nausea Stop: 04/14/20 06:17 Last Admin: 03/26/20 06:20 Dose: 4 mg Documented by: Pantoprazole Sodium (Pantoprazole 40 Mg Tab) 40 mg PO QAM [facility] Stop: 04/08/20 08:59 Last Admin: 03/28/20 09:28 Dose: 40 mg Documented by: Polyethylene Glycol (Polyethylene (Miralax) 17 Gm Pack) 17 gm PO DAILY PRN PRN Reason: Constipation Stop: 04/07/20 20:30 Tramadol HCl (Tramadol Hcl 50 Mg Tablet) 50 mg PO HS PRN PRN Reason: leg pain Stop: 04/07/20 23:09 Last Admin: 03/26/20 02:48 Dose: 50 mg Documented by: Vitamin B Complex/Folic Acid (Nephrocaps) 1 cap PO HS [facility] Stop: 04/27/20 20:59 Vitamin D (Cholecalciferol 1,000 Units 25 Mcg Tab) 5,000 units PO QAM [facility] Stop: 04/08/20 08:59 Last Admin: 03/28/20 09:30 Dose: 5,000 units Documented by: Zinc Sulfate (Zinc Sulfate 220 Mg Capsule) 220 mg PO QDL [facility] Stop: 04/08/20 11:29 Last Admin: 03/27/20 11:42 Dose: 220 mg Documented by:
[2020-03-28] MEDS: DOCUSATE SODIUM 100 MG CAP PO SCH (09:36)
[2020-03-28] MEDS: ARIPIprazole 1 MG/ML ORAL SOLN 150 ML BTL PO SCH (09:37)
[2020-03-28] MEDS: ZINC SULFATE 220 MG CAPSULE PO SCH (12:45)
--- NOTE | 2020-03-28 15:03 | Discharge Summary ---
Date of Service March 28, 2020 Admission HPI Per Admitting Provider This is an 84-year-old female with past medical history significant for type 2 diabetes, hypothyroidism, hyperlipidemia, history of pancreatic hypertrophy, chronic kidney disease stage III , history of pleural effusion, history of sleep apnea, nocturnal hypoxemia, chronic diastolic CHF, pulmonary hypertension, venous insufficiency, bilateral atrial enlargement, hypertension, GERD, zinc deficiency, osteoarthritis of multiple joints, senile osteoporosis, hiatal hernia, diabetic polyneuropathy, anemia of chronic kidney disease, iron deficiency anemia, CAD, depression with anxiety, status post mitral valve repair, history of CVA, who lives with her , ambulates with a walker. She was admitted to [facility] on 03/04/2020 because she slid from the bed and hit her left side of the head and left knee. At that time, CT scan was done which was unremarkable. She was also found to be in BARBARA. Baseline creatinine around 1.9 to 2, At [facility] admission creatinine was 2.4, and also hemoglobin 7.4. Her diuretics were held and she was given gentle fluids and 2 units of PRBCs were given. Left knee x-ray was negative study and CT of the cervical spine and CT of the head were also unremarkable. She was also as outpatient started on Bactrim for bilateral toes infection, which was stopped and she was placed on IV clindamycin [facility]. She seems to be improving and then gentle fluids were stopped and torsemide was reinitiated, but then again today her kidney function got worse to 3.1 and also hyperkalemia with potassium of 5.8. No EKG changes. She was given insulin and Kayexalate and she was transferred here for further care because no nephrology available at that center. The patient is currently resting comfortable and hemodynamically stable. Denies any chest pain, no shortness of breath, no cough, no headache, no blurred vision, no earache, no runny nose, no sore throat. She says she has a history of mini stroke in the past and she sometimes has difficulty swallowing and she likes to be on soft diet. She was nauseous earlier, but no vomiting, no abdominal pain. Normal bowel and bladder movements. She today afternoon she felt weak.Afebrile. Admission Exam Per Admitting Provider GENERAL: The patient is old and frail. The patient is alert and oriented. Not in acute distress. VITAL SIGNS: Currently not available. HEENT: Atraumatic. Pupils equal. No pallor, no icterus. Extraocular muscles intact. NECK: No neck masses. No JVD. CARDIOVASCULAR: S1, S2 heard. Regular rate and rhythm, no murmur, no gallop. RESPIRATORY SYSTEM: Normal AP diameter. No accessory muscle use. No wheezing, no crackles. ABDOMEN: Soft, bowel sounds present, nontender. No distention. CENTRAL NERVOUS SYSTEM: Cranial nerves II-XII grossly intact, nonfocal. EXTREMITIES: Bilateral second toe ulcers seen. No drainage, no erythema seen. 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 change noted, Lamont wraps applied Neuro- alert, oriented x 3; no gross focal neurologic deficits Skin- warm & dry Discharge Data Allergies Allergy/AdvReac Type Severity Reaction Status Date / Time No Known Allergies Allergy Verified 01/10/20 18:46 Consultations 03/08/20 20:31 Consult Nephrology Routine 03/14/20 10:40 Consult Palliative Care Routine Consult Vascular Surgery Routine 03/14/20 14:56 Consult Psychiatry Routine Procedures Performed Operation Date: 03/15/20 10:25 Actual Procedures p Insertion of Perm Catheter, Right Internal Jugular Approach, Ultrasound Localization of Right Internal Jugular Vein, Fluoroscopy for Positioning; Moderate Sedation From 1005 to 1026(Right) - Johan Rivers MD Ordered Studies 03/15/20 09:28 EV cvc insrt tunnel wo prt/chief mechanical engineer Routine US EV guide vascular access Routine 03/21/20 08:30 US venous doppler LE BI Routine FINDINGS: The bilateral common femoral, superficial femoral and popliteal veins were patent although evaluation was mildly compromised. Augmentation was normal. Flow was shown within the deep calf vessels. Lower extremity edema was noted. IMPRESSION: Exam mildly compromised but no evidence of deep venous thrombus within the bilateral lower extremities. Hospital Course (1) BARBARA (acute kidney injury): Acute oligouric renal failure from ATN- now ESRD dialysis dependent status post dialysis Cath placement on 03/15/2020 pt oliguric, developed wheeze , shortness of breath, worsening of bilateral lower ext edema Patient given 100 mg Lasix with metolazone, urine output minimal despite high- dose diuretics Switched to torsemide 100 mg daily - now stopped, stop on discharge as well Removed 3L of fluid on (03/24) on dialysis, break from HD on (03/25) Plan for no dialysis today, March 28, resume dialysis tomorrow March 29, possibly outpatient Nephrocaps/kidney vitamin ordered by nephrology, other multivitamins discontinued significant vol overload/decompensated CHF ( diastolic dysfunction ) due to anuria , renal failure needed daily dialysis for few days to improve vol status appreciate nephrology eval Clinically improved, no shortness of breath, however continues to have lower extremity edema Hyperkalemia ordered for Lasix 100mg tid /metolazone minimal urine output getting scheduled dialysis as per Nephrology while in patient Diabetes Type 2 Continue with Lantus insulin sliding scale. Acute decompensation of Chronic diastolic congestive heart failure developed significant vol overload -bilateral lower ext extensive edema with seeping of fluid SOB /Orthopnea , pulmonary effusion due to oliguric /anuric renal failure cont dialysis for vol management clinically improved after several rounds of HD and fluid removal Hypertension. BP remains elevated due to vol overload D/c Amlodipine : for lower ext edema Coreg 25 mg BID and hydralazine 30 mg TID, medication adjustment as needed PRN IV hydralazine vol management with HD Lower extremity infection of the toes with methicillin-resistant Staphylococcus aureus - Completed course of IV clindamycin - Wound care consulted Coronary artery disease, mild nonobstructive CAD on catheterization in 2011. Continue beta opal, Plavix, Anemia of chronic kidney disease, iron deficiency anemia, on iron supplements. Received 2 units of PRBC at another hospital. - Hg 9.7 --> 9.3 received Venofar Depression and anxiety. Continue Abilify, Prozac 20/appreciate input form Psychiatry History of cerebrovascular accident -- on aspirin and Plavix. Deep venous thrombosis prophylaxis. heparin subQ Disposition pt will need continued hospital stay for vol overload /decompensated CHF /daily dialysis need Referral made to Psychiatric, patient is agreeable for rehab -repeat Covid test -negative arrangements made for out pt dialysis at [facility] contact center specialist: daughter Total Time Total Time Spent Total Time Spent (In Minutes): 40 Total Time Includes: Examination of the Patient, Discharge Planning, Medication Reconciliation and Communication With Other Providers Discharge Plan Discharge Items Patient Disposition: Transfer [facility] Reason For Visit: ACUTE WORSENING OF CKD STAGE 4 Discharge Diagnosis: Acute worsening of CKD stage IV, now end-stage disease, 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 Stop taking torsemide. Stop taking iron supplement and other vitamin supplements. Nephrocaps/kidney vitamin was ordered for you. Pending Studies at Discharge: No Stand-Alone Forms: My [facility] Skilled Items Patient informed of condition?: Yes DNR: No Discharge Level of Care: Skilled Communicable Disease: No Discharge Prognosis: Stable Lines: None Urinary Catheter: No Medications and DC Order Prescriptions: New fluoxetine 20 mg Capsule 20 mg PO QAM 30 Days Qty: 30 RF: 0 Desenex 2 % Powder 1 applic EXT BID Qty: 43 RF: 0 Renal Caps 1 mg Capsule 1 cap PO HS Qty: 30 RF: 0 cholecalciferol (vitamin D3) 25 mcg (1,000 unit) Capsule 5,000 unit PO QAM 30 Days RF: 0 Continued levothyroxine 200 mcg 200 mcg PO DAILY RF: 0 hydralazine 50 mg 50 mg PO TID RF: 0 carvedilol 25 mg Tablet 25 mg PO AMHS RF: 0 clopidogrel [Plavix] 75 mg Tablet 75 mg PO QAM RF: 0 tramadol 50 mg Tablet 50 mg PO HS PRN (Reason: leg pain) RF: 0 acetaminophen [Tylenol Extra Strength] 500 mg Tablet 500 - 1,000 mg PO Q6H PRN (Reason: Pain) RF: 0 Lantus U-100 Insulin 100 unit/mL Solution 15 unit SUBCUT QAM RF: 0 pantoprazole 40 mg Tablet,Delayed Release (Dr/Ec) 40 mg PO QAM RF: 0 docusate sodium 100 mg Capsule 100 mg PO AMHS RF: 0 polyethylene glycol 3350 [Miralax] 17 gram/dose Powder 17 g PO DAILY PRN (Reason: Constipation) RF: 0 aripiprazole [Abilify] 2 mg Tablet 1 mg PO QAM RF: 0 zinc sulfate [Zinc-220] 220 (50) mg Capsule 220 mg PO QDL RF: 0 albuterol sulfate 90 mcg/actuation HFA aerosol inhaler 2 puff INHALATION QID RF: 0 semaglutide 1 mg/dose (2 mg/1.5 mL) Pen Injector 1 mg SUBCUT WK RF: 0 Discontinued Lexapro 10 MG 10 mg PO DAILY RF: 0 calcium carbonate [Calcium 600] 600 mg calcium (1,500 mg) Tablet 600 mg PO QDL RF: 0 vitamin A 10,000 unit Capsule 10,000 unit PO QAM RF: 0 magnesium oxide 400 mg Capsule 400 mg PO TID RF: 0 torsemide 20 mg tablet See Rx Instructions .ROUTE .COMPLEX RF: 0 bupropion HCl [Wellbutrin SR] 100 mg Tablet Sustained-Release 12 Hr 100 mg PO BID RF: 0 cholecalciferol (vitamin D3) [Vitamin D3] 125 mcg (5,000 unit) Tablet 125 mcg PO QAM RF: 0 Vitron-C 65 mg iron- 125 mg Tablet,Delayed Release (Dr/Ec) 1 tab PO QDL RF: 0 Discharge Orders: Discharge Order (Routine); Ordered 03/28/20 Ordered By: Jeremy Holden Admission Data Admit Date/Time: 03/08/20 20:57 Attending Provider: Jeremy Holden Admit Provider: Hipolito Vaca Primary Care Provider: Suzanne Adams Other Providers: Hipolito Vaca ; Modesta Dye ; Nico Fulton ; Rani Nicholson ; Johan Rivers Melissa C. ; Michaelle Padilla Other Interventions: PSY Interdisciplinary Discharge Planning Last Done: 03/23/20 11:51
[2020-03-28] MEDS ORDERED: NEPHROCAPS PO SCH (21:00)
== END 2020-03-28 16:29 | DRG 291 ==
LOC: 2S 20:57 → SUATTDRO 20:57 → 1E 03-11 10:50 → 2S 03-11 18:31 → 3W 03-21 18:40

== ENCOUNTER 2020-11-25 22:58 | Inpatient (IN) ==
[2020-11-26 00:35] LABS: Basophils # (auto) 0.01 K/uL (0-0.2); Basophils % (auto) 0.2 %; Eosinophils # (auto) 0.01 K/uL (0-0.5); Eosinophils % (auto) 0.2 %; Hematocrit (blood only) 36.7 % (37-47); Hemoglobin 11.3 g/dL (12.0-16.0); Immature Granulocytes # (auto) 0.02 K/uL (0.00-0.02); Immature Granulocytes % (auto) 0.3 %; Lymphocytes # (auto) 0.82 K/uL (1.2-3.4); Lymphocytes % (auto) 13.8 %; Mean Corpuscular Hemoglobin 30.5 pg (25-34); Mean Corpuscular Hgb Conc 30.8 g/dL (32-36); Mean Corpuscular Volume 99.2 fL (80-100); Mean Platelet Volume 10.1 fL (7.4-10.4); Monocytes # (auto) 0.41 K/uL (0.11-0.59); Monocytes % (auto) 6.9 %; Neutrophils # (auto) 4.69 K/uL (1.4-6.5); Neutrophils % (auto) 78.6 %; Platelet Count 149 K/uL (130-400); RDW Coefficient of Variation 16.3 % (11.5-14.5); White Blood Count 5.96 K/uL (4.8-10.8)
[2020-11-26 00:43] LABS: Albumin Level 3.4 gm/dl (3.4-5.0); BUN Creatinine Ratio 12.7 (10-20); Calcium 8.4 mg/dl (8.5-10.1); Creatinine Clr Calc Pharmacy 12.5 ml/min; Est GFR (African American) 17.2 ml/min; Est GFR (Non-African American) 14.8 ml/min; Magnesium 2.7 mg/dl (1.8-2.4); Potassium 3.5 mmol/L (3.5-5.1)
[2020-11-26 00:53] LABS: Albumin Globulin Ratio 0.9 (0.9-2); Bilirubin,Total 0.5 mg/dl (0.2-1); Globulin 3.7 gm/dl (2.5-4.0); Phosphorus 2.9 mg/dl (2.5-4.9); Thyroid Stimulating Hormone 7.26 uIu/ml (0.300-4.500); Total Protein 7.1 gm/dl (6.4-8.2)
[2020-11-26 01:06] LABS: T4 Free Thyroxine 0.96 ng/dl (0.8-1.6)
[2020-11-26] MEDS ORDERED: SODIUM CHLORIDE 0.9% 250 ML IV ONE (01:26)
--- NOTE | 2020-11-26 01:55 | Emergency Department Note ---
History of Present Illness General Chief complaint: Weakness Stated complaint: weakness, tiredness, no appetite Time Seen by Provider: 11/25/20 23:36 Source: patient and family Mode of arrival: wheelchair Limitations: no limitations History of Present Illness Provider complaint: Weakness, no appetite Onset (ago): week(s) This is an 85-year-old female who presents due to concern for worsening weakness and difficulty walking as well as decreasing appetite and oral intake. Patient denies any abdominal pain. States she has no appetite or desire to eat, and daughter bedside states that she has been subsisting on protein drinks. States she drinks very little water. She states she recently started hemodialysis back in the fall. She goes on Tuesdays, , and Saturdays. Patient states she feels very weak and tired after dialysis. She denies fevers or chills. Patient states she does still make a small amount of urine. Denies any change in bowel movements. States lower extremity swelling has improved since initiating dialysis. She denies any URI symptoms. Daughter concerned that perhaps dehydration is contributing to increasing weakness as well as poor intake. State only medication change has been the addition of Remeron several weeks ago to help with sleep. States she does follow with Dr. Cavanaugh for nephrology and saw her recently. Daughter also states she was recently diagnosed with atrial fibrillation. Pt seen during a time of high acuity and national emergency pandemic while wearing PPE. Home Medications Medication Instructions Recorded Confirmed Type clopidogrel [Plavix] 75 mg PO QAM 08/22/18 11/26/20 History tramadol 50 mg PO HS PRN 08/22/18 11/26/20 History acetaminophen [Tylenol Extra 500 - 1,000 mg PO Q6H PRN 12/20/18 11/26/20 History Strength] Lantus U-100 Insulin 10 unit SUBCUT QAM 01/10/20 11/26/20 History albuterol sulfate 2 puff INHALATION QID PRN 01/10/20 11/26/20 History aripiprazole [Abilify] 2 mg PO QAM 01/10/20 11/26/20 History docusate sodium 100 mg PO QAM PRN 01/10/20 11/26/20 History semaglutide 1 mg SUBCUT WK 01/10/20 11/26/20 History zinc sulfate [Zinc-220] 220 mg PO HS 01/10/20 11/26/20 History Renal Caps 1 cap PO HS #30 cap 03/28/20 11/26/20 Rx calcium acetate 667 mg PO TIDM 06/28/20 11/26/20 History cholecalciferol (vitamin D3) 125 mcg PO QAM 06/28/20 11/26/20 History [Vitamin D3] fluoxetine [Prozac] 20 mg PO QAM 06/28/20 11/26/20 History loratadine 10 mg PO QAM 06/28/20 11/26/20 History fluoxetine 10 mg PO QAM 11/26/20 11/26/20 History levothyroxine 200 mcg PO DAILY 11/26/20 11/26/20 History metoprolol succinate 100 mg PO BID 11/26/20 11/26/20 History mirtazapine 15 mg PO HS 11/26/20 11/26/20 History Allergies Allergy/AdvReac Type Severity Reaction Status Date / Time No Known Allergies Allergy Verified 11/26/20 00:03 Past Med/Surg History Medical History Anemia due to chronic kidney disease Asthma D.O.E > USES RES. INH A FEW TIMES A WEEK CAD (coronary artery disease) Cardiac cath 2011 demonstrated nonobstructive disease CHF (congestive heart failure) Chronic diastolic CHF (congestive heart failure) FOLLOWS PORTILLO SAFIA CVA (cerebral vascular accident) 2 YRS AGO> [facility]> GENERALIZED WEAKNESS SINCE> NO NEUROLOGY-NO NEW ISSUES Depression Diabetes mellitus, type II IDDM Diabetic polyneuropathy Dialysis patient TU//SAT > IN [facility] Dyslipidemia ESRD (end stage renal disease) Previously stage III CKD, hospitalized in [place] for fall 03/04/20, found to be in BARBARA. Tx to [facility] with worsening BARBARA, felt 2/2 ATN. Perm cath placed and dialysis initiated. GERD (gastroesophageal reflux disease) UNDER CONTROL History of mitral valve disease S/P mitral valve repair 2012. Mild mitral stenosis noted on 03/10/20 echo. History of pleural effusion With multiple thoracentesis > LAST EPISODE 2 YRS AGO PER PT Hx MRSA infection 02/2020 RIGHT 2ND TOE STILL BLEEDS AT TIMES, NO LONGER ON TREATMENT Hypertension Hypothyroidism Iron deficiency anemia Osteoporosis SOB (shortness of breath) on exertion FLAT SURFACES ANY ELEVATION Venous insufficiency of both lower extremities Surgical History History of cardiac cath 2012> NO STENTS> [facility] History of colonoscopy History of esophagogastroduodenoscopy (EGD) History of tooth extraction History of vascular access device HAS PRESENTLY TO RIGHT CHEST S/P patent foramen ovale closure 2013 > [facility] Status post cataract extraction BILAT Status post cholecystectomy Status post hysterectomy Status post mitral valve repair 2013 > [facility] Family History Other Family history non-contributory Social History Smoking Status: Former smoker Second Hand Exposure: Yes (PARENTS SMOKED); Hx Alcohol Use: No Hx Substance Use: No Preferred Language: Turkmen Communication Ability: Effective 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 and A total of 10 systems reviewed and were otherwise negative Physical Exam Vital Signs Vital Signs - 24 hr 11/26/20 04:30 11/26/20 05:00 11/26/20 05:30 Pulse Rate 88 109 H 102 H Pulse Rate from SpO2 Sensor 107 H 113 H Respiratory Rate 15 4 L 17 Blood Pressure 124/86 114/71 120/74 Blood Pressure Mean 98 85 89 Pulse Oximetry 97 98 98 Oxygen Delivery Method Room Air Room Air Room Air 11/26/20 06:00 Pulse Rate 90 Pulse Rate from SpO2 Sensor 99 H Respiratory Rate 20 Blood Pressure 112/89 Blood Pressure Mean 96 Pulse Oximetry 100 Oxygen Delivery Method Room Air GENERAL: alert, unwell appearing, well nourished, mild distress, non-toxic EYE EXAM: normal conjunctiva, PERRL and EOM's grossly intact OROPHARYNX: no exudate, no erythema, lips, buccal mucosa, and tongue normal and mucous membranes are moist NECK: supple, no nuchal rigidity, no adenopathy, non-tender LUNGS: Clear to auscultation. Normal chest wall mechanics, no w/r/r HEART: no murmurs, S1 normal and S2 normal CHEST: Tunneled catheter noted right anterior superior chest wall, no surrounding erythema, no discharge or bleeding. ABDOMEN: abdomen soft, mild epigastric discomfort, normo-active bowel sounds, no masses, no rebound or guarding. BACK: Back is symmetrical on inspection and there is no deformity, no midline tenderness, no CVA tenderness. SKIN: no rashes and no bruising UPPER EXTREMITIES: upper extremities are grossly normal. FROM, nml pulses b/l. LOWER EXTREMITIES: 1+ b/l pitting edema. FROM, nml pulses b/l. NEURO EXAM: Normal sensorium, cranial nerves II-XII grossly intact, normal speech, no gross weakness of arms, no gross weakness of legs. Gross sensation intact. Course Course 0147: No prior history of liver dysfunction or abnormal LFTs. Discussed imaging as a precaution given complaints. 0402: Updated patient and family on results. 0410: Discussed with Dr. Jamison, general surgery. He will see in consult. Agrees with antibiotic coverage. No additional orders recommended. Does not feel patient needs emergently taken to the OR. 0416: Discussed with Dr. Vaca, hospitalist. 0417: Updated patient and family on discussion with consultants. Administered Medications Aripiprazole (Aripiprazole 1 Mg/Ml Oral Soln 150 Ml Btl) 2 mg PO QAM COUNT INCLUDES THE [facility] Stop: 12/26/20 08:59 Last Admin: 11/26/20 08:23 Dose: 2 mg Documented by: [id number] Calcium Acetate (Calcium Acetate 667 Mg Cap/Tab) 667 mg PO TIDM COUNT INCLUDES THE [facility] Stop: 12/26/20 07:59 Last Admin: 11/26/20 17:32 Dose: 667 mg Documented by: [id number] Admin: 11/26/20 12:08 Dose: 667 mg Documented by: [id number] Admin: 11/26/20 08:24 Dose: 667 mg Documented by: [id number] Clopidogrel Bisulfate (Clopidogrel Bisulfate 75 Mg Tab) 75 mg PO QAM COUNT INCLUDES THE [facility] Stop: 12/26/20 08:59 Last Admin: 11/26/20 08:23 Dose: 75 mg Documented by: [id number] Docusate Sodium (Docusate Sodium 100 Mg Cap) 100 mg PO QAM PRN PRN Reason: Constipation Stop: 12/26/20 07:24 Last Admin: 11/26/20 08:23 Dose: 100 mg Documented by: [id number] Fluoxetine HCl (Fluoxetine Hcl 20 Mg Cap) 20 mg PO QAM [facility] Stop: 12/26/20 08:59 Last Admin: 11/26/20 08:24 Dose: 20 mg Documented by: [id number] Fluoxetine HCl (Fluoxetine Hcl 10 Mg Cap) 10 mg PO QAM COUNT INCLUDES THE [facility] Stop: 12/26/20 08:59 Last Admin: 11/26/20 08:23 Dose: 10 mg Documented by: [id number] Piperacillin Sod/Tazobactam (Sod 3.375 gm/ Dextrose) 115 mls @ 28.75 mls/hr IV Q12H COUNT INCLUDES THE [facility]; Protocol Stop: 12/06/20 12:59 Last Admin: 11/27/20 00:35 Dose: 28.8 mls/hr Documented by: [id number] Infusion: 11/26/20 16:14 Dose: 0 mls/hr Documented by: [id number] Admin: 11/26/20 12:09 Dose: 28.8 mls/hr Documented by: [id number] Insulin Aspart (Insulin Aspart 100 Units/Ml 3 Ml Pen) 0 units SC ACHS COUNT INCLUDES THE [facility] Stop: 12/26/20 07:29 Last Admin: 11/26/20 21:52 Dose: 1 units Documented by: [id number] Cosigned by: [id number] Admin: 11/26/20 17:31 Dose: Not Given Documented by: [id number] Admin: 11/26/20 12:08 Dose: 1 units Documented by: [id number] Cosigned by: [id number] Admin: 11/26/20 07:30 Dose: Not Given Documented by: [id number] Levothyroxine Sodium (Levothyroxine Sodium 200 Mcg Tablet) [facility] Stop: 12/26/20 07:59 Last Admin: 11/26/20 08:23 Dose: 200 mcg Documented by: [id number] Loratadine (Lor[facility]adine 10 Mg Tab) [facility] [place] Stop: 12/26/20 08:59 Last Admin: 11/26/20 08:23 Dose: 10 mg Documented by: [id number] Metoprolol Succinate (Metoprolol Succ 50mg Ext Rel Tab) 100 mg PO BID COUNT INCLUDES THE [facility] Stop: 12/26/20 08:59 Last Admin: 11/26/20 22:10 Dose: 100 mg Documented by: [id number] Admin: 11/26/20 08:24 Dose: 100 mg Documented by: [id number] Vitamin B Complex/Folic Acid (Nephrocaps) 1 cap PO HS COUNT INCLUDES THE [facility] Stop: 12/26/20 20:59 Last Admin: 11/26/20 22:10 Dose: 1 cap Documented by: [id number] Vitamin D (Cholecalciferol 1,000 Units 25 Mcg Tab) 5,000 units PO QAM [facility] Stop: 12/26/20 08:59 Last Admin: 11/26/20 08:23 Dose: 5,000 units Documented by: [id number] Zinc Sulfate (Zinc Sulfate 220 Mg Capsule) 220 mg PO HS [facility] Stop: 12/26/20 20:59 Last Admin: 11/26/20 22:10 Dose: 220 mg Documented by: [id number] Discontinued Medications Heparin Sodium (Porcine) (Heparin Sod (Porcine) 1000 Unit/Ml) 1,000 units IV TODAY@1300 [facility] Stop: 11/26/20 23:59 Last Admin: 11/26/20 13:22 Dose: Not Given Documented by: [id number] Sodium Chloride (Nss) 250 mls @ 999 mls/hr IV .Q16M ONE Stop: 11/26/20 01:41 Last Infusion: 11/26/20 01:51 Dose: 0 mls/hr Documented by: [id number] Admin: 11/26/20 01:31 Dose: 999 mls/hr Documented by: [id number] Piperacillin Sod/Tazobactam Sod (Zosyn) 4.5 gm in 120 mls @ 240 mls/hr IV NOW ONE Stop: 11/26/20 04:34 Last Infusion: 11/26/20 05:05 Dose: 0 mls/hr Documented by: [id number] Admin: 11/26/20 04:30 Dose: 240 mls/hr Documented by: [id number] Medical Decision Making Differential Diagnosis Differential Diagnosis includes but is not limited to dehydration, stroke, anemia, hypoglycemia, hyponatremia, hypernatremia, urinary tract infection, pneumonia, bronchitis, sepsis, gastroenteritis, additional abdominal pathology, metabolic abnormalities and infections. Medical Records Attestation: I reviewed the patient's medical records. Home Medications Current Medication List: was personally reviewed by me Laboratory Data Attestation: I reviewed the patient's lab results. Result diagrams: 11/26/20 08:04 11/26/20 08:04 Lab Results 11/25/20 11/25/20 11/25/20 Range/Units 23:45 23:45 23:45 WBC 5.96 (4.8-10.8) K/uL RBC 3.70 L (4.2-5.4) M/uL Hgb 11.3 L (12.0-16.0) g/dL Hct 36.7 L (37-47) % MCV 99.2 (80-100) fL MCH 30.5 (25-34) pg MCHC 30.8 L (32-36) g/dL RDW Std Deviation 59.0 H (36.4-46.3) fL RDW Coeff of Rosalba 16.3 H (11.5-14.5) % Plt Count 149 (130-400) K/uL MPV 10.1 (7.4-10.4) fL Immature Gran % (Auto) 0.3 % Neut % (Auto) 78.6 % Lymph % (Auto) 13.8 % Leon % (Auto) 6.9 % Eos % (Auto) 0.2 % Baso % (Auto) 0.2 % Neut # (Auto) 4.69 (1.4-6.5) K/uL Lymph # (Auto) 0.82 L (1.2-3.4) K/uL Leon # (Auto) 0.41 (0.11-0.59) K/uL Eos # (Auto) 0.01 (0-0.5) K/uL Baso # (Auto) 0.01 (0-0.2) K/uL Immature Gran # (Auto) 0.02 (0.00-0.02) K/uL Sodium 136 (136-145) mmol/L Potassium 3.5 (3.5-5.1) mmol/L Chloride 100 (98-107) mmol/L Carbon Dioxide 30 (21-32) mmol/L Anion Gap 6.0 (3-11) BUN 36 H (7-18) mg/dl Creatinine 2.83 H (0.6-1.2) mg/dl Est Cr Clr Drug Dosing 12.5 ml/min Est GFR ( Amer) 17.2 ml/min Est GFR (Non-Af Amer) 14.8 ml/min BUN/Creatinine Ratio 12.7 (10-20) Glucose 121 H (70-99) mg/dl Lactate (0.4-2.0) mmol/L Calcium 8.4 L (8.5-10.1) mg/dl Phosphorus 2.9 (2.5-4.9) mg/dl Magnesium 2.7 H (1.8-2.4) mg/dl Total Bilirubin 0.5 (0.2-1) mg/dl AST 74 H (15-37) U/L ALT 181 H (12-78) U/L Alkaline Phosphatase 126 H (45-117) U/L Total Protein 7.1 (6.4-8.2) gm/dl Albumin 3.4 (3.4-5.0) gm/dl Globulin 3.7 (2.5-4.0) gm/dl Albumin/Globulin Ratio 0.9 (0.9-2) Procalcitonin 0.06 (0-0.5) ng/ml TSH 7.260 H (0.300-4.500) uIu/ml Free T4 0.96 (0.8-1.6) ng/dl COVID-19 Eval Order SARS-CoV-2 (PCR) (Negative) 11/26/20 11/26/20 11/26/20 Range/Units 01:33 01:33 04:17 WBC (4.8-10.8) K/uL RBC (4.2-5.4) M/uL Hgb (12.0-16.0) g/dL Hct (37-47) % MCV (80-100) fL MCH (25-34) pg MCHC (32-36) g/dL RDW Std Deviation (36.4-46.3) fL RDW Coeff of Rosalba (11.5-14.5) % Plt Count (130-400) K/uL MPV (7.4-10.4) fL Immature Gran % (Auto) % Neut % (Auto) % Lymph % (Auto) % Leon % (Auto) % Eos % (Auto) % Baso % (Auto) % Neut # (Auto) (1.4-6.5) K/uL Lymph # (Auto) (1.2-3.4) K/uL Leon # (Auto) (0.11-0.59) K/uL Eos # (Auto) (0-0.5) K/uL Baso # (Auto) (0-0.2) K/uL Immature Gran # (Auto) (0.00-0.02) K/uL Sodium (136-145) mmol/L Potassium (3.5-5.1) mmol/L Chloride (98-107) mmol/L Carbon Dioxide (21-32) mmol/L Anion Gap (3-11) BUN (7-18) mg/dl Creatinine (0.6-1.2) mg/dl Est Cr Clr Drug Dosing ml/min Est GFR ( Amer) ml/min Est GFR (Non-Af Amer) ml/min BUN/Creatinine Ratio (10-20) Glucose (70-99) mg/dl Lactate 1.4 (0.4-2.0) mmol/L Calcium (8.5-10.1) mg/dl Phosphorus (2.5-4.9) mg/dl Magnesium (1.8-2.4) mg/dl Total Bilirubin (0.2-1) mg/dl AST (15-37) U/L ALT (12-78) U/L Alkaline Phosphatase (45-117) U/L Total Protein (6.4-8.2) gm/dl Albumin (3.4-5.0) gm/dl Globulin (2.5-4.0) gm/dl Albumin/Globulin Ratio (0.9-2) Procalcitonin (0-0.5) ng/ml TSH (0.300-4.500) uIu/ml Free T4 (0.8-1.6) ng/dl COVID-19 Eval Order Covid19 at [facility] SARS-CoV-2 (PCR) NEGATIVE (Negative) Imaging Data Radiologist's Impression: Chest X-Ray 11/26/20 00:25 XR chest 1V portable CLINICAL HISTORY: Progressive weakness. COMPARISON STUDY: 05/18/2020 FINDINGS: The heart remains enlarged. There is a dual-lumen right-sided central venous catheter. A valve replacement is again evident. There is improvement in the previously described pulmonary vascular congestion. There are persistent but improving bibasilar airspace opacities.[There is blunting of the lateral costophrenic angle suggesting trace effusions. IMPRESSION: 1. Cardiomegaly and improving pulmonary vascular congestion 2. Persistent but improving bibasilar airspace opacities ACT 112: Negative or not required by law. Electronically signed by: Juan Miguel Falk M.D. 11/26/2020 6:04 AM Abdomen/Pelvis CT 11/26/20 01:55 CT SCAN OF THE ABDOMEN AND PELVIS WITHOUT CONTRAST CLINICAL HISTORY: Decreased appetite. Elevated LFTs. COMPARISON STUDY: August 2017 TECHNIQUE: CT scan of the abdomen and pelvis was performed from the lung bases to the proximal femurs. Images are reviewed in the axial, sagittal, and coronal planes. IV contrast was not administered for this examination. A dose lowering technique was utilized adhering to the principles of ALARA. CT DOSE: 272.86 mGy.cm FINDINGS: Lower chest: The heart is enlarged. There is mild lower lobe bronchial wall thickening. There is interlobular septal edema. There are basilar opacities, likely atelectatic. There are trace pleural effusions. Liver: There is pneumobilia. No space-occupying hepatic masses are visualized in this noncontrast study. Gallbladder: Not visualized presumed surgically absent Spleen: Normal in size and attenuation. Pancreas: There is distal glandular atrophy. There is persistent marked dilatation of the pancreatic duct at the level of the pancreatic neck and proximal body. This measures 12 mm. Adrenal glands: Unremarkable. Kidneys: There are vascular calcifications. There is no hydronephrosis. No renal, ureteral, or bladder calculi are visualized. Left renal masses, likely represent a combination of cysts and hyperdense cysts. Bowel: There are no transition zones to indicate bowel obstruction. There is pneumatosis intestinalis most pronounced the level of the hepatic flexure. There are a few droplets of extraluminal air within the mesentery. There is no evidence of acute diverticulitis. The appendix is not clearly visualized. Peritoneum: There is no intraperitoneal free air or abdominal ascites. Vasculature: There are moderately extensive vascular calcifications. There is no evidence of abdominal aortic aneurysm Adenopathy: None. Pelvic viscera: The uterus is surgically absent. There is nonspecific prominence of the soft tissues at the level of the vagina/lower rectum. Skeletal structures: There is an old superior endplate L1 compression fracture IMPRESSION: 1. No evidence of bowel structure. 2. Pneumatosis intestinalis with small droplets of air within the mesentery. Clinical correlation will be necessary to differentiate benign pneumatosis from bowel ischemia. 3. Pneumobilia 4. No renal, ureteral, or bladder calculi identified 5. Distal pancreatic glandular atrophy. Persistent marked dilatation of the pancreatic duct at the level the pancreatic neck and proximal body measuring 12 mm 6. Interlobular septal edema visualized at the lung bases. ACT 112: Negative or not required by law. Electronically signed by: Juan Miguel Falk M.D. 11/26/2020 7:[address] abdomen pelvis without contrast: There is diffuse pneumatosis involving upper descending colon and hepatic flexure with mild foci of adjacent pneumoperitoneum. The findings are compatible with bowel wall ischemia and necrosis. Gallbladder is absent. Common bile duct is distended which may be related to prior cholecystectomy. There is pneumobilia with gas demonstrated in the CBD and left hepatic lobe. No fluid collection or hydronephrosis. No evidence of obstruction. Chronic ap pearance mild compression fracture of L1 vertebral body. Radiologist: Hedy Ortiz MD ECG Data Attestation: I personally reviewed and interpreted this ECG as follows: Indication: + nausea Rate (beats per minute): 113 Rhythm: + atrial fibrillation ECG Intervals/blocks: + Normal QRS and + Normal QT ECG ST segments: + Nonspecific ST abnormalities MDM Narrative This is an elderly female with complicated past medical history brought in due to concern for worsening oral intake, dehydration, and increased weakness. Patient found to be in rapid A. fib, does have history of A. fib, unsure if the rate was related to suboptimal control versus component of dehydration or pain. No evidence of acute infectious etiology on initial labs. Due to abnormal LFTs which was new for the patient as well as GI complaints, patient sent for CT imaging. Unfortunately at this had several abnormalities. I did call and discussed the case with general surgery who recommended hospitalist admission and they will see and evaluate. They were in agreement with empiric coverage with antibiotics as a precaution. Lactic acid and procalcitonin that were added were reassuring. Patient's exam was not consistent with acute pneumoperitoneum or evolving mesenteric ischemia. Patient was given a small IV fluid bolus in the emergency room and heart rate did slow some although was still A. fib with RVR. Patient and family made aware of results as well as discussed plan. Case discussed with hospitalist for additional inpatient evaluation and management. An order was placed for continuous cardiac monitoring. The monitor shows a rate of 113_ with _atrial fibrillation rhythm. Impression & Plan Generalized weakness, Poor appetite, Acute dehydration, Abnormal LFTs, CKD (chronic kidney disease), Pneumatosis intestinalis Discharge Plan Visit Data Chief Complaint: Weakness Stated Complaint: weakness, tiredness, no appetite ED Provider: Marya Boyd Discharge Problem: Generalized weakness, Poor appetite, Acute dehydration, Abnormal LFTs, CKD (chronic kidney disease), Pneumatosis intestinalis Patient Disposition: Admitted As Inpatient Discharge Instructions Interventions: ED Discharge Assessment Last Done: 11/26/20 06:48 Discharge Problem: CKD (chronic kidney disease) Qualifiers: Chronic kidney disease stage: unspecified stage Qualified Code(s): N18.9 - Chronic kidney disease, unspecified
[2020-11-26] MEDS ORDERED: PIPERACILLIN/TAZOBACTAM 4.5 GM/120 ML BAG IV ONE (04:05)
[2020-11-26] MEDS ORDERED: PIPERACILL/TAZOBAC CONSULT ACTIVE PRN (04:05)
--- NOTE | 2020-11-26 06:05 | XRay Report ---
XR chest 1V portable CLINICAL HISTORY: Progressive weakness. COMPARISON STUDY: 05/18/2020 FINDINGS: The heart remains enlarged. There is a dual-lumen right-sided central venous catheter. A va lve replacement is again evident. There is improvement in the previously described pulmonary vascular congestion. There are persistent but improving bibasilar airspace opacities.[There is blunting of th e lateral costophrenic angle suggesting trace effusions. IMPRESSION: 1. Cardiomegaly and improving pulmonary vascular congestion 2. Persistent but improving bibasilar airspace opacities ACT 112: Negative or not required by law. Electronically signed by: Juan Miguel Falk M.D. 11/26/2020 6:04 AM
--- NOTE | 2020-11-26 07:13 | CT Scan Report ---
CT SCAN OF THE ABDOMEN AND PELVIS WITHOUT CONTRAST CLINICAL HISTORY: Decreased appetite. Elevated LFTs. COMPARISON STUDY: August 2017 TECHNIQUE: CT scan of the abdomen and pelvis was performed from the lung bases to the proximal femurs . Images are reviewed in the axial, sagittal, and coronal planes. IV contrast was not administered fo r this examination. A dose lowering technique was utilized adhering to the principles of ALARA. CT DOSE: 272.86 mGy.cm FINDINGS: Lower chest: The heart is enlarged. There is mild lower lobe bronchial wall thickening. There is inte rlobular septal edema. There are basilar opacities, likely atelectatic. There are trace pleural effus ions. Liver: There is pneumobilia. No space-occupying hepatic masses are visualized in this noncontrast masood dy. Gallbladder: Not visualized presumed surgically absent Spleen: Normal in size and attenuation. Pancreas: There is distal glandular atrophy. There is persistent marked dilatation of the pancreatic duct at the level of the pancreatic neck and proximal body. This measures 12 mm. Adrenal glands: Unremarkable. Kidneys: There are vascular calcifications. There is no hydronephrosis. No renal, ureteral, or bladde r calculi are visualized. Left renal masses, likely represent a combination of cysts and hyperdense c ysts. Bowel: There are no transition zones to indicate bowel obstruction. There is pneumatosis intestinalis most pronounced the level of the hepatic flexure. There are a few droplets of extraluminal air withi n the mesentery. There is no evidence of acute diverticulitis. The appendix is not clearly visualized . Peritoneum: There is no intraperitoneal free air or abdominal ascites. Vasculature: There are moderately extensive vascular calcifications. There is no evidence of abdomina l aortic aneurysm Adenopathy: None. Pelvic viscera: The uterus is surgically absent. There is nonspecific prominence of the soft tissues at the level of the vagina/lower rectum. Skeletal structures: There is an old superior endplate L1 compression fracture IMPRESSION: 1. No evidence of bowel structure. 2. Pneumatosis intestinalis with small droplets of air within the mesentery. Clinical correlation rivera l be necessary to differentiate benign pneumatosis from bowel ischemia. 3. Pneumobilia 4. No renal, ureteral, or bladder calculi identified 5. Distal pancreatic glandular atrophy. Persistent marked dilatation of the pancreatic duct at the le jacqui the pancreatic neck and proximal body measuring 12 mm 6. Interlobular septal edema visualized at the lung bases. ACT 112: Negative or not required by law. Electronically signed by: Juan Miguel Falk M.D. 11/26/2020 7:11 AM
[2020-11-26] MEDS ORDERED: traMADol HCL 50 MG TABLET PO PRN (07:25)
[2020-11-26] MEDS ORDERED: NITROGLYCERIN SL 0.4 MG/TAB TAB SL PRN (07:25)
[2020-11-26] MEDS ORDERED: ACETAMINOPHEN 325 MG TAB PO PRN (07:25)
[2020-11-26] MEDS ORDERED: ALBUTEROL HFA 8 GM INHALER INH PRN (07:25)
[2020-11-26] MEDS ORDERED: DOCUSATE SODIUM 100 MG CAP PO PRN (07:25)
[2020-11-26] MEDS: INSULIN ASPART 100 UNITS/ML 3 ML PEN SC SCH ×4 (07:30→21:52)
--- NOTE | 2020-11-26 07:46 | Surgery Consultation ---
Date of Consultation November 26, 2020 Assessment & Plan (1) Pneumatosis intestinalis: pt is a 85 year-old female who presents to ER with weakness, CT scan finding- Pneumatosis intestinalis with small droplets of air within the mesentery. IMP: Pneumatosis intestinalis, lactic acid 1.6. no surgical indication now, I agree with conservative treatment now, IV fluid, IV antibiotic, clear diet, repeat labs in morning, pt may need IV contrast CT scan abd + pelvis if pt develops abdominal pain, pain, will F/U, Present on Admission?: Yes History of Present Illness Attending Physician: Paula Shirley MD History of Present Illness General Chief complaint: Weakness Stated complaint: weakness, tiredness, no appetite Time Seen by Provider: 11/25/20 23:36 Source: patient and family Mode of arrival: wheelchair Limitations: no limitations History of Present Illness Provider complaint: Weakness, no appetite Onset (ago): week(s) This is an 85-year-old female who presents due to concern for worsening weakness and difficulty walking as well as decreasing appetite and oral intake. Patient denies any abdominal pain. States she has no appetite or desire to eat, and daughter bedside states that she has been subsisting on protein drinks. States she drinks very little water. She states she recently started hemodialysis back in the fall. She goes on Tuesdays, , and Saturdays. Patient states she feels very weak and tired after dialysis. She denies fevers or chills. Patient states she does still make a small amount of urine. Denies any change in bowel movements. States lower extremity swelling has improved since initiating dialysis. She denies any URI symptoms. Daughter concerned that perhaps dehydration is contributing to increasing weakness as well as poor intake. State only medication change has been the addition of Remeron several weeks ago to help with sleep. States she does follow with Dr. Cavanaugh for nephrology and saw her recently. Daughter also states she was recently diagnosed with atrial fibrillation. I ( Segun Jamison MD ) got a call for consult CT scan finding- Pneumatosis intestinalis, I reviewed pt's H/P, labs, CT scan with pt, pt denies any abdominal pain, no bloody stool, passed BM yesterday, pt denies nausea, no vomiting, no fever. Pt seen during a time of high acuity and national emergency pandemic while wearing PPE. Home Medications Medication Instructions Recorded Confirmed Type clopidogrel [Plavix] 75 mg PO QAM 08/22/18 11/26/20 History tramadol 50 mg PO HS PRN 08/22/18 11/26/20 History acetaminophen [Tylenol Extra 500 - 1,000 mg PO Q6H PRN 12/20/18 11/26/20 History Strength] Lantus U-100 Insulin 10 unit SUBCUT QAM 01/10/20 11/26/20 History albuterol sulfate 2 puff INHALATION QID PRN 01/10/20 11/26/20 History aripiprazole [Abilify] 2 mg PO QAM 01/10/20 11/26/20 History docusate sodium 100 mg PO QAM PRN 01/10/20 11/26/20 History semaglutide 1 mg SUBCUT WK 01/10/20 11/26/20 History zinc sulfate [Zinc-220] 220 mg PO HS 01/10/20 11/26/20 History Renal Caps 1 cap PO HS #30 cap 03/28/20 11/26/20 Rx calcium acetate 667 mg PO TIDM 06/28/20 11/26/20 History cholecalciferol (vitamin D3) 125 mcg PO QAM 06/28/20 11/26/20 History [Vitamin D3] fluoxetine [Prozac] 20 mg PO QAM 06/28/20 11/26/20 History loratadine 10 mg PO QAM 06/28/20 11/26/20 History fluoxetine 10 mg PO QAM 11/26/20 11/26/20 History levothyroxine 200 mcg PO DAILY 11/26/20 11/26/20 History metoprolol succinate 100 mg PO BID 11/26/20 11/26/20 History mirtazapine 15 mg PO HS 11/26/20 11/26/20 History Allergies Allergy/AdvReac Type Severity Reaction Status Date / Time No Known Allergies Allergy Verified 11/26/20 00:03 Past Med/Surg History Medical History Anemia due to chronic kidney disease Asthma D.O.E > USES RES. INH A FEW TIMES A WEEK CAD (coronary artery disease) Cardiac cath 2011 demonstrated nonobstructive disease CHF (congestive heart failure) Chronic diastolic CHF (congestive heart failure) FOLLOWS PORTILLO BAIG CVA (cerebral vascular accident) 2 YRS AGO> [facility]> GENERALIZED WEAKNESS SINCE> NO NEUROLOGY-NO NEW ISSUES Depression Diabetes mellitus, type II IDDM Diabetic polyneuropathy Dialysis patient TUE/TH/SAT > IN [facility] Dyslipidemia ESRD (end stage renal disease) Previously stage III CKD, hospitalized [place] for [place] 03/04/20, found to be in BARBARA. Tx to [facility] with worsening BARBARA, felt 2/2 ATN. Perm cath placed and dialysis initiated. GERD (gastroesophageal reflux disease) UNDER CONTROL History of mitral valve disease S/P mitral valve repair 2012. Mild mitral stenosis noted on 03/10/20 echo. History of pleural effusion With multiple thoracentesis > LAST EPISODE 2 YRS AGO PER PT Hx MRSA infection 02/2020 RIGHT 2ND TOE STILL BLEEDS AT TIMES, NO LONGER ON TREATMENT Hypertension Hypothyroidism Iron deficiency anemia Osteoporosis SOB (shortness of breath) on exertion FLAT SURFACES ANY ELEVATION Venous insufficiency of both lower extremities Surgical History History of cardiac cath 2011> NO STENTS> [facility] History of colonoscopy History of esophagogastroduodenoscopy (EGD) History of tooth extraction History of vascular access device HAS PRESENTLY TO RIGHT CHEST S/P patent foramen ovale closure 2012 > KLARISSA Status post cataract extraction BILAT Status post cholecystectomy Status post hysterectomy Status post mitral valve repair 2012 > KLARISSA Family History Other Family history non-contributory Social History Smoking Status: Never smoker Second Hand Exposure: Yes (PARENTS SMOKED); Hx Alcohol Use: No Hx Substance Use: No Preferred Language: Cuban Communication Ability: Effective Field Support Engineer Required: No Beliefs That Will Affect Care: None marital status: Current Living Situation: Spouse current occupational status: retired How many Children do You have: 3 Feels Safe at Home: Yes Assistive Devices: Denture - Upper, Glasses and Walker Review of Systems See HPI for pertinent positives & negatives. and A total of 10 systems reviewed and were otherwise negative Allergies Allergy/AdvReac Type Severity Reaction Status Date / Time No Known Allergies Allergy Verified 11/26/20 00:03 Home Medications Medication Instructions Recorded Confirmed Type clopidogrel [Plavix] 75 mg PO QAM 08/22/18 11/26/20 History tramadol 50 mg PO HS PRN 08/22/18 11/26/20 History acetaminophen [Tylenol Extra 500 - 1,000 mg PO Q6H PRN 12/20/18 11/26/20 History Strength] Lantus U-100 Insulin 10 unit SUBCUT QAM 01/10/20 11/26/20 History albuterol sulfate 2 puff INHALATION QID PRN 01/10/20 11/26/20 History aripiprazole [Abilify] 2 mg PO QAM 01/10/20 11/26/20 History docusate sodium 100 mg PO QAM PRN 01/10/20 11/26/20 History semaglutide 1 mg SUBCUT WK 01/10/20 11/26/20 History zinc sulfate [Zinc-220] 220 mg PO HS 01/10/20 11/26/20 History Renal Caps 1 cap PO HS #30 cap 03/28/20 11/26/20 Rx calcium acetate 667 mg PO TIDM 06/28/20 11/26/20 History cholecalciferol (vitamin D3) 125 mcg PO QAM 06/28/20 11/26/20 History [Vitamin D3] fluoxetine [Prozac] 20 mg PO QAM 06/28/20 11/26/20 History loratadine 10 mg PO QAM 06/28/20 11/26/20 History fluoxetine 10 mg PO QAM 11/26/20 11/26/20 History levothyroxine 200 mcg PO DAILY 11/26/20 11/26/20 History metoprolol succinate 100 mg PO BID 11/26/20 11/26/20 History mirtazapine 15 mg PO HS 11/26/20 11/26/20 History Patient History Medical History Anemia due to chronic kidney disease Asthma D.O.E > USES RES. INH A FEW TIMES A WEEK CAD (coronary artery disease) Cardiac cath 2011 demonstrated nonobstructive disease CHF (congestive heart failure) Chronic diastolic CHF (congestive heart failure) FOLLOWS PORTILLO BAIG CVA (cerebral vascular accident) 2 YRS AGO> [facility]> GENERALIZED WEAKNESS SINCE> NO NEUROLOGY-NO NEW ISSUES Depression Diabetes mellitus, type II IDDM Diabetic polyneuropathy Dialysis patient TUE//SAT > IN [facility] Dyslipidemia ESRD (end stage renal disease) Previously stage III CKD, hospitalized [place] for [place] 03/04/20, found to be in BARBARA. Tx to [facility] with worsening BARBARA, felt 2/2 ATN. Perm cath placed and dialysis initiated. GERD (gastroesophageal reflux disease) UNDER CONTROL History of mitral valve disease S/P mitral valve repair 2012. Mild mitral stenosis noted on 03/10/20 echo. History of pleural effusion With multiple thoracentesis > LAST EPISODE 2 YRS AGO PER PT Hx MRSA infection 02/2020 RIGHT 2ND TOE STILL BLEEDS AT TIMES, NO LONGER ON TREATMENT Hypertension Hypothyroidism Iron deficiency anemia Osteoporosis SOB (shortness of breath) on exertion FLAT SURFACES ANY ELEVATION Venous insufficiency of both lower extremities Surgical History History of cardiac cath 2011> NO STENTS> [facility] History of colonoscopy History of esophagogastroduodenoscopy (EGD) History of tooth extraction History of vascular access device HAS PRESENTLY TO RIGHT CHEST S/P patent foramen ovale closure 2012 > KLARISSA Status post cataract extraction BILAT Status post cholecystectomy Status post hysterectomy Status post mitral valve repair 2012 > KLARISSA Family History Other Family history non-contributory Social History Smoking Status: Never smoker Second Hand Exposure: Yes (PARENTS SMOKED); Hx Alcohol Use: No Hx Substance Use: No Preferred Language: Cuban Communication Ability: Effective Field Support Engineer Required: No Beliefs That Will Affect Care: None marital status: Current Living Situation: Spouse current occupational status: retired How many Children do You have: 3 Feels Safe at Home: Yes Assistive Devices: Denture - Upper, Glasses and Walker Physical Exam Constitutional: WD/WN, vitals as above well developed and well nourished Eyes: PERRL, conjunctivae normal, anicteric sclerae ENMT: external ear and nose normal, oropharynx normal Neck: trachea midline, no thyromegaly Respiratory: normal respiratory effort, lungs clear to auscultation normal respiratory effort Cardiovascular: RRR, no murmur, no edema Rate/Rhythm: regular rate and regular rhythm Gastrointestinal (Abdomen): normal bowel sounds, soft, nontender, no hepatosplenomegaly Percussion/Palpation: abdomen soft NT, ND, BS + Musculoskeletal: no cyanosis or clubbing, extremities motor strength 5/5 Skin: no rashes, warm and dry Neurologic: awake Psychiatric: Orientation: alert and oriented x 3 Results & Data ([facility]) Vital Signs (Past 12 Hours) Vital Signs Temp Pulse Pulse Resp BP BP Pulse Ox 11/26/20 07:26 102 H 18 129/78 98 11/26/20 06:30 96 H 10 L 124/69 98 11/26/20 06:00 90 20 112/89 100 11/26/20 05:30 102 H 17 120/74 98 11/26/20 05:00 109 H 4 L 114/71 98 11/26/20 04:30 88 15 124/86 97 11/26/20 04:00 100 H 15 113/73 100 11/26/20 03:30 104 H 9 L 116/88 96 11/26/20 02:53 105 H 20 116/77 99 11/26/20 02:30 108 H 14 136/85 99 11/26/20 02:00 101 H 12 142/79 H 98 11/26/20 01:30 105 H 14 119/81 100 11/26/20 01:00 111 H 7 L 109/64 99 11/26/20 00:30 113 H 13 123/80 99 11/26/20 00:00 108 H 20 113/87 100 11/25/20 23:46 100 11/25/20 23:10 36.6 C 115 H 20 113/64 98 Laboratory Results Abnormal lab results 11/25/20 11/25/20 Range/Units 23:45 23:45 RBC 3.70 L (4.2-5.4) M/uL Hgb 11.3 L (12.0-16.0) g/dL Hct 36.7 L (37-47) % MCHC 30.8 L (32-36) g/dL RDW Std Deviation 59.0 H (36.4-46.3) fL RDW Coeff of Rosalba 16.3 H (11.5-14.5) % Lymph # (Auto) 0.82 L (1.2-3.4) K/uL BUN 36 H (7-18) mg/dl Creatinine 2.83 H (0.6-1.2) mg/dl Glucose 121 H (70-99) mg/dl Calcium 8.4 L (8.5-10.1) mg/dl Magnesium 2.7 H (1.8-2.4) mg/dl AST 74 H (15-37) U/L ALT 181 H (12-78) U/L Alkaline Phosphatase 126 H (45-117) U/L TSH 7.260 H (0.300-4.500) uIu/ml Diagnostic Findings CT SCAN OF THE ABDOMEN AND PELVIS WITHOUT CONTRAST CLINICAL HISTORY: Decreased appetite. Elevated LFTs. COMPARISON STUDY: August 2017 TECHNIQUE: CT scan of the abdomen and pelvis was performed from the lung bases to the proximal femurs. Images are reviewed in the axial, sagittal, and coronal planes. IV contrast was not administered for this examination. A dose lowering technique was utilized adhering to the principles of ALARA. CT DOSE: 272.86 mGy.cm FINDINGS: Lower chest: The heart is enlarged. There is mild lower lobe bronchial wall thickening. There is interlobular septal edema. There are basilar opacities, likely atelectatic. There are trace pleural effusions. Liver: There is pneumobilia. No space-occupying hepatic masses are visualized in this noncontrast study. Gallbladder: Not visualized presumed surgically absent Spleen: Normal in size and attenuation. Pancreas: There is distal glandular atrophy. There is persistent marked dilatation of the pancreatic duct at the level of the pancreatic neck and proximal body. This measures 12 mm. Adrenal glands: Unremarkable. Kidneys: There are vascular calcifications. There is no hydronephrosis. No renal, ureteral, or bladder calculi are visualized. Left renal masses, likely represent a combination of cysts and hyperdense cysts. Bowel: There are no transition zones to indicate bowel obstruction. There is pneumatosis intestinalis most pronounced the level of the hepatic flexure. There are a few droplets of extraluminal air within the mesentery. There is no evidence of acute diverticulitis. The appendix is not clearly visualized. Peritoneum: There is no intraperitoneal free air or abdominal ascites. Vasculature: There are moderately extensive vascular calcifications. There is no evidence of abdominal aortic aneurysm Adenopathy: None. Pelvic viscera: The uterus is surgically absent. There is nonspecific prominence of the soft tissues at the level of the vagina/lower rectum. Skeletal structures: There is an old superior endplate L1 compression fracture IMPRESSION: 1. No evidence of bowel structure. 2. Pneumatosis intestinalis with small droplets of air within the mesentery. Clinical correlation will be necessary to differentiate benign pneumatosis from bowel ischemia. 3. Pneumobilia 4. No renal, ureteral, or bladder calculi identified 5. Distal pancreatic glandular atrophy. Persistent marked dilatation of the panc reatic duct at the level the pancreatic neck and proximal body measuring 12 mm 6. Interlobular septal edema visualized at the lung bases.
[2020-11-26 08:12] LABS: Basophils # (auto) 0.02 K/uL (0-0.2); Basophils % (auto) 0.4 %; Eosinophils # (auto) 0.03 K/uL (0-0.5); Eosinophils % (auto) 0.6 %; Hematocrit (blood only) 35.5 % (37-47); Hemoglobin 10.8 g/dL (12.0-16.0); Immature Granulocytes # (auto) 0.02 K/uL (0.00-0.02); Immature Granulocytes % (auto) 0.4 %; Lymphocytes % (auto) 13.9 %; Mean Corpuscular Hemoglobin 30.8 pg (25-34); Mean Corpuscular Hgb Conc 30.4 g/dL (32-36); Mean Corpuscular Volume 101.1 fL (80-100); Mean Platelet Volume 9.6 fL (7.4-10.4); Monocytes # (auto) 0.54 K/uL (0.11-0.59); Monocytes % (auto) 10.7 %; Neutrophils # (auto) 3.72 K/uL (1.4-6.5); Platelet Count 125 K/uL (130-400); RDW Coefficient of Variation 16.3 % (11.5-14.5); RDW Standard Deviation 60.5 fL (36.4-46.3); Red Blood Count 3.51 M/uL (4.2-5.4); White Blood Count 5.03 K/uL (4.8-10.8)
[2020-11-26] MEDS: CHOLECALCIFEROL 1,000 UNITS 25 MCG TAB PO SCH (08:23)
[2020-11-26] MEDS: CLOPIDOGREL BISULFATE 75 MG TAB PO SCH (08:23)
[2020-11-26] MEDS: LORATADINE 10 MG TAB PO SCH (08:23)
[2020-11-26] MEDS: FLUoxetine HCL 10 MG CAP PO SCH (08:23)
[2020-11-26] MEDS: ARIPIprazole 1 MG/ML ORAL SOLN 150 ML BTL PO SCH (08:23)
[2020-11-26] MEDS: LEVOTHYROXINE SODIUM 200 MCG TABLET PO SCH (08:23)
[2020-11-26] MEDS: FLUoxetine HCL 20 MG CAP PO SCH (08:24)
[2020-11-26] MEDS: METOPROLOL SUCC 50MG EXT REL TAB PO SCH ×2 (08:24→22:10)
[2020-11-26] MEDS: CALCIUM ACETATE 667 MG CAP/TAB PO SCH ×3 (08:24→17:32)
[2020-11-26 08:28] LABS: BUN Creatinine Ratio 12.7 (10-20); Calcium 8.3 mg/dl (8.5-10.1); Est GFR (African American) 16.3 ml/min; Est GFR (Non-African American) 14.1 ml/min; Magnesium 2.7 mg/dl (1.8-2.4); Potassium 3.8 mmol/L (3.5-5.1)
[2020-11-26 08:40] LABS: Estimated Average Glucose 108 mg/dl; Hemoglobin A1C 5.4 % (4.5-5.6)
--- NOTE | 2020-11-26 09:52 | Nephrology Consultation ---
Date of Consultation November 26, 2020 Assessment & Plan (1) ESRD (end stage renal disease): She is Saturday dialysis patient at [facility] Last dialyzed on Dialysis today as per outpatient prescription, no UF. Please continue all her outpatient medications (2) Pneumatosis intestinalis: As per primary/surgery History of Present Illness Reason for Consultation: Hemodialysis patient,(TTS) Attending Physician: Paula Shirley MD History of Present Illness 85-year-old ESRD on hemodialysis TTS at [facility], who was admitted with complaints of to worsening weakness and difficulty walking as well as decreasing appetite and oral intake. CT findings were consistent with pneumatosis intestinalis with small droplets of air within [place], she was reviewed by surgical team did not think that a surgical intervention is required at the moment. vitals have been normal, she has got chronic bilateral pedal edema which has improved after the start of hemodialysis. No complaints of shortness of breath, feels dry all the time. Nephrology calling for Hemodialysis support during the patient stay Last dialyzed on and is due for dialysis today Allergies Allergy/AdvReac Type Severity Reaction Status Date / Time No Known Allergies Allergy Verified 11/26/20 00:03 Home Medications Medication Instructions Recorded Confirmed Type clopidogrel [Plavix] 75 mg PO QAM 08/22/18 11/26/20 History tramadol 50 mg PO HS PRN 08/22/18 11/26/20 History acetaminophen [Tylenol Extra 500 - 1,000 mg PO Q6H PRN 12/20/18 11/26/20 History Strength] Lantus U-100 Insulin 10 unit SUBCUT QAM 01/10/20 11/26/20 History albuterol sulfate 2 puff INHALATION QID PRN 01/10/20 11/26/20 History aripiprazole [Abilify] 2 mg PO QAM 01/10/20 11/26/20 History docusate sodium 100 mg PO QAM PRN 01/10/20 11/26/20 History semaglutide 1 mg SUBCUT WK 01/10/20 11/26/20 History zinc sulfate [Zinc-220] 220 mg PO HS 01/10/20 11/26/20 History Renal Caps 1 cap PO HS #30 cap 03/28/20 11/26/20 Rx calcium acetate 667 mg PO TIDM 06/28/20 11/26/20 History cholecalciferol (vitamin D3) 125 mcg PO QAM 06/28/20 11/26/20 History [Vitamin D3] fluoxetine [Prozac] 20 mg PO QAM 06/28/20 11/26/20 History loratadine 10 mg PO QAM 06/28/20 11/26/20 History fluoxetine 10 mg PO QAM 11/26/20 11/26/20 History levothyroxine 200 mcg PO DAILY 11/26/20 11/26/20 History metoprolol succinate 100 mg PO BID 11/26/20 11/26/20 History mirtazapine 15 mg PO HS 11/26/20 11/26/20 History Patient History Medical History Anemia due to chronic kidney disease Asthma D.O.E > USES RES. INH A FEW TIMES A WEEK CAD (coronary artery disease) Cardiac cath 2011 demonstrated nonobstructive disease CHF (congestive heart failure) Chronic diastolic CHF (congestive heart failure) FOLLOWS PORTILLO BAIG CVA (cerebral vascular accident) 2 YRS AGO> [facility]> GENERALIZED WEAKNESS SINCE> NO NEUROLOGY-NO NEW ISSUES Depression Diabetes mellitus, type II IDDM Diabetic polyneuropathy Dialysis patient E//SAT > IN [facility] Dyslipidemia ESRD (end stage renal disease) Previously stage III CKD, hospitalized in [place] for fall 03/04/20, found to be in BARBARA. Tx to [facility] with worsening BARBARA, felt 2/2 ATN. Perm cath placed and dialysis initiated. GERD (gastroesophageal reflux disease) UNDER CONTROL History of mitral valve disease S/P mitral valve repair 2012. Mild mitral stenosis noted on 03/10/20 echo. History of pleural effusion With multiple thoracentesis > LAST EPISODE 2 YRS AGO PER PT Hx MRSA infection 02/2020 RIGHT 2ND TOE STILL BLEEDS AT TIMES, NO LONGER ON TREATMENT Hypertension Hypothyroidism Iron deficiency anemia Osteoporosis SOB (shortness of breath) on exertion FLAT SURFACES ANY ELEVATION Venous insufficiency of both lower extremities Surgical History History of cardiac cath 2011> NO STENTS> [facility] History of colonoscopy History of esophagogastroduodenoscopy (EGD) History of tooth extraction History of vascular access device HAS PRESENTLY TO RIGHT CHEST S/P patent foramen ovale closure 2012 > KLARISSA Status post cataract extraction BILAT Status post cholecystectomy Status post hysterectomy Status post mitral valve repair 2013 > KL[facility]ISSA Family History Other Family history non-contributory Social History Smoking Status: Former smoker Second Hand Exposure: Yes (PARENTS SMOKED); Hx Alcohol Use: No Hx Substance Use: No Preferred Language: Latvian Communication Ability: Effective Research Rn Spec Required: No Beliefs That Will Affect Care: None marital status: Current Living Situation: Spouse current occupational status: retired How many Children do You have: 3 Feels Safe at Home: Yes Assistive Devices: None Review of Systems Review of Systems: All systems reviewed & are unremarkable except as noted in HPI & below Very Cachectic, dry but comfortable with no shortness of breath Physical Exam Physical Exam: Ill appearing , cachetic,Comfortable,No shortness of breath, awake, alert. Chest-normal respiratory effort, CVS-RRR, no murmur, no edema Rate/Rhythm: regular rate and regular rhythm Abdomen-normal bowel sounds, soft, nontender, no hepatosplenomegaly, BS + Extremities-No edema no cyanosis or clubbing, extremities motor strength normal no rashes, warm and dry Results & Data ([facility]) Vital Signs (Past 12 Hours) Vital Signs Temp Pulse Pulse Resp BP BP Pulse Ox 11/26/20 08:50 107 H 11/26/20 07:26 102 H 18 129/78 98 11/26/20 06:30 96 H 10 L 124/69 98 11/26/20 06:00 90 20 112/89 100 11/26/20 05:30 102 H 17 120/74 98 11/26/20 05:00 109 H 4 L 114/71 98 11/26/20 04:30 88 15 124/86 97 11/26/20 04:00 100 H 15 113/73 100 11/26/20 03:30 104 H 9 L 116/88 96 11/26/20 02:53 105 H 20 116/77 99 11/26/20 02:30 108 H 14 136/85 99 11/26/20 02:00 101 H 12 142/79 H 98 11/26/20 01:30 105 H 14 119/81 100 11/26/20 01:00 111 H 7 L 109/64 99 11/26/20 00:30 113 H 13 123/80 99 11/26/20 00:00 108 H 20 113/87 100 11/25/20 23:46 100 11/25/20 23:10 36.6 C 115 H 20 113/64 98 Laboratory Results 11/26/20 08:04 11/26/20 08:04
--- NOTE | 2020-11-26 09:55 | History and Physical Report ---
DATE OF ADMISSION: 11/26/2020. CHIEF COMPLAINT: Weakness, poor appetite. HISTORY OF PRESENT ILLNESS: This is an 85-year-old female with a past medical history significant for persistent atrial fibrillation, diastolic CHF, recurrent pleural effusion requiring multiple thoracenteses, history of severe mitral regurgitation due to prolapse of the P2 segment, status post minimally invasive mitral valve repair with resection of the P2 leaflet and placement of Conklin mitral valve annuloplasty, patent foramen ovale, status post surgical closure at the time of the mitral valve repair, nonobstructive CAD with mild pulmonary hypertension, history of venous insufficiency, both lower extremities, history of chronic lymphedema, rheumatic fever as a child, type 2 diabetes, end-stage renal disease on hemodialysis, history of CVA, history of hypertension, hyperlipidemia, hypothyroidism, depression, pulmonary nodule, GERD, hernia, mild obstructive sleep apnea, osteoporosis, zinc deficiency, osteoarthritis of multiple joints, diabetic polyneuropathy, iron deficiency anemia. Patient lives with her . Walks with help of walker and also uses cane, was brought in by daughter because of abdominal discomfort, poor appetite and weakness. Patient was started on Remeron about a month ago since then as per daughter, she is sleeping okay, but she is having poor appetite. She is only drinking protein shakes twice a day and eating cereals, but not eating much solid food and also patient was complaining of abdominal pain, on and off, about 8/10 in severity. She states the pain is more when she eats. Denies any diarrhea or constipation. Somewhat nauseous and the abdominal pain is going on for the last couple of weeks. When she is drinking, she is swallowing okay. Has some headache, no blurred visions, no earache, no sore throat, no cough, no fever, no chills, no chest pain. She feels short of breath when lying flat, swelling of the legs is better. Makes little urine. Currently, resting comfortable and hemodynamically stable. ALLERGIES: No known drug allergies. PAST MEDICAL HISTORY: As mentioned above. PAST SURGICAL HISTORY: Status post hysterectomy, status post cholecystectomy, bilateral cataract surgery, status post stone removal from biliary tract, left heart catheterization, colonoscopies, EGDs, dental surgery, replaced her mitral valve with bypass. MEDICATIONS: Currently patient is on Tylenol 500 mg p.o. q.6h. p.r.n., albuterol 2 puffs inhalation q.i.d. p.r.n., Abilify 2 mg p.o. daily, calcium acetate 667 mg p.o. t.i.d. with meals, vitamin D 125 mcg p.o. a.m., Plavix 75 mg p.o. a.m., Colace 100 mg p.o. q.a.m., Fluoxetine 30 mg p.o. a.m., Lantus 10 units subcutaneous q.a.m., levothyroxine 200 mcg p.o. daily, loratadine 10 mg p.o. a.m., metoprolol succinate 100 mg p.o. b.i.d., Remeron 15 mg at bedtime, Renal Caps 1 capsule p.o. at bedtime, semaglutide 1 mg subcutaneous weekly, tramadol 50 mg at bedtime p.r.n., zinc sulfate 220 mg p.o. at bedtime. FAMILY HISTORY: Significant for son with cancer; maternal aunt heart disorder. SOCIAL HISTORY: , lives with . No smoking, no alcohol, no drug use. REVIEW OF SYSTEMS: As per HPI. Rest of review of systems is negative. PHYSICAL EXAMINATION: GENERAL: The patient is old and frail, not in acute distress. VITAL SIGNS: Temperature 36.6, pulse 90, respiratory rate 20, blood pressure 112/89, oxygen 100% on room air. HEENT: Pupils equal, round and reactive to light. Oral mucosa moist. NECK: No neck masses. CARDIOVASCULAR: S1 and S2 heard. Regular rate and rhythm. No murmur, no gallop. RESPIRATORY SYSTEM: Normal AP diameter. No accessory muscle use. No wheeze, no crackles. ABDOMEN: Soft, bowel sounds present, nontender, no distention, no guarding, no rigidity. NEUROLOGIC: Cranial nerves II-XII grossly nonfocal. EXTREMITIES: Chronic skin changes seen. Mild edema, no erythema seen. LABORATORY DATA: WBC 5.9, hemoglobin 11.3, hematocrit 36.7, platelets 149. Sodium 136, potassium 3.5, chloride 100, bicarbonate 30, BUN 36, creatinine 2.8, serum glucose 121. Lactate 1.4, calcium 8.4, phosphorus 2.9, magnesium 2.7, total bilirubin 0.5, AST 74, ALT 181, alkaline phosphatase 126, total procalcitonin 0.06. TSH is 1.2, free T4 0.9. SARS-CoV-2 PCR negative. Chest x-ray: Cardiomegaly and improving pulmonary vascular congestion, persistent, but improving bibasilar airspace opacities. CT abdomen and pelvis preliminary report shows diffuse pneumatosis involving the upper descending colon, hepatic flexure with mild focal pneumoperitoneum compatible with bowel wall ischemia and necrosis. No evidence for obstruction. EKG: AFib with rapid ventricular response at a rate of 113, some ST depression in lateral leads. ASSESSMENT AND PLAN: This is an 85-year-old female presents with ongoing weakness and abdominal pain. 1. Abdominal pain. The patient states the pain is more when she is eating. CAT scan showed questionable pneumoperitoneum and ischemic bowel but Physical exam and lactic acid is okay. ER physician already talked to her about surgery, started on IV Zosyn and surgery to evaluate her in the morning. We will keep her n.p.o. We will closely monitor. 2. Weakness, poor appetite. As per the daughter since she was started on Remeron about a month ago, she is sleeping well, but she is not eating anything only drinking protein shakes twice daily and some cereal, possible failure to thrive. We will hold the Remeron, Acn consider Marinol and Megace.Can check for SMA stenosis. We will monitor. 3. History of atrial fibrillation on Toprol-XL, which we will continue. Not on Coumadin because risk is more than benefit at this stage. 4. End-stage renal disease, on hemodialysis. Consult Nephrology. 5. History of hypothyroidism. Continue Synthroid. 6. Diabetes. Currently, patient is n.p.o., we will hold Lantus. Place on insulin sliding scale. Follow the blood sugars. 7. History of depression, continue fluoxetine, holding Remeron, monitor. 8. History of diastolic congestive heart failure. Volume status was monitored by dialysis. 9. History of recurrent pleural effusions requiring multiple thoracenteses. 10. History of severe mitral regurgitation, status post mitral valve repair. 11. Patent foramen ovale, status post surgical closure. 12. History of hypertension. Continue home medications of Toprol-XL. Monitor the blood pressure. 13. History of mild nonobstructive coronary artery disease on beta opal and Plavix. 14. Anemia of chronic kidney disease. Hemoglobin stable at 11.3. We will follow the labs. 15. History of cerebrovascular accident, on aspirin and Plavix. 16. History of deep venous thrombosis prophylaxis, placed on SCDs for now. If no plans for any procedure can place on heparin subQ. DISPOSITION: Monitor in the med tele. PT, OT prior to discharge. Social service to help with discharge planning. Level 1 full code only if the chance of recovery as per discussion with the patient and daughter. Job ID: [id number] [facility]
[2020-11-26] MEDS: PIPERACILLIN/TAZOBACTAM 3.375 GM in DEXTROSE 5% 100 ML IV SCH (12:09)
[2020-11-26] MEDS ORDERED: SODIUM CHLORIDE 0.9% 1000ML 1,000 ML IV PRN (12:31)
[2020-11-26] MEDS ORDERED: HEPARIN SOD (PORCINE) 1000 UNIT/ML IV SCH (13:00)
[2020-11-26] MEDS: NEPHROCAPS PO SCH (22:10)
[2020-11-26] MEDS: ZINC SULFATE 220 MG CAPSULE PO SCH (22:10)
[2020-11-27] MEDS: PIPERACILLIN/TAZOBACTAM 3.375 GM in DEXTROSE 5% 100 ML IV SCH ×2 (00:35→12:10)
[2020-11-27] MEDS: LEVOTHYROXINE SODIUM 200 MCG TABLET PO SCH (06:37)
[2020-11-27 07:52] LABS: Albumin Level 3.1 gm/dl (3.4-5.0); Bilirubin Direct 0.3 mg/dl (0-0.2); Bilirubin,Total 0.5 mg/dl (0.2-1); Total Protein 6.6 gm/dl (6.4-8.2)
[2020-11-27] MEDS: INSULIN ASPART 100 UNITS/ML 3 ML PEN SC SCH ×4 (08:48→21:29)
[2020-11-27] MEDS: METOPROLOL SUCC 50MG EXT REL TAB PO SCH ×2 (08:49→20:20)
[2020-11-27] MEDS: ARIPIprazole 1 MG/ML ORAL SOLN 150 ML BTL PO SCH (08:49)
[2020-11-27] MEDS: FLUoxetine HCL 10 MG CAP PO SCH (08:49)
[2020-11-27] MEDS: LORATADINE 10 MG TAB PO SCH (08:49)
[2020-11-27] MEDS: CHOLECALCIFEROL 1,000 UNITS 25 MCG TAB PO SCH (08:49)
[2020-11-27] MEDS: CALCIUM ACETATE 667 MG CAP/TAB PO SCH ×3 (08:49→16:28)
[2020-11-27] MEDS: CLOPIDOGREL BISULFATE 75 MG TAB PO SCH (08:49)
[2020-11-27] MEDS: FLUoxetine HCL 20 MG CAP PO SCH (08:49)
[2020-11-27] MEDS: ONDANSETRON INJ 2 MG/ML 2 ML VIAL IV PRN (09:06)
--- NOTE | 2020-11-27 11:49 | Nephrology Progress Note ---
Date of Service November 27, 2020 Assessment & Plan (1) ESRD (end stage renal disease): She is Saturday dialysis patient at [facility] Last dialyzed on Dialysed on 11/26 ,as per outpatient prescription, no UF. Next HD on Tuesday 11/28. Please continue all her outpatient medications (2) Pneumatosis intestinalis: As per primary/surgery - for conservative managenent Admission and Anticipated Discharge Date Admission Date: November 26, 2020 Subjective c/o abdominl pain, nausea and vomiting Review of Systems Review of Systems: Very Cachectic, dry , but comfortable with no shortness of breath Physical Exam Physical Exam: Ill appearing , cachetic,Comfortable,No shortness of breath, awake, alert. Chest-normal respiratory effort, CVS-RRR, no murmur, no edema Rate/Rhythm: regular rate and regular rhythm Abdomen-normal bowel sounds, soft, nontender, no hepatosplenomegaly, BS + Extremities-No edema no cyanosis or clubbing, extremities motor strength normal no rashes, warm and dry Results & Data ([facility]) Vital Signs (Past 12 Hours) Vital Signs Temp Pulse Resp BP Pulse Ox 11/27/20 11:30 36.4 C L 118 H 18 98/64 L 98 11/27/20 07:35 36.7 C 98 H 18 117/80 98 11/27/20 02:52 36.7 C 99 H 20 124/78 98
--- NOTE | 2020-11-27 12:09 | Surgery Progress Note ---
Date of Service tolerated clear diet, no abdominal pain, some nausea, no vomiting, no fever, BM X 1 November 27, 2020 Assessment & Plan (1) Pneumatosis intestinalis: pt is a 85 year-old female who presents to ER with weakness, CT scan finding- Pneumatosis intestinalis with small droplets of air within the mesentery. IMP: Pneumatosis intestinalis, lactic acid 1.6. no surgical indication now, I agree with conservative treatment now, IV fluid, IV antibiotic, clear diet, repeat labs in morning, pt may need IV contrast CT scan abd + pelvis if pt develops abdominal pain, pain, will F/U, 11/27/2020 12:10PM doing fine, no abdominal pain, tolerated clear diet, no surgery indication now, keep clear diet now, will F/U, Admission and Anticipated Discharge Date Admission Date: November 26, 2020 Subjective c/o abdominl pain, nausea and vomiting Physical Exam Constitutional: WD/WN, vitals as above well developed and well nourished Eyes: PERRL, conjunctivae normal, anicteric sclerae ENMT: external ear and nose normal, oropharynx normal Neck: trachea midline, no thyromegaly Respiratory: normal respiratory effort, lungs clear to auscultation normal respiratory effort Cardiovascular: RRR, no murmur, no edema Rate/Rhythm: regular rate and regular rhythm Gastrointestinal (Abdomen): normal bowel sounds, soft, nontender, no hepatosplenomegaly Percussion/Palpation: abdomen soft NT, ND BS +, Musculoskeletal: no cyanosis or clubbing, extremities motor strength 5/5 Skin: no rashes, warm and dry Neurologic: awake Psychiatric: Orientation: alert and oriented x 3 Results & Data ([facility]) Vital Signs (Past 12 Hours) Vital Signs Temp Pulse Resp BP Pulse Ox 11/27/20 11:30 36.4 C L 118 H 18 98/64 L 98 11/27/20 07:35 36.7 C 98 H 18 117/80 98 11/27/20 02:52 36.7 C 99 H 20 124/78 98 Laboratory Results Abnormal lab results 11/26/20 11/27/20 11/27/20 Range/Units 20:15 07:07 07:31 POC Glucose 154 H 118 H (70-99) mg/dl Direct Bilirubin 0.3 H (0-0.2) mg/dl AST 100 H (15-37) U/L ALT 200 H (12-78) U/L Albumin 3.1 L (3.4-5.0) gm/dl 11/27/20 Range/Units 11:36 POC Glucose 130 H (70-99) mg/dl Direct Bilirubin (0-0.2) mg/dl AST (15-37) U/L ALT (12-78) U/L Albumin (3.4-5.0) gm/dl
--- NOTE | 2020-11-27 13:25 | Hospitalist Progress Note ---
Date of Service November 27, 2020 Assessment & Plan (1) Abdominal pain: Seems to be chronic in nature and does not happen to be after food but the patient cannot definitely define CT scan of the abdomen and pelvis showed pneumatosis intestinalis and persistent marked dilatation of the pancreatic duct Can have chronic pancreatitis Has been tolerating diet without any significant pain after food Abdominal pain seems to be gone (2) Pneumatosis intestinalis: CT of abdomen showed pneumatosis intestinalis with a small droplets of air within the mesentery Appreciate surgery input and recommendation Could be secondary to intestinal ischemia She has been tolerating diet reasonably without any pain If she develops pain with food need to get a CT scan of the abdomen pelvis with contrast to rule out any mesenteric arterial occlusion (3) Abnormal LFTs: Very abnormal LFTs with AST [address] scan did not show any hepatic lesion Will check hepatitis profile Doubt any obstruction given alkaline phos is normal Abnormal LFTs could be secondary to use of Remeron-which has been on hold We will check LFTs (4) Generalized weakness: Very thinly built Poor appetite Has not been eating and drinking enough to maintain appropriate nutrition We will get dietitian consult (5) Poor appetite: (6) End-stage renal disease on hemodialysis: Has been on hemodialysis and will continue (7) Atrial fibrillation: Has A. fib with RVR Not been taking any anticoagulation due to risk of fall and bleeding We will continue current medications (8) Diabetes mellitus, type II: SSI Admission and Anticipated Discharge Date Admission Date: November 26, 2020 Subjective 11/27/2020 The patient was seen and examined in medical telemetry unit She has been complaining of nausea without any vomiting and the abdominal pain is almost gone Remains generally weak and lethargic Has been feeling much better overall Review of Systems Review of Systems: All systems reviewed and are unremarkable as noted below Gastrointestinal: + nausea; no abdominal pain and no bloating Neurologic: + generalized weakness Physical Exam Physical Exam: Sitting on a chair without any acute distress Constitutional: + ill appearing and + thin Eyes: PERRL, conjunctivae normal, anicteric sclerae ENMT: external ear and nose normal, oropharynx normal Neck: trachea midline, no thyromegaly Respiratory: no respiratory distress Auscultation: + diminished lung sounds and + crackles (Minimal crackles at the bases) Cardiovascular: Rate/Rhythm: + irregularly irregular Heart Sounds: + murmur (2/6 ESM over precordium) Gastrointestinal (Abdomen): Inspection/Auscultation: normal bowel sounds; abdomen not distended Percussion/Palpation: abdomen soft; abdomen nontender Musculoskeletal: No acute arthritis in any joint Neurologic: Alert, awake and oriented x3. Generally weak Lymphatic: no cervical or axillary lymphadenopathy Results & Data Results & Data ([facility]) Vital Signs (Past 12 Hours) Vital Signs Temp Pulse Resp BP Pulse Ox 11/27/20 11:30 36.4 C L 118 H 18 98/64 L 98 11/27/20 07:35 36.7 C 98 H 18 117/80 98 11/27/20 02:52 36.7 C 99 H 20 124/78 98 Laboratory Results Liver Function 11/27/20 Range/Units 07:07 Total Bilirubin 0.5 (0.2-1) mg/dl Direct Bilirubin 0.3 H (0-0.2) mg/dl AST 100 H (15-37) U/L ALT 200 H (12-78) U/L Alkaline Phosphatase 84 (45-117) U/L Albumin 3.1 L (3.4-5.0) gm/dl Medications Administered Current Inpatient Medications Acetaminophen (Acetaminophen 325 Mg Tab) 650 mg PO Q4H PRN PRN Reason: Pain or Fever Stop: 12/26/20 07:24 Albuterol (Albuterol Hfa 8 Gm Inhaler) 2 puffs INH QID PRN PRN Reason: Wheezing Stop: 12/26/20 07:24 Aripiprazole (Aripiprazole 1 Mg/Ml Oral Soln 150 Ml Btl) 2 mg PO QAM LUZMARIA Stop: 12/26/20 08:59 Last Admin: 11/27/20 08:49 Dose: 2 mg Documented by: Calcium Acetate (Calcium Acetate 667 Mg Cap/Tab) 667 mg PO TIDM LUZMARIA Stop: 12/26/20 07:59 Last Admin: 11/27/20 12:13 Dose: 667 mg Documented by: Clopidogrel Bisulfate (Clopidogrel Bisulfate 75 Mg Tab) 75 mg PO QAM LUZMARIA Stop: 12/26/20 08:59 Last Admin: 11/27/20 08:49 Dose: 75 mg Documented by: Docusate Sodium (Docusate Sodium 100 Mg Cap) 100 mg PO QAM PRN PRN Reason: Constipation Stop: 12/26/20 07:24 Last Admin: 11/26/20 08:23 Dose: 100 mg Documented by: Fluoxetine HCl (Fluoxetine Hcl 20 Mg Cap) [facility] [place]: 12/26/20 08:59 Last Admin: 11/27/20 08:49 Dose: 20 mg Documented by: Fluoxetine HCl (Fluoxetine Hcl 10 Mg Cap) 10 mg PO QAM [facility] Stop: 12/26/20 08:59 Last Admin: 11/27/20 08:49 Dose: 10 mg Documented by: Piperacillin Sod/Tazobactam (Sod 3.375 gm/ Dextrose) 115 mls @ 28.75 mls/hr IV Q12H [facility]; Protocol Stop: 12/06/20 12:59 Last Admin: 11/27/20 12:10 Dose: 28.8 mls/hr Documented by: Insulin Aspart (Insulin Aspart 100 Units/Ml 3 Ml Pen) 0 units SC ACHS [facility] Stop: 12/26/20 07:29 Last Admin: 11/27/20 12:07 Dose: Not Given Documented by: Levothyroxine Sodium (Levothyroxine Sodium 200 Mcg Tablet) [facility] Stop: 12/26/20 07:59 Last Admin: 11/27/20 06:37 Dose: 200 mcg Documented by: Loratadine (Loratadine 10 Mg Tab) 10 mg PO [facility] Stop: 12/26/20 08:59 Last Admin: 11/27/20 08:49 Dose: 10 mg Documented by: Metoprolol Succinate (Metoprolol Succ 50mg Ext Rel Tab) 100 mg PO BID [facility] Stop: 12/26/20 08:59 Last Admin: 11/27/20 08:49 Dose: 100 mg Documented by: Miscellaneous Information (Piperacill/Tazobac Consult Active) 1 ea N/A UD PRN PRN Reason: Consult Stop: 12/26/20 04:04 Nitroglycerin (Nitroglycerin Sl 0.4 Mg/Tab Tab) 0.4 mg SL UD PRN PRN Reason: Chest Pain Stop: 12/26/20 07:24 Ondansetron HCl (Ondansetron Inj 2 Mg/Ml 2 Ml Vial) 4 mg IV Q6H PRN PRN Reason: Nausea Stop: 12/26/20 07:24 Last Admin: 11/27/20 09:06 Dose: 4 mg Documented by: Tramadol HCl (Tramadol Hcl 50 Mg Tablet) 50 mg PO HS PRN PRN Reason: leg pain Stop: 12/26/20 07:24 Vitamin B Complex/Folic Acid (Nephrocaps) 1 cap PO HS [facility] Stop: 12/26/20 20:59 Last Admin: 11/26/20 22:10 Dose: 1 cap Documented by: Vitamin D (Cholecalciferol 1,000 Units 25 Mcg Tab) 5,000 units PO [facility] Stop: 12/26/20 08:59 Last Admin: 11/27/20 08:49 Dose: 5,000 units Documented by: Zinc Sulfate (Zinc Sulfate 220 Mg Capsule) 220 mg PO [facility] Stop: 12/26/20 20:59 Last Admin: 11/26/20 22:10 Dose: 220 mg Documented by: (1) Diabetes mellitus, type II Chronic kidney disease stage: stage 3 (moderate) Diabetes mellitus complication detail: with chronic kidney disease Diabetes mellitus complication status: with kidney complications Diabetes mellitus senior care insulin use: unspecified it technician insulin use status Qualified Code(s): E11.22 - Type 2 diabetes mellitus with diabetic chronic kidney disease; N18.3 - Chronic kidney disease, stage 3 (moderate)
[2020-11-27] MEDS: NEPHROCAPS PO SCH (20:20)
[2020-11-27] MEDS: ZINC SULFATE 220 MG CAPSULE PO SCH (20:20)
[2020-11-28] MEDS: PIPERACILLIN/TAZOBACTAM 3.375 GM in DEXTROSE 5% 100 ML IV SCH ×2 (00:36→12:15)
[2020-11-28] MEDS: LEVOTHYROXINE SODIUM 200 MCG TABLET PO SCH (06:02)
[2020-11-28] MEDS: CLOPIDOGREL BISULFATE 75 MG TAB PO SCH (08:04)
[2020-11-28] MEDS: ARIPIprazole 1 MG/ML ORAL SOLN 150 ML BTL PO SCH (08:04)
[2020-11-28] MEDS: FLUoxetine HCL 10 MG CAP PO SCH (08:04)
[2020-11-28] MEDS: FLUoxetine HCL 20 MG CAP PO SCH (08:04)
[2020-11-28] MEDS: CHOLECALCIFEROL 1,000 UNITS 25 MCG TAB PO SCH (08:04)
[2020-11-28] MEDS: LORATADINE 10 MG TAB PO SCH (08:04)
[2020-11-28] MEDS: CALCIUM ACETATE 667 MG CAP/TAB PO SCH ×3 (08:04→18:13)
[2020-11-28] MEDS: METOPROLOL SUCC 50MG EXT REL TAB PO SCH ×2 (08:04→20:20)
[2020-11-28] MEDS: INSULIN ASPART 100 UNITS/ML 3 ML PEN SC SCH ×4 (09:18→20:47)
[2020-11-28 09:32] LABS: BUN Creatinine Ratio 8.5 (10-20); Calcium 7.9 mg/dl (8.5-10.1); Est GFR (African American) 16.4 ml/min; Est GFR (Non-African American) 14.1 ml/min
[2020-11-28 09:34] LABS: Albumin Globulin Ratio 0.8 (0.9-2); Bilirubin,Total 0.5 mg/dl (0.2-1); Globulin 3.6 gm/dl (2.5-4.0); Total Protein 6.6 gm/dl (6.4-8.2)
[2020-11-28 10:21] LABS: Hepatitis B Surf Ag Rflx Conf Neg (Neg)
--- NOTE | 2020-11-28 10:23 | Surgery Progress Note ---
Date of Service pt is still have some nausea, no abdominal pain, passed BM X 2, no bloody stool, no fever, November 28, 2020 Assessment & Plan (1) Pneumatosis intestinalis: pt is a 85 year-old female who presents to ER with weakness, CT scan finding- Pneumatosis intestinalis with small droplets of air within the mesentery. IMP: Pneumatosis intestinalis, lactic acid 1.6. no surgical indication now, I agree with conservative treatment now, IV fluid, IV antibiotic, clear diet, repeat labs in morning, pt may need IV contrast CT scan abd + pelvis if pt develops abdominal pain, pain, will F/U, 11/27/2020 12:10PM doing fine, no abdominal pain, tolerated clear diet, no surgery indication now, keep clear diet now, will F/U, 11/28/2020 10:21AM stable, try full liquid diet today, may consult GI doctor To R/O DM complication with stomach, no surgery indication now, sign off today, please call with questions, thanks, Admission and Anticipated Discharge Date Admission Date: November 26, 2020 Subjective 11/27/2020 The patient was seen and examined in medical telemetry unit She has been complaining of nausea without any vomiting and the abdominal pain is almost gone Remains generally weak and lethargic Has been feeling much better overall Physical Exam Constitutional: WD/WN, vitals as above well developed and well nourished Eyes: PERRL, conjunctivae normal, anicteric sclerae ENMT: external ear and nose normal, oropharynx normal Neck: trachea midline, no thyromegaly Respiratory: normal respiratory effort, lungs clear to auscultation normal respiratory effort Cardiovascular: RRR, no murmur, no edema Rate/Rhythm: regular rate and regular rhythm Gastrointestinal (Abdomen): normal bowel sounds, soft, nontender, no hepatosplenomegaly Percussion/Palpation: abdomen soft soft, NT, ND, BS + Musculoskeletal: no cyanosis or clubbing, extremities motor strength 5/5 Skin: no rashes, warm and dry Neurologic: awake Psychiatric: Orientation: alert and oriented x 3 Results & Data ([facility]) Vital Signs (Past 12 Hours) Vital Signs Temp Pulse Pulse Resp BP Pulse Ox 11/28/20 08:03 124 H 109/69 11/28/20 07:12 36.6 C 113 H 17 106/67 97 11/28/20 07:00 114 H 11/28/20 02:59 36.4 C L 107 H 14 114/69 98 11/28/20 00:40 108 H 11/27/20 23:39 36.3 C L 108 H 16 96/67 L 96 Laboratory Results Abnormal lab results 11/27/20 11/27/20 11/27/20 Range/Units 11:36 13:58 16:44 BUN (7-18) mg/dl Creatinine (0.6-1.2) mg/dl BUN/Creatinine Ratio (10-20) Glucose (70-99) mg/dl POC Glucose 130 H 139 H (70-99) mg/dl Calcium (8.5-10.1) mg/dl AST (15-37) U/L ALT (12-78) U/L Albumin (3.4-5.0) gm/dl Albumin/Globulin Ratio (0.9-2) Lipase 28 L (73-393) U/L 11/28/20 11/28/20 Range/Units 07:41 08:20 BUN 25 H (7-18) mg/dl Creatinine 2.94 H (0.6-1.2) mg/dl BUN/Creatinine Ratio 8.5 L (10-20) Glucose 112 H (70-99) mg/dl POC Glucose 110 H (70-99) mg/dl Calcium 7.9 L (8.5-10.1) mg/dl AST 81 H (15-37) U/L ALT 178 H (12-78) U/L Albumin 3.0 L (3.4-5.0) gm/dl Albumin/Globulin Ratio 0.8 L (0.9-2) Lipase (73-393) U/L
[2020-11-28 10:50] LABS: Hepatitis C IgG 13Yrs+Old_Rflx Neg (Neg)
[2020-11-28] MEDS: ONDANSETRON INJ 2 MG/ML 2 ML VIAL IV PRN (12:30)
--- NOTE | 2020-11-28 12:58 | Electrocardiogram Report ---
Test Reason : Blood Pressure : / mmHG Vent. Rate : 113 BPM Atrial Rate : 060 BPM P-R Int : 000 ms QRS Dur : 086 ms QT Int : 364 ms P-R-T Axes : 000 030 158 degrees QTc Int : 499 ms Poor data quality, interpretation may be adversely affected Atrial fibrillation with rapid ventricular response Nonspecific ST and T wave abnormality Abnormal ECG When compared with ECG of 18-MAY-2020 12:06, Atrial fibrillation has replaced Sinus rhythm Vent. rate has increased BY [address] now depressed in Lateral leads T wave inversion now evident in Lateral leads Confirmed by Mannie Shelton ([id number]) on 11/28/2020 12:58:21 PM Referred By: REFERRED SELF Confirmed By:Mannie Shelton
--- NOTE | 2020-11-28 14:19 | Hospitalist Progress Note ---
Date of Service November 28, 2020 Assessment & Plan (1) Abdominal pain: Seems to be chronic in nature and does not happen to be after food but the patient cannot definitely define CT scan of the abdomen and pelvis showed pneumatosis intestinalis and persistent marked dilatation of the pancreatic duct Can have chronic pancreatitis Has been tolerating diet without any significant pain after food Abdominal pain seems to be gone No recurrence of the abdominal pain with initiation of diet If she develops pain in the abdomen with advance diet she will need to have imaging studies with contrast to rule out any mesenteric vascular thrombosis Has had issue with swallowing as per the nurse Appreciate speech therapy evaluation Does not have any problem with swallowing but she does not want to try at times secondary to nausea which could be due to gastroparesis from diabetes Advance diet advised (2) Pneumatosis intestinalis: CT of abdomen showed pneumatosis intestinalis with a small droplets of air within the mesentery Appreciate surgery input and recommendation Could be secondary to intestinal ischemia She has been tolerating diet reasonably without any pain If she develops pain with food need to get a CT scan of the abdomen pelvis with contrast to rule out any mesenteric arterial thrombosis Surgery signed off (3) Abnormal LFTs: Very abnormal LFTs with AST [address] scan did not show any hepatic lesion Will check hepatitis panel remain unremarkable Doubt any obstruction given alkaline phos is normal Abnormal LFTs could be secondary to use of Remeron-which has been on hold We will check LFTs-have been improving (4) Generalized weakness: Very thinly built Poor appetite Has not been eating and drinking enough to maintain appropriate nutrition We will get dietitian consult PT and OT evaluation (5) Poor appetite: (6) End-stage renal disease on hemodialysis: Has been on hemodialysis and will continue (7) Atrial fibrillation: Has A. fib with RVR Not been taking any anticoagulation due to risk of fall and bleeding We will continue current medications (8) Diabetes mellitus, type II: SSI Admission and Anticipated Discharge Date Admission Date: November 26, 2020 Subjective 11/27/2020 The patient was seen and examined in medical telemetry unit She has been complaining of nausea without any vomiting and the abdominal pain is almost gone Remains generally weak and lethargic Has been feeling much better overall 11/28/2020 The patient was seen and examined in medical telemetry unit She complains to have some nausea but denies any abdominal pain She has had issues with swallowing of pills yesterday and this morning Has had evaluation by the speech and advised to continue with soft diet Denies any fever and/or chills and feels a little better compared with admission Review of Systems Review of Systems: All systems reviewed and are unremarkable as noted below Gastrointestinal: + nausea; no abdominal pain and no bloating Neurologic: + generalized weakness Physical Exam Physical Exam: Sitting on a chair without any acute distress Constitutional: + ill appearing and + thin Eyes: PERRL, conjunctivae normal, anicteric sclerae ENMT: external ear and nose normal, oropharynx normal Neck: trachea midline, no thyromegaly Respiratory: no respiratory distress Auscultation: + diminished lung sounds and + crackles (Minimal crackles at the bases) Cardiovascular: Rate/Rhythm: + irregularly irregular Heart Sounds: + murmur (2/6 ESM over precordium) Gastrointestinal (Abdomen): Inspection/Auscultation: normal bowel sounds; abdomen not distended Percussion/Palpation: abdomen soft; abdomen nontender Musculoskeletal: No acute arthritis in any joint Neurologic: Alert, awake and oriented x3. Generally weak but no focal neuro deficit Lymphatic: no cervical or axillary lymphadenopathy Results & Data Results & Data ([facility]) Vital Signs (Past 12 Hours) Vital Signs Temp Pulse Pulse Resp BP Pulse Ox 11/28/20 10:58 36.2 C L 107 H 18 103/68 95 11/28/20 08:03 124 H 109/69 11/28/20 07:12 36.6 C 113 H 17 106/67 97 11/28/20 07:00 114 H 11/28/20 02:59 36.4 C L 107 H 14 114/69 98 Laboratory Results [facility] 11/28/20 08:20 Sodium 136 Potassium 4.0 Chloride 103 Carbon Dioxide 28 BUN 25 H Creatinine 2.94 H Glucose 112 H Calcium 7.9 L Liver Function 11/28/20 Range/Units 08:20 Total Bilirubin 0.5 (0.2-1) mg/dl AST 81 H (15-37) U/L ALT 178 H (12-78) U/L Alkaline Phosphatase 70 (45-117) U/L Albumin 3.0 L (3.4-5.0) gm/dl Medications Administered Current Inpatient Medications Acetaminophen (Acetaminophen 325 Mg Tab) 650 mg PO Q4H PRN PRN Reason: Pain or Fever Stop: 12/26/20 07:24 Albuterol (Albuterol Hfa 8 Gm Inhaler) 2 puffs INH QID PRN PRN Reason: Wheezing Stop: 12/26/20 07:24 Aripiprazole (Aripiprazole 1 Mg/Ml Oral Soln 150 Ml Btl) [facility] Stop: 12/26/20 08:59 Last Admin: 11/28/20 08:04 Dose: 2 mg Documented by: Calcium Acetate (Calcium Acetate 667 Mg Cap/Tab) 667 mg PO TIDM [facility] Stop: 12/26/20 07:59 Last Admin: 11/28/20 08:04 Dose: 667 mg Documented by: Clopidogrel Bisulfate (Clopidogrel Bisulfate 75 Mg Tab) [facility] [place] Stop: 12/26/20 08:59 Last Admin: 11/28/20 08:04 Dose: 75 mg Documented by: Docusate Sodium (Docusate Sodium 100 Mg Cap) 100 mg PO QAM PRN PRN Reason: Constipation Stop: 12/26/20 07:24 Last Admin: 11/26/20 08:23 Dose: 100 mg Documented by: Fluoxetine HCl (Fluoxetine Hcl 20 Mg Cap) [facility] [place] Stop: 12/26/20 08:59 Last Admin: 11/28/20 08:04 Dose: 20 mg Documented by: Fluoxetine HCl (Fluoxetine Hcl 10 Mg Cap) 10 [facility] [place] Stop: 12/26/20 08:59 Last Admin: 11/28/20 08:04 Dose: 10 mg Documented by: Piperacillin Sod/Tazobactam (Sod 3.375 gm/ Dextrose) 115 mls @ 28.75 mls/hr IV Q12H [facility]; Protocol Stop: 12/06/20 12:59 Last Admin: 11/28/20 12:15 Dose: 28.8 mls/hr Documented by: Insulin Aspart (Insulin Aspart 100 Units/Ml 3 Ml Pen) 0 units SC [facility] Stop: 12/26/20 07:29 Last Admin: 11/28/20 12:50 Dose: Not Given Documented by: Levothyroxine Sodium (Levothyroxine Sodium 200 Mcg Tablet) 200 mcg PO DAILYBB [facility] Stop: 12/26/20 07:59 Last Admin: 11/28/20 06:02 Dose: 200 mcg Documented by: Loratadine (Loratadine 10 Mg Tab) 10 mg PO QA [facility] Stop: 12/26/20 08:59 Last Admin: 11/28/20 08:04 Dose: 10 mg Documented by: Metoprolol Succinate (Metoprolol Succ 50mg Ext Rel Tab) 100 mg PO BID [facility] Stop: 12/26/20 08:59 Last Admin: 11/28/20 08:04 Dose: 100 mg Documented by: Miscellaneous Information (Piperacill/Tazobac Consult Active) 1 ea N/A UD PRN PRN Reason: Consult Stop: 12/26/20 04:04 Nitroglycerin (Nitroglycerin Sl 0.4 Mg/Tab Tab) 0.4 mg SL UD PRN PRN Reason: Chest Pain Stop: 12/26/20 07:24 Ondansetron HCl (Ondansetron Inj 2 Mg/Ml 2 Ml Vial) 4 mg IV Q6H PRN PRN Reason: Nausea Stop: 12/26/20 07:24 Last Admin: 11/28/20 12:30 Dose: 4 mg Documented by: Tramadol HCl (Tramadol Hcl 50 Mg Tablet) 50 mg PO HS PRN PRN Reason: leg pain Stop: 12/26/20 07:24 Vitamin B Complex/Folic Acid (Nephrocaps) 1 cap PO HS [facility] Stop: 12/26/20 20:59 Last Admin: 11/27/20 20:20 Dose: 1 cap Documented by: Vitamin D (Cholecalciferol 1,000 Units 25 Mcg Tab) 5,000 units PO QAM [facility] Stop: 12/26/20 08:59 Last Admin: 11/28/20 08:04 Dose: 5,000 units Documented by: Zinc Sulfate (Zinc Sulfate 220 Mg Capsule) 220 mg PO HS [facility] Stop: 12/26/20 20:59 Last Admin: 11/27/20 20:20 Dose: 220 mg Documented by: (1) Diabetes mellitus, type II Diabetes mellitus [employer] insulin use: unspecified [facility] insulin use status Diabetes mellitus complication status: with kidney complications Diabetes mellitus complication detail: with chronic kidney disease Chronic kidney disease stage: stage 3 (moderate) Qualified Code(s): E11.22 - Type 2 diabetes mellitus with diabetic chronic kidney disease; N18.3 - Chronic kidney disease, stage 3 (moderate)
[2020-11-28] MEDS: ZINC SULFATE 220 MG CAPSULE PO SCH (20:20)
[2020-11-28] MEDS: NEPHROCAPS PO SCH (20:20)
[2020-11-29] MEDS: PIPERACILLIN/TAZOBACTAM 3.375 GM in DEXTROSE 5% 100 ML IV SCH ×2 (00:55→14:13)
[2020-11-29 01:52] LABS: Hepatitis A Antibody IgM NON-REACTIVE (NON-REACTIVE); Hepatitis B Core Antibody IgM NON-REACTIVE (NON-REACTIVE)
[2020-11-29] MEDS: LEVOTHYROXINE SODIUM 200 MCG TABLET PO SCH (06:12)
[2020-11-29] MEDS ORDERED: SODIUM CHLORIDE 0.9% 1000ML 1,000 ML IV PRN (06:49)
[2020-11-29] MEDS ORDERED: HEPARIN SOD (PORCINE) 1000 UNIT/ML IV ONE (06:49)
[2020-11-29 08:09] LABS: Basophils # (auto) 0.02 K/uL (0-0.2); Basophils % (auto) 0.3 %; Eosinophils # (auto) 0.04 K/uL (0-0.5); Eosinophils % (auto) 0.6 %; Hematocrit (blood only) 37.9 % (37-47); Hemoglobin 11.4 g/dL (12.0-16.0); Immature Granulocytes # (auto) 0.03 K/uL (0.00-0.02); Immature Granulocytes % (auto) 0.5 %; Lymphocytes # (auto) 0.82 K/uL (1.2-3.4); Lymphocytes % (auto) 12.7 %; Mean Corpuscular Hemoglobin 30.8 pg (25-34); Mean Corpuscular Hgb Conc 30.1 g/dL (32-36); Mean Corpuscular Volume 102.4 fL (80-100); Mean Platelet Volume 10.4 fL (7.4-10.4); Monocytes # (auto) 0.43 K/uL (0.11-0.59); Monocytes % (auto) 6.6 %; Neutrophils # (auto) 5.13 K/uL (1.4-6.5); Neutrophils % (auto) 79.3 %; Platelet Count 145 K/uL (130-400); RDW Coefficient of Variation 16.4 % (11.5-14.5); White Blood Count 6.47 K/uL (4.8-10.8)
[2020-11-29 08:38] LABS: BUN Creatinine Ratio 8.1 (10-20); Calcium 8.2 mg/dl (8.5-10.1); Creatinine Clr Calc Pharmacy 9.6 ml/min; Est GFR (African American) 12.5 ml/min; Est GFR (Non-African American) 10.8 ml/min; Magnesium 2.5 mg/dl (1.8-2.4); Potassium 4.3 mmol/L (3.5-5.1)
[2020-11-29 08:42] LABS: Albumin Globulin Ratio 0.8 (0.9-2); Bilirubin,Total 0.4 mg/dl (0.2-1); Globulin 3.7 gm/dl (2.5-4.0); Phosphorus 4.3 mg/dl (2.5-4.9); Total Protein 6.7 gm/dl (6.4-8.2)
[2020-11-29] MEDS: FLUoxetine HCL 10 MG CAP PO SCH (09:24)
[2020-11-29] MEDS: FLUoxetine HCL 20 MG CAP PO SCH (09:24)
[2020-11-29] MEDS: CALCIUM ACETATE 667 MG CAP/TAB PO SCH ×3 (09:24→18:03)
[2020-11-29] MEDS: LORATADINE 10 MG TAB PO SCH (09:24)
[2020-11-29] MEDS: CLOPIDOGREL BISULFATE 75 MG TAB PO SCH (09:24)
[2020-11-29] MEDS: INSULIN ASPART 100 UNITS/ML 3 ML PEN SC SCH ×4 (09:25→20:53)
[2020-11-29] MEDS: METOPROLOL SUCC 50MG EXT REL TAB PO SCH ×2 (09:25→20:54)
[2020-11-29] MEDS: CHOLECALCIFEROL 1,000 UNITS 25 MCG TAB PO SCH (09:25)
[2020-11-29] MEDS: ARIPIprazole 1 MG/ML ORAL SOLN 150 ML BTL PO SCH (09:25)
--- NOTE | 2020-11-29 17:20 | Nephrology Progress Note ---
Date of Service November 29, 2020 Assessment & Plan (1) ESRD (end stage renal disease): She is Saturday dialysis patient at [facility] tolerated HD today w/ 1.5L UF today next HD for 12/01 or as clinical needs dictate; no anemia meds needed -recommend bmp daily; cbc could be q 48 hrs Please continue all her outpatient medications (2) Pneumatosis intestinalis: As per primary/surgery - for conservative managenent Admission and Anticipated Discharge Date Admission Date: November 26, 2020 Subjective seen on rounds this am at 0745; feels still weak and no appetite; no n/v; no sob; completed HD this afternoon w/ 1.5L UF Review of Systems Review of Systems: All systems reviewed & are unremarkable except as noted in Subjective Physical Exam Constitutional: well developed, + thin, + frail appearing and cooperative Eyes: EOM intact bilaterally ENMT: Ears: no external ear abnormality Nose: no external nose abnormality Mouth: + dry oral mucous membranes Neck: no nuchal rigidity Respiratory: normal respiratory effort Auscultation: + diminished lung sounds and + crackles (bibasilar) Cardiovascular: Rate/Rhythm: + tachycardic and + irregularly irregular Extremities: + edema (trace BLE) Gastrointestinal (Abdomen): Inspection/Auscultation: normal bowel sounds; abdomen not distended Percussion/Palpation: abdomen soft; abdomen nontender Musculoskeletal: Extremities: strength 5/5 throughout Skin: no rashes, warm and dry Neurologic: ochoa, fluent speech, no tremor Psychiatric: Orientation: alert and oriented x 3 Speech: normal rate/rhythm/volume of speech Affect: + flat affect Results & Data ([facility]) Vital Signs (Past 12 Hours) Vital Signs Temp Pulse Pulse Pulse Resp BP BP 11/29/20 12:50 36.5 C 88 105/71 11/29/20 12:40 109 H 76/53 L 11/29/20 12:20 124 H 93/69 L 11/29/20 12:00 90 80/51 L 11/29/20 11:40 104 H 86/63 L 11/29/20 11:20 84 85/68 L 11/29/20 11:00 72 103/63 11/29/20 10:40 106 H 93/67 L 11/29/20 10:20 116 H 110/75 11/29/20 10:00 119 H 117/65 11/29/20 09:40 36.5 C 113 H 90 11/29/20 07:12 36.3 C L 113 H 18 117/82 Pulse Ox 11/29/20 12:50 11/29/20 12:40 11/29/20 12:20 11/29/20 12:00 11/29/20 11:40 11/29/20 11:20 11/29/20 11:00 11/29/20 10:40 11/29/20 10:20 11/29/20 10:00 11/29/20 09:40 11/29/20 07:12 98 Laboratory Results 11/29/20 07:46 11/29/20 07:46
[2020-11-29] MEDS: HEPARIN SOD (PORCINE) 1000 UNIT/ML IV SCH (19:01)
[2020-11-29] MEDS: metroNIDAZOLE 500 MG TAB PO SCH (20:54)
[2020-11-29] MEDS: NEPHROCAPS PO SCH (20:54)
[2020-11-29] MEDS: ZINC SULFATE 220 MG CAPSULE PO SCH (20:55)
[2020-11-29] MEDS ORDERED: metroNIDAZOLE 500 MG TAB PO SCH (22:00)
[2020-11-30] MEDS: LEVOTHYROXINE SODIUM 200 MCG TABLET PO SCH (06:06)
[2020-11-30] MEDS: metroNIDAZOLE 500 MG TAB PO SCH (08:34)
[2020-11-30] MEDS: FLUoxetine HCL 20 MG CAP PO SCH (08:34)
[2020-11-30] MEDS: CHOLECALCIFEROL 1,000 UNITS 25 MCG TAB PO SCH (08:35)
[2020-11-30] MEDS: CALCIUM ACETATE 667 MG CAP/TAB PO SCH ×3 (08:35→17:24)
[2020-11-30] MEDS: CLOPIDOGREL BISULFATE 75 MG TAB PO SCH (08:35)
[2020-11-30] MEDS: LORATADINE 10 MG TAB PO SCH (08:35)
[2020-11-30] MEDS: METOPROLOL SUCC 50MG EXT REL TAB PO SCH ×2 (08:36→20:47)
[2020-11-30] MEDS: ARIPIprazole 1 MG/ML ORAL SOLN 150 ML BTL PO SCH (08:36)
[2020-11-30] MEDS: FLUoxetine HCL 10 MG CAP PO SCH (08:36)
[2020-11-30] MEDS: INSULIN ASPART 100 UNITS/ML 3 ML PEN SC SCH ×4 (08:38→20:46)
--- NOTE | 2020-11-30 10:20 | Hospitalist Progress Note ---
Date of Service November 30, 2020 Assessment & Plan (1) Abdominal pain: Abdominal pain is after food intake and is described as acute for the past 3-4 weeks. Timing went along with initiation of Remeron which has been stopped. Significant weight loss is present and patient has well-known depression underlying. CT performed on admission but without contrast-reveals PI. No convincing evidence for acute bowel ischemia. Empiric Zosyn and flagyl were started but are being stopped in the absence of infection. Patient still eating about the same as admission without any real changes. She is also orthostatic today. LFTs were up and have trended down-possible drug reaction from remeron? GI requested to see her. (2) Pneumatosis intestinalis: Pain with food has been present, and per Gen Surgery recommendations a CT a/p with IV contrast may help to rule out mesenteric ischemia. She has no current pain, no change in bowels. Will await GI thoughts and continue to monitor her clinical picture. (3) Abnormal LFTs: possibly secondary to medications. Trending down. Repeat today. (4) Atrial fibrillation: Has A. fib with RVR this morning and tachycardia is common for her. Not been taking any anticoagulation due to risk of fall and bleeding We will continue current medications Tachycardia this morning has improved with metoprolol, still borderline hy potensive. This is a very medically complex dialysis patient. Will ask cardiology to see her to help optimize her hemodynamics in setting of atrial fibrillation. (5) Orthostatic hypotension: small 500cc bolus, trend orthostatic vitals q8h (6) Severe protein-calorie malnutrition: Significant weight loss, likely multifactorial etiology including multiple comorbidities, severe depression and poor PO intake in recent months. Remeron has been stopped. Still uncertain etiology of recent abdominal pain prompting admission. Failure to thrive picture. (7) Generalized weakness: Poor PO intake, PT/OT evaluation (8) End-stage renal disease on hemodialysis: Has been on hemodialysis and will continue (9) Diabetes mellitus, type II: SSI, minimal insulin required. (10) DVT prophylaxis: start heparin for DVT prevention Full Code Dispo-uncertain at this time. Cont telemetry monitoring. [facility] Admission and Anticipated Discharge Date Admission Date: November 26, 2020 Subjective 85 yo F presented with food aversion and decreased appetite. Reports to me today that she has lost 100 lbs over the past 2 years, and that for months she has had decreased PO intake, reporting epigastric/centralized pain for 30 mins after eating for the past 3 weeks. Per notes, she had been started on Remeron 1 month ago for poor appetite. CT a/p without contrast was performed on admission (11/26). Pneumatosis intestinalis was noted in the mesentery around the hepatic flexure. Surgery saw her and signed off as patient was reporting to be tolerating her diet with some improvement in pain. She was placed on Zosyn from 11/26 to 11/29 and continues on Flagyl monotherapy today. She is tachycardic with a HR 130, hypotensive (92/59) with afib w RVR. She denies chest pain, SOB, palpitations, fevers, chills, ongoing abdominal pain. She is lightheaded when transferring from the chair to the bed. She reports no real changes WRT food aversion. She has reported depression and is taking fluoxetine, aripiprazole and was taking remeron which has now been stopped during this hospital stay. Review of Systems Review of Systems: All systems reviewed & are unremarkable except as noted in Subjective Physical Exam Physical Exam: CONSTITUTIONAL: WNWD, vitals as above, generally cachectic EYES: normal conjunctivae, no scleral icterus ENT: external ear and nose normal, mucous membranes are dry NECK: trachea midline RESPIRATORY: clear to auscultation bilaterally, no crackles, rales or wheezes, normal respiratory effort CARDIOVASCULAR: tachy rate and irregular rhythm, S1 and 2 heard without murmurs, gallops or rubs, no JVD, no peripheral edema GASTROINTESTINAL: soft, nontender, nondistended, no guarding MUSCULOSKELETAL: generalized weakness, head is normocephalic and atraumatic SKIN: warm and dry NEUROLOGIC: CN 2-12 grossly intact, no sensory deficit, normal cognition, normal speech with some purposefulness when forming her words PSYCHIATRIC: alert cooperative and oriented to person, place and time. Results & Data Results & Data ([facility]) Vital Signs (Past 12 Hours) Vital Signs Temp Pulse Pulse Resp BP Pulse Ox 11/30/20 07:57 36.4 C L 130 H 20 92/59 L 99 11/30/20 07:42 105 H 11/30/20 04:09 36.2 C L 124 H 18 91/66 L 98 11/30/20 00:07 106 H 11/29/20 23:07 36.0 C L 106 H 18 97/66 L 96 Medications Administered Current Inpatient Medications Acetaminophen (Acetaminophen 325 Mg Tab) 650 mg PO Q4H PRN PRN Reason: Pain or Fever Stop: 12/26/20 07:24 Albuterol (Albuterol Hfa 8 Gm Inhaler) 2 puffs INH QID PRN PRN Reason: Wheezing Stop: 12/26/20 07:24 Aripiprazole (Aripiprazole 1 Mg/Ml Oral Soln 150 Ml Btl) [facility] [place] Stop: 12/26/20 08:59 Last Admin: 11/30/20 08:36 Dose: 2 mg Documented by: Calcium Acetate (Calcium Acetate 667 Mg Cap/Tab) 667 mg PO TIDM [facility] Stop: 12/26/20 07:59 Last Admin: 11/30/20 08:35 Dose: 667 mg Documented by: Clopidogrel Bisulfate (Clopidogrel Bisulfate 75 Mg Tab) 75 mg PO [facility] Stop: 12/26/20 08:59 Last Admin: 11/30/20 08:35 Dose: 75 mg Documented by: Docusate Sodium (Docusate Sodium 100 Mg Cap) 100 mg PO QAM PRN PRN Reason: Constipation Stop: 12/26/20 07:24 Last Admin: 11/26/20 08:23 Dose: 100 mg Documented by: Fluoxetine HCl (Fluoxetine Hcl 20 Mg Cap) 20 [facility] [place] Stop: 12/26/20 08:59 Last Admin: 11/30/20 08:34 Dose: 20 mg Documented by: Fluoxetine HCl (Fluoxetine Hcl 10 Mg Cap) 10 [facility] [place] Stop: 12/26/20 08:59 Last Admin: 11/30/20 08:36 Dose: 10 mg Documented by: Insulin Aspart (Insulin Aspart 100 Units/Ml 3 Ml Pen) 0 units SC [facility] Stop: 12/26/20 07:29 Last Admin: 11/30/20 08:38 Dose: 1 units Documented by: Levothyroxine Sodium (Levothyroxine Sodium 200 Mcg Tablet) [facility] Stop: 12/26/20 07:59 Last Admin: 11/30/20 06:06 Dose: 200 mcg Documented by: Loratadine (Loratadine 10 Mg Tab) 10 mg [facility] [place] Stop: 12/26/20 08:59 Last Admin: 11/30/20 08:35 Dose: 10 mg Documented by: Metoprolol Succinate (Metoprolol Succ 50mg Ext Rel Tab) 100 mg PO BID [facility] Stop: 12/26/20 08:59 Last Admin: 11/30/20 08:36 Dose: 100 mg Documented by: Metronidazole (Metronidazole 500 Mg Tab) 500 mg PO Q12 [facility]; Protocol Stop: 12/09/20 21:59 Last Admin: 11/30/20 08:34 Dose: 500 mg Documented by: Miscellaneous Information (Metronidazole Consult Active) 1 ea N/A UD PRN PRN Reason: Consult Stop: 12/29/20 14:47 Nitroglycerin (Nitroglycerin Sl 0.4 Mg/Tab Tab) 0.4 mg SL UD PRN PRN Reason: Chest Pain Stop: 12/26/20 07:24 Ondansetron HCl (Ondansetron Inj 2 Mg/Ml 2 Ml Vial) 4 mg IV Q6H PRN PRN Reason: Nausea Stop: 12/26/20 07:24 Last Admin: 11/28/20 12:30 Dose: 4 mg Documented by: Tramadol HCl (Tramadol Hcl 50 Mg Tablet) 50 mg PO HS PRN PRN Reason: leg pain Stop: 12/26/20 07:24 Vitamin B Complex/Folic Acid (Nephrocaps) 1 cap PO [facility] Stop: 12/26/20 20:59 Last Admin: 11/29/20 20:54 Dose: 1 cap Documented by: Vitamin D (Cholecalciferol 1,000 Units 25 Mcg Tab) 5,000 units [facility] [place] Stop: 12/26/20 08:59 Last Admin: 11/30/20 08:35 Dose: 5,000 units Documented by: Zinc Sulfate (Zinc Sulfate 220 Mg Capsule) 220 mg PO [facility] Stop: 12/26/20 20:59 Last Admin: 11/29/20 20:55 Dose: 220 mg Documented by: (1) Diabetes mellitus, type II Chronic kidney disease stage: stage 3 (moderate) Diabetes mellitus complication detail: with chronic kidney disease Diabetes mellitus complication status: with kidney complications Diabetes mellitus senior care insulin use: unspecified senior care insulin use status Qualified Code(s): E11.22 - Type 2 diabetes mellitus with diabetic chronic kidney disease; N18.3 - Chronic kidney disease, stage 3 (moderate)
[2020-11-30] MEDS ORDERED: SODIUM CHLORIDE 0.9% 500 ML IV SCH (10:45)
[2020-11-30 11:41] LABS: Hematocrit (blood only) 35.9 % (37-47); Hemoglobin 10.9 g/dL (12.0-16.0); Mean Corpuscular Hemoglobin 31.2 pg (25-34); Mean Corpuscular Hgb Conc 30.4 g/dL (32-36); Mean Corpuscular Volume 102.9 fL (80-100); Mean Platelet Volume 10.2 fL (7.4-10.4); Platelet Count 150 K/uL (130-400); RDW Coefficient of Variation 16.6 % (11.5-14.5); Red Blood Count 3.49 M/uL (4.2-5.4); White Blood Count 5.86 K/uL (4.8-10.8)
[2020-11-30] MEDS ORDERED: PIPERACILL/TAZOBAC CONSULT ACTIVE PRN (11:55)
--- NOTE | 2020-11-30 11:59 | Gastrointestinal Consultation ---
Date of Consultation November 30, 2020 Assessment & Plan (1) Abdominal pain: 85 year old w/ chronic anorexia, pain w/ PO and food aversions w/ CT imaging showing intestinal pneumatosis concerning for chronic mesenteric angina/ischemic. Today, having less pain, able to re-initiate PO intake Conservative care Volume resuscitation Consider repeat CT scan w/ contrast or CTA but will need to be cleared by nephrology Diet as tolerated In regards to her elevated AST/ALT this is improving since admission, would continue to trend LFTs. If persistently elevated can have serology. DDX medication induced, low blood flow etc In regards to her PD dilation, consider repeat CT scan w/ contrast if cleared by nephrology Thank you for allowing us to participate in the care of this patient. Please call with any acute changes, questions or concerns. Please see addendum below with additional recommendation from my supervising physician. Supervising Physician Co-Signing Physician Notes Attending attestation I have seen, examined this patient, and agree with the findings and above by our mid-level provider ELIAS Briceno, with the following additions: Both chronic and acute presentation are very concerning for mesenteric angina/ischemia. On her noncontrasted CT scan she has a very heavy burden of atherosclerotic disease of her mesenteric vessels. She also has notations of dilated pancreatic duct with what appears to be a cystic lesion in the genu. This could be a solid lesion that would require a contrasted scan and/or MRI to help elucidate. She is improved at this time, would agree with cardiology for volume resuscitation to see if this improves her overall state. It may be imperative given her frail nature to have a very small window of ultrafiltration at dialysis to maintain euvolemia and hopefully to prevent both mesenteric blood shunting as well as cardiac compromise. History of Present Illness Reason for Consultation: elevated LFTs, abd pain, PI on CTAP Requesting Physician: Soto Attending Physician: Mishel Valera, DO History of Present Illness 85 year old female with history of afib, CHF, recurrent pleural effusion requiring multiple thoracenteses, mitral valve regurg s/p repair, patent foramen ovale s/p surgical closure, CAD, venous insufficiency, T2DM, ESRD on dialysis, hypertension, hyperlipidemia, hypothyroidism, DANIEL, SWAPNA admitted through the ED w/ pain, nausea, decreased appetite GI asked to evaluate given abnormal CTAP, pain with PO. She notes for quite some time now she has pain with any attempted PO intake. This is fairly severe which prompted ED evaluation. Denies GERD. No change in bowel habits. Weight loss progressive x 3 years, nearly 100 lbs in total but 20 lbs weight loss since July 2020. Non con CTAP concerning for pneumatosis intestinalis with small droplets of air within the mesentery. Was evaluated by general surgery who is following with conservative measures. CTAP 2020: No evidence of bowel structure.Pneumatosis intestinalis with small droplets of air within the mesentery. Clinical correlation will be necessary to differentiate benign pneumatosis from bowel ischemia. Pneumobilia No renal, ureteral, or bladder calculi identified Distal pancreatic glandular atrophy. Persistent marked dilatation of the pancreatic duct at the level the pancreatic neck and proximal body measuring 12 mm EGD 2018: Normal esophagus. Gastritis. Biopsied. Normal duodenal bulb and second portion of the duodenum. Biopsied. Colonoscopy 2018: diverticulosis, The colon was otherwise normal to the terminal ileum with retroflexed views of the colon and terminalileum. Allergies Allergy/AdvReac Type Severity Reaction Status Date / Time No Known Allergies Allergy Verified 11/26/20 00:03 Home Medications Medication Instructions Recorded Confirmed Type clopidogrel [Plavix] 75 mg PO QAM 08/22/18 11/26/20 History tramadol 50 mg PO HS PRN 08/22/18 11/26/20 History acetaminophen [Tylenol Extra 500 - 1,000 mg PO Q6H PRN 12/20/18 11/26/20 History Strength] Lantus U-100 Insulin 10 unit SUBCUT QAM 01/10/20 11/26/20 History albuterol sulfate 2 puff INHALATION QID PRN 01/10/20 11/26/20 History aripiprazole [Abilify] 2 mg PO QAM 01/10/20 11/26/20 History docusate sodium 100 mg PO QAM PRN 01/10/20 11/26/20 History semaglutide 1 mg SUBCUT WK 01/10/20 11/26/20 History zinc sulfate [Zinc-220] 220 mg PO HS 01/10/20 11/26/20 History Renal Caps 1 cap PO HS #30 cap 03/28/20 11/26/20 Rx calcium acetate 667 mg PO TIDM 06/28/20 11/26/20 History cholecalciferol (vitamin D3) 125 mcg PO QAM 06/28/20 11/26/20 History [Vitamin D3] fluoxetine [Prozac] 20 mg PO QAM 06/28/20 11/26/20 History loratadine 10 mg PO QAM 06/28/20 11/26/20 History fluoxetine 10 mg PO QAM 11/26/20 11/26/20 History levothyroxine 200 mcg PO DAILY 11/26/20 11/26/20 History metoprolol succinate 100 mg PO BID 11/26/20 11/26/20 History mirtazapine 15 mg PO HS 11/26/20 11/26/20 History Patient History Medical History Anemia due to chronic kidney disease Asthma D.O.E > USES RES. INH A FEW TIMES A WEEK CAD (coronary artery disease) Cardiac cath 2011 demonstrated nonobstructive disease CHF (congestive heart failure) Chronic diastolic CHF (congestive heart failure) FOLLOWS PORTILLO BAIG CVA (cerebral vascular accident) 2 YRS AGO> [facility]> GENERALIZED WEAKNESS SINCE> NO NEUROLOGY-NO NEW ISSUES Depression Diabetes mellitus, type II IDDM Diabetic polyneuropathy Dialysis patient E//SAT > IN [facility] Dyslipidemia ESRD (end stage renal disease) Previously stage III CKD, hospitalized in [place] for fall 03/04/20, found to be in BARBARA. Tx to [facility] with worsening BARBARA, felt 2/2 ATN. Perm cath placed and dialysis initiated. GERD (gastroesophageal reflux disease) UNDER CONTROL History of mitral valve disease S/P mitral valve repair 2012. Mild mitral stenosis noted on 03/10/20 echo. History of pleural effusion With multiple thoracentesis > LAST EPISODE 2 YRS AGO PER PT Hx MRSA infection 02/2020 RIGHT 2ND TOE STILL BLEEDS AT TIMES, NO LONGER ON TREATMENT Hypertension Hypothyroidism Iron deficiency anemia Osteoporosis SOB (shortness of breath) on exertion FLAT SURFACES ANY ELEVATION Venous insufficiency of both lower extremities Surgical History History of cardiac cath 2011> NO STENTS> [facility] History of colonoscopy History of esophagogastroduodenoscopy (EGD) History of tooth extraction History of vascular access device HAS PRESENTLY TO RIGHT CHEST S/P patent foramen ovale closure 2012 > [place] Status post cataract extraction BILAT Status post cholecystectomy Status post hysterectomy Status post mitral valve repair 2013 > KLARISSA Family History Other Family history non-contributory Social History Smoking Status: Former smoker Second Hand Exposure: Yes (PARENTS SMOKED); Hx Alcohol Use: No Hx Substance Use: No Preferred Language: Persian Communication Ability: Effective Group Tester Required: No Beliefs That Will Affect Care: None marital status: Current Living Situation: Spouse current occupational status: retired How many Children do You have: 5 Feels Safe at Home: Yes Assistive Devices: Walker Review of Systems Review of Systems: All systems reviewed & are unremarkable except as noted in HPI & below Physical Exam Constitutional: + ill appearing (chronically ill appearing), + thin, + frail appearing, cooperative and comfortable; no acute distress Neck: trachea midline, no thyromegaly Respiratory: normal respiratory effort, lungs clear to auscultation Cardiovascular: Rate/Rhythm: regular rhythm and + tachycardic Heart Sounds: normal S1 and normal S2 Gastrointestinal (Abdomen): Inspection/Auscultation: normal bowel sounds; abdomen not distended Percussion/Palpation: abdomen soft; abdomen nontender, no guarding, abdomen not rigid, no hernia, no abdominal mass and no ascites Skin: no rashes, warm and dry Results & Data ([facility]) Vital Signs (Past 12 Hours) Vital Signs Temp Pulse Pulse Resp BP Pulse Ox 11/30/20 11:42 36.4 C L 108 H 20 97/68 L 91 11/30/20 07:57 36.4 C L 130 H 20 92/59 L 99 11/30/20 07:42 105 H 11/30/20 04:09 36.2 C L 124 H 18 91/66 L 98 11/30/20 00:07 106 H Laboratory Results 11/30/20 11/30/20 11/30/20 Range/Units 12:02 11:21 11:10 WBC (4.8-10.8) K/uL RBC (4.2-5.4) M/uL Hgb (12.0-16.0) g/dL Hct (37-47) % MCV (80-100) fL MCH (25-34) pg MCHC (32-36) g/dL RDW Std Deviation (36.4-46.3) fL RDW Coeff of Rosalba (11.5-14.5) % Plt Count (130-400) K/uL MPV (7.4-10.4) fL Sodium 136 (136-145) mmol/L Potassium 3.8 (3.5-5.1) mmol/L Chloride 102 (98-107) mmol/L Carbon Dioxide 31 (21-32) mmol/L Anion Gap 3.0 (3-11) BUN 18 (7-18) mg/dl Creatinine 2.98 H D (0.6-1.2) mg/dl Est Cr Clr Drug Dosing 11.8 ml/min Est GFR ( Amer) 16.1 ml/min Est GFR (Non-Af Amer) 13.9 ml/min BUN/Creatinine Ratio 5.9 L (10-20) Glucose 157 H (70-99) mg/dl POC Glucose 168 H (70-99) mg/dl Lactate Pending Calcium 8.4 L (8.5-10.1) mg/dl Phosphorus Pending Magnesium 2.2 (1.8-2.4) mg/dl Total Bilirubin Pending AST 40 H (15-37) U/L ALT 118 H (12-78) U/L Alkaline Phosphatase Pending Total Protein Pending Albumin 2.9 L (3.4-5.0) gm/dl Globulin Pending Albumin/Globulin Ratio Pending 11/30/20 11/30/20 11/29/20 Range/Units 11:10 07:39 20:06 WBC 5.86 (4.8-10.8) K/uL RBC 3.49 L (4.2-5.4) M/uL Hgb 10.9 L (12.0-16.0) g/dL Hct 35.9 L (37-47) % MCV 102.9 H (80-100) fL MCH 31.2 (25-34) pg MCHC 30.4 L (32-36) g/dL RDW Std Deviation 63.0 H (36.4-46.3) fL RDW Coeff of Rosalba 16.6 H (11.5-14.5) % Plt Count 150 (130-400) K/uL MPV 10.2 (7.4-10.4) fL Sodium (136-145) mmol/L Potassium (3.5-5.1) mmol/L Chloride (98-107) mmol/L Carbon Dioxide (21-32) mmol/L Anion Gap (3-11) BUN (7-18) mg/dl Creatinine (0.6-1.2) mg/dl Est Cr Clr Drug Dosing ml/min Est GFR ( Amer) ml/min Est GFR (Non-Af Amer) ml/min BUN/Creatinine Ratio (10-20) Glucose (70-99) mg/dl POC Glucose 105 H 128 H (70-99) mg/dl Lactate Calcium (8.5-10.1) mg/dl Phosphorus Magnesium (1.8-2.4) mg/dl Total Bilirubin AST (15-37) U/L ALT (12-78) U/L Alkaline Phosphatase Total Protein Albumin (3.4-5.0) gm/dl Globulin Albumin/Globulin Ratio 11/29/20 11/29/20 Range/Units 16:51 14:23 WBC (4.8-10.8) K/uL RBC (4.2-5.4) M/uL Hgb (12.0-16.0) g/dL Hct (37-47) % MCV (80-100) fL MCH (25-34) pg MCHC (32-36) g/dL RDW Std Deviation (36.4-46.3) fL RDW Coeff of Rosalba (11.5-14.5) % Plt Count (130-400) K/uL MPV (7.4-10.4) fL Sodium (136-145) mmol/L Potassium (3.5-5.1) mmol/L Chloride (98-107) mmol/L Carbon Dioxide (21-32) mmol/L Anion Gap (3-11) BUN (7-18) mg/dl Creatinine (0.6-1.2) mg/dl Est Cr Clr Drug Dosing ml/min Est GFR ( Amer) ml/min Est GFR (Non-Af Amer) ml/min BUN/Creatinine Ratio (10-20) Glucose (70-99) mg/dl POC Glucose 123 H 97 (70-99) mg/dl Lactate Calcium (8.5-10.1) mg/dl Phosphorus Magnesium (1.8-2.4) mg/dl Total Bilirubin AST (15-37) U/L ALT (12-78) U/L Alkaline Phosphatase Total Protein Albumin (3.4-5.0) gm/dl Globulin Albumin/Globulin Ratio
[2020-11-30] MEDS: HEPARIN SOD 5,000 UNIT/0.5 ML VIAL SQ SCH ×2 (12:01→20:47)
[2020-11-30 12:06] LABS: Albumin Level 2.9 gm/dl (3.4-5.0); BUN Creatinine Ratio 5.9 (10-20); Calcium 8.4 mg/dl (8.5-10.1); Creatinine Clr Calc Pharmacy 11.8 ml/min; Est GFR (African American) 16.1 ml/min; Est GFR (Non-African American) 13.9 ml/min; Magnesium 2.2 mg/dl (1.8-2.4); Potassium 3.8 mmol/L (3.5-5.1)
[2020-11-30 12:09] LABS: Albumin Globulin Ratio 0.8 (0.9-2); Bilirubin,Total 0.4 mg/dl (0.2-1); Globulin 3.5 gm/dl (2.5-4.0); Total Protein 6.4 gm/dl (6.4-8.2)
[2020-11-30] MEDS ORDERED: PIPERACILLIN/TAZOBACTAM 3.375 GM in DEXTROSE 5% 100 ML IV ONE (12:15)
--- NOTE | 2020-11-30 12:52 | Cardiology Consultation ---
Date of Consultation November 30, 2020 Assessment & Plan (1) Atrial fibrillation with tachycardic ventricular rate: Complex patient admitted with acute abdominal issues possible mesenteric ischemia with slowly improving functional status however persistent anorexia and now hypotension with orthostasis, elevated atrial fibrillation ventricular response rates. Recommendations: Continue current dosing of metoprolol without hold. Would recommend fluid hydration and resuscitation, assess for alternate causes of hypotension with tachycardia including infection, hypoxia. Echocardiogram be ordered to reassess LV function and valve structure. If all other findings are stable and heart rate remains persistently elevated could consider increasing heart rate control however blood pressure limits increasing beta-opal use. Relative con traindication to use of digoxin in the setting of potential mesenteric ischemia, chronic anorexia. Amiodarone poor choice in the setting of elevated hepatic enzymes at base We will follow in hospital. (2) Pneumatosis intestinalis: Per surgery and GI consultation (3) Abnormal LFTs: (4) End-stage renal disease on hemodialysis: (5) Severe protein-calorie malnutrition: (6) Chronic diastolic CHF (congestive heart failure): (7) Status post mitral valve repair: History of Present Illness Reason for Consultation: Elevated heart rate, low blood pressure, persistent atrial fibrillation Requesting Physician: Dr. Valera Attending Physician: Mishel Valera, DO History of Present Illness Patient is a very complex 85-year-old female with ongoing issues which include (obtained from discussion with patient and review of outpatient records) 1. Persistent atrial fibrillation since May 2020, not on anticoagulation 2. Status post mitral valve repair 12/05/2012 for severe mitral insufficiency, patent foramen ovale closure 3. Minimal coronary artery disease cardiac catheterization October 2011 4. Diastolic heart failure with recurrent pleural effusions 5. Paraventricular stroke January 2018 6. End-stage renal disease on hemodialysis replacement Patient referred for evaluation of hemodynamics. She has been hospitalized this admission due to anorexia weight loss and pneumatosis intestinalis. GI issues appear to be slowly improving though patient noting to have difficulties with increasing heart rate low blood pressures and orthostasis. She denies any specific chest pains dizziness or lightheadedness. Abdominal discomfort has improved. Was able to take small amounts of food earlier today. Is aware she is lost a substantial amount of weight over the past year per her description due to poor p.o. intake and anorexia. No worsening edema. No fevers or chills currently. No headache or visual changes. No overt bleeding Atrial fibrillation has been persistent as an outpatient with mildly elevated average heart rates at home, average heart rate on outpatient monitor 95 bpm Today heart rates higher with noted orthostasis and borderline hypotension. No acute complaints per patient Allergies Allergy/AdvReac Type Severity Reaction Status Date / Time No Known Allergies Allergy Verified 11/26/20 00:03 Home Medications Medication Instructions Recorded Confirmed Type clopidogrel [Plavix] 75 mg PO QAM 08/22/18 11/26/20 History tramadol 50 mg PO HS PRN 08/22/18 11/26/20 History acetaminophen [Tylenol Extra 500 - 1,000 mg PO Q6H PRN 12/20/18 11/26/20 History Strength] Lantus U-100 Insulin 10 unit SUBCUT QAM 01/10/20 11/26/20 History albuterol sulfate 2 puff INHALATION QID PRN 01/10/20 11/26/20 History aripiprazole [Abilify] 2 mg PO QAM 01/10/20 11/26/20 History docusate sodium 100 mg PO QAM PRN 01/10/20 11/26/20 History semaglutide 1 mg SUBCUT WK 01/10/20 11/26/20 History zinc sulfate [Zinc-220] 220 mg PO HS 01/10/20 11/26/20 History Renal Caps 1 cap PO HS #30 cap 03/28/20 11/26/20 Rx calcium acetate 667 mg PO TIDM 06/28/20 11/26/20 History cholecalciferol (vitamin D3) 125 mcg PO QAM 06/28/20 11/26/20 History [Vitamin D3] fluoxetine [Prozac] 20 mg PO QAM 06/28/20 11/26/20 History loratadine 10 mg PO QAM 06/28/20 11/26/20 History fluoxetine 10 mg PO QAM 11/26/20 11/26/20 History levothyroxine 200 mcg PO DAILY 11/26/20 11/26/20 History metoprolol succinate 100 mg PO BID 11/26/20 11/26/20 History mirtazapine 15 mg PO HS 11/26/20 11/26/20 History Patient History Medical History Anemia due to chronic kidney disease Asthma D.O.E > USES RES. INH A FEW TIMES A WEEK CAD (coronary artery disease) Cardiac cath 2011 demonstrated nonobstructive disease CHF (congestive heart failure) Chronic diastolic CHF (congestive heart failure) FOLLOWS PORTILLO BAIG CVA (cerebral vascular accident) 2 YRS AGO> [facility] [place]> GENERALIZED WEAKNESS SINCE> NO NEUROLOGY-NO NEW ISSUES Depression Diabetes mellitus, type II IDDM Diabetic polyneuropathy Dialysis patient TUE/THURS/SAT > IN [facility] Dyslipidemia ESRD (end stage renal disease) Previously stage III CKD, hospitalized in [place] for fall 03/04/20, found to be in BARBARA. Tx to [facility], [place] with worsening BARBARA, felt 2/2 ATN. Perm cath placed and dialysis initiated. GERD (gastroesophageal reflux disease) UNDER CONTROL History of mitral valve disease S/P mitral valve repair 2012. Mild mitral stenosis noted on 03/10/20 echo. History of pleural effusion With multiple thoracentesis > LAST EPISODE 2 YRS AGO PER PT Hx MRSA infection 02/2020 RIGHT 2ND TOE STILL BLEEDS AT TIMES, NO LONGER ON TREATMENT Hypertension Hypothyroidism Iron deficiency anemia Osteoporosis SOB (shortness of breath) on exertion FLAT SURFACES ANY ELEVATION Venous insufficiency of both lower extremities Surgical History History of cardiac cath 2011> NO STENTS> [facility] [place] History of colonoscopy History of esophagogastroduodenoscopy (EGD) History of tooth extraction History of vascular access device HAS PRESENTLY TO RIGHT CHEST S/P patent foramen ovale closure 2012 > KL[place]ISSA Status post cataract extraction BILAT Status post cholecystectomy Status post hysterectomy Status post mitral valve repair 2012 > KLARISSA Family History Other Family history non-contributory Social History Smoking Status: Former smoker Second Hand Exposure: Yes (PARENTS SMOKED); Hx Alcohol Use: No Hx Substance Use: No Preferred Language: Dutch Communication Ability: Effective Salt Washer Required: No Beliefs That Will Affect Care: None marital status: Current Living Situation: Spouse current occupational status: retired How many Children do You have: 5 Feels Safe at Home: Yes Assistive Devices: Walker Review of Systems Review of Systems: All systems reviewed & are unremarkable except as noted in HPI & below Physical Exam Constitutional: + frail appearing; no acute distress Eyes: PERRL, conjunctivae normal, anicteric sclerae ENMT: external ear and nose normal, oropharynx normal Neck: trachea midline, no thyromegaly Respiratory: normal respiratory effort, lungs clear to auscultation Cardiovascular: Rate/Rhythm: + tachycardic and + irregularly irregular Vessels: no JVD Extremities: no edema Distant heart sounds no audible murmur. Gastrointestinal (Abdomen): Percussion/Palpation: + abdomen tender (Mild on deep palpation) and abdomen soft Musculoskeletal: Extremities: no cyanosis and no clubbing Results & Data ([facility]) Vital Signs (Past 12 Hours) Vital Signs Temp Pulse Pulse Resp BP Pulse Ox 11/30/20 11:42 36.4 C L 108 H 20 97/68 L 91 11/30/20 07:57 36.4 C L 130 H 20 92/59 L 99 11/30/20 07:42 105 H 11/30/20 04:09 36.2 C L 124 H 18 91/66 L 98 Laboratory Results Laboratory Results - last 24 hr 11/29/20 11/29/20 11/29/20 14:23 16:51 20:06 WBC RBC Hgb Hct MCV MCH MCHC RDW Std Deviation RDW Coeff of Rosalba Plt Count MPV Sodium Potassium Chloride Carbon Dioxide Anion Gap BUN Creatinine Est Cr Clr Drug Dosing Est GFR ( Amer) Est GFR (Non-Af Amer) BUN/Creatinine Ratio Glucose POC Glucose 97 123 H 128 H Lactate Calcium Phosphorus Magnesium Total Bilirubin AST ALT Alkaline Phosphatase Total Protein Albumin Globulin Albumin/Globulin Ratio 11/30/20 11/30/20 11/30/20 07:39 11:10 11:10 WBC 5.86 RBC 3.49 L Hgb 10.9 L Hct 35.9 L MCV 102.9 H MCH 31.2 MCHC 30.4 L RDW Std Deviation 63.0 H RDW Coeff of Rosalba 16.6 H Plt Count 150 MPV 10.2 Sodium 136 Potassium 3.8 Chloride 102 Carbon Dioxide 31 Anion Gap 3.0 BUN 18 Creatinine 2.98 H D Est Cr Clr Drug Dosing 11.8 Est GFR ( Amer) 16.1 Est GFR (Non-Af Amer) 13.9 BUN/Creatinine Ratio 5.9 L Glucose 157 H POC Glucose 105 H Lactate Calcium 8.4 L Phosphorus 3.0 D Magnesium 2.2 Total Bilirubin 0.4 AST 40 H ALT 118 H Alkaline Phosphatase 63 Total Protein 6.4 Albumin 2.9 L Globulin 3.5 Albumin/Globulin Ratio 0.8 L 11/30/20 11/30/20 11:21 12:02 WBC RBC Hgb Hct MCV MCH MCHC RDW Std Deviation RDW Coeff of Rosalba Plt Count MPV Sodium Potassium Chloride Carbon Dioxide Anion Gap BUN Creatinine Est Cr Clr Drug Dosing Est GFR ( Amer) Est GFR (Non-Af Amer) BUN/Creatinine Ratio Glucose POC Glucose 168 H Lactate 2.0 Calcium Phosphorus Magnesium Total Bilirubin AST ALT Alkaline Phosphatase Total Protein Albumin Globulin Albumin/Globulin Ratio ECG Additional Comments: 30-NOV-2020 10:11:05 [facility] [place]-2 [place] ROUTINE RETRIEVAL Atrial fibrillation with rapid ventricular response Cannot rule out Anterior infarct , age undetermined Abnormal ECG When compared with ECG of 25-NOV-2020 23:46, No significant change was found
[2020-11-30] MEDS ORDERED: SODIUM CHLORIDE 0.9% 1000ML 1,000 ML IV SCH (14:45)
[2020-11-30] MEDS ORDERED: OPTIRAY 320 125ml IV ONE (15:13)
--- NOTE | 2020-11-30 15:32 | CT Scan Report ---
CT angio abdomen pelvis w con CT DOSE: 542.42 mGycm CLINICAL HISTORY: Sepsis. Possible mesenteric ischemia. TECHNIQUE: CT angiography the abdomen and pelvis was performed in a dynamic helical fashion during in travenous administration of 120 cc of Optiray 320. MIP images were acquired. A dose lowering techniq ue was utilized adhering to the principles of ALARA. COMPARISON STUDY: Noncontrast study dated 11/26/2020 FINDINGS: There are dependent bibasilar airspace opacities, statistically atelectatic there is mild interlobula r septal edema. There is reflux of contrast into the IVC and hepatic veins. No hepatic masses are visualized. There i s pneumobilia. The gallbladder was not visualized presumed surgically absent. No splenic lesions are visualized. Pancreas is atrophic. There is marked focal dilatation of the pancreatic duct at the level of the almaraz creatic neck and proximal body. This measures 12 mm. No suspicious adrenal masses are visualized. No suspicious renal masses are visualized on this arterial phase study. There are no transition zones indicate bowel obstruction. There is borderline wall thickening involvi ng the cecum and proximal ascending colon The uterus appears surgically absent. There is persistent nonspecific prominence of the soft tissues at the level of the lower rectum/vagin a. There are trace drop is gas within the subcutaneous tissues of the left lower abdominal wall, possibl y intravascular. There is no evidence of superior mesenteric or celiac artery stenosis. The inferior mesenteric artery is patent. There is no evidence of hemodynamically significant renal artery stenosis. There is no evidence for iliac artery stenosis. There is no evidence of abdominal aortic aneurysm. Mild atheromatous changes are present within the mesenteric vessels. The mid to distal superior mesenteric artery has a somewhat beaded appearance. Inguinal lymph nodes remain mildly prominent. IMPRESSION: 1. No evidence of abdominal aortic aneurysm 2. No evidence of aortic or iliac artery stenosis 3. No evidence of celiac, superior mesenteric, or renal artery stenosis. 4. Bibasilar pulmonary opacities likely atelectatic. Basilar interlobular septal edema. 5. Pneumobilia. No evidence of mesenteric venous gas. 6. Minimal free pelvic fluid to 6. Borderline wall thickening involving the cecum and proximal ascending colon ACT 112: Negative or not required by law. Electronically signed by: Juan Miguel Falk M.D. 11/30/2020 3:30 PM
[2020-11-30] MEDS: ZINC SULFATE 220 MG CAPSULE PO SCH (20:48)
[2020-11-30] MEDS: NEPHROCAPS PO SCH (20:48)
[2020-11-30] MEDS: PIPERACILLIN/TAZOBACTAM 3.375 GM in DEXTROSE 5% 100 ML IV SCH (20:57)
[2020-12-01] MEDS: LEVOTHYROXINE SODIUM 200 MCG TABLET PO SCH (06:16)
[2020-12-01] MEDS ORDERED: SODIUM CHLORIDE 0.9% 1000ML 1,000 ML IV PRN (07:19)
[2020-12-01] MEDS ORDERED: EPOETIN ALFA 4,000 UNIT/ML VIAL IV SCH (08:00)
[2020-12-01] MEDS ORDERED: HEPARIN SOD (PORCINE) 1000 UNIT/ML IV SCH (08:00)
[2020-12-01] MEDS: CLOPIDOGREL BISULFATE 75 MG TAB PO SCH (08:17)
[2020-12-01] MEDS: ARIPIprazole 1 MG/ML ORAL SOLN 150 ML BTL PO SCH (08:17)
[2020-12-01] MEDS: CHOLECALCIFEROL 1,000 UNITS 25 MCG TAB PO SCH (08:18)
[2020-12-01] MEDS: FLUoxetine HCL 20 MG CAP PO SCH (08:18)
[2020-12-01] MEDS: LORATADINE 10 MG TAB PO SCH (08:18)
[2020-12-01] MEDS: FLUoxetine HCL 10 MG CAP PO SCH (08:18)
[2020-12-01] MEDS: CALCIUM ACETATE 667 MG CAP/TAB PO SCH ×3 (08:18→17:56)
--- NOTE | 2020-12-01 08:22 | Cardiology Consultation ---
Date of Consultation December 01, 2020 Assessment & Plan (1) Atrial fibrillation with tachycardic ventricular rate: Complex patient admitted with acute abdominal issues possible mesenteric ischemia with slowly improving functional status however persistent anorexia and now hypotension with orthostasis, elevated atrial fibrillation ventricular response rates. Recommendations: Unfortunately, given the patient's current clinical status our options are significantly limited in terms of treatment of her atrial fibrillation. Amiodarone is indicated and has been beneficial for the patient overnight with rates improvement. However, there is a concern that should she convert to normal sinus rhythm then cardioembolic event may occur. This risk was discussed with the patient as well without lack of other viable treatment options given her clinical status and she is in agreement with continuation of the amiodarone. has been transitioned to po amio, tolerating cont 400mg po bid for a total of 3 days then 400mg po daily not an anticoagulation candidate. recommend hospice, appreciate input from Palliative Care colleague We will sign off. Please call with questions or concerns (2) Pneumatosis intestinalis: Per surgery and GI consultation (3) Abnormal LFTs: (4) End-stage renal disease on hemodialysis: (5) Severe protein-calorie malnutrition: (6) Chronic diastolic CHF (congestive heart failure): (7) Status post mitral valve repair: History of Present Illness Attending Physician: Mishel Valera DO History of Present Illness 1. Mild, nonobstructive coronary artery disease 2. Symptomatic bradycardia & sick sinus syndrome s/p 04/14/2009 dual chamber pacemaker implantation, generator exchange on 02/05/2020 3. Longstanding labile hypertension, hypertensive heart disease. 4. Hyperlipidemia 5. Type II diabetes mellitus with neuropathy 6. TIA x 4 for which he is prescribed ASA and Clopidogrel 7. Morbid obesity s/p gastric bypass with postgastric surgery syndrome 8. COPD with past tobacco abuse 9. Chart history of asthma 10. DANIEL 11. RLS 12. GERD/esophagitis 13. Anemia. History of B12 deficiency and iron deficiency. 14. Vitamin D deficiency 15. Osteoarthritis 16. Chronic back pain 17. Anxiety and depression. 18. Noncompliance. Allergies Allergy/AdvReac Type Severity Reaction Status Date / Time No Known Allergies Allergy Verified 11/26/20 00:03 Home Medications Medication Instructions Recorded Confirmed Type clopidogrel 75 mg tablet (Plavix) 75 mg PO QAM 08/22/18 11/26/20 History acetaminophen 500 mg tablet 500 - 1,000 mg PO Q6H PRN 12/20/18 11/26/20 History (Tylenol Extra Strength) albuterol sulfate 90 mcg/actuation 2 puff INHALATION QID PRN 01/10/20 11/26/20 History aerosol inhaler aripiprazole 2 mg tablet (Abilify) 2 mg PO QAM 01/10/20 11/26/20 History docusate sodium 100 mg capsule 100 mg PO QAM PRN 01/10/20 11/26/20 History zinc sulfate 50 mg zinc (220 mg) 220 mg PO HS 01/10/20 11/26/20 History capsule (Zinc-220) vitamin B complex and vitamin C 1 cap PO HS #30 cap 03/28/20 11/26/20 Rx no.20-folic acid 1 mg capsule (Renal Caps) calcium acetate 667 mg tablet 667 mg PO TIDM 06/28/20 11/26/20 History cholecalciferol (vitamin D3) 125 125 mcg PO QAM 06/28/20 11/26/20 History mcg (5,000 unit) tablet (Vitamin D3) fluoxetine 20 mg capsule (Prozac) 20 mg PO QAM 06/28/20 11/26/20 History loratadine 10 mg capsule 10 mg PO QAM 06/28/20 11/26/20 History fluoxetine 10 mg tablet 10 mg PO QAM 11/26/20 11/26/20 History levothyroxine 200 mcg tablet 200 mcg PO DAILY 11/26/20 11/26/20 History amiodarone 200 mg tablet 200 mg PO BIDM #30 tab 12/12/20 Rx dronabinol 2.5 mg capsule 2.5 mg PO DAILY #20 cap 12/12/20 Rx lorazepam 1 mg tablet 1 mg SUBLINGUAL Q4H PRN #20 tab 12/12/20 Rx metoprolol succinate 100 mg 50 mg PO BID #0 tab 12/12/20 11/26/20 Rx tablet,extended release 24 hr morphine 10 mg/5 mL oral solution 2.5 mg PO Q6H PRN #5 ml 12/12/20 Rx Patient History Medical History Anemia due to chronic kidney disease Asthma D.O.E > USES RES. INH A FEW TIMES A WEEK CAD (coronary artery disease) Cardiac cath 2011 demonstrated nonobstructive disease CHF (congestive heart failure) Chronic diastolic CHF (congestive heart failure) FOLLOWS PORTILLO BAIG CVA (cerebral vascular accident) 2 YRS AGO> [facility]> GENERALIZED WEAKNESS SINCE> NO NEUROLOGY-NO NEW ISSUES Depression Diabetes mellitus, type II IDDM Diabetic polyneuropathy Dialysis patient TUE//SAT > IN [facility] Dyslipidemia ESRD (end stage renal disease) Previously stage III CKD, hospitalized in [place] for fall 03/04/20, found to be in BARBARA. Tx to [facility] with worsening BARBARA, felt 2/2 ATN. Perm cath placed and dialysis initiated. GERD (gastroesophageal reflux disease) UNDER CONTROL History of mitral valve disease S/P mitral valve repair 2012. Mild mitral stenosis noted on 03/10/20 echo. History of pleural effusion With multiple thoracentesis > LAST EPISODE 2 YRS AGO PER PT Hx MRSA infection 02/2020 RIGHT 2ND TOE STILL BLEEDS AT TIMES, NO LONGER ON TREATMENT Hypertension Hypothyroidism Iron deficiency anemia Osteoporosis SOB (shortness of breath) on exertion FLAT SURFACES ANY ELEVATION Venous insufficiency of both lower extremities Surgical History History of cardiac cath 2011> NO STENTS> [facility] History of colonoscopy History of esophagogastroduodenoscopy (EGD) History of tooth extraction History of vascular access device HAS PRESENTLY TO RIGHT CHEST S/P patent foramen ovale closure 2012 > [place] Status post cataract extraction BILAT Status post cholecystectomy Status post hysterectomy Status post mitral valve repair 2012 > [place] Family History Other Family history non-contributory Social History Smoking Status: Former smoker Second Hand Exposure: Yes (PARENTS SMOKED); Hx Alcohol Use: No Hx Substance Use: No Preferred Language: Bhutanese Communication Ability: Effective Cotton Stripper Required: No Beliefs That Will Affect Care: None marital status: Current Living Situation: Spouse current occupational status: retired How many Children do You have: 5 Feels Safe at Home: Yes Assistive Devices: Denture - Upper Review of Systems Review of Systems: All systems reviewed & are unremarkable except as noted in HPI & below Physical Exam Physical Exam: General: Awake, alert and oriented x 3. No acute distress. Frail and cachectic HEENT: Normocephalic, atraumatic. Pupils equal, round and reactive to light and accommodation. Extraocular muscles are intact. Anicteric sclera. Moist mucous membranes. Neck: No JVD. No bruit. Cardiovascular: irregularly irregular, unable to appreciate murmur, rub or gallop. Pulmonary: Clear to auscultation bilaterally. No rales, rhonchi, or wheezing. Abdomen: Bowel sounds x 4, soft. No rebound, guarding or tenderness. No organomegaly. Extremities: No clubbing, cyanosis or edema. +2 pedal pulses bilaterally. Skin: Warm and dry. Results & Data ([facility]) Vital Signs (Past 12 Hours) Vital Signs Temp Pulse Resp BP Pulse Ox 12/01/20 07:33 36.5 C 109 H 18 110/66 97 12/01/20 04:24 36.4 C L 121 H 18 123/89 100 11/30/20 23:54 36.3 C L 106 H 18 102/60 97
[2020-12-01] MEDS: INSULIN ASPART 100 UNITS/ML 3 ML PEN SC SCH ×4 (08:26→22:50)
[2020-12-01 08:30] LABS: Basophils # (auto) 0.01 K/uL (0-0.2); Basophils % (auto) 0.2 %; Eosinophils # (auto) 0.03 K/uL (0-0.5); Eosinophils % (auto) 0.5 %; Hematocrit (blood only) 36.2 % (37-47); Hemoglobin 11.1 g/dL (12.0-16.0); Immature Granulocytes # (auto) 0.02 K/uL (0.00-0.02); Immature Granulocytes % (auto) 0.4 %; Lymphocytes # (auto) 0.57 K/uL (1.2-3.4); Lymphocytes % (auto) 10.4 %; Mean Corpuscular Hemoglobin 30.5 pg (25-34); Mean Corpuscular Hgb Conc 30.7 g/dL (32-36); Mean Corpuscular Volume 99.5 fL (80-100); Mean Platelet Volume 10.6 fL (7.4-10.4); Monocytes # (auto) 0.32 K/uL (0.11-0.59); Monocytes % (auto) 5.9 %; Neutrophils # (auto) 4.51 K/uL (1.4-6.5); Neutrophils % (auto) 82.6 %; Platelet Count 165 K/uL (130-400); RDW Coefficient of Variation 16.7 % (11.5-14.5); Red Blood Count 3.64 M/uL (4.2-5.4); White Blood Count 5.46 K/uL (4.8-10.8)
--- NOTE | 2020-12-01 08:33 | Gastroenterology Progress Note ---
Date of Service December 01, 2020 Assessment & Plan (1) Abdominal pain: 85 year old w/ chronic anorexia, pain w/ PO and food aversions w/ CT imaging showing intestinal pneumatosis concerning for chronic mesenteric angina/ischemic. Today, having less pain, able to re-initiate PO intake Conservative care Volume resuscitation Will review CTA w/ attending Diet as tolerated In regards to her elevated AST/ALT this is improving since admission, would continue to trend LFTs. If persistently elevated can have serology. DDX medication induced, low blood flow etc In regards to her PD dilation, consider repeat CT scan w/ contrast if cleared by nephrology Thank you for allowing us to participate in the care of this patient. Please call with any acute changes, questions or concerns. Please see addendum below with additional recommendation from my supervising physician. Admission and Anticipated Discharge Date Admission Date: November 26, 2020 Supervising Physician Co-Signing Physician Notes Attending attestation I have seen, examined this patient, and agree with the findings and above by our mid-level provider ELIAS Bee, with the following additions: - Patient eating breakfast. Abdominal pain improved after volume - No diarrhea, no rectal bleeding - Overall quite frail appearing and weak - CTA reviewed, no overt stenotic lesion, however, non-functional study and if hypovolemic this CT finding likely represent ischemic bowel - Serological work up of AST/ALT - Continue supportive care - Discuss goals of care with family and patient as well as Nephrolog Subjective Pt was seen and evaluated, chart reviewed. Upright in bed on examination this AM. Currently eating breakfast Notes she is pain free. No abd pain currently. No nausea, vomiting. Passing gas but no BMs overnight CTA reviewed and largely unremarkable. Review of Systems Review of Systems: All systems reviewed & are unremarkable except as noted in HPI & below Physical Exam Constitutional: + ill appearing (chronically ill appearing), + thin, + frail appearing, cooperative and comfortable; no acute distress Neck: trachea midline, no thyromegaly Respiratory: normal respiratory effort, lungs clear to auscultation Cardiovascular: Rate/Rhythm: regular rhythm and + tachycardic Heart Sounds: normal S1 and normal S2 Gastrointestinal (Abdomen): Inspection/Auscultation: normal bowel sounds; abdomen not distended Percussion/Palpation: abdomen soft; abdomen nontender, no guarding, abdomen not rigid, no hernia, no abdominal mass and no ascites Skin: no rashes, warm and dry Results & Data ([facility]) Vital Signs (Past 12 Hours) Vital Signs Temp Pulse Resp BP Pulse Ox 12/01/20 07:33 36.5 C 109 H 18 110/66 97 12/01/20 04:24 36.4 C L 121 H 18 123/89 100 11/30/20 23:54 36.3 C L 106 H 18 102/60 97
[2020-12-01] MEDS: HEPARIN SOD 5,000 UNIT/0.5 ML VIAL SQ SCH ×2 (08:52→22:34)
[2020-12-01 08:57] LABS: BUN Creatinine Ratio 6.5 (10-20); Calcium 8.1 mg/dl (8.5-10.1); Creatinine Clr Calc Pharmacy 10.3 ml/min; Est GFR (African American) 13.5 ml/min; Est GFR (Non-African American) 11.7 ml/min; Potassium 4.1 mmol/L (3.5-5.1)
[2020-12-01] MEDS: HEPARIN SOD (PORCINE) 1000 UNIT/ML IV SCH (09:54)
[2020-12-01] MEDS ORDERED: PIPERACILLIN/TAZOBACTAM 3.375 GM in DEXTROSE 5% 100 ML IV SCH (12:00)
[2020-12-01] MEDS: METOPROLOL SUCC 50MG EXT REL TAB PO SCH ×2 (12:42→22:46)
--- NOTE | 2020-12-01 12:48 | Nephrology Progress Note ---
Date of Service December 01, 2020 Assessment & Plan (1) ESRD (end stage renal disease): She is Saturday dialysis patient at [place] tolerated HD today w/ 0.5L UF today; had 1.5L UF on 11/29 next HD for 12/03 or as clinical needs dictate; no anemia meds needed -recommend bmp daily; cbc could be q 48 hrs Please continue all her outpatient medications (2) Pneumatosis intestinalis: As per primary/surgery - for conservative managenent >>ongoing concerns about abd pain and ?sepsis > hence low UF target today Admission and Anticipated Discharge Date Admission Date: November 26, 2020 Subjective seen on rounds at 0725; ongoign weakness, fatigue; abd pain improved somewhat at this point, no sob; not on IVF Review of Systems Review of Systems: All systems reviewed & are unremarkable except as noted in Subjective Physical Exam Constitutional: well developed, + thin, + frail appearing and cooperative Eyes: EOM intact bilaterally ENMT: Ears: no external ear abnormality Nose: no external nose abnormality Mouth: + dry oral mucous membranes Neck: no nuchal rigidity Respiratory: normal respiratory effort Auscultation: + diminished lung sounds Cardiovascular: Rate/Rhythm: + tachycardic and + irregularly irregular Extremities: + edema (trace BLE) Gastrointestinal (Abdomen): Inspection/Auscultation: normal bowel sounds; abdomen not distended Percussion/Palpation: abdomen soft; abdomen nontender Musculoskeletal: Extremities: strength 5/5 throughout Skin: no rashes, warm and dry Neurologic: ochoa, fluent speech, no tremor Psychiatric: Orientation: alert and oriented x 3 Speech: normal rate/rhythm/volume of speech Affect: + flat affect Results & Data ([facility]) Vital Signs (Past 12 Hours) Vital Signs Temp Pulse Pulse Pulse Resp BP BP 12/01/20 12:25 36.4 C L 110 H 110/75 12/01/20 12:14 110 H 109/90 12/01/20 12:00 121 H 110/66 12/01/20 11:40 125 H 106/61 12/01/20 11:20 110 H 96/72 L 12/01/20 11:00 120 H 111/66 12/01/20 10:40 113 H 111/65 12/01/20 10:20 98 H 91/63 L 12/01/20 10:00 81 94/71 L 12/01/20 09:40 122 H 104/72 12/01/20 09:13 91 H 99/60 L 12/01/20 09:05 36.4 C L 110 H 12/01/20 07:33 36.5 C 109 H 18 110/66 12/01/20 04:24 36.4 C L 121 H 18 123/89 Pulse Ox 12/01/20 12:25 12/01/20 12:14 12/01/20 12:00 12/01/20 11:40 12/01/20 11:20 12/01/20 11:00 12/01/20 10:40 12/01/20 10:20 12/01/20 10:00 12/01/20 09:40 12/01/20 09:13 12/01/20 09:05 12/01/20 07:33 97 12/01/20 04:24 100 Laboratory Results 12/01/20 08:00 12/01/20 08:00
--- NOTE | 2020-12-01 14:00 | Electrocardiogram Report ---
Test Reason : Blood Pressure : / mmHG Vent. Rate : 116 BPM Atrial Rate : 087 BPM P-R Int : 000 ms QRS Dur : 090 ms QT Int : 374 ms P-R-T Axes : 000 038 169 degrees QTc Int : 519 ms Atrial fibrillation with rapid ventricular response Cannot rule out Anterior infarct , age undetermined Abnormal ECG When compared with ECG of 25-NOV-2020 23:46, No significant change was found Confirmed by Mannie Shelton ([id number]) on 12/01/2020 1:59:52 PM Referred By: REFERRED SELF Confirmed By:Mannie Shelton
[2020-12-01] MEDS: PIPERACILLIN/TAZOBACTAM 3.375 GM in DEXTROSE 5% 100 ML IV SCH (15:16)
--- NOTE | 2020-12-01 15:17 | Hospitalist Progress Note ---
Date of Service December 01, 2020 Assessment & Plan (1) Abdominal pain: Abdominal pain is after food intake and is described as acute for the past 3-4 weeks. Timing went along with initiation of Remeron which has been stopped. Significant weight loss is present and patient has well-known depression underlying. CT performed on admission but without contrast-reveals pneumatosis intestinalis. No convincing evidence for acute bowel ischemia incl normal stool, intermittent pain, and clear CTA abdomen yesterday. Zosyn possibly helped so unknown source, however, will change or oral cipro flagyl for coverage of a presumed intra-abdominal source. GI requested to see her. (2) Pneumatosis intestinalis: appears to have resolved on updated scan. (3) Abnormal LFTs: possibly secondary to medications (Remeron), which has been stopped. Trending down. Repeat today. (4) Atrial fibrillation: Has A. fib with RVR this morning and tachycardia is common for her. Not been taking any anticoagulation due to risk of fall and bleeding We will continue current medications Tachycardia this morning has improved with metoprolol, still borderline hypotensive. This is a very medically complex dialysis patient. management per cardiology who is following. (5) Severe protein-calorie malnutrition: Significant weight loss, likely multifactorial etiology including multiple comorbidities, severe depression and poor PO intake in recent months. Remeron has been stopped. Still uncertain etiology of recent abdominal pain prompting admission. Failure to thrive picture. (6) Generalized weakness: Poor PO intake, PT/OT evaluation (7) End-stage renal disease on hemodialysis: Has been on hemodialysis and will continue (8) Diabetes mellitus, type II: SSI, minimal insulin required. (9) DVT prophylaxis: start heparin for DVT prevention Full Code Dispo-uncertain at this time. Cont telemetry monitoring. Mishel Valera DO [facility] Hospitalist Admission and Anticipated Discharge Date Admission Date: November 26, 2020 Subjective 85 yo F presented with food aversion and decreased appetite. Reports to me today that she has lost 100 lbs over the past 2 years, and that for months she has had decreased PO intake, reporting epigastric/centralized pain for 30 mins after eating for the past 3 weeks. This abdominal pain continues today. She feels slightly worse since coming in. He started on Zosyn yesterday with some improvement in hemodynamics. Underwent dialysis with 500 cc of ultrafiltrate removed. Daughter is at bedside and assessment reviewed. The patient is still significantly weak but feels she is at her baseline ambulating with a walker.ression and is taking fluoxetine, aripiprazole and was taking remeron which has now been stopped during this hospital stay. Review of Systems Review of Systems: All systems reviewed & are unremarkable except as noted in Subjective Physical Exam Physical Exam: CONSTITUTIONAL: WNWD, vitals as above, generally cachectic EYES: normal conjunctivae, no scleral icterus ENT: external ear and nose normal, mucous membranes are dry NECK: trachea midline RESPIRATORY: clear to auscultation bilaterally, no crackles, rales or wheezes, normal respiratory effort CARDIOVASCULAR: tachy rate and irregular rhythm, S1 and 2 heard without murmurs, gallops or rubs, no JVD, no peripheral edema GASTROINTESTINAL: soft, nontender, nondistended, no guarding MUSCULOSKELETAL: generalized weakness, head is normocephalic and atraumatic SKIN: warm and dry NEUROLOGIC: CN 2-12 grossly intact, no sensory deficit, normal cognition, normal speech with some purposefulness when forming her words PSYCHIATRIC: alert cooperative and oriented to person, place and time. Results & Data Results & Data ([facility]) Vital Signs (Past 12 Hours) Vital Signs Temp Pulse Pulse Pulse Resp BP BP 12/01/20 12:25 36.4 C L 110 H 110/75 12/01/20 12:14 110 H 109/90 12/01/20 12:00 121 H 110/66 12/01/20 11:40 125 H 106/61 12/01/20 11:20 110 H 96/72 L 12/01/20 11:00 120 H 111/66 12/01/20 10:40 113 H 111/65 12/01/20 10:20 98 H 91/63 L 12/01/20 10:00 81 94/71 L 12/01/20 09:40 122 H 104/72 12/01/20 09:13 91 H 99/60 L 12/01/20 09:05 36.4 C L 110 H 12/01/20 07:33 36.5 C 109 H 18 110/66 12/01/20 04:24 36.4 C L 121 H 18 123/89 Pulse Ox 12/01/20 12:25 12/01/20 12:14 12/01/20 12:00 12/01/20 11:40 07/01/21 11:20 12/01/20 11:00 12/01/20 10:40 12/01/20 10:20 12/01/20 10:00 12/01/20 09:40 12/01/20 09:13 12/01/20 09:05 12/01/20 07:33 97 12/01/20 04:24 100 Laboratory Results Short CBC 12/01/20 Range/Units 08:00 WBC 5.46 (4.8-10.8) K/uL Hgb 11.1 L (12.0-16.0) g/dL Hct 36.2 L (37-47) % Plt Count 165 (130-400) K/uL BMP 12/01/20 08:00 Sodium 136 Potassium 4.1 Chloride 103 Carbon Dioxide 26 BUN 22 H Creatinine 3.44 H D Glucose 107 H Calcium 8.1 L Medications Administered Current Inpatient Medications Acetaminophen (Acetaminophen 325 Mg Tab) 650 mg PO Q4H PRN PRN Reason: Pain or Fever Stop: 12/26/20 07:24 Albuterol (Albuterol Hfa 8 Gm Inhaler) 2 puffs INH QID PRN PRN Reason: Wheezing Stop: 12/26/20 07:24 Aripiprazole (Aripiprazole 1 Mg/Ml Oral Soln 150 Ml Btl) 2 mg PO QAM LUZMARIA Stop: 12/26/20 08:59 Last Admin: 12/01/20 08:17 Dose: 2 mg Documented by: Calcium Acetate (Calcium Acetate 667 Mg Cap/Tab) 667 mg PO TIDM LUZMARIA Stop: 12/26/20 07:59 Last Admin: 12/01/20 12:42 Dose: 667 mg Documented by: Clopidogrel Bisulfate (Clopidogrel Bisulfate 75 Mg Tab) 75 mg PO QAM LUZMARIA Stop: 12/26/20 08:59 Last Admin: 12/01/20 08:17 Dose: 75 mg Documented by: Docusate Sodium (Docusate Sodium 100 Mg Cap) 100 mg PO QAM PRN PRN Reason: Constipation Stop: 12/26/20 07:24 Last Admin: 11/26/20 08:23 Dose: 100 mg Documented by: Epoetin Manohar (Epoetin Manohar 4,000 Unit/Ml Vial) 4,000 units IV TODAY@0800 [facility] Stop: 12/01/20 23:59 Last Admin: 12/01/20 09:53 Dose: 4,000 units Documented by: Fluoxetine HCl (Fluoxetine Hcl 20 Mg Cap) 20 mg PO QAM [facility] Stop: 12/26/20 08:59 Last Admin: 12/01/20 08:18 Dose: 20 mg Documented by: Fluoxetine HCl (Fluoxetine Hcl 10 Mg Cap) 10 mg PO QAM [facility] Stop: 12/26/20 08:59 Last Admin: 12/01/20 08:18 Dose: 10 mg Documented by: Heparin Sodium (Porcine) (Heparin Sod 5,000 Unit/0.5 Ml Vial) 5,000 units SQ Q12 [facility] Stop: 12/30/20 10:49 Last Admin: 12/01/20 08:52 Dose: Not Given Documented by: Heparin Sodium (Porcine) (Heparin Sod (Porcine) 1000 Unit/Ml) 1,000 units IV TODAY@0800 [facility] Stop: 12/01/20 23:59 Last Admin: 12/01/20 09:53 Dose: Not Given Documented by: Heparin Sodium (Porcine) (Heparin Sod (Porcine) 1000 Unit/Ml) 400 units IV TODAY@0800,0900,1000 [facility] Stop: 12/01/20 23:59 Last Admin: 12/01/20 09:54 Dose: Not Given Documented by: Piperacillin Sod/Tazobactam (Sod 3.375 gm/ Dextrose) 115 mls @ 28.75 mls/hr IV Q12@0600,1800 [facility]; Protocol Stop: 12/10/20 11:59 Last Admin: 12/01/20 12:47 Dose: 28.8 mls/hr Documented by: Insulin Aspart (Insulin Aspart 100 Units/Ml 3 Ml Pen) 0 units SC ACHS [facility] Stop: 12/26/20 07:29 Last Admin: 12/01/20 12:48 Dose: Not Given Documented by: Levothyroxine Sodium (Levothyroxine Sodium 200 Mcg Tablet) 200 mcg PO DAILYBB [facility] Stop: 12/26/20 07:59 Last Admin: 12/01/20 06:16 Dose: 200 mcg Documented by: Loratadine (Loratadine 10 Mg Tab) [facility] [place] [facility] [place] Stop: 12/26/20 08:59 Last Admin: 12/01/20 08:18 Dose: 10 mg Documented by: Metoprolol Succinate (Metoprolol Succ 50mg Ext Rel Tab) 100 mg PO BID LUZMARIA Stop: 12/26/20 08:59 Last Admin: 12/01/20 12:42 Dose: 100 mg Documented by: Miscellaneous Information (Piperacill/Tazobac Consult Active) 1 ea N/A UD PRN PRN Reason: Consult Stop: 12/30/20 11:54 Nitroglycerin (Nitroglycerin Sl 0.4 Mg/Tab Tab) 0.4 mg SL UD PRN PRN Reason: Chest Pain Stop: 12/26/20 07:24 Ondansetron HCl (Ondansetron Inj 2 Mg/Ml 2 Ml Vial) 4 mg IV Q6H PRN PRN Reason: Nausea Stop: 12/26/20 07:24 Last Admin: 11/28/20 12:30 Dose: 4 mg Documented by: Tramadol HCl (Tramadol Hcl 50 Mg Tablet) 50 mg PO HS PRN PRN Reason: leg pain Stop: 12/26/20 07:24 Vitamin B Complex/Folic Acid (Nephrocaps) 1 cap PO HS LUMZARIA Stop: 12/26/20 20:59 Last Admin: 11/30/20 20:48 Dose: 1 cap Documented by: Vitamin D (Cholecalciferol 1,000 Units 25 Mcg Tab) 5,000 units PO QAM LUZMARIA Stop: 12/26/20 08:59 Last Admin: 12/01/20 08:18 Dose: 5,000 units Documented by: Zinc Sulfate (Zinc Sulfate 220 Mg Capsule) 220 mg PO HS LUZMARIA Stop: 12/26/20 20:59 Last Admin: 11/30/20 20:48 Dose: 220 mg Documented by: (1) Diabetes mellitus, type II Chronic kidney disease stage: stage 3 (moderate) Diabetes mellitus complication detail: with chronic kidney disease Diabetes mellitus complication status: with kidney complications Diabetes mellitus manager terminal insulin use: unspecified manager terminal insulin use status Qualified Code(s): E11.22 - Type 2 diabetes mellitus with diabetic chronic kidney disease; N18.3 - Chronic kidney disease, stage 3 (moderate)
[2020-12-01] MEDS: CIPROFLOXACIN 500 MG TAB PO SCH (22:33)
[2020-12-01] MEDS: NEPHROCAPS PO SCH (22:34)
[2020-12-01] MEDS: metroNIDAZOLE 500 MG TAB PO SCH (22:34)
[2020-12-01] MEDS: ZINC SULFATE 220 MG CAPSULE PO SCH (22:35)
[2020-12-01] MEDS ORDERED: ALBUMIN 25% 12.5 GM/50 ML VIAL IV ONE (22:58)
[2020-12-02] MEDS ORDERED: ALBUMIN 25% 12.5 GM/50 ML VIAL IV ONE (00:18)
[2020-12-02] MEDS: LEVOTHYROXINE SODIUM 200 MCG TABLET PO SCH (05:59)
[2020-12-02] MEDS: CALCIUM ACETATE 667 MG CAP/TAB PO SCH ×4 (07:59→17:28)
[2020-12-02] MEDS: FLUoxetine HCL 20 MG CAP PO SCH (08:00)
[2020-12-02] MEDS: CHOLECALCIFEROL 1,000 UNITS 25 MCG TAB PO SCH (08:00)
[2020-12-02] MEDS: CLOPIDOGREL BISULFATE 75 MG TAB PO SCH (08:00)
[2020-12-02] MEDS: ARIPIprazole 1 MG/ML ORAL SOLN 150 ML BTL PO SCH (08:00)
[2020-12-02] MEDS: LORATADINE 10 MG TAB PO SCH (08:01)
[2020-12-02] MEDS: FLUoxetine HCL 10 MG CAP PO SCH (08:01)
[2020-12-02] MEDS: METOPROLOL SUCC 50MG EXT REL TAB PO SCH ×2 (08:01→20:13)
[2020-12-02] MEDS: metroNIDAZOLE 500 MG TAB PO SCH ×3 (08:01→20:13)
[2020-12-02] MEDS: INSULIN ASPART 100 UNITS/ML 3 ML PEN SC SCH ×4 (08:08→20:15)
--- NOTE | 2020-12-02 08:47 | Gastroenterology Progress Note ---
Date of Service December 02, 2020 Assessment & Plan (1) Abdominal pain: 85 year old w/ chronic anorexia, pain w/ PO and food aversions w/ CT imaging showing intestinal pneumatosis concerning for chronic mesenteric angina/ischemic. Today, having less pain, able to re-initiate PO intake Conservative care Volume resuscitation Will review CTA w/ attending Diet as tolerated In regards to her elevated AST/ALT this is improving since admission, would continue to trend LFTs. If persistently elevated can have serology. DDX medication induced, low blood flow etc In regards to her PD dilation, consider repeat CT scan w/ contrast if cleared by nephrology Thank you for allowing us to participate in the care of this patient. Please call with any acute changes, questions or concerns. Please see addendum below with additional recommendation from my supervising physician. Admission and Anticipated Discharge Date Admission Date: November 26, 2020 Supervising Physician Co-Signing Physician Notes Attending attestation I have seen, examined this patient, and agree with the findings and above by our mid-level provider Ms. Belgica GRIFFIN, with the following additions: - Eating with less to no pain - Follow LFT's - Consider MRCP Subjective Pt was seen and evaluated, chart reviewed. No abdominal pain but does report decreased appetite Is hesitant to take her pills this AM because she notes she became nauseated and vomited after pills yesterday Review of Systems Review of Systems: All systems reviewed & are unremarkable except as noted in HPI & below Physical Exam Constitutional: + ill appearing (chronically ill appearing), + thin, + frail appearing, cooperative and comfortable; no acute distress Neck: trachea midline, no thyromegaly Respiratory: normal respiratory effort, lungs clear to auscultation Cardiovascular: Rate/Rhythm: regular rhythm and + tachycardic Heart Sounds: normal S1 and normal S2 Gastrointestinal (Abdomen): Inspection/Auscultation: normal bowel sounds; abdomen not distended Percussion/Palpation: abdomen soft; abdomen nontender, no guarding, abdomen not rigid, no hernia, no abdominal mass and no ascites Skin: no rashes, warm and dry Results & Data ([facility]) Vital Signs (Past 12 Hours) Vital Signs Temp Pulse Resp BP Pulse Ox 12/02/20 08:35 36.8 C 115 H 18 114/79 98 12/02/20 03:13 36.8 C 114 H 18 113/75 99 12/02/20 00:21 115/73 12/01/20 22:53 36.8 C 116 H 22 83/60 L 98
[2020-12-02] MEDS: HEPARIN SOD 5,000 UNIT/0.5 ML VIAL SQ SCH ×2 (11:25→20:19)
[2020-12-02] MEDS: ONDANSETRON INJ 2 MG/ML 2 ML VIAL IV PRN (12:15)
--- NOTE | 2020-12-02 15:57 | Cardiology Progress Note ---
Date of Service December 02, 2020 Assessment & Plan (1) Atrial fibrillation with tachycardic ventricular rate: Complex patient admitted with acute abdominal issues possible mesenteric ischemia with slowly improving functional status however persistent anorexia and now hypotension with orthostasis, elevated atrial fibrillation ventricular response rates. Recommendations: Echocardiogram without significant change. Patient overall appears dry on examination extremely poor p.o. intake. Would continue current metoprolol dosing though consider slight increase for further rate control if blood pressure will allow. Amiodarone and digoxin relatively contraindicated Contact regarding questions May need to consider parenteral nutrition (2) Pneumatosis intestinalis: Per surgery and GI consultation (3) Abnormal LFTs: (4) End-stage renal disease on hemodialysis: (5) Severe protein-calorie malnutrition: (6) Chronic diastolic CHF (congestive heart failure): (7) Status post mitral valve repair: Admission and Anticipated Discharge Date Admission Date: November 26, 2020 Subjective No acute cardiac complaints. Some nausea this morning overall poor p.o. intake. Did have a bowel movement earlier today and feels better afterwards. No chest pains dizziness or lightheadedness Review of Systems Review of Systems: All systems reviewed & are unremarkable except as noted in Subjective Physical Exam Constitutional: + frail appearing; no acute distress Eyes: PERRL, conjunctivae normal, anicteric sclerae ENMT: external ear and nose normal, oropharynx normal Neck: trachea midline, no thyromegaly Respiratory: normal respiratory effort, lungs clear to auscultation Cardiovascular: Rate/Rhythm: + tachycardic and + irregularly irregular Vessels: no JVD Extremities: no edema Gastrointestinal (Abdomen): Percussion/Palpation: + abdomen tender (Mild on deep palpation) and abdomen soft Musculoskeletal: Extremities: no cyanosis and no clubbing Results & Data ([facility] [place]) Vital Signs (Past 12 Hours) Vital Signs Temp Pulse Pulse Resp BP Pulse Ox 12/02/20 15:02 124 H 12/02/20 12:29 36.9 C 96 H 18 133/82 97 12/02/20 08:35 36.8 C 115 H 18 114/79 98
--- NOTE | 2020-12-02 18:28 | Hospitalist Progress Note ---
Date of Service December 02, 2020 Assessment & Plan (1) Abdominal pain: Abdominal pain is after food intake and is described as acute for the past 3-4 weeks. Timing went along with initiation of Remeron which has been stopped. Significant weight loss is present and patient has well-known depression underlying. CT performed on admission but without contrast-reveals pneumatosis intestinalis. No convincing evidence for acute bowel ischemia incl normal stool, intermittent pain, and clear CTA abdomen yesterday. Some evidence with colitis that is nonspecific and may have been the reason for her decompensation off antibiotics. No diarrhea or bloody stool. Zosyn was switched to Cipro/Flag yl which she is tolerating. (2) Colitis: nonspecific colitis that appears to be improving on serial CT imaging. Patient is tolerating trial antibiotics. (3) Pneumatosis intestinalis: appears to have resolved on updated scan. (4) Abnormal LFTs: possibly secondary to medications (Remeron), which has been stopped. Trending down. Followup as outpatient with PCP. (5) Atrial fibrillation: Persistent afib with some RVR-she is dry and not taking in enough fluids. Ultrafiltration was cut back recently. Will restart IVF carefully overnight and will discuss this with Nephro. Cont to encourage hydration by mouth. Not been taking any anticoagulation due to risk of fall and bleeding We will continue current metoprolol. (6) Severe protein-calorie malnutrition: Significant weight loss, likely multifactorial etiology including multiple comorbidities, severe depression and poor PO intake in recent months. Remeron has been stopped. Still uncertain etiology of recent abdominal pain prompting admission. Failure to thrive picture. Palliative care consult for goals of care as patient is unable to eat. She was very clear with me about her code status being a DNR, which was updated. (7) Generalized weakness: Poor PO intake, PT/OT evaluation-recommend SNF which she and her family are considering. (8) End-stage renal disease on hemodialysis: Has been on hemodialysis and will continue //Sat regimen (9) Diabetes mellitus, type II: SSI, minimal insulin required. (10) DVT prophylaxis: start heparin for DVT prevention Full Code Dispo-uncertain at this time. Possible SNF after the weekend. Mishel Valera DO [facility]ist Admission and Anticipated Discharge Date Admission Date: November 26, 2020 Subjective 85 yo F presented with food aversion and decreased appetite. Reports to me today that she has lost 100 lbs over the past 2 years, and that for months she has had decreased PO intake, reporting epigastric/centralized pain for 30 mins after eating for the past 3 weeks. This abdominal pain continues today. She reports some vomiting after breakfast, which happens intermittently. Tolerating the antibiotics. Daughter at bedside. Feels mom looks OK, better than a couple of days ago. Discussed imaging with radiology-favors ascending colitis as source. GI agrees. Still with dilated pancreative duct on CT, however, there is gas present here which may cause too much artifact for a clear reading on MRCP if performed, per radiologist. Discussed palliative care consult for goals of care, consult placed. Review of Systems Review of Systems: All systems reviewed & are unremarkable except as noted in Subjective Physical Exam Physical Exam: CONSTITUTIONAL: WNWD, vitals as above, generally cachectic EYES: normal conjunctivae, no scleral icterus ENT: external ear and nose normal, mucous membranes are dry NECK: trachea midline RESPIRATORY: clear to auscultation bilaterally, no crackles, rales or wheezes, normal respiratory effort CARDIOVASCULAR: tachy rate and irregular rhythm, S1 and 2 heard without murmurs, gallops or rubs, no JVD, no peripheral edema GASTROINTESTINAL: soft, nontender, nondistended, no guarding MUSCULOSKELETAL: generalized weakness, head is normocephalic and atraumatic SKIN: warm and dry NEUROLOGIC: CN 2-12 grossly intact, no sensory deficit, normal cognition, normal speech with some purposefulness when forming her words PSYCHIATRIC: alert cooperative and oriented to person, place and time. Results & Data Results & Data ([facility]) Vital Signs (Past 12 Hours) Vital Signs Temp Pulse Pulse Resp BP Pulse Ox 12/02/20 16:14 36.7 C 119 H 20 108/74 99 12/02/20 15:02 124 H 12/02/20 12:29 36.9 C 96 H 18 133/82 97 12/02/20 08:35 36.8 C 115 H 18 114/79 98 Medications Administered Current Inpatient Medications Acetaminophen (Acetaminophen 325 Mg Tab) 650 mg PO Q4H PRN PRN Reason: Pain or Fever Stop: 12/26/20 07:24 Albuterol (Albuterol Hfa 8 Gm Inhaler) 2 puffs INH QID PRN PRN Reason: Wheezing Stop: 12/26/20 07:24 Aripiprazole (Aripiprazole 1 Mg/Ml Oral Soln 150 Ml Btl) 2 mg PO QAM [facility] Stop: 12/26/20 08:59 Last Admin: 12/02/20 08:00 Dose: 2 mg Documented by: Calcium Acetate (Calcium Acetate 667 Mg Cap/Tab) 667 mg PO TIDM [facility] Stop: 12/26/20 07:59 Last Admin: 12/02/20 17:28 Dose: Not Given Documented by: Ciprofloxacin (Ciprofloxacin 500 Mg Tab) 500 mg PO HS [facility] Stop: 12/11/20 20:59 Last Admin: 12/01/20 22:33 Dose: 500 mg Documented by: Clopidogrel Bisulfate (Clopidogrel Bisulfate 75 Mg Tab) 75 mg PO QAM [facility] Stop: 12/26/20 08:59 Last Admin: 12/02/20 08:00 Dose: 75 mg Documented by: Docusate Sodium (Docusate Sodium 100 Mg Cap) 100 mg PO QA PRN PRN Reason: Constipation Stop: 12/26/20 07:24 Last Admin: 11/26/20 08:23 Dose: 100 mg Documented by: Fluoxetine HCl (Fluoxetine Hcl 20 Mg Cap) [facility] [place] Stop: 12/26/20 08:59 Last Admin: 12/02/20 08:00 Dose: 20 mg Documented by: Fluoxetine HCl (Fluoxetine Hcl 10 Mg Cap) 10 mg PO QAM [facility] Stop: 12/26/20 08:59 Last Admin: 12/02/20 08:01 Dose: 10 mg Documented by: Heparin Sodium (Porcine) (Heparin Sod 5,000 Unit/0.5 Ml Vial) 5,000 units SQ Q12 [facility] Stop: 12/30/20 10:49 Last Admin: 12/02/20 11:25 Dose: Not Given Documented by: Insulin Aspart (Insulin Aspart 100 Units/Ml 3 Ml Pen) 0 units SC ACHS [facility] Stop: 12/26/20 07:29 Last Admin: 12/02/20 17:27 Dose: Not Given Documented by: Levothyroxine Sodium (Levothyroxine Sodium 200 Mcg Tablet) 200 mcg PO DAILYBB [facility] Stop: 12/26/20 07:59 Last Admin: 12/02/20 05:59 Dose: 200 mcg Documented by: Loratadine (Loratadine 10 Mg Tab) 10 mg PO QAM [facility] Stop: 12/26/20 08:59 Last Admin: 12/02/20 08:01 Dose: 10 mg Documented by: Metoprolol Succinate (Metoprolol Succ 50mg Ext Rel Tab) 100 mg PO BID [facility] Stop: 12/26/20 08:59 Last Admin: 12/02/20 08:01 Dose: 100 mg Documented by: Metronidazole (Metronidazole 500 Mg Tab) 500 mg PO TID [facility] Stop: 12/11/20 20:59 Last Admin: 12/02/20 17:18 Dose: 500 mg Documented by: Nitroglycerin (Nitroglycerin Sl 0.4 Mg/Tab Tab) 0.4 mg SL UD PRN PRN Reason: Chest Pain Stop: 12/26/20 07:24 Ondansetron HCl (Ondansetron Inj 2 Mg/Ml 2 Ml Vial) 4 mg IV Q6H PRN PRN Reason: Nausea Stop: 12/26/20 07:24 Last Admin: 12/02/20 12:15 Dose: 4 mg Documented by: Tramadol HCl (Tramadol Hcl 50 Mg Tablet) 50 mg PO HS PRN PRN Reason: leg pain Stop: 12/26/20 07:24 Vitamin B Complex/Folic Acid (Nephrocaps) 1 cap PO HS [facility] Stop: 12/26/20 20:59 Last Admin: 12/01/20 22:34 Dose: 1 cap Documented by: Vitamin D (Cholecalciferol 1,000 Units 25 Mcg Tab) 5,000 units PO QAM [facility] Stop: 12/26/20 08:59 Last Admin: 12/02/20 08:00 Dose: 5,000 units Documented by: Zinc Sulfate (Zinc Sulfate 220 Mg Capsule) 220 mg PO HS [facility] Stop: 12/26/20 20:59 Last Admin: 12/01/20 22:35 Dose: 220 mg Documented by: (1) Diabetes mellitus, type II Chronic kidney disease stage: stage 3 (moderate) Diabetes mellitus complication detail: with chronic kidney disease Diabetes mellitus complication status: with kidney complications Diabetes mellitus shelter insulin use: u nspecified shelter insulin use status Qualified Code(s): E11.22 - Type 2 diabetes mellitus with diabetic chronic kidney disease; N18.3 - Chronic kidney disease, stage 3 (moderate)
[2020-12-02] MEDS: SODIUM CHLORIDE 0.9% 1000ML 1,000 ML IV SCH (18:38)
[2020-12-02] MEDS: NEPHROCAPS PO SCH (20:13)
[2020-12-02] MEDS: ZINC SULFATE 220 MG CAPSULE PO SCH (20:13)
[2020-12-02] MEDS: CIPROFLOXACIN 500 MG TAB PO SCH (20:14)
[2020-12-03] MEDS: LEVOTHYROXINE SODIUM 200 MCG TABLET PO SCH (06:19)
[2020-12-03 06:51] LABS: BUN Creatinine Ratio 5.7 (10-20); Calcium 8.4 mg/dl (8.5-10.1); Creatinine Clr Calc Pharmacy 10.5 ml/min; Est GFR (African American) 13.9 ml/min; Magnesium 2.1 mg/dl (1.8-2.4); Potassium 3.7 mmol/L (3.5-5.1)
[2020-12-03] MEDS: HEPARIN SOD 5,000 UNIT/0.5 ML VIAL SQ SCH ×2 (08:11→20:44)
[2020-12-03] MEDS: ARIPIprazole 1 MG/ML ORAL SOLN 150 ML BTL PO SCH (08:12)
[2020-12-03] MEDS: metroNIDAZOLE 500 MG TAB PO SCH ×3 (08:12→20:33)
[2020-12-03] MEDS: METOPROLOL SUCC 50MG EXT REL TAB PO SCH ×2 (08:12→20:32)
[2020-12-03] MEDS: CALCIUM ACETATE 667 MG CAP/TAB PO SCH ×4 (08:12→16:31)
[2020-12-03] MEDS: FLUoxetine HCL 20 MG CAP PO SCH (08:12)
[2020-12-03] MEDS: CHOLECALCIFEROL 1,000 UNITS 25 MCG TAB PO SCH (08:12)
[2020-12-03] MEDS: CLOPIDOGREL BISULFATE 75 MG TAB PO SCH (08:12)
[2020-12-03] MEDS: LORATADINE 10 MG TAB PO SCH (08:12)
[2020-12-03] MEDS: FLUoxetine HCL 10 MG CAP PO SCH (08:12)
[2020-12-03] MEDS: INSULIN ASPART 100 UNITS/ML 3 ML PEN SC SCH ×4 (08:15→22:09)
[2020-12-03] MEDS: SODIUM CHLORIDE 0.9% 1000ML 1,000 ML IV SCH (08:29)
[2020-12-03] MEDS ORDERED: SODIUM CHLORIDE 0.9% 1000ML 1,000 ML IV PRN (08:53)
[2020-12-03] MEDS ORDERED: HEPARIN SOD (PORCINE) 1000 UNIT/ML IV ONE (10:00)
[2020-12-03] MEDS: HEPARIN SOD (PORCINE) 1000 UNIT/ML IV SCH ×2 (11:38→13:53)
--- NOTE | 2020-12-03 13:35 | Nephrology Progress Note ---
Date of Service December 03, 2020 Assessment & Plan (1) ESRD (end stage renal disease): She is Saturday dialysis patient at [facility] for HD today w/ goal cut back to 750 mL as HR/ bp allow -goals of care talk as below; next tx tentatively 7/6 -no anemia meds needed -recommend bmp daily; cbc could be q 48 hrs (2) Atrial fibrillation with tachycardic ventricular rate: chronic issue for her and worse here -- not uncommon on HD to have HR 90- 120s w/ barely maintained bp; we walk a very fine line between fluid overload and fluid depletion historically but crrently dry Present on Admission?: Yes (3) Severe protein-calorie malnutrition: longstanding challenge for her, worse recently/this admission; per primary service Present on Admission?: Yes (4) Generalized weakness: chronic issue for her and worse here -- worse w/ her even poorer po intake; we walk a very fine line between fluid overload and fluid depletion but she is currently dry Present on Admission?: Yes (5) Goals of care, counseling/discussion: did talk to pt today about possibility of changing goals of care to stop dialysis; she has always had failure to thrive which has in past weeks worsened; will cont to work on reversible causes but she may also opt soon to withdraw; she is considering it; states one daughter would support this if pt chose it but other not -will continue to discuss -palliative care for goals of care as OP or IP Present on Admission?: No Admission and Anticipated Discharge Date Admission Date: November 26, 2020 Physical Exam Constitutional: well developed, + thin, + frail appearing and cooperative Eyes: EOM intact bilaterally ENMT: Ears: no external ear abnormality Nose: no external nose abnormality Mouth: + dry oral mucous membranes Neck: no nuchal rigidity Respiratory: normal respiratory effort Auscultation: + diminished lung sounds Cardiovascular: Rate/Rhythm: + tachycardic and + irregularly irregular Extremities: + edema (trace BLE) Gastrointestinal (Abdomen): Inspection/Auscultation: normal bowel sounds; abdomen not distended Percussion/Palpation: abdomen soft; abdomen nontender Musculoskeletal: Extremities: strength 5/5 throughout Skin: no rashes, warm and dry Psychiatric: Orientation: alert and oriented x 3 Speech: normal rate/rhythm/volume of speech Affect: + flat affect Results & Data ([facility]) Vital Signs (Past 12 Hours) Vital Signs Temp Pulse Pulse Resp BP BP Pulse Ox 12/03/20 13:04 117 H 109/81 12/03/20 12:40 83 119/70 12/03/20 12:20 120 H 110/76 12/03/20 12:00 120 H 110/76 12/03/20 11:40 82 106/64 12/03/20 11:20 93 H 115/76 12/03/20 11:00 124 H 90/65 L 12/03/20 10:40 109 H 99/61 L 12/03/20 10:20 119 H 96/69 L 12/03/20 10:01 89 99/61 L 12/03/20 09:58 36.4 C L 103 H 12/03/20 07:42 36.4 C L 114 H 20 122/83 98 12/03/20 07:31 118 H 12/03/20 05:32 115 H 12/03/20 03:16 36.5 C 99 H 16 114/76 94
[2020-12-03] MEDS: ONDANSETRON INJ 2 MG/ML 2 ML VIAL IV PRN (13:49)
--- NOTE | 2020-12-03 19:29 | Hospitalist Progress Note ---
Date of Service December 03, 2020 Assessment & Plan (1) Abdominal pain: Abdominal pain is after food intake and is described as acute for the past 3-4 weeks. Timing went along with initiation of Remeron which has been stopped. Significant weight loss is present and patient has well-known underlying depression that is likely contributing. CT performed on admission but without contrast-reveals pneumatosis intestinalis. No convincing evidence for acute bowel ischemia incl normal stool, intermittent pain, and clear CTA abdomen days later. Some evidence with nonspecific colitis which may have been the reason for her decompensation off antibiotics. No diarrhea or bloody stool. Zosyn was switched to Cipro/Flagyl which she is tolerating. (2) Colitis: nonspecific colitis that appears to be improving on serial CT imaging. Patient is tolerating trial antibiotics. (3) Pneumatosis intestinalis: appears to have resolved on updated scan. (4) Abnormal LFTs: possibly secondary to medications (Remeron), which has been stopped. Trending down. Followup as outpatient with PCP. (5) Atrial fibrillation: Persistent afib with some RVR-she is dry and not taking in enough fluids. Ultrafiltration was cut back recently. After discussing additional IVF with Nephrology, this was thought best to avoid. In the past she has gotten swollen and this has lead to more aggressive measures to get fluid off of her through UF. Per Nephrology, she appears to be at her baseline hemodynamically including periods of hypotension and tachycardia. She has been seen in the Cardiology clinic for the past 6 months with recent adjustments in her beta opal. She was transitioned from Coreg to Metoprolol in Jun 2020 and titrated up to her current dose in October 2020. She remains tachycardic with intermittent heart rates in the 120-130s. Cont to encourage hydration by mouth. Not been taking any anticoagulation due to risk of fall and bleeding (6) Severe protein-calorie malnutrition: Significant weight loss, likely multifactorial etiology including multiple comorbidities, severe depression and poor PO intake in recent months. Remeron has been stopped. Still uncertain etiology of recent abdominal pain prompting admission. Failure to thrive picture. Palliative care consult for goals of care as patient is unable to eat. She was very clear with me about her code status being a DNR, which was updated. (7) Generalized weakness: Poor PO intake, PT/OT evaluation-recommend SNF which she and her family are considering. (8) End-stage renal disease on hemodialysis: Has been on hemodialysis and will continue Tues/Thurs/Sat regimen (9) Diabetes mellitus, type II: SSI, minimal insulin required. (10) DVT prophylaxis: start heparin for DVT prevention Full Code Dispo-palliative care consulted for goals of care. She is a confirmed DNR as of this admission. Will likely transition her to SNF for a short term stay at rehab as a transition to home. [facility] Hospital[facility] Admission and Anticipated Discharge Date Admission Date: November 26, 2020 Subjective 85 yo F presented with food aversion and decreased appetite. Has experienced 100 lbs over the past 2 years, and that for months she has had decreased PO intake, reporting epigastric/centralized pain for 30 mins after eating for the past 3 weeks. This abdominal pain continues today just after eating. Denies vomiting. Feels slightly better. No real symptoms otherwise. Review of Systems Review of Systems: All systems reviewed & are unremarkable except as noted in Subjective Physical Exam Physical Exam: CONSTITUTIONAL: WNWD, vitals as above, generally cachectic EYES: normal conjunctivae, no scleral icterus ENT: external ear and nose normal, mucous membranes are dry NECK: trachea midline RESPIRATORY: clear to auscultation bilaterally, no crackles, rales or wheezes, normal respiratory effort CARDIOVASCULAR: tachy rate and irregular rhythm, S1 and 2 heard without murmurs, gallops or rubs, no JVD, no peripheral edema GASTROINTESTINAL: soft, nontender, nondistended, no guarding MUSCULOSKELETAL: generalized weakness, head is normocephalic and atraumatic SKIN: warm and dry NEUROLOGIC: CN 2-12 grossly intact, no sensory deficit, normal cognition, normal speech with some purposefulness when forming her words PSYCHIATRIC: alert cooperative and oriented to person, place and time. Results & Data Results & Data ([facility]) Vital Signs (Past 12 Hours) Vital Signs Temp Pulse Pulse Pulse Resp BP BP 12/03/20 15:43 36.8 C 86 20 104/68 12/03/20 14:27 36.4 C L 115 H 107/77 12/03/20 13:20 117 H 104/81 12/03/20 13:04 117 H 109/81 12/03/20 12:40 83 119/70 12/03/20 12:20 120 H 110/76 12/03/20 12:00 120 H 110/76 12/03/20 11:40 82 106/64 12/03/20 11:20 93 H 115/76 12/03/20 11:00 124 H 90/65 L 12/03/20 10:40 109 H 99/61 L 12/03/20 10:20 119 H 96/69 L 12/03/20 10:01 89 99/61 L 12/03/20 09:58 36.4 C L 103 H 12/03/20 07:42 36.4 C L 114 H 20 122/83 12/03/20 07:31 118 H Pulse Ox 12/03/20 15:43 96 12/03/20 14:27 12/03/20 13:20 12/03/20 13:04 12/03/20 12:40 12/03/20 12:20 12/03/20 12:00 12/03/20 11:40 12/03/20 11:20 12/03/20 11:00 12/03/20 10:40 12/03/20 10:20 12/03/20 10:01 12/03/20 09:58 12/03/20 07:42 98 12/03/20 07:31 Laboratory Results BMP 12/03/20 05:45 Sodium 139 Potassium 3.7 Chloride 108 H Carbon Dioxide 25 BUN 19 H Creatinine 3.37 H Glucose 132 H Calcium 8.4 L Medications Administered Current Inpatient Medications Acetaminophen (Acetaminophen 325 Mg Tab) 650 mg PO Q4H PRN PRN Reason: Pain or Fever Stop: 12/26/20 07:24 Albuterol (Albuterol Hfa 8 Gm Inhaler) 2 puffs INH QID PRN PRN Reason: Wheezing Stop: 12/26/20 07:24 Aripiprazole (Aripiprazole 1 Mg/Ml Oral Soln 150 Ml Btl) 2 mg PO QAM [facility] Stop: 12/26/20 08:59 Last Admin: 12/03/20 08:12 Dose: 2 mg Documented by: Calcium Acetate (Calcium Acetate 667 Mg Cap/Tab) 667 mg PO TIDM [facility] Stop: 12/26/20 07:59 Last Admin: 12/03/20 16:31 Dose: Not Given Documented by: Ciprofloxacin (Ciprofloxacin 500 Mg Tab) 500 mg PO HS [facility] Stop: 12/11/20 20:59 Last Admin: 12/02/20 20:14 Dose: 500 mg Documented by: Clopidogrel Bisulfate (Clopidogrel Bisulfate 75 Mg Tab) 75 mg PO QAM [facility] Stop: 12/26/20 08:59 Last Admin: 12/03/20 08:12 Dose: 75 mg Documented by: Docusate Sodium (Docusate Sodium 100 Mg Cap) 100 mg PO QA PRN PRN Reason: Constipation Stop: 12/26/20 07:24 Last Admin: 11/26/20 08:23 Dose: 100 mg Documented by: Fluoxetine HCl (Fluoxetine Hcl 20 Mg Cap) 20 mg PO QAM [facility] Stop: 12/26/20 08:59 Last Admin: 12/03/20 08:12 Dose: 20 mg Documented by: Fluoxetine HCl (Fluoxetine Hcl 10 Mg Cap) [facility] [place]: 12/26/20 08:59 Last Admin: 12/03/20 08:12 Dose: 10 mg Documented by: Heparin Sodium (Porcine) (Heparin Sod 5,000 Unit/0.5 Ml Vial) 5,000 units SQ Q12 [facility] Stop: 12/30/20 10:49 Last Admin: 12/03/20 08:11 Dose: 5,000 units Documented by: Insulin Aspart (Insulin Aspart 100 Units/Ml 3 Ml Pen) 0 units SC ACHS [facility] Stop: 12/26/20 07:29 Last Admin: 12/03/20 17:33 Dose: Not Given Documented by: Levothyroxine Sodium (Levothyroxine Sodium 200 Mcg Tablet) 200 mcg PO DAILYBB [facility] Stop: 12/26/20 07:59 Last Admin: 12/03/20 06:19 Dose: 200 mcg Documented by: Loratadine (Loratadine 10 Mg Tab) 10 mg PO QAM [facility] Stop: 12/26/20 08:59 Last Admin: 12/03/20 08:12 Dose: 10 mg Documented by: Metoprolol Succinate (Metoprolol Succ 50mg Ext Rel Tab) 100 mg PO BID [facility] Stop: 12/26/20 08:59 Last Admin: 12/03/20 08:12 Dose: 100 mg Documented by: Metronidazole (Metronidazole 500 Mg Tab) 500 mg PO TID [facility] Stop: 12/11/20 20:59 Last Admin: 12/03/20 14:57 Dose: 500 mg Documented by: Nitroglycerin (Nitroglycerin Sl 0.4 Mg/Tab Tab) 0.4 mg SL UD PRN PRN Reason: Chest Pain Stop: 12/26/20 07:24 Ondansetron HCl (Ondansetron Inj 2 Mg/Ml 2 Ml Vial) 4 mg IV Q6H PRN PRN Reason: Nausea Stop: 12/26/20 07:24 Last Admin: 12/03/20 13:49 Dose: 4 mg Documented by: Tramadol HCl (Tramadol Hcl 50 Mg Tablet) 50 mg PO HS PRN PRN Reason: leg pain Stop: 12/26/20 07:24 Vitamin B Complex/Folic Acid (Nephrocaps) 1 cap PO HS [facility] Stop: 12/26/20 20:59 Last Admin: 12/02/20 20:13 Dose: 1 cap Documented by: Vitamin D (Cholecalciferol 1,000 Units 25 Mcg Tab) 5,000 units PO QAM [facility] Stop: 12/26/20 08:59 Last Admin: 12/03/20 08:12 Dose: 5,000 units Documented by: Zinc Sulfate (Zinc Sulfate 220 Mg Capsule) 220 mg PO HS [facility] Stop: 12/26/20 20:59 Last Admin: 12/02/20 20:13 Dose: 220 mg Documented by: (1) Diabetes mellitus, type II Chronic kidney disease stage: stage 3 (moderate) Diabetes mellitus complication detail: with chronic kidney disease Diabetes mellitus complication status: with kidney complications Diabetes mellitus half-way insulin use: unspecified half-way insulin use status Qualified Code(s): E11.22 - Type 2 diabetes mellitus with diabetic chronic kidney disease; N18.3 - Chronic kidney disease, stage 3 (moderate)
[2020-12-03] MEDS: ZINC SULFATE 220 MG CAPSULE PO SCH (20:33)
[2020-12-03] MEDS: NEPHROCAPS PO SCH (20:34)
[2020-12-03] MEDS: CIPROFLOXACIN 500 MG TAB PO SCH (20:35)
[2020-12-03] MEDS ORDERED: LOPERAMIDE HCL 2 MG CAP PO STA (23:26)
[2020-12-04] MEDS: LEVOTHYROXINE SODIUM 200 MCG TABLET PO SCH (06:07)
[2020-12-04] MEDS: INSULIN ASPART 100 UNITS/ML 3 ML PEN SC SCH ×4 (08:48→21:54)
[2020-12-04] MEDS: CALCIUM ACETATE 667 MG CAP/TAB PO SCH ×3 (08:48→17:19)
[2020-12-04] MEDS: CLOPIDOGREL BISULFATE 75 MG TAB PO SCH (10:11)
[2020-12-04] MEDS: LORATADINE 10 MG TAB PO SCH (10:13)
[2020-12-04] MEDS: FLUoxetine HCL 20 MG CAP PO SCH (10:13)
[2020-12-04] MEDS: ARIPIprazole 1 MG/ML ORAL SOLN 150 ML BTL PO SCH (10:13)
[2020-12-04] MEDS: FLUoxetine HCL 10 MG CAP PO SCH (10:13)
[2020-12-04] MEDS: CHOLECALCIFEROL 1,000 UNITS 25 MCG TAB PO SCH (10:13)
[2020-12-04] MEDS: metroNIDAZOLE 500 MG TAB PO SCH ×3 (10:14→20:29)
[2020-12-04] MEDS: METOPROLOL SUCC 50MG EXT REL TAB PO SCH ×2 (10:15→20:32)
[2020-12-04] MEDS: HEPARIN SOD 5,000 UNIT/0.5 ML VIAL SQ SCH ×2 (10:16→20:33)
--- NOTE | 2020-12-04 15:52 | Hospitalist Progress Note ---
Date of Service December 04, 2020 Assessment & Plan (1) Abdominal pain: Abdominal pain is after food intake and is described as acute for the past 3-4 weeks. Timing went along with initiation of Remeron which has been stopped. Significant weight loss is present and patient has well-known underlying depression that is likely contributing. CT performed on admission but without contrast-reveals pneumatosis intestinalis. No convincing evidence for acute bowel ischemia incl normal stool, intermittent pain, and clear CTA abdomen days later. Some evidence with nonspecific colitis which may have been the reason for her decompensation off antibiotics. (2) Colitis: nonspecific colitis that appears to be improving on serial CT imaging. Patient is tolerating trial antibiotics. Will stop these now after 8-9 days and evidence of some diarrhea. (3) Pneumatosis intestinalis: appears to have resolved on updated scan. (4) Abnormal LFTs: possibly secondary to medications (Remeron), which has been stopped. Trending down. Followup as outpatient with PCP. (5) Atrial fibrillation: Persistent afib with some RVR-she is dry and not taking in enough fluids. Ultrafiltration was cut back recently. After discussing additional IVF with Nephrology, this was thought best to avoid. In the past she has gotten swollen and this has lead to more aggressive measures to get fluid off of her through UF. Per Nephrology, she appears to be at her baseline hemodynamically including periods of hypotension and tachycardia. She has been seen in the Cardiology clinic for the past 6 months with recent adjustments in her beta opal. She was transitioned from Coreg to Metoprolol in Jun 2020 and titrated up to her current dose in October 2020. She remains tachycardic with intermittent heart rates in the 120-130s. Cont to encourage hydration by mouth. Not been taking any anticoagulation due to risk of fall and bleeding (6) Severe protein-calorie malnutrition: Significant weight loss, likely multifactorial etiology including multiple comorbidities, severe depression and poor PO intake in recent months. Remeron has been stopped. Still uncertain etiology of recent abdominal pain prompting admission. Failure to thrive picture. Palliative care consult for goals of care as patient is unable to eat. She was very clear with me about her code status being a DNR, which was updated. (7) Generalized weakness: Poor PO intake, PT/OT evaluation-recommend SNF which she and her family are considering. (8) End-stage renal disease on hemodialysis: Has been on hemodialysis and will continue //Sat regimen (9) Diabetes mellitus, type II: SSI, minimal insulin required. (10) DVT prophylaxis: heparin Full Code Dispo-palliative care consulted for goals of care. Started this discussion with several of her children over the weekend. She is a confirmed DNR as of this admission. Will likely transition her to SNF for a short term stay at rehab as a transition to home. Mishel Valera DO [facility] Hospitalist Admission and Anticipated Discharge Date Admission Date: November 26, 2020 Subjective 85 yo F presented with food aversion and decreased appetite. Has experienced 1 00 lbs over the past 2 years, and that for months she has had decreased PO intake, reporting epigastric/centralized pain for 30 mins after eating for the past 3 weeks. This abdominal pain continues today just after eating. Denies vomiting. Feels slightly better. No real symptoms otherwise. Discussed case with fourth child-we discussed care home goals including what to do if she continues to decline eating. Explored the idea of marinol as an appetite stimulant. Discussed multi-treatment aspect of depression and that the messer is not replacing the lost Remeron. Daughter verbalized understanding. Formal palliative discussion for goals of care after the holiday weekend and will proceed to SNF as a transition to home. Review of Systems Review of Systems: All systems reviewed & are unremarkable except as noted in Subjective Physical Exam Physical Exam: CONSTITUTIONAL: WNWD, vitals as above, generally cachectic EYES: normal conjunctivae, no scleral icterus ENT: external ear and nose normal, mucous membranes are dry NECK: trachea midline RESPIRATORY: clear to auscultation bilaterally, no crackles, rales or wheezes, normal respiratory effort CARDIOVASCULAR: tachy rate and irregular rhythm, S1 and 2 heard without murmurs, gallops or rubs, no JVD, no peripheral edema GASTROINTESTINAL: soft, nontender, nondistended, no guarding MUSCULOSKELETAL: generalized weakness, head is normocephalic and atraumatic SKIN: warm and dry NEUROLOGIC: CN 2-12 grossly intact, no sensory deficit, normal cognition, normal speech with some purposefulness when forming her words PSYCHIATRIC: alert cooperative and oriented to person, place and time. Results & Data Results & Data ([facility]) Vital Signs (Past 12 Hours) Vital Signs Temp Pulse Pulse Resp BP Pulse Ox 12/04/20 15:12 130 H 12/04/20 14:56 36.6 C 119 H 20 100/70 97 12/04/20 12:06 36.4 C L 75 20 108/63 96 12/04/20 10:14 130 H 119/71 12/04/20 08:20 36.5 C 86 20 95/66 L 94 12/04/20 07:00 135 H Medications Administered Current Inpatient Medications Acetaminophen (Acetaminophen 325 Mg Tab) 650 mg PO Q4H PRN PRN Reason: Pain or Fever Stop: 12/26/20 07:24 Albuterol (Albuterol Hfa 8 Gm Inhaler) 2 puffs INH QID PRN PRN Reason: Wheezing Stop: 12/26/20 07:24 Aripiprazole (Aripiprazole 1 Mg/Ml Oral Soln 150 Ml Btl) 2 mg PO QAM [facility] Stop: 12/26/20 08:59 Last Admin: 12/04/20 10:13 Dose: Not Given Documented by: Calcium Acetate (Calcium Acetate 667 Mg Cap/Tab) 667 [facility] [place] [facility] Stop: 12/26/20 07:59 Last Admin: 12/04/20 11:46 Dose: Not Given Documented by: Ciprofloxacin (Ciprofloxacin 500 Mg Tab) 500 mg PO [facility] Stop: 12/11/20 20:59 Last Admin: 12/03/20 20:35 Dose: 500 mg Documented by: Clopidogrel Bisulfate (Clopidogrel Bisulfate 75 Mg Tab) 75 mg PO QAM [facility] Stop: 12/26/20 08:59 Last Admin: 12/04/20 10:11 Dose: 75 mg Documented by: Docusate Sodium (Docusate Sodium 100 Mg Cap) 100 mg PO QAM PRN PRN Reason: Constipation Stop: 12/26/20 07:24 Last Admin: 11/26/20 08:23 Dose: 100 mg Documented by: Fluoxetine HCl (Fluoxetine Hcl 20 Mg Cap) [facility] [place]: 12/26/20 08:59 Last Admin: 12/04/20 10:13 Dose: Not Given Documented by: Fluoxetine HCl (Fluoxetine Hcl 10 Mg Cap) 10 mg PO QAM [facility] Stop: 12/26/20 08:59 Last Admin: 12/04/20 10:13 Dose: Not Given Documented by: Heparin Sodium (Porcine) (Heparin Sod 5,000 Unit/0.5 Ml Vial) 5,000 units SQ Q12 [facility] Stop: 12/30/20 10:49 Last Admin: 12/04/20 10:16 Dose: 5,000 units Documented by: Insulin Aspart (Insulin Aspart 100 Units/Ml 3 Ml Pen) 0 units SC ACHS [facility] Stop: 12/26/20 07:29 Last Admin: 12/04/20 12:08 Dose: Not Given Documented by: Levothyroxine Sodium (Levothyroxine Sodium 200 Mcg Tablet) 200 mcg PO DAILYBB [facility] Stop: 12/26/20 07:59 Last Admin: 12/04/20 06:07 Dose: 200 mcg Documented by: Loratadine (Loratadine 10 Mg Tab) 10 mg PO QAM [facility] Stop: 12/26/20 08:59 Last Admin: 12/04/20 10:13 Dose: Not Given Documented by: Metoprolol Succinate (Metoprolol Succ 50mg Ext Rel Tab) 100 mg PO BID [facility] Stop: 12/26/20 08:59 Last Admin: 12/04/20 10:15 Dose: 100 mg Documented by: Metronidazole (Metronidazole 500 Mg Tab) 500 mg PO TID [facility] Stop: 12/11/20 20:59 Last Admin: 12/04/20 13:09 Dose: 500 mg Documented by: Nitroglycerin (Nitroglycerin Sl 0.4 Mg/Tab Tab) 0.4 mg SL UD PRN PRN Reason: Chest Pain Stop: 12/26/20 07:24 Ondansetron HCl (Ondansetron Inj 2 Mg/Ml 2 Ml Vial) 4 mg IV Q6H PRN PRN Reason: Nausea Stop: 12/26/20 07:24 Last Admin: 12/03/20 13:49 Dose: 4 mg Documented by: Tramadol HCl (Tramadol Hcl 50 Mg Tablet) 50 mg PO HS PRN PRN Reason: leg pain Stop: 12/26/20 07:24 Vitamin B Complex/Folic Acid (Nephrocaps) 1 cap PO HS [facility] Stop: 12/26/20 20:59 Last Admin: 12/03/20 20:34 Dose: 1 cap Documented by: Vitamin D (Cholecalciferol 1,000 Units 25 Mcg Tab) 5,000 units PO QAM [facility] Stop: 12/26/20 08:59 Last Admin: 12/04/20 10:13 Dose: Not Given Documented by: Zinc Sulfate (Zinc Sulfate 220 Mg Capsule) 220 mg PO HS [facility] Stop: 12/26/20 20:59 Last Admin: 12/03/20 20:33 Dose: 220 mg Documented by: (1) Diabetes mellitus, type II Chronic kidney disease stage: stage 3 (moderate) Diabetes mellitus complication detail: with chronic kidney disease Diabetes mellitus complication status: with kidney complications Diabetes mellitus care home insulin use: unspecified care home insulin use status Qualified Code(s): E11.22 - Type 2 diabetes mellitus with diabetic chronic kidney disease; N18.3 - Chronic kidney disease, stage 3 (moderate)
[2020-12-04] MEDS: NEPHROCAPS PO SCH (20:29)
[2020-12-04] MEDS: ZINC SULFATE 220 MG CAPSULE PO SCH (20:29)
[2020-12-04] MEDS: CIPROFLOXACIN 500 MG TAB PO SCH (20:31)
[2020-12-05] MEDS: ONDANSETRON INJ 2 MG/ML 2 ML VIAL IV PRN ×4 (00:41→22:49)
[2020-12-05] MEDS: LEVOTHYROXINE SODIUM 200 MCG TABLET PO SCH (05:57)
[2020-12-05 07:57] LABS: BUN Creatinine Ratio 4.9 (10-20); Calcium 8.7 mg/dl (8.5-10.1); Creatinine Clr Calc Pharmacy 10.3 ml/min; Est GFR (African American) 13.7 ml/min; Est GFR (Non-African American) 11.8 ml/min; Potassium 4.4 mmol/L (3.5-5.1)
[2020-12-05 08:00] LABS: Hemoglobin 11.1 g/dL (12.0-16.0); Mean Corpuscular Hemoglobin 31.5 pg (25-34); Mean Corpuscular Volume 105.1 fL (80-100); Mean Platelet Volume 10.3 fL (7.4-10.4); Nucleated RBC # (auto) 0.07 K/uL (0-0); Platelet Count 159 K/uL (130-400); RDW Coefficient of Variation 18.5 % (11.5-14.5); RDW Standard Deviation 69.1 fL (36.4-46.3); Red Blood Count 3.52 M/uL (4.2-5.4); White Blood Count 6.85 K/uL (4.8-10.8)
[2020-12-05] MEDS: INSULIN ASPART 100 UNITS/ML 3 ML PEN SC SCH ×4 (08:33→21:09)
[2020-12-05] MEDS: LORATADINE 10 MG TAB PO SCH (08:40)
[2020-12-05] MEDS: metroNIDAZOLE 500 MG TAB PO SCH (08:40)
[2020-12-05] MEDS: CHOLECALCIFEROL 1,000 UNITS 25 MCG TAB PO SCH (08:40)
[2020-12-05] MEDS: CALCIUM ACETATE 667 MG CAP/TAB PO SCH ×3 (08:40→16:58)
[2020-12-05] MEDS: FLUoxetine HCL 20 MG CAP PO SCH (08:41)
[2020-12-05] MEDS: FLUoxetine HCL 10 MG CAP PO SCH (08:41)
[2020-12-05] MEDS: CLOPIDOGREL BISULFATE 75 MG TAB PO SCH (08:41)
[2020-12-05] MEDS: HEPARIN SOD 5,000 UNIT/0.5 ML VIAL SQ SCH ×2 (08:41→21:34)
[2020-12-05] MEDS: METOPROLOL SUCC 50MG EXT REL TAB PO SCH ×2 (08:44→21:06)
[2020-12-05] MEDS: ARIPIprazole 1 MG/ML ORAL SOLN 150 ML BTL PO SCH (09:17)
--- NOTE | 2020-12-05 17:57 | Hospitalist Progress Note ---
Date of Service December 05, 2020 Assessment & Plan (1) Abdominal pain: Abdominal pain is after food intake and is described as acute for the past 3-4 weeks. Timing went along with initiation of Remeron which has been stopped. Significant weight loss is present and patient has well-known underlying depression that is likely contributing. CT performed on admission but without contrast-reveals pneumatosis intestinalis. No convincing evidence for acute bowel ischemia incl normal stool, intermittent pain, and clear CTA abdomen days later. Some evidence with nonspecific colitis which may have been the reason for her decompensation off antibiotics. Starting trial of marinol after reviewing risks and benefits with patient. (2) Colitis: nonspecific colitis that appears to be improving on serial CT imaging. Completed course of antibiotics and is feeling better from this standpoint. (3) Pneumatosis intestinalis: appears to have resolved on updated scan. (4) Abnormal LFTs: possibly secondary to medications (Remeron), which has been stopped. Trending down. Followup as outpatient with PCP. (5) Atrial fibrillation: Persistent afib with some RVR-she is dry and not taking in enough fluids. Ultrafiltration was cut back recently. After discussing additional IVF with Nephrology, this was thought best to avoid. In the past she has gotten swollen and this has lead to more aggressive measures to get fluid off of her through UF. Per Nephrology, she appears to be at her baseline hemodynamically including periods of hypotension and tachycardia. She has been seen in the Cardiology clinic for the past 6 months with recent adjustments in her beta opal. She was transitioned from Coreg to Metoprolol in Jun 2020 and titrated up to her current dose in October 2020. She remains tachycardic with intermittent heart rates in the 120-130s. Cont to encourage hydration by mouth. Not been taking any anticoagulation due to risk of fall and bleeding (6) Severe protein-calorie malnutrition: Significant weight loss, likely multifactorial etiology including multiple comorbidities, severe depression and poor PO intake in recent months. Remeron has been stopped. Still uncertain etiology of recent abdominal pain prompting admission. Failure to thrive picture. Palliative care consult for goals of care as patient is unable to eat. She was very clear with me about her code status being a DNR, which was updated. (7) Generalized weakness: Poor PO intake, PT/OT evaluation-recommend SNF which she and her family are considering. (8) End-stage renal disease on hemodialysis: Has been on hemodialysis and will continue //Sat regimen (9) Diabetes mellitus, type II: SSI, minimal insulin required. (10) DVT prophylaxis: heparin Full Code Dispo-palliative care consulted for goals of care. Started this discussion with several of her children over the weekend. She is a confirmed DNR as of this admission. Will likely transition her to SNF for a short term stay at rehab as a transition to home. Mishel Valera DO [facility] Hospitalist Admission and Anticipated Discharge Date Admission Date: November 26, 2020 Subjective 85 yo F presented with food aversion and decreased appetite. Has experienced 100 lbs over the past 2 years, and that for months she has had decreased PO intake, reporting epigastric/centralized pain for 30 mins after eating for the past 3 weeks. This abdominal pain continues today just after eating. Denies vomiting. Feels slightly better. No real symptoms otherwise. She is at her baseline. We discussed risks and benefits of marinol today and she would like to go with a trial of this. With her depression, will need to watch closely for AMS or psychosis, etc. Review of Systems Review of Systems: All systems reviewed & are unremarkable except as noted in Subjective Physical Exam Physical Exam: CONSTITUTIONAL: WNWD, vitals as above, generally cachectic EYES: normal conjunctivae, no scleral icterus ENT: external ear and nose normal, mucous membranes are dry NECK: trachea midline RESPIRATORY: clear to auscultation bilaterally, no crackles, rales or wheezes, normal respiratory effort CARDIOVASCULAR: tachy rate and irregular rhythm, S1 and 2 heard without murmurs, gallops or rubs, no JVD, no peripheral edema GASTROINTESTINAL: soft, nontender, nondistended, no guarding MUSCULOSKELETAL: generalized weakness, head is normocephalic and atraumatic SKIN: warm and dry NEUROLOGIC: CN 2-12 grossly intact, no sensory deficit, normal cognition, normal speech with some purposefulness when forming her words PSYCHIATRIC: alert cooperative and oriented to person, place and time. Results & Data Results & Data ([facility]) Vital Signs (Past 12 Hours) Vital Signs Temp Pulse Pulse Resp BP Pulse Ox 12/05/20 14:55 36.6 C 77 20 92/59 L 93 12/05/20 11:23 36.4 C L 67 20 94/69 L 96 12/05/20 07:58 36.5 C 119 H 20 91/62 L 100 12/05/20 07:38 125 H Laboratory Results Short CBC 12/05/20 Range/Units 06:41 WBC 6.85 (4.8-10.8) K/uL Hgb 11.1 L (12.0-16.0) g/dL Hct 37.0 (37-47) % Plt Count 159 (130-400) K/uL BMP 12/05/20 06:41 Sodium 138 Potassium 4.4 Chloride 105 Carbon Dioxide 27 BUN 17 Creatinine 3.41 H Glucose 133 H Calcium 8.7 Medications Administered Current Inpatient Medications Acetaminophen (Acetaminophen 325 Mg Tab) 650 mg PO Q4H PRN PRN Reason: Pain or Fever Stop: 12/26/20 07:24 Albuterol (Albuterol Hfa 8 Gm Inhaler) 2 puffs INH QID PRN PRN Reason: Wheezing Stop: 12/26/20 07:24 Aripiprazole (Aripiprazole 1 Mg/Ml Oral Soln 150 Ml Btl) [facility] [place] Stop: 12/26/20 08:59 Last Admin: 12/05/20 09:17 Dose: Not Given Documented by: Calcium Acetate (Calcium Acetate 667 Mg Cap/Tab) 667 mg PO TIDM [facility] Stop: 12/26/20 07:59 Last Admin: 12/05/20 16:58 Dose: Not Given Documented by: Clopidogrel Bisulfate (Clopidogrel Bisulfate 75 Mg Tab) 75 mg PO QAM [facility] Stop: 12/26/20 08:59 Last Admin: 12/05/20 08:41 Dose: 75 mg Documented by: Docusate Sodium (Docusate Sodium 100 Mg Cap) 100 mg PO QAM PRN PRN Reason: Constipation Stop: 12/26/20 07:24 Last Admin: 11/26/20 08:23 Dose: 100 mg Documented by: Fluoxetine HCl (Fluoxetine Hcl 20 Mg Cap) [facility] [place] Stop: 12/26/20 08:59 Last Admin: 12/05/20 08:41 Dose: 20 mg Documented by: Fluoxetine HCl (Fluoxetine Hcl 10 Mg Cap) 10 mg PO QAM [facility] Stop: 12/26/20 08:59 Last Admin: 12/05/20 08:41 Dose: 10 mg Documented by: Heparin Sodium (Porcine) (Heparin Sod 5,000 Unit/0.5 Ml Vial) 5,000 units SQ Q12 [facility] Stop: 12/30/20 10:49 Last Admin: 12/05/20 08:41 Dose: 5,000 units Documented by: Insulin Aspart (Insulin Aspart 100 Units/Ml 3 Ml Pen) 0 units SC ACHS [facility] Stop: 12/26/20 07:29 Last Admin: 12/05/20 16:57 Dose: Not Given Documented by: Levothyroxine Sodium (Levothyroxine Sodium 200 Mcg Tablet) 200 mcg PO DAILYBB [facility] Stop: 12/26/20 07:59 Last Admin: 12/05/20 05:57 Dose: 200 mcg Documented by: Loratadine (Loratadine 10 Mg Tab) 10 mg PO QAM [facility] Stop: 12/26/20 08:59 Last Admin: 12/05/20 08:40 Dose: 10 mg Documented by: Metoprolol Succinate (Metoprolol Succ 50mg Ext Rel Tab) 100 mg PO BID [facility] Stop: 12/26/20 08:59 Last Admin: 12/05/20 08:44 Dose: 100 mg Documented by: Nitroglycerin (Nitroglycerin Sl 0.4 Mg/Tab Tab) 0.4 mg SL UD PRN PRN Reason: Chest Pain Stop: 12/26/20 07:24 Ondansetron HCl (Ondansetron Inj 2 Mg/Ml 2 Ml Vial) 4 mg IV Q6H PRN PRN Reason: Nausea Stop: 12/26/20 07:24 Last Admin: 12/05/20 16:57 Dose: 4 mg Documented by: Tramadol HCl (Tramadol Hcl 50 Mg Tablet) 50 mg PO HS PRN PRN Reason: leg pain Stop: 12/26/20 07:24 Vitamin B Complex/Folic Acid (Nephrocaps) 1 cap PO HS [facility] Stop: 12/26/20 20:59 Last Admin: 12/04/20 20:29 Dose: 1 cap Documented by: Vitamin D (Cholecalciferol 1,000 Units 25 Mcg Tab) 5,000 units PO QAM [facility] Stop: 12/26/20 08:59 Last Admin: 12/05/20 08:40 Dose: 5,000 units Documented by: Zinc Sulfate (Zinc Sulfate 220 Mg Capsule) 220 mg PO HS [facility] Stop: 12/26/20 20:59 Last Admin: 12/04/20 20:29 Dose: 220 mg Documented by: (1) Diabetes mellitus, type II Chronic kidney disease stage: stage 3 (moderate) Diabetes mellitus complication detail: with chronic kidney disease Diabetes mellitus complication status: with kidney complications Diabetes mellitus hospital housekeeper insulin use: unspecified hospital housekeeper insulin use status Qualified Code(s): E11.22 - Type 2 diabetes mellitus with diabetic chronic kidney disease; N18.3 - Chronic kidney disease, stage 3 (moderate)
--- NOTE | 2020-12-05 20:46 | Communication Note ---
Date of Service: December 05, 2020 Overnight developments Notified by RN of SBP 70s. Uncontrolled A. fib overnight cardiac rate 1 10-1 30s Maintenance Toprol-XL administration precluded by low BP. Heart rate with minimal response to 1 dose digoxin and fluid resuscitation. No abdominal pain, no cough as per RN. Persistent nausea, poor appetite. Lactic acid 5 AP Uncontrolled A. fib Hypotension Rule out progressive colitis given persistent nausea symptoms and lactic acidosis PCU transfer to facilitate IV amiodarone (Attempted to contact facility mechanic correction officer city or [facility] at 4:50 AM, 12/06, to obtain recommendations; no reply after 30 minutes) CT abdomen pelvis RE persistent nausea, lactic acidosis, history of colitis N.p.o. until CT results known. Will relay to AM provider.
[2020-12-05] MEDS: ALBUMIN 25% 12.5 GM/50 ML VIAL IV SCH ×2 (21:04→23:59)
[2020-12-05] MEDS ORDERED: SODIUM CHLORIDE 0.9% 500 ML IV ONE (21:32)
[2020-12-05] MEDS: NEPHROCAPS PO SCH (21:34)
[2020-12-05] MEDS: ZINC SULFATE 220 MG CAPSULE PO SCH (21:35)
[2020-12-05] MEDS ORDERED: DIGOXIN 250 MCG in SYRINGE 9 ML IV SCH (22:15)
[2020-12-06] MEDS ORDERED: SODIUM CHLORIDE 0.9% 500 ML IV ONE (00:45)
[2020-12-06] MEDS ORDERED: SODIUM CHLORIDE 0.9% 1000ML 1,000 ML IV ONE (03:14)
[2020-12-06] MEDS ORDERED: MIDODRINE HCL 2.5 MG TAB PO STA (03:15)
[2020-12-06] MEDS ORDERED: 0.2 MICRON FILTER SET 1 EA IV ONE (06:27)
[2020-12-06] MEDS ORDERED: STAT IV Infusion **Titration per Protocol STA (06:27)
[2020-12-06] MEDS ORDERED: PROMETHAZINE HCL 6.25 MG in SODIUM CHLORIDE 0.9% 50 ML IV PRN (06:27)
[2020-12-06] MEDS ORDERED: AMIODARONE IV BOLUS & DRIP IV STA (06:27)
[2020-12-06] MEDS ORDERED: AMIODARONE / D5W 360 MG/200 ML BAG IV ONE (06:27)
[2020-12-06] MEDS ORDERED: AMIODARONE 360MG / 200ML D5W IV ONE (06:31)
[2020-12-06] MEDS ORDERED: AMIODARONE 150MG / 100ML D5W IV ONE (06:31)
[2020-12-06] MEDS ORDERED: AMIODARONE / D5W 150 MG/100 ML BAG IV STA (06:31)
[2020-12-06] MEDS: LEVOTHYROXINE SODIUM 200 MCG TABLET PO SCH (06:46)
[2020-12-06] MEDS ORDERED: HEPARIN SOD (PORCINE) 1000 UNIT/ML IV ONE (07:48)
[2020-12-06] MEDS ORDERED: SODIUM CHLORIDE 0.9% 1000ML 1,000 ML IV PRN (07:48)
--- NOTE | 2020-12-06 08:49 | CT Scan Report ---
CT SCAN OF THE ABDOMEN AND PELVIS WITHOUT CONTRAST CLINICAL HISTORY: persistent nausea, lactic acidosis COMPARISON STUDY: November 30, 2020 TECHNIQUE: CT scan of the abdomen and pelvis was performed from the lung bases to the proximal femurs . Images are reviewed in the axial, sagittal, and coronal planes. IV contrast was not administered fo r this examination. A dose lowering technique was utilized adhering to the principles of ALARA. CT DOSE: 322.48 mGy.cm FINDINGS: Lower chest: Interval development of trace bilateral pleural effusion. Interval worsening of atelecta sis at dependent portions of bilateral lower lobes. Redemonstration of focal consolidation at subpleu ral aspect of the left lower lobe and 6 mm nodule is unchanged since recent prior study. Irregular septal thickening and mild peribronchial cuffing is seen within bilateral lower lungs. Liver: Liver is normal in size and contour without definite mass lesions. Redemonstration of pneumobi evan which is seen within left lobe of the liver and within common bile duct. Gallbladder: Is not seen. Spleen: Normal in size and attenuation. Pancreas: Is severely atrophic. Dilated proximal portion of the pancreatic duct measuring 1.2 cm in d iameter is unchanged since prior study. Adrenal glands: Poorly seen due to diffuse mesenteric edema. Kidneys: The unenhanced kidneys are normal in size without hydronephrosis. There is no contour deform ing renal mass lesion. Small calcification is seen within left renal pelvis which is likely vascular. . Bowel: Bowel loops are nondilated. Evaluation is limited due to lack of intravenous contrast and diff use mesenteric edema. Appendix is not well seen. Air-fluid level is seen within the rectum which appe ars similar to prior study. Peritoneum: There is no intraperitoneal free air seen. Small amount of fluid is seen within lower pel rachel region. Diffuse mesenteric edema is seen. Vasculature: Abdominal aorta is tortuous with scattered calcifications of its wall. There is concentr ic calcifications of splenic and superior mesenteric artery. Adenopathy: No large retroperitoneal or mesenteric lymph nodes are seen however evaluation is limited due to anasarca. Pelvic viscera: Urinary bladder is filled with excreted contrast material. Uterus is surgically absen t. Skeletal structures: Diffuse osteopenia. Multilevel degenerative changes of the spine. Compression fr acture deformity of the L1 is again seen. Cachexia. Diffuse soft tissue edema appears slightly more prominent since prior study. IMPRESSION: 1. Interval development of trace bilateral pleural effusion. Worsening of atelectasis. Further evalu ation with CT of the chest might be considered if clinically indicated. 2. Cachexia. Interval worsening of anasarca. Small amount of fluid within pelvic region. 3. Redemonstration of pneumobilia and focal dilatation of the pancreatic duct. Atrophic pancreas. 4. No bowel loop dilatation. Limited exam due to lack of IV contrast and diffuse mesenteric edema. 5. Atherosclerosis. 6. The rest of findings as detailed above. ACT 112: Negative or not required by law. The above report was generated using voice recognition software. It may contain grammatical, syntax o r spelling errors. Electronically signed by: Keira Jimenez DO 12/06/2020 8:48 AM
[2020-12-06] MEDS: INSULIN ASPART 100 UNITS/ML 3 ML PEN SC SCH ×4 (09:06→21:29)
[2020-12-06] MEDS: HEPARIN SOD 5,000 UNIT/0.5 ML VIAL SQ SCH ×2 (09:06→21:28)
[2020-12-06] MEDS: CALCIUM ACETATE 667 MG CAP/TAB PO SCH ×3 (11:30→17:04)
[2020-12-06] MEDS: ARIPIprazole 1 MG/ML ORAL SOLN 150 ML BTL PO SCH (11:32)
[2020-12-06] MEDS: CLOPIDOGREL BISULFATE 75 MG TAB PO SCH ×2 (11:32→17:03)
[2020-12-06] MEDS: LORATADINE 10 MG TAB PO SCH (11:32)
[2020-12-06] MEDS: FLUoxetine HCL 20 MG CAP PO SCH (11:32)
[2020-12-06] MEDS: FLUoxetine HCL 10 MG CAP PO SCH (11:32)
[2020-12-06] MEDS: METOPROLOL SUCC 50MG EXT REL TAB PO SCH ×2 (11:32→21:28)
[2020-12-06] MEDS: CHOLECALCIFEROL 1,000 UNITS 25 MCG TAB PO SCH (11:32)
[2020-12-06] MEDS: HEPARIN SOD (PORCINE) 1000 UNIT/ML IV SCH ×2 (12:05→12:06)
[2020-12-06 12:08] LABS: BUN Creatinine Ratio 6.4 (10-20); Calcium 8.8 mg/dl (8.5-10.1); Creatinine Clr Calc Pharmacy 8.6 ml/min; Est GFR (African American) 10.9 ml/min; Est GFR (Non-African American) 9.4 ml/min
[2020-12-06] MEDS: AMIODARONE / D5W 360 MG/200 ML BAG IV SCH (12:36)
--- NOTE | 2020-12-06 12:52 | Palliative Care Consultation ---
Date of Consultation December 06, 2020 Assessment & Plan (1) Abdominal pain: Improving (2) Nausea: Worse after eating. Possible gastroparesis vs potential gut ischemia. We discussed routine dosing of odansetron, however, she was started on routine phenergan today. Will monitor. She is unable to swallow pills. Will use ODT. (3) Anorexia: Correct nausea and monitor. Her family has been making her favorite foods but she is not interested. She has altered sense of taste which is contributing to her poor appetite. We discussed decreased appetite as expected with chronic serious illness and ways to focus on pleasurable foods rather than worrying about nutritional support. (4) Palliative care encounter: Jemma tells me that she is scared about dying. She does not want to leave her family and not see her grandchildren and great grandchildren grow up. She and her daughters understand that she is approaching her dying time. Jemma tells me that she would like to in her sleep. She would like to be at home if possible, though she worries that her would be mad at her if she at home. We discussed what to expect with her heart disease and kidney disease as she approaches her dying time and what that might be like. Her daughters asked about whether she could remain in the hospital until her dying time. We discussed that if her symptoms were managed and she were reasonably stable, we would need to consider SNF vs home with hospice. We talked about hospice. Jemma is adamant about not wanting to go to SNF. They are going to discuss as a family. Palliative care will follow. (5) Severe protein-calorie malnutrition: (6) Atrial fibrillation: (7) End-stage renal disease on hemodialysis: (8) Atrial fibrillation with tachycardic ventricular rate: History of Present Illness Reason for Consultation: goals of care Requesting Physician: Dr. Valera Attending Physician: Paula Shirley MD History of Present Illness 85 yo lady with ESRD on dialysis with a fib, diastolic heart failure, mitral valve disease post repair. She has had recurring pleural effusions with multiple thoracenteses. She was admitted with abdominal pain and weakness with poor po intake. Initially there was concern for pneumoperitoneum but that appears to have resolved on f/u CT. There is also some indication of nonsp ecific colitis on CT possibly indicative of mesenteric ischemia. She has had ongoing problems with rapid afib. She is feeling very weak and complains of dry mouth. She has been having nausea after eating which she feels is affecting her oral intake though she does also say that she doesn't have an appetite. Allergies Allergy/AdvReac Type Severity Reaction Status Date / Time No Known Allergies Allergy Verified 11/26/20 00:03 Home Medications Medication Instructions Recorded Confirmed Type clopidogrel [Plavix] 75 mg PO QAM 08/22/18 11/26/20 History tramadol 50 mg PO HS PRN 08/22/18 11/26/20 History acetaminophen [Tylenol Extra 500 - 1,000 mg PO Q6H PRN 12/20/18 11/26/20 History Strength] Lantus U-100 Insulin 10 unit SUBCUT QAM 01/10/20 11/26/20 History albuterol sulfate 2 puff INHALATION QID PRN 01/10/20 11/26/20 History aripiprazole [Abilify] 2 mg PO QAM 01/10/20 11/26/20 History docusate sodium 100 mg PO QAM PRN 01/10/20 11/26/20 History semaglutide 1 mg SUBCUT WK 01/10/20 11/26/20 History zinc sulfate [Zinc-220] 220 mg PO HS 01/10/20 11/26/20 History Renal Caps 1 cap PO HS #30 cap 03/28/20 11/26/20 Rx calcium acetate 667 mg PO TIDM 06/28/20 11/26/20 History cholecalciferol (vitamin D3) 125 mcg PO QAM 06/28/20 11/26/20 History [Vitamin D3] fluoxetine [Prozac] 20 mg PO QAM 06/28/20 11/26/20 History loratadine 10 mg PO QAM 06/28/20 11/26/20 History fluoxetine 10 mg PO QAM 11/26/20 11/26/20 History levothyroxine 200 mcg PO DAILY 11/26/20 11/26/20 History metoprolol succinate 100 mg PO BID 11/26/20 11/26/20 History mirtazapine 15 mg PO HS 11/26/20 11/26/20 History Patient History Medical History Anemia due to chronic kidney disease Asthma D.O.E > USES RES. INH A FEW TIMES A WEEK CAD (coronary artery disease) Cardiac cath 2011 demonstrated nonobstructive disease CHF (congestive heart failure) Chronic diastolic CHF (congestive heart failure) FOLLOWS PORTILLO BAIG CVA (cerebral vascular accident) 2 YRS AGO> [facility]> GENERALIZED WEAKNESS SINCE> NO NEUROLOGY-NO NEW ISSUES Depression Diabetes mellitus, type II IDDM Diabetic polyneuropathy Dialysis patient TUE/THURS/SAT > [facility] Dyslipidemia ESRD (end stage renal disease) Previously stage III CKD, hospitalized in [place] for fall 03/04/20, found to be in BARBARA. Tx to [facility] with worsening BARBARA, felt 2/2 ATN. Perm cath placed and dialysis initiated. GERD (gastroesophageal reflux disease) UNDER CONTROL History of mitral valve disease S/P mitral valve repair 2012. Mild mitral stenosis noted on 03/10/20 echo. History of pleural effusion With multiple thoracentesis > LAST EPISODE 2 YRS AGO PER PT Hx MRSA infection 02/2020 RIGHT 2ND TOE STILL BLEEDS AT TIMES, NO LONGER ON TREATMENT Hypertension Hypothyroidism Iron deficiency anemia Osteoporosis SOB (shortness of breath) on exertion FLAT SURFACES ANY ELEVATION Venous insufficiency of both lower extremities Surgical History History of cardiac cath 2011> NO STENTS> [facility] History of colonoscopy History of esophagogastroduodenoscopy (EGD) History of tooth extraction History of vascular access device HAS PRESENTLY TO RIGHT CHEST S/P patent foramen ovale closure 2012 > [facility] Status post cataract extraction BILAT Status post cholecystectomy Status post hysterectomy Status post mitral valve repair 2012 > [place] Family History Other Family history non-contributory Social History Smoking Status: Former smoker Second Hand Exposure: Yes (PARENTS SMOKED); Hx Alcohol Use: No Hx Substance Use: No Preferred Language: Hungarian Communication Ability: Effective [employer] Equipment Operator Required: No Beliefs That Will Affect Care: None marital status: Current Living Situation: Spouse current occupational status: retired How many Children do You have: 5 Feels Safe at Home: Yes Assistive Devices: Walker Review of Systems Review of Systems: Pyrites Symptom Assessment Scale Pain 1/3 Dyspnea 0/3 Fatigue 3/3 Nausea 2/3 Drowsiness 0/3 Anxiety 1/3 Palliative Performance Score 30% Physical Exam Constitutional: + cachectic; no acute distress ENMT: Mouth: + dry oral mucous membranes Respiratory: normal respiratory effort; no labored breathing Cardiovascular: Rate/Rhythm: + irregularly irregular Gastrointestinal (Abdomen): Inspection/Auscultation: abdomen not distended Musculoskeletal: Extremities: + muscle atrophy Neurologic: awake; not confused Psychiatric: Orientation: alert and oriented x 3 Affect: + anxious affect Results & Data ([facility]) Vital Signs (Past 12 Hours) Vital Signs Temp Pulse Pulse Pulse Resp BP BP 12/06/20 12:20 83 88/58 L 12/06/20 12:00 69 99/60 L 12/06/20 11:52 68 98/47 L 12/06/20 11:45 97.3 F L 92 H 12/06/20 11:25 97.3 F L 16 12/06/20 08:37 97.5 F L 72 16 12/06/20 06:04 97.5 F L 120 H 20 103/70 12/06/20 04:38 138 H 12/06/20 03:32 97.5 F L 115 H 20 98/63 L BP Pulse Ox 12/06/20 12:20 12/06/20 12:00 12/06/20 11:52 12/06/20 11:45 12/06/20 11:25 94/53 L 95 12/06/20 08:37 125/67 97 12/06/20 06:04 99 12/06/20 04:38 12/06/20 03:32 100 PG Care Time/CCT Total # of Minutes Spent Total Time Spent with Patient: Total time spent is greater than 50% in coordination of care (as documented) at patient's floor/unit and/or counseling patient: total time spent70 minutes with more than 50% of time spent on goals of care, prognosis, hospice, symptom management. Coding Level of Care Code 54017 Initial Inpt Care Lvl 3 Diagnoses Abdominal pain R10.9 Nausea R11.0 Anorexia R63.0 Palliative care encounter Z51.5 Severe protein-calorie malnutrition E43 Atrial fibrillation I48.91 End-stage renal disease on hemodialysis N18.6; Z99.2 Atrial fibrillation with tachycardic ventricular rate I48.91
--- NOTE | 2020-12-06 13:27 | Hospitalist Progress Note ---
Date of Service December 06, 2020 Assessment & Plan (1) Abdominal pain: Abdominal pain is after food intake and is described as acute for the past 3-4 weeks. Timing went along with initiation of Remeron which has been stopped. Significant weight loss is present and patient has well-known underlying depression that is likely contributing. CT performed on admission but without contrast-reveals pneumatosis intestinalis. No convincing evidence for acute bowel ischemia incl normal stool, intermittent pain, and clear CTA of the abdomen did not show any major vessel thrombosis and obstruction to suggest ischemic bowel Has nonspecific colitis without any definitive abscess Has been on Marinol since yesterday to increase appetite (2) Colitis: nonspecific colitis that appears to be improving on serial CT imaging. Completed course of antibiotics and is feeling better from this standpoint. No other signs and or symptoms of infection (3) Pneumatosis intestinalis: appears to have resolved on updated scan. (4) Abnormal LFTs: Possibly secondary to medications (Remeron), which has been stopped. Trending down. Followup as outpatient with PCP. We will monitor LFTs since amiodarone has been started (5) Atrial fibrillation: Persistent afib with some RVR-she is dry and not taking in enough fluids. Ultrafiltration was cut back recently. Per Nephrology, she appears to be at her baseline hemodynamically including periods of hypotension and tachycardia. She has been seen in the Cardiology clinic for the past 6 months with recent adjustments in her beta opal. She was transitioned from Coreg to Metoprolol in Jun 2020 and titrated up to her current dose in October 2020. She remains tachycardic with intermittent heart rates in the 120-130s. Cont to encourage hydration by mouth. A. fib with RVR last night With systolic blood pressure at around 70s No improvement of her condition with intravenous digoxin and also IV fluid boluses She was started with intravenous amiodarone and was transferred to telemetry unit Blood pressure seems to be stable this morning and the heart rate is stable to Will be reevaluated by the sole cutter (6) Severe protein-calorie malnutrition: Significant weight loss, likely multifactorial etiology including multiple comorbidities, severe depression and poor PO intake in recent months. Remeron has been stopped. Still uncertain etiology of recent abdominal pain prompting admission. Failure to thrive picture. Appreciate palliative care input and recommendation (7) Generalized weakness: Poor PO intake, PT/OT evaluation-recommend SNF which she and her family are considering. (8) End-stage renal disease on hemodialysis: Has been on hemodialysis and will continue //Sat regimen We will continue hemodialysis (9) Diabetes mellitus, type II: SSI, minimal insulin required. (10) DVT prophylaxis: heparin CODE STATUS Changed to DNR by my previous hospitalist after discussion with the patient Remains DNR for now Will likely transition her to SNF for a short term stay at rehab as a transition to home. Admission and Anticipated Discharge Date Admission Date: November 26, 2020 Subjective 11/27/2020 The patient was seen and examined in medical telemetry unit She has been complaining of nausea without any vomiting and the abdominal pain is almost gone Remains generally weak and lethargic Has been feeling much better overall 11/28/2020 The patient was seen and examined in medical telemetry unit She complains to have some nausea but denies any abdominal pain She has had issues with swallowing of pills yesterday and this morning Has had evaluation by the speech and advised to continue with soft diet Denies any fever and/or chills and feels a little better compared with admission 12/06/2020 The patient was seen and examined in telemetry unit I took care of her for 2 days during my last hospitalist rounding session She was moved to telemetry unit last night on intravenous amiodarone due to at rial fibrillation with rapid ventricular response and low blood pressure She remains weak and lethargic as of this morning but denies any chest pain, palpitation, abdominal pain, nausea no vomiting, or any increasing shortness of breath Review of Systems Review of Systems: All systems reviewed and are unremarkable as noted below Gastrointestinal: + nausea; no abdominal pain and no bloating Neurologic: + generalized weakness Physical Exam Physical Exam: Lying in bed comfortably and anxiously Constitutional: + ill appearing and + thin Eyes: PERRL, conjunctivae normal, anicteric sclerae ENMT: external ear and nose normal, oropharynx normal Neck: trachea midline, no thyromegaly Respiratory: no respiratory distress Auscultation: + diminished lung sounds and + crackles (Minimal crackles at the bases) Cardiovascular: Rate/Rhythm: + irregularly irregular Heart Sounds: + murmur (2/6 ESM over precordium) Gastrointestinal (Abdomen): Inspection/Auscultation: normal bowel sounds; abdomen not distended Percussion/Palpation: abdomen soft; abdomen nontender Musculoskeletal: No acute arthritis in any joint Neurologic: Alert and awake. Generally weak and lethargic. Moving all limbs equally Lymphatic: no cervical or axillary lymphadenopathy Results & Data Results & Data ([facility]) Vital Signs (Past 12 Hours) Vital Signs Temp Pulse Pulse Pulse Resp BP BP 12/06/20 12:20 83 88/58 L 12/06/20 12:00 69 99/60 L 12/06/20 11:52 68 98/47 L 12/06/20 11:45 36.3 C L 92 H 12/06/20 11:25 36.3 C L 16 12/06/20 08:37 36.4 C L 72 16 12/06/20 06:04 36.4 C L 120 H 20 103/70 12/06/20 04:38 138 H 12/06/20 03:32 36.4 C L 115 H 20 98/63 L BP Pulse Ox 12/06/20 12:20 12/06/20 12:00 12/06/20 11:52 12/06/20 11:45 12/06/20 11:25 94/53 L 95 12/06/20 08:37 125/67 97 12/06/20 06:04 99 12/06/20 04:38 12/06/20 03:32 100 Laboratory Results BMP 12/06/20 11:36 Sodium 139 Potassium 5.0 Chloride 107 Carbon Dioxide 20 L BUN 26 H D Creatinine 4.11 H D Glucose 178 H Calcium 8.8 Medications Administered Current Inpatient Medications Acetaminophen (Acetaminophen 325 Mg Tab) 650 mg PO Q4H PRN PRN Reason: Pain or Fever Stop: 12/26/20 07:24 Aripiprazole (Aripiprazole 1 Mg/Ml Oral Soln 150 Ml Btl) 2 mg PO QAM PENDING SALE TO [facility] Stop: 12/26/20 08:59 Last Admin: 12/06/20 11:32 Dose: Not Given Documented by: Calcium Acetate (Calcium Acetate 667 Mg Cap/Tab) 667 mg PO TIDM LUZMARIA Stop: 12/26/20 07:59 Last Admin: 12/06/20 11:40 Dose: Not Given Documented by: Clopidogrel Bisulfate (Clopidogrel Bisulfate 75 Mg Tab) 75 mg PO QAM PENDING S[facility] TO [facility] Stop: 12/26/20 08:59 Last Admin: 12/06/20 11:32 Dose: Not Given Documented by: Docusate Sodium (Docusate Sodium 100 Mg Cap) 100 mg PO QAM PRN PRN Reason: Constipation Stop: 12/26/20 07:24 Last Admin: 11/26/20 08:23 Dose: 100 mg Documented by: Dronabinol (Dronabinol 2.5 Mg Cap) 2.5 mg PO DAILY [facility] Stop: 01/05/21 08:59 Last Admin: 12/06/20 11:32 Dose: Not Given Documented by: Fluoxetine HCl (Fluoxetine Hcl 20 Mg Cap) 20 mg PO QAM [facility] Stop: 12/26/20 08:59 Last Admin: 12/06/20 11:32 Dose: Not Given Documented by: Fluoxetine HCl (Fluoxetine Hcl 10 Mg Cap) 10 mg PO QAM [facility] Stop: 12/26/20 08:59 Last Admin: 12/06/20 11:32 Dose: Not Given Documented by: Heparin Sodium (Porcine) (Heparin Sod 5,000 Unit/0.5 Ml Vial) 5,000 units SQ Q12 [facility] TO [facility] Stop: 12/30/20 10:49 Last Admin: 12/06/20 09:06 Dose: 5,000 units Documented by: Amiodarone HCl/Dextrose (Nexterone / D5w) 360 mg in 200 mls @ 16.667 mls/hr IV .Q12H PENDING SALE TO [facility] Stop: 01/05/21 12:39 Last Admin: 12/06/20 12:36 Dose: 0.5 mg/min, 16.7 mls/hr Documented by: Promethazine HCl 6.25 mg/ (Sodium Chloride) 50.25 mls @ 201 mls/hr IV Q6H PRN PRN Reason: Nausea And Vomiting Stop: 01/05/21 06:26 Sodium Chloride (Nss 1000ml) 1,000 mls @ 0 mls/hr IV .Q0M PRN PRN Reason: For Hemodialysis Use ONLY Stop: 12/06/20 13:47 Insulin Aspart (Insulin Aspart 100 Units/Ml 3 Ml Pen) 0 units SC ACHS PENDING SALE TO [facility] Stop: 12/26/20 07:29 Last Admin: 12/06/20 11:40 Dose: Not Given Documented by: Levothyroxine Sodium (Levothyroxine Sodium 200 Mcg Tablet) 200 mcg PO DAILYBB [facility]END[facility] Stop: 12/26/20 07:59 Last Admin: 12/06/20 06:46 Dose: 200 mcg Documented by: Loratadine (Loratadine 10 Mg Tab) 10 mg PO QAM [facility] Stop: 12/26/20 08:59 Last Admin: 12/06/20 11:32 Dose: Not Given Documented by: Metoprolol Succinate (Metoprolol Succ 50mg Ext Rel Tab) 50 mg PO BID [facility] Stop: 01/05/21 08:59 Last Admin: 12/06/20 11:32 Dose: Not Given Documented by: Nitroglycerin (Nitroglycerin Sl 0.4 Mg/Tab Tab) 0.4 mg SL UD PRN PRN Reason: Chest Pain Stop: 12/26/20 07:24 Tramadol HCl (Tramadol Hcl 50 Mg Tablet) 50 mg PO HS PRN PRN Reason: leg pain Stop: 12/26/20 07:24 Vitamin B Complex/Folic Acid (Nephrocaps) 1 cap PO [facility] Stop: 12/26/20 20:59 Last Admin: 12/05/20 21:34 Dose: Not Given Documented by: Vitamin D (Cholecalciferol 1,000 Units 25 Mcg Tab) 5,000 units PO QAM [facility] Stop: 12/26/20 08:59 Last Admin: 12/06/20 11:32 Dose: Not Given Documented by: Zinc Sulfate (Zinc Sulfate 220 Mg Capsule) 220 mg PO [facility] Stop: 12/26/20 20:59 Last Admin: 12/05/20 21:35 Dose: Not Given Documented by: (1) Diabetes mellitus, type II Diabetes mellitus half-way insulin use: unspecified long term care social worker insulin use status Diabetes mellitus complication status: with kidney complications Diabetes mellitus complication detail: with chronic kidney disease Chronic kidney disease stage: stage 3 (moderate) Qualified Code(s): E11.22 - Type 2 diabetes mellitus with diabetic chronic kidney disease; N18.3 - Chronic kidney disease, stage 3 (moderate)
--- NOTE | 2020-12-06 16:57 | Cardiology Progress Note ---
Date of Service December 06, 2020 Assessment & Plan (1) Atrial fibrillation with tachycardic ventricular rate: Complex patient admitted with acute abdominal issues possible mesenteric ischemia with slowly improving functional status however persistent anorexia and now hypotension with orthostasis, elevated atrial fibrillation ventricular response rates. Recommendations: Unfortunately, given the patient's current clinical status our options are significantly limited in terms of treatment of her atrial fibrillation. Amiodarone is indicated and has been beneficial for the patient overnight with rates improvement. However, there is a concern that should she convert to normal sinus rhythm then cardioembolic event may occur. This risk was discussed with the patient as well without lack of other viable treatment options given her clinical status and she is in agreement with continuation of the amiodarone. Continue to monitor on telemetry. (2) Pneumatosis intestinalis: Per surgery and GI consultation (3) Abnormal LFTs: (4) End-stage renal disease on hemodialysis: (5) Severe protein-calorie malnutrition: (6) Chronic diastolic CHF (congestive heart failure): (7) Status post mitral valve repair: Admission and Anticipated Discharge Date Admission Date: November 26, 2020 Subjective Patient seen and examined, chart reviewed. Case discussed with nursing and primary team. Currently patient states that she is feeling much better. Notes that last night during episode of A. fib with RVR she felt her heart racing and extremely fatigued and short of breath. Symptoms resolved after the initiation of amiodarone. Currently denies any chest pain, shortness of breath, palpitations, lightheadedness, dizziness or syncope. Telemetry reviewed: Atrial fibrillation with rapid ventricular response and progressively improving rates overnight. Review of Systems Review of Systems: All systems reviewed & are unremarkable except as noted in HPI & below Physical Exam Physical Exam: General: Awake, alert and oriented x 3. No acute distress. Frail and cachectic HEENT: Normocephalic, atraumatic. Pupils equal, round and reactive to light and accommodation. Extraocular muscles are intact. Anicteric sclera. Moist mucous membranes. Neck: No JVD. No bruit. Cardiovascular: irregularly irregular, unable to appreciate murmur, rub or gallop. Pulmonary: Clear to auscultation bilaterally. No rales, rhonchi, or wheezing. Abdomen: Bowel sounds x 4, soft. No rebound, guarding or tenderness. No organomegaly. Extremities: No clubbing, cyanosis or edema. +2 pedal pulses bilaterally. Skin: Warm and dry. Results & Data ([facility]) Vital Signs (Past 12 Hours) Vital Signs Temp Pulse Pulse Pulse Resp BP BP 12/06/20 16:16 36.2 C L 16 12/06/20 14:00 71 83/39 L 12/06/20 13:40 97 H 97/58 L 12/06/20 13:20 86 92/60 L 12/06/20 13:00 74 93/56 L 12/06/20 12:40 77 97/63 L 12/06/20 12:20 83 88/58 L 12/06/20 12:00 69 99/60 L 12/06/20 11:52 68 98/47 L 12/06/20 11:45 36.3 C L 92 H 12/06/20 11:25 36.3 C L 16 12/06/20 08:37 36.4 C L 72 16 12/06/20 06:04 36.4 C L 120 H 20 103/70 BP Pulse Ox 12/06/20 16:16 99/67 L 12/06/20 14:00 12/06/20 13:40 12/06/20 13:20 12/06/20 13:00 12/06/20 12:40 12/06/20 12:20 12/06/20 12:00 12/06/20 11:52 12/06/20 11:45 12/06/20 11:25 94/53 L 95 12/06/20 08:37 125/67 97 12/06/20 06:04 99
--- NOTE | 2020-12-06 17:59 | Nephrology Progress Note ---
Date of Service December 06, 2020 Assessment & Plan (1) ESRD (end stage renal disease): She is Saturday dialysis patient at [facility] for HD today w/ low UF goal 500 mL as HR/ bp allow -goals of care talk as below; next tx tentatively /8 -no anemia meds needed -recommend bmp daily; cbc could be q 48 hrs (2) Atrial fibrillation with tachycardic ventricular rate: chronic issue for her and worse here -- not uncommon on HD to have HR 90- 120s w/ barely maintained bp; we walk a very fine line between fluid overload and fluid depletion historically but currently dry (3) Severe protein-calorie malnutrition: longstanding challenge for her, worse recently/this admission; per primary service (4) Generalized weakness: chronic issue for her and worse here -- worse w/ her even poorer po intake; we walk a very fine line between fluid overload and fluid depletion but she is currently dry (5) Goals of care, counseling/discussion: did talk to pt today about possibility of changing goals of care to stop dialysis; she has always had failure to thrive which has in past weeks worsened; will cont to work on reversible causes but she may also opt soon to withdraw; she is considering it; states one daughter would support this if pt chose it but other not -will continue to discuss -palliative care for goals of care as OP or IP Admission and Anticipated Discharge Date Admission Date: November 26, 2020 Subjective started on amiodarone gtt; moved to [facility] [place] to do this; HR /BP still borderline; some N today; cont poor po Review of Systems Review of Systems: All systems reviewed & are unremarkable except as noted in Subjective Physical Exam Constitutional: well developed, + thin, + frail appearing and cooperative Eyes: EOM intact bilaterally ENMT: Ears: no external ear abnormality Nose: no external nose abnormality Mouth: + dry oral mucous membranes Neck: no nuchal rigidity Respiratory: normal respiratory effort Auscultation: + diminished lung sounds Cardiovascular: Rate/Rhythm: + tachycardic and + irregularly irregular Extremities: + edema (trace BLE) Gastrointestinal (Abdomen): Inspection/Auscultation: normal bowel sounds; abdomen not distended Percussion/Palpation: abdomen soft; abdomen nontender Musculoskeletal: Extremities: strength 5/5 throughout Skin: no rashes, warm and dry Neurologic: generalized weakness, ochoa Psychiatric: Orientation: alert and oriented x 3 Speech: normal rate/rhythm/volume of speech Affect: + flat affect Results & Data ([facility]) Vital Signs (Past 12 Hours) Vital Signs Temp Pulse Pulse Pulse Resp BP BP 12/06/20 16:16 36.2 C L 16 12/06/20 15:00 36.2 C L 95 H 12/06/20 14:00 71 83/39 L 12/06/20 13:40 97 H 97/58 L 12/06/20 13:20 86 92/60 L 12/06/20 13:00 74 93/56 L 12/06/20 12:40 77 97/63 L 12/06/20 12:20 83 88/58 L 12/06/20 12:00 69 99/60 L 12/06/20 11:52 68 98/47 L 12/06/20 11:45 36.3 C L 92 H 12/06/20 11:25 36.3 C L 16 12/06/20 08:37 36.4 C L 72 16 12/06/20 06:04 36.4 C L 120 H 20 103/70 BP Pulse Ox 12/06/20 16:16 99/67 L 12/06/20 15:00 108/60 12/06/20 14:00 12/06/20 13:40 12/06/20 13:20 12/06/20 13:00 12/06/20 12:40 12/06/20 12:20 12/06/20 12:00 12/06/20 11:52 12/06/20 11:45 12/06/20 11:25 94/53 L 95 12/06/20 08:37 125/67 97 12/06/20 06:04 99 Laboratory Results 12/05/20 06:41 12/06/20 11:36
[2020-12-06] MEDS: ZINC SULFATE 220 MG CAPSULE PO SCH (21:29)
[2020-12-06] MEDS: NEPHROCAPS PO SCH (21:29)
[2020-12-07] MEDS: AMIODARONE / D5W 360 MG/200 ML BAG IV SCH ×2 (00:53→11:54)
[2020-12-07] MEDS: LEVOTHYROXINE SODIUM 200 MCG TABLET PO SCH (05:40)
[2020-12-07 06:10] LABS: Basophils # (auto) 0.01 K/uL (0-0.2); Basophils % (auto) 0.1 %; Eosinophils # (auto) 0.02 K/uL (0-0.5); Eosinophils % (auto) 0.3 %; Hematocrit (blood only) 29.5 % (37-47); Immature Granulocytes # (auto) 0.08 K/uL (0.00-0.02); Immature Granulocytes % (auto) 1.1 %; Lymphocytes # (auto) 0.62 K/uL (1.2-3.4); Lymphocytes % (auto) 8.5 %; Mean Corpuscular Hemoglobin 31.7 pg (25-34); Mean Corpuscular Hgb Conc 30.5 g/dL (32-36); Mean Corpuscular Volume 103.9 fL (80-100); Mean Platelet Volume 9.8 fL (7.4-10.4); Monocytes # (auto) 0.49 K/uL (0.11-0.59); Monocytes % (auto) 6.7 %; Neutrophils % (auto) 83.3 %; Nucleated RBC # (auto) 0.09 K/uL (0-0); Nucleated RBC % (auto) 1.2 %; Platelet Count 126 K/uL (130-400); RDW Coefficient of Variation 19.2 % (11.5-14.5); RDW Standard Deviation 69.2 fL (36.4-46.3); Red Blood Count 2.84 M/uL (4.2-5.4); White Blood Count 7.32 K/uL (4.8-10.8)
--- NOTE | 2020-12-07 06:13 | Electrocardiogram Report ---
Test Reason : Blood Pressure : / mmHG Vent. Rate : 091 BPM Atrial Rate : 092 BPM P-R Int : 000 ms QRS Dur : 096 ms QT Int : 354 ms P-R-T Axes : 000 035 190 degrees QTc Int : 435 ms Atrial fibrillation Cannot rule out Anterior infarct (cited on or before 30-NOV-2020) T wave abnormality, consider lateral ischemia Abnormal ECG When compared with ECG of 30-NOV-2020 10:11, Nonspecific T wave abnormality now evident in Anterior leads Confirmed by Devan Philip [id number] on 12/07/2020 6:12:53 AM Referred By: REFERRED SELF Confirmed By:Devan Philip
[2020-12-07 06:56] LABS: BUN Creatinine Ratio 6.5 (10-20); Creatinine Clr Calc Pharmacy 14.9 ml/min; Est GFR (African American) 18.8 ml/min; Est GFR (Non-African American) 16.2 ml/min; Magnesium 2.1 mg/dl (1.8-2.4); Phosphorus 3.2 mg/dl (2.5-4.9); Potassium 3.7 mmol/L (3.5-5.1)
[2020-12-07] MEDS: FLUoxetine HCL 20 MG CAP PO SCH (08:41)
[2020-12-07] MEDS: LORATADINE 10 MG TAB PO SCH (08:41)
[2020-12-07] MEDS: FLUoxetine HCL 10 MG CAP PO SCH (08:42)
[2020-12-07] MEDS: ARIPIprazole 1 MG/ML ORAL SOLN 150 ML BTL PO SCH (08:42)
[2020-12-07] MEDS: CHOLECALCIFEROL 1,000 UNITS 25 MCG TAB PO SCH (08:42)
[2020-12-07] MEDS: METOPROLOL SUCC 50MG EXT REL TAB PO SCH ×2 (08:47→22:20)
[2020-12-07] MEDS: HEPARIN SOD 5,000 UNIT/0.5 ML VIAL SQ SCH ×2 (08:47→22:20)
[2020-12-07] MEDS: CALCIUM ACETATE 667 MG CAP/TAB PO SCH ×3 (08:47→16:40)
[2020-12-07] MEDS: CLOPIDOGREL BISULFATE 75 MG TAB PO SCH (08:47)
[2020-12-07] MEDS: INSULIN ASPART 100 UNITS/ML 3 ML PEN SC SCH ×4 (09:10→22:16)
--- NOTE | 2020-12-07 11:19 | Cardiology Progress Note ---
Date of Service December 07, 2020 Assessment & Plan (1) Atrial fibrillation with tachycardic ventricular rate: Complex patient admitted with acute abdominal issues possible mesenteric ischemia with slowly improving functional status however persistent anorexia and now hypotension with orthostasis, elevated atrial fibrillation ventricular response rates. Recommendations: Unfortunately, given the patient's current clinical status our options are significantly limited in terms of treatment of her atrial fibrillation. Amiodarone is indicated and has been beneficial for the patient overnight with rates improvement. However, there is a concern that should she convert to normal sinus rhythm then cardioembolic event may occur. This risk was discussed with the patient as well without lack of other viable treatment options given her clinical status and she is in agreement with continuation of the amiodarone. Once IV load has completed recommend switching to amiodarone milligrams p.o. twice daily then 400 mg p.o. daily. Continue to monitor on telemetry. (2) Pneumatosis intestinalis: Per surgery and GI consultation (3) Abnormal LFTs: (4) End-stage renal disease on hemodialysis: (5) Severe protein-calorie malnutrition: (6) Chronic diastolic CHF (congestive heart failure): (7) Status post mitral valve repair: Admission and Anticipated Discharge Date Admission Date: November 26, 2020 Subjective Patient seen and examined, chart reviewed. States that she is feeling okay today but tired. Denies cardiac complaints of chest pain, shortness of breath, palpitations, lightheadedness, dizziness or syncope. Telemetry reviewed: Atrial fibrillation rate controlled. Review of Systems Review of Systems: All systems reviewed & are unremarkable except as noted in HPI & below Physical Exam Physical Exam: General: Awake, alert and oriented x 3. No acute distress. Frail and cachectic HEENT: Normocephalic, atraumatic. Pupils equal, round and reactive to light and accommodation. Extraocular muscles are intact. Anicteric sclera. Moist mucous membranes. Neck: No JVD. No bruit. Cardiovascular: irregularly irregular, unable to appreciate murmur, rub or gallop. Pulmonary: Clear to auscultation bilaterally. No rales, rhonchi, or wheezing. Abdomen: Bowel sounds x 4, soft. No rebound, guarding or tenderness. No organomegaly. Extremities: No clubbing, cyanosis or edema. +2 pedal pulses bilaterally. Skin: Warm and dry. Results & Data ([facility]) Vital Signs (Past 12 Hours) Vital Signs Temp Pulse Pulse Resp BP Pulse Ox 12/07/20 07:24 36.7 C 85 16 114/67 94 12/07/20 03:20 36.6 C 76 17 108/52 L 98 12/06/20 23:41 36.8 C 87 17 102/58 L 99
--- NOTE | 2020-12-07 16:40 | Hospitalist Progress Note ---
Date of Service December 07, 2020 Assessment & Plan (1) Abdominal pain: Abdominal pain is after food intake and is described as acute for the past 3-4 weeks. Timing went along with initiation of Remeron which has been stopped. Significant weight loss is present and patient has well-known underlying depression that is likely contributing. CT performed on admission but without contrast-reveals pneumatosis intestinalis. No convincing evidence for acute bowel ischemia incl normal stool, intermittent pain, and clear CTA of the abdomen did not show any major vessel thrombosis and obstruction to suggest ischemic bowel Has nonspecific colitis without any definitive abscess Has been on Marinol since yesterday to increase appetite Denies any more abdominal pain but remains anorexic Palliative care encounter Appreciate palliative care input and recommendation Will have a family meeting and further management plan will be outlined (2) Colitis: nonspecific colitis that appears to be improving on serial CT imaging. Completed course of antibiotics and is feeling better from this standpoint. No other signs and or symptoms of infection (3) Pneumatosis intestinalis: appears to have resolved on updated scan. (4) Abnormal LFTs: Possibly secondary to medications (Remeron), which has been stopped. Trending down. Followup as outpatient with PCP. We will monitor LFTs since amiodarone has been started (5) Atrial fibrillation: Persistent afib with some RVR-she is dry and not taking in enough fluids. Ultrafiltration was cut back recently. Per Nephrology, she appears to be at her baseline hemodynamically including periods of hypotension and tachycardia. She has been seen in the Cardiology clinic for the past 6 months with recent adjustments in her beta opal. She was transitioned from Coreg to Metoprolol in Jun 2020 and titrated up to her current dose in October 2020. She remains tachycardic with intermittent heart rates in the 120-130s. Cont to encourage hydration by mouth. A. fib with RVR last night With systolic blood pressure at around 70s No improvement of her condition with intravenous digoxin and also IV fluid boluses She was started with intravenous amiodarone and was transferred to telemetry unit Blood pressure seems to be stable this morning and the heart rate is stable too Will have amiodarone 400 mg p.o. twice daily after completion of IV amiodarone (6) Severe protein-calorie malnutrition: Significant weight loss, likely multifactorial etiology including multiple comorbidities, severe depression and poor PO intake in recent months. Remeron has been stopped. Still uncertain etiology of recent abdominal pain prompting admission. Failure to thrive picture. Appreciate palliative care input and recommendation Advised to eat and drink as little as she can (7) Generalized weakness: Poor PO intake, PT/OT evaluation-recommend SNF which she and her family are considering. (8) End-stage renal disease on hemodialysis: Has been on hemodialysis and will continue Tues/Thurs/Sat regimen We will continue hemodialysis (9) Diabetes mellitus, type II: SSI, minimal insulin required. (10) DVT prophylaxis: heparin CODE STATUS Changed to DNR by my previous hospitalist after discussion with the patient Remains DNR for now Family members and the palliative team are going to be meeting soon regarding further management plan Admission and Anticipated Discharge Date Admission Date: November 26, 2020 Subjective 11/27/2020 The patient was seen and examined in medical telemetry unit She has been complaining of nausea without any vomiting and the abdominal pain is almost gone Remains generally weak and lethargic Has been feeling much better overall 11/28/2020 The patient was seen and examined in medical telemetry unit She complains to have some nausea but denies any abdominal pain She has had issues with swallowing of pills yesterday and this morning Has had evaluation by the speech and advised to continue with soft diet Denies any fever and/or chills and feels a little better compared with admission 12/06/2020 The patient was seen and examined in telemetry unit I took care of her for 2 days during my last hospitalist rounding session She was moved to telemetry unit last night on intravenous amiodarone due to atrial fibrillation with rapid ventricular response and low blood pressure She remains weak and lethargic as of this morning but denies any chest pain, palpitation, abdominal pain, nausea no vomiting, or any increasing shortness of breath 12/07/2020 The patient was seen and examined in telemetry unit She has been very depressed and does not want to live anymore After a long discussion she managed to smile and wants to try to eat and drink a little bit Complains to profound weakness but denies any other significant symptoms except ongoing anorexia Review of Systems Review of Systems: All systems reviewed and are unremarkable as noted below Gastrointestinal: + nausea; no abdominal pain and no bloating Neurologic: + generalized weakness Physical Exam Physical Exam: Lying in bed comfortably very depressed Constitutional: + ill appearing and + thin Eyes: PERRL, conjunctivae normal, anicteric sclerae ENMT: external ear and nose normal, oropharynx normal Neck: trachea midline, no thyromegaly Respiratory: no respiratory distress Auscultation: + diminished lung sounds and + crackles (Minimal crackles at the bases) Cardiovascular: Rate/Rhythm: + irregularly irregular Heart Sounds: + murmur (2/6 ESM over precordium) Gastrointestinal (Abdomen): Inspection/Auscultation: normal bowel sounds; abdomen not distended Percussion/Palpation: abdomen soft; abdomen nontender Musculoskeletal: No acute arthritis in any joint Neurologic: Alert, awake and oriented x3, extremely weak and lethargic. Moving all limbs Lymphatic: no cervical or axillary lymphadenopathy Results & Data Results & Data ([facility]) Vital Signs (Past 12 Hours) Vital Signs Temp Pulse Resp BP Pulse Ox 12/07/20 16:02 36.3 C L 91 H 17 124/70 98 12/07/20 11:13 36.3 C L 17 130/71 12/07/20 07:24 36.7 C 85 16 114/67 94 Laboratory Results Short CBC 12/07/20 Range/Units 05:36 WBC 7.32 (4.8-10.8) K/uL Hgb 9.0 L (12.0-16.0) g/dL Hct 29.5 L (37-47) % Plt Count 126 L (130-400) K/uL BMP 12/07/20 05:36 Sodium 138 Potassium 3.7 D Chloride 105 Carbon Dioxide 27 BUN 17 Creatinine 2.62 H D Glucose 111 H Calcium 8.0 L Medications Administered Current Inpatient Medications Acetaminophen (Acetaminophen 325 Mg Tab) 650 mg PO Q4H PRN PRN Reason: Pain or Fever Stop: 12/26/20 07:24 Aripiprazole (Aripiprazole 1 Mg/Ml Oral Soln 150 Ml Btl) 2 mg PO QAM [facility] Stop: 12/26/20 08:59 Last Admin: 12/07/20 08:42 Dose: Not Given Documented by: Calcium Acetate (Calcium Acetate 667 Mg Cap/Tab) 667 mg PO TIDM [facility] Stop: 12/26/20 07:59 Last Admin: 12/07/20 11:41 Dose: Not Given Documented by: Clopidogrel Bisulfate (Clopidogrel Bisulfate 75 Mg Tab) 75 mg PO QAM [facility] Stop: 12/26/20 08:59 Last Admin: 12/07/20 08:47 Dose: 75 mg Documented by: Docusate Sodium (Docusate Sodium 100 Mg Cap) 100 mg PO QAM PRN PRN Reason: Constipation Stop: 12/26/20 07:24 Last Admin: 11/26/20 08:23 Dose: 100 mg Documented by: Dronabinol (Dronabinol 2.5 Mg Cap) 2.5 mg PO DAILY [facility] Stop: 01/05/21 08:59 Last Admin: 12/07/20 08:45 Dose: 2.5 mg Documented by: Fluoxetine HCl (Fluoxetine Hcl 20 Mg Cap) 20 mg PO QAM [facility] Stop: 12/26/20 08:59 Last Admin: 12/07/20 08:41 Dose: Not Given Documented by: Fluoxetine HCl (Fluoxetine Hcl 10 Mg Cap) 10 mg PO QAM [facility] Stop: 12/26/20 08:59 Last Admin: 12/07/20 08:42 Dose: Not Given Documented by: Heparin Sodium (Porcine) (Heparin Sod 5,000 Unit/0.5 Ml Vial) 5,000 units SQ Q12 [facility] Stop: 12/30/20 10:49 Last Admin: 12/07/20 08:47 Dose: 5,000 units Documented by: Amiodarone HCl/Dextrose (Nexterone / D5w) 360 mg in 200 mls @ 16.667 mls/hr IV .Q12H [facility] Stop: 01/05/21 12:39 Last Admin: 12/07/20 11:54 Dose: 0.5 mg/min, 16.7 mls/hr Documented by: Promethazine HCl 6.25 mg/ (Sodium Chloride) 50.25 mls @ 201 mls/hr IV Q6H PRN PRN Reason: Nausea And Vomiting Stop: 01/05/21 06:26 Insulin Aspart (Insulin Aspart 100 Units/Ml 3 Ml Pen) 0 units SC ACHS [facility] Stop: 12/26/20 07:29 Last Admin: 12/07/20 11:54 Dose: Not Given Documented by: Levothyroxine Sodium (Levothyroxine Sodium 200 Mcg Tablet) 200 mcg PO DAILYBB [facility] Stop: 12/26/20 07:59 Last Admin: 12/07/20 05:40 Dose: Not Given Documented by: Loratadine (Loratadine 10 Mg Tab) 10 mg PO QAM [facility] Stop: 12/26/20 08:59 Last Admin: 12/07/20 08:41 Dose: Not Given Documented by: Metoprolol Succinate (Metoprolol Succ 50mg Ext Rel Tab) 50 mg PO BID [facility] Stop: 01/05/21 08:59 Last Admin: 12/07/20 08:47 Dose: 50 mg Documented by: Nitroglycerin (Nitroglycerin Sl 0.4 Mg/Tab Tab) 0.4 mg SL UD PRN PRN Reason: Chest Pain Stop: 12/26/20 07:24 Tramadol HCl (Tramadol Hcl 50 Mg Tablet) 50 mg PO HS PRN PRN Reason: leg pain Stop: 12/26/20 07:24 Vitamin B Complex/Folic Acid (Nephrocaps) 1 cap PO [facility] Stop: 12/26/20 20:59 Last Admin: 12/06/20 21:29 Dose: Not Given Documented by: Vitamin D (Cholecalciferol 1,000 Units 25 Mcg Tab) [facility] Stop: 12/26/20 08:59 Last Admin: 12/07/20 08:42 Dose: Not Given Documented by: Zinc Sulfate (Zinc Sulfate 220 Mg Capsule) 220 mg PO HS [facility] Stop: 12/26/20 20:59 Last Admin: 12/06/20 21:29 Dose: Not Given Documented by: (1) Diabetes mellitus, type II 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
[2020-12-07] MEDS: AMIODARONE 200 MG TAB PO SCH (17:55)
[2020-12-07] MEDS ORDERED: LORazepam 0.5 MG TAB PO STA ×2 (19:45→22:15)
[2020-12-07] MEDS: ZINC SULFATE 220 MG CAPSULE PO SCH (22:15)
[2020-12-07] MEDS: NEPHROCAPS PO SCH (22:15)
[2020-12-08] MEDS: AMIODARONE / D5W 360 MG/200 ML BAG IV SCH ×2 (06:05→12:35)
[2020-12-08] MEDS: LEVOTHYROXINE SODIUM 200 MCG TABLET PO SCH (06:07)
[2020-12-08] MEDS ORDERED: SODIUM CHLORIDE 0.9% 1000ML 1,000 ML IV PRN (07:50)
[2020-12-08] MEDS ORDERED: HEPARIN SOD (PORCINE) 1000 UNIT/ML IV ONE (07:50)
[2020-12-08] MEDS: INSULIN ASPART 100 UNITS/ML 3 ML PEN SC SCH ×4 (07:54→21:00)
[2020-12-08] MEDS ORDERED: EPOETIN ALFA 4,000 UNIT/ML VIAL IV SCH (08:00)
--- NOTE | 2020-12-08 08:20 | Palliative Care Progress Note ---
Date of Service 12/07/20 December 08, 2020 Assessment & Plan (1) Palliative care encounter: I met with Jemma and her family to follow up on conversation from 12/06 about goals of care. Her is at bedside. Family is considering home with hospice care. We discussed support involved with hospice and that she would need /7 care at home. Her is not able to care for her at home but her daughter thinks that they can take turns to provide the support that she needs. Jemma asked about symptom management and whether she would have pain. I assured her that we would do everything that we could to manage her symptoms. We again discussed the likely trajectory and prognosis if she continues dialysis vs stopping dialysis. She has another son arriving in town on 12/08 and would like to talk with him before deciding on her plan of care. Palliative care will follow. Admission and Anticipated Discharge Date Admission Date: November 26, 2020 Subjective Jemma has had virtually no po intake and gets very anxious when talking about eating. She denies nausea. She has not used prn antiemetic. Review of Systems Review of Systems: [place] Symptom Assessment Scale Pain 1/3 Dyspnea 0/3 Anxiety 2/3 Fatigue 3/3 Drowsiness 1/3 Anorexia 3/3 Palliative Performance Score 30% Physical Exam Constitutional: + ill appearing and + thin ENMT: Mouth: + dry oral mucous membranes Respiratory: normal respiratory effort; no labored breathing Cardiovascular: trace pedal edema Gastrointestinal (Abdomen): Inspection/Auscultation: abdomen not distended Musculoskeletal: Extremities: + muscle atrophy Neurologic: awake; not confused Results & Data ([facility]) Vital Signs (Past 12 Hours) Vital Signs Temp Pulse Resp BP BP Pulse Ox 12/08/20 03:41 98.2 F 67 16 122/62 92 12/07/20 23:32 97.9 F 64 17 125/66 96 PG Care Time/CCT Total # of Minutes Spent Total Time Spent with Patient: Total time spent is greater than 50% in coordination of care (as documented) at patient's floor/unit and/or counseling patient: Total time spent 35 minutes with more than 50% of time spent on prognosis, hospice, symptom management, patient and family education Coding Level of Care Code 98160 Subseq Hosp Care Lvl 3 Diagnoses Palliative care encounter Z51.5
[2020-12-08] MEDS: CLOPIDOGREL BISULFATE 75 MG TAB PO SCH (08:44)
[2020-12-08] MEDS: AMIODARONE 200 MG TAB PO SCH ×2 (08:44→18:25)
[2020-12-08] MEDS: CALCIUM ACETATE 667 MG CAP/TAB PO SCH ×3 (08:53→18:19)
[2020-12-08] MEDS: ARIPIprazole 1 MG/ML ORAL SOLN 150 ML BTL PO SCH (08:53)
[2020-12-08] MEDS: FLUoxetine HCL 20 MG CAP PO SCH (08:54)
[2020-12-08] MEDS: FLUoxetine HCL 10 MG CAP PO SCH (08:54)
[2020-12-08] MEDS: CHOLECALCIFEROL 1,000 UNITS 25 MCG TAB PO SCH (08:54)
[2020-12-08] MEDS: LORATADINE 10 MG TAB PO SCH (08:55)
[2020-12-08] MEDS: HEPARIN SOD 5,000 UNIT/0.5 ML VIAL SQ SCH ×2 (08:55→21:49)
[2020-12-08] MEDS: METOPROLOL SUCC 50MG EXT REL TAB PO SCH ×2 (08:56→21:52)
--- NOTE | 2020-12-08 12:12 | Hospitalist Progress Note ---
Date of Service December 08, 2020 Assessment & Plan (1) Abdominal pain: Abdominal pain is after food intake and is described as acute for the past 3-4 weeks. Timing went along with initiation of Remeron which has been stopped. Significant weight loss is present and patient has well-known underlying depression that is likely contributing. CT performed on admission but without contrast-reveals pneumatosis intestinalis. No convincing evidence for acute bowel ischemia incl normal stool, intermittent pain, and clear CTA of the abdomen did not show any major vessel thrombosis and obstruction to suggest ischemic bowel Has nonspecific colitis without any definitive abscess Has been on Marinol since yesterday to increase appetite Denies any more abdominal pain but remains anorexic Trying to eat some food and not been having any problem Still has significant anorexia Palliative care encounter Appreciate palliative care input and recommendation Will have a family meeting and further management plan will be outlined All of her sons is coming from out of state to have additional meeting with the palliative care team Most likely she will be going home with hospice care (2) Colitis: nonspecific colitis that appears to be improving on serial CT imaging. Completed course of antibiotics and is feeling better from this standpoint. No other signs and or symptoms of infection (3) Pneumatosis intestinalis: appears to have resolved on updated scan. (4) Abnormal LFTs: Possibly secondary to medications (Remeron), which has been stopped. Trending down. Followup as outpatient with PCP. We will monitor LFTs since amiodarone has been started (5) Atrial fibrillation: Persistent afib with some RVR-she is dry and not taking in enough fluids. Ultrafiltration was cut back recently. Per Nephrology, she appears to be at her baseline hemodynamically including periods of hypotension and tachycardia. She has been seen in the Cardiology clinic for the past 6 months with recent adjustments in her beta opal. She was transitioned from Coreg to Metoprolol in Jun 2020 and titrated up to her current dose in October 2020. She remains tachycardic with intermittent heart rates in the 120-130s. Cont to encourage hydration by mouth. A. fib with RVR last night With systolic blood pressure at around 70s No improvement of her condition with intravenous digoxin and also IV fluid boluses She was started with intravenous amiodarone and was transferred to telemetry unit Blood pressure seems to be stable this morning and the heart rate is stable too Will have amiodarone 400 mg p.o. twice daily after completion of IV amiodarone Rate seems to be controlled and is 98 as of this morning (6) Severe protein-calorie malnutrition: Significant weight loss, likely multifactorial etiology including multiple comorbidities, severe depression and poor PO intake in recent months. Remeron has been stopped. Still uncertain etiology of recent abdominal pain prompting admission. Failure to thrive picture. Appreciate palliative care input and recommendation Advised to eat and drink as little as she can She has been trying to eat and drink as much as she can (7) Generalized weakness: Poor PO intake, PT/OT evaluation-recommend SNF which she and her family are considering. (8) End-stage renal disease on hemodialysis: Has been on hemodialysis and will continue //Sat regimen We will continue hemodialysis (9) Diabetes mellitus, type II: SSI, minimal insulin required. (10) DVT prophylaxis: heparin CODE STATUS Changed to DNR by my previous hospitalist after discussion with the patient Remains DNR for now Family members and the palliative team are going to be meeting soon regarding further management plan Admission and Anticipated Discharge Date Admission Date: November 26, 2020 Subjective 11/27/2020 The patient was seen and examined in medical telemetry unit She has been complaining of nausea without any vomiting and the abdominal pain is almost gone Remains generally weak and lethargic Has been feeling much better overall 11/28/2020 The patient was seen and examined in medical telemetry unit She complains to have some nausea but denies any abdominal pain She has had issues with swallowing of pills yesterday and this morning Has had evaluation by the speech and advised to continue with soft diet Denies any fever and/or chills and feels a little better compared with admission 12/06/2020 The patient was seen and examined in telemetry unit I took care of her for 2 days during my last hospitalist rounding session She was moved to telemetry unit last night on intravenous amiodarone due to atrial fibrillation with rapid ventricular response and low blood pressure She remains weak and lethargic as of this morning but denies any chest pain, palpitation, abdominal pain, nausea no vomiting, or any increasing shortness of breath 12/07/2020 The patient was seen and examined in telemetry unit She has been very depressed and does not want to live anymore After a long discussion she managed to smile and wants to try to eat and drink a little bit Complains to profound weakness but denies any other significant symptoms except ongoing anorexia 12/08/2020 The patient was seen and examined in telemetry unit She remains weak and lethargic She gets a small amount of breakfast this morning She denies any other significant symptoms Review of Systems Review of Systems: All systems reviewed and are unremarkable as noted below Gastrointestinal: + nausea; no abdominal pain and no bloating Neurologic: + generalized weakness Physical Exam Physical Exam: Lying in bed comfortably Constitutional: + ill appearing and + thin Eyes: PERRL, conjunctivae normal, anicteric sclerae ENMT: external ear and nose normal, oropharynx normal Neck: trachea midline, no thyromegaly Respiratory: no respiratory distress Auscultation: + diminished lung sounds and + crackles (Minimal crackles at the bases) Cardiovascular: Rate/Rhythm: + irregularly irregular Heart Sounds: + murmur (2/6 ESM over precordium) Gastrointestinal (Abdomen): Inspection/Auscultation: normal bowel sounds; abdomen not distended Percussion/Palpation: abdomen soft; abdomen nontender Musculoskeletal: No acute arthritis in any joint Neurologic: Alert, awake and oriented x3. Generally weak and lethargic but has been moving all limbs equally Psychiatric: A+Ox3, euthymic affect Lymphatic: no cervical or axillary lymphadenopathy Results & Data Results & Data ([facility]) Vital Signs (Past 12 Hours) Vital Signs Temp Pulse Pulse Resp BP BP Pulse Ox 12/08/20 11:21 36.5 C 98 H 17 135/67 98 12/08/20 08:16 36.4 C L 93 H 16 118/77 97 12/08/20 03:41 36.8 C 67 16 122/62 92 Medications Administered Current Inpatient Medications Acetaminophen (Acetaminophen 325 Mg Tab) 650 mg PO Q4H PRN PRN Reason: Pain or Fever Stop: 12/26/20 07:24 Amiodarone HCl (Amiodarone 200 Mg Tab) 400 mg PO BIDM [facility] Stop: 01/06/21 16:59 Last Admin: 12/08/20 08:44 Dose: 400 mg Documented by: Aripiprazole (Aripiprazole 1 Mg/Ml Oral Soln 150 Ml Btl) 2 mg PO QAM [facility] Stop: 12/26/20 08:59 Last Admin: 12/08/20 08:53 Dose: Not Given Documented by: Calcium Acetate (Calcium Acetate 667 Mg Cap/Tab) 667 mg PO TIDM [facility] Stop: 12/26/20 07:59 Last Admin: 12/08/20 08:53 Dose: Not Given Documented by: Clopidogrel Bisulfate (Clopidogrel Bisulfate 75 Mg Tab) 75 mg PO QAM [facility] Stop: 12/26/20 08:59 Last Admin: 12/08/20 08:44 Dose: 75 mg Documented by: Docusate Sodium (Docusate Sodium 100 Mg Cap) 100 mg PO QAM PRN PRN Reason: Constipation Stop: 12/26/20 07:24 Last Admin: 11/26/20 08:23 Dose: 100 mg Documented by: Dronabinol (Dronabinol 2.5 Mg Cap) 2.5 mg PO DAILY [facility] Stop: 01/05/21 08:59 Last Admin: 12/08/20 08:52 Dose: 2.5 mg Documented by: Epoetin Manohar (Epoetin Manohar 4,000 Unit/Ml Vial) 4,000 units IV 0800 [facility] Stop: 12/08/20 16:00 Fluoxetine HCl (Fluoxetine Hcl 20 Mg Cap) 20 mg PO QAM [facility] Stop: 12/26/20 08:59 Last Admin: 12/08/20 08:54 Dose: Not Given Documented by: Fluoxetine HCl (Fluoxetine Hcl 10 Mg Cap) 10 mg PO QAM [facility] Stop: 12/26/20 08:59 Last Admin: 12/08/20 08:54 Dose: Not Given Documented by: Heparin Sodium (Porcine) (Heparin Sod 5,000 Unit/0.5 Ml Vial) 5,000 units SQ Q12 [facility] Stop: 12/30/20 10:49 Last Admin: 12/08/20 08:55 Dose: Not Given Documented by: Amiodarone HCl/Dextrose (Nexterone / D5w) 360 mg in 200 mls @ 16.667 mls/hr IV .Q12H [facility] Stop: 01/05/21 12:39 Last Admin: 12/08/20 06:05 Dose: Not Given Documented by: Promethazine HCl 6.25 mg/ (Sodium Chloride) 50.25 mls @ 201 mls/hr IV Q6H PRN PRN Reason: Nausea And Vomiting Stop: 01/05/21 06:26 Sodium Chloride (Nss 1000ml) 1,000 mls @ 0 mls/hr IV .Q0M PRN PRN Reason: For Hemodialysis Use ONLY Stop: 12/08/20 13:49 Insulin Aspart (Insulin Aspart 100 Units/Ml 3 Ml Pen) 0 units SC ACHS [facility] Stop: 12/26/20 07:29 Last Admin: 12/08/20 07:54 Dose: Not Given Documented by: Levothyroxine Sodium (Levothyroxine Sodium 200 Mcg Tablet) 200 mcg PO DAILYBB [facility] Stop: 12/26/20 07:59 Last Admin: 12/08/20 06:07 Dose: Not Given Documented by: Loratadine (Loratadine 10 Mg Tab) 10 mg PO QAM [facility] Stop: 12/26/20 08:59 Last Admin: 12/08/20 08:55 Dose: Not Given Documented by: Metoprolol Succinate (Metoprolol Succ 50mg Ext Rel Tab) 50 mg PO BID [facility] Stop: 01/05/21 08:59 Last Admin: 12/08/20 08:56 Dose: Not Given Documented by: Nitroglycerin (Nitroglycerin Sl 0.4 Mg/Tab Tab) 0.4 mg SL UD PRN PRN Reason: Chest Pain Stop: 12/26/20 07:24 Tramadol HCl (Tramadol Hcl 50 Mg Tablet) 50 mg PO HS PRN PRN Reason: leg pain Stop: 12/26/20 07:24 Vitamin B Complex/Folic Acid (Nephrocaps) 1 cap PO [facility] Stop: 12/26/20 20:59 Last Admin: 12/07/20 22:15 Dose: Not Given Documented by: Vitamin D (Cholecalciferol 1,000 Units 25 Mcg Tab) 5,000 units PO [facility] Stop: 12/26/20 08:59 Last Admin: 12/08/20 08:54 Dose: Not Given Documented by: Zinc Sulfate (Zinc Sulfate 220 Mg Capsule) 220 mg PO [facility] Stop: 12/26/20 20:59 Last Admin: 12/07/20 22:15 Dose: Not Given Documented by: (1) Diabetes mellitus, type II Diabetes mellitus assisted insulin use: unspecified assisted insulin use status Diabetes mellitus complication status: with kidney complications Diabetes mellitus complication detail: with chronic kidney disease Chronic kidney disease stage: stage 3 (moderate) Qualified Code(s): E11.22 - Type 2 diabetes mellitus with diabetic chronic kidney disease; N18.3 - Chronic kidney disease, stage 3 (moderate)
[2020-12-08 14:38] LABS: Hematocrit (blood only) 32.4 % (37-47); Hemoglobin 10.1 g/dL (12.0-16.0); Mean Corpuscular Hemoglobin 32.3 pg (25-34); Mean Corpuscular Volume 103.5 fL (80-100); Mean Platelet Volume 9.3 fL (7.4-10.4); Platelet Count 128 K/uL (130-400); RDW Standard Deviation 71.4 fL (36.4-46.3); Red Blood Count 3.13 M/uL (4.2-5.4); White Blood Count 6.47 K/uL (4.8-10.8)
[2020-12-08 14:42] LABS: Mean Corpuscular Hgb Conc 31.2 g/dL (32-36)
[2020-12-08 14:58] LABS: BUN Creatinine Ratio 7.5 (10-20); Calcium 8.4 mg/dl (8.5-10.1); Creatinine Clr Calc Pharmacy 10.5 ml/min; Est GFR (African American) 12.7 ml/min; Est GFR (Non-African American) 10.9 ml/min; Potassium 3.8 mmol/L (3.5-5.1)
[2020-12-08] MEDS: HEPARIN SOD (PORCINE) 1000 UNIT/ML IV SCH ×2 (16:11→16:12)
--- NOTE | 2020-12-08 18:23 | Dialysis Progress Note ---
Date of Service December 08, 2020 Assessment & Plan (1) ESRD (end stage renal disease): She is Saturday dialysis patient at [facility] for HD today w/ low UF goal 750 mL as HR/ bp allow, 3.25 hr -goals of care talk as below; next tx tentatively 12/10 -gave 4K epo today -recommend bmp daily; cbc could be q 48 hrs (2) Atrial fibrillation with tachycardic ventricular rate: tachycardia resolved since starting amiodarone, at least so far and w/ better sBP as well; chronic issue for her and worse here until recently-- not uncommon on HD to have HR 90-120s w/ barely maintained bp; we walk a very fine line between fluid overload and fluid depletion historically > starting to be a bit OL; transitioning to po amio (3) Severe protein-calorie malnutrition: longstanding challenge for her, worse recently/this admission; per primary service (4) Generalized weakness: chronic issue for her and worse here -- worse w/ her even poorer po intake; we walk a very fine line between fluid overload and fluid depletion but she is currently dry (5) Goals of care, counseling/discussion: did talk to pt today again about possibility of changing goals of care to stop dialysis; she has always had failure to thrive which has in past weeks worsened; will cont to work on reversible causes but she may also opt soon to withdraw; she is considering withdrawing from dialysis; conversation/decision supported by palliative and primary services as well as nephro; also family involvement -will continue to discuss Admission and Anticipated Discharge Date Admission Date: November 26, 2020 Subjective seen on dialysis. son and grandson at bedside. pt feels a bit stronger, states for first time in a long while has an appetite; notes her legs are heavier Review of Systems Review of Systems: All systems reviewed & are unremarkable except as noted in Subjective Physical Exam Constitutional: well developed, + thin, + frail appearing and cooperative looks more tired than previous days Eyes: EOM intact bilaterally ENMT: Ears: no external ear abnormality Nose: no external nose abnormality Mouth: + dry oral mucous membranes Neck: no nuchal rigidity Respiratory: normal respiratory effort Auscultation: + diminished lung sounds Cardiovascular: Rate/Rhythm: regular rate and regular rhythm Extremities: + edema (1+ BLE) Gastrointestinal (Abdomen): Inspection/Auscultation: normal bowel sounds; a bdomen not distended Percussion/Palpation: abdomen soft; abdomen nontender Musculoskeletal: Extremities: strength 5/5 throughout Skin: no rashes, warm and dry Psychiatric: Orientation: alert and oriented x 3 Speech: normal rate/rhythm/volume of speech Affect: + flat affect Results & Data ([facility]) Vital Signs (Past 12 Hours) Vital Signs Temp Pulse Pulse Pulse Resp BP BP 12/08/20 18:08 36.6 C 94 H 18 127/62 12/08/20 17:40 36.5 C 80 133/77 12/08/20 17:20 113 H 130/82 12/08/20 17:00 80 100/70 12/08/20 16:40 78 148/66 H 12/08/20 16:20 79 126/75 12/08/20 16:00 72 135/70 12/08/20 15:50 85 12/08/20 15:40 89 135/75 12/08/20 15:20 93 H 122/69 12/08/20 15:00 74 131/72 12/08/20 14:40 77 141/78 H 12/08/20 14:15 36.5 C 75 12/08/20 11:21 36.5 C 98 H 17 135/67 12/08/20 08:16 36.4 C L 93 H 16 118/77 12/08/20 08:00 89 Pulse Ox 12/08/20 18:08 96 12/08/20 17:40 12/08/20 17:20 12/08/20 17:00 12/08/20 16:40 12/08/20 16:20 12/08/20 16:00 12/08/20 15:50 12/08/20 15:40 12/08/20 15:20 12/08/20 15:00 12/08/20 14:40 12/08/20 14:15 12/08/20 11:21 98 12/08/20 08:16 97 12/08/20 08:00 Laboratory Results 12/08/20 14:32 12/08/20 14:32
--- NOTE | 2020-12-08 19:20 | Cardiology Progress Note ---
Date of Service December 08, 2020 Assessment & Plan (1) Atrial fibrillation with tachycardic ventricular rate: Complex patient admitted with acute abdominal issues possible mesenteric ischemia with slowly improving functional status however persistent anorexia and now hypotension with orthostasis, elevated atrial fibrillation ventricular response rates. Recommendations: Unfortunately, given the patient's current clinical status our options are significantly limited in terms of treatment of her atrial fibrillation. Amiodarone is indicated and has been beneficial for the patient overnight with rates improvement. However, there is a concern that should she convert to normal sinus rhythm then cardioembolic event may occur. This risk was discussed with the patient as well without lack of other viable treatment options given her clinical status and she is in agreement with continuation of the amiodarone. has been transitioned to po amio, tolerating cont 400mg po bid for a total of 3 days then 400mg po daily not an anticoagulation candidate. 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 Belgica GRIFFIN, with the following additions: - Eating with less to no pain - Follow LFT's - Consider MRCP Subjective Pt seen and examined, chart reviewed. States that she continues to be fatigued but denies cardiac complaint of cp, sob, palpitations or lightheadedness. Tolerating po amio. Tele reviewed: afib in the s. Review of Systems Review of Systems: All systems reviewed & are unremarkable except as noted in HPI & below Results & Data ([facility]) Vital Signs (Past 12 Hours) Vital Signs Temp Pulse Pulse Pulse Resp BP BP 12/08/20 18:08 36.6 C 94 H 18 127/62 12/08/20 17:40 36.5 C 80 133/77 12/08/20 17:20 113 H 130/82 12/08/20 17:00 80 100/70 12/08/20 16:40 78 148/66 H 07/08/21 16:20 79 126/75 12/08/20 16:00 72 135/70 12/08/20 15:50 85 12/08/20 15:40 89 135/75 12/08/20 15:20 93 H 122/69 12/08/20 15:00 74 131/72 12/08/20 14:40 77 141/78 H 12/08/20 14:15 36.5 C 75 12/08/20 11:21 36.5 C 98 H 17 135/67 12/08/20 08:16 36.4 C L 93 H 16 118/77 12/08/20 08:00 89 Pulse Ox 12/08/20 18:08 96 12/08/20 17:40 12/08/20 17:20 12/08/20 17:00 12/08/20 16:40 12/08/20 16:20 12/08/20 16:00 12/08/20 15:50 12/08/20 15:40 12/08/20 15:20 12/08/20 15:00 12/08/20 14:40 12/08/20 14:15 12/08/20 11:21 98 12/08/20 08:16 97 12/08/20 08:00
[2020-12-08] MEDS ORDERED: LORazepam 0.5 MG TAB PO STA (20:29)
[2020-12-08] MEDS: NEPHROCAPS PO SCH (21:50)
[2020-12-08] MEDS: ZINC SULFATE 220 MG CAPSULE PO SCH (21:50)
[2020-12-09] MEDS: LEVOTHYROXINE SODIUM 200 MCG TABLET PO SCH (05:35)
[2020-12-09] MEDS: INSULIN ASPART 100 UNITS/ML 3 ML PEN SC SCH ×4 (08:11→20:51)
[2020-12-09] MEDS: CLOPIDOGREL BISULFATE 75 MG TAB PO SCH (08:12)
[2020-12-09] MEDS: AMIODARONE 200 MG TAB PO SCH ×2 (08:12→17:57)
[2020-12-09] MEDS: HEPARIN SOD 5,000 UNIT/0.5 ML VIAL SQ SCH ×2 (08:13→20:49)
[2020-12-09] MEDS: METOPROLOL SUCC 50MG EXT REL TAB PO SCH ×2 (08:14→20:49)
[2020-12-09] MEDS: FLUoxetine HCL 20 MG CAP PO SCH (08:16)
[2020-12-09] MEDS: FLUoxetine HCL 10 MG CAP PO SCH (08:16)
[2020-12-09] MEDS: ARIPIprazole 1 MG/ML ORAL SOLN 150 ML BTL PO SCH (08:16)
[2020-12-09] MEDS: CALCIUM ACETATE 667 MG CAP/TAB PO SCH ×3 (08:16→17:33)
[2020-12-09] MEDS: CHOLECALCIFEROL 1,000 UNITS 25 MCG TAB PO SCH (08:16)
[2020-12-09] MEDS: LORATADINE 10 MG TAB PO SCH (08:16)
--- NOTE | 2020-12-09 11:57 | Palliative Care Progress Note ---
Date of Service December 09, 2020 Assessment & Plan (1) Palliative care encounter: Jemma has considered her options and discussed them with her family. She is feeling anxious today and has many questions about what will happen to her both at home and after her . We discussed hospice support for her at home and I assured her that her would be able to get medicines for pain and anxiety, even if she were not able to swallow them. I spoke with her daughter, Guerda, on the phone and we reviewed my conversation with Jemma today. They are supportive of her decision to stop dialysis and go home with hospice care. Plan would be for Jmema to have dialysis as scheduled tomorrow and then return home when hospice is arranged. Notified case management. (2) Severe protein-calorie malnutrition: (3) Generalized weakness: (4) ESRD (end stage renal disease): Admission and Anticipated Discharge Date Admission Date: November 26, 2020 Subjective Feeling very weak today. Complains of dry mouth. Review of Systems Review of Systems: [place] Symptom Assessment Scale Pain 0/3 Anxiety 2/3 Dyspnea 0/3 Fatigue 3/3 Nausea 0/3 Drowsiness 0/3 Palliative Performance Score 30% Physical Exam ENMT: Mouth: + dry oral mucous membranes Respiratory: no labored breathing Gastrointestinal (Abdomen): Percussion/Palpation: abdomen nontender Musculoskeletal: Extremities: + muscle atrophy Neurologic: awake; not confused Psychiatric: Orientation: alert and oriented x 3 Affect: + anxious affect Mood: + anxious mood Results & Data ([facility]) Vital Signs (Past 12 Hours) Vital Signs Temp Pulse Pulse Pulse Resp BP Pulse Ox 12/09/20 11:42 97.5 F L 92 H 18 140/84 95 12/09/20 07:51 97.7 F 101 H 18 120/78 96 12/09/20 07:00 87 12/09/20 03:59 97.7 F 64 20 114/59 L 94 12/09/20 02:18 84 PG Care Time/CCT Total # of Minutes Spent Total Time Spent with Patient: Total time spent is greater than 50% in coordination of care (as documented) at patient's floor/unit and/or counseling patient: total time spent 40 minutes with more than 50% of time spent on goals of care, symptom management, patient and family education Coding Level of Care Code 01016 Subseq Hosp Care Lvl 3 Diagnoses Palliative care encounter Z51.5 Severe protein-calorie malnutrition E43 Generalized weakness R53.1 ESRD (end stage renal disease) N18.6
--- NOTE | 2020-12-09 14:04 | Cardiology Progress Note ---
Date of Service December 09, 2020 Assessment & Plan (1) Atrial fibrillation with tachycardic ventricular rate: Complex patient admitted with acute abdominal issues possible mesenteric ischemia with slowly improving functional status however persistent anorexia and now hypotension with orthostasis, elevated atrial fibrillation ventricular response rates. Recommendations: Unfortunately, given the patient's current clinical status our options are significantly limited in terms of treatment of her atrial fibrillation. Amiodarone is indicated and has been beneficial for the patient overnight with rates improvement. However, there is a concern that should she convert to normal sinus rhythm then cardioembolic event may occur. This risk was discussed with the patient as well without lack of other viable treatment options given her clinical status and she is in agreement with continuation of the amiodarone. has been transitioned to po amio, tolerating cont 400mg po bid for a total of 3 days then 400mg po daily not an anticoagulation candidate. recommend hospice, appreciate input from Palliative Care colleague We will sign off. 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 States that she continues to be fatigued but denies cardiac complaint of cp, sob, palpitations or lightheadedness. Tolerating po amio. Tele reviewed: afib in the s. Review of Systems Review of Systems: All systems reviewed & are unremarkable except as noted in HPI & below Physical Exam Physical Exam: General: Awake, alert and oriented x 3. No acute distress. Frail and cachectic HEENT: Normocephalic, atraumatic. Pupils equal, round and reactive to light and accommodation. Extraocular muscles are intact. Anicteric sclera. Moist mucous membranes. Neck: No JVD. No bruit. Cardiovascular: irregularly irregular, unable to appreciate murmur, rub or gallop. Pulmonary: Clear to auscultation bilaterally. No rales, rhonchi, or wheezing. Abdomen: Bowel sounds x 4, soft. No rebound, guarding or tenderness. No organomegaly. Extremities: No clubbing, cyanosis or edema. +2 pedal pulses bilaterally. Skin: Warm and dry. Results & Data ([facility]) Vital Signs (Past 12 Hours) Vital Signs Temp Pulse Pulse Pulse Resp BP Pulse Ox 12/09/20 11:42 36.4 C L 92 H 18 140/84 95 12/09/20 07:51 36.5 C 101 H 18 120/78 96 12/09/20 07:00 87 12/09/20 03:59 36.5 C 64 20 114/59 L 94 12/09/20 02:18 84
--- NOTE | 2020-12-09 17:05 | Hospitalist Progress Note ---
Date of Service December 09, 2020 Assessment & Plan (1) Abdominal pain: Abdominal pain is after food intake and is described as acute for the past 3-4 weeks. Timing went along with initiation of Remeron which has been stopped. Significant weight loss is present and patient has well-known underlying depression that is likely contributing. CT performed on admission but without contrast-reveals pneumatosis intestinalis. No convincing evidence for acute bowel ischemia incl normal stool, intermittent pain, and clear CTA of the abdomen did not show any major vessel thrombosis and obstruction to suggest ischemic bowel Has nonspecific colitis without any definitive abscess Has been on Marinol since yesterday to increase appetite Denies any more abdominal pain but remains anorexic Trying to eat some food and not been having any problem Still has significant anorexia Remains reasonably stable Palliative care encounter Appreciate palliative care input and recommendation Will have a family meeting and further management plan will be outlined All of her sons is coming from out of state to have additional meeting with the palliative care team Appreciate palliative care reevaluation Patient will be discharged home on Saturday with hospice and discontinue dialysis (2) Colitis: nonspecific colitis that appears to be improving on serial CT imaging. Completed course of antibiotics and is feeling better from this standpoint. No other signs and or symptoms of infection (3) Pneumatosis intestinalis: appears to have resolved on updated scan. (4) Abnormal LFTs: Possibly secondary to medications (Remeron), which has been stopped. Trending down. Followup as outpatient with PCP. We will monitor LFTs since amiodarone has been started (5) Atrial fibrillation: Persistent afib with some RVR-she is dry and not taking in enough fluids. Ultrafiltration was cut back recently. Per Nephrology, she appears to be at her baseline hemodynamically including periods of hypotension and tachycardia. She has been seen in the Cardiology clinic for the past 6 months with recent adjustments in her beta opal. She was transitioned from Coreg to Metoprolol in Jun 2020 and titrated up to her current dose in October 2020. She remains tachycardic with intermittent heart rates in the 120-130s. Cont to encourage hydration by mouth. A. fib with RVR last night With systolic blood pressure at around 70s No improvement of her condition with intravenous digoxin and also IV fluid boluses She was started with intravenous amiodarone and was transferred to telemetry unit Blood pressure seems to be stable this morning and the heart rate is stable too Will have amiodarone 400 mg p.o. twice daily after completion of IV amiodarone Rate seems to be controlled and is 98 as of this morning Continue amiodarone (6) Severe protein-calorie malnutrition: Significant weight loss, likely multifactorial etiology including multiple comorbidities, severe depression and poor PO intake in recent months. Remeron has been stopped. Still uncertain etiology of recent abdominal pain prompting admission. Failure to thrive picture. Appreciate palliative care input and recommendation Advised to eat and drink as little as she can She has been trying to eat and drink as much as she can (7) Generalized weakness: Poor PO intake, PT/OT evaluation-recommend SNF which she and her family are considering. (8) End-stage renal disease on hemodialysis: Has been on hemodialysis and will continue //Sat regimen We will continue hemodialysis (9) Diabetes mellitus, type II: SSI, minimal insulin required. (10) DVT prophylaxis: heparin CODE STATUS Changed to DNR by my previous hospitalist after discussion with the patient Remains DNR for now Likely discharge on Saturday with home hospice Admission and Anticipated Discharge Date Admission Date: November 26, 2020 Subjective 11/27/2020 The patient was seen and examined in medical telemetry unit She has been complaining of nausea without any vomiting and the abdominal pain is almost gone Remains generally weak and lethargic Has been feeling much better overall 11/28/2020 The patient was seen and examined in medical telemetry unit She complains to have some nausea but denies any abdominal pain She has had issues with swallowing of pills yesterday and this morning Has had evaluation by the speech and advised to continue with soft diet Denies any fever and/or chills and feels a little better compared with admission 12/06/2020 The patient was seen and examined in telemetry unit I took care of her for 2 days during my last hospitalist rounding session She was moved to telemetry unit last night on intravenous amiodarone due to atrial fibrillation with rapid ventricular response and low blood pressure She remains weak and lethargic as of this morning but denies any chest pain, palpitation, abdominal pain, nausea no vomiting, or any increasing shortness of breath 12/07/2020 The patient was seen and examined in telemetry unit She has been very depressed and does not want to live anymore After a long discussion she managed to smile and wants to try to eat and drink a little bit Complains to profound weakness but denies any other significant symptoms except ongoing anorexia 12/08/2020 The patient was seen and examined in telemetry unit She remains weak and lethargic She gets a small amount of breakfast this morning She denies any other significant symptoms 12-09-20 The patient was seen and examined in telemetry unit She remains weak and lethargic She has been discussing with Dr. Padron for further management plan Review of Systems Review of Systems: All systems reviewed and are unremarkable as noted below Gastrointestinal: + nausea; no abdominal pain and no bloating Neurologic: + generalized weakness Physical Exam Physical Exam: Lying in bed comfortably Constitutional: + ill appearing and + thin Eyes: PERRL, conjunctivae normal, anicteric sclerae ENMT: external ear and nose normal, oropharynx normal Neck: trachea midline, no thyromegaly Respiratory: no respiratory distress Auscultation: + diminished lung sounds and + crackles (Minimal crackles at the bases) Cardiovascular: Rate/Rhythm: + irregularly irregular Heart Sounds: + murmur (2/6 ESM over precordium) Gastrointestinal (Abdomen): Inspection/Auscultation: normal bowel sounds; a bdomen not distended Percussion/Palpation: abdomen soft; abdomen nontender Musculoskeletal: No acute arthritis in any joint Psychiatric: A+Ox3, euthymic affect Lymphatic: no cervical or axillary lymphadenopathy Results & Data Results & Data ([facility]) Vital Signs (Past 12 Hours) Vital Signs Temp Pulse Pulse Pulse Resp BP Pulse Ox 12/09/20 15:46 36.6 C 87 20 146/77 H 95 12/09/20 11:42 36.4 C L 92 H 18 140/84 95 12/09/20 07:51 36.5 C 101 H 18 120/78 96 12/09/20 07:00 87 Laboratory Results Medications Administered Current Inpatient Medications Acetaminophen (Acetaminophen 325 Mg Tab) 650 mg PO Q4H PRN PRN Reason: Pain or Fever Stop: 12/26/20 07:24 Amiodarone HCl (Amiodarone 200 Mg Tab) 400 mg PO BIDM [facility] Stop: 01/06/21 16:59 Last Admin: 12/09/20 08:12 Dose: 400 mg Documented by: Aripiprazole (Aripiprazole 1 Mg/Ml Oral Soln 150 Ml Btl) 2 mg PO QAM [facility] Stop: 12/26/20 08:59 Last Admin: 12/09/20 08:16 Dose: Not Given Documented by: Calcium Acetate (Calcium Acetate 667 Mg Cap/Tab) 667 mg PO TIDM [facility] Stop: 12/26/20 07:59 Last Admin: 12/09/20 13:04 Dose: Not Given Documented by: Clopidogrel Bisulfate (Clopidogrel Bisulfate 75 Mg Tab) 75 mg PO QAM [facility] Stop: 12/26/20 08:59 Last Admin: 12/09/20 08:12 Dose: 75 mg Documented by: Docusate Sodium (Docusate Sodium 100 Mg Cap) 100 mg PO QAM PRN PRN Reason: Constipation Stop: 12/26/20 07:24 Last Admin: 11/26/20 08:23 Dose: 100 mg Documented by: Dronabinol (Dronabinol 2.5 Mg Cap) 2.5 mg PO DAILY [facility] Stop: 01/05/21 08:59 Last Admin: 12/09/20 08:11 Dose: 2.5 mg Documented by: Fluoxetine HCl (Fluoxetine Hcl 20 Mg Cap) 20 mg PO QAM [facility] Stop: 12/26/20 08:59 Last Admin: 12/09/20 08:16 Dose: Not Given Documented by: Fluoxetine HCl (Fluoxetine Hcl 10 Mg Cap) 10 mg PO QAM [facility] Stop: 12/26/20 08:59 Last Admin: 12/09/20 08:16 Dose: Not Given Documented by: Heparin Sodium (Porcine) (Heparin Sod 5,000 Unit/0.5 Ml Vial) 5,000 units SQ Q12 [facility] Stop: 12/30/20 10:49 Last Admin: 12/09/20 08:13 Dose: 5,000 units Documented by: Promethazine HCl 6.25 mg/ (Sodium Chloride) 50.25 mls @ 201 mls/hr IV Q6H PRN PRN Reason: Nausea And Vomiting Stop: 01/05/21 06:26 Insulin Aspart (Insulin Aspart 100 Units/Ml 3 Ml Pen) 0 units SC ACHS [facility] Stop: 12/26/20 07:29 Last Admin: 12/09/20 13:06 Dose: 2 units Documented by: Levothyroxine Sodium (Levothyroxine Sodium 200 Mcg Tablet) 200 mcg PO DAILYBB [facility] Stop: 12/26/20 07:59 Last Admin: 12/09/20 05:35 Dose: 200 mcg Documented by: Loratadine (Loratadine 10 Mg Tab) 10 mg PO QAM [facility] Stop: 12/26/20 08:59 Last Admin: 12/09/20 08:16 Dose: Not Given Documented by: Metoprolol Succinate (Metoprolol Succ 50mg Ext Rel Tab) 50 mg PO BID [facility] Stop: 01/05/21 08:59 Last Admin: 12/09/20 08:14 Dose: 50 mg Documented by: Nitroglycerin (Nitroglycerin Sl 0.4 Mg/Tab Tab) 0.4 mg SL UD PRN PRN Reason: Chest Pain Stop: 12/26/20 07:24 Tramadol HCl (Tramadol Hcl 50 Mg Tablet) 50 mg PO HS PRN PRN Reason: leg pain Stop: 12/26/20 07:24 Vitamin B Complex/Folic Acid (Nephrocaps) 1 cap PO HS [facility] Stop: 12/26/20 20:59 Last Admin: 12/08/20 21:50 Dose: 1 cap Documented by: Vitamin D (Cholecalciferol 1,000 Units 25 Mcg Tab) 5,000 units PO QAM [facility] Stop: 12/26/20 08:59 Last Admin: 12/09/20 08:16 Dose: Not Given Documented by: Zinc Sulfate (Zinc Sulfate 220 Mg Capsule) 220 mg PO HS [facility] Stop: 12/26/20 20:59 Last Admin: 12/08/20 21:50 Dose: Not Given Documented by: (1) Diabetes mellitus, type II Diabetes mellitus machine long goods helper insulin use: unspecified machine long goods helper insulin use status Diabetes mellitus complication status: with kidney complications Diabetes mellitus complication detail: with chronic kidney disease Chronic kidney disease stage: stage 3 (moderate) Qualified Code(s): E11.22 - Type 2 diabetes mellitus with diabetic chronic kidney disease; N18.3 - Chronic kidney disease, stage 3 (moderate)
[2020-12-09] MEDS ORDERED: LORazepam 0.5 MG TAB PO STA (20:15)
[2020-12-09] MEDS: ZINC SULFATE 220 MG CAPSULE PO SCH (20:50)
[2020-12-09] MEDS: NEPHROCAPS PO SCH (20:50)
[2020-12-10] MEDS: LEVOTHYROXINE SODIUM 200 MCG TABLET PO SCH (05:55)
[2020-12-10] MEDS: HEPARIN SOD 5,000 UNIT/0.5 ML VIAL SQ SCH ×2 (07:56→21:26)
[2020-12-10] MEDS: METOPROLOL SUCC 50MG EXT REL TAB PO SCH ×2 (07:57→21:25)
[2020-12-10] MEDS: AMIODARONE 200 MG TAB PO SCH ×2 (07:59→17:23)
[2020-12-10] MEDS: CLOPIDOGREL BISULFATE 75 MG TAB PO SCH (07:59)
[2020-12-10] MEDS ORDERED: SODIUM CHLORIDE 0.9% 1000ML 1,000 ML IV PRN (08:00)
[2020-12-10] MEDS: CALCIUM ACETATE 667 MG CAP/TAB PO SCH ×3 (08:00→17:23)
[2020-12-10] MEDS ORDERED: HEPARIN SOD (PORCINE) 1000 UNIT/ML IV ONE (08:00)
[2020-12-10] MEDS ORDERED: EPOETIN ALFA 4,000 UNIT/ML VIAL IV SCH (08:00)
[2020-12-10] MEDS: FLUoxetine HCL 10 MG CAP PO SCH (08:01)
[2020-12-10] MEDS: FLUoxetine HCL 20 MG CAP PO SCH (08:01)
[2020-12-10] MEDS: LORATADINE 10 MG TAB PO SCH (08:01)
[2020-12-10] MEDS: CHOLECALCIFEROL 1,000 UNITS 25 MCG TAB PO SCH (08:01)
[2020-12-10] MEDS: ARIPIprazole 1 MG/ML ORAL SOLN 150 ML BTL PO SCH (08:01)
[2020-12-10] MEDS: INSULIN ASPART 100 UNITS/ML 3 ML PEN SC SCH ×5 (08:03→21:00)
[2020-12-10] MEDS: HEPARIN SOD (PORCINE) 1000 UNIT/ML IV SCH (12:26)
--- NOTE | 2020-12-10 13:45 | Nephrology Progress Note ---
Date of Service December 10, 2020 Assessment & Plan (1) ESRD (end stage renal disease): She is Saturday dialysis patient at [facility] Patient tolerated dialysis well today. Next dialysis will be Saturday. -recommend bmp daily; cbc could be q 48 hrs (2) Atrial fibrillation with tachycardic ventricular rate: tachycardia resolved since starting amiodarone, at least so far and w/ better sBP as well; chronic issue for her and worse here until recently-- not uncommon on HD to have HR 90-120s w/ barely maintained bp; we walk a very fine line between fluid overload and fluid depletion historically > starting to be a bit OL; transitioning to po amio (3) Severe protein-calorie malnutrition: longstanding challenge for her, worse recently/this admission; per primary service (4) Generalized weakness: chronic issue for her and worse here -- worse w/ her even poorer po intake; we walk a very fine line between fluid overload and fluid depletion but she is currently dry (5) Goals of care, counseling/discussion: Family meeting planned to discuss goals of care. Patient would like to continue dialysis for now. -will continue to discuss Admission and Anticipated Discharge Date Admission Date: November 26, 2020 Subjective Seen in follow-up for ESRD. She had dialysis this morning. No shortness of breath. She complains of extreme weakness. Review of Systems Review of Systems: All systems reviewed & are unremarkable except as noted in HPI & below Physical Exam Physical Exam: General exam: Appears comfortable, no acute distress HEENT: Pupils are equal and reactive to light Neck: No JVD, neck is supple trachea is midline Respiratory system: Clear breath sounds bilaterally. Gastrointestinal: Abdomen is soft, non distended, non tender, bowel sounds are present CVS: Regular rate and rhythm. No murmurs, rubs or gallops Musculoskeletal: No joint or muscle tenderness Extremities: Non tender, no edema, peripheral pulses are present Neuro: Oriented, no tremors, no focal neurological deficits Skin: No rashes Access: PermCath Results & Data ([facility]) Vital Signs (Past 12 Hours) Vital Signs Temp Pulse Pulse Pulse Resp BP BP 12/10/20 12:29 36.5 C 97 H 12/10/20 12:00 78 116/68 12/10/20 11:40 100 H 104/73 12/10/20 11:20 81 102/67 12/10/20 11:00 75 112/66 12/10/20 10:40 82 107/69 12/10/20 10:20 76 149/77 H 12/10/20 10:00 76 142/84 H 12/10/20 09:40 102 H 107/65 12/10/20 09:20 73 123/67 12/10/20 09:00 80 139/85 12/10/20 08:47 36.4 C L 75 12/10/20 08:08 36.3 C L 82 18 146/84 H 12/10/20 07:00 78 12/10/20 03:57 70 12/10/20 03:37 36.4 C L 80 16 BP Pulse Ox 12/10/20 12:29 131/80 12/10/20 12:00 12/10/20 11:40 12/10/20 11:20 12/10/20 11:00 12/10/20 10:40 12/10/20 10:20 12/10/20 10:00 12/10/20 09:40 12/10/20 09:20 12/10/20 09:00 12/10/20 08:47 12/10/20 08:08 94 12/10/20 07:00 12/10/20 03:57 12/10/20 03:37 122/68 98 Laboratory Results 12/08/20 14:32
--- NOTE | 2020-12-10 15:40 | Hospitalist Progress Note ---
Date of Service December 10, 2020 Assessment & Plan (1) Abdominal pain: Abdominal pain is after food intake and is described as acute for the past 3-4 weeks. Timing went along with initiation of Remeron which has been stopped. Significant weight loss is present and patient has well-known underlying depression that is likely contributing. CT performed on admission but without contrast-reveals pneumatosis intestinalis. No convincing evidence for acute bowel ischemia incl normal stool, intermittent pain, and clear CTA of the abdomen did not show any major vessel thrombosis and obstruction to suggest ischemic bowel Has nonspecific colitis without any definitive abscess Has been on Marinol since yesterday to increase appetite Denies any more abdominal pain but remains anorexic Trying to eat some food and not been having any problem Denies any more abdominal pain Palliative care encounter Appreciate palliative care input and recommendation Will have a family meeting and further management plan will be outlined All of her sons is coming from out of state to have additional meeting with the palliative care team Appreciate palliative care reevaluation Patient will be discharged home on Saturday with hospice and discontinue dialysis Hospice nurse has been talking to the family members for transition to go home from hospital (2) Colitis: nonspecific colitis that appears to be improving on serial CT imaging. Completed course of antibiotics and is feeling better from this standpoint. No other signs and or symptoms of infection (3) Pneumatosis intestinalis: appears to have resolved on updated scan. (4) Abnormal LFTs: Possibly secondary to medications (Remeron), which has been stopped. Trending down. Followup as outpatient with PCP. We will monitor LFTs since amiodarone has been started (5) Atrial fibrillation: Persistent afib with some RVR-she is dry and not taking in enough fluids. Ultrafiltration was cut back recently. Per Nephrology, she appears to be at her baseline hemodynamically including periods of hypotension and tachycardia. She has been seen in the Cardiology clinic for the past 6 months with recent adjustments in her beta opal. She was transitioned from Coreg to Metoprolol in Jun 2020 and titrated up to her current dose in October 2020. She remains tachycardic with intermittent heart rates in the 120-130s. Cont to encourage hydration by mouth. A. fib with RVR last night With systolic blood pressure at around 70s No improvement of her condition with intravenous digoxin and also IV fluid boluses She was started with intravenous amiodarone and was transferred to telemetry unit Blood pressure seems to be stable this morning and the heart rate is stable too Will have amiodarone 400 mg p.o. twice daily after completion of IV amiodarone Rate seems to be controlled and is 98 as of this morning Continue amiodarone (6) Severe protein-calorie malnutrition: Significant weight loss, likely multifactorial etiology including multiple comorbidities, severe depression and poor PO intake in recent months. Remeron has been stopped. Still uncertain etiology of recent abdominal pain prompting admission. Failure to thrive picture. Appreciate palliative care input and recommendation Advised to eat and drink as little as she can She has been trying to eat and drink as much as she can (7) Generalized weakness: Poor PO intake, PT/OT evaluation-recommend SNF which she and her family are considering. (8) End-stage renal disease on hemodialysis: Has been on hemodialysis and will continue //Sat regimen We will continue hemodialysis (9) Diabetes mellitus, type II: SSI, minimal insulin required. (10) DVT prophylaxis: heparin CODE STATUS Changed to DNR by my previous hospitalist after discussion with the patient Remains DNR for now Likely discharge on Saturday with home hospice Admission and Anticipated Discharge Date Admission Date: November 26, 2020 Subjective 11/27/2020 The patient was seen and examined in medical telemetry unit She has been complaining of nausea without any vomiting and the abdominal pain is almost gone Remains generally weak and lethargic Has been feeling much better overall 11/28/2020 The patient was seen and examined in medical telemetry unit She complains to have some nausea but denies any abdominal pain She has had issues with swallowing of pills yesterday and this morning Has had evaluation by the speech and advised to continue with soft diet Denies any fever and/or chills and feels a little better compared with admission 12/06/2020 The patient was seen and examined in telemetry unit I took care of her for 2 days during my last hospitalist rounding session She was moved to telemetry unit last night on intravenous amiodarone due to atrial fibrillation with rapid ventricular response and low blood pressure She remains weak and lethargic as of this morning but denies any chest pain, palpitation, abdominal pain, nausea no vomiting, or any increasing shortness of breath 12/07/2020 The patient was seen and examined in telemetry unit She has been very depressed and does not want to live anymore After a long discussion she managed to smile and wants to try to eat and drink a little bit Complains to profound weakness but denies any other significant symptoms except ongoing anorexia 12/08/2020 The patient was seen and examined in telemetry unit She remains weak and lethargic She gets a small amount of breakfast this morning She denies any other significant symptoms 12-09-20 The patient was seen and examined in telemetry unit She remains weak and lethargic She has been discussing with Dr. Padron for further management plan 12/10/2020 The patient was seen and examined in telemetry unit She has been very lethargic Denies any other symptoms Voiding to go home with hospice Review of Systems Review of Systems: All systems reviewed and are unremarkable except as noted below Neurologic: + generalized weakness Physical Exam Physical Exam: Lying in bed comfortably but very anxious Constitutional: + ill appearing and + thin Eyes: PERRL, conjunctivae normal, anicteric sclerae ENMT: external ear and nose normal, oropharynx normal Neck: trachea midline, no thyromegaly Respiratory: no respiratory distress Auscultation: + diminished lung sounds and + crackles (Minimal crackles at the bases) Cardiovascular: Rate/Rhythm: + irregularly irregular Heart Sounds: + murmur (2/6 ESM over precordium) Gastrointestinal (Abdomen): Inspection/Auscultation: normal bowel sounds; abdomen not distended Percussion/Palpation: abdomen soft; abdomen nontender Musculoskeletal: No acute arthritis in any joint Neurologic: Alert, awake and oriented x3. Extremely weak and lethargic Psychiatric: A+Ox3, euthymic affect Lymphatic: no cervical or axillary lymphadenopathy Results & Data Results & Data ([facility]) Vital Signs (Past 12 Hours) Vital Signs Temp Pulse Pulse Pulse Resp BP BP 12/10/20 12:29 36.5 C 97 H 12/10/20 12:00 78 116/68 12/10/20 11:40 100 H 104/73 12/10/20 11:20 81 102/67 12/10/20 11:00 75 112/66 12/10/20 10:40 82 107/69 12/10/20 10:20 76 149/77 H 12/10/20 10:00 76 142/84 H 12/10/20 09:40 102 H 107/65 12/10/20 09:20 73 123/67 12/10/20 09:00 80 139/85 12/10/20 08:47 36.4 C L 75 12/10/20 08:08 36.3 C L 82 18 146/84 H 12/10/20 07:00 78 12/10/20 03:57 70 12/10/20 03:37 36.4 C L 80 16 BP Pulse Ox 12/10/20 12:29 131/80 12/10/20 12:00 12/10/20 11:40 12/10/20 11:20 12/10/20 11:00 12/10/20 10:40 12/10/20 10:20 12/10/20 10:00 12/10/20 09:40 12/10/20 09:20 12/10/20 09:00 12/10/20 08:47 12/10/20 08:08 94 12/10/20 07:00 12/10/20 03:57 12/10/20 03:37 122/68 98 Medications Administered Current Inpatient Medications Acetaminophen (Acetaminophen 325 Mg Tab) 650 mg PO Q4H PRN PRN Reason: Pain or Fever Stop: 12/26/20 07:24 Amiodarone HCl (Amiodarone 200 Mg Tab) 400 mg PO BIDM [facility] Stop: 01/06/21 16:59 Last Admin: 12/10/20 07:59 Dose: 400 mg Documented by: Aripiprazole (Aripiprazole 1 Mg/Ml Oral Soln 150 Ml Btl) 2 mg PO QAM [facility] Stop: 12/26/20 08:59 Last Admin: 12/10/20 08:01 Dose: Not Given Documented by: Calcium Acetate (Calcium Acetate 667 Mg Cap/Tab) 667 mg PO TIDM [facility]1983 Stop: 12/26/20 07:59 Last Admin: 12/10/20 12:25 Dose: Not Given Documented by: Clopidogrel Bisulfate (Clopidogrel Bisulfate 75 Mg Tab) 75 mg PO QAM [facility] Stop: 12/26/20 08:59 Last Admin: 12/10/20 07:59 Dose: 75 mg Documented by: Docusate Sodium (Docusate Sodium 100 Mg Cap) 100 mg PO QAM PRN PRN Reason: Constipation Stop: 12/26/20 07:24 Last Admin: 11/26/20 08:23 Dose: 100 mg Documented by: Dronabinol (Dronabinol 2.5 Mg Cap) 2.5 mg PO DAILY [facility] Stop: 01/05/21 08:59 Last Admin: 12/10/20 07:57 Dose: 2.5 mg Documented by: Epoetin Manohar (Epoetin Manohar 4,000 Unit/Ml Vial) 4,000 units IV TODAY [facility] Stop: 12/10/20 16:00 Last Admin: 12/10/20 12:26 Dose: 4,000 units Documented by: Fluoxetine HCl (Fluoxetine Hcl 20 Mg Cap) 20 mg PO QAM [facility] Stop: 12/26/20 08:59 Last Admin: 12/10/20 08:01 Dose: Not Given Documented by: Fluoxetine HCl (Fluoxetine Hcl 10 Mg Cap) 10 mg PO QAM [facility] Stop: 12/26/20 08:59 Last Admin: 12/10/20 08:01 Dose: Not Given Documented by: Heparin Sodium (Porcine) (Heparin Sod 5,000 Unit/0.5 Ml Vial) 5,000 units SQ Q12 [facility] Stop: 12/30/20 10:49 Last Admin: 12/10/20 07:56 Dose: 5,000 units Documented by: Promethazine HCl 6.25 mg/ (Sodium Chloride) 50.25 mls @ 201 mls/hr IV Q6H PRN PRN Reason: Nausea And Vomiting Stop: 01/05/21 06:26 Sodium Chloride (Nss 1000ml) 1,000 mls @ 0 mls/hr IV .Q0M PRN PRN Reason: For Hemodialysis Use ONLY Stop: 12/10/20 18:00 Insulin Aspart (Insulin Aspart 100 Units/Ml 3 Ml Pen) 0 units SC ACHS [facility] Stop: 12/26/20 07:29 Last Admin: 12/10/20 12:53 Dose: Not Given Documented by: Levothyroxine Sodium (Levothyroxine Sodium 200 Mcg Tablet) 200 mcg PO DAILYBB [facility] Stop: 12/26/20 07:59 Last Admin: 12/10/20 05:55 Dose: 200 mcg Documented by: Loratadine (Loratadine 10 Mg Tab) 10 mg PO QAM [facility] Stop: 12/26/20 08:59 Last Admin: 12/10/20 08:01 Dose: Not Given Documented by: Metoprolol Succinate (Metoprolol Succ 50mg Ext Rel Tab) 50 mg PO BID [facility] Stop: 01/05/21 08:59 Last Admin: 12/10/20 07:57 Dose: 50 mg Documented by: Nitroglycerin (Nitroglycerin Sl 0.4 Mg/Tab Tab) 0.4 mg SL UD PRN PRN Reason: Chest Pain Stop: 12/26/20 07:24 Tramadol HCl (Tramadol Hcl 50 Mg Tablet) 50 mg PO HS PRN PRN Reason: leg pain Stop: 12/26/20 07:24 Vitamin B Complex/Folic Acid (Nephrocaps) 1 cap PO HS LUZMARIA Stop: 12/26/20 20:59 Last Admin: 12/09/20 20:50 Dose: Not Given Documented by: Vitamin D (Cholecalciferol 1,000 Units 25 Mcg Tab) 5,000 units PO QAM LUZMARIA Stop: 12/26/20 08:59 Last Admin: 12/10/20 08:01 Dose: Not Given Documented by: Zinc Sulfate (Zinc Sulfate 220 Mg Capsule) 220 mg PO HS LUZMARIA Stop: 12/26/20 20:59 Last Admin: 12/09/20 20:50 Dose: Not Given Documented by: (1) Diabetes mellitus, type II Diabetes mellitus group home insulin use: unspecified group home insulin use status Diabetes mellitus complication status: with kidney complications Diabetes mellitus complication detail: with chronic kidney disease Chronic kidney disease stage: stage 3 (moderate) Qualified Code(s): E11.22 - Type 2 diabetes mellitus with diabetic chronic kidney disease; N18.3 - Chronic kidney disease, stage 3 (moderate)
[2020-12-10] MEDS: NEPHROCAPS PO SCH (21:24)
[2020-12-10] MEDS: LORazepam 1 MG TAB SL PRN (21:24)
[2020-12-10] MEDS: ZINC SULFATE 220 MG CAPSULE PO SCH (21:24)
[2020-12-11] MEDS: LEVOTHYROXINE SODIUM 200 MCG TABLET PO SCH (05:57)
[2020-12-11] MEDS: HEPARIN SOD 5,000 UNIT/0.5 ML VIAL SQ SCH ×2 (09:31→21:27)
[2020-12-11] MEDS: INSULIN ASPART 100 UNITS/ML 3 ML PEN SC SCH ×4 (09:31→21:27)
[2020-12-11] MEDS: FLUoxetine HCL 10 MG CAP PO SCH (09:31)
[2020-12-11] MEDS: CLOPIDOGREL BISULFATE 75 MG TAB PO SCH (09:31)
[2020-12-11] MEDS: METOPROLOL SUCC 50MG EXT REL TAB PO SCH ×2 (09:31→21:07)
[2020-12-11] MEDS: FLUoxetine HCL 20 MG CAP PO SCH (09:31)
[2020-12-11] MEDS: AMIODARONE 200 MG TAB PO SCH ×2 (09:31→17:56)
[2020-12-11] MEDS: CALCIUM ACETATE 667 MG CAP/TAB PO SCH ×3 (09:32→16:58)
[2020-12-11] MEDS: CHOLECALCIFEROL 1,000 UNITS 25 MCG TAB PO SCH (09:32)
[2020-12-11] MEDS: ARIPIprazole 1 MG/ML ORAL SOLN 150 ML BTL PO SCH (09:32)
[2020-12-11] MEDS: LORATADINE 10 MG TAB PO SCH (09:36)
--- NOTE | 2020-12-11 10:12 | Nephrology Progress Note ---
Date of Service December 11, 2020 Assessment & Plan (1) ESRD (end stage renal disease): She is Saturday dialysis patient at [facility] Patient tolerated dialysis well yesterday. Family meeting was held yesterday as well. Decision is to discharge patient home with hospice on Saturday. Patient does not want to continue dialysis at all. I have asked her if she wanted to have the PermCath removed, she agreed. I discussed the fact that without dialysis patient will in about a week. Patient understands. Patient also understands that should she change her decision, we will can always resume dialysis. -Remove PermCath -Renal will sign off. Please call back if goals of care change and patient would like to resume dialysis Admission and Anticipated Discharge Date Admission Date: November 26, 2020 Subjective Seen in follow-up for ESRD. She feels fine. Family meeting yesterday was held patient and family decided to go home with hospice on Saturday. Patient states she does not want to continue dialysis anymore. Patient is okay with removing the permacath Review of Systems Review of Systems: All systems reviewed & are unremarkable except as noted in HPI & below Physical Exam Physical Exam: General exam: Appears comfortable, no acute distress HEENT: Pupils are equal and reactive to light Neck: No JVD, neck is supple trachea is midline Respiratory system: Clear breath sounds bilaterally. Gastrointestinal: Abdomen is soft, non distended, non tender, bowel sounds are present CVS: Regular rate and rhythm. No murmurs, rubs or gallops Musculoskeletal: No joint or muscle tenderness Extremities: Non tender, no edema, peripheral pulses are present Neuro: Oriented, no tremors, no focal neurological deficits Skin: No rashes Access right IJ Results & Data ([facility]) Vital Signs (Past 12 Hours) Vital Signs Temp Pulse Pulse Pulse Resp BP BP 12/11/20 07:28 36.3 C L 80 17 131/72 12/11/20 03:09 36.2 C L 74 12 120/61 12/11/20 02:37 95 H 12/10/20 23:49 36.3 C L 90 12 121/74 Pulse Ox 12/11/20 07:28 100 12/11/20 03:09 95 12/11/20 02:37 12/10/20 23:49 97 Laboratory Results 12/08/20 14:32
--- NOTE | 2020-12-11 12:45 | Hospitalist Progress Note ---
Date of Service December 11, 2020 Assessment & Plan (1) Abdominal pain: Palliative care encounter Appreciate palliative care input and recommendation Will have a family meeting and further management plan will be outlined All of her sons is coming from out of state to have additional meeting with the palliative care team Appreciate palliative care reevaluation Patient will be discharged home on Saturday with hospice and discontinue dialysis Hospice nurse has been talking to the family members for transition to go home from hospital Remains stable with profound weakness Will be discharged home with hospice tomorrow Medications will be given as tolerated End-stage renal disease Hemodialysis has been stopped since yesterday 12/10/2020 Abdominal pain is after food intake and is described as acute for the past 3-4 weeks. Timing went along with initiation of Remeron which has been stopped. Significant weight loss is present and patient has well-known underlying depression that is likely contributing. CT performed on admission but without contrast-reveals pneumatosis intestinalis. No convincing evidence for acute bowel ischemia incl normal stool, intermittent pain, and clear CTA of the abdomen did not show any major vessel thrombosis and obstruction to suggest ischemic bowel Has nonspecific colitis without any definitive abscess Has been on Marinol since yesterday to increase appetite Denies any more abdominal pain but remains anorexic Trying to eat some food and not been having any problem Denies any more abdominal pain (2) Colitis: nonspecific colitis that appears to be improving on serial CT imaging. Completed course of antibiotics and is feeling better from this standpoint. No other signs and or symptoms of infection (3) Pneumatosis intestinalis: appears to have resolved on updated scan. (4) Abnormal LFTs: Possibly secondary to medications (Remeron), which has been stopped. Trending down. Followup as outpatient with PCP. We will monitor LFTs since amiodarone has been started (5) Atrial fibrillation: Persistent afib with some RVR-she is dry and not taking in enough fluids. Ultrafiltration was cut back recently. Per Nephrology, she appears to be at her baseline hemodynamically including periods of hypotension and tachycardia. She has been seen in the Cardiology clinic for the past 6 months with recent adjustments in her beta opal. She was transitioned from Coreg to Metoprolol in Jun 2020 and titrated up to her current dose in October 2020. She remains tachycardic with intermittent heart rates in the 120-130s. Cont to encourage hydration by mouth. A. fib with RVR last night With systolic blood pressure at around 70s No improvement of her condition with intravenous digoxin and also IV fluid boluses She was started with intravenous amiodarone and was transferred to telemetry unit Blood pressure seems to be stable this morning and the heart rate is stable too Will have amiodarone 400 mg p.o. twice daily after completion of IV amiodarone Rate seems to be controlled and is 98 as of this morning Continue amiodarone (6) Severe protein-calorie malnutrition: Significant weight loss, likely multifactorial etiology including multiple comorbidities, severe depression and poor PO intake in recent months. Remeron has been stopped. Still uncertain etiology of recent abdominal pain prompting admission. Failure to thrive picture. Appreciate palliative care input and recommendation Advised to eat and drink as little as she can She has been trying to eat and drink as much as she can (7) Generalized weakness: Poor PO intake, PT/OT evaluation-recommend SNF which she and her family are considering. (8) End-stage renal disease on hemodialysis: Has been on hemodialysis and will continue //Sat regimen We will continue hemodialysis (9) Diabetes mellitus, type II: SSI, minimal insulin required. (10) DVT prophylaxis: heparin CODE STATUS Changed to DNR by my previous hospitalist after discussion with the patient Remains DNR for now Likely discharge on Saturday with home hospice Admission and Anticipated Discharge Date Admission Date: November 26, 2020 Subjective 11/27/2020 The patient was seen and examined in medical telemetry unit She has been complaining of nausea without any vomiting and the abdominal pain is almost gone Remains generally weak and lethargic Has been feeling much better overall 11/28/2020 The patient was seen and examined in medical telemetry unit She complains to have some nausea but denies any abdominal pain She has had issues with swallowing of pills yesterday and this morning Has had evaluation by the speech and advised to continue with soft diet Denies any fever and/or chills and feels a little better compared with admission 12/06/2020 The patient was seen and examined in telemetry unit I took care of her for 2 days during my last hospitalist rounding session She was moved to telemetry unit last night on intravenous amiodarone due to atrial fibrillation with rapid ventricular response and low blood pressure She remains weak and lethargic as of this morning but denies any chest pain, palpitation, abdominal pain, nausea no vomiting, or any increasing shortness of breath 12/07/2020 The patient was seen and examined in telemetry unit She has been very depressed and does not want to live anymore After a long discussion she managed to smile and wants to try to eat and drink a little bit Complains to profound weakness but denies any other significant symptoms except ongoing anorexia 12/08/2020 The patient was seen and examined in telemetry unit She remains weak and lethargic She gets a small amount of breakfast this morning She denies any other significant symptoms 12-09-20 The patient was seen and examined in telemetry unit She remains weak and lethargic She has been discussing with Dr. Padron for further management plan 12/10/2020 The patient was seen and examined in telemetry unit She has been very lethargic Denies any other symptoms Voiding to go home with hospice 12/11/2020 The patient was seen and examined in telemetry unit She remains extremely weak and lethargic but denies any significant symptoms She wanted to have a dialysis catheter out-which will be discussed with her She will be going home with hospice tomorrow Review of Systems Review of Systems: All systems reviewed and are unremarkable except as noted below Gastrointestinal: + nausea; no abdominal pain and no bloating Neurologic: + generalized weakness Physical Exam Physical Exam: Lying in bed comfortably but very anxious and extremely weak Constitutional: + ill appearing and + thin Eyes: PERRL, conjunctivae normal, anicteric sclerae ENMT: external ear and nose normal, oropharynx normal Neck: trachea midline, no thyromegaly Respiratory: no respiratory distress Auscultation: + diminished lung sounds and + crackles (Minimal crackles at the bases) Cardiovascular: Rate/Rhythm: + irregularly irregular Heart Sounds: + murmur (2/6 ESM over precordium) Gastrointestinal (Abdomen): Inspection/Auscultation: normal bowel sounds; abdomen not distended Percussion/Palpation: abdomen soft; abdomen nontender Musculoskeletal: No acute arthritis in any joint Neurologic: Alert, awake and oriented x3. Generally weak and lethargic Psychiatric: A+Ox3, euthymic affect Lymphatic: no cervical or axillary lymphadenopathy Results & Data Results & Data ([facility]) Vital Signs (Past 12 Hours) Vital Signs Temp Pulse Pulse Pulse Resp BP BP 12/11/20 11:33 36.6 C 71 18 165/79 H 12/11/20 07:28 36.3 C L 80 17 131/72 12/11/20 03:09 36.2 C L 74 12 120/61 12/11/20 02:37 95 H Pulse Ox 12/11/20 11:33 92 12/11/20 07:28 100 12/11/20 03:09 95 12/11/20 02:37 Medications Administered Current Inpatient Medications Acetaminophen (Acetaminophen 325 Mg Tab) 650 mg PO Q4H PRN PRN Reason: Pain or Fever Stop: 12/26/20 07:24 Amiodarone HCl (Amiodarone 200 Mg Tab) 400 mg PO BIDM [facility] Stop: 01/06/21 16:59 Last Admin: 12/11/20 09:31 Dose: 400 mg Documented by: Aripiprazole (Aripiprazole 1 Mg/Ml Oral Soln 150 Ml Btl) 2 mg PO QAM [facility] Stop: 12/26/20 08:59 Last Admin: 12/11/20 09:32 Dose: Not Given Documented by: Calcium Acetate (Calcium Acetate 667 Mg Cap/Tab) 667 mg PO TIDM [facility] Stop: 12/26/20 07:59 Last Admin: 12/11/20 12:16 Dose: Not Given Documented by: Clopidogrel Bisulfate (Clopidogrel Bisulfate 75 Mg Tab) 75 mg PO QAM [facility] Stop: 12/26/20 08:59 Last Admin: 12/11/20 09:31 Dose: 75 mg Documented by: Docusate Sodium (Docusate Sodium 100 Mg Cap) 100 mg PO QAM PRN PRN Reason: Constipation Stop: 12/26/20 07:24 Last Admin: 11/26/20 08:23 Dose: 100 mg Documented by: Dronabinol (Dronabinol 2.5 Mg Cap) 2.5 mg PO DAILY [facility] Stop: 01/05/21 08:59 Last Admin: 12/11/20 09:31 Dose: 2.5 mg Documented by: Fluoxetine HCl (Fluoxetine Hcl 20 Mg Cap) 20 mg PO QAM [facility] Stop: 12/26/20 08:59 Last Admin: 12/11/20 09:31 Dose: Not Given Documented by: Fluoxetine HCl (Fluoxetine Hcl 10 Mg Cap) 10 mg PO QAM [facility] Stop: 12/26/20 08:59 Last Admin: 12/11/20 09:31 Dose: Not Given Documented by: Heparin Sodium (Porcine) (Heparin Sod 5,000 Unit/0.5 Ml Vial) 5,000 units SQ Q12 [facility] Stop: 12/30/20 10:49 Last Admin: 12/11/20 09:31 Dose: 5,000 units Documented by: Promethazine HCl 6.25 mg/ (Sodium Chloride) 50.25 mls @ 201 mls/hr IV Q6H PRN PRN Reason: Nausea And Vomiting Stop: 01/05/21 06:26 Insulin Aspart (Insulin Aspart 100 Units/Ml 3 Ml Pen) 0 units SC ACHS [facility] Stop: 12/26/20 07:29 Last Admin: 12/11/20 09:31 Dose: Not Given Documented by: Levothyroxine Sodium (Levothyroxine Sodium 200 Mcg Tablet) 200 mcg PO DAILYBB [facility] Stop: 12/26/20 07:59 Last Admin: 12/11/20 05:57 Dose: 200 mcg Documented by: Loratadine (Loratadine 10 Mg Tab) 10 mg PO QAM [facility] Stop: 12/26/20 08:59 Last Admin: 12/11/20 09:36 Dose: Not Given Documented by: Lorazepam (Lorazepam 1 Mg Tab) 1 mg SL Q4H PRN PRN Reason: Agitation Stop: 01/09/21 18:44 Last Admin: 12/10/20 21:24 Dose: 1 mg Documented by: Metoprolol Succinate (Metoprolol Succ 50mg Ext Rel Tab) 50 mg PO BID [facility] Stop: 01/05/21 08:59 Last Admin: 12/11/20 09:31 Dose: 50 mg Documented by: Nitroglycerin (Nitroglycerin Sl 0.4 Mg/Tab Tab) 0.4 mg SL UD PRN PRN Reason: Chest Pain Stop: 12/26/20 07:24 Tramadol HCl (Tramadol Hcl 50 Mg Tablet) 50 mg PO HS PRN PRN Reason: leg pain Stop: 12/26/20 07:24 Vitamin B Complex/Folic Acid (Nephrocaps) 1 cap PO HS [facility] Stop: 12/26/20 20:59 Last Admin: 12/10/20 21:24 Dose: Not Given Documented by: Vitamin D (Cholecalciferol 1,000 Units 25 Mcg Tab) 5,000 units PO QAM [facility] Stop: 12/26/20 08:59 Last Admin: 12/11/20 09:32 Dose: Not Given Documented by: Zinc Sulfate (Zinc Sulfate 220 Mg Capsule) 220 mg PO HS [facility] Stop: 12/26/20 20:59 Last Admin: 12/10/20 21:24 Dose: Not Given Documented by: (1) Diabetes mellitus, type II 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
[2020-12-11] MEDS: ZINC SULFATE 220 MG CAPSULE PO SCH (21:28)
[2020-12-11] MEDS: NEPHROCAPS PO SCH (21:28)
[2020-12-12] MEDS: LORazepam 1 MG TAB SL PRN ×2 (01:11→07:49)
[2020-12-12] MEDS: LEVOTHYROXINE SODIUM 200 MCG TABLET PO SCH (05:44)
[2020-12-12] MEDS: INSULIN ASPART 100 UNITS/ML 3 ML PEN SC SCH ×3 (07:49→17:45)
[2020-12-12] MEDS: CLOPIDOGREL BISULFATE 75 MG TAB PO SCH (07:50)
[2020-12-12] MEDS: FLUoxetine HCL 10 MG CAP PO SCH (07:51)
[2020-12-12] MEDS: ARIPIprazole 1 MG/ML ORAL SOLN 150 ML BTL PO SCH (07:51)
[2020-12-12] MEDS: FLUoxetine HCL 20 MG CAP PO SCH (07:51)
[2020-12-12] MEDS: METOPROLOL SUCC 50MG EXT REL TAB PO SCH (07:51)
[2020-12-12] MEDS: CHOLECALCIFEROL 1,000 UNITS 25 MCG TAB PO SCH (07:51)
[2020-12-12] MEDS: CALCIUM ACETATE 667 MG CAP/TAB PO SCH ×3 (07:51→17:14)
[2020-12-12] MEDS: AMIODARONE 200 MG TAB PO SCH ×2 (07:51→17:24)
[2020-12-12] MEDS: HEPARIN SOD 5,000 UNIT/0.5 ML VIAL SQ SCH (07:52)
[2020-12-12] MEDS: LORATADINE 10 MG TAB PO SCH (07:52)
--- NOTE | 2020-12-12 11:37 | Palliative Care Progress Note ---
Date of Service December 12, 2020 Assessment & Plan (1) Anxiety: Jemma has been very anxious about what to expect and making decisions for her care. She has decided not to pursue further dialysis and has been thinking a lot about what her dying time will be like. (2) Anorexia: Improved. She has been eating more. Discussed with her daughter at bedside that this may wax and wane and that it is great if she wants to eat but expected, and also ok that she may not want to eat. (3) Palliative care encounter: Spoke with her daughter at bedside with questions about prognosis. She is struggling with Jemma eating a little more and whether she should stop dialysis. We reviewed that Jemma made the decision, on her own, to stop dialysis with her current quality of life. She had been considering whether she even wanted to start dialysis in March and has had good family time for the last nine months. She has also had increasing difficulty tolerating dialysis with rapid afib, anorexia and hypotension. The family supports her decision and have made arrangements to take turns staying with her to provide 24/7 care at home. Her daughter also had concerns about what medications Jemma would be taking and we talked about monitoring her medications and adjusting as she is able to tolerate them and they are providing comfort for her. We discussed hospice care at home and hospice nurses will be able to help them with what to expect and how to support Jemma moving forward. (4) Severe protein-calorie malnutrition: (5) Atrial fibrillation with tachycardic ventricular rate: (6) End-stage renal disease on hemodialysis: Admission and Anticipated Discharge Date Admission Date: November 26, 2020 Subjective Sleeping. Had prn ativan earlier this morning. Per her daughter, she was very anxious this morning. Review of Systems 2 Review of Systems: Unobtainable due to reduced consciousness Physical Exam Constitutional: no acute distress ENMT: Mouth: + dry oral mucous membranes Respiratory: normal respiratory effort; no labored breathing Cardiovascular: Rate/Rhythm: + irregularly irregular Musculoskeletal: Extremities: + muscle atrophy Results & Data ([facility]) Vital Signs (Past 12 Hours) Vital Signs Temp Pulse Pulse Pulse Resp BP Pulse Ox 12/12/20 07:32 98.8 F 69 18 127/70 96 12/12/20 03:32 97.3 F L 93 H 20 132/69 98 12/12/20 00:30 89 07/11/21 23:40 97.3 F L 67 20 120/73 99 PG Care Time/CCT Total # of Minutes Spent Total Time Spent with Patient: Total time spent is greater than 50% in coordination of care (as documented) at patient's floor/unit and/or counseling patient: total time spent 35 minutes with more than 50% of time spent on family education and support, symptom management. Coding Level of Care Code 32077 Subseq Hosp Care Lvl 3 Diagnoses Anxiety F41.9 Anorexia R63.0 Palliative care encounter Z51.5 Severe protein-calorie malnutrition E43 Atrial fibrillation with tachycardic ventricular rate I48.91 End-stage renal disease on hemodialysis N18.6; Z99.2
--- NOTE | 2020-12-12 12:43 | Hospitalist Progress Note ---
Date of Service December 12, 2020 Assessment & Plan (1) Abdominal pain: Palliative care encounter Appreciate palliative care input and recommendation Will have a family meeting and further management plan will be outlined All of her sons is coming from out of state to have additional meeting with the palliative care team Appreciate palliative care reevaluation Patient will be discharged home on Saturday with hospice and discontinue dialysis Hospice nurse has been talking to the family members for transition to go home from hospital Remains stable with profound weakness Will be discharged home with hospice tomorrow Medications will be given as tolerated Appreciate palliative care recommendation End-stage renal disease Hemodialysis has been stopped since yesterday 12/10/2020 Will not take out the dialysis catheter This was discussed in detail with the patient Abdominal pain is after food intake and is described as acute for the past 3-4 weeks. Timing went along with initiation of Remeron which has been stopped. Significant weight loss is present and patient has well-known underlying depression that is likely contributing. CT performed on admission but without contrast-reveals pneumatosis intestinalis. No convincing evidence for acute bowel ischemia incl normal stool, intermittent pain, and clear CTA of the abdomen did not show any major vessel thrombosis and obstruction to suggest ischemic bowel Has nonspecific colitis without any definitive abscess Has been on Marinol since yesterday to increase appetite Denies any more abdominal pain but remains anorexic Trying to eat some food and not been having any problemDenies any more abdominal pain, nausea and or vomiting Has been tolerating minimal amount of food Denies any more abdominal pain, nausea and or vomiting Has been tolerating minimal amount of food (2) Colitis: nonspecific colitis that appears to be improving on serial CT imaging. Completed course of antibiotics and is feeling better from this standpoint. No other signs and or symptoms of infection (3) Pneumatosis intestinalis: appears to have resolved on updated scan. (4) Abnormal LFTs: Possibly secondary to medications (Remeron), which has been stopped. Trending down. Followup as outpatient with PCP. We will monitor LFTs since amiodarone has been started (5) Atrial fibrillation: Persistent afib with some RVR-she is dry and not taking in enough fluids. Ultrafiltration was cut back recently. Per Nephrology, she appears to be at her baseline hemodynamically including periods of hypotension and tachycardia. She has been seen in the Cardiology clinic for the past 6 months with recent adjustments in her beta opal. She was transitioned from Coreg to Metoprolol in Jun 2020 and titrated up to her current dose in October 2020. She remains tachycardic with intermittent heart rates in the 120-130s. Cont to encourage hydration by mouth. A. fib with RVR last night With systolic blood pressure at around 70s No improvement of her condition with intravenous digoxin and also IV fluid boluses She was started with intravenous amiodarone and was transferred to telemetry unit Blood pressure seems to be stable this morning and the heart rate is stable too Will have amiodarone 400 mg p.o. twice daily after completion of IV amiodarone Rate seems to be controlled and is 98 as of this morning Continue amiodarone as long as she can tolerate (6) Severe protein-calorie malnutrition: Significant weight loss, likely multifactorial etiology including multiple comorbidities, severe depression and poor PO intake in recent months. Remeron has been stopped. Still uncertain etiology of recent abdominal pain prompting admission. Failure to thrive picture. Appreciate palliative care input and recommendation Advised to eat and drink as little as she can She has been trying to eat and drink as much as she can She has been trying to eat and drink (7) Generalized weakness: Poor PO intake, PT/OT evaluation-recommend SNF which she and her family are considering. (8) End-stage renal disease on hemodialysis: Has been on hemodialysis and will continue //Sat regimen We will continue hemodialysis (9) Diabetes mellitus, type II: SSI, minimal insulin required. (10) DVT prophylaxis: heparin CODE STATUS Changed to DNR by my previous hospitalist after discussion with the patient Remains DNR for now Plan to discharge today with hospice care at home Admission and Anticipated Discharge Date Admission Date: November 26, 2020 Subjective 11/27/2020 The patient was seen and examined in medical telemetry unit She has been complaining of nausea without any vomiting and the abdominal pain is almost gone Remains generally weak and lethargic Has been feeling much better overall 11/28/2020 The patient was seen and examined in medical telemetry unit She complains to have some nausea but denies any abdominal pain She has had issues with swallowing of pills yesterday and this morning Has had evaluation by the speech and advised to continue with soft diet Denies any fever and/or chills and feels a little better compared with admission 12/06/2020 The patient was seen and examined in telemetry unit I took care of her for 2 days during my last hospitalist rounding session She was moved to telemetry unit last night on intravenous amiodarone due to atrial fibrillation with rapid ventricular response and low blood pressure She remains weak and lethargic as of this morning but denies any chest pain, palpitation, abdominal pain, nausea no vomiting, or any increasing shortness of breath 12/07/2020 The patient was seen and examined in telemetry unit She has been very depressed and does not want to live anymore After a long discussion she managed to smile and wants to try to eat and drink a little bit Complains to profound weakness but denies any other significant symptoms except ongoing anorexia 12/08/2020 The patient was seen and examined in telemetry unit She remains weak and lethargic She gets a small amount of breakfast this morning She denies any other significant symptoms 12-09-20 The patient was seen and examined in telemetry unit She remains weak and lethargic She has been discussing with Dr. Padron for further management plan 12/10/2020 The patient was seen and examined in telemetry unit She has been very lethargic Denies any other symptoms Voiding to go home with hospice 12/11/2020 The patient was seen and examined in telemetry unit She remains extremely weak and lethargic but denies any significant symptoms She wanted to have a dialysis catheter out-which will be discussed with her She will be going home with hospice tomorrow 12/12/2020 The patient was seen and examined in telemetry unit She remains extremely weak and lethargic but denies any significant symptoms She has anxiety but no abdominal discomfort, no nausea no vomiting She does not want to go through the process of taking out the dialysis catheter Review of Systems Review of Systems: All systems reviewed and are unremarkable except as noted below Physical Exam Physical Exam: Lying in bed comfortably but very anxious and extremely weak Constitutional: + ill appearing and + thin Eyes: PERRL, conjunctivae normal, anicteric sclerae ENMT: external ear and nose normal, oropharynx normal Neck: trachea midline, no thyromegaly Respiratory: no respiratory distress Auscultation: + diminished lung sounds and + crackles (Minimal crackles at the bases) Cardiovascular: Rate/Rhythm: + irregularly irregular Heart Sounds: + murmur (2/6 ESM over precordium) Gastrointestinal (Abdomen): Inspection/Auscultation: normal bowel sounds; abdomen not distended Percussion/Palpation: abdomen soft; abdomen nontender Musculoskeletal: No acute arthritis in any joint Neurologic: Alert and awake. Pleasantly confused. Extremely weak and lethargic. Hops all extremities Psychiatric: Orientation: alert and oriented x 3 Affect: + anxious affect Mood: + depressed mood Lymphatic: no cervical or axillary lymphadenopathy Results & Data Results & Data ([facility]) Vital Signs (Past 12 Hours) Vital Signs Temp Pulse Pulse Pulse Resp BP Pulse Ox 12/12/20 08:00 67 12/12/20 07:32 37.1 C 69 18 127/70 96 12/12/20 03:32 36.3 C L 93 H 20 132/69 98 Medications Administered Current Inpatient Medications Acetaminophen (Acetaminophen 325 Mg Tab) 650 mg PO Q4H PRN PRN Reason: Pain or Fever Stop: 12/26/20 07:24 Amiodarone HCl (Amiodarone 200 Mg Tab) 400 mg PO BIDM [facility] Stop: 01/06/21 16:59 Last Admin: 12/12/20 07:51 Dose: 400 mg Documented by: Aripiprazole (Aripiprazole 1 Mg/Ml Oral Soln 150 Ml Btl) 2 mg PO QAM [facility] Stop: 12/26/20 08:59 Last Admin: 12/12/20 07:51 Dose: Not Given Documented by: Calcium Acetate (Calcium Acetate 667 Mg Cap/Tab) 667 mg PO TIDM [facility] Stop: 12/26/20 07:59 Last Admin: 12/12/20 11:37 Dose: Not Given Documented by: Clopidogrel Bisulfate (Clopidogrel Bisulfate 75 Mg Tab) 75 mg PO QAM [facility] Stop: 12/26/20 08:59 Last Admin: 12/12/20 07:50 Dose: 75 mg Documented by: Docusate Sodium (Docusate Sodium 100 Mg Cap) 100 mg PO QAM PRN PRN Reason: Constipation Stop: 12/26/20 07:24 Last Admin: 11/26/20 08:23 Dose: 100 mg Documented by: Dronabinol (Dronabinol 2.5 Mg Cap) 2.5 mg PO DAILY [facility] Stop: 01/05/21 08:59 Last Admin: 12/12/20 07:49 Dose: 2.5 mg Documented by: Fluoxetine HCl (Fluoxetine Hcl 20 Mg Cap) 20 mg PO QAM [facility] Stop: 12/26/20 08:59 Last Admin: 12/12/20 07:51 Dose: Not Given Documented by: Fluoxetine HCl (Fluoxetine Hcl 10 Mg Cap) 10 mg PO QAM [facility] Stop: 12/26/20 08:59 Last Admin: 12/12/20 07:51 Dose: Not Given Documented by: Heparin Sodium (Porcine) (Heparin Sod 5,000 Unit/0.5 Ml Vial) 5,000 units SQ Q12 [facility] Stop: 12/30/20 10:49 Last Admin: 12/12/20 07:52 Dose: Not Given Documented by: Promethazine HCl 6.25 mg/ (Sodium Chloride) 50.25 mls @ 201 mls/hr IV Q6H PRN PRN Reason: Nausea And Vomiting Stop: 01/05/21 06:26 Insulin Aspart (Insulin Aspart 100 Units/Ml 3 Ml Pen) 0 units SC ACHS [facility] Stop: 12/26/20 07:29 Last Admin: 12/12/20 12:37 Dose: Not Given Documented by: Levothyroxine Sodium (Levothyroxine Sodium 200 Mcg Tablet) 200 mcg PO DAILYBB [facility] Stop: 12/26/20 07:59 Last Admin: 12/12/20 05:44 Dose: 200 mcg Documented by: Loratadine (Loratadine 10 Mg Tab) 10 mg PO QAM [facility] Stop: 12/26/20 08:59 Last Admin: 12/12/20 07:52 Dose: Not Given Documented by: Lorazepam (Lorazepam 1 Mg Tab) 1 mg SL Q4H PRN PRN Reason: Agitation Stop: 01/09/21 18:44 Last Admin: 12/12/20 07:49 Dose: 1 mg Documented by: Metoprolol Succinate (Metoprolol Succ 50mg Ext Rel Tab) 50 mg PO BID [facility] Stop: 01/05/21 08:59 Last Admin: 12/12/20 07:51 Dose: 50 mg Documented by: Nitroglycerin (Nitroglycerin Sl 0.4 Mg/Tab Tab) 0.4 mg SL UD PRN PRN Reason: Chest Pain Stop: 12/26/20 07:24 Tramadol HCl (Tramadol Hcl 50 Mg Tablet) 50 mg PO HS PRN PRN Reason: leg pain Stop: 12/26/20 07:24 Vitamin B Complex/Folic Acid (Nephrocaps) 1 cap PO [facility] Stop: 12/26/20 20:59 Last Admin: 12/11/20 21:28 Dose: Not Given Documented by: Vitamin D (Cholecalciferol 1,000 Units 25 Mcg Tab) 5,000 units PO QAM [facility] Stop: 12/26/20 08:59 Last Admin: 12/12/20 07:51 Dose: Not Given Documented by: Zinc Sulfate (Zinc Sulfate 220 Mg Capsule) 220 mg PO [facility] Stop: 12/26/20 20:59 Last Admin: 12/11/20 21:28 Dose: Not Given Documented by: (1) Diabetes mellitus, type II 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
--- NOTE | 2020-12-12 17:00 | Discharge Summary ---
Date of Service December 12, 2020 Admission HPI Per Admitting Provider DICTATED BY: Hipolito aVca MD DATE OF ADMISSION: 11/26/2020. CHIEF COMPLAINT: Weakness, poor appetite. HISTORY OF PRESENT ILLNESS: This is an 85-year-old female with a past medical history significant for persistent atrial fibrillation, diastolic CHF, recurrent pleural effusion requiring multiple thoracenteses, history of severe mitral regurgitation due to prolapse of the P2 segment, status post minimally invasive mitral valve repair with resection of the P2 leaflet and placement of Conklin mitral valve annuloplasty, patent foramen ovale, status post surgical closure at the time of the mitral valve repair, nonobstructive CAD with mild pulmonary hypertension, history of venous insufficiency, both lower extremities, history of chronic lymphedema, rheumatic fever as a child, type 2 diabetes, end-stage renal disease on hemodialysis, history of CVA, history of hypertension, hyperlipidemia, hypothyroidism, depression, pulmonary nodule, GERD, hernia, mild obstructive sleep apnea, osteoporosis, zinc deficiency, osteoarthritis of multiple joints, diabetic polyneuropathy, iron deficiency anemia. Patient lives with her . Walks with help of walker and also uses cane, was brought in by daughter because of abdominal discomfort, poor appetite and weakness. Patient was started on Remeron about a month ago since then as per daughter, she is sleeping okay, but she is having poor appetite. She is only drinking protein shakes twice a day and eating cereals, but not eating much solid food and also patient was complaining of abdominal pain, on and off, about 8/10 in severity. She states the pain is more when she eats. Denies any diarrhea or constipation. Somewhat nauseous and the abdominal pain is going on for the last couple of weeks. When she is drinking, she is swallowing okay. Has some headache, no blurred visions, no earache, no sore throat, no cough, no fever, no chills, no chest pain. She feels short of breath when lying flat, swelling of the legs is better. Makes little urine. Currently, resting comfortable and hemodynamically stable. Admission Exam Per Admitting Provider GENERAL: The patient is old and frail, not in acute distress. VITAL SIGNS: Temperature 36.6, pulse 90, respiratory rate 20, blood pressure 112/89, oxygen 100% on room air. HEENT: Pupils equal, round and reactive to light. Oral mucosa moist. NECK: No neck masses. CARDIOVASCULAR: S1 and S2 heard. Regular rate and rhythm. No murmur, no gallop. RESPIRATORY SYSTEM: Normal AP diameter. No accessory muscle use. No wheeze, no crackles. ABDOMEN: Soft, bowel sounds present, nontender, no distention, no guarding, no rigidity. NEUROLOGIC: Cranial nerves II-XII grossly nonfocal. EXTREMITIES: Chronic skin changes seen. Mild edema, no erythema seen. Principal Diagnosis End-stage renal disease-off dialysis, severe protein calorie malnutrition, generalized weakness, severe anorexia, atrial fibrillation. Discharge Exam Constitutional + ill appearing and + thin Eyes PERRL, conjunctivae normal, anicteric sclerae ENMT external ear and nose normal, oropharynx normal Neck trachea midline, no thyromegaly Respiratory no respiratory distress Auscultation: + diminished lung sounds and + crackles (Minimal crackles at the bases) Cardiovascular Rate/Rhythm: + irregularly irregular Heart Sounds: + murmur (2/6 ESM over precordium) Gastrointestinal (Abdomen) Inspection/Auscultation: normal bowel sounds; abdomen not distended Percussion/Palpation: abdomen soft; abdomen nontender Psychiatric A+Ox3, euthymic affect Orientation: alert and oriented x 3 Affect: + anxious affect Mood: + depressed mood Lymphatic no cervical or axillary lymphadenopathy Discharge Data Allergies Allergy/AdvReac Type Severity Reaction Status Date / Time No Known Allergies Allergy Verified 11/26/20 00:03 Consultations 11/26/20 04:19 Consult General Surgery Stat ED Decision to Admit Stat 11/26/20 08:00 Consult Nephrology Routine 11/30/20 10:34 Consult Gastroenterology Routine 11/30/20 10:49 Consult Cardiology Routine 12/02/20 17:14 Consult Palliative Care Routine Ordered Studies 11/26/20 01:55 CT abd pelvis wo con Urgent 11/30/20 13:43 CT angio abdomen pelvis w con Routine 12/06/20 05:21 CT abd pelvis wo con Urgent Hospital Course (1) Abdominal pain: Palliative care encounter Appreciate palliative care input and recommendation Will have a family meeting and further management plan will be outlined All of her sons is coming from out of state to have additional meeting with the palliative care team Appreciate palliative care reevaluation Patient will be discharged home on Saturday with hospice and discontinue dialysis Hospice nurse has been talking to the family members for transition to go home from hospital Remains stable with profound weakness Will be discharged home with hospice tomorrow Medications will be given as tolerated Appreciate palliative care recommendation End-stage renal disease Hemodialysis has been stopped since yesterday 12/10/2020 Will not take out the dialysis catheter This was discussed in detail with the patient Abdominal pain is after food intake and is described as acute for the past 3-4 weeks. Timing went along with initiation of Remeron which has been stopped. Significant weight loss is present and patient has well-known underlying depression that is likely contributing. CT performed on admission but without contrast-reveals pneumatosis intestinalis. No convincing evidence for acute bowel ischemia incl normal stool, intermittent pain, and clear CTA of the abdomen did not show any major vessel thrombosis and obstruction to suggest ischemic bowel Has nonspecific colitis without any definitive abscess Has been on Marinol since yesterday to increase appetite Denies any more abdominal pain but remains anorexic Trying to eat some food and not been having any problemDenies any more abdominal pain, nausea and or vomiting Has been tolerating minimal amount of food Denies any more abdominal pain, nausea and or vomiting Has been tolerating minimal amount of food (2) Colitis: nonspecific colitis that appears to be improving on serial CT imaging. Completed course of antibiotics and is feeling better from this standpoint. No other signs and or symptoms of infection (3) Pneumatosis intestinalis: appears to have resolved on updated scan. (4) Abnormal LFTs: Possibly secondary to medications (Remeron), which has been stopped. Trending down. Followup as outpatient with PCP. We will monitor LFTs since amiodarone has been started (5) Atrial fibrillation: Persistent afib with some RVR-she is dry and not taking in enough fluids. Ultrafiltration was cut back recently. Per Nephrology, she appears to be at her baseline hemodynamically including periods of hypotension and tachycardia. She has been seen in the Cardiology clinic for the past 6 months with recent adjustments in her beta opal. She was transitioned from Coreg to Metoprolol in Jun 2020 and titrated up to her current dose in October 2020. She remains tachycardic with intermittent heart rates in the 120-130s. Cont to encourage hydration by mouth. A. fib with RVR last night With systolic blood pressure at around 70s No improvement of her condition with intravenous digoxin and also IV fluid boluses She was started with intravenous amiodarone and was transferred to telemetry unit Blood pressure seems to be stable this morning and the heart rate is stable too Will have amiodarone 400 mg p.o. twice daily after completion of IV amiodarone Rate seems to be controlled and is 98 as of this morning Continue amiodarone as long as she can tolerate (6) Severe protein-calorie malnutrition: Significant weight loss, likely multifactorial etiology including multiple comorbidities, severe depression and poor PO intake in recent months. Remeron has been stopped. Still uncertain etiology of recent abdominal pain prompting admission. Failure to thrive picture. Appreciate palliative care input and recommendation Advised to eat and drink as little as she can She has been trying to eat and drink as much as she can She has been trying to eat and drink (7) Generalized weakness: Poor PO intake, PT/OT evaluation-recommend SNF which she and her family are considering. (8) End-stage renal disease on hemodialysis: Has been on hemodialysis and will continue //Sat regimen We will continue hemodialysis (9) Diabetes mellitus, type II: SSI, minimal insulin required. (10) DVT prophylaxis: heparin CODE STATUS Changed to DNR by my previous hospitalist after discussion with the patient Remains DNR for now Plan to discharge today with hospice care at home Total Time Total Time Spent Total Time Spent (In Minutes): 45 minutes Total Time Includes: Examination of the Patient, Discharge Planning, Medication Reconciliation and Communication With Other Providers Discharge Plan Discharge Items Patient Disposition: Hospice - Home Reason For Visit: WEAKNESS Discharge Diagnosis: End-stage renal disease-off dialysis, severe protein calorie malnutrition, generalized weakness, severe anorexia, atrial fibrillation. Condition on Discharge: Fair Activity: As commented below Activity Comment: Will need assistance with ADL S Non-emergency contact: Primary Care Provider Call non-emergency contact if: you have any medication questions and your symptoms worsen Follow-up/Referrals: Suzanne Adams MD [Primary Care Provider] - Diet: Regular Diet Texture: Dental soft (bite-sized) Diet Comment: Diet as tolerated Addtl Attending Provider Instructions: Please take precaution to avoid falls Will need assistance in ADL S Her medications were continued and will be maintained as much as she can take Adjust medications as per hospice care Pending Studies at Discharge: No Stand-Alone Forms: My [facility] [employer] Medications and DC Order Prescriptions: New amiodarone 200 mg Tablet 200 mg PO BIDM Qty: 30 RF: 0 lorazepam 1 mg Tablet 1 mg sublingual Q4H PRN (Reason: anxiety) Qty: 20 RF: 0 dronabinol 2.5 mg Capsule 2.5 mg PO DAILY Qty: 20 RF: 0 morphine 10 mg/5 mL solution 2.5 mg PO Q6H PRN (Reason: pain) Qty: 5 RF: 0 Continued Renal Caps 1 mg Capsule 1 cap PO HS Qty: 30 RF: 0 calcium acetate 667 mg Tablet 667 mg PO TIDM RF: 0 fluoxetine [Prozac] 20 mg Capsule 20 mg PO QAM RF: 0 cholecalciferol (vitamin D3) [Vitamin D3] 125 mcg (5,000 unit) Tablet 125 mcg PO QAM RF: 0 loratadine 10 mg Capsule 10 mg PO QAM RF: 0 clopidogrel [Plavix] 75 mg Tablet 75 mg PO QAM RF: 0 acetaminophen [Tylenol Extra Strength] 500 mg Tablet 500 - 1,000 mg PO Q6H PRN (Reason: Pain) RF: 0 docusate sodium 100 mg Capsule 100 mg PO QAM PRN (Reason: Constipation) RF: 0 aripiprazole [Abilify] 2 mg Tablet 2 mg PO QAM RF: 0 zinc sulfate [Zinc-220] 220 (50) mg Capsule 220 mg PO HS RF: 0 albuterol sulfate 90 mcg/actuation HFA aerosol inhaler 2 puff INHALATION QID PRN (Reason: Wheezing) RF: 0 fluoxetine 10 mg Tablet 10 mg PO QAM RF: 0 levothyroxine 200 mcg tablet 200 mcg PO DAILY RF: 0 Changed metoprolol succinate 100 mg Tablet Extended Release 24 Hr 50 mg PO BID Qty: 0 RF: 0 Discontinued tramadol 50 mg Tablet 50 mg PO HS PRN (Reason: leg pain) RF: 0 Lantus U-100 Insulin 100 unit/mL Solution 10 unit SUBCUT QAM RF: 0 semaglutide 1 mg/dose (2 mg/1.5 mL) Pen Injector 1 mg SUBCUT WK RF: 0 mirtazapine 15 mg Tablet 15 mg PO HS RF: 0 Discharge Orders: Discharge Order (Routine); Ordered 12/12/20 Ordered By: Paula Shirley Admission Data Admit Date/Time: 11/26/20 06:06 Attending Provider: Paula Shirley Admit Provider: Hipolito Vaca Primary Care Provider: Suzanne Adams Other Providers: Jam Thapa ; Segun Jamison ; Hipolito Vaca ; Caitlin Bowers ; Yasir Dalton ; Shamir Warner ; Marya Padron ; Mishel Valera
== END 2020-12-12 19:40 | disposition hospice, home (50) | DRG 393 ==
LOC: ED 22:58 → SUATTDRO 11-26 06:06 → 2S 11-26 06:06 → 2W 11-26 20:18 → 2S 12-06 06:01
DX: Z99.2 Dependence on renal dialysis; J44.9 Chronic obstructive pulmonary disease, unspecified; E87.2 Acidosis; Z91.81 History of falling; Z79.899 Other long term (current) drug therapy; Z98.84 Bariatric surgery status; I13.2 Hypertensive heart and chronic kidney disease with heart failure and with stage 5 chronic kidney disease, or end stage renal disease; K91.1 Postgastric surgery syndromes; Z51.5 Encounter for palliative care; R63.0 Anorexia; E60 Dietary zinc deficiency; I48.19 Other persistent atrial fibrillation; K52.9 Noninfective gastroenteritis and colitis, unspecified; Z51.81 Encounter for therapeutic drug level monitoring; Z77.22 Contact with and (suspected) exposure to environmental tobacco smoke (acute) (chronic); Z66 Do not resuscitate; T43.025A Adverse effect of tetracyclic antidepressants, initial encounter; Z86.73 Personal history of transient ischemic attack (TIA), and cerebral infarction without residual deficits; E03.9 Hypothyroidism, unspecified; I50.32 Chronic diastolic (congestive) heart failure; I27.20 Pulmonary hypertension, unspecified; Z95.0 Presence of cardiac pacemaker; E43 Unspecified severe protein-calorie malnutrition; F41.9 Anxiety disorder, unspecified; Z79.02 Long term (current) use of antithrombotics/antiplatelets; E55.9 Vitamin D deficiency, unspecified; I25.10 Atherosclerotic heart disease of native coronary artery without angina pectoris; Z79.890 Hormone replacement therapy; I87.2 Venous insufficiency (chronic) (peripheral); F32.9 Major depressive disorder, single episode, unspecified; I49.5 Sick sinus syndrome; D63.1 Anemia in chronic kidney disease; K63.89 Other specified diseases of intestine; R53.1 Weakness; E11.43 Type 2 diabetes mellitus with diabetic autonomic (poly)neuropathy; I95.1 Orthostatic hypotension; N18.6 End stage renal disease; E11.42 Type 2 diabetes mellitus with diabetic polyneuropathy; Z87.74 Personal history of (corrected) congenital malformations of heart and circulatory system; E86.0 Dehydration; R62.7 Adult failure to thrive; Z87.891 Personal history of nicotine dependence; M81.0 Age-related osteoporosis without current pathological fracture; K55.1 Chronic vascular disorders of intestine; Z79.4 Long term (current) use of insulin; E11.22 Type 2 diabetes mellitus with diabetic chronic kidney disease; R94.5 Abnormal results of liver function studies